=== PATIENT | female | born 1940 | race Caucasian/White ===

== ENCOUNTER 2018-06-01 19:38 | Inpatient (IN) | payer MEDICARE, BC ==
--- NOTE | 2018-06-01 22:15 | ED ---
Altered Mental Status HPI - General Chief Complaint: Altered Mental Status Stated Complaint: hallucinating Time Seen by Provider: 06/01/18 21:16 Source: family Mode of arrival: wheelchair Limitations: no limitations - History of Present Illness Initial Comments: This patient is a 78-year-old woman brought here to be evaluated because she was confused and disoriented. This came on tonight just after the patient had incision and drainage of an abscess that is located in the right groin area. This was performed at her primary care doctor's office, and following the procedure she had been given a dose of clindamycin. After the procedure, the patient was not acting appropriately. The patient's son called the clinic and they were directed to come to the emergency department. The patient does report that the abscess had been there probably for about a week. She denies fever or chills. She was denying systemic symptoms, including no chest pain, palpitations, or dyspnea. The main issue with the abscess was localized swelling and tenderness. MD Complaint: altered mental status, confusion -: hour(s) Severity: moderate - Related Data Home Medications Medication Instructions Recorded Confirmed Aspirin EC [Ecotrin Low Dose] 81 mg PO DAILY 09/30/13 06/01/18 Levothyroxine Sodium [Synthroid] 150 mcg PO DAILY 09/30/13 06/01/18 Docusate Sodium [Dulcolax Stool 100 mg PO DAILY 11/07/14 06/01/18 Softener] Pravastatin Sodium [Pravachol] 80 mg PO HS 11/07/14 06/01/18 Gabapentin [Neurontin] 300 mg PO HS 06/01/18 06/01/18 Losartan/Hydrochlorothiazide 1 tab PO DAILY 06/01/18 06/01/18 [Losartan-Hctz 100-25 mg Tab] Mirabegron [Myrbetriq] 25 mg PO DAILY 06/01/18 06/01/18 Multivitamins, Thera [Multivitamin 1 tab PO DAILY 06/01/18 06/01/18 (formulary)] Rivaroxaban [Xarelto] 15 mg PO DAILY 06/01/18 06/01/18 Sotalol [Betapace] 80 mg PO BID 06/01/18 06/01/18 Ticagrelor [Brilinta] 90 mg PO BID 01/08/19 01/08/19 Vortioxetine Hydrobromide 10 mg PO DAILY 06/01/18 06/01/18 [Trintellix] Allergies Allergy/AdvReac Type Severity Reaction Status Date / Time atorvastatin calcium Allergy MUSCLE Verified 06/01/18 21:23 [From Lipitor] ACHES azithromycin Allergy Rash/Hives Verified 06/01/18 21:23 [From Zithromax Z-Chau] codeine Allergy Unknown Verified 06/01/18 21:23 fluticasone propionate Allergy Unknown Verified 06/01/18 21:23 [From Flonase] hydrochlorothiazide Allergy Unknown Verified 06/01/18 21:23 [From Dyazide] lincomycin HCl Allergy Unknown Verified 06/01/18 21:23 [From Lincocin] meperidine HCl [From Demerol] Allergy Unknown Verified 06/01/18 21:23 metronidazole [From Flagyl] Allergy Unknown Verified 06/01/18 21:23 Metronidazole HCl Allergy Unknown Verified 06/01/18 21:23 [From Flagyl] Penicillins Allergy Unknown Verified 06/01/18 21:23 rosuvastatin calcium Allergy MUSCLE Verified 06/01/18 21:23 [From Crestor] ACHES Sulfa (Sulfonamide Allergy Unknown Verified 06/01/18 21:23 Antibiotics) tetracycline [Tetracycline] Allergy Unknown Verified 06/01/18 21:23 triamterene [From Dyazide] Allergy Unknown Verified 06/01/18 21:23 watermelon Allergy Swelling Uncoded 01/10/15 17:37 Review of Systems ROS Statement: Those systems with pertinent positive or pertinent negative responses have been documented in the HPI. ROS Other: All systems not noted in ROS Statement are negative. Constitutional: Denies: fever, chills Eyes: Denies: vision change Respiratory: Denies: cough, dyspnea Cardiovascular: Denies: chest pain, palpitations, syncope Gastrointestinal: Denies: abdominal pain, vomiting, diarrhea Genitourinary: Denies: dysuria, hematuria Musculoskeletal: Denies: back pain Skin: Reports: as per HPI, lesions Neurological: Reports: confusion. Denies: headache, weakness, numbness Past Medical History Past Medical History: Diabetes Mellitus, Hypertension, Osteoarthritis (OA), Pneumonia, Thyroid Disorder Additional Past Medical History / Comment(s): Right hip infection, 6-16-15 SHINGLES TO RT FACE/EYE History of Any Multi-Drug Resistant Organisms: VRE Date of last positivie culture/infection: 12/21/15 MDRO Source:: urine VRE Ec. faecalis Past Surgical History: Appendectomy, Hysterectomy, Joint Replacement, Orthopedic Surgery, Tonsillectomy Additional Past Surgical History / Comment(s): RT HIP REPLACEMENT AND HAD 3 SEPARATE SX, HAD POST OP INFECTION AND WITH LAST ONE THEY TOOK EVERYTHING OUT BUT PT THINKS THEY PUT IN SPACER. Past Anesthesia/Blood Transfusion Reactions: No Reported Reaction Past Psychological History: Depression Smoking Status: Never smoker Past Alcohol Use History: None Reported Past Drug Use History: None Reported - Past Family History Father History Unknown: Yes Family Medical History: Hypertension Additional Family Medical History / Comment(s): BRAIN TUMOR Mother Family Medical History: Cancer General Exam Limitations: no limitations General appearance: alert, in no apparent distress, obese Head exam: Present: atraumatic, normocephalic Eye exam: Present: normal appearance. Absent: scleral icterus, conjunctival injection ENT exam: Present: mucous membranes dry Neck exam: Present: normal inspection Respiratory exam: Present: normal lung sounds bilaterally. Absent: respiratory distress, wheezes, rales, rhonchi, stridor Cardiovascular Exam: Present: regular rate, normal rhythm, normal heart sounds. Absent: systolic murmur, diastolic murmur, rubs, gallop GI/Abdominal exam: Present: soft. Absent: distended, tenderness, guarding, rebound, rigid, mass Extremities exam: Present: normal inspection, normal capillary refill. Absent: pedal edema, calf tenderness Back exam: Present: normal inspection. Absent: CVA tenderness (R), CVA tenderness (L) Neurological exam: Present: alert Skin exam: Present: warm, dry, erythema, other (Patient has area of erythema to the right inguinal area. There has been drainage of what appears to be an abscess in that area. There is no active bleeding. The dressing does have a small amount of bloody purulent discharge, but there is nothing actively draining.) Course Vital Signs 06/01/18 06/02/18 06/02/18 19:44 09:19 14:38 Temperature 98.6 F 97.8 F Pulse Rate 104 H 70 Pulse Rate [ 73 Pulse Oximetery ] Respiratory 20 18 16 Rate Blood Pressure 146/80 132/64 Blood Pressure 129/70 [Left Arm] O2 Sat by Pulse 95 96 97 Oximetry Medical Decision Making - Medical Decision Making This patient is 78-year-old woman presenting to be evaluated for altered mental status after having undergone I&D for a groin abscess in the clinic. There does appear to be moderately severe overlying cellulitis, and given the patient' s comorbidities she is started on IV antibiotics will be admitted to ensure that there is improvement in the cellulitis. Patient has been under hospitalist group with consultation to surgery. - Lab Data Result diagrams: 06/05/18 08:11 06/07/18 07:02 Lab Results 06/01/18 06/01/18 06/01/18 Range/Units 21:52 21:52 21:52 WBC 20.2 H (3.8-10.6) k/uL RBC 4.16 (3.80-5.40) m/uL Hgb 10.9 L (11.4-16.0) gm/dL Hct 34.1 (34.0-46.0) % MCV 82.1 (80.0-100.0) fL MCH 26.3 (25.0-35.0) pg MCHC 32.1 (31.0-37.0) g/dL RDW 14.8 (11.5-15.5) % Plt Count 292 (150-450) k/uL Neutrophils % 85 % Lymphocytes % 6 % Monocytes % 8 % Eosinophils % 0 % Basophils % 0 % Neutrophils # 17.0 H (1.3-7.7) k/uL Lymphocytes # 1.2 (1.0-4.8) k/uL Monocytes # 1.6 H (0-1.0) k/uL Eosinophils # 0.1 (0-0.7) k/uL Basophils # 0.0 (0-0.2) k/uL Hypochromasia Slight PT 10.8 (9.0-12.0) sec INR 1.0 (<1.2) APTT 30.9 H (22.0-30.0) sec Sodium 138 (137-145) mmol/L Potassium 3.6 (3.5-5.1) mmol/L Chloride 104 (98-107) mmol/L Carbon Dioxide 26 (22-30) mmol/L Anion Gap 8 mmol/L BUN 22 H (7-17) mg/dL Creatinine 0.90 (0.52-1.04) mg/dL Est GFR (CKD-EPI)AfAm 71 (>60 ml/min/1.73 sqM) Est GFR (CKD-EPI)NonAf 62 (>60 ml/min/1.73 sqM) Glucose 168 H (74-99) mg/dL Plasma Lactic Acid Ankit (0.7-2.0) mmol/L Calcium 10.3 H (8.4-10.2) mg/dL Magnesium (1.6-2.3) mg/dL Total Bilirubin 0.9 (0.2-1.3) mg/dL AST 18 (14-36) U/L ALT 24 (9-52) U/L Alkaline Phosphatase 99 (38-126) U/L Troponin I (0.000-0.034) ng/mL Total Protein 6.9 (6.3-8.2) g/dL Albumin 3.9 (3.5-5.0) g/dL Amylase 36 (30-110) U/L Lipase 43 (23-300) U/L Urine Color Urine Appearance (Clear) Urine pH (5.0-8.0) Ur Specific [place] (1.001-1.035) Urine Protein (Negative) Urine Glucose (UA) (Negative) Urine Ketones (Negative) Urine Blood (Negative) Urine Nitrite (Negative) Urine Bilirubin (Negative) Urine Urobilinogen (<2.0) mg/dL Ur Leukocyte Esterase (Negative) Urine RBC (0-5) /hpf Urine WBC (0-5) /hpf Urine WBC Clumps (None) /hpf Ur Squamous Epith Cells (0-4) /hpf Amorphous Sediment (None) /hpf Urine Bacteria (None) /hpf Urine Mucus (None) /hpf 06/01/18 06/01/18 06/01/18 Range/Units 21:52 21:52 23:30 WBC (3.8-10.6) k/uL RBC (3.80-5.40) m/uL Hgb (11.4-16.0) gm/dL Hct (34.0-46.0) % MCV (80.0-100.0) fL MCH (25.0-35.0) pg MCHC (31.0-37.0) g/dL RDW (11.5-15.5) % Plt Count (150-450) k/uL Neutrophils % % Lymphocytes % % Monocytes % % Eosinophils % % Basophils % % Neutrophils # (1.3-7.7) k/uL Lymphocytes # (1.0-4.8) k/uL Monocytes # (0-1.0) k/uL Eosinophils # (0-0.7) k/uL Basophils # (0-0.2) k/uL Hypochromasia PT (9.0-12.0) sec INR (<1.2) APTT (22.0-30.0) sec Sodium (137-145) mmol/L Potassium (3.5-5.1) mmol/L Chloride (98-107) mmol/L Carbon Dioxide (22-30) mmol/L Anion Gap mmol/L BUN (7-17) mg/dL Creatinine (0.52-1.04) mg/dL Est GFR (CKD-EPI)AfAm (>60 ml/min/1.73 sqM) Est GFR (CKD-EPI)NonAf (>60 ml/min/1.73 sqM) Glucose (74-99) mg/dL Plasma Lactic Acid Ankit 1.6 (0.7-2.0) mmol/L Calcium (8.4-10.2) mg/dL Magnesium (1.6-2.3) mg/dL Total Bilirubin (0.2-1.3) mg/dL AST (14-36) U/L ALT (9-52) U/L Alkaline Phosphatase (38-126) U/L Troponin I <0.012 (0.000-0.034) ng/mL Total Protein (6.3-8.2) g/dL Albumin (3.5-5.0) g/dL Amylase (30-110) U/L Lipase (23-300) U/L Urine Color Yellow Urine Appearance Clear (Clear) Urine pH 6.5 (5.0-8.0) Ur Specific [place] 1.017 (1.001-1.035) Urine Protein 1+ H (Negative) Urine Glucose (UA) Negative (Negative) Urine Ketones 2+ H (Negative) Urine Blood Negative (Negative) Urine Nitrite Negative (Negative) Urine Bilirubin Negative (Negative) Urine Urobilinogen <2.0 (<2.0) mg/dL Ur Leukocyte Esterase Large H (Negative) Urine RBC 1 (0-5) /hpf Urine WBC 10 H (0-5) /hpf Urine WBC Clumps Rare H (None) /hpf Ur Squamous Epith Cells 6 H (0-4) /hpf Amorphous Sediment Rare H (None) /hpf Urine Bacteria Rare H (None) /hpf Urine Mucus Occasional H (None) /hpf 06/02/18 06/02/18 06/02/18 Range/Units 02:00 02:00 02:00 WBC 18.2 H (3.8-10.6) k/uL RBC 3.90 (3.80-5.40) m/uL Hgb 10.3 L (11.4-16.0) gm/dL Hct 31.7 L (34.0-46.0) % MCV 81.4 (80.0-100.0) fL MCH 26.4 (25.0-35.0) pg MCHC 32.4 (31.0-37.0) g/dL RDW 14.9 (11.5-15.5) % Plt Count 261 (150-450) k/uL Neutrophils % 82 % Lymphocytes % 8 % Monocytes % 8 % Eosinophils % 1 % Basophils % 0 % Neutrophils # 15.0 H (1.3-7.7) k/uL Lymphocytes # 1.5 (1.0-4.8) k/uL Monocytes # 1.4 H (0-1.0) k/uL Eosinophils # 0.1 (0-0.7) k/uL Basophils # 0.0 (0-0.2) k/uL Hypochromasia Slight PT (9.0-12.0) sec INR (<1.2) APTT (22.0-30.0) sec Sodium 136 L (137-145) mmol/L Potassium 3.3 L (3.5-5.1) mmol/L Chloride 104 (98-107) mmol/L Carbon Dioxide 25 (22-30) mmol/L Anion Gap 7 mmol/L BUN 21 H (7-17) mg/dL Creatinine 0.79 (0.52-1.04) mg/dL Est GFR (CKD-EPI)AfAm 84 (>60 ml/min/1.73 sqM) Est GFR (CKD-EPI)NonAf 73 (>60 ml/min/1.73 sqM) Glucose 165 H (74-99) mg/dL Plasma Lactic Acid Ankit (0.7-2.0) mmol/L Calcium 9.8 (8.4-10.2) mg/dL Magnesium 2.0 (1.6-2.3) mg/dL Total Bilirubin 1.1 (0.2-1.3) mg/dL AST 14 (14-36) U/L ALT 28 (9-52) U/L Alkaline Phosphatase 80 (38-126) U/L Troponin I (0.000-0.034) ng/mL Total Protein 6.4 (6.3-8.2) g/dL Albumin 3.5 (3.5-5.0) g/dL Amylase (30-110) U/L Lipase (23-300) U/L Urine Color Urine Appearance (Clear) Urine pH (5.0-8.0) Ur Specific [place] (1.001-1.035) Urine Protein (Negative) Urine Glucose (UA) (Negative) Urine Ketones (Negative) Urine Blood (Negative) Urine Nitrite (Negative) Urine Bilirubin (Negative) Urine Urobilinogen (<2.0) mg/dL Ur Leukocyte Esterase (Negative) Urine RBC (0-5) /hpf Urine WBC (0-5) /hpf Urine WBC Clumps (None) /hpf Ur Squamous Epith Cells (0-4) /hpf Amorphous Sediment (None) /hpf Urine Bacteria (None) /hpf Urine Mucus (None) /hpf Critical Care Time Critical Care Time: Yes (30 minutes) Disposition Clinical Impression: Abscess of right groin, Altered mental status, Diabetes Disposition: ADMITTED IP TO THIS [facility] Condition: Serious
[2018-06-01 22:24] LABS: Basophils % (A) 0 %; Eosinophils # (A) 0.1 k/uL (0-0.7); Eosinophils % (A) 0 %; HCT 34.1 % (34.0-46.0); HGB 10.9 gm/dL (11.4-16.0); Hypochromasia Slight; Lymphocytes # (A) 1.2 k/uL (1.0-4.8); Lymphocytes % (A) 6 %; MCH 26.3 pg (25.0-35.0); MCHC 32.1 g/dL (31.0-37.0); MCV 82.1 fL (80.0-100.0); Mean Platelet Volume 8.6; Monocytes # (A) 1.6 k/uL (0-1.0); Monocytes % (A) 8 %; Neutrophils % (A) 85 %; Platelet Count 292 k/uL (150-450); RBC 4.16 m/uL (3.80-5.40); RDW 14.8 % (11.5-15.5); WBC 20.2 k/uL (3.8-10.6)
[2018-06-01 22:34] LABS: Partial Thromboplastin Time 30.9 sec (22.0-30.0); Prothrombin Time 10.8 sec (9.0-12.0)
[2018-06-01 22:45] LABS: Albumin 3.9 g/dL (3.5-5.0); Calcium 10.3 mg/dL (8.4-10.2); Potassium 3.6 mmol/L (3.5-5.1); Total Bilirubin 0.9 mg/dL (0.2-1.3); Total Protein 6.9 g/dL (6.3-8.2)
[2018-06-02 06:09] LABS: Amorphous Sediment,Urine Rare /hpf; Appearance,Urine Clear (Clear); Bacteria,Urine Rare /hpf; Bilirubin,Urine Negative (Negative); Blood,Urine Negative (Negative); Color,Urine Yellow; Glucose,Urine (UA) Negative (Negative); Ketones,Urine 2+ (Negative); Leukocyte Esterase,Urine Large (Negative); Mucus,Urine Occasional /hpf; Nitrite,Urine Negative (Negative); PH, Urine 6.5 (5.0-8.0); Protein,Urine 1+ (Negative); RBC,Urine 1 /hpf (0-5); Specific Gravity,Urine 1.017 (1.001-1.035); Squamous Epithelial Cell,Urine 6 /hpf (0-4); Urobilinogen,Urine <2.0 mg/dL (<2.0); WBC,Urine 10 /hpf (0-5)
[2018-06-02 06:37] LABS: Albumin 3.5 g/dL (3.5-5.0); Calcium 9.8 mg/dL (8.4-10.2); Potassium 3.3 mmol/L (3.5-5.1); Total Bilirubin 1.1 mg/dL (0.2-1.3); Total Protein 6.4 g/dL (6.3-8.2)
[2018-06-02 06:50] LABS: Basophils % (A) 0 %; Eosinophils # (A) 0.1 k/uL (0-0.7); Eosinophils % (A) 1 %; HCT 31.7 % (34.0-46.0); HGB 10.3 gm/dL (11.4-16.0); Hypochromasia Slight; Lymphocytes # (A) 1.5 k/uL (1.0-4.8); Lymphocytes % (A) 8 %; MCH 26.4 pg (25.0-35.0); MCHC 32.4 g/dL (31.0-37.0); MCV 81.4 fL (80.0-100.0); Mean Platelet Volume 8.4; Monocytes # (A) 1.4 k/uL (0-1.0); Monocytes % (A) 8 %; Neutrophils % (A) 82 %; Platelet Count 261 k/uL (150-450); RDW 14.9 % (11.5-15.5); WBC 18.2 k/uL (3.8-10.6)
[2018-06-02] MEDS ORDERED: NALOXONE 0.4 MG/ML 1 ML VIAL IV PRN (07:15)
[2018-06-02] MEDS ORDERED: ONDANSETRON 4 MG/2 ML VIAL IVP PRN (07:15)
[2018-06-02] MEDS ORDERED: VANCOMYCIN IV PER PHARMACY 1 EACH MISC MISCELLANE PRN (07:25)
[2018-06-02] MEDS ORDERED: VANCOMYCIN 1,750 MG in SODIUM CHLORIDE 0.9% 500 ML 500 ML IVPB STA (07:30)
[2018-06-02] MEDS ORDERED: LOSARTAN-HCTZ 50-12.5 MG 1 EACH TAB PO SCH (09:00)
[2018-06-02] MEDS ORDERED: RIVAROXABAN 15 MG TAB PO SCH (09:00)
[2018-06-02] MEDS: ASPIRIN 81 MG PO SCH (09:09)
[2018-06-02] MEDS: MULTIVITAMINS, THERA 1 EACH TAB PO SCH (09:10)
[2018-06-02] MEDS: FAMOTIDINE 20 MG TAB PO SCH ×2 (09:10→20:32)
[2018-06-02] MEDS: ACETAMINOPHEN TAB 325 MG TAB PO PRN (09:10)
[2018-06-02] MEDS: VORTIOXETINE HYDROBROMIDE 10 MG TABLET PO SCH (09:11)
[2018-06-02] MEDS: SOTALOL 80 MG TAB PO SCH ×2 (09:11→20:31)
[2018-06-02] MEDS: LEVOTHYROXINE 75 MCG TAB PO SCH (09:12)
[2018-06-02] MEDS: TICAGRELOR 90 MG TAB PO SCH ×2 (09:12→20:29)
[2018-06-02] MEDS: DOCUSATE 100 MG CAP PO SCH (09:13)
[2018-06-02] MEDS: SODIUM CHLORIDE 0.9% 1,000 ML IV SCH (09:14)
--- NOTE | 2018-06-02 12:22 | CT ---
EXAM: CT Abdomen and Pelvis With Intravenous Contrast CLINICAL HISTORY: rt side pain, r/o abcess TECHNIQUE: Axial computed tomography images of the abdomen and pelvis with intravenous contrast. CTDI is 14.7+15 mGy and DLP is 1406.9 mGy-cm. This CT exam was performed using one or more of the following dose reduction techniques: automated exposure control, adjustment of the mA and/or kV according to patient size, and/or use of iterative reconstruction technique. COMPARISON: No relevant prior studies available. FINDINGS: Lung bases: Unremarkable. No mass. No consolidation. ABDOMEN: Liver: Unremarkable. No mass. Gallbladder and bile ducts: Unremarkable. No calcified stones. No ductal dilation. Pancreas: Unremarkable. No evidence of mass. No ductal dilation. Spleen: 16 mm splenic cyst. Adrenals: 12 mm indeterminate left adrenal nodule is incompletely characterized on this exam. Kidneys and ureters: Unremarkable. No solid mass. No hydronephrosis. Stomach and bowel: Diverticulosis without evidence of diverticulitis. No obstruction. PELVIS: Appendix: Nonvisualization of the appendix. Bladder: Unremarkable. No evidence of mass. Reproductive: Unremarkable as visualized. ABDOMEN and PELVIS: Intraperitoneal space: Unremarkable. No free air. No significant fluid collection. Bones/joints: Right total hip arthroplasty. Beam hardening artifact from the hardware degrades pelvis evaluation. Nonspecific edema within the right hip musculature. Soft tissues: See above. Vasculature: Unremarkable. No abdominal aortic aneurysm. Lymph nodes: Mildly prominent bilateral inguinal lymph nodes of uncertain etiology or significance. IMPRESSION: 1. Right total hip arthroplasty. Beam hardening artifact from the hardware degrades pelvis evaluation. 2. 12 mm indeterminate left adrenal nodule is incompletely characterized on this exam. 3. Nonspecific edema within the right hip musculature. 4. Diverticulosis without evidence of diverticulitis. 5. Mildly prominent bilateral inguinal lymph nodes of uncertain etiology or significance.
[2018-06-02] MEDS: Mirabegron [Myrbetriq] 25 MG PO SCH (12:55)
[2018-06-02] MEDS ORDERED: Potassium Replacement Protocol 1 EACH MISC MISCELLANE PRN (13:10)
[2018-06-02 13:31] VITALS: BMI 36.3
--- NOTE | 2018-06-02 17:05 | P.PN ---
Progress Note - Text Progress Note Date: 06/02/18 Patient has a chronic right groin abscess. This is been present for several weeks. On exam there is some necrotic tissue the right groin with purulent drainage. Patient will undergo operative incision and drainage and debridement tomorrow a.m.
[2018-06-02] MEDS: GABAPENTIN 300 MG CAP PO SCH (20:32)
[2018-06-02] MEDS: PRAVASTATIN SODIUM 80 MG TAB PO SCH (20:32)
--- NOTE | 2018-06-02 21:39 | P.HPIM ---
History of Present Illness H&P Date: 06/02/18 Chief Complaint: Right groin abscess Patient is a 78-year-old female with known history of hypertension, diabetes type 2, history of [place], hypothyroidism and history of cardiac Stent placement, coronary artery disease and is currently on anticoagulation with xarelto was brought to ER to be evaluated because she was confused and disoriented. This came on tonight just after the patient had incision and drainage of an abscess that is located in the right groin area. This was performed at her primary care doctor's office, and following the procedure she had been given a dose of clindamycin. After the procedure, the patient was not acting appropriately. The patient's son called the clinic and they were directed to come to the emergency department. The patient does report that the abscess had been there probably for about 2 weeks. Patient is currently more oriented now. Patient does have right groin pain. No complaints of chest pain or shortness of breath. No nausea vomiting or diarrhea. Patient does have subjective fever or chills. She was denying systemic symptoms, including no chest pain, palpitations, or dyspnea. CT abdomen and pelvis showed right hip arthroplasty. 12 mm indeterminate left adrenal nodule is completely characterized on this exam. Nonspecific edema within right hip musculature. Diverticulosis without evidence of diverticulitis Mildly prominent bilateral inguinal lymph nodes of uncertain etiology or significance. Review of Systems Constitutional: Objective fever and chills . No generalized weakness or weight loss. Abdomen: Patient denied nausea vomiting and diarrhea and abdominal pain. Cardiovascular: Patient denies any chest pain or short of breath no palpitations. Respiratory: patient denied any cough is from production. No shortness of breath Neurologic: Patient denied any numbness or tingling headache. Musculoskeletal: Patient denies any complaints of joint swelling or deformity. Right groin pain. Skin: Negative Psychiatric: Negative Endocrine: No heat or cold intolerance. No recent weight gain. Genitourinary: No dysuria or hematuria. All other 14 point ROS negative except the above Past Medical History Past Medical History: Diabetes Mellitus, Hypertension, Myocardial Infarction (PA ), Osteoarthritis (OA), Pneumonia, Thyroid Disorder Additional Past Medical History / Comment(s): heart cath with stents (2), 2018 Last Myocardial Infarction Date:: 2018 History of Any Multi-Drug Resistant Organisms: VRE Date of last positivie culture/infection: 12/21/15 MDRO Source:: urine VRE Ec. faecalis Past Surgical History: Appendectomy, Hysterectomy, Joint Replacement, Orthopedic Surgery, Tonsillectomy Additional Past Surgical History / Comment(s): RT HIP REPLACEMENT AND HAD 6 TOTAL SX, HAD POST OP INFECTION Past Anesthesia/Blood Transfusion Reactions: No Reported Reaction Past Psychological History: Depression Smoking Status: Never smoker Past Alcohol Use History: None Reported Past Drug Use History: None Reported - Past Family History Father History Unknown: Yes Family Medical History: Hypertension Additional Family Medical History / Comment(s): BRAIN TUMOR Mother Family Medical History: Cancer Medications and Allergies Home Medications Medication Instructions Recorded Confirmed Type Aspirin EC [Ecotrin Low Dose] 81 mg PO DAILY 09/30/13 06/01/18 History Levothyroxine Sodium [Synthroid] 150 mcg PO DAILY 09/30/13 06/01/18 History Docusate Sodium [Dulcolax Stool 100 mg PO DAILY 11/07/14 06/01/18 History Softener] Pravastatin Sodium [Pravachol] 80 mg PO HS 11/07/14 06/01/18 History Gabapentin [Neurontin] 300 mg PO HS 06/01/18 06/01/18 History Losartan/Hydrochlorothiazide 1 tab PO DAILY 06/01/18 06/01/18 History [Losartan-Hctz 100-25 mg Tab] Mirabegron [Myrbetriq] 25 mg PO DAILY 06/01/18 06/01/18 History Multivitamins, Thera [Multivitamin 1 tab PO DAILY 06/01/18 06/01/18 History (formulary)] Rivaroxaban [Xarelto] 15 mg PO DAILY 06/01/18 06/01/18 History Sotalol [Betapace] 80 mg PO BID 06/01/18 06/01/18 History Ticagrelor [Brilinta] 90 mg PO BID 06/01/18 06/01/18 History Vortioxetine Hydrobromide 10 mg PO DAILY 06/01/18 06/01/18 History [Trintellix] Allergies Allergy/AdvReac Type Severity Reaction Status Date / Time atorvastatin calcium Allergy MUSCLE Verified 06/01/18 21:23 [From Lipitor] ACHES azithromycin Allergy Rash/Hives Verified 06/01/18 21:23 [From Zithromax Z-Chau] codeine Allergy Unknown Verified 06/01/18 21:23 fluticasone propionate Allergy Unknown Verified 06/01/18 21:23 [From Flonase] hydrochlorothiazide Allergy Unknown Verified 06/01/18 21:23 [From Dyazide] hydromorphone HCl Allergy Unknown Verified 06/01/18 21:23 [From Dilaudid] lincomycin HCl Allergy Unknown Verified 06/01/18 21:23 [From Lincocin] meperidine HCl [From Demerol] Allergy Unknown Verified 06/01/18 21:23 metronidazole [From Flagyl] Allergy Unknown Verified 06/01/18 21:23 Metronidazole HCl Allergy Unknown Verified 06/01/18 21:23 [From Flagyl] Penicillins Allergy Unknown Verified 06/01/18 21:23 rosuvastatin calcium Allergy MUSCLE Verified 06/01/18 21:23 [From Crestor] ACHES Sulfa (Sulfonamide Allergy Unknown Verified 06/01/18 21:23 Antibiotics) tetracycline [Tetracycline] Allergy Unknown Verified 06/01/18 21:23 triamterene [From Dyazide] Allergy Unknown Verified 06/01/18 21:23 watermelon Allergy Swelling Uncoded 01/10/15 17:37 Physical Exam Vitals: Vital Signs Temp Pulse Resp BP Pulse Ox 06/02/18 09:19 70 18 132/64 96 06/01/18 19:44 98.6 F 104 H 20 146/80 95 Intake and Output 06/01/18 06/02/18 06/02/18 22:59 06:59 14:59 Other: Weight 96.162 kg 96 kg PHYSICAL EXAMINATION: Patient is lying in the bed comfortably, no acute distress, awake alert and oriented. Mild confusion.. HEENT: Normocephalic. Neck is supple. Pupils reactive. Nostrils clear. Oral cavity is moist. Ears reveal no drainage. Neck reveals no JVD, carotid bruits, or thyromegaly. CHEST EXAMINATION: Trachea is central. Symmetrical expansion. Lung keen clear to auscultation and percussion. CARDIAC: Normal S1, S2 with no gallops. No murmurs ABDOMEN: Soft. Bowel sounds normal. No organomegaly. No abdominal bruits. Extremities: reveal no edema. No clubbing or cyanosis. Right groin wound is packed at this time. No purulent drainage noted. Patient does have surrounding cellulitis with redness and tenderness. Neurologically awake, alert, oriented x2-3 with well-coordinated movements. No focal deficits noted Skin: No rash or skin lesions. Psychiatric: Coperative. Nonsuicidal Musculoskeletal: No joint swelling or deformity. Normal range of motion. Results CBC & Chem 7: 06/02/18 02:00 06/02/18 02:00 Labs: Abnormal Lab Results - Last 24 Hours (Table) 06/01/18 06/01/18 06/01/18 Range/Units 21:52 21:52 21:52 WBC 20.2 H (3.8-10.6) k/uL Hgb 10.9 L (11.4-16.0) gm/dL Hct (34.0-46.0) % Neutrophils # 17.0 H (1.3-7.7) k/uL Monocytes # 1.6 H (0-1.0) k/uL APTT 30.9 H (22.0-30.0) sec Sodium (137-145) mmol/L Potassium (3.5-5.1) mmol/L BUN 22 H (7-17) mg/dL Glucose 168 H (74-99) mg/dL Calcium 10.3 H (8.4-10.2) mg/dL Urine Protein (Negative) Urine Ketones (Negative) Ur Leukocyte Esterase (Negative) Urine WBC (0-5) /hpf Urine WBC Clumps (None) /hpf Ur Squamous Epith Cells (0-4) /hpf Amorphous Sediment (None) /hpf Urine Bacteria (None) /hpf Urine Mucus (None) /hpf 06/01/18 06/02/18 06/02/18 Range/Units 23:30 02:00 02:00 WBC 18.2 H (3.8-10.6) k/uL Hgb 10.3 L (11.4-16.0) gm/dL Hct 31.7 L (34.0-46.0) % Neutrophils # 15.0 H (1.3-7.7) k/uL Monocytes # 1.4 H (0-1.0) k/uL APTT (22.0-30.0) sec Sodium 136 L (137-145) mmol/L Potassium 3.3 L (3.5-5.1) mmol/L BUN 21 H (7-17) mg/dL Glucose 165 H (74-99) mg/dL Calcium (8.4-10.2) mg/dL Urine Protein 1+ H (Negative) Urine Ketones 2+ H (Negative) Ur Leukocyte Esterase Large H (Negative) Urine WBC 10 H (0-5) /hpf Urine WBC Clumps Rare H (None) /hpf Ur Squamous Epith Cells 6 H (0-4) /hpf Amorphous Sediment Rare H (None) /hpf Urine Bacteria Rare H (None) /hpf Urine Mucus Occasional H (None) /hpf Microbiology - Last 24 Hours (Table) 06/01/18 23:30 Urine Culture - Preliminary Urine,Clean Catch Thrombosis Risk Factor Assmnt - DVT/VTE Prophylaxis DVT/VTE Prophylaxis: Pharmacologic Prophylaxis ordered - Choose All That Apply Any of the Below Risk Factors Present?: Yes Each Factor Represents 1 point: Obesity (BMI >25) Other Risk Factors: Yes Each Risk Factor Represents 2 Points: Age 61-74 years Thrombosis Risk Factor Assessment Total Risk Factor Score: 3 Thrombosis Risk Factor Assessment Level: Moderate Risk Assessment and Plan Assessment: Sepsis secondary to right groin abscess. Status post I&D Hypokalemia Altered mental status possible medication reaction. Improved now Diabetes type 2 Hypothyroidism Coronary artery disease with history of stent placement History of [place] History of right hip surgery and revision 6 with postoperative infection Depression Patient is on anticoagulation. Exact etiology unknown. Plan: Patient will be continued on antibiotics in the form of vancomycin. Gentle hydration. Continue the home medications. Will hold hydrochlorothiazide due to hyperkalemia. Anticoagulation will be held for tomorrow morning dose for I& D as per general surgery. Follow-up culture reports. Further recommendations based on the clinical course. Prognosis is guarded with multiple medical problems and comorbid conditions. Time with Patient: Greater than 30
[2018-06-03] MEDS: VANCOMYCIN 1,500 MG in SODIUM CHLORIDE 0.9% 250 ML IVPB SCH ×2 (00:04→15:44)
[2018-06-03] MEDS: LEVOTHYROXINE 75 MCG TAB PO SCH (06:14)
[2018-06-03] MEDS: SODIUM CHLORIDE 0.9% 1,000 ML IV SCH (08:22)
[2018-06-03] MEDS: DOCUSATE 100 MG CAP PO SCH (08:23)
[2018-06-03] MEDS: LOSARTAN 50 MG TAB PO SCH (08:23)
[2018-06-03] MEDS: FAMOTIDINE 20 MG TAB PO SCH ×2 (08:23→20:21)
[2018-06-03] MEDS: ASPIRIN 81 MG PO SCH (08:23)
[2018-06-03] MEDS: VORTIOXETINE HYDROBROMIDE 10 MG TABLET PO SCH (08:24)
[2018-06-03] MEDS: MULTIVITAMINS, THERA 1 EACH TAB PO SCH (08:24)
[2018-06-03] MEDS: TICAGRELOR 90 MG TAB PO SCH ×2 (08:24→20:22)
[2018-06-03] MEDS: Mirabegron [Myrbetriq] 25 MG PO SCH (08:24)
[2018-06-03] MEDS: SOTALOL 80 MG TAB PO SCH ×2 (08:24→20:21)
[2018-06-03 09:21] LABS: Basophils % (A) 1 %; Eosinophils # (A) 0.2 k/uL (0-0.7); Eosinophils % (A) 2 %; HCT 29.7 % (34.0-46.0); HGB 9.4 gm/dL (11.4-16.0); Hypochromasia Moderate; Lymphocytes # (A) 0.8 k/uL (1.0-4.8); Lymphocytes % (A) 9 %; MCH 26.3 pg (25.0-35.0); MCHC 31.7 g/dL (31.0-37.0); MCV 82.9 fL (80.0-100.0); Monocytes # (A) 0.6 k/uL (0-1.0); Monocytes % (A) 7 %; Neutrophils # (A) 6.9 k/uL (1.3-7.7); Neutrophils % (A) 79 %; Platelet Count 273 k/uL (150-450); RBC 3.58 m/uL (3.80-5.40); RDW 14.7 % (11.5-15.5); WBC 8.7 k/uL (3.8-10.6)
[2018-06-03 10:08] LABS: Calcium 9.7 mg/dL (8.4-10.2); Potassium 3.4 mmol/L (3.5-5.1)
[2018-06-03] MEDS: LACTATED RINGERS 1,000 ML IV ONE (12:25)
[2018-06-03] MEDS ORDERED: SUCCINYLCHOLINE CHLORIDE 100 MG/5 ML SYR IV ONE (12:36)
[2018-06-03] MEDS ORDERED: MIDAZOLAM 2 MG/2 ML VIAL ONE (12:36)
[2018-06-03] MEDS ORDERED: LIDOCAINE 1% INJ 10MG/ML (20 ML MDV) ONE (12:36)
[2018-06-03] MEDS ORDERED: fentaNYL (PF) 50 MCG/ML 2 ML AMP ONE (12:36)
[2018-06-03] MEDS ORDERED: PROPOFOL 10 MG/ML 20 ML VIAL IV ONE (12:36)
[2018-06-03] MEDS ORDERED: ePHEDrine SULFATE/0.9% NACL/PF 50 MG/5 ML SYRINGE IV ONE (12:36)
[2018-06-03 12:39] LABS: Glucose,Whole Blood 146 mg/dL (75-99)
--- NOTE | 2018-06-03 12:52 | P.PN ---
Subjective Progress Note Date: 06/03/18 78-year-old female admitted to the hospital for right groin abscess. Patient underwent I&D yesterday at her primary care physician's office. She was prescribed clindamycin and after procedure the patient's family stated the patient was not acting like herself and called her physician where she was directed to come to the emergency room. General surgery was consulted for further evaluation. The patient is scheduled for I&D of right groin abscess today with Dr. Sweet. Patient is on anticoagulation with Xarelto which is on hold for OR. PHYSICAL EXAM: GENERAL: This is a 78-year-old female in no apparent distress at the time of examination. Pleasant and cooperative. RESPIRATORY: Clear to auscultation. Equal expansion. CARDIOVASCULAR: Regular rate and rhythm. S1 and S2 noted. GASTROINTESTINAL: Soft and round. No distention noted. INTEGUMENTARY: Right groin abscess present. Currently dressed with gauze. Very tender to minimal palpation. No cyanosis. No jaundice. No rashes noted. EXTREMITIES: 2+ peripheral pulses. No evidence of peripheral edema. NEUROLOGIC: Cranial nerves II-XII grossly intact. PSYCHIATRIC: Awake, alert, and oriented X 3. Appropriate affect. Intact judgement and insight. ASSESSMENT: Right groin abscess S/P I&D at PCP, culture performed 06/01/18 positive for presumptive MRSA Sepsis, present on admission, secondary to abscess Diverticulosis without evidence of diverticulitis Diabetes mellitus, type II Coronary artery disease, on long-term anticoagulation with Xarelto PLAN: Patient is scheduled for I&D of abscess today. Xarelto remains on hold. Continue antibiotics. Infectious disease has been consulted. Nurse practitioner note has been reviewed by physician. Signing provider agrees with the documented findings, assessment, and plan of care. Objective - Vital Signs Vital signs: Vital Signs Temp 97.1 F L 06/03/18 07:00 Pulse 69 06/03/18 08:00 Resp 18 06/03/18 08:00 BP 138/69 06/03/18 07:00 Pulse Ox 97 06/03/18 07:00 Intake & Output 06/02/18 06/03/18 06/03/18 18:59 06:59 18:59 Weight 96 kg Other: Voiding Method Toilet Toilet # Voids 3 2 # Bowel Movements 0 - Labs CBC & Chem 7: 01/10/19 08:53 06/03/18 08:53 Labs: Abnormal Lab Results - Last 24 Hours (Table) 06/03/18 06/03/18 Range/Units 08:53 08:53 RBC 3.58 L (3.80-5.40) m/uL Hgb 9.4 L (11.4-16.0) gm/dL Hct 29.7 L (34.0-46.0) % Lymphocytes # 0.8 L (1.0-4.8) k/uL Potassium 3.4 L (3.5-5.1) mmol/L BUN 19 H (7-17) mg/dL Glucose 126 H (74-99) mg/dL Microbiology - Last 24 Hours (Table) 06/01/18 21:52 Blood Culture - Preliminary Blood No Growth after 24 hours 06/01/18 23:30 Urine Culture - Preliminary Urine,Clean Catch
--- NOTE | 2018-06-03 13:12 | P.OP ---
Date of Procedure: 06/03/18 Preoperative Diagnosis: Right groin abscess Postoperative Diagnosis: Right groin abscess Procedure(s) Performed: Incision and debridement of right groin abscess Anesthesia: PAPA Surgeon: Sumit Sweet Estimated Blood Loss (ml): 10 Pathology: other (Necrotic fat, wound tissue culture) Condition: stable Disposition: PACU Description of Procedure: Patient's placed on the operative table in the supine position. She received IV and general anesthesia. The right groin was prepped and draped usual sterile fashion. Patient had a abscess in the right groin. There was a full dermal skin defect measured prostate 2 cm diameter. There is indurated fat this area. An elliptical incision was made around the abscess cavity. The nonviable fat was dissected using sharp dissection with cautery. The wound measured approximately 10 x 8 x 4 cm deep. The specimens of pathology. A portion of the necrotic fat was sent for a tissue culture. The wound was packed with Kerlix with half-strength Betadine. Patient top she will was sent to recovery in stable condition.
[2018-06-03] MEDS: HYDROmorphone 1 MG/ML 1 ML SYRINGE IVP ONE ×2 (13:28→13:35)
[2018-06-03 13:42] LABS: Glucose,Whole Blood 135 mg/dL (75-99)
[2018-06-03] MEDS ORDERED: HYDROmorphone 0.5 MG/0.5 ML SYRINGE IVP STA (15:29)
[2018-06-03] MEDS: RIVAROXABAN 15 MG TAB PO SCH (17:20)
[2018-06-03] MEDS: GABAPENTIN 300 MG CAP PO SCH (20:21)
[2018-06-03] MEDS: PRAVASTATIN SODIUM 80 MG TAB PO SCH (20:21)
[2018-06-03] MEDS: HYDROmorphone 1 MG/ML 1 ML SYRINGE IVP PRN (20:43)
--- NOTE | 2018-06-03 23:58 | P.PN ---
Subjective Progress Note Date: 06/03/18 Principal diagnosis: Right groin abscess and surrounding cellulitis Patient is a 78-year-old female with known history of hypertension, diabetes type 2, history of [place], hypothyroidism and history of cardiac Stent placement, coronary artery disease and is currently on anticoagulation with xarelto was brought to ER to be evaluated because she was confused and disoriented. This came on tonight just after the patient had incision and drainage of an abscess that is located in the right groin area. This was performed at her primary care doctor's office, and following the procedure she had been given a dose of clindamycin. After the procedure, the patient was not acting appropriately. The patient's son called the clinic and they were directed to come to the emergency department. The patient does report that the abscess had been there probably for about 2 weeks. Patient is currently more oriented now. Patient does have right groin pain. No complaints of chest pain or shortness of breath. No nausea vomiting or diarrhea. Patient does have subjective fever or chills. She was denying systemic symptoms, including no chest pain, palpitations, or dyspnea. CT abdomen and pelvis showed right hip arthroplasty. 12 mm indeterminate left adrenal nodule is completely characterized on this exam. Nonspecific edema within right hip musculature. Diverticulosis without evidence of diverticulitis Mildly prominent bilateral inguinal lymph nodes of uncertain etiology or significance. 06/03/2018 Patient is status post right groin incision and drainage. Complaining of right groin pain and a dose of IV Dilaudid was given. Denied any complaints of chest pain or shortness of breath. No fever no chills. Leukocytosis is trending down. Follow-up final wound culture report. ID will be consulted. Urine cultures showed greater than 100,000 normal skin dimitrios. Discussed with the family at bedside in detail Current medications reviewed. Objective - Vital Signs Vital signs: Vital Signs Temp 96.2 F L 06/03/18 14:45 Pulse 70 06/03/18 15:30 Resp 16 06/03/18 14:57 BP 136/71 06/03/18 15:30 Pulse Ox 97 06/03/18 15:30 Intake & Output 06/03/18 06/03/18 06/04/18 06:59 18:59 06:59 Intake Total 400 Output Total 10 Balance 390 Intake: IV 400 Output: Estimated Blood Loss 10 Other: Voiding Method Toilet # Voids 2 2 # Bowel Movements 0 - Exam PHYSICAL EXAMINATION: Patient is lying in the bed comfortably, no acute distress, awake alert and oriented.. HEENT: Normocephalic. Neck is supple. Pupils reactive. Nostrils clear. Oral cavity is moist. Ears reveal no drainage. Neck reveals no JVD, carotid bruits, or thyromegaly. CHEST EXAMINATION: Trachea is central. Symmetrical expansion. Lung keen clear to auscultation and percussion. CARDIAC: Normal S1, S2 with no gallops. No murmurs ABDOMEN: Soft. Bowel sounds normal. No organomegaly. No abdominal bruits. Extremities: reveal no edema. No clubbing or cyanosis. Right groin wound is packed at this time. Neurologically awake, alert, oriented x3 with well-coordinated movements. No focal deficits noted Skin: No rash or skin lesions. Psychiatric: Coperative. Nonsuicidal. Anxious Musculoskeletal: No joint swelling or deformity. Normal range of motion. - Labs CBC & Chem 7: 06/03/18 08:53 06/03/18 08:53 Labs: Abnormal Lab Results - Last 24 Hours (Table) 06/03/18 06/03/18 06/03/18 Range/Units 08:53 08:53 12:35 RBC 3.58 L (3.80-5.40) m/uL Hgb 9.4 L (11.4-16.0) gm/dL Hct 29.7 L (34.0-46.0) % Lymphocytes # 0.8 L (1.0-4.8) k/uL Potassium 3.4 L (3.5-5.1) mmol/L BUN 19 H (7-17) mg/dL Glucose 126 H (74-99) mg/dL POC Glucose (mg/dL) 146 H (75-99) mg/dL 06/03/18 Range/Units 13:39 RBC (3.80-5.40) m/uL Hgb (11.4-16.0) gm/dL Hct (34.0-46.0) % Lymphocytes # (1.0-4.8) k/uL Potassium (3.5-5.1) mmol/L BUN (7-17) mg/dL Glucose (74-99) mg/dL POC Glucose (mg/dL) 135 H (75-99) mg/dL Microbiology - Last 24 Hours (Table) 06/03/18 12:50 Anaerobic Culture - Preliminary Groin 06/03/18 12:50 Wound Culture - Preliminary Groin 06/01/18 23:30 Urine Culture - Final Urine,Clean Catch 06/01/18 21:52 Blood Culture - Preliminary Blood No Growth after 24 hours Assessment and Plan Assessment: Sepsis secondary to right groin abscess. Status post I&D Leukocytosis improved Hypokalemia. Altered mental status possible medication reaction. Improved now Diabetes type 2 Hypothyroidism Coronary artery disease with history of stent placement History of [place] History of right hip surgery and revision 6 with postoperative infection Depression Patient is on anticoagulation. Exact etiology unknown. Plan: Patient will be continued on antibiotics in the form of vancomycin. Gentle hydration. Continue the home medications. Will hold hydrochlorothiazide due to hyperkalemia. Anticoagulation has been restarted after incision and drainage. Follow-up culture reports. Further recommendations based on the clinical course. Prognosis is guarded with multiple medical problems and comorbid conditions. Time with Patient: Greater than 30
[2018-06-04] MEDS: HYDROmorphone 1 MG/ML 1 ML SYRINGE IVP PRN ×3 (06:04→23:01)
[2018-06-04] MEDS: LEVOTHYROXINE 75 MCG TAB PO SCH (06:05)
--- NOTE | 2018-06-04 06:53 | CONS ---
CONSULTATION DATE OF SERVICE: 06/03/2018 REASON FOR CONSULTATION: Right groin abscess. HISTORY OF PRESENT ILLNESS: The patient is a 78-year-old female who apparently developed the abscess in her right groin area that started with small area of irritation and that has gradually increased in size, that has been more painful. Pain has been mostly dull aching to sharp 4 to 5 out of 10 no radiation with no nausea, vomiting or high- grade fever. With these symptoms, the patient was evaluated by her primary care physician and the patient did have drainage of this abscess done in the office setting. She was given a dose of clindamycin; however, afterwards at home the patient was noted to be more confused and disoriented by the family and febrile. The patient came to the ER. The patient was evaluated by the ER physician. On admission, the patient has been afebrile. She did have elevated white count of 18,000. Creatinine was normal. UA was mildly positive. Patient did have a CT abdomen and pelvis which did show slight fullness in the right hip musculature. The patient has been taken to the OR, status post drainage of the right groin abscess. Cultures had been obtained. She was started on vancomycin. Infectious Disease was consulted for further recommendation regarding antibiotic therapy. REVIEW OF SYSTEMS: Positive points have been mentioned in HPI. Rest of 14 systems has been negative. PAST MEDICAL HISTORY: Diabetes mellitus, hypertension, osteoarthritis, pneumonia, hypothyroidism. PAST SURGICAL HISTORY: Appendectomy, hysterectomy, right hip replacement. SOCIAL HISTORY: No history of smoking, drinking, or drug use. FAMILY HISTORY: Father history of hypertension and brain tumor. Mother history of cancer. ALLERGIES: Allergies to LIPITOR, AZITHROMYCIN, CODEINE, FLUTICASONE,, DYAZIDE, LINCOMYCIN, MEPERIDINE. MEDICATION: Tylenol, aspirin, Colace, Pepcid, Neurontin, Dilaudid, Synthroid, Cozaar, Theragran, Narcan, Zofran, Pravachol, Xarelto, Betapace, vancomycin. PHYSICAL EXAMINATION: On examination, blood pressure is 136/71 with a pulse of 70, temperature 96.2. She is 97% on room air. General description is an elderly female, lying in bed in no distress. No tachypnea or accessory muscle of respiration use. HEENT examination shows slight pallor, no scleral icterus. Oral mucous membrane is dry. No pharyngeal erythema or thrush. NECK: Trachea central, no thyromegaly. LUNGS: Unlabored breathing, clear to auscultation anteriorly. HEART: S1, S2. Regular rate and rhythm. ABDOMEN: Soft, no tenderness. No guarding or rigidity. Right groin wound is currently dressed with some blood-stained drainage on the dressing. EXTREMITIES: No edema of the feet. SKIN EXAMINATION: No rash or mass palpable. NEUROLOGICAL: The patient is awake, alert, oriented x3. Mood and affect normal. LABS: Hemoglobin is 10.3, white count of 18.2 with a BUN of 19 creatinine 0.79. UA was slightly positive. The blood and urine cultures so far pending. The right groin cultures are pending as well. DIAGNOSTIC IMPRESSION AND PLAN: Patient with right groin abscess, status post surgical drainage in the outpatient setting initially by the primary care physician and status post OR drainage by Dr. Sweet likely secondary to methicillin-resistant Staphylococcus aureus with the same organism that had been growing in the cultures that were done in the outpatient setting. PLAN: 1. Vancomycin pharmacy to dose, target trough to 15, while watching her kidney function closely. 2. Depending upon clinical response as well as cultures will adjust her medications further if needed. Thank you for this consultation. Will follow this patient along with you. MMODL / IJN: [id number] / DARA
[2018-06-04] MEDS: VANCOMYCIN 1,500 MG in SODIUM CHLORIDE 0.9% 250 ML IVPB SCH ×2 (08:04→23:53)
[2018-06-04] MEDS: SODIUM CHLORIDE 0.9% 1,000 ML IV SCH (08:04)
[2018-06-04] MEDS: TICAGRELOR 90 MG TAB PO SCH ×2 (08:06→20:46)
[2018-06-04] MEDS: VORTIOXETINE HYDROBROMIDE 10 MG TABLET PO SCH (08:06)
[2018-06-04] MEDS: SOTALOL 80 MG TAB PO SCH ×2 (08:06→20:46)
[2018-06-04] MEDS: ASPIRIN 81 MG PO SCH (08:09)
[2018-06-04] MEDS: LOSARTAN 50 MG TAB PO SCH (08:09)
[2018-06-04] MEDS: MULTIVITAMINS, THERA 1 EACH TAB PO SCH (08:09)
[2018-06-04] MEDS: FAMOTIDINE 20 MG TAB PO SCH ×2 (08:09→20:45)
[2018-06-04] MEDS: Mirabegron [Myrbetriq] 25 MG PO SCH (08:09)
[2018-06-04] MEDS: DOCUSATE 100 MG CAP PO SCH (08:09)
[2018-06-04 11:17] LABS: HCT 25.8 % (34.0-46.0); Hypochromasia Marked; MCHC 30.7 g/dL (31.0-37.0); MCV 84.6 fL (80.0-100.0); Mean Platelet Volume 8.4; Platelet Count 261 k/uL (150-450); RBC 3.04 m/uL (3.80-5.40); RDW 14.8 % (11.5-15.5); WBC 7.6 k/uL (3.8-10.6)
[2018-06-04 11:19] LABS: HGB 7.9 gm/dL (11.4-16.0)
--- NOTE | 2018-06-04 11:37 | P.PN ---
Subjective Progress Note Date: 06/04/18 78-year-old female admitted to the hospital for right groin abscess. Patient underwent I&D yesterday by Dr. Sweet. Wound cultures are in progress. Cultures are negative at the 48 hour aramis. Patient complains of pain to right groin and is very tender to palpation. Patient tolerating oral intake. She denies nausea or vomiting. Hemoglobin 7.9. White count 7.6. Vital signs are stable. She is afebrile. PHYSICAL EXAM: GENERAL: This is a 78-year-old female in no apparent distress at the time of examination. Pleasant and cooperative. RESPIRATORY: Clear to auscultation. Equal expansion. CARDIOVASCULAR: Regular rate and rhythm. S1 and S2 noted. GASTROINTESTINAL: Soft and round. No distention noted. INTEGUMENTARY: Dressing to right groin clean dry and intact. Very tender to minimal palpation. No cyanosis. No jaundice. No rashes noted. EXTREMITIES: 2+ peripheral pulses. No evidence of peripheral edema. NEUROLOGIC: Cranial nerves II-XII grossly intact. PSYCHIATRIC: Awake, alert, and oriented X 3. Appropriate affect. Intact judgement and insight. ASSESSMENT: Right groin abscess, S/P I&D 06/03/18 S/P I&D at PCP, culture performed 06/01/18 positive for MRSA Sepsis, present on admission, secondary to abscess Diverticulosis without evidence of diverticulitis Diabetes mellitus, type II Coronary artery disease, on long-term anticoagulation with Xarelto PLAN: Continue wet-to-dry dressings daily to right groin. Continue antibiotics. Infectious disease is on consult. Anticoagulation has been restarted. Stable from a surgical perspective. Discharge per medicine. Nurse practitioner note has been reviewed by physician. Signing provider agrees with the documented findings, assessment, and plan of care. Objective - Vital Signs Vital signs: Vital Signs Temp 97.7 F 06/04/18 06:16 Pulse 69 06/04/18 06:16 Resp 18 06/04/18 08:00 BP 136/63 06/04/18 06:16 Pulse Ox 97 06/04/18 06:16 Intake & Output 06/03/18 06/04/18 06/04/18 18:59 06:59 18:59 Intake Total 400 Output Total 10 Balance 390 Intake: IV 400 Output: Estimated Blood Loss 10 Other: Voiding Method Toilet Toilet # Voids 2 2 - Labs CBC & Chem 7: 06/04/18 10:40 06/03/18 08:53 Labs: Abnormal Lab Results - Last 24 Hours (Table) 06/03/18 06/03/18 06/04/18 Range/Units 12:35 13:39 10:40 RBC 3.04 L (3.80-5.40) m/uL Hgb 7.9 L D (11.4-16.0) gm/dL Hct 25.8 L (34.0-46.0) % MCHC 30.7 L (31.0-37.0) g/dL POC Glucose (mg/dL) 146 H 135 H (75-99) mg/dL Microbiology - Last 24 Hours (Table) 06/01/18 21:52 Blood Culture - Preliminary Blood No Growth after 48 hours 06/03/18 12:50 Anaerobic Culture - Preliminary Groin 06/03/18 12:50 Wound Culture - Preliminary Groin 06/01/18 23:30 Urine Culture - Final Urine,Clean Catch
[2018-06-04] MEDS: RIVAROXABAN 15 MG TAB PO SCH (17:21)
[2018-06-04] MEDS: GABAPENTIN 300 MG CAP PO SCH (20:45)
[2018-06-04] MEDS: PRAVASTATIN SODIUM 80 MG TAB PO SCH (20:46)
--- NOTE | 2018-06-04 22:22 | P.PN ---
Subjective Progress Note Date: 06/04/18 Principal diagnosis: Right groin abscess and surrounding cellulitis Patient is a 78-year-old female with known history of hypertension, diabetes type 2, history of ID, hypothyroidism and history of cardiac Stent placement, coronary artery disease and is currently on anticoagulation with xarelto was brought to ER to be evaluated because she was confused and disoriented. This came on tonight just after the patient had incision and drainage of an abscess that is located in the right groin area. This was performed at her primary care doctor's office, and following the procedure she had been given a dose of clindamycin. After the procedure, the patient was not acting appropriately. The patient's son called the clinic and they were directed to come to the emergency department. The patient does report that the abscess had been there probably for about 2 weeks. Patient is currently more oriented now. Patient does have right groin pain. No complaints of chest pain or shortness of breath. No nausea vomiting or diarrhea. Patient does have subjective fever or chills. She was denying systemic symptoms, including no chest pain, palpitations, or dyspnea. CT abdomen and pelvis showed right hip arthroplasty. 12 mm indeterminate left adrenal nodule is completely characterized on this exam. Nonspecific edema within right hip musculature. Diverticulosis without evidence of diverticulitis Mildly prominent bilateral inguinal lymph nodes of uncertain etiology or significance. 06/03/2018 Patient is status post right groin incision and drainage. Complaining of right groin pain and a dose of IV Dilaudid was given. Denied any complaints of chest pain or shortness of breath. No fever no chills. Leukocytosis is trending down. Follow-up final wound culture report. ID will be consulted. Urine cultures showed greater than 100,000 normal skin dimitrios. Discussed with the family at bedside in detail 06/04/2018 Right groin pain is much improved today. No fever no chills. Wound cultures are still pending. Encourage ambulation and PT OT. General surgery is on board. No chest pain or shortness of breath. No other acute overnight issues. Current medications reviewed. Objective - Vital Signs Vital signs: Vital Signs Temp 98.9 F 06/04/18 15:00 Pulse 70 06/04/18 15:00 Resp 18 06/04/18 16:00 BP 126/63 06/04/18 15:00 Pulse Ox 94 L 06/04/18 15:00 Intake & Output 06/04/18 06/04/18 06/05/18 06:59 18:59 06:59 Other: Voiding Method Toilet # Voids 2 3 - Exam PHYSICAL EXAMINATION: Patient is lying in the bed comfortably, no acute distress, awake alert and oriented.. HEENT: Normocephalic. Neck is supple. Pupils reactive. Nostrils clear. Oral cavity is moist. Ears reveal no drainage. Neck reveals no JVD, carotid bruits, or thyromegaly. CHEST EXAMINATION: Trachea is central. Symmetrical expansion. Lung keen clear to auscultation and percussion. CARDIAC: Normal S1, S2 with no gallops. No murmurs ABDOMEN: Soft. Bowel sounds normal. No organomegaly. No abdominal bruits. Extremities: reveal no edema. No clubbing or cyanosis. Right groin wound is packed at this time. Neurologically awake, alert, oriented x3 with well-coordinated movements. No focal deficits noted Skin: No rash or skin lesions. Psychiatric: Coperative. Nonsuicidal. Anxious Musculoskeletal: No joint swelling or deformity. Normal range of motion. - Labs CBC & Chem 7: 06/04/18 10:40 06/03/18 08:53 Labs: Abnormal Lab Results - Last 24 Hours (Table) 06/04/18 Range/Units 10:40 RBC 3.04 L (3.80-5.40) m/uL Hgb 7.9 L D (11.4-16.0) gm/dL Hct 25.8 L (34.0-46.0) % MCHC 30.7 L (31.0-37.0) g/dL Microbiology - Last 24 Hours (Table) 06/03/18 12:50 Gram Stain - Preliminary Groin Wound Culture - Preliminary Presumptive MRSA 06/01/18 21:52 Blood Culture - Preliminary Blood No Growth after 48 hours 06/03/18 12:50 Anaerobic Culture - Preliminary Groin Assessment and Plan Assessment: Sepsis secondary to right groin abscess. Status post I&D Leukocytosis improved Hypokalemia. Altered mental status possible medication reaction. Improved now Diabetes type 2 Hypothyroidism Coronary artery disease with history of stent placement History of ID History of right hip surgery and revision 6 with postoperative infection Depression Patient is on anticoagulation. Exact etiology unknown. Plan: Patient will be continued on antibiotics in the form of vancomycin. Gentle hydration. Continue the home medications. Will hold hydrochlorothiazide due to hyperkalemia. Anticoagulation has been restarted after incision and drainage. Follow-up culture reports. Further recommendations based on the clinical course. Prognosis is guarded with multiple medical problems and comorbid conditions.
[2018-06-04] MEDS ORDERED: VANCOMYCIN TROUGH DUE 1 EACH MISC MISCELLANE ONE (23:00)
--- NOTE | 2018-06-05 02:29 | PN ---
PROGRESS NOTE DATE OF SERVICE: 06/04/2018 REASON FOR FOLLOWUP: Right groin abscess, MRSA. INTERVAL HISTORY: The patient is afebrile. She is breathing comfortably. Denies having any chest pain or shortness of breath. Occasional cough. Overall pain to the right groin is currently controlled with pain medication. No diarrhea. PHYSICAL EXAMINATION: Blood pressure 126/63 with a pulse of 70, temperature of 98.9, she is 94% on room air. GENERAL DESCRIPTION: An elderly female lying in bed in no distress. RESPIRATORY SYSTEM: Unlabored breathing. Clear to auscultation anteriorly. HEART: S1, S2. Regular rate and rhythm. ABDOMEN: Soft. Right groin wound is currently packed, some blood-stained drainage. LABS: White count of 7.6, BUN of 19, creatinine 0.78. Blood culture has been negative. Right groin abscess culture with MRSA. DIAGNOSTIC IMPRESSION AND PLAN: Patient with right groin number methicillin-resistant Staphylococcus aureus abscess status post drainage. Patient at this time to continue with vancomycin pharmacy to dose while watching the kidney function closely, however, we'll be able to finish therapy with oral antibiotics continue with supportive care. MMODL / IJN: [id number] / MTDD
[2018-06-05] MEDS: HYDROmorphone 1 MG/ML 1 ML SYRINGE IVP PRN ×2 (05:42→16:43)
[2018-06-05] MEDS: LEVOTHYROXINE 75 MCG TAB PO SCH (05:42)
[2018-06-05] MEDS: SODIUM CHLORIDE 0.9% 1,000 ML IV SCH (08:36)
[2018-06-05] MEDS: Mirabegron [Myrbetriq] 25 MG PO SCH (08:37)
[2018-06-05] MEDS: LOSARTAN 50 MG TAB PO SCH (08:37)
[2018-06-05] MEDS: DOCUSATE 100 MG CAP PO SCH (08:37)
[2018-06-05] MEDS: FAMOTIDINE 20 MG TAB PO SCH ×2 (08:37→20:54)
[2018-06-05] MEDS: ASPIRIN 81 MG PO SCH (08:37)
[2018-06-05] MEDS: SOTALOL 80 MG TAB PO SCH ×2 (08:38→20:54)
[2018-06-05] MEDS: TICAGRELOR 90 MG TAB PO SCH ×2 (08:38→20:54)
[2018-06-05] MEDS: VORTIOXETINE HYDROBROMIDE 10 MG TABLET PO SCH (08:39)
[2018-06-05 08:43] LABS: Anion Gap 4 mmol/L; Blood Urea Nitrogen 15 mg/dL (7-17); Calcium 9.1 mg/dL (8.4-10.2); Carbon Dioxide 26 mmol/L (22-30); Chloride 109 mmol/L (98-107); Glucose 132 mg/dL (74-99); Potassium 3.5 mmol/L (3.5-5.1); Sodium 139 mmol/L (137-145)
[2018-06-05 09:49] LABS: Basophils % (A) 1 %; Eosinophils # (A) 0.1 k/uL (0-0.7); Eosinophils % (A) 2 %; HCT 26.3 % (34.0-46.0); HGB 8.1 gm/dL (11.4-16.0); Hypochromasia Marked; Lymphocytes # (A) 0.7 k/uL (1.0-4.8); Lymphocytes % (A) 13 %; MCH 25.8 pg (25.0-35.0); MCHC 30.7 g/dL (31.0-37.0); MCV 83.9 fL (80.0-100.0); Mean Platelet Volume 7.9; Monocytes # (A) 0.4 k/uL (0-1.0); Monocytes % (A) 8 %; Neutrophils # (A) 4.2 k/uL (1.3-7.7); Neutrophils % (A) 75 %; Platelet Count 296 k/uL (150-450); RBC 3.13 m/uL (3.80-5.40); RDW 14.3 % (11.5-15.5); WBC 5.6 k/uL (3.8-10.6)
[2018-06-05] MEDS: MULTIVITAMINS, THERA 1 EACH TAB PO SCH (12:08)
--- NOTE | 2018-06-05 13:27 | P.PN ---
Subjective Progress Note Date: 06/05/18 CHIEF COMPLAINT: Status post right groin incision and drainage HISTORY OF PRESENT ILLNESS: The patient is a 78-year-old female status post incision and drainage of the right groin on 06/03/2018. Cultures are back MRSA. Family is at bedside. She is very sore along the right groin as to be expected. Separately she has history of multiple right hip replacements. Both her daughter and son are at bedside. She just had a dressing change today. She is tolerating diet. Family 's encouraging her to eat her heart healthy diet. PHYSICAL EXAMINATION: GENERAL: Well developed and in no acute distress. Pleasant. HEENT: No sclera icterus. Extraocular movements grossly intact. Moist buccal mucosa. Head is atraumatic, normocephalic. Hears conversational speech. No nasal drainage. NECK: Supple without lymphadenopathy. No JV distention. CHEST: Non-labored respirations and equal bilateral excursions. CARDIOVASCULAR: Regular rate and rhythm. Palpable 2+ radial pulses. ABDOMEN: Soft and nondistended. MUSCULOSKELETAL: No clubbing, cyanosis. Skin hypersensitivity along the right groin. Dressing clean dry and intact. Images of the right debridement of groin reviewed on patient's son cell phone with beefy-red tissue NEUROLOGIC: No focal or lateralizing signs. PSYCH: Appropriate affect. Alert and oriented to person, place and time. SKIN: Well perfused. Good skin turgor. LABS: Reviewed ASSESSMENT: 1. Right groin abscess with MRSA PLAN: 1. Continue heart healthy diet. 2. Nutrition augmentation advised for optimal wound healing. 3. Medical management with anticoagulation 4. Wound care management per infectious disease. 5. May benefit from multivitamin without vitamin K Objective - Vital Signs Vital signs: Vital Signs Temp 98.1 F 06/05/18 07:00 Pulse 71 06/05/18 07:00 Resp 16 06/05/18 07:00 BP 156/73 06/05/18 07:00 Pulse Ox 95 06/05/18 07:00 Intake & Output 06/04/18 06/05/18 06/05/18 18:59 06:59 18:59 Intake Total 500 Balance 500 Intake: Oral 500 Other: Voiding Method Toilet Bedpan Incontinent # Voids 3 2 - Labs CBC & Chem 7: 06/05/18 08:11 06/05/18 08:11 Labs: Abnormal Lab Results - Last 24 Hours (Table) 06/05/18 06/05/18 Range/Units 08:11 08:11 RBC 3.13 L (3.80-5.40) m/uL Hgb 8.1 L (11.4-16.0) gm/dL Hct 26.3 L (34.0-46.0) % MCHC 30.7 L (31.0-37.0) g/dL Lymphocytes # 0.7 L (1.0-4.8) k/uL Chloride 109 H (98-107) mmol/L Glucose 132 H (74-99) mg/dL Microbiology - Last 24 Hours (Table) 06/03/18 12:50 Gram Stain - Final Groin Wound Culture - Final Methicillin resist S. aureus 06/01/18 21:52 Blood Culture - Preliminary Blood No Growth after 72 hours Assessment and Plan (1) Morbid obesity due to excess calories Current Visit: Yes Status: Acute Code(s): E66.01 - MORBID (SEVERE) OBESITY DUE TO EXCESS CALORIES SNOMED Code(s): 451877054 (2) Morbid obesity with BMI of 40.0-44.9, adult Current Visit: Yes Status: Acute Code(s): E66.01 - MORBID (SEVERE) OBESITY DUE TO EXCESS CALORIES; Z68.41 - BODY MASS INDEX (BMI) 40.0-44.9, ADULT SNOMED Code(s): 670178316 (3) Ischemic cardiomyopathy Current Visit: Yes Status: Acute Code(s): I25.5 - ISCHEMIC CARDIOMYOPATHY SNOMED Code(s): 789898063 (4) Hypothyroidism Current Visit: Yes Status: Acute Code(s): E03.9 - HYPOTHYROIDISM, UNSPECIFIED SNOMED Code(s): 43101781 (5) Hyperlipidemia Current Visit: Yes Status: Acute Code(s): E78.5 - HYPERLIPIDEMIA, UNSPECIFIED SNOMED Code(s): 79615515 (6) Abscess of right groin Current Visit: Yes Status: Acute Code(s): L02.214 - CUTANEOUS ABSCESS OF GROIN SNOMED Code(s): 56108197 (7) Anticoagulant long-term use Current Visit: Yes Status: Acute Code(s): Z79.01 - [employer] (CURRENT) USE OF ANTICOAGULANTS SNOMED Code(s): 384596872 (8) Debilitated patient Current Visit: Yes Status: Acute Code(s): R53.81 - OTHER MALAISE SNOMED Code(s): 52058604
[2018-06-05] MEDS: VANCOMYCIN 1,500 MG in SODIUM CHLORIDE 0.9% 250 ML IVPB SCH (16:10)
[2018-06-05] MEDS: RIVAROXABAN 15 MG TAB PO SCH (17:06)
[2018-06-05] MEDS: PRAVASTATIN SODIUM 80 MG TAB PO SCH (20:54)
[2018-06-05] MEDS: GABAPENTIN 300 MG CAP PO SCH (20:54)
--- NOTE | 2018-06-05 21:49 | P.PN ---
Subjective Progress Note Date: 06/05/18 Principal diagnosis: Right groin abscess and surrounding cellulitis Patient is a 78-year-old female with known history of hypertension, diabetes type 2, history of VA, hypothyroidism and history of cardiac Stent placement, coronary artery disease and is currently on anticoagulation with xarelto was brought to ER to be evaluated because she was confused and disoriented. This came on tonight just after the patient had incision and drainage of an abscess that is located in the right groin area. This was performed at her primary care doctor's office, and following the procedure she had been given a dose of clindamycin. After the procedure, the patient was not acting appropriately. The patient's son called the clinic and they were directed to come to the emergency department. The patient does report that the abscess had been there probably for about 2 weeks. Patient is currently more oriented now. Patient does have right groin pain. No complaints of chest pain or shortness of breath. No nausea vomiting or diarrhea. Patient does have subjective fever or chills. She was denying systemic symptoms, including no chest pain, palpitations, or dyspnea. CT abdomen and pelvis showed right hip arthroplasty. 12 mm indeterminate left adrenal nodule is completely characterized on this exam. Nonspecific edema within right hip musculature. Diverticulosis without evidence of diverticulitis Mildly prominent bilateral inguinal lymph nodes of uncertain etiology or significance. 06/03/2018 Patient is status post right groin incision and drainage. Complaining of right groin pain and a dose of IV Dilaudid was given. Denied any complaints of chest pain or shortness of breath. No fever no chills. Leukocytosis is trending down. Follow-up final wound culture report. ID will be consulted. Urine cultures showed greater than 100,000 normal skin dimitrios. Discussed with the family at bedside in detail 06/04/2018 Right groin pain is much improved today. No fever no chills. Wound cultures are still pending. Encourage ambulation and PT OT. General surgery is on board. No chest pain or shortness of breath. No other acute overnight issues. 06/05/2018 Patient denied any complaints of chest pain or shortness of breath. Right groin pain is improved. Patient did have dressing change and wound is packed again. Otherwise wound cultures grew MRSA. Patient is being continued on vancomycin. No other acute overnight issues. Discussed with the family in detail at bedside. Current medications reviewed. Objective - Vital Signs Vital signs: Vital Signs Temp 98.1 F 06/05/18 07:00 Pulse 71 06/05/18 07:00 Resp 16 06/05/18 07:00 BP 156/73 06/05/18 07:00 Pulse Ox 95 06/05/18 07:00 Intake & Output 06/04/18 06/05/18 06/05/18 18:59 06:59 18:59 Intake Total 500 Balance 500 Intake: Oral 500 Other: Voiding Method Toilet Bedpan Incontinent # Voids 3 2 - Exam PHYSICAL EXAMINATION: Patient is lying in the bed comfortably, no acute distress, awake alert and oriented.. HEENT: Normocephalic. Neck is supple. Pupils reactive. Nostrils clear. Oral cavity is moist. Ears reveal no drainage. Neck reveals no JVD, carotid bruits, or thyromegaly. CHEST EXAMINATION: Trachea is central. Symmetrical expansion. Lung keen clear to auscultation and percussion. CARDIAC: Normal S1, S2 with no gallops. No murmurs ABDOMEN: Soft. Bowel sounds normal. No organomegaly. No abdominal bruits. Extremities: reveal no edema. No clubbing or cyanosis. Right groin wound is packed at this time. Neurologically awake, alert, oriented x3 with well-coordinated movements. No focal deficits noted Skin: No rash or skin lesions. Psychiatric: Coperative. Nonsuicidal. Anxious Musculoskeletal: No joint swelling or deformity. Normal range of motion. - Labs CBC & Chem 7: 06/05/18 08:11 06/05/18 08:11 Labs: Abnormal Lab Results - Last 24 Hours (Table) 06/05/18 06/05/18 Range/Units 08:11 08:11 RBC 3.13 L (3.80-5.40) m/uL Hgb 8.1 L (11.4-16.0) gm/dL Hct 26.3 L (34.0-46.0) % MCHC 30.7 L (31.0-37.0) g/dL Lymphocytes # 0.7 L (1.0-4.8) k/uL Chloride 109 H (98-107) mmol/L Glucose 132 H (74-99) mg/dL Microbiology - Last 24 Hours (Table) 06/03/18 12:50 Gram Stain - Final Groin Wound Culture - Final Methicillin resist S. aureus 06/01/18 21:52 Blood Culture - Preliminary Blood No Growth after 72 hours Assessment and Plan Assessment: Sepsis secondary to right groin abscess. Status post I&D. Wound cultures grew MRSA Leukocytosis improved Hypokalemia. Altered mental status possible medication reaction. Improved now Diabetes type 2 Hypothyroidism Coronary artery disease with history of stent placement History of VA History of right hip surgery and revision 6 with postoperative infection Depression Patient is on anticoagulation. Exact etiology unknown. Plan: Patient will be continued on antibiotics in the form of vancomycin. Gentle hydration. Continue the home medications. Will hold hydrochlorothiazide due to hypokalemia. Anticoagulation has been restarted after incision and drainage. Follow-up culture reports. Further recommendations based on the clinical course. Prognosis is guarded with multiple medical problems and comorbid conditions.
[2018-06-06] MEDS: LEVOTHYROXINE 75 MCG TAB PO SCH (05:59)
[2018-06-06] MEDS: SODIUM CHLORIDE 0.9% 1,000 ML IV SCH (08:30)
[2018-06-06] MEDS: FAMOTIDINE 20 MG TAB PO SCH ×2 (08:31→20:55)
[2018-06-06] MEDS: DOCUSATE 100 MG CAP PO SCH (08:31)
[2018-06-06] MEDS: ASPIRIN 81 MG PO SCH (08:31)
[2018-06-06] MEDS: LOSARTAN 50 MG TAB PO SCH (08:31)
[2018-06-06] MEDS: VANCOMYCIN 1,500 MG in SODIUM CHLORIDE 0.9% 250 ML IVPB SCH (08:31)
[2018-06-06] MEDS: TICAGRELOR 90 MG TAB PO SCH ×2 (08:32→20:56)
[2018-06-06] MEDS: SOTALOL 80 MG TAB PO SCH ×2 (08:32→20:56)
[2018-06-06] MEDS: Mirabegron [Myrbetriq] 25 MG PO SCH (08:32)
[2018-06-06] MEDS: VORTIOXETINE HYDROBROMIDE 10 MG TABLET PO SCH (08:33)
--- NOTE | 2018-06-06 12:48 | P.PN ---
Subjective Progress Note Date: 06/06/18 CHIEF COMPLAINT: Status post right groin incision and drainage HISTORY OF PRESENT ILLNESS: The patient is a 78-year-old female status post incision and drainage of the right groin on 06/03/2018. She is postop day 3. Cultures are back MRSA. Her son is at bedside. Pain is more controlled today than yesterday. No new concerns today. They're pending discharge per recommendations of infectious disease. PHYSICAL EXAMINATION: GENERAL: Well developed and in no acute distress. Pleasant. HEENT: No sclera icterus. Extraocular movements grossly intact. Moist buccal mucosa. Head is atraumatic, normocephalic. Hears conversational speech. No nasal drainage. NECK: Supple without lymphadenopathy. No JV distention. CHEST: Non-labored respirations and equal bilateral excursions. CARDIOVASCULAR: Regular rate and rhythm. Palpable 2+ radial pulses. ABDOMEN: Soft and nondistended. MUSCULOSKELETAL: No clubbing, cyanosis. Dressing clean dry and intact right groin. NEUROLOGIC: No focal or lateralizing signs. PSYCH: Appropriate affect. Alert and oriented to person, place and time. SKIN: Well perfused. Good skin turgor. LABS: Reviewed ASSESSMENT: 1. Right groin abscess with MRSA PLAN: 1. Recommendations per infectious disease regarding wound care management. 2. Patient is clear from a surgical standpoint for discharge once medically cleared with follow-up at the wound care center Objective - Vital Signs Vital signs: Vital Signs Temp 98.0 F 06/06/18 07:00 Pulse 74 06/06/18 07:00 Resp 18 06/06/18 07:00 BP 165/64 06/06/18 07:00 Pulse Ox 96 06/06/18 07:00 Intake & Output 06/05/18 06/06/18 06/06/18 18:59 06:59 18:59 Intake Total 650 Output Total 400 350 Balance -400 300 Weight 96 kg Intake: Oral 650 Output: Urine 400 350 Other: Voiding Method Diaper Diaper Diaper Incontinent Incontinent Incontinent # Bowel Movements 0 1 - Labs CBC & Chem 7: 06/05/18 08:11 06/05/18 08:11 Labs: Microbiology - Last 24 Hours (Table) 06/01/18 21:52 Blood Culture - Preliminary Blood No Growth after 96 hours 06/03/18 12:50 Anaerobic Culture - Preliminary Groin 06/03/18 12:50 Gram Stain - Final Groin Wound Culture - Final Methicillin resist S. aureus Assessment and Plan (1) Morbid obesity due to excess calories Current Visit: Yes Status: Acute Code(s): E66.01 - MORBID (SEVERE) OBESITY DUE TO EXCESS CALORIES SNOMED Code(s): 150369282 (2) Morbid obesity with BMI of 40.0-44.9, adult Current Visit: Yes Status: Acute Code(s): E66.01 - MORBID (SEVERE) OBESITY DUE TO EXCESS CALORIES; Z68.41 - BODY MASS INDEX (BMI) 40.0-44.9, ADULT SNOMED Code(s): 900168322 (3) Ischemic cardiomyopathy Current Visit: Yes Status: Acute Code(s): I25.5 - ISCHEMIC CARDIOMYOPATHY SNOMED Code(s): 065413440 (4) Hypothyroidism Current Visit: Yes Status: Acute Code(s): E03.9 - HYPOTHYROIDISM, UNSPECIFIED SNOMED Code(s): 94186338 (5) Hyperlipidemia Current Visit: Yes Status: Acute Code(s): E78.5 - HYPERLIPIDEMIA, UNSPECIFIED SNOMED Code(s): 60333666 (6) Abscess of right groin Current Visit: Yes Status: Acute Code(s): L02.214 - CUTANEOUS ABSCESS OF GROIN SNOMED Code(s): 19550288 (7) Anticoagulant long-term use Current Visit: Yes Status: Acute Code(s): Z79.01 - SENIOR CARE (CURRENT) USE OF ANTICOAGULANTS SNOMED Code(s): 133612684 (8) Debilitated patient Current Visit: Yes Status: Acute Code(s): R53.81 - OTHER MALAISE SNOMED Code(s): 53337636
[2018-06-06] MEDS: MULTIVITAMINS, THERA 1 EACH TAB PO SCH (12:57)
[2018-06-06] MEDS: RIVAROXABAN 15 MG TAB PO SCH (17:31)
[2018-06-06] MEDS: HYDROmorphone 1 MG/ML 1 ML SYRINGE IVP PRN (18:45)
--- NOTE | 2018-06-06 20:52 | P.PN ---
Subjective Progress Note Date: 06/06/18 Principal diagnosis: Right groin abscess and surrounding cellulitis Patient is a 78-year-old female with known history of hypertension, diabetes type 2, history of [place], hypothyroidism and history of cardiac Stent placement, coronary artery disease and is currently on anticoagulation with xarelto was brought to ER to be evaluated because she was confused and disoriented. This came on tonight just after the patient had incision and drainage of an abscess that is located in the right groin area. This was performed at her primary care doctor's office, and following the procedure she had been given a dose of clindamycin. After the procedure, the patient was not acting appropriately. The patient's son called the clinic and they were directed to come to the emergency department. The patient does report that the abscess had been there probably for about 2 weeks. Patient is currently more oriented now. Patient does have right groin pain. No complaints of chest pain or shortness of breath. No nausea vomiting or diarrhea. Patient does have subjective fever or chills. She was denying systemic symptoms, including no chest pain, palpitations, or dyspnea. CT abdomen and pelvis showed right hip arthroplasty. 12 mm indeterminate left adrenal nodule is completely characterized on this exam. Nonspecific edema within right hip musculature. Diverticulosis without evidence of diverticulitis Mildly prominent bilateral inguinal lymph nodes of uncertain etiology or significance. 06/03/2018 Patient is status post right groin incision and drainage. Complaining of right groin pain and a dose of IV Dilaudid was given. Denied any complaints of chest pain or shortness of breath. No fever no chills. Leukocytosis is trending down. Follow-up final wound culture report. ID will be consulted. Urine cultures showed greater than 100,000 normal skin dimitrios. Discussed with the family at bedside in detail 06/04/2018 Right groin pain is much improved today. No fever no chills. Wound cultures are still pending. Encourage ambulation and PT OT. General surgery is on board. No chest pain or shortness of breath. No other acute overnight issues. 06/05/2018 Patient denied any complaints of chest pain or shortness of breath. Right groin pain is improved. Patient did have dressing change and wound is packed again. Otherwise wound cultures grew MRSA. Patient is being continued on vancomycin. No other acute overnight issues. Discussed with the family in detail at bedside. 06/06/2018 Patient did improve symptomatically and is able to sit in the chair today. Patient presented on PTOT and final recommendations from ID is pending at this time. Continue with vancomycin now. Anticipate discharge with final ID recommendations. Current medications reviewed. Objective - Vital Signs Vital signs: Vital Signs Temp 98.7 F 06/06/18 15:00 Pulse 67 06/06/18 15:00 Resp 20 06/06/18 15:00 BP 160/65 06/06/18 15:00 Pulse Ox 97 06/06/18 15:00 Intake & Output 06/06/18 06/06/18 06/07/18 06:59 18:59 06:59 Intake Total 650 200 Output Total 350 600 Balance 300 -400 Weight 96 kg Intake: Oral 650 200 Output: Urine 350 600 Other: Voiding Method Diaper Bedside Commode Incontinent Incontinent # Voids 2 # Bowel Movements 0 1 - Exam PHYSICAL EXAMINATION: Patient is lying in the bed comfortably, no acute distress, awake alert and oriented.. HEENT: Normocephalic. Neck is supple. Pupils reactive. Nostrils clear. Oral cavity is moist. Ears reveal no drainage. Neck reveals no JVD, carotid bruits, or thyromegaly. CHEST EXAMINATION: Trachea is central. Symmetrical expansion. Lung keen clear to auscultation and percussion. CARDIAC: Normal S1, S2 with no gallops. No murmurs ABDOMEN: Soft. Bowel sounds normal. No organomegaly. No abdominal bruits. Extremities: reveal no edema. No clubbing or cyanosis. Right groin wound is packed at this time. Neurologically awake, alert, oriented x3 with well-coordinated movements. No focal deficits noted Skin: No rash or skin lesions. Psychiatric: Coperative. Nonsuicidal. Anxious Musculoskeletal: No joint swelling or deformity. Normal range of motion. - Labs CBC & Chem 7: 06/05/18 08:11 06/05/18 08:11 Labs: Microbiology - Last 24 Hours (Table) 06/01/18 21:52 Blood Culture - Preliminary Blood No Growth after 96 hours 06/03/18 12:50 Anaerobic Culture - Preliminary Groin Assessment and Plan Assessment: Sepsis secondary to right groin abscess. Status post I&D. Wound cultures grew MRSA Leukocytosis improved Hypokalemia. Altered mental status possible medication reaction. Improved now Diabetes type 2 Hypothyroidism Coronary artery disease with history of stent placement History of MA History of right hip surgery and revision 6 with postoperative infection Depression Patient is on anticoagulation. Exact etiology unknown. Plan: Patient will be continued on antibiotics in the form of vancomycin. Gentle hydration. Continue the home medications. Will hold hydrochlorothiazide due to hypokalemia. Anticoagulation has been restarted after incision and drainage. Follow-up culture reports. Further recommendations based on the clinical course. Prognosis is guarded with multiple medical problems and comorbid conditions.
[2018-06-06] MEDS: PRAVASTATIN SODIUM 80 MG TAB PO SCH (20:55)
[2018-06-06] MEDS: GABAPENTIN 300 MG CAP PO SCH (20:55)
[2018-06-06] MEDS: amLODIPine 5 MG TAB PO SCH (21:05)
--- NOTE | 2018-06-07 00:18 | PN ---
PROGRESS NOTE DATE OF SERVICE: 06/06/2018. REASON FOR FOLLOWUP: Right groin wound and abscess MRSA. INTERVAL HISTORY: The patient is currently afebrile. She is breathing comfortably. Denies having any chest pain. No cough. No abdominal pain or any worsening pain in the right groin area. EXAM: Blood pressure 160/55 with a pulse of 87, temperature 98.7. She is 97% on room air. General description is an elderly female lying in bed in no distress. Respiratory system: Unlabored breathing. Clear to auscultation anteriorly. Heart S1, S2. Regular rate and rhythm. Abdomen: Soft. No tenderness. Right groin wound base looks clean. Wound is deep. No surrounding induration. LABS: Hemoglobin 8.1, white count 5.6, creatinine 0.73. DIAGNOSTIC IMPRESSION/PLAN: Patient with right groin abscess status post drainage culture with MRSA, currently on vancomycin that will be transitioned to Bactrim DS on discharge in view of the deep wound. The patient will benefit from the wound VAC for local wound care. Once the wound VAC is arranged she will be able to go home from Infectious Disease standpoint. Continue supportive care. MMODL / IJN: [id number] /
[2018-06-07] MEDS: VANCOMYCIN 1,500 MG in SODIUM CHLORIDE 0.9% 250 ML IVPB SCH ×2 (00:46→16:42)
[2018-06-07] MEDS: HYDROmorphone 1 MG/ML 1 ML SYRINGE IVP PRN ×2 (00:48→14:17)
[2018-06-07] MEDS: LEVOTHYROXINE 75 MCG TAB PO SCH (06:10)
[2018-06-07] MEDS: SODIUM CHLORIDE 0.9% 1,000 ML IV SCH (06:11)
[2018-06-07 07:59] LABS: Calcium 9.3 mg/dL (8.4-10.2); Potassium 3.8 mmol/L (3.5-5.1)
[2018-06-07] MEDS: ASPIRIN 81 MG PO SCH (09:01)
[2018-06-07] MEDS: LOSARTAN 50 MG TAB PO SCH (09:01)
[2018-06-07] MEDS: MULTIVITAMINS, THERA 1 EACH TAB PO SCH (09:01)
[2018-06-07] MEDS: amLODIPine 5 MG TAB PO SCH (09:01)
[2018-06-07] MEDS: Mirabegron [Myrbetriq] 25 MG PO SCH (09:01)
[2018-06-07] MEDS: FAMOTIDINE 20 MG TAB PO SCH (09:01)
[2018-06-07] MEDS: DOCUSATE 100 MG CAP PO SCH (09:01)
[2018-06-07] MEDS: VORTIOXETINE HYDROBROMIDE 10 MG TABLET PO SCH (09:02)
[2018-06-07] MEDS: SOTALOL 80 MG TAB PO SCH (09:02)
[2018-06-07] MEDS: TICAGRELOR 90 MG TAB PO SCH (09:02)
[2018-06-07] MEDS: ACETAMINOPHEN TAB 325 MG TAB PO PRN (09:11)
--- NOTE | 2018-06-07 13:46 | CDI ---
Documentation Clarification Form Date: 06/07/2018 1:31:46 PM From: Madeline Malone RN, CCDS Admit Date: 06/02/2018 7:15:00 AM Patient Name: Cielo Palomino Visit Number: [id number] ATTENTION: The Clinical Documentation Specialists (CDI) and [facility] Coding Staff appreciate your assistance in clarifying documentation. Please respond to the clarification below the line at the bottom and electronically sign. The CDI & [facility] Coding staff will review the response and follow-up if needed. Please note: Queries are made part of the Legal Health Record. If you have any questions, please contact the author of this message via ITS. Dr. Sumit Sweet Per your progress notes/operative note, a debridement was performed on 06/03/18 and requires further specificity. History/Risk Factors: Sepsis secondary to right groin abscess s/p I&D, Clinical Indicators: 06/03 Or report: Right groin abscess 06/04 Surgical progress Note: "S/P I D at PCP, culture performed 06/01/18 positive for MRSA Sepsis, present on admission, secondary to abscess." Treatment: 06/03 Procedure note: "An elliptical incision was made around the abscess cavity. The nonviable fat was dissected using sharp dissection with cautery. The wound measured approximately 10 x 8 x 4 cm deep. The specimens of pathology. A portion of the necrotic fat was sent for a tissue culture." Five elements required for accurate and compliant documentation of a debridement : 1. Technique used (e.g., excisional, excised, cutting, etc.) 2. Instrument(s) used (e.g., scalpel, curette, etc.) 3. Nature of the tissue removed (e.g., necrotic, devitalized tissues, non- viable tissue, etc.) 4. Appearance and size of the wound (e.g., down to fresh bleeding tissue, 7cm x 10cm, etc.) 5. Depth of the debridement* (e.g., skin, subcutaneous tissue, fascia, muscle , bone, etc.) In order to capture the severity of condition and code the appropriate procedure ; could you please document the following: Excisional debridement (the removal of necrotic, devitalized tissue or slough by means of cutting away of tissue) Non-excisional debridement (the removal of necrotic, devitalized tissue or slough by means of flushing, brushing, or washing. (Irrigation) Other; please specify Unable to determine (Last Revision: August 2017) This is from the operative note: There is indurated fat this area. An elliptical incision was made around the abscess cavity. The nonviable fat was dissected using sharp dissection with cautery. The wound measured approximately 10 x 8 x 4 cm deep. The specimens of pathology. A portion of the necrotic fat was sent for a tissue culture. The wound was packed with Kerlix with half-strength Betadine. Patient top she will was sent to recovery in stable condition. Sharp dissection means a scalpel was used for the dissection., The nonviable tissue was excised. The measurement of the wound is in the operative note. This was in the subcutaneous space. DARA
[2018-06-07 15:18] VITALS: RESP 16
[2018-06-07 15:24] VITALS: BP 145/61; PULSE 68; TEMP 97.6
--- NOTE | 2018-06-07 20:28 | PN ---
PROGRESS NOTE DATE OF SERVICE: 06/07/2018. REASON FOR FOLLOWUP: Right groin MRSA abscess and wound. INTERVAL HISTORY: The patient was seen on rounds this morning The patient has been afebrile, breathing comfortably. Denies having any chest pain. No cough. No abdominal pain or pain to the right groin area. PHYSICAL EXAMINATION: Blood pressure 145/61 with a pulse of 68. Temperature is 97.6. He is 96% on room air. General description is an elderly female, lying in bed in no distress. Respiratory system: Unlabored breathing. Clear to auscultation anteriorly. Heart S1, S2. Regular rate and rhythm. Abdomen soft. No tenderness. Right groin wound currently dressed up, no obvious drainage on the dressing. LABS: White count 5.6, creatinine 0.77, potassium 3.8. DIAGNOSTIC IMPRESSION AND PLAN: Patient with right groin abscess status post drainage, consistent with MRSA. Patient is currently on vanco that will be transitioned to Bactrim DS 1 twice a day for 10 days. Local wound care switched over to wound VAC and black foam. Continues pressure 1 25 mmHg To be changed Thursday and follow up with [facility] next week. Continue supportive care. MMODL / IJN: [id number] / DARA
--- NOTE | 2018-06-07 23:07 | P.DS ---
Providers Date of admission: 06/02/18 07:15 Attending physician: Anu Bernstein Consults: 06/02/18 07:19 Consult Physician Routine Consulting Provider: Sumit Sweet Consult Reason/Comments: abscess, right groin Do you want consulting provider notified?: Yes 06/03/18 12:28 Consult Physician Urgent Consulting Provider: Cindy Bella Consult Reason/Comments: Presumptive MRSA in right groin wound. Do you want consulting provider notified?: Yes [facility] care [facility] Course: Patient is a 78-year-old female with known history of hypertension, diabetes type 2, history of [place], hypothyroidism and history of cardiac Stent placement, coronary artery disease and is currently on anticoagulation with xarelto was brought to ER to be evaluated because she was confused and disoriented.pt had right groin abscess. she is status incision and drainage of an abscess that is located in the right groin area. This was performed at her primary care doctor' s office, and following the procedure she had been given a dose of clindamycin. CT abdomen and pelvis showed right hip arthroplasty . surgeon was following the pt. culture grew MRSA, pt was treated with iv vancomycin as per ID team recommendation, as well as his recommendation to dc pt on bactrim ( ID team provided script). wound vac is recommended , i discussed the case with bed side RN and bilingual patient support caseworker , wound vac is going to be provided to pt tomorrow in her rehab. PT recommended GRUPO and pt and son at bed side agreed to this plan. pt was cleared by surgery and ID teams for discharge Pt was instructed about the problems and management plan and Pt verbalized understanding and acceptance Pt is found stable and can be discharged to the community but needs follow up as outpt Discharge exam Gen.: Patient alert awake and oriented X 3, NOT IN DISTRESS CVS: s1-s2, RRR, no murmur CHEST:bilateral CTA, no wheezing or crepitation Abdomen: Soft, no tenderness, no distention, positive bowel sounds Extremities: No leg edema or induration. right groin wound ,deep , clean with wick with serosanguinous discharge mild. no surrounding cellulites time spent : more than 35 min Patient Condition at Discharge: Serious Plan - Discharge Summary New Discharge Prescriptions: New Acetaminophen Tab [Tylenol] 650 mg PO Q6HR PRN tab PRN Reason: Mild Pain Or Fever > 100.5 amLODIPine [Norvasc] 5 mg PO DAILY #30 tab Famotidine [Pepcid] 20 mg PO BID #20 tab Losartan [Cozaar] 50 mg PO DAILY #30 tab Sulfamethox-Tmp 800-160Mg [Bactrim DS 800-160 mg] 1 tab PO Q12HR #10 day Continue Levothyroxine Sodium [Synthroid] 150 mcg PO DAILY Aspirin EC [Ecotrin Low Dose] 81 mg PO DAILY Pravastatin Sodium [Pravachol] 80 mg PO HS Docusate Sodium [Dulcolax Stool Softener] 100 mg PO DAILY Vortioxetine Hydrobromide [Trintellix] 10 mg PO DAILY Sotalol [Betapace] 80 mg PO BID Rivaroxaban [Xarelto] 15 mg PO DAILY Multivitamins, Thera [Multivitamin (formulary)] 1 tab PO DAILY Mirabegron [Myrbetriq] 25 mg PO DAILY Gabapentin [Neurontin] 300 mg PO HS Ticagrelor [Brilinta] 90 mg PO BID Discontinued Losartan/Hydrochlorothiazide [Losartan-Hctz 100-25 mg Tab] 1 tab PO DAILY Discharge Medication List Aspirin EC [Ecotrin Low Dose] 81 mg PO DAILY 09/30/13 [History] Levothyroxine Sodium [Synthroid] 150 mcg PO DAILY 09/30/13 [History] Docusate Sodium [Dulcolax Stool Softener] 100 mg PO DAILY 11/07/14 [History] Pravastatin Sodium [Pravachol] 80 mg PO HS 11/07/14 [History] Gabapentin [Neurontin] 300 mg PO HS 06/01/18 [History] Mirabegron [Myrbetriq] 25 mg PO DAILY 06/01/18 [History] Multivitamins, Thera [Multivitamin (formulary)] 1 tab PO DAILY 06/01/18 [History ] Rivaroxaban [Xarelto] 15 mg PO DAILY 06/01/18 [History] Sotalol [Betapace] 80 mg PO BID 06/01/18 [History] Ticagrelor [Brilinta] 90 mg PO BID 06/01/18 [History] Vortioxetine Hydrobromide [Trintellix] 10 mg PO DAILY 06/01/18 [History] Acetaminophen Tab [Tylenol] 650 mg PO Q6HR PRN tab 06/07/18 [Rx] Famotidine [Pepcid] 20 mg PO BID #20 tab 06/07/18 [Rx] Losartan [Cozaar] 50 mg PO DAILY #30 tab 06/07/18 [Rx] Sulfamethox-Tmp 800-160Mg [Bactrim DS 800-160 mg] 1 tab PO Q12HR #10 day [Rx] amLODIPine [Norvasc] 5 mg PO DAILY #30 tab 06/07/18 [Rx] Follow up Appointment(s)/Referral(s): Maryann Craig DO [Primary Care Provider] - 1-[address] [facility], [NON-STAFF] - Cindy Bella MD [STAFF PHYSICIAN] - 1 Week Sumit Sweet MD [STAFF PHYSICIAN] - 1 Week Activity/Diet/Wound Care/Special Instructions: cardiac diet activity is limited till you see your doctor wet to dry dressing to right groin daily and PRN until wound vac available wound vac orders 125 continuous. change three times a week. granufoam silver size medium barrier cream to buttocks prn Discharge Disposition: TRANSFER TO SNF/ECF
== END 2018-06-07 17:12 | DRG 856 ==
LOC: EC 19:38 → 4MS4W 06-02 07:15
PROVIDERS: ADMIT Internal Medicine; ATTEND Internal Medicine
PROC: 0JBL0ZZ Excision of Right Upper Leg Subcutaneous Tissue and Fascia, Open Approach (ICD-10-PCS; principal; 2018-06-03 09:35)
DX: T81.41XA Infection following a procedure, superficial incisional surgical site, initial encounter (principal); A41.02 Sepsis due to Methicillin resistant Staphylococcus aureus; L02.214 Cutaneous abscess of groin; Z68.41 Body mass index [BMI] 40.0-44.9, adult; L03.115 Cellulitis of right lower limb; L03.314 Cellulitis of groin; T81.44XA Sepsis following a procedure, initial encounter; B95.62 Methicillin resistant Staphylococcus aureus infection as the cause of diseases classified elsewhere; E03.9 Hypothyroidism, unspecified; E11.9 Type 2 diabetes mellitus without complications; E27.8 Other specified disorders of adrenal gland; E66.01 Morbid (severe) obesity due to excess calories; E78.5 Hyperlipidemia, unspecified; E87.5 Hyperkalemia; F32.9 Major depressive disorder, single episode, unspecified; I10 Essential (primary) hypertension; I25.10 Atherosclerotic heart disease of native coronary artery without angina pectoris; I25.2 Old myocardial infarction; I25.5 Ischemic cardiomyopathy; K57.90 Diverticulosis of intestine, part unspecified, without perforation or abscess without bleeding; Z79.01 Long term (current) use of anticoagulants; Z79.02 Long term (current) use of antithrombotics/antiplatelets; Z79.82 Long term (current) use of aspirin; Z79.890 Hormone replacement therapy; Z79.899 Other long term (current) drug therapy; Z82.49 Family history of ischemic heart disease and other diseases of the circulatory system; Z90.710 Acquired absence of both cervix and uterus; Z95.5 Presence of coronary angioplasty implant and graft; Z96.641 Presence of right artificial hip joint; Z88.1 Allergy status to other antibiotic agents; Z88.0 Allergy status to penicillin; Z88.2 Allergy status to sulfonamides; Z88.8 Allergy status to other drugs, medicaments and biological substances; Z91.018 Allergy to other foods
CPT/HCPCS: 36415; 74177; 80048; 80053; 80202; 81001; 82150; 83605; 83690; 83735; 84484; 85025; 85027; 85610; 85730; 87040; 87070; 87075; 87077; 87086; 87186; 87205; 96365; 96366; 99291

== ENCOUNTER 2018-06-16 00:46 | Inpatient (IN) | payer MEDICARE, BC ==
[2018-06-16] MEDS ORDERED: IPRATROPIUM-ALBUTEROL 3 ML NEB INHALATION STA (01:06)
--- NOTE | 2018-06-16 01:20 | ED ---
General Adult HPI - General Chief complaint: Shortness of Breath Stated complaint: Shortness of Breath Source: patient Mode of arrival: EMS Limitations: no limitations - Related Data Home Medications Medication Instructions Recorded Confirmed Aspirin EC [Ecotrin Low Dose] 81 mg PO DAILY 09/30/13 06/01/18 Levothyroxine Sodium [Synthroid] 150 mcg PO DAILY 09/30/13 06/01/18 Docusate Sodium [Dulcolax Stool 100 mg PO DAILY 11/07/14 06/01/18 Softener] Pravastatin Sodium [Pravachol] 80 mg PO HS 11/07/14 06/01/18 Gabapentin [Neurontin] 300 mg PO HS 06/01/18 06/01/18 Mirabegron [Myrbetriq] 25 mg PO DAILY 06/01/18 06/01/18 Multivitamins, Thera [Multivitamin 1 tab PO DAILY 06/01/18 06/01/18 (formulary)] Rivaroxaban [Xarelto] 15 mg PO DAILY 06/01/18 06/01/18 Sotalol [Betapace] 80 mg PO BID 06/01/18 06/01/18 Ticagrelor [Brilinta] 90 mg PO BID 06/01/18 06/01/18 Vortioxetine Hydrobromide 10 mg PO DAILY 06/01/18 06/01/18 [Trintellix] Previous Rx's Medication Instructions Recorded Acetaminophen Tab [Tylenol] 650 mg PO Q6HR PRN tab 06/07/18 Famotidine [Pepcid] 20 mg PO BID #20 tab 06/07/18 Losartan [Cozaar] 50 mg PO DAILY #30 tab 06/07/18 Sulfamethox-Tmp 800-160Mg [Bactrim 1 tab PO Q12HR #10 day 06/07/18 DS 800-160 mg] amLODIPine [Norvasc] 5 mg PO DAILY #30 tab 06/07/18 Allergies Allergy/AdvReac Type Severity Reaction Status Date / Time atorvastatin calcium Allergy MUSCLE Verified 06/16/18 01:01 [From Lipitor] ACHES azithromycin Allergy Rash/Hives Verified 06/16/18 01:01 [From Zithromax Z-Chau] codeine Allergy Unknown Verified 06/16/18 01:01 fluticasone propionate Allergy Unknown Verified 06/16/18 01:01 [From Flonase] hydrochlorothiazide Allergy Unknown Verified 06/16/18 01:01 [From Dyazide] lincomycin HCl Allergy Unknown Verified 06/16/18 01:01 [From Lincocin] meperidine HCl [From Demerol] Allergy Unknown Verified 06/16/18 01:01 metronidazole [From Flagyl] Allergy Unknown Verified 06/16/18 01:01 Metronidazole HCl Allergy Unknown Verified 06/16/18 01:01 [From Flagyl] Penicillins Allergy Unknown Verified 06/16/18 01:01 rosuvastatin calcium Allergy MUSCLE Verified 06/16/18 01:01 [From Crestor] ACHES Sulfa (Sulfonamide Allergy Unknown Verified 06/16/18 01:01 Antibiotics) tetracycline [Tetracycline] Allergy Unknown Verified 06/16/18 01:01 triamterene [From Dyazide] Allergy Unknown Verified 06/16/18 01:01 watermelon Allergy Swelling Uncoded 06/16/18 01:01 Review of Systems ROS Statement: Those systems with pertinent positive or pertinent negative responses have been documented in the HPI. ROS Other: All systems not noted in ROS Statement are negative. Past Medical History Past Medical History: Diabetes Mellitus, Hypertension, Osteoarthritis (OA), Pneumonia, Thyroid Disorder Additional Past Medical History / Comment(s): Right hip infection, 11-07-14 SHINGLES TO RT FACE/EYE Last Myocardial Infarction Date:: 2017 History of Any Multi-Drug Resistant Organisms: MRSA, VRE Date of last positivie culture/infection: 06/03/18 MRSA: 12/21/15 VRE MDRO Source:: Groin-MRSA: Urine-VRE Past Surgical History: Appendectomy, Hysterectomy, Joint Replacement, Orthopedic Surgery, Tonsillectomy Additional Past Surgical History / Comment(s): RT HIP REPLACEMENT AND HAD 3 SEPARATE SX, HAD POST OP INFECTION AND WITH LAST ONE THEY TOOK EVERYTHING OUT BUT PT THINKS THEY PUT IN SPACER. Past Anesthesia/Blood Transfusion Reactions: No Reported Reaction Past Psychological History: Depression Smoking Status: Never smoker Past Alcohol Use History: None Reported Past Drug Use History: None Reported - Past Family History Father History Unknown: Yes Family Medical History: Hypertension Additional Family Medical History / Comment(s): BRAIN TUMOR Mother Family Medical History: Cancer General Exam Limitations: no limitations Course Vital Signs 06/16/18 06/16/18 06/16/18 00:57 01:18 02:02 Temperature 98.7 F Pulse Rate 112 H 112 H Respiratory 25 H 25 H Rate Blood Pressure 134/76 O2 Sat by Pulse 96 Oximetry 06/16/18 02:42 Temperature Pulse Rate 111 H Respiratory 25 H Rate Blood Pressure 138/86 O2 Sat by Pulse 96 Oximetry Medical Decision Making - Medical Decision Making Dictation was produced using [employer] dictation software. please excuse any grammatical, word or spelling errors. Chief Complaint: 78-year-old female currently undergoing treatment for MRSA of the groin with wound VAC presents with dyspnea. History of Present Illness: This 78-year-old female presents with dyspnea. Patient was transferred here via EMS from custodial. Patient began complaining of dyspnea. Patient is a poor historian. She states she is here because she is having difficulty in breathing. She is transferred here with a chart. Patient had x-ray that was performed 3 days ago showing right lower lobe atelectasis. Patient is a poor historian. Chart review shows that patient has a history of diabetes, hypertension, cardiac disease, pneumonia, thyroid disease. Patient has any fever, chills or body aches. She adamantly denies history of COPD or asthma. The ROS documented in this emergency department record has been reviewed and confirmed by me. Those systems with pertinent positive or negative responses have been documented in the HPI. All other systems are other negative and/or noncontributory. PHYSICAL EXAM: General Impression: Alert and oriented x3, not in acute distress HEENT: Normocephalic atraumatic, extra-ocular movements intact, pupils equal and reactive to light bilaterally, mucous membranes moist. Cardiovascular: Heart regular rate and rhythm, S1&S2 audible, no murmurs, rubs or gallops Chest: Diffuse bilateral end expiratory wheezing Abdomen: Bowel sounds present, abdomen soft, non-tender, non-distended, no organomegaly Musculoskeletal: Pulses present and equal in all extremities, no peripheral edema Motor: Power 5/5 bilaterally, no focal deficits noted Neurological: CN II-XII grossly intact, no focal motor or sensory deficits noted Skin: Intact with no visualized rashes, right groin wound VAC site is not erythematous not indurated ED course: 78-year-old female presents here for dyspnea. As upon of shows heart rate of 112, respiratory 25. Patient appears slightly anxious. Patient is wheezing to bilateral lungs.Laboratory evaluation obtained. CBC, metabolic panel is unremarkable. Influenza test was negative. Chest x-ray shows no acute processes. Patient given multiple rounds breathing treatment with persistent wheezing. Patient showing some slight respiratory distress. Patient was given steroids prior to transfer to our facility. Patient to be admitted to observation for [id number] breathing treatments and further medical monitoring. EKG interpretation: Ventricular rate 112, sinus tachycardia, QRS 82, QTc 524. No MI prolongation, no QTC prolongation, no ST or T-wave changes noted. - Lab Data Result diagrams: 06/16/18 01:15 06/16/18 01:15 Lab Results 06/16/18 06/16/18 06/16/18 Range/Units 01:15 01:15 01:20 WBC 4.5 (3.8-10.6) k/uL RBC 3.60 L (3.80-5.40) m/uL Hgb 9.3 L (11.4-16.0) gm/dL Hct 29.9 L (34.0-46.0) % MCV 83.0 (80.0-100.0) fL MCH 25.7 (25.0-35.0) pg MCHC 31.0 (31.0-37.0) g/dL RDW 17.1 H (11.5-15.5) % Plt Count 258 (150-450) k/uL Neutrophils % 84 % Lymphocytes % 11 % Monocytes % 2 % Eosinophils % 1 % Basophils % 0 % Neutrophils # 3.8 (1.3-7.7) k/uL Lymphocytes # 0.5 L (1.0-4.8) k/uL Monocytes # 0.1 (0-1.0) k/uL Eosinophils # 0.1 (0-0.7) k/uL Basophils # 0.0 (0-0.2) k/uL Hypochromasia Marked Poikilocytosis Slight Anisocytosis Slight Sodium 140 (137-145) mmol/L Potassium 3.5 (3.5-5.1) mmol/L Chloride 107 (98-107) mmol/L Carbon Dioxide 26 (22-30) mmol/L Anion Gap 7 mmol/L BUN 12 (7-17) mg/dL Creatinine 0.72 (0.52-1.04) mg/dL Est GFR (CKD-EPI)AfAm >90 (>60 ml/min/1.73 sqM) Est GFR (CKD-EPI)NonAf 81 (>60 ml/min/1.73 sqM) Glucose 208 H (74-99) mg/dL POC Glucose (mg/dL) 209 H (75-99) mg/dL POC Glu Helicopter Technician ID Arminda Gaston Calcium 8.9 (8.4-10.2) mg/dL Influenza Type A RNA (Not Detectd) Influenza Type B (PCR) (Not Detectd) 06/16/18 Range/Units 01:34 WBC (3.8-10.6) k/uL RBC (3.80-5.40) m/uL Hgb (11.4-16.0) gm/dL Hct (34.0-46.0) % MCV (80.0-100.0) fL MCH (25.0-35.0) pg MCHC (31.0-37.0) g/dL RDW (11.5-15.5) % Plt Count (150-450) k/uL Neutrophils % % Lymphocytes % % Monocytes % % Eosinophils % % Basophils % % Neutrophils # (1.3-7.7) k/uL Lymphocytes # (1.0-4.8) k/uL Monocytes # (0-1.0) k/uL Eosinophils # (0-0.7) k/uL Basophils # (0-0.2) k/uL Hypochromasia Poikilocytosis Anisocytosis Sodium (137-145) mmol/L Potassium (3.5-5.1) mmol/L Chloride (98-107) mmol/L Carbon Dioxide (22-30) mmol/L Anion Gap mmol/L BUN (7-17) mg/dL Creatinine (0.52-1.04) mg/dL Est GFR (CKD-EPI)AfAm (>60 ml/min/1.73 sqM) Est GFR (CKD-EPI)NonAf (>60 ml/min/1.73 sqM) Glucose (74-99) mg/dL POC Glucose (mg/dL) (75-99) mg/dL POC Glu Helicopter Technician ID Calcium (8.4-10.2) mg/dL Influenza Type A RNA Not Detected (Not Detectd) Influenza Type B (PCR) Not Detected (Not Detectd) Disposition Clinical Impression: Adult respiratory distress syndrome Disposition: ADMITTED IP TO THIS HOSP Condition: Fair Referrals: Chastity Mijares MD [Primary Care Provider] - 1-2 days Decision Time: 02:58
[2018-06-16 01:22] LABS: Glucose,Whole Blood 209 mg/dL (75-99)
[2018-06-16 01:37] LABS: Anisocytosis Slight; Basophils % (A) 0 %; Eosinophils # (A) 0.1 k/uL (0-0.7); Eosinophils % (A) 1 %; HCT 29.9 % (34.0-46.0); HGB 9.3 gm/dL (11.4-16.0); Hypochromasia Marked; Lymphocytes # (A) 0.5 k/uL (1.0-4.8); Lymphocytes % (A) 11 %; MCH 25.7 pg (25.0-35.0); Mean Platelet Volume 7.7; Monocytes # (A) 0.1 k/uL (0-1.0); Monocytes % (A) 2 %; Neutrophils # (A) 3.8 k/uL (1.3-7.7); Neutrophils % (A) 84 %; Platelet Count 258 k/uL (150-450); Poikilocytosis Slight; RDW 17.1 % (11.5-15.5); WBC 4.5 k/uL (3.8-10.6)
--- NOTE | 2018-06-16 01:55 | XR ---
EXAMINATION TYPE: XR chest 2V DATE OF EXAM: 06/16/2018 COMPARISON: 10/04/2013 HISTORY: Short of breath TECHNIQUE: Frontal and lateral views of the chest are obtained. FINDINGS: There is no heart failure nor confluent pneumonic infiltrate. Heart appears slightly enlar ged. There is no pleural effusion. There are chest leads. IMPRESSION: No active cardiopulmonary disease. Mild cardiomegaly. No change.
[2018-06-16 01:56] LABS: Anion Gap 7 mmol/L; Blood Urea Nitrogen 12 mg/dL (7-17); Calcium 8.9 mg/dL (8.4-10.2); Carbon Dioxide 26 mmol/L (22-30); Chloride 107 mmol/L (98-107); Glucose 208 mg/dL (74-99); Potassium 3.5 mmol/L (3.5-5.1); Sodium 140 mmol/L (137-145)
[2018-06-16] MEDS ORDERED: DEXAMETHASONE SOD PHOSPHATE 10 MG/ML 1 ML VIAL IV STA (02:51)
[2018-06-16] MEDS ORDERED: IPRATROPIUM-ALBUTEROL 3 ML NEB INHALATION PRN (02:58)
[2018-06-16] MEDS ORDERED: predniSONE 20 MG TAB PO SCH (09:00)
[2018-06-16] MEDS ORDERED: DOCUSATE 100 MG CAP PO PRN (09:31)
[2018-06-16] MEDS ORDERED: LOSARTAN-HCTZ 50-12.5 MG 1 EACH TAB PO SCH (09:45)
[2018-06-16] MEDS ORDERED: predniSONE 50 MG TAB PO SCH (09:45)
[2018-06-16] MEDS ORDERED: VANCOMYCIN 1,000 MG VIAL IVPB SCH (09:45)
[2018-06-16] MEDS ORDERED: ENOXAPARIN 40 MG/0.4 ML SYRINGE SQ SCH (09:45)
[2018-06-16] MEDS: LEVOTHYROXINE 75 MCG TAB PO SCH (10:31)
[2018-06-16] MEDS: SOTALOL 80 MG TAB PO SCH ×2 (10:32→21:03)
[2018-06-16] MEDS: VORTIOXETINE HYDROBROMIDE 10 MG TABLET PO SCH (10:32)
[2018-06-16] MEDS: MYRBETRIQ 25MG PO SCH (10:32)
[2018-06-16] MEDS: TICAGRELOR 90 MG TAB PO SCH ×2 (10:32→21:03)
[2018-06-16 10:36] VITALS: BMI 35.4
[2018-06-16] MEDS ORDERED: VANCOMYCIN IV PER PHARMACY 1 EACH MISC MISCELLANE ONE (10:45)
[2018-06-16] MEDS: VANCOMYCIN 1,250 MG in SODIUM CHLORIDE 0.9% 250 ML IVPB SCH ×2 (12:54→21:04)
[2018-06-16] MEDS: IPRATROPIUM-ALBUTEROL 3 ML NEB INHALATION SCH ×3 (14:20→20:33)
--- NOTE | 2018-06-16 14:52 | CONS ---
CONSULTATION DATE OF SERVICE: 06/16/2018 REASON FOR CONSULTATION: Right groin wound and IV antibiotic regimen. HISTORY OF PRESENT ILLNESS: The patient is a 78-year-old female who was recently admitted to this facility. Patient did have a right groin abscess. Patient did have drainage of this abscess done by Dr. Sweet. Culture was positive for MRSA. Patient received IV vancomycin. On discharge, the patient was transitioned to oral Bactrim DS however Patient apparently was ALLERGIC to Bactrim DS which was not on her [facility] chart hence the patient got PICC line and is currently getting vancomycin pharmacy to dose At [facility] and the patient local wound care to the right groin has been with the wound VAC. Patient has now been brought into the ER by the EMS from the alf with chief complaints of patient having shortness of breath. Patient denies having any chest pain. She did have a cough which is mild to moderate in intensity and she did bring up some yellowish to green sputum but no hemoptysis. The patient denies having any nausea, no vomiting, no choking on food. No abdominal pain or any diarrhea. The patient was evaluated by the ER physician. On admission, patient has been afebrile. The patient's white count normal at 4.5, creatinine was 0.72. The patient influenza serology was negative. The patient has been continued on vancomycin in the hospital and ID was consulted for further coverage of antibiotic therapy. Patient did have a chest x-ray that shows no active cardiopulmonary disease, mild cardiomegaly. No change. REVIEW OF SYSTEMS: Positive points have been mentioned in HPI. Rest of systems has been negative. PAST MEDICAL HISTORY: Diabetes mellitus, hypertension, osteoarthritis, pneumonia, hypothyroidism, right groin abscess and MRSA. PAST SURGICAL HISTORY: Right groin abscess drainage, appendectomy, hysterectomy and right hip replacement. SOCIAL HISTORY: No history of smoking, drinking, or drug use. FAMILY HISTORY: Father history of hypertension, brain tumor. Family history of cancer. ALLERGIES: To LIPITOR, ERYTHROMYCIN, CODEINE, FLUTICASONE, DYAZIDE, VANCOMYCIN, OMEPRAZOLE. MEDICATION: Currently the patient is on Tylenol, DuoNeb, Colace, Lovenox, Neurontin, Hyzaar, Synthroid, vancomycin pharmacy to dose, Pravachol, prednisone, Betapace. PHYSICAL EXAMINATION: Blood pressure is 129/68, pulse of 109, temperature 97.8, she is 97% on 2 L nasal cannula. General description is an elderly female, lying in bed in no distress. No tachypnea or accessory muscle for respiration use. HEENT: Shows slight pallor. No scleral icterus. Oral mucosa is dry. No pharyngeal erythema or thrush. NECK: Trachea central, no thyromegaly. LUNGS: Unlabored breathing, decreased intensive breath sounds from the base. No wheeze. HEART: S1, S2, irregular rate and rhythm. ABDOMEN: Soft no tenderness no rigidity. Right groin wound after removal of the wound base looks clean with no slough tissue no surrounding induration or foul- smelling drainage extremities some trace edema feet examination: No rash or mass palpable neurological patient is awake, alert, oriented x3 affect normal. LABS: Hemoglobin 9.8, white count 4.5 BUN of 12, creatinine 0.72. DIAGNOSTIC IMPRESSION AND PLAN: 1. Patient with right groin abscess, status post surgical drainage, culture positive for methicillin-resistant Staphylococcus aureus. Apparently;the patient did have Bactrim allergies and currently the patient being treated with vancomycin pharmacy to dose, patient vancomycin random level was 20 today. The wound base looks really clean with no evidence of any slough tissue surrounding cellulitis or induration. 2. Patient in the hospital with difficulty in breathing, possible chronic obstructive the patient tracheobronchitis. There was no evidence of any pneumonia on the chest x-ray. The patient not running any fever and white count has been normal. PLAN: 1. Local wound care to the right groin wound with a wound VAC., continuous pressure 125 Millimeter of mercury to be changed Thursday, Thursday, Thursday. 2. Vancomycin pharmacy to dose target trough of 15 while watching kidney function closely. 3. Bronchodilators and steroids per admitting team for her underlying COPD exacerbation. 4. Follow up clinical condition and culture to further adjust medication if needed. Thank you for this consultation. Will follow the patient along with you. MMODL / IJN: [id number] / DARA
--- NOTE | 2018-06-16 15:58 | P.CNPUL ---
History of Present Illness Consult date: 06/16/18 Requesting physician: Awilda Vaughan Reason for consult: dyspnea, cough Chief complaint: Cough, congestion, phlegm production History of present illness: This is a 78-year-old the white female patient of Dr. Craig with medical history of diabetes mellitus, hypertension, hypothyroidism, osteoarthritis, previous MRSA infection in the groin wound, VRE urinary tract infection, right hip replacement with subsequent postoperative right hip infection, wearing removal of hardware and placement of a spacer, depression. Patient was recently hospitalized for right groin abscess, went incision and drainage of the abscess, he was treated with clindamycin initially, and the wound culture was positive for MRSA and antibiotic was switched to vancomycin. Patient was discharged to rehab facility on Bactrim, wound VAC was placed a week ago. Today on 06/16/2018 patient was brought into the emergency department from the [facility] for evaluation of shortness of breath, cough, chest congestion, thick and green phlegm production. She states her symptoms started yesterday, patient is a poor historian. No fever or chills, no chest pain. Patient does have history of smoking, in the past, she states she quit 50 years ago. Chest x-ray showed no active cardiopulmonary disease. Lab work showed white blood cell count of 4.5, hemoglobin of 9.3, electrolytes and renal profile were within normal limits. Fluids a screen was negative. She has been afebrile, in the hospital, she is currently on 2 L per nasal cannula pulse ox is 93%. Lung sounds are positive for diffuse wheezes throughout the lung keen. He seen her in consultation for acute exacerbation of COPD with purulent tracheobronchitis. Review of Systems All systems: negative Constitutional: Denies chills, Denies fever Eyes: denies blurred vision, denies pain Ears, nose, mouth and throat: Denies headache, Denies sore throat Cardiovascular: Denies chest pain, Denies shortness of breath Respiratory: Reports congestion, Reports cough with sputum, Reports dyspnea, Reports wheezing, Denies cough Gastrointestinal: Denies abdominal pain, Denies diarrhea, Denies nausea, Denies vomiting Genitourinary: Denies dysuria, Denies hematuria Musculoskeletal: Denies myalgias Integumentary: Reports wounds, Denies pruritus, Denies rash Neurological: Denies numbness, Denies weakness Psychiatric: Denies anxiety, Denies depression Endocrine: Denies fatigue, Denies weight change Past Medical History Past Medical History: Diabetes Mellitus, Hyperlipidemia, Hypertension, Osteoarthritis (OA), Pneumonia, Thyroid Disorder Additional Past Medical History / Comment(s): Right hip infection, 11-07-14 SHINGLES TO RT FACE/EYE. Diabetes type 2, Hypothyrodism, osteoporosis, anemia, depression, Last Myocardial Infarction Date:: 2017 History of Any Multi-Drug Resistant Organisms: MRSA, VRE Date of last positivie culture/infection: 06/03/18 MRSA: 12/21/15 VRE MDRO Source:: Groin-MRSA: Urine-VRE Past Surgical History: Appendectomy, Hysterectomy, Joint Replacement, Orthopedic Surgery, Tonsillectomy Additional Past Surgical History / Comment(s): RT HIP REPLACEMENT AND HAD 3 SEPARATE SX, HAD POST OP INFECTION AND WITH LAST ONE THEY TOOK EVERYTHING OUT BUT PT THINKS THEY PUT IN SPACER. Past Anesthesia/Blood Transfusion Reactions: No Reported Reaction Past Psychological History: Depression Smoking Status: Former smoker Past Alcohol Use History: None Reported Past Drug Use History: None Reported - Past Family History Father History Unknown: Yes Family Medical History: Hypertension Additional Family Medical History / Comment(s): BRAIN TUMOR Mother Family Medical History: Cancer Medications and Allergies Home Medications Medication Instructions Recorded Confirmed Type Levothyroxine Sodium [Synthroid] 150 mcg PO DAILY 09/30/13 06/16/18 History Docusate Sodium [Dulcolax Stool 100 mg PO DAILY 11/07/14 06/16/18 History Softener] Pravastatin Sodium [Pravachol] 80 mg PO HS 11/07/14 06/16/18 History Gabapentin [Neurontin] 300 mg PO HS 06/01/18 06/16/18 History Mirabegron [Myrbetriq] 25 mg PO DAILY 06/01/18 06/16/18 History Multivitamins, Thera [Multivitamin 1 tab PO DAILY 06/01/18 06/16/18 History (formulary)] Sotalol [Betapace] 80 mg PO BID 06/01/18 06/16/18 History Vortioxetine Hydrobromide 10 mg PO DAILY 06/01/18 06/16/18 History [Trintellix] Acetaminophen Tab [Tylenol Tab] 650 mg PO Q6H PRN 06/16/18 06/16/18 History Aspirin [[place]ana Aspirin EC] 81 mg PO MOWEFR 06/16/18 06/16/18 History Budesonide [Pulmicort] 0.5 mg INHALATION RT-BID 06/16/18 06/16/18 History Enoxaparin [Lovenox] 40 mg SQ DAILY 06/16/18 06/16/18 History Famotidine 20 mg PO BID 06/16/18 06/16/18 History Ferrous Sulfate [Feosol] 325 mg PO DAILY 06/16/18 06/16/18 History Hydrocodone/Acetaminophen [Lamar 1 tab PO Q6HR PRN 06/16/18 06/16/18 History 5-325] Ipratropium-Albuterol Nebulize 3 ml INHALATION RT-Q4H PRN 06/16/18 06/16/18 History [Duoneb 0.5 mg-3 mg/3 ml Soln] Losartan [Cozaar] 50 mg PO DAILY@0900 06/16/18 06/16/18 History Vancomycin 900 mg IVPB BID 06/16/18 06/16/18 History amLODIPine [Norvasc] 5 mg PO DAILY@0900 06/16/18 06/16/18 History predniSONE 50 mg PO DAILY 06/16/18 06/16/18 History Allergies Allergy/AdvReac Type Severity Reaction Status Date / Time atorvastatin calcium Allergy MUSCLE Verified 06/16/18 01:01 [From Lipitor] ACHES azithromycin Allergy Rash/Hives Verified 06/16/18 01:01 [From Zithromax Z-Chau] codeine Allergy Unknown Verified 06/16/18 01:01 fluticasone propionate Allergy Unknown Verified 06/16/18 01:01 [From Flonase] hydrochlorothiazide Allergy Unknown Verified 06/16/18 01:01 [From Dyazide] lincomycin HCl Allergy Unknown Verified 06/16/18 01:01 [From Lincocin] meperidine HCl [From Demerol] Allergy Unknown Verified 06/16/18 01:01 metronidazole [From Flagyl] Allergy Unknown Verified 06/16/18 01:01 Metronidazole HCl Allergy Unknown Verified 06/16/18 01:01 [From Flagyl] Penicillins Allergy Unknown Verified 06/16/18 01:01 rosuvastatin calcium Allergy MUSCLE Verified 06/16/18 01:01 [From Crestor] ACHES Sulfa (Sulfonamide Allergy Unknown Verified 06/16/18 01:01 Antibiotics) tetracycline [Tetracycline] Allergy Unknown Verified 06/16/18 01:01 triamterene [From Dyazide] Allergy Unknown Verified 06/16/18 01:01 watermelon Allergy Swelling Uncoded 06/16/18 01:01 Physical Exam Vitals: Vital Signs Temp Pulse Pulse Resp BP BP Pulse Ox 06/16/18 15:06 96.7 F L 74 20 159/74 93 L 06/16/18 05:29 97.8 F 111 H 20 129/68 97 06/16/18 04:00 98.2 F 109 H 18 138/80 96 06/16/18 02:42 111 H 25 H 138/86 96 06/16/18 02:15 108 H 06/16/18 02:02 112 H 06/16/18 01:18 25 H 06/16/18 00:57 98.7 F 112 H 25 H 134/76 96 Intake and Output 06/16/18 06/16/18 06/16/18 06:59 14:59 22:59 Intake Total 240 850 Balance 240 850 Intake: Intake, IV Titration 250 Amount Vancomycin 1,250 mg In 250 Sodium Chloride 0.9% 250 ml @ 125 mls/hr IVPB Q24HR@1000,2200 [facility] Rx#: [id number] Oral 240 600 Other: Voiding Method Incontinent Incontinent # Voids 2 Weight 90.718 kg 90.718 kg GENERAL EXAM: Alert, pleasant, 78-year-old white female, comfortable in no apparent distress. HEAD: Normocephalic/atraumatic. EYES: Normal reaction of pupils, equal size. Conjunctiva pink, sclera white. NOSE: Clear with pink turbinates. THROAT: No erythema or exudates. NECK: No masses, no JVD, no thyroid enlargement, no adenopathy. CHEST: No chest wall deformity. Symmetrical expansion. LUNGS: Equal air entry with diffuse wheezes throughout the lung keen CVS: Regular rate and rhythm, normal S1 and S2, no gallops, no murmurs, no rubs ABDOMEN: Soft, nontender. No hepatosplenomegaly, normal bowel sounds, no guarding or rigidity. EXTREMITIES: No clubbing, no edema, no cyanosis, 2+ pulses and upper and lower extremities. MUSCULOSKELETAL: Muscle strength and tone normal. SPINE: No scoliosis or deformity SKIN: No rashes CENTRAL NERVOUS SYSTEM: Alert and oriented -3. No focal deficits, tone is normal in all 4 extremities. PSYCHIATRIC: Alert and oriented -3. Appropriate affect. Intact judgment and insight. Results - Laboratory Findings CBC and BMP: 06/16/18 01:15 06/16/18 01:15 Abnormal lab findings: Abnormal Labs 06/16/18 06/16/18 06/16/18 01:15 01:15 01:20 RBC 3.60 L Hgb 9.3 L Hct 29.9 L RDW 17.1 H Lymphocytes # 0.5 L Glucose 208 H POC Glucose (mg/dL) 209 H - Diagnostic Findings Chest x-ray: report reviewed, image reviewed Assessment and Plan Plan: Assessment: #1. Acute exacerbation of chronic obstructive pulmonary disease complicated by tracheobronchitis #2. Right groin abscess, wound cultures positive for MRSA, status post incision and drainage and placement of a wound VAC a week ago. She was hospitalized and discharged to an [facility] on 06/07/2018 #3. Diabetes mellitus type 2 #4. Hypertension #5. Osteoarthritis #6. Venous episodes of pneumonia #7. Hypothyroidism #8. History of vancomycin-resistant enterococcus urinary tract infection #9. History of right hip replacement, and revision 6 with postoperative infection #10. Remote history of smoking #11. Coronary artery disease with previous stent placement #12. History of myocardial infarction Plan: Switch the oral prednisone to IV Solu-Medrol 60 mg U6 hours, continue nebulized bronchodilators, continue Pulmicort, continue vancomycin, we'll add Levaquin for gram negative coverage. It is not clear why the patient is on Xarelto. Patient is a poor historian. We will continue treat her COPD, we'll continue to follow I performed a history & physical examination of the patient and discussed their management with my nurse practitioner, Eliza Woodruff. I reviewed the nurse practitioner's note and agree with the documented findings and plan of care. Lung sounds are positive for diffuse wheezes throughout the lung keen. The findings and the impression was discussed with the patient. I attest to the documentation by the nurse practitioner. Time with Patient: Greater than 30
[2018-06-16] MEDS ORDERED: LEVOFLOXACIN 750MG-D5W PMX 750 MG in DEXTROSE/WATER 1 150ML.BAG IVPB SCH (16:00)
[2018-06-16] MEDS: ACETAMINOPHEN TAB 325 MG TAB PO PRN (18:15)
[2018-06-16] MEDS: methylPREDNISolone SOD SUCCI 125 MG/2 ML VIAL IV SCH ×3 (18:17→23:26)
[2018-06-16] MEDS: ASPIRIN 81 MG PO SCH (18:17)
[2018-06-16] MEDS: RIVAROXABAN 15 MG TAB PO SCH (18:18)
[2018-06-16 19:58] LABS: Glucose,Whole Blood 212 mg/dL (75-99)
[2018-06-16] MEDS: BUDESONIDE 0.5 MG/2 ML NEBU INHALATION SCH (20:33)
[2018-06-16] MEDS: PRAVASTATIN SODIUM 80 MG TAB PO SCH (21:03)
[2018-06-16] MEDS: FAMOTIDINE 20 MG TAB PO SCH (21:03)
[2018-06-16] MEDS: GABAPENTIN 300 MG CAP PO SCH (21:03)
[2018-06-16] MEDS: INSULIN ASPART 100 UNIT/ML 1 ML 10 ML VIAL SQ SCH (21:04)
--- NOTE | 2018-06-17 00:17 | P.HPIM ---
History of Present Illness H&P Date: 06/16/18 Chief Complaint: Redness of breath Patient is a 78-year-old female with a known history of hypertension, hyperlipidemia, diabetes type 2 [id number], osteoarthritis, hypothyroidism and recent right groin infection/abscess status post I&D with wound cultures growing MRSA, currently on vancomycin IV at [facility] was brought to the hospital due to worsening shortness of breath and wheezing. Patient also having cough congestion and sputum production whitish to green in color. Patient does not have any fever or chills. No commerce of chest pain. No nausea vomiting or abdominal pain. No diarrhea. Chest x-ray showed no acute cardio pulmonary process EKG showed accelerated junctional rhythm. No leukocytosis. Review of Systems Constitutional: Patient denies any fever or chills . No generalized weakness or weight loss. Abdomen: Patient denied nausea vomiting and diarrhea and abdominal pain. Cardiovascular: Patient denies any chest pain or short of breath no palpitations. Respiratory: Cough Without sputum production. Shortness of breath. Chest tightness. Neurologic: Patient denied any numbness or tingling headache. Musculoskeletal: Patient denies any complaints of joint swelling or deformity. Skin: Negative Psychiatric: Negative Endocrine: No heat or cold intolerance. No recent weight gain. Genitourinary: No dysuria or hematuria. All other 14 point ROS negative except the above Past Medical History Past Medical History: Diabetes Mellitus, Hyperlipidemia, Hypertension, Osteoarthritis (OA), Pneumonia, Thyroid Disorder Additional Past Medical History / Comment(s): Right hip infection, 6-16-15 SHINGLES TO RT FACE/EYE. Diabetes type 2, Hypothyrodism, osteoporosis, anemia, depression, Last Myocardial Infarction Date:: 2017 History of Any Multi-Drug Resistant Organisms: MRSA, VRE Date of last positivie culture/infection: 06/03/18 MRSA: 12/21/15 VRE MDRO Source:: Groin-MRSA: Urine-VRE Past Surgical History: Appendectomy, Hysterectomy, Joint Replacement, Orthopedic Surgery, Tonsillectomy Additional Past Surgical History / Comment(s): RT HIP REPLACEMENT AND HAD 3 SEPARATE SX, HAD POST OP INFECTION AND WITH LAST ONE THEY TOOK EVERYTHING OUT BUT PT THINKS THEY PUT IN SPACER. Past Anesthesia/Blood Transfusion Reactions: No Reported Reaction Past Psychological History: Depression Smoking Status: Former smoker Past Alcohol Use History: None Reported Past Drug Use History: None Reported - Past Family History Father History Unknown: Yes Family Medical History: Hypertension Additional Family Medical History / Comment(s): BRAIN TUMOR Mother Family Medical History: Cancer Medications and Allergies Home Medications Medication Instructions Recorded Confirmed Type Levothyroxine Sodium [Synthroid] 150 mcg PO DAILY 09/30/13 06/16/18 History Docusate Sodium [Dulcolax Stool 100 mg PO DAILY 11/07/14 06/16/18 History Softener] Pravastatin Sodium [Pravachol] 80 mg PO HS 11/07/14 06/16/18 History Gabapentin [Neurontin] 300 mg PO HS 06/01/18 06/16/18 History Mirabegron [Myrbetriq] 25 mg PO DAILY 06/01/18 06/16/18 History Multivitamins, Thera [Multivitamin 1 tab PO DAILY 06/01/18 06/16/18 History (formulary)] Sotalol [Betapace] 80 mg PO BID 06/01/18 06/16/18 History Vortioxetine Hydrobromide 10 mg PO DAILY 06/01/18 06/16/18 History [Trintellix] Acetaminophen Tab [Tylenol Tab] 650 mg PO Q6H PRN 06/16/18 06/16/18 History Aspirin [[place] Aspirin EC] 81 mg PO MOWEFR 06/16/18 06/16/18 History Budesonide [Pulmicort] 0.5 mg INHALATION RT-BID 06/16/18 06/16/18 History Enoxaparin [Lovenox] 40 mg SQ DAILY 06/16/18 06/16/18 History Famotidine 20 mg PO BID 06/16/18 06/16/18 History Ferrous Sulfate [Feosol] 325 mg PO DAILY 06/16/18 06/16/18 History Hydrocodone/Acetaminophen [[place] 1 tab PO Q6HR PRN 06/16/18 06/16/18 History 5-325] Ipratropium-Albuterol Nebulize 3 ml INHALATION RT-Q4H PRN 06/16/18 06/16/18 History [Duoneb 0.5 mg-3 mg/3 ml Soln] Losartan [Cozaar] 50 mg PO DAILY@0900 06/16/18 06/16/18 History Vancomycin 900 mg IVPB BID 06/16/18 06/16/18 History amLODIPine [Norvasc] 5 mg PO DAILY@0900 06/16/18 06/16/18 History predniSONE 50 mg PO DAILY 06/16/18 06/16/18 History Allergies Allergy/AdvReac Type Severity Reaction Status Date / Time atorvastatin calcium Allergy MUSCLE Verified 06/16/18 01:01 [From Lipitor] ACHES azithromycin Allergy Rash/Hives Verified 06/16/18 01:01 [From Zithromax Z-Chau] codeine Allergy Unknown Verified 06/16/18 01:01 fluticasone propionate Allergy Unknown Verified 06/16/18 01:01 [From Flonase] hydrochlorothiazide Allergy Unknown Verified 06/16/18 01:01 [From Dyazide] lincomycin HCl Allergy Unknown Verified 06/16/18 01:01 [From Lincocin] meperidine HCl [From Demerol] Allergy Unknown Verified 06/16/18 01:01 metronidazole [From Flagyl] Allergy Unknown Verified 06/16/18 01:01 Metronidazole HCl Allergy Unknown Verified 06/16/18 01:01 [From Flagyl] Penicillins Allergy Unknown Verified 06/16/18 01:01 rosuvastatin calcium Allergy MUSCLE Verified 06/16/18 01:01 [From Crestor] ACHES Sulfa (Sulfonamide Allergy Unknown Verified 06/16/18 01:01 Antibiotics) tetracycline [Tetracycline] Allergy Unknown Verified 06/16/18 01:01 triamterene [From Dyazide] Allergy Unknown Verified 06/16/18 01:01 watermelon Allergy Swelling Uncoded 06/16/18 01:01 Physical Exam Vitals: Vital Signs Temp Pulse Pulse Resp BP BP Pulse Ox 06/16/18 05:29 97.8 F 111 H 20 129/68 97 06/16/18 04:00 98.2 F 109 H 18 138/80 96 06/16/18 02:42 111 H 25 H 138/86 96 06/16/18 02:15 108 H 06/16/18 02:02 112 H 06/16/18 01:18 25 H 06/16/18 00:57 98.7 F 112 H 25 H 134/76 96 Intake and Output 06/15/18 06/16/18 06/16/18 22:59 06:59 14:59 Intake Total 240 Balance 240 Intake: Oral 240 Other: Voiding Method Incontinent Incontinent # Voids 1 Weight 90.718 kg 90.718 kg PHYSICAL EXAMINATION: Patient is lying in the bed comfortably, no acute distress, awake alert and oriented.. HEENT: Normocephalic. Neck is supple. Pupils reactive. Nostrils clear. Oral cavity is moist. Ears reveal no drainage. Neck reveals no JVD, carotid bruits, or thyromegaly. CHEST EXAMINATION: Trachea is central. Symmetrical expansion. Bilateral diffuse wheezing and rhonchi. CARDIAC: Normal S1, S2 with no gallops. No murmurs ABDOMEN: Soft. Bowel sounds normal. No organomegaly. No abdominal bruits. Right groin wound is healing well. Extremities: reveal no edema. No clubbing or cyanosis Neurologically awake, alert, oriented x3 with well-coordinated movements. No focal deficits noted Skin: No rash or skin lesions. Psychiatric: Coperative. Nonsuicidal Musculoskeletal: No joint swelling or deformity. Normal range of motion. Results CBC & Chem 7: 06/16/18 01:15 06/16/18 01:15 Labs: Abnormal Lab Results - Last 24 Hours (Table) 06/16/18 06/16/18 06/16/18 Range/Units 01:15 01:15 01:20 RBC 3.60 L (3.80-5.40) m/uL Hgb 9.3 L (11.4-16.0) gm/dL Hct 29.9 L (34.0-46.0) % RDW 17.1 H (11.5-15.5) % Lymphocytes # 0.5 L (1.0-4.8) k/uL Glucose 208 H (74-99) mg/dL POC Glucose (mg/dL) 209 H (75-99) mg/dL Thrombosis Risk Factor Assmnt - Choose All That Apply Each Factor Represents 1 point: Obesity (BMI >25) Each Risk Factor Represents 3 Points: Age 75 years or older Other congenital or acquired thrombophilia - If yes, enter type in comment: No Thrombosis Risk Factor Assessment Total Risk Factor Score: 4 Thrombosis Risk Factor Assessment Level: Moderate Risk Assessment and Plan Assessment: Acute COPD exacerbation due to tracheobronchitis Recent history of sepsis secondary to MRSA groin abscess. Discharged on 2018 Diabetes type 2 Hypothyroidism Coronary artery disease with history of stent placement History of [place] History of right hip surgery and revision 6 with postoperative infection Depression Paroxysmal atrial fibrillation on anticoagulation with xarelto. Previous history of smoking History of [place] Plan: Patient will be continued on DuoNeb's and started on methylprednisolone 60 mg every 6 hourly. Continue with home medications and insulin sliding scale. Continue with vancomycin due to recent MRSA wound infection and also started on levofloxacin. Pulmonary and ID is on board. Further recommendations based on the clinical course. Time with Patient: Greater than 30
[2018-06-17 03:12] LABS: Iron Saturation 6.47 (12.00-45.00)
[2018-06-17 04:44] LABS: Hemoglobin A1C 5.7 % (4.0-6.0)
[2018-06-17] MEDS: methylPREDNISolone SOD SUCCI 125 MG/2 ML VIAL IV SCH ×4 (05:51→23:41)
[2018-06-17] MEDS: LEVOTHYROXINE 75 MCG TAB PO SCH (05:52)
[2018-06-17 07:09] LABS: Glucose,Whole Blood 183 mg/dL (75-99)
[2018-06-17] MEDS: IPRATROPIUM-ALBUTEROL 3 ML NEB INHALATION SCH ×4 (07:23→19:46)
[2018-06-17] MEDS: BUDESONIDE 0.5 MG/2 ML NEBU INHALATION SCH ×2 (07:23→19:46)
[2018-06-17] MEDS ORDERED: VANCOMYCIN TROUGH DUE 1 EACH MISC MISCELLANE ONE (09:00)
[2018-06-17] MEDS: FAMOTIDINE 20 MG TAB PO SCH ×2 (09:02→21:31)
[2018-06-17] MEDS: SOTALOL 80 MG TAB PO SCH ×2 (09:02→21:32)
[2018-06-17] MEDS: MULTIVITAMINS, THERA 1 EACH TAB PO SCH (09:02)
[2018-06-17] MEDS: TICAGRELOR 90 MG TAB PO SCH ×2 (09:03→21:32)
[2018-06-17] MEDS: VORTIOXETINE HYDROBROMIDE 10 MG TABLET PO SCH (09:03)
[2018-06-17] MEDS: INSULIN ASPART 100 UNIT/ML 1 ML 10 ML VIAL SQ SCH ×4 (09:08→21:31)
[2018-06-17] MEDS: LOSARTAN 50 MG TAB PO SCH (09:08)
[2018-06-17 10:54] LABS: Glucose,Whole Blood 180 mg/dL (75-99)
[2018-06-17] MEDS: MYRBETRIQ 25MG PO SCH (12:08)
[2018-06-17] MEDS: ACETAMINOPHEN TAB 325 MG TAB PO PRN ×2 (12:09→21:32)
[2018-06-17] MEDS: VANCOMYCIN 1,250 MG in SODIUM CHLORIDE 0.9% 250 ML IVPB SCH ×2 (12:10→21:33)
--- NOTE | 2018-06-17 13:26 | P.PN ---
Subjective Progress Note Date: 06/17/18 Principal diagnosis: Acute exacerbation of COPD. This is a 78-year-old the white female patient of Dr. Craig with medical history of diabetes mellitus, hypertension, hypothyroidism, osteoarthritis, previous MRSA infection in the groin wound, VRE urinary tract infection, right hip replacement with subsequent postoperative right hip infection, wearing removal of hardware and placement of a spacer, depression. Patient was recently hospitalized for right groin abscess, went incision and drainage of the abscess, he was treated with clindamycin initially, and the wound culture was positive for MRSA and antibiotic was switched to vancomycin. Patient was discharged to rehab facility on Bactrim, wound VAC was placed a week ago. Today on 06/16/2018 patient was brought into the emergency department from the [facility] for evaluation of shortness of breath, cough, chest congestion, thick and green phlegm production. She states her symptoms started yesterday, patient is a poor historian. No fever or chills, no chest pain. Patient does have history of smoking, in the past, she states she quit 50 years ago. Chest x-ray showed no active cardiopulmonary disease. Lab work showed white blood cell count of 4.5, hemoglobin of 9.3, electrolytes and renal profile were within normal limits. Fluids a screen was negative. She has been afebrile, in the hospital, she is currently on 2 L per nasal cannula pulse ox is 93%. Lung sounds are positive for diffuse wheezes throughout the lung keen. He seen her in consultation for acute exacerbation of COPD with purulent tracheobronchitis. The patient is seen again today 06/17/2018 in follow-up on the regular medical floor. She is awake and alert in no acute distress. He is breathing easier today as compared to yesterday. Currently maintaining O2 saturations in the 90s on room air. She's less bronchospastic. She's afebrile. Hemodynamically stable. Sputum culture pending. Influenza screen negative. Remains on vancomycin and Levaquin. Continued on bronchodilators and IV Solu-Medrol. Objective - Vital Signs Vital signs: Vital Signs Temp 97.6 F 06/17/18 05:00 Pulse 74 06/17/18 11:44 Resp 18 06/17/18 08:40 BP 149/62 06/17/18 05:00 Pulse Ox 99 06/17/18 05:00 Intake & Output 06/16/18 06/17/18 06/17/18 18:59 06:59 18:59 Intake Total 850 350 Balance 850 350 Weight 90.718 kg Intake: Intake, IV Titration 250 250 Amount Vancomycin 1,250 mg In 250 250 Sodium Chloride 0.9% 250 ml @ 125 mls/hr IVPB Q24HR@1000,2200 ON LICENSE OF [facility] Rx#: [id number] Oral 600 100 Other: Voiding Method Incontinent Toilet Toilet Diaper Diaper # Voids 2 1 - Exam GENERAL EXAM: Alert, pleasant, 78-year-old white female, comfortable in no apparent distress. On room air. HEAD: Normocephalic/atraumatic. EYES: Normal reaction of pupils, equal size. Conjunctiva pink, sclera white. NOSE: Clear with pink turbinates. THROAT: No erythema or exudates. NECK: No masses, no JVD, no thyroid enlargement, no adenopathy. CHEST: No chest wall deformity. Symmetrical expansion. LUNGS: Equal air entry with bilateral end expiratory wheeze. Diminished CVS: Regular rate and rhythm, normal S1 and S2, no gallops, no murmurs, no rubs ABDOMEN: Soft, nontender. No hepatosplenomegaly, normal bowel sounds, no guarding or rigidity. EXTREMITIES: Wound VAC to right groin. No clubbing, no edema, no cyanosis, 2+ pulses and upper and lower extremities. MUSCULOSKELETAL: Muscle strength and tone normal. SPINE: No scoliosis or deformity SKIN: No rashes CENTRAL NERVOUS SYSTEM: Alert and oriented -3. No focal deficits, tone is normal in all 4 extremities. PSYCHIATRIC: Alert and oriented -3. Appropriate affect. Intact judgment and insight. - Labs CBC & Chem 7: 06/16/18 01:15 06/16/18 01:15 Labs: Abnormal Lab Results - Last 24 Hours (Table) 06/16/18 06/16/18 06/17/18 Range/Units 01:15 19:56 07:08 POC Glucose (mg/dL) 212 H 183 H (75-99) mg/dL Iron 18 L (50-170) ug/dL Iron Saturation 6.47 L (12.00-45.00) 06/17/18 Range/Units 10:53 POC Glucose (mg/dL) 180 H (75-99) mg/dL Iron (50-170) ug/dL Iron Saturation (12.00-45.00) Microbiology - Last 24 Hours (Table) 06/16/18 Unknown Gram Stain - Preliminary Sputum Sputum Culture - Preliminary Assessment and Plan Assessment: Assessment: #1. Acute exacerbation of chronic obstructive pulmonary disease complicated by tracheobronchitis #2. Right groin abscess, wound cultures positive for MRSA, status post incision and drainage and placement of a wound VAC a week ago. She was hospitalized and discharged to an [facility] on 06/07/2018 #3. Diabetes mellitus type 2 #4. Hypertension #5. Osteoarthritis #6. Venous episodes of pneumonia #7. Hypothyroidism #8. History of vancomycin-resistant enterococcus urinary tract infection #9. History of right hip replacement, and revision 6 with postoperative infection #10. Remote history of smoking #11. Coronary artery disease with previous stent placement #12. History of myocardial infarction Plan: The patient was seen and evaluated by Dr. Scherer. Continue with her current treatment plan. We'll continue to follow. I, the cosigning physician, performed a history & physical examination of the patient. Lungs sounds with end expiratory wheeze, diminished. Maintaining good O2 saturations in the 90s on room air. I discussed the assessment and plan of care with my nurse practitioner, Virginie Pereyra. I attest to the above note as dictated by her.
[2018-06-17] MEDS: LEVOFLOXACIN 750 MG TAB PO SCH (17:11)
[2018-06-17] MEDS: RIVAROXABAN 15 MG TAB PO SCH (17:12)
[2018-06-17 17:29] LABS: Glucose,Whole Blood 160 mg/dL (75-99)
[2018-06-17 20:06] LABS: Glucose,Whole Blood 207 mg/dL (75-99)
[2018-06-17] MEDS: GABAPENTIN 300 MG CAP PO SCH (21:31)
[2018-06-17] MEDS: PRAVASTATIN SODIUM 80 MG TAB PO SCH (21:32)
--- NOTE | 2018-06-17 22:36 | PN ---
PROGRESS NOTE DATE OF SERVICE: 06/17/2018 REASON FOR FOLLOWUP: Right groin wound with a recent history of MRSA infection. INTERVAL HISTORY: The patient is currently afebrile. She is breathing more comfortably. The patient continues to have a cough, bringing up some yellowish sputum. No hemoptysis. No chest pain. No abdominal pain or any diarrhea. Denies any pain to the right groin area. PHYSICAL EXAMINATION: Blood pressure is 157/76 with a pulse of 75, temperature 97.9. She is 92% on room air. General description is an elderly female lying in bed in no distress. RESPIRATORY SYSTEM: Unlabored breathing. Clear to auscultation anteriorly. HEART: S1, S2. Regular rate and rhythm. ABDOMEN: Soft. No tenderness. Right groin wound is currently covered with a wound V.A.C. LABS: No new labs have been obtained today. DIAGNOSTIC IMPRESSION AND PLAN: Patient with right groin wound in this patient who did have surgical drainage of her abscess, culture growing methicillin-resistant Staphylococcus aeruginosa. Patient at this time will continue with IV vancomycin while watching her kidney function and vancomycin trough closely. Local care to continue with the wound V.A.C. and will re- evaluate the wound tomorrow at the time of dressing changes. MMODL / IJN: [id number] /
[2018-06-18] MEDS: LEVOTHYROXINE 75 MCG TAB PO SCH (05:28)
[2018-06-18] MEDS: methylPREDNISolone SOD SUCCI 125 MG/2 ML VIAL IV SCH ×2 (05:28→12:26)
[2018-06-18] MEDS: ACETAMINOPHEN TAB 325 MG TAB PO PRN ×2 (05:30→15:03)
[2018-06-18 06:56] LABS: Glucose,Whole Blood 185 mg/dL (75-99)
[2018-06-18] MEDS: INSULIN ASPART 100 UNIT/ML 1 ML 10 ML VIAL SQ SCH ×2 (07:33→12:25)
[2018-06-18] MEDS: MYRBETRIQ 25MG PO SCH (07:34)
[2018-06-18] MEDS: ASPIRIN 81 MG PO SCH (07:34)
[2018-06-18] MEDS: FAMOTIDINE 20 MG TAB PO SCH (07:34)
[2018-06-18] MEDS: MULTIVITAMINS, THERA 1 EACH TAB PO SCH (07:34)
[2018-06-18] MEDS: LOSARTAN 50 MG TAB PO SCH (07:34)
[2018-06-18] MEDS: SOTALOL 80 MG TAB PO SCH (07:35)
[2018-06-18] MEDS: TICAGRELOR 90 MG TAB PO SCH (07:35)
[2018-06-18] MEDS: VORTIOXETINE HYDROBROMIDE 10 MG TABLET PO SCH (07:36)
[2018-06-18 08:28] LABS: Anion Gap 4 mmol/L; Blood Urea Nitrogen 27 mg/dL (7-17); Calcium 9.8 mg/dL (8.4-10.2); Carbon Dioxide 27 mmol/L (22-30); Chloride 108 mmol/L (98-107); Glucose 178 mg/dL (74-99); Potassium 3.6 mmol/L (3.5-5.1); Sodium 139 mmol/L (137-145)
[2018-06-18] MEDS: IPRATROPIUM-ALBUTEROL 3 ML NEB INHALATION SCH ×3 (08:56→15:57)
[2018-06-18] MEDS: BUDESONIDE 0.5 MG/2 ML NEBU INHALATION SCH (08:56)
[2018-06-18] MEDS: VANCOMYCIN 1,250 MG in SODIUM CHLORIDE 0.9% 250 ML IVPB SCH (11:08)
[2018-06-18 11:13] LABS: Glucose,Whole Blood 175 mg/dL (75-99)
[2018-06-18 12:12] VITALS: BP 161/98; RESP 18; TEMP 97.3
--- NOTE | 2018-06-18 13:39 | P.PN ---
Subjective Progress Note Date: 06/18/18 Principal diagnosis: Acute exacerbation of COPD. This is a 78-year-old the white female patient of Dr. Craig with medical history of diabetes mellitus, hypertension, hypothyroidism, osteoarthritis, previous MRSA infection in the groin wound, VRE urinary tract infection, right hip replacement with subsequent postoperative right hip infection, wearing removal of hardware and placement of a spacer, depression. Patient was recently hospitalized for right groin abscess, went incision and drainage of the abscess, he was treated with clindamycin initially, and the wound culture was positive for MRSA and antibiotic was switched to vancomycin. Patient was discharged to rehab facility on Bactrim, wound VAC was placed a week ago. Today on 06/16/2018 patient was brought into the emergency department from the [facility] for evaluation of shortness of breath, cough, chest congestion, thick and green phlegm production. She states her symptoms started yesterday, patient is a poor historian. No fever or chills, no chest pain. Patient does have history of smoking, in the past, she states she quit 50 years ago. Chest x-ray showed no active cardiopulmonary disease. Lab work showed white blood cell count of 4.5, hemoglobin of 9.3, electrolytes and renal profile were within normal limits. Fluids a screen was negative. She has been afebrile, in the hospital, she is currently on 2 L per nasal cannula pulse ox is 93%. Lung sounds are positive for diffuse wheezes throughout the lung keen. He seen her in consultation for acute exacerbation of COPD with purulent tracheobronchitis. The patient is seen again today 06/17/2018 in follow-up on the regular medical floor. She is awake and alert in no acute distress. He is breathing easier today as compared to yesterday. Currently maintaining O2 saturations in the 90s on room air. She's less bronchospastic. She's afebrile. Hemodynamically stable. Sputum culture pending. Influenza screen negative. Remains on vancomycin and Levaquin. Continued on bronchodilators and IV Solu-Medrol. The patient is seen today 11/16/2017 in follow-up on the regular medical floor. She is currently sitting up in a chair at the bedside. She is awake and alert in no acute distress. She is breathing easier today as compared to yesterday. Maintaining good O2 saturations in the mid 90s on room air. She's afebrile. Hemodynamically stable. Sputum culture pending. Creatinine 0.74. She remains on vancomycin, Levaquin, bronchodilators and IV Solu-Medrol. Objective - Vital Signs Vital signs: Vital Signs Temp 97.3 F L 06/18/18 11:58 Pulse 82 06/18/18 12:16 Resp 18 06/18/18 11:58 BP 161/98 06/18/18 11:58 Pulse Ox 96 06/18/18 11:58 Intake & Output 06/17/18 06/18/18 06/18/18 18:59 06:59 18:59 Intake Total 410 840 Balance 410 840 Intake: Intake, IV Titration 250 250 Amount Vancomycin 1,250 mg In 250 250 Sodium Chloride 0.9% 250 ml @ 125 mls/hr IVPB Q24HR@1000,2200 [facility] Rx#: [id number] Oral 160 590 Other: Voiding Method Toilet Toilet Toilet Diaper Diaper Diaper # Voids 2 2 1 - Exam GENERAL EXAM: Alert, comfortable in no apparent distress. On room air. HEAD: Normocephalic/atraumatic. EYES: Normal reaction of pupils, equal size. Conjunctiva pink, sclera white. NOSE: Clear with pink turbinates. THROAT: No erythema or exudates. NECK: No masses, no JVD, no thyroid enlargement, no adenopathy. CHEST: No chest wall deformity. Symmetrical expansion. LUNGS: Equal air entry with bilateral end expiratory wheeze. Diminished CVS: Regular rate and rhythm, normal S1 and S2, no gallops, no murmurs, no rubs ABDOMEN: Soft, nontender. No hepatosplenomegaly, normal bowel sounds, no guarding or rigidity. EXTREMITIES: Wound VAC to right groin. No clubbing, no edema, no cyanosis, 2+ pulses and upper and lower extremities. MUSCULOSKELETAL: Muscle strength and tone normal. SPINE: No scoliosis or deformity SKIN: No rashes CENTRAL NERVOUS SYSTEM: Alert and oriented -3. No focal deficits, tone is normal in all 4 extremities. PSYCHIATRIC: Alert and oriented -3. Appropriate affect. Intact judgment and insight. - Labs CBC & Chem 7: 06/16/18 01:15 06/18/18 07:16 Labs: Abnormal Lab Results - Last 24 Hours (Table) 06/17/18 06/17/18 06/18/18 Range/Units 17:28 20:05 06:53 Chloride (98-107) mmol/L BUN (7-17) mg/dL Glucose (74-99) mg/dL POC Glucose (mg/dL) 160 H 207 H 185 H (75-99) mg/dL 06/18/18 06/18/18 Range/Units 07:16 11:11 Chloride 108 H (98-107) mmol/L BUN 27 H (7-17) mg/dL Glucose 178 H (74-99) mg/dL POC Glucose (mg/dL) 175 H (75-99) mg/dL Assessment and Plan Assessment: Assessment: #1. Acute exacerbation of chronic obstructive pulmonary disease complicated by tracheobronchitis #2. Right groin abscess, wound cultures positive for MRSA, status post incision and drainage and placement of a wound VAC a week ago. She was hospitalized and discharged to an [facility] on 06/07/2018 #3. Diabetes mellitus type 2 #4. Hypertension #5. Osteoarthritis #6. Venous episodes of pneumonia #7. Hypothyroidism #8. History of vancomycin-resistant enterococcus urinary tract infection #9. History of right hip replacement, and revision 6 with postoperative infection #10. Remote history of smoking #11. Coronary artery disease with previous stent placement #12. History of myocardial infarction Plan: The patient was seen and evaluated by Dr. Scherer. Maintaining good O2 saturations in the 90s on room air now. She's been afebrile. Continue with her current treatment plan. Upon discharge she'll complete a course of antibiotics, complete a prednisone burst and taper. I, the cosigning physician, performed a history & physical examination of the patient. Lungs sounds with end expiratory wheeze, diminished. Maintaining good O2 saturations in the 90s on room air. I discussed the assessment and plan of care with my nurse practitioner, Virginie Pereyra. I attest to the above note as dictated by her.
[2018-06-18] MEDS: LEVOFLOXACIN 750 MG TAB PO SCH (15:03)
--- NOTE | 2018-06-18 15:53 | P.PN ---
Subjective Progress Note Date: 06/17/18 Principal diagnosis: Acute COPD exacerbation Patient is a 78-year-old female with a known history of hypertension, hyperlipidemia, diabetes type 2 [id number], osteoarthritis, hypothyroidism and recent right groin infection/abscess status post I&D with wound cultures growing MRSA, currently on vancomycin IV at [facility] was brought to the hospital due to worsening shortness of breath and wheezing. Patient also having cough congestion and sputum production whitish to green in color. Patient does not have any fever or chills. No commerce of chest pain. No nausea vomiting or abdominal pain. No diarrhea. Chest x-ray showed no acute cardio pulmonary process EKG showed accelerated junctional rhythm. No leukocytosis. 06/17/2018 Patient says that her breathing is better today. Not to the baseline yet. Otherwise patient is being continued on DuoNeb's and IV steroids. Continue the antibiotics. Patient is currently on wound VAC as well. Anticipate discharge in next 24 hours. With mmore clinicalimprovement. All other review of systems negative except the above Current medications reviewed Objective - Vital Signs Vital signs: Vital Signs Temp 97.9 F 06/17/18 13:41 Pulse 75 06/17/18 13:41 Resp 16 06/17/18 13:41 BP 157/76 06/17/18 13:41 Pulse Ox 92 L 06/17/18 13:41 Intake & Output 06/16/18 06/17/18 06/17/18 18:59 06:59 18:59 Intake Total 850 350 410 Balance 850 350 410 Weight 90.718 kg Intake: Intake, IV Titration 250 250 250 Amount Vancomycin 1,250 mg In 250 250 250 Sodium Chloride 0.9% 250 ml @ 125 mls/hr IVPB Q24HR@1000,2200 [facility] Rx#: [id number] Oral 600 100 160 Other: Voiding Method Incontinent Toilet Toilet Diaper Diaper # Voids 2 1 2 - Exam PHYSICAL EXAMINATION: Patient is lying in the bed comfortably, no acute distress, awake alert and oriented.. HEENT: Normocephalic. Neck is supple. Pupils reactive. Nostrils clear. Oral cavity is moist. Ears reveal no drainage. Neck reveals no JVD, carotid bruits, or thyromegaly. CHEST EXAMINATION: Trachea is central. Symmetrical expansion. Bilateral diffuse rhonchi positive. No wheezing noted. Air entry improved.. CARDIAC: Normal S1, S2 with no gallops. No murmurs ABDOMEN: Soft. Bowel sounds normal. No organomegaly. No abdominal bruits. Right groin wound VAC in place. Extremities: reveal no edema. No clubbing or cyanosis Neurologically awake, alert, oriented x3 with well-coordinated movements. No focal deficits noted Skin: No rash or skin lesions. Psychiatric: Coperative. Nonsuicidal Musculoskeletal: No joint swelling or deformity. Normal range of motion. - Labs CBC & Chem 7: 06/16/18 01:15 06/18/18 07:16 Labs: Abnormal Lab Results - Last 24 Hours (Table) 06/16/18 06/16/18 06/17/18 Range/Units 01:15 19:56 07:08 POC Glucose (mg/dL) 212 H 183 H (75-99) mg/dL Iron 18 L (50-170) ug/dL Iron Saturation 6.47 L (12.00-45.00) 06/17/18 Range/Units 10:53 POC Glucose (mg/dL) 180 H (75-99) mg/dL Iron (50-170) ug/dL Iron Saturation (12.00-45.00) Microbiology - Last 24 Hours (Table) 06/16/18 Unknown Gram Stain - Preliminary Sputum Sputum Culture - Preliminary Assessment and Plan Assessment: Acute COPD exacerbation due to tracheobronchitis Recent history of sepsis secondary to MRSA groin abscess. Discharged on 2018 Diabetes type 2 Hypothyroidism Coronary artery disease with history of stent placement in 0 2018 History of [place] History of right hip surgery and revision 6 with postoperative infection Depression Paroxysmal atrial fibrillation on anticoagulation with xarelto. Previous history of smoking History of [place] Plan: Patient will be continued on DuoNeb's and started on methylprednisolone 60 mg every 6 hourly. Continue with home medications and insulin sliding scale. Continue with vancomycin due to recent MRSA wound infection and also started on levofloxacin. Pulmonary and ID is on board. Further recommendations based on the clinical course. Time with Patient: Greater than 30
--- NOTE | 2018-06-18 16:07 | P.DS ---
Providers Date of admission: 06/18/18 14:18 Expected date of discharge: 06/18/18 Attending physician: Awilda Vaughan Consults: 06/16/18 09:33 Consult Physician Routine Consulting Provider: Cindy Bella Consult Reason/Comments: wound care, IV abx Do you want consulting provider notified?: Yes 06/16/18 14:06 Consult Physician Routine Consulting Provider: Ovi Hernandez Consult Reason/Comments: SOB, resp distress Do you want consulting provider notified?: Yes Primary care physician: Maryann Craig Hospital Course: Discharge diagnosis Acute COPD exacerbation due to tracheobronchitis Recent history of sepsis secondary to MRSA groin abscess. Discharged on 2018 Diabetes type 2 Hypothyroidism Coronary artery disease with history of stent placement in 2017 History of [place] History of right hip surgery and revision 6 with postoperative infection Depression Paroxysmal atrial fibrillation on anticoagulation with xarelto. Previous history of smoking History of [place] Hospital course Patient is a 78-year-old female with a known history of hypertension, hyperlipidemia, diabetes type 2 [id number], osteoarthritis, hypothyroidism and recent right groin infection/abscess status post I&D with wound cultures growing MRSA, currently on vancomycin IV at [facility] was brought to the hospital due to worsening shortness of breath and wheezing. Patient also having cough congestion and sputum production whitish to green in color. Patient does not have any fever or chills. No commerce of chest pain. No nausea vomiting or abdominal pain. No diarrhea. Chest x-ray showed no acute cardio pulmonary process EKG showed accelerated junctional rhythm. No leukocytosis. 06/17/2018 Patient says that her breathing is better today. Not to the baseline yet. Otherwise patient is being continued on DuoNeb's and IV steroids. Continue the antibiotics. Patient is currently on wound VAC as well. Anticipate discharge in next 24 hours. With mmore clinicalimprovement. All other review of systems negative except the above. 06/18/2018 Patient is able to sit in the chair today. Breathing status is much improved and otherwise no acute overnight issues. No fever no chills. Patient can be discharged back to rehab to complete the antibiotic course with vancomycin for recent right groin MRSA abscess. Continue with steroid tapering dose and antibiotics for tracheobronchitis. Patient was seen by pulmonary. Wound VAC will be continued as well. Physical examination Patient is lying in the bed comfortably, no acute distress, awake alert and oriented.. HEENT: Normocephalic. Neck is supple. Pupils reactive. Nostrils clear. Oral cavity is moist. Ears reveal no drainage. Neck reveals no JVD, carotid bruits, or thyromegaly. CHEST EXAMINATION: Trachea is central. Symmetrical expansion. Bibasilar minimal rhonchi positive. No wheezing noted. Air entry improved.. CARDIAC: Normal S1, S2 with no gallops. No murmurs ABDOMEN: Soft. Bowel sounds normal. No organomegaly. No abdominal bruits. Right groin wound VAC in place. Extremities: reveal no edema. No clubbing or cyanosis Neurologically awake, alert, oriented x3 with well-coordinated movements. No focal deficits noted Skin: No rash or skin lesions. Psychiatric: Coperative. Nonsuicidal Musculoskeletal: No joint swelling or deformity. Normal range of motion. Vital Signs 06/18/18 06/18/18 06/18/18 11:58 12:09 12:16 Temperature 97.3 F L Pulse Rate 80 82 Pulse Rate [ 68 Pulse Oximetery ] Respiratory 18 Rate Blood Pressure 161/98 [Right Arm] O2 Sat by Pulse 96 Oximetry Total time taken greater than 35 minutes including 18 minutes for counseling and coordination of care. Patient Condition at Discharge: Fair Plan - Discharge Summary Discharge Rx Participant: Yes New Discharge Prescriptions: New Levofloxacin [Levaquin] 750 mg PO Q24H 3 Days #3 tab predniSONE See Taper PO DIRECTED 12 Days #30 tab Rivaroxaban [Xarelto] 15 mg PO W/SUPPER tab Ticagrelor [Brilinta] 90 mg PO BID tab Continue Levothyroxine Sodium [Synthroid] 150 mcg PO DAILY Pravastatin Sodium [Pravachol] 80 mg PO HS Docusate Sodium [Dulcolax Stool Softener] 100 mg PO DAILY Vortioxetine Hydrobromide [Trintellix] 10 mg PO DAILY Sotalol [Betapace] 80 mg PO BID Multivitamins, Thera [Multivitamin (formulary)] 1 tab PO DAILY Mirabegron [Myrbetriq] 25 mg PO DAILY Gabapentin [Neurontin] 300 mg PO HS Vancomycin 900 mg IVPB BID predniSONE 50 mg PO DAILY Hydrocodone/Acetaminophen [[place] 5-325] 1 tab PO Q6HR PRN PRN Reason: Pain Acetaminophen Tab [Tylenol] 650 mg PO Q6H PRN PRN Reason: Pain Ipratropium-Albuterol Nebulize [Duoneb 0.5 mg-3 mg/3 ml Soln] 3 ml INHALATION RT-Q4H PRN PRN Reason: Shortness Of Breath Budesonide [Pulmicort] 0.5 mg INHALATION RT-BID Ferrous Sulfate [Iron (65 MG Elemental)] 325 mg PO DAILY Famotidine 20 mg PO BID amLODIPine [Norvasc] 5 mg PO DAILY@0900 Losartan [Cozaar] 50 mg PO DAILY@0900 Aspirin [[place] Aspirin EC] 81 mg PO MOWEFR Discontinued Enoxaparin [Lovenox] 40 mg SQ DAILY Discharge Medication List Levothyroxine Sodium [Synthroid] 150 mcg PO DAILY 09/30/13 [History] Docusate Sodium [Dulcolax Stool Softener] 100 mg PO DAILY 11/07/14 [History] Pravastatin Sodium [Pravachol] 80 mg PO HS 11/07/14 [History] Gabapentin [Neurontin] 300 mg PO HS 06/01/18 [History] Mirabegron [Myrbetriq] 25 mg PO DAILY 06/01/18 [History] Multivitamins, Thera [Multivitamin (formulary)] 1 tab PO DAILY 06/01/18 [History ] Sotalol [Betapace] 80 mg PO BID 06/01/18 [History] Vortioxetine Hydrobromide [Trintellix] 10 mg PO DAILY 06/01/18 [History] Acetaminophen Tab [Tylenol] 650 mg PO Q6H PRN 06/16/18 [History] Aspirin [[place] Aspirin EC] 81 mg PO MOWEFR 06/16/18 [History] Budesonide [Pulmicort] 0.5 mg INHALATION RT-BID 06/16/18 [History] Famotidine 20 mg PO BID 06/16/18 [History] Ferrous Sulfate [Iron (65 MG Elemental)] 325 mg PO DAILY 06/16/18 [History] Hydrocodone/Acetaminophen [[place] 5-325] 1 tab PO Q6HR PRN 06/16/18 [History] Ipratropium-Albuterol Nebulize [Duoneb 0.5 mg-3 mg/3 ml Soln] 3 ml INHALATION RT -Q4H PRN 06/16/18 [History] Losartan [Cozaar] 50 mg PO DAILY@0900 06/16/18 [History] Vancomycin 900 mg IVPB BID 06/16/18 [History] amLODIPine [Norvasc] 5 mg PO DAILY@0900 06/16/18 [History] predniSONE 50 mg PO DAILY 06/16/18 [History] Levofloxacin [Levaquin] 750 mg PO Q24H 3 Days #3 tab 06/18/18 [Rx] Rivaroxaban [Xarelto] 15 mg PO W/SUPPER tab 06/18/18 [Rx] Ticagrelor [Brilinta] 90 mg PO BID tab 06/18/18 [Rx] predniSONE See Taper PO DIRECTED 12 Days #30 tab 06/18/18 [Rx] Follow up Appointment(s)/Referral(s): Chastity Mijares MD [STAFF PHYSICIAN] - As Needed Shoaib Lindsey MD [STAFF PHYSICIAN] - 3 Days Activity/Diet/Wound Care/Special Instructions: Wound vac removed prior to d/c from hospital and placed wet to dry, on arrival back to [facility] please place wound vac back on. Discharge Disposition: TRANSFER TO SNF/ECF
[2018-06-18 16:08] VITALS: PULSE 84
--- NOTE | 2018-06-18 22:34 | PN ---
PROGRESS NOTE DATE OF SERVICE: 06/18/2018. REASON FOR FOLLOWUP: Right groin wound and MRSA infection. INTERVAL HISTORY: The patient was seen on rounds early this afternoon. The patient has been afebrile. She is breathing comfortably. Denies significant chest pain. Occasional cough. No abdominal pain. No pain to the right groin area. PHYSICAL EXAMINATION: Blood pressure is 161/98 with a pulse of 68, temperature 97.3. She is 96% on room air. General description is an elderly female up in the chair in no distress. RESPIRATORY SYSTEM: Unlabored breathing. Clear to auscultation anteriorly. HEART: S1, S2. Regular rate and rhythm. ABDOMEN: Soft. No tenderness. Right groin wound is currently dressed up. No obvious drainage on the dressing. LABS: BUN of 27, creatinine 0.74. DIAGNOSTIC IMPRESSION AND PLAN: Patient with a right groin wound from surgical drainage of the abscess. Patient to continue with the vancomycin to finish her course of therapy along with local care with the wound V.A.C. and followup in the wound care center next week. Continue with supportive care. MMODL / IJN: [id number] /
[2018-06-19] MEDS ORDERED: ASPIRIN 81 MG PO SCH (09:00)
== END 2018-06-18 16:52 | DRG 191 ==
LOC: EC 00:46 → 3NMEDONC 02:58 → OBSVTOIN 06-18 14:18
PROVIDERS: ADMIT Hospitalist; ATTEND Hospitalist
DX: J44.0 Chronic obstructive pulmonary disease with (acute) lower respiratory infection (principal); L02.214 Cutaneous abscess of groin; J44.1 Chronic obstructive pulmonary disease with (acute) exacerbation; B95.62 Methicillin resistant Staphylococcus aureus infection as the cause of diseases classified elsewhere; E03.9 Hypothyroidism, unspecified; J20.9 Acute bronchitis, unspecified; E11.9 Type 2 diabetes mellitus without complications; E78.5 Hyperlipidemia, unspecified; F32.9 Major depressive disorder, single episode, unspecified; I10 Essential (primary) hypertension; I25.10 Atherosclerotic heart disease of native coronary artery without angina pectoris; I48.0 Paroxysmal atrial fibrillation; M19.90 Unspecified osteoarthritis, unspecified site; Z96.641 Presence of right artificial hip joint; M81.0 Age-related osteoporosis without current pathological fracture; Z79.01 Long term (current) use of anticoagulants; I25.2 Old myocardial infarction; Z79.02 Long term (current) use of antithrombotics/antiplatelets; Z79.4 Long term (current) use of insulin; Z79.82 Long term (current) use of aspirin; Z79.890 Hormone replacement therapy; Z79.899 Other long term (current) drug therapy; Z80.9 Family history of malignant neoplasm, unspecified; Z82.49 Family history of ischemic heart disease and other diseases of the circulatory system; Z86.14 Personal history of Methicillin resistant Staphylococcus aureus infection; Z87.891 Personal history of nicotine dependence; Z88.2 Allergy status to sulfonamides; Z90.710 Acquired absence of both cervix and uterus; Z95.5 Presence of coronary angioplasty implant and graft; Z88.1 Allergy status to other antibiotic agents; Z88.5 Allergy status to narcotic agent; Z88.8 Allergy status to other drugs, medicaments and biological substances; Z91.018 Allergy to other foods
CPT/HCPCS: 36415; 71046; 80048; 80202; 82728; 83036; 83540; 83550; 85025; 87070; 87205; 87502; 93005; 94640; 99285

== ENCOUNTER 2018-06-28 14:17 | Emergency (ER) | payer MEDICARE, BC ==
--- NOTE | 2018-06-28 16:05 | ED ---
General Adult HPI - General Chief complaint: Recheck/Abnormal Lab/Rx Stated complaint: Weakness Time Seen by Provider: 06/28/18 15:31 Source: patient, family, RN notes reviewed Mode of arrival: wheelchair Limitations: no limitations - History of Present Illness Initial comments: Patient is a pleasant 70-year-old female presenting to the emergency department with family with complaints of anemia. Family states they've been waiting all day for transfer. Blood work was done today showing a hemoglobin of 6.6. Patient did have bleeding from her wound site of her right lower abdomen. Patient did have I&D followed by wound VAC placed. Patient has not had recent bleeding. Patient does admit to having a little bit of fatigue with exertion. Family states they're here for a blood transfusion. Patient denies any other areas of bleeding. No rectal bleeding or black tarry stools. - Related Data Home Medications Medication Instructions Recorded Confirmed Levothyroxine Sodium [Synthroid] 150 mcg PO DAILY 09/30/13 06/28/18 Docusate Sodium [Dulcolax Stool 100 mg PO DAILY 11/07/14 06/28/18 Softener] Pravastatin Sodium [Pravachol] 80 mg PO HS 11/07/14 06/28/18 Gabapentin [Neurontin] 300 mg PO HS 06/01/18 06/28/18 Mirabegron [Myrbetriq] 25 mg PO DAILY 06/01/18 06/28/18 Multivitamins, Thera [Multivitamin 1 tab PO DAILY 06/01/18 06/28/18 (formulary)] Sotalol [Betapace] 80 mg PO BID 06/01/18 06/28/18 Vortioxetine Hydrobromide 10 mg PO DAILY 06/01/18 06/28/18 [Trintellix] Acetaminophen Tab [Tylenol] 650 mg PO Q6H PRN 06/16/18 06/28/18 Famotidine 20 mg PO BID 06/16/18 06/28/18 Ferrous Sulfate [Iron (65 MG 325 mg PO DAILY 06/16/18 06/28/18 Elemental)] Hydrocodone/Acetaminophen [[place] 1 tab PO Q6HR PRN 06/16/18 06/28/18 5-325] Ipratropium-Albuterol Nebulize 3 ml INHALATION RT-Q4H PRN 06/16/18 06/28/18 [Duoneb 0.5 mg-3 mg/3 ml Soln] amLODIPine [Norvasc] 5 mg PO DAILY@0900 06/16/18 06/28/18 Aspirin [[place] Aspirin EC] 81 mg PO DAILY 06/28/18 06/28/18 Cyanocobalamin (Vitamin B-12) 5,000 mcg PO DAILY 06/28/18 06/28/18 [Vitamin B-12] Feosol (Carbonyl Iron ) 20 mg PO BID 06/28/18 06/28/18 Losartan Potassium 100 mg PO DAILY 06/28/18 06/28/18 Potassium Chloride 10 meq PO DAILY 06/28/18 06/28/18 Previous Rx's Medication Instructions Recorded Rivaroxaban [Xarelto] 15 mg PO W/SUPPER tab 06/18/18 Ticagrelor [Brilinta] 90 mg PO BID tab 06/18/18 Allergies Allergy/AdvReac Type Severity Reaction Status Date / Time atorvastatin calcium Allergy MUSCLE Verified 06/28/18 16:11 [From Lipitor] ACHES azithromycin Allergy Rash/Hives Verified 06/28/18 16:11 [From Zithromax Z-Chau] codeine Allergy Unknown Verified 06/28/18 16:11 fluticasone propionate Allergy Unknown Verified 06/28/18 16:11 [From Flonase] hydrochlorothiazide Allergy Unknown Verified 06/28/18 16:11 [From Dyazide] lincomycin HCl Allergy Unknown Verified 06/28/18 16:11 [From Lincocin] meperidine HCl [From Demerol] Allergy Unknown Verified 06/28/18 16:11 metronidazole [From Flagyl] Allergy Unknown Verified 06/28/18 16:11 Metronidazole HCl Allergy Unknown Verified 06/28/18 16:11 [From Flagyl] Penicillins Allergy Unknown Verified 06/28/18 16:11 rosuvastatin calcium Allergy MUSCLE Verified 06/28/18 16:11 [From Crestor] ACHES Sulfa (Sulfonamide Allergy Unknown Verified 06/28/18 16:11 Antibiotics) tetracycline [Tetracycline] Allergy Unknown Verified 06/28/18 16:11 triamterene [From Dyazide] Allergy Unknown Verified 06/28/18 16:11 watermelon Allergy Swelling Uncoded 06/16/18 01:01 Review of Systems ROS Statement: Those systems with pertinent positive or pertinent negative responses have been documented in the HPI. ROS Other: All systems not noted in ROS Statement are negative. Constitutional: Denies: fever Eyes: Denies: eye pain ENT: Denies: ear pain Respiratory: Denies: cough Cardiovascular: Denies: chest pain Endocrine: Reports: fatigue Gastrointestinal: Denies: abdominal pain, hematemesis, melena, hematochezia Genitourinary: Denies: dysuria Musculoskeletal: Denies: back pain Skin: Denies: rash Neurological: Denies: weakness Past Medical History Past Medical History: Diabetes Mellitus, Hyperlipidemia, Hypertension, Osteoarthritis (OA), Pneumonia, Thyroid Disorder Additional Past Medical History / Comment(s): Right hip infection, 11-07-14 SHINGLES TO RT FACE/EYE. 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 Past Anesthesia/Blood Transfusion Reactions: No Reported Reaction Past Psychological History: Depression Smoking Status: Former smoker Past Alcohol Use History: None Reported Past Drug Use History: None Reported - Past Family History Father History Unknown: Yes Family Medical History: Hypertension Additional Family Medical History / Comment(s): BRAIN TUMOR Mother Family Medical History: Cancer General Exam Limitations: no limitations General appearance: alert, in no apparent distress Head exam: Present: atraumatic Eye exam: Present: other (Pelvic conjunctival) ENT exam: Present: normal oropharynx Neck exam: Present: normal inspection Respiratory exam: Present: normal lung sounds bilaterally Cardiovascular Exam: Present: regular rate, normal rhythm GI/Abdominal exam: Present: soft, normal bowel sounds. Absent: distended, tenderness, guarding, rebound, rigid Extremities exam: Present: normal inspection Neurological exam: Present: alert Psychiatric exam: Present: normal affect, normal mood Skin exam: Present: normal color, other (Wound VAC right lower abdomen without any bleeding. Area covered with clear Tegaderm dressing, approximately 3 x 2 cm.). Absent: rash Course Vital Signs 06/28/18 06/28/18 06/28/18 14:38 16:35 18:01 Temperature 97.9 F 98.1 F Pulse Rate 76 75 75 Respiratory 18 18 18 Rate Blood Pressure 194/94 145/83 136/52 O2 Sat by Pulse 96 97 98 Oximetry 06/28/18 19:34 Temperature 98.1 F Pulse Rate 77 Respiratory 20 Rate Blood Pressure 154/66 O2 Sat by Pulse 97 Oximetry - Reevaluation(s) Reevaluation #1: 06/28/18 16:30 Case was discussed with Dr. Clarke, covering for Dr. Mijares who recommends 1 unit of blood and if this can be done with the next couple of hours patient can be discharged back to nursing facility. Medical Decision Making - Lab Data Result diagrams: 06/28/18 16:06 06/28/18 16:06 Lab Results 06/28/18 06/28/18 06/28/18 Range/Units 16:06 16:06 16:06 WBC 12.6 H (3.8-10.6) k/uL RBC 2.84 L (3.80-5.40) m/uL Hgb 7.4 L D (11.4-16.0) gm/dL Hct 24.7 L (34.0-46.0) % MCV 86.9 (80.0-100.0) fL MCH 26.0 (25.0-35.0) pg MCHC 29.9 L (31.0-37.0) g/dL RDW 19.0 H (11.5-15.5) % Plt Count 362 (150-450) k/uL Neutrophils % 87 % Lymphocytes % 7 % Monocytes % 5 % Eosinophils % 1 % Basophils % 0 % Neutrophils # 11.0 H (1.3-7.7) k/uL Lymphocytes # 0.8 L (1.0-4.8) k/uL Monocytes # 0.6 (0-1.0) k/uL Eosinophils # 0.1 (0-0.7) k/uL Basophils # 0.0 (0-0.2) k/uL Hypochromasia Marked Poikilocytosis Slight Anisocytosis Slight PT (9.0-12.0) sec INR (<1.2) APTT (22.0-30.0) sec Sodium 138 (137-145) mmol/L Potassium 4.8 (3.5-5.1) mmol/L Chloride 108 H (98-107) mmol/L Carbon Dioxide 24 (22-30) mmol/L Anion Gap 6 mmol/L BUN 17 (7-17) mg/dL Creatinine 0.68 (0.52-1.04) mg/dL Est GFR (CKD-EPI)AfAm >90 (>60 ml/min/1.73 sqM) Est GFR (CKD-EPI)NonAf 84 (>60 ml/min/1.73 sqM) Glucose 268 H (74-99) mg/dL Calcium 9.5 (8.4-10.2) mg/dL Total Bilirubin 0.8 (0.2-1.3) mg/dL AST 21 (14-36) U/L ALT 19 (9-52) U/L Alkaline Phosphatase 77 (38-126) U/L Total Protein 5.7 L (6.3-8.2) g/dL Albumin 3.4 L (3.5-5.0) g/dL Blood Type O Positive Blood Type Confirm Blood Type Recheck CABO Indicated Antibody Screen NEGATIVE Crossmatch See Detail Spec Expiration Date 07/01/2018230506/28/18 06/28/18 Range/Units 16:06 17:30 WBC (3.8-10.6) k/uL RBC (3.80-5.40) m/uL Hgb (11.4-16.0) gm/dL Hct (34.0-46.0) % MCV (80.0-100.0) fL MCH (25.0-35.0) pg MCHC (31.0-37.0) g/dL RDW (11.5-15.5) % Plt Count (150-450) k/uL Neutrophils % % Lymphocytes % % Monocytes % % Eosinophils % % Basophils % % Neutrophils # (1.3-7.7) k/uL Lymphocytes # (1.0-4.8) k/uL Monocytes # (0-1.0) k/uL Eosinophils # (0-0.7) k/uL Basophils # (0-0.2) k/uL Hypochromasia Poikilocytosis Anisocytosis PT 9.9 (9.0-12.0) sec INR 0.9 (<1.2) APTT 23.1 (22.0-30.0) sec Sodium (137-145) mmol/L Potassium (3.5-5.1) mmol/L Chloride (98-107) mmol/L Carbon Dioxide (22-30) mmol/L Anion Gap mmol/L BUN (7-17) mg/dL Creatinine (0.52-1.04) mg/dL Est GFR (CKD-EPI)AfAm (>60 ml/min/1.73 sqM) Est GFR (CKD-EPI)NonAf (>60 ml/min/1.73 sqM) Glucose (74-99) mg/dL Calcium (8.4-10.2) mg/dL Total Bilirubin (0.2-1.3) mg/dL AST (14-36) U/L ALT (9-52) U/L Alkaline Phosphatase (38-126) U/L Total Protein (6.3-8.2) g/dL Albumin (3.5-5.0) g/dL Blood Type Blood Type Confirm O Positive Blood Type Recheck Antibody Screen Crossmatch Spec Expiration Date Disposition Clinical Impression: Anemia Disposition: HOME SELF-CARE Condition: Stable Instructions (If sedation given, give patient instructions): Anemia (ED) Additional Instructions: Please follow-up with primary care physician in the next couple days for recheck. Please have blood levels rechecked within the next couple of days. Return for weakness, fatigue, shortness of breath, low hemoglobin level, bleeding, worsening or changing symptoms or other concerns Is patient prescribed a controlled substance at d/c from ED?: No Referrals: Chastity Mijares MD [Primary Care Provider] - 1-2 days Time of Disposition: 19:36
[2018-06-28 16:34] LABS: Anisocytosis Slight; Basophils % (A) 0 %; Eosinophils # (A) 0.1 k/uL (0-0.7); Eosinophils % (A) 1 %; HCT 24.7 % (34.0-46.0); Hypochromasia Marked; Lymphocytes # (A) 0.8 k/uL (1.0-4.8); Lymphocytes % (A) 7 %; MCHC 29.9 g/dL (31.0-37.0); MCV 86.9 fL (80.0-100.0); Mean Platelet Volume 7.2; Monocytes # (A) 0.6 k/uL (0-1.0); Monocytes % (A) 5 %; Neutrophils % (A) 87 %; Platelet Count 362 k/uL (150-450); Poikilocytosis Slight; RBC 2.84 m/uL (3.80-5.40); WBC 12.6 k/uL (3.8-10.6)
[2018-06-28 16:36] LABS: HGB 7.4 gm/dL (11.4-16.0)
[2018-06-28 16:40] LABS: ALT 19 U/L (9-52); AST 21 U/L (14-36); Albumin 3.4 g/dL (3.5-5.0); Alkaline Phosphatase 77 U/L (38-126); Anion Gap 6 mmol/L; Blood Urea Nitrogen 17 mg/dL (7-17); Calcium 9.5 mg/dL (8.4-10.2); Carbon Dioxide 24 mmol/L (22-30); Chloride 108 mmol/L (98-107); Glucose 268 mg/dL (74-99); Potassium 4.8 mmol/L (3.5-5.1); Sodium 138 mmol/L (137-145); Total Bilirubin 0.8 mg/dL (0.2-1.3); Total Protein 5.7 g/dL (6.3-8.2)
[2018-06-28 16:45] LABS: INR 0.9 (<1.2); Partial Thromboplastin Time 23.1 sec (22.0-30.0); Prothrombin Time 9.9 sec (9.0-12.0)
[2018-06-28] MEDS ORDERED: LORazepam 2 MG/ML INJ IV STA (19:20)
[2018-06-28 21:56] VITALS: TEMP 97.8
[2018-06-28 22:46] VITALS: BP 141/99; PULSE 73; RESP 20
== END 2018-06-28 22:30 | disposition home or self-care (01) ==
LOC: EC 14:17
DX: D64.9 Anemia, unspecified (principal); S31.103A Unspecified open wound of abdominal wall, right lower quadrant without penetration into peritoneal cavity, initial encounter; E78.5 Hyperlipidemia, unspecified; I10 Essential (primary) hypertension; E03.9 Hypothyroidism, unspecified; M19.90 Unspecified osteoarthritis, unspecified site; F32.9 Major depressive disorder, single episode, unspecified; Z86.14 Personal history of Methicillin resistant Staphylococcus aureus infection; Z90.49 Acquired absence of other specified parts of digestive tract; Z96.641 Presence of right artificial hip joint; Z87.891 Personal history of nicotine dependence; Z79.890 Hormone replacement therapy; Z79.82 Long term (current) use of aspirin; Z79.899 Other long term (current) drug therapy; Z88.8 Allergy status to other drugs, medicaments and biological substances; Z88.1 Allergy status to other antibiotic agents; Z88.5 Allergy status to narcotic agent; Z88.0 Allergy status to penicillin; Z88.2 Allergy status to sulfonamides; Z91.018 Allergy to other foods; X58.XXXA Exposure to other specified factors, initial encounter
CPT/HCPCS: 36415; 86900; 86901; 80053; 85025; 85610; 85730; 86850; 86920; 99284; 96374; P9016; J2060

== ENCOUNTER 2018-09-13 20:13 | Observation (INO) | payer MEDICARE, BC ==
[2018-09-13 21:38] LABS: Basophils # (A) 0.1 k/uL (0-0.2); Basophils % (A) 1 %; Eosinophils # (A) 0.3 k/uL (0-0.7); Eosinophils % (A) 5 %; HCT 40.3 % (34.0-46.0); HGB 12.7 gm/dL (11.4-16.0); Lymphocytes # (A) 1.3 k/uL (1.0-4.8); Lymphocytes % (A) 19 %; MCH 26.5 pg (25.0-35.0); MCHC 31.6 g/dL (31.0-37.0); Mean Platelet Volume 8.5; Monocytes # (A) 0.6 k/uL (0-1.0); Monocytes % (A) 9 %; Neutrophils # (A) 4.3 k/uL (1.3-7.7); Neutrophils % (A) 64 %; Platelet Count 221 k/uL (150-450); RBC 4.81 m/uL (3.80-5.40); RDW 15.1 % (11.5-15.5); WBC 6.7 k/uL (3.8-10.6)
[2018-09-13 21:43] LABS: Calcium 10.4 mg/dL (8.4-10.2); INR 0.9 (<1.2); Magnesium 1.9 mg/dL (1.6-2.3); Partial Thromboplastin Time 25.5 sec (22.0-30.0); Prothrombin Time 10.2 sec (9.0-12.0); Total Bilirubin 0.3 mg/dL (0.2-1.3); Total Protein 6.4 g/dL (6.3-8.2)
[2018-09-13 21:46] LABS: MCV 83.8 fL (80.0-100.0)
--- NOTE | 2018-09-13 21:46 | ED ---
General Adult HPI - General Chief complaint: GI Bleed Stated complaint: Rectal Bleeding Time Seen by Provider: 09/13/18 21:08 Source: patient, family, RN notes reviewed, old records reviewed Mode of arrival: wheelchair Limitations: no limitations - History of Present Illness Initial comments: 70-year-old female history of atrial fibrillation currently on Xarelto, presents for evaluation of rectal bleeding. Patient has had 2 episodes of bright red rec farzad bleeding the past 24 hours. Initially she had an episode yesterday shortly after having a normal bowel movement. There was significant amount of bright red blood at that time. Denies any preceding melena. She states she has second episode today similar amount of bright red blood which was shortly after having a normal bowel movement. She had colonoscopy approximately one month ago. Patient reports 2 prior to removed at that time. She did have some hemorrhoids reported. She complains of mild dyspnea with exertion and lightheadedness. - Related Data Home Medications Medication Instructions Recorded Confirmed Levothyroxine Sodium [Synthroid] 150 mcg PO DAILY 09/30/13 09/13/18 Docusate Sodium [Dulcolax Stool 100 mg PO DAILY 11/07/14 09/13/18 Softener] Pravastatin Sodium [Pravachol] 80 mg PO HS 11/07/14 09/13/18 Mirabegron [Myrbetriq] 25 mg PO DAILY 06/01/18 09/13/18 Multivitamins, Thera [Multivitamin 1 tab PO DAILY 06/01/18 09/13/18 (formulary)] Sotalol [Betapace] 80 mg PO BID 06/01/18 09/13/18 Vortioxetine Hydrobromide 10 mg PO DAILY 06/01/18 09/13/18 [Trintellix] Famotidine 20 mg PO BID 06/16/18 09/13/18 Ferrous Sulfate [Iron (65 MG 325 mg PO DAILY 06/16/18 09/13/18 Elemental)] amLODIPine [Norvasc] 5 mg PO DAILY@0900 06/16/18 09/13/18 Aspirin [[place] Aspirin EC] 81 mg PO DAILY 06/28/18 09/13/18 Cyanocobalamin (Vitamin B-12) 5,000 mcg PO DAILY 06/28/18 09/13/18 [Vitamin B-12] Potassium Chloride 10 meq PO DAILY 06/28/18 09/13/18 Furosemide [Lasix] 20 mg PO DAILY 08/18/18 09/13/18 Losartan/Hydrochlorothiazide 1 each PO DAILY 08/18/18 09/13/18 [Losartan-Hctz 100-25 mg Tab] Previous Rx's Medication Instructions Recorded Rivaroxaban [Xarelto] 15 mg PO W/SUPPER tab 06/18/18 Allergies Allergy/AdvReac Type Severity Reaction Status Date / Time atorvastatin calcium Allergy MUSCLE Verified 09/13/18 21:25 [From Lipitor] ACHES azithromycin Allergy Rash/Hives Verified 09/13/18 21:25 [From Zithromax Z-Chau] codeine Allergy Unknown Verified 09/13/18 21:25 hydrochlorothiazide Allergy Unknown Verified 09/13/18 21:25 [From Dyazide] lincomycin HCl Allergy Unknown Verified 09/13/18 21:25 [From Lincocin] meperidine HCl [From Demerol] Allergy Unknown Verified 09/13/18 21:25 metronidazole [From Flagyl] Allergy Unknown Verified 09/13/18 21:25 Metronidazole HCl Allergy Unknown Verified 09/13/18 21:25 [From Flagyl] Penicillins Allergy Unknown Verified 09/13/18 21:25 rosuvastatin calcium Allergy MUSCLE Verified 09/13/18 21:25 [From Crestor] ACHES Sulfa (Sulfonamide Allergy Unknown Verified 09/13/18 21:25 Antibiotics) tetracycline [Tetracycline] Allergy Unknown Verified 09/13/18 21:25 triamterene [From Dyazide] Allergy Unknown Verified 09/13/18 21:25 watermelon Allergy Swelling Uncoded 09/13/18 21:01 Review of Systems ROS Statement: Those systems with pertinent positive or pertinent negative responses have been documented in the HPI. ROS Other: All systems not noted in ROS Statement are negative. Past Medical History Past Medical History: Atrial Fibrillation, COPD, Diabetes Mellitus, GERD/Reflux, Hyperlipidemia, Hypertension, Memory Impairment, Osteoarthritis (OA), Pneumonia, Thyroid Disorder Additional Past Medical History / Comment(s): Right hip infection w/wound vac in Jun.-tx. @[facility]-wound completely healed per son, SHINGLES TO RT FACE/EYE. diet controlled diabetes, osteoporosis, recent blood in stool,. ANEMIA WITH BLOOD TRANSFUSIONS. 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 Past Surgical History: Appendectomy, Heart Catheterization With Stent, Hysterectomy, Joint Replacement, Orthopedic Surgery, Tonsillectomy, Tubal Ligation Additional Past Surgical History / Comment(s): RT HIP REPLACEMENT & multiple surgeries on it due to infection Past Anesthesia/Blood Transfusion Reactions: No Reported Reaction Date of Last Stent Placement:: 2017 Past Psychological History: Depression Smoking Status: Former smoker - Past Family History Father History Unknown: Yes Family Medical History: Hypertension Additional Family Medical History / Comment(s): BRAIN TUMOR Mother Family Medical History: Cancer General Exam Limitations: no limitations General appearance: alert, in no apparent distress Head exam: Present: atraumatic, normocephalic Eye exam: Present: normal appearance Neck exam: Present: normal inspection. Absent: tenderness, meningismus Respiratory exam: Present: normal lung sounds bilaterally. Absent: respiratory distress, wheezes Cardiovascular Exam: Present: regular rate, normal rhythm GI/Abdominal exam: Present: soft, distended. Absent: tenderness, guarding, rebound Rectal exam: Present: normal rectal tone, hemorrhoids (Patient has several external hemorrhoids, no active hemorrhage) Extremities exam: Present: normal inspection Neurological exam: Present: alert, oriented X3 Psychiatric exam: Present: normal affect, normal mood Skin exam: Present: warm, dry, intact, pallor Course Vital Signs 09/13/18 20:55 Temperature 98 F Pulse Rate 68 Respiratory 18 Rate Blood Pressure 141/69 O2 Sat by Pulse 96 Oximetry Medical Decision Making - Medical Decision Making 78-year-old female, anticoagulated secondary to history of atrial fibrillation presents with bright red rectal bleeding. No active bleeding on exam, vital signs are stable. She does have visible external hemorrhoids, and reportedly internal hemorrhoids on recent colonoscopy. She also had several polyps removed on August 19. Hemoglobin is stable and improved from previous. Will be kept in observation for serial hemoglobin, GI consultation - Lab Data Result diagrams: 09/13/18 21:24 09/13/18 21:24 Lab Results 09/13/18 09/13/18 09/13/18 Range/Units 21:24 21:24 21:24 WBC 6.7 (3.8-10.6) k/uL RBC 4.81 (3.80-5.40) m/uL Hgb 12.7 (11.4-16.0) gm/dL Hct 40.3 (34.0-46.0) % MCV 83.8 D (80.0-100.0) fL MCH 26.5 (25.0-35.0) pg MCHC 31.6 (31.0-37.0) g/dL RDW 15.1 (11.5-15.5) % Plt Count 221 (150-450) k/uL Neutrophils % 64 % Lymphocytes % 19 % Monocytes % 9 % Eosinophils % 5 % Basophils % 1 % Neutrophils # 4.3 (1.3-7.7) k/uL Lymphocytes # 1.3 (1.0-4.8) k/uL Monocytes # 0.6 (0-1.0) k/uL Eosinophils # 0.3 (0-0.7) k/uL Basophils # 0.1 (0-0.2) k/uL PT 10.2 (9.0-12.0) sec INR 0.9 (<1.2) APTT 25.5 (22.0-30.0) sec Sodium 138 (137-145) mmol/L Potassium 3.6 (3.5-5.1) mmol/L Chloride 104 (98-107) mmol/L Carbon Dioxide 28 (22-30) mmol/L Anion Gap 6 mmol/L BUN 18 H (7-17) mg/dL Creatinine 0.78 (0.52-1.04) mg/dL Est GFR (CKD-EPI)AfAm 85 (>60 ml/min/1.73 sqM) Est GFR (CKD-EPI)NonAf 73 (>60 ml/min/1.73 sqM) Glucose 132 H (74-99) mg/dL Calcium 10.4 H (8.4-10.2) mg/dL Magnesium 1.9 (1.6-2.3) mg/dL Total Bilirubin 0.3 (0.2-1.3) mg/dL AST 14 (14-36) U/L ALT 19 (9-52) U/L Alkaline Phosphatase 94 (38-126) U/L Total Protein 6.4 (6.3-8.2) g/dL Albumin 4.0 (3.5-5.0) g/dL Disposition Clinical Impression: Hematochezia Disposition: ADMITTED IP TO THIS [facility] Condition: Stable Is patient prescribed a controlled substance at d/c from ED?: No Referrals: Maryann Craig DO [Primary Care Provider] - 1-2 days Decision to Admit Reason: Admit from EC Decision Date: 09/13/18 Decision Time: 22:30
[2018-09-13 21:51] LABS: Potassium 3.6 mmol/L (3.5-5.1)
[2018-09-13] MEDS ORDERED: NALOXONE 0.4 MG/ML 1 ML VIAL IV PRN ×2 (22:25→22:26)
[2018-09-13] MEDS: SODIUM CHLORIDE 0.9% 1,000 ML IV SCH (23:13)
[2018-09-14 00:49] VITALS: BMI 35.2
--- NOTE | 2018-09-14 10:01 | P.HPIM ---
History of Present Illness this is a pleasant 78 years old female with past medical history of COPD, diabetes mellitus, GERD, hyperlipidemia, hypertension, atrial fibrillation on anticoagulation,coronary artery disease, status post 2 stents last year. hypothy roidism.presents because of 2 episodes of bright red blood per rectum. patient is somewhat poor historian and information was taken from the patient with the help of her son at bedside. Patient states that yesterday she noticed some blood in her close coming from her rectum. Which looks painless. However patient was complaining of from right lower quadrant abdominal pain but she could not tell f or how long. She says it comes and go and decrease by movement. It looks mild currently. Patient had abscess opened up last month in the same area patient currently on xarelto for her atrial fibrillation. 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 Patient also confirmed to me no other antiplatelet therapy other than aspirin on the presentation Vitas looks stable. CBC, BMP were unremarkable. Liver enzymes not elevated.patient was started with normal saline at 50 mg/h the emergency room Review of Systems CONSTITUTIONAL: No fever, no malaise, no fatigue. HEENT: No recent visual problems or hearing problems. Denied any sore throat. CARDIOVASCULAR: No orthopnea, PND, no palpitations, no syncope. PULMONARY: No shortness of breath, no cough, no hemoptysis. GASTROINTESTINAL: No diarrhea, no nausea, no vomiting, no abdominal pain. Normoactive bowel sounds. NEUROLOGICAL: No headaches, no weakness, no numbness. HEMATOLOGICAL: Denies any bleeding or petechiae. GENITOURINARY: Denies any burning micturition, frequency, or urgency. MUSCULOSKELETAL/RHEUMATOLOGICAL: Denies any joint pain, swelling, or any muscle pain. ENDOCRINE: Denies any polyuria or polydipsia. Past Medical History Past Medical History: Atrial Fibrillation, COPD, Diabetes Mellitus, GERD/Reflux, Hyperlipidemia, Hypertension, Memory Impairment, Osteoarthritis (OA), Pneumonia, Thyroid Disorder Additional Past Medical History / Comment(s): Right hip infection w/wound vac in Jun.-tx. @[facility]-wound completely healed per son, SHINGLES TO RT FACE/EYE. diet controlled diabetes, osteoporosis, recent blood in stool,. ANEMIA WITH BLOOD TRANSFUSIONS. 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 Past Surgical History: Appendectomy, Heart Catheterization With Stent, Hysterectomy, Joint Replacement, Orthopedic Surgery, Tonsillectomy, Tubal Ligation Additional Past Surgical History / Comment(s): RT HIP REPLACEMENT & multiple surgeries on it due to infection Past Anesthesia/Blood Transfusion Reactions: No Reported Reaction Date of Last Stent Placement:: 2017 Past Psychological History: Depression Smoking Status: Former smoker Past Alcohol Use History: None Reported Additional Past Alcohol Use History / Comment(s): quit smoking in the Past Drug Use History: None Reported - Past Family History Father History Unknown: Yes Family Medical History: Hypertension Additional Family Medical History / Comment(s): BRAIN TUMOR Mother Family Medical History: Cancer Medications and Allergies Home Medications Medication Instructions Recorded Confirmed Type Levothyroxine Sodium [Synthroid] 150 mcg PO DAILY 09/30/13 09/13/18 History Docusate Sodium [Dulcolax Stool 100 mg PO DAILY 11/07/14 09/13/18 History Softener] Pravastatin Sodium [Pravachol] 80 mg PO HS 11/07/14 09/13/18 History Mirabegron [Myrbetriq] 25 mg PO DAILY 06/01/18 09/13/18 History Multivitamins, Thera [Multivitamin 1 tab PO DAILY 06/01/18 09/13/18 History (formulary)] Sotalol [Betapace] 80 mg PO BID 06/01/18 09/13/18 History Vortioxetine Hydrobromide 10 mg PO DAILY 06/01/18 09/13/18 History [Trintellix] Famotidine 20 mg PO BID 06/16/18 09/13/18 History Ferrous Sulfate [Iron (65 MG 325 mg PO DAILY 06/16/18 09/13/18 History Elemental)] amLODIPine [Norvasc] 5 mg PO DAILY@0900 06/16/18 09/13/18 History Rivaroxaban [Xarelto] 15 mg PO W/SUPPER tab 06/18/18 09/13/18 Rx Aspirin [[place] Aspirin EC] 81 mg PO DAILY 06/28/18 09/13/18 History Cyanocobalamin (Vitamin B-12) 5,000 mcg PO DAILY 06/28/18 09/13/18 History [Vitamin B-12] Potassium Chloride 10 meq PO DAILY 06/28/18 09/13/18 History Furosemide [Lasix] 20 mg PO DAILY 08/18/18 09/13/18 History Losartan/Hydrochlorothiazide 1 each PO DAILY 08/18/18 09/13/18 History [Losartan-Hctz 100-25 mg Tab] Allergies Allergy/AdvReac Type Severity Reaction Status Date / Time atorvastatin calcium Allergy MUSCLE Verified 09/13/18 21:25 [From Lipitor] ACHES azithromycin Allergy Rash/Hives Verified 09/13/18 21:25 [From Zithromax Z-Chau] codeine Allergy Unknown Verified 09/13/18 21:25 hydrochlorothiazide Allergy Unknown Verified 09/13/18 21:25 [From Dyazide] lincomycin HCl Allergy Unknown Verified 09/13/18 21:25 [From Lincocin] meperidine HCl [From Demerol] Allergy Unknown Verified 09/13/18 21:25 metronidazole [From Flagyl] Allergy Unknown Verified 09/13/18 21:25 Metronidazole HCl Allergy Unknown Verified 09/13/18 21:25 [From Flagyl] Penicillins Allergy Unknown Verified 09/13/18 21:25 rosuvastatin calcium Allergy MUSCLE Verified 09/13/18 21:25 [From Crestor] ACHES Sulfa (Sulfonamide Allergy Unknown Verified 09/13/18 21:25 Antibiotics) tetracycline [Tetracycline] Allergy Unknown Verified 09/13/18 21:25 triamterene [From Dyazide] Allergy Unknown Verified 09/13/18 21:25 watermelon Allergy Swelling Uncoded 09/13/18 21:01 Physical Exam Vitals: Vital Signs Temp Pulse Pulse Resp BP BP Pulse Ox 09/14/18 08:00 66 18 09/14/18 07:56 96.8 F L 66 16 138/68 96 09/14/18 04:00 97.8 F 69 17 141/65 95 09/14/18 00:00 97.4 F L 67 17 138/63 95 09/13/18 23:42 97.9 F 09/13/18 23:29 97.4 F L 67 15 138/63 95 09/13/18 23:13 79 18 149/69 95 09/13/18 20:55 98 F 68 18 141/69 96 Intake and Output 09/13/18 09/14/18 09/14/18 22:59 06:59 14:59 Intake Total 50 200 Balance 50 200 Intake: Intake, IV Titration 50 Amount Sodium Chloride 0.9% 1, 50 000 ml @ 50 mls/hr IV . Q20H LIVAN Rx#:[id number] Oral 200 Other: Voiding Method Toilet Diaper Incontinent Weight 92.986 kg 93.5 kg GENERAL: The patient is alert and oriented x3, not in any acute distress. Well developed, well nourished. HEENT: Pupils are round and equally reacting to light. EOMI. No scleral icterus. No conjunctival pallor. Normocephalic, atraumatic. No pharyngeal erythema. No thyromegaly. CARDIOVASCULAR: S1 and S2 present. No murmurs, rubs, or gallops. PULMONARY: Chest is clear to auscultation, no wheezing or crackles. ABDOMEN: Soft, nontender, nondistended, normoactive bowel sounds. No palpable organomegaly. MUSCULOSKELETAL: No joint swelling or deformity. EXTREMITIES: No cyanosis, clubbing, or pedal edema. NEUROLOGICAL: Gross neurological examination did not reveal any focal deficits. SKIN: No rashes. Results CBC & Chem 7: 09/13/18 21:24 09/13/18 21:24 Labs: Abnormal Lab Results - Last 24 Hours (Table) 09/13/18 Range/Units 21:24 BUN 18 H (7-17) mg/dL Glucose 132 H (74-99) mg/dL Calcium 10.4 H (8.4-10.2) mg/dL Thrombosis Risk Factor Assmnt - Choose All That Apply Any of the Below Risk Factors Present?: Yes Each Factor Represents 1 point: Obesity (BMI >25) Other Risk Factors: Yes Each Risk Factor Represents 3 Points: Age 75 years or older Thrombosis Risk Factor Assessment Total Risk Factor Score: 4 Thrombosis Risk Factor Assessment Level: Moderate Risk Assessment and Plan Assessment: painless bright red blood per rectum history of atrial fibrillation on xarelto history of coronary artery disease status post cardiac stents History of COPD History of diabetes mellitus History of GERD Hyperlipidemia Incisional hypertension Plan: this is a pleasant 78 years old female who presents with bright red blood per rectum. Continue with Protonix, call gastroenterology consult. Iron studies. hold aspirin and xarelto toilet cleared by GI team. Monitor hemoglobin. Labs and medication were reviewed.. Continue same treatment. Continue with symptomatic treatment. Resume home medication. Monitor lytes and vitals. DVT and GI prophylaxis. Further recommendations of the clinical course of the patient DVT prophylaxis: no heparinreview of GI bleed GI Prophylaxis: Ppi PT/OT: Pending Prognosis is guarded
--- NOTE | 2018-09-14 11:29 | P.CONS ---
History of Present Illness - Reason for Consult Consult date: 09/14/18 Hematochezia Requesting physician: Awilda Vaughan - Chief Complaint Hematochezia - History of Present Illness 78-year-old female history of atrial fibrillation maintained on anticoagulation Xarelto admitted with painless hematochezia. Denies hematemesis or melena. Status post EGD colonoscopy 08/19/2018 for evaluation anemia and blood in stools with findings of sliding small hiatal hernia complicated reflux disease. Right colon polypectomy low-grade internal hemorrhoids. Hemoglobin prior to EGD colonoscopy was 9.9. Admission 12.7. MCV 83. Platelet 221. INR 0.9. BUN 18. Creatinine 0.7. Patient describes her bleeding only on tissue not so much in the stool. Denies constipation. Takes a stool softener at home. Review of Systems RConstitutional: Denies fever, chills, sweats, weight gain, or loss. HEENT: Negative for migraines, blurred vision or loss, earaches, drainage, tinnitus, oral mucosal lesions, dysphagia, or odynophagia. CARDIAC: Negative for chest pain, arrhythmias, or palpitation. RESPIRATORY: Negative for shortness of breath, hemoptysis, cough, or sputum production. GI: See HPI for pertinent findings. : Negative for hematuria, urgency, frequency, polyuria, or dysuria. GYNc: Negative vaginal discharge. MUSCULOSKELETAL: Negative for muscle aches, swelling, arthritis, and arthralgias. NEUROLOGIC: Negative for stroke or TIA. ENDOCRINE: Negative for thyroid problems. SKIN: Negative for rash or itching. PSYCHIATRIC: Negative history for depression and anxietye Past Medical History Past Medical History: Atrial Fibrillation, COPD, Diabetes Mellitus, GERD/Reflux, Hyperlipidemia, Hypertension, Memory Impairment, Osteoarthritis (OA), Pneumonia, Thyroid Disorder Additional Past Medical History / Comment(s): Right hip infection w/wound vac in Jun.-tx. @[facility]-wound completely healed per son, SHINGLES TO RT FACE/EYE. diet controlled diabetes, osteoporosis, recent blood in stool,. ANEMIA WITH BLOOD TRANSFUSIONS. 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 Past Surgical History: Appendectomy, Heart Catheterization With Stent, Hysterectomy, Joint Replacement, Orthopedic Surgery, Tonsillectomy, Tubal Ligation Additional Past Surgical History / Comment(s): RT HIP REPLACEMENT & multiple surgeries on it due to infection Past Anesthesia/Blood Transfusion Reactions: No Reported Reaction Date of Last Stent Placement:: 2017 Past Psychological History: Depression Smoking Status: Former smoker Past Alcohol Use History: None Reported Additional Past Alcohol Use History / Comment(s): quit smoking in the 70s Past Drug Use History: None Reported - Past Family History Father History Unknown: Yes Family Medical History: Hypertension Additional Family Medical History / Comment(s): BRAIN TUMOR Mother Family Medical History: Cancer Medications and Allergies Home Medications Medication Instructions Recorded Confirmed Type Levothyroxine Sodium [Synthroid] 150 mcg PO DAILY 09/30/13 09/13/18 History Pravastatin Sodium [Pravachol] 80 mg PO HS 11/07/14 09/13/18 History Mirabegron [Myrbetriq] 25 mg PO DAILY 06/01/18 09/13/18 History Multivitamins, Thera [Multivitamin 1 tab PO DAILY 06/01/18 09/13/18 History (formulary)] Sotalol [Betapace] 80 mg PO BID 06/01/18 09/13/18 History Vortioxetine Hydrobromide 10 mg PO DAILY 06/01/18 09/13/18 History [Trintellix] Famotidine 20 mg PO BID 06/16/18 09/13/18 History Ferrous Sulfate [Iron (65 MG 325 mg PO DAILY 06/16/18 09/13/18 History Elemental)] amLODIPine [Norvasc] 5 mg PO DAILY@0900 06/16/18 09/13/18 History Rivaroxaban [Xarelto] 15 mg PO W/SUPPER tab 06/18/18 09/13/18 Rx Aspirin [[place] Aspirin EC] 81 mg PO DAILY 06/28/18 09/13/18 History Cyanocobalamin (Vitamin B-12) 5,000 mcg PO DAILY 06/28/18 09/13/18 History [Vitamin B-12] Potassium Chloride 10 meq PO DAILY 06/28/18 09/13/18 History Furosemide [Lasix] 20 mg PO DAILY 08/18/18 09/13/18 History Losartan/Hydrochlorothiazide 1 each PO DAILY 08/18/18 09/13/18 History [Losartan-Hctz 100-25 mg Tab] Sennosides-Docusate Sodium 2 tab PO DAILY #60 tablet 09/15/18 Rx [Senokot-S] Allergies Allergy/AdvReac Type Severity Reaction Status Date / Time atorvastatin calcium Allergy MUSCLE Verified 09/13/18 21:25 [From Lipitor] ACHES azithromycin Allergy Rash/Hives Verified 09/13/18 21:25 [From Zithromax Z-Chau] codeine Allergy Unknown Verified 09/13/18 21:25 hydrochlorothiazide Allergy Unknown Verified 09/13/18 21:25 [From Dyazide] lincomycin HCl Allergy Unknown Verified 09/13/18 21:25 [From Lincocin] meperidine HCl [From Demerol] Allergy Unknown Verified 09/13/18 21:25 metronidazole [From Flagyl] Allergy Unknown Verified 09/13/18 21:25 Metronidazole HCl Allergy Unknown Verified 09/13/18 21:25 [From Flagyl] Penicillins Allergy Unknown Verified 09/13/18 21:25 rosuvastatin calcium Allergy MUSCLE Verified 09/13/18 21:25 [From Crestor] ACHES Sulfa (Sulfonamide Allergy Unknown Verified 09/13/18 21:25 Antibiotics) tetracycline [Tetracycline] Allergy Unknown Verified 09/13/18 21:25 triamterene [From Dyazide] Allergy Unknown Verified 09/13/18 21:25 watermelon Allergy Swelling Uncoded 09/13/18 21:01 Physical Exam Vitals: Vital Signs Temp Pulse Pulse Resp BP BP Pulse Ox 09/14/18 08:00 66 18 09/14/18 07:56 96.8 F L 66 16 138/68 96 09/14/18 04:00 97.8 F 69 17 141/65 95 09/14/18 00:00 97.4 F L 67 17 138/63 95 09/13/18 23:42 97.9 F 09/13/18 23:29 97.4 F L 67 15 138/63 95 09/13/18 23:13 79 18 149/69 95 09/13/18 20:55 98 F 68 18 141/69 96 Intake and Output 09/13/18 09/14/18 09/14/18 22:59 06:59 14:59 Intake Total 50 200 Balance 50 200 Intake: Intake, IV Titration 50 Amount Sodium Chloride 0.9% 1, 50 000 ml @ 50 mls/hr IV . Q20H COUNT INCLUDES THE [facility] Rx#:[id number] Oral 200 Other: Voiding Method Toilet Diaper Incontinent Weight 92.986 kg 93.5 kg General appearance: The patient is alert, oriented, in no acute distress. HET: Head is normocephalic and atraumatic. Pupils are equal and reactive. Oropharynx is clear without lesions. Neck: Supple without lymphadenopathy. Trachea midline. Heart: S1 S2. Regular rate and rhythm. Lungs: No crackles or wheezes are heard. Abdomen: Soft, nontender, nondistended with bowel sounds. No peritoneal signs. No palpable organomegaly or masses. Extremities: Normal skin color and turgor. No cyanosis, rash, ulceration, clubbing, or edema. Radial and pedal pulses are 2/4 bilaterally. Neurological: No focal deficits. Strength and sensation are grossly intact. Results CBC & Chem 7: 09/15/18 06:14 09/15/18 06:14 Labs: Abnormal Lab Results - Last 24 Hours (Table) 09/13/18 Range/Units 21:24 BUN 18 H (7-17) mg/dL Glucose 132 H (74-99) mg/dL Calcium 10.4 H (8.4-10.2) mg/dL Assessment and Plan (1) Hematochezia Narrative/Plan: 78-year-old female history of iron deficiency anemia admitted with painless bright red blood per rectum status post EGD colonoscopy one month ago for evaluation of blood in stools and anemia with no evidence of peptic ulcer disease right polypectomy and hemorrhoids. Bleeding could be from hemorrhoids underlying small bowel source cannot be excluded. Continue with holding anticoagulation. CBC monitoring. Hemoglobin on admission 12.7. Current Visit: Yes Status: Acute Code(s): K92.1 - MELENA SNOMED Code(s): 545159870 Plan: 1. Will allow full liquid diet. Continue iron supplementation. CBC monitoring. Repeat endoscopy not planned at this time. Consideration for small bowel capsule endoscopy will advise. For now continue with stool softeners avoid constipation, local hemorrhoidal care. We'll follow closely with you. Thank you for this kind referral and the opportunity to participate in the care of your patient. This consultation was discussed with Dr. Olea. The impression and plan of care have been directed as dictated.
[2018-09-14] MEDS: PANTOPRAZOLE 40 MG/10 ML VIAL IVP SCH ×2 (12:56→20:12)
[2018-09-14] MEDS: HYDROCORTISONE 2.5% RECTAL CREAM 30 GM TUBE RECTAL SCH (20:11)
[2018-09-14] MEDS: SODIUM CHLORIDE 0.9% 1,000 ML IV SCH (20:11)
[2018-09-14] MEDS: SOTALOL 80 MG TAB PO SCH (20:12)
[2018-09-14] MEDS: PRAVASTATIN SODIUM 80 MG TAB PO SCH (20:12)
[2018-09-15] MEDS: LEVOTHYROXINE 75 MCG TAB PO SCH (06:01)
[2018-09-15 06:55] LABS: Basophils % (A) 1 %; Eosinophils # (A) 0.3 k/uL (0-0.7); Eosinophils % (A) 5 %; HGB 11.9 gm/dL (11.4-16.0); Hypochromasia Slight; Lymphocytes # (A) 1.3 k/uL (1.0-4.8); Lymphocytes % (A) 23 %; MCH 26.9 pg (25.0-35.0); MCHC 32.1 g/dL (31.0-37.0); MCV 83.6 fL (80.0-100.0); Mean Platelet Volume 8.3; Monocytes # (A) 0.5 k/uL (0-1.0); Monocytes % (A) 9 %; Neutrophils # (A) 3.4 k/uL (1.3-7.7); Neutrophils % (A) 60 %; Platelet Count 206 k/uL (150-450); RBC 4.43 m/uL (3.80-5.40); WBC 5.7 k/uL (3.8-10.6)
[2018-09-15 07:00] LABS: Anion Gap 3 mmol/L; Blood Urea Nitrogen 16 mg/dL (7-17); Calcium 10.2 mg/dL (8.4-10.2); Carbon Dioxide 31 mmol/L (22-30); Chloride 106 mmol/L (98-107); Glucose 111 mg/dL (74-99); Potassium 3.9 mmol/L (3.5-5.1); Sodium 140 mmol/L (137-145)
[2018-09-15] MEDS: amLODIPine 10 MG TAB PO SCH (08:48)
[2018-09-15] MEDS: FUROSEMIDE 20 MG TAB PO SCH (08:49)
[2018-09-15] MEDS: FERROUS SULFATE 325 MG TAB PO SCH (08:49)
[2018-09-15] MEDS: LOSARTAN-HCTZ 50-12.5 MG 1 EACH TAB PO SCH (08:50)
[2018-09-15] MEDS: PANTOPRAZOLE 40 MG/10 ML VIAL IVP SCH (08:50)
[2018-09-15] MEDS: HYDROCORTISONE 2.5% RECTAL CREAM 30 GM TUBE RECTAL SCH ×2 (08:50→20:54)
[2018-09-15] MEDS: POTASSIUM CHLORIDE ER 10 MEQ TAB.ER.PRT PO SCH (08:50)
[2018-09-15] MEDS: SOTALOL 80 MG TAB PO SCH ×2 (08:55→20:53)
[2018-09-15] MEDS: VORTIOXETINE HYDROBROMIDE 10 MG TABLET PO SCH (08:56)
[2018-09-15] MEDS ORDERED: DOCUSATE 100 MG CAP PO SCH (09:00)
[2018-09-15] MEDS ORDERED: amLODIPine 5 MG TAB PO SCH (09:00)
[2018-09-15] MEDS: SENNOSIDES-DOCUSATE SODIUM 1 EACH TAB PO SCH ×2 (09:06→20:53)
--- NOTE | 2018-09-15 09:36 | P.PN ---
Subjective this is a pleasant 78 years old female with past medical history of COPD, diabetes mellitus, GERD, hyperlipidemia, hypertension, atrial fibrillation on anticoagulation,coronary artery disease, status post 2 stents last year. hypothyroidism.presents because of 2 episodes of bright red blood per rectum. patient is somewhat poor historian and information was taken from the patient with the help of her son at bedside. Patient states that yesterday she noticed some blood in her close coming from her rectum. Which looks painless. However patient was complaining of from right lower quadrant abdominal pain but she could not tell for how long. She says it comes and go and decrease by movement. It looks mild currently. Patient had abscess opened up last month in the same area patient currently on xarelto for her atrial fibrillation. 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 Patient also confirmed to me no other antiplatelet therapy other than aspirin 09/15/2018 Patient is with no abdominal pain. No nausea vomiting. No chest pain or dyspnea. She had a normal bowel movement yesterday and this morning with no fresh blood in it however to look dark in color as per patient. However patient's vitals remained stable and her blood pressure on the high side. Hemoglobin stable at 11.9. GI team are following the patient and they c onsidering possible capsule endoscopy. xarelto is on hold, for her atrial fibrillation Antihypertensive as provided, Norvasc dose increased from 5-10 this morning CONSTITUTIONAL: No fever, no malaise, no fatigue. HEENT: No recent visual problems or hearing problems. Denied any sore throat. CARDIOVASCULAR: No orthopnea, PND, no palpitations, no syncope. PULMONARY: No shortness of breath, no cough, no hemoptysis. GASTROINTESTINAL: No diarrhea, no nausea, no vomiting, no abdominal pain. Nor moactive bowel sounds. NEUROLOGICAL: No headaches, no weakness, no numbness. HEMATOLOGICAL: Denies any bleeding or petechiae. GENITOURINARY: Denies any burning micturition, frequency, or urgency. MUSCULOSKELETAL/RHEUMATOLOGICAL: Denies any joint pain, swelling, or any muscle pain. ENDOCRINE: Denies any polyuria or polydipsia. Medication: Norvasc, ferrous sulfate, Lasix, hydrochlorothiazide/losartan, hydrocortisone, levothyroxine, Protonix, potassium chloride, pravastatin, Senokot, sotalol, trintellix Objective - Vital Signs Vital signs: Vital Signs Temp 98.1 F 09/15/18 08:00 Pulse 67 09/15/18 08:00 Resp 18 09/15/18 08:00 BP 181/77 09/15/18 08:00 Pulse Ox 96 09/15/18 08:00 Intake & Output 09/14/18 09/15/18 09/15/18 18:59 06:59 18:59 Intake Total 644 Output Total 400 Balance 244 Weight 93.4 kg Intake: Oral 644 Output: Urine 400 Other: Voiding Method Toilet Toilet Diaper Diaper Incontinent Incontinent # Voids 3 - Exam GENERAL: The patient is alert and oriented x3, not in any acute distress. Well developed, well nourished. HEENT: Pupils are round and equally reacting to light. EOMI. No scleral icterus. No conjunctival pallor. Normocephalic, atraumatic. No pharyngeal erythema. No thyromegaly. CARDIOVASCULAR: S1 and S2 present. No murmurs, rubs, or gallops. PULMONARY: Chest is clear to auscultation, no wheezing or crackles. ABDOMEN: Soft, nontender, nondistended, normoactive bowel sounds. No palpable organomegaly. MUSCULOSKELETAL: No joint swelling or deformity. EXTREMITIES: No cyanosis, clubbing, or pedal edema. NEUROLOGICAL: Gross neurological examination did not reveal any focal deficits. SKIN: No rashes. - Labs CBC & Chem 7: 09/15/18 06:14 09/15/18 06:14 Labs: Abnormal Lab Results - Last 24 Hours (Table) 09/15/18 Range/Units 06:14 Carbon Dioxide 31 H (22-30) mmol/L Glucose 111 H (74-99) mg/dL Assessment and Plan Assessment: painless bright red blood per rectum history of atrial fibrillation on xarelto history of coronary artery disease status post cardiac stents History of COPD History of diabetes mellitus History of GERD Hyperlipidemia Incisional hypertension Plan: this is a pleasant 78 years old female who presents with bright red blood per rectum. Continue with Protonix, call gastroenterology consult. Iron studies. hold aspirin and xarelto toilet cleared by GI team. Monitor hemoglobin. Labs and medication were reviewed.. Continue same treatment. Continue with symptomatic treatment. Resume home medication. Monitor lytes and vitals. DVT and GI prophylaxis. Further recommendations of the clinical course of the patient DVT prophylaxis: no heparinreview of GI bleed GI Prophylaxis: Ppi PT/OT: Pending Prognosis is guarded
--- NOTE | 2018-09-15 11:28 | P.PN ---
Subjective Progress Note Date: 09/15/18 Principal diagnosis: Hematochezia No blood in stool just a small amount of bright red on tissue only this morning. Denies abdominal pain. Hemoglobin 11.9. Objective - Vital Signs Vital signs: Vital Signs Temp 98.1 F 09/15/18 08:00 Pulse 60 09/15/18 11:08 Resp 18 09/15/18 11:08 BP 154/67 09/15/18 11:08 Pulse Ox 94 L 09/15/18 11:08 Intake & Output 09/14/18 09/15/18 09/15/18 18:59 06:59 18:59 Intake Total 644 360 Output Total 400 100 Balance 244 260 Weight 93.4 kg Intake: Oral 644 360 Output: Urine 400 100 Other: Voiding Method Toilet Toilet Toilet Diaper Diaper Diaper Incontinent Incontinent Incontinent # Voids 3 1 - Exam General appearance: The patient is alert, oriented, in no acute distress. HET: Head is normocephalic and atraumatic. Pupils are equal and reactive. Oropharynx is clear without lesions. Neck: Supple without lymphadenopathy. Trachea midline. Heart: S1 S2. Regular rate and rhythm. Lungs: No crackles or wheezes are heard. Abdomen: Soft, nontender, nondistended with bowel sounds. No peritoneal signs. No palpable organomegaly or masses. Extremities: Normal skin color and turgor. No cyanosis, rash, ulceration, clubbing, or edema. Radial and pedal pulses are 2/4 bilaterally. Neurological: No focal deficits. Strength and sensation are grossly intact. - Labs CBC & Chem 7: 09/15/18 06:14 09/15/18 06:14 Labs: Abnormal Lab Results - Last 24 Hours (Table) 09/15/18 Range/Units 06:14 Carbon Dioxide 31 H (22-30) mmol/L Glucose 111 H (74-99) mg/dL Assessment and Plan (1) Hematochezia Narrative/Plan: 78-year-old female history of iron deficiency anemia admitted with painless bright red blood per rectum status post EGD colonoscopy one month ago for evaluation of blood in stools and anemia with no evidence of peptic ulcer disease right polypectomy and hemorrhoids. Bleeding could be from hemorrhoids underlying small bowel source cannot be excluded. Continue with holding anticoagulation. CBC monitoring. Hemoglobin on admission 12.7. Current Visit: Yes Status: Acute Code(s): K92.1 - MELENA SNOMED Code(s): 461606733 Plan: 1. Soft GI diet. Continue iron supplementation. CBC monitoring. Repeat endoscopy small bowel capsule not planned at this time per Dr. Olea's recommendations.. ration for small bowel capsule endoscopy will advise. May restart anticoagulation. For now continue with stool softeners avoid constipation, local hemorrhoidal care; hemorrhoidal cream or Anusol HC 25 mg per rectum daily at bedtime. Discharge per medicine. We'll follow as needed. Assessment and plan a care discussed with Dr. Olea
[2018-09-15] MEDS: SODIUM CHLORIDE 0.9% 1,000 ML IV SCH (11:51)
[2018-09-15] MEDS ORDERED: RIVAROXABAN 15 MG TAB PO SCH (17:30)
[2018-09-15] MEDS: ASPIRIN 81 MG PO SCH (20:53)
[2018-09-15] MEDS: PRAVASTATIN SODIUM 80 MG TAB PO SCH (20:53)
[2018-09-15] MEDS: PANTOPRAZOLE 40 MG TABLET PO SCH (20:53)
[2018-09-15 22:37] VITALS: RESP 18
[2018-09-16] MEDS: PANTOPRAZOLE 40 MG TABLET PO SCH (06:12)
[2018-09-16] MEDS: LEVOTHYROXINE 75 MCG TAB PO SCH (06:12)
[2018-09-16 07:38] LABS: Basophils % (A) 1 %; Eosinophils # (A) 0.2 k/uL (0-0.7); Eosinophils % (A) 4 %; HCT 36.1 % (34.0-46.0); HGB 11.6 gm/dL (11.4-16.0); Lymphocytes # (A) 1.3 k/uL (1.0-4.8); Lymphocytes % (A) 27 %; MCH 27.2 pg (25.0-35.0); MCHC 32.2 g/dL (31.0-37.0); MCV 84.5 fL (80.0-100.0); Mean Platelet Volume 8.1; Monocytes # (A) 0.5 k/uL (0-1.0); Monocytes % (A) 10 %; Neutrophils # (A) 2.7 k/uL (1.3-7.7); Neutrophils % (A) 56 %; Platelet Count 183 k/uL (150-450); RBC 4.28 m/uL (3.80-5.40); RDW 15.2 % (11.5-15.5); WBC 4.8 k/uL (3.8-10.6)
[2018-09-16] MEDS: FUROSEMIDE 20 MG TAB PO SCH (09:24)
[2018-09-16] MEDS: SOTALOL 80 MG TAB PO SCH (09:24)
[2018-09-16] MEDS: HYDROCORTISONE 2.5% RECTAL CREAM 30 GM TUBE RECTAL SCH (09:24)
[2018-09-16] MEDS: ASPIRIN 81 MG PO SCH (09:24)
[2018-09-16] MEDS: POTASSIUM CHLORIDE ER 10 MEQ TAB.ER.PRT PO SCH (09:24)
[2018-09-16] MEDS: amLODIPine 10 MG TAB PO SCH (09:24)
[2018-09-16] MEDS: FERROUS SULFATE 325 MG TAB PO SCH (09:24)
[2018-09-16] MEDS: VORTIOXETINE HYDROBROMIDE 10 MG TABLET PO SCH (09:24)
[2018-09-16] MEDS: SENNOSIDES-DOCUSATE SODIUM 1 EACH TAB PO SCH (09:24)
[2018-09-16] MEDS: LOSARTAN-HCTZ 50-12.5 MG 1 EACH TAB PO SCH (09:24)
[2018-09-16 09:31] VITALS: BP 155/69; PULSE 63; TEMP 97.7
--- NOTE | 2018-09-16 14:51 | P.DS ---
Providers Date of admission: 09/13/18 22:25 Attending physician: Awilda Vaughan Primary care physician: Maryann Craig Hospital Course: Diagnoses: painless bright red blood per rectum, mostly secondary to hemorrhoids, although other causes are still possible history of atrial fibrillation on xarelto left shoulder mass, mostly lipoma, however risk including but not limited to cancer is explained for the pt and she agrees with it history of coronary artery disease status post cardiac stents. History of COPD History of diabetes mellitus History of GERD Hyperlipidemia hypertension Hospital course: This is a pleasant 78 years old female who presents with painless bright red blood per rectum, mainly while she wiping in the toilet and on her clothes. Patient denies abdominal pain. Her hemoglobin remained stable and on the days of discharge it was 11.6 which is within normal limits. Patient has been evaluated by gastroenterology team and they recommended no further workup or intervention currently and to resume her anticoagulation. Patient received re sult on aspirin yesterday however she remains asymptomatic with no more bleeding today and her hemoglobin is stable as above. Patient also denies any other symptoms like she denying chest pain or dyspnea. No change in urine or bowel habits. No abdominal pain or nausea vomiting. Patient remained stable and she was eager to go home today. Patient was cleared for discharge by Cardiology Team and pt also complains from left shoulder mass, mostly lipoma. it about one inch, mobile with smooth surface Problems and Management Plan Was Discussed with the Patient and She Verbalized Understanding and Acceptance Patient Was Found Stable and Can Be Discharged and Guarded Prognosis However She Needs Follow-Up As an Outpatient. appointments were made with pcp and GI clinic and pt agrees with them and timing and states she will follow up also pt will be discharged on protonix BID for one month and may be switched back to daily , i called and told him about the case and the medication recommendation. also i told about her shoulder mass , with recommendation for surgical referral per his discretion and he kindly took a note of this and agrees. Gen: patient is a AAOx3, no distress CVS: S1-S2, RRR, no murmur Lungs: B/L CTA, no wheezing Abdomen: soft, no distention, no tenderness, positive bowel sounds Extremity: no leg edema or induration Time spent more than 35 minutes Patient Condition at Discharge: Stable Plan - Discharge Summary Discharge Rx Participant: No New Discharge Prescriptions: New Sennosides-Docusate Sodium [Senokot-S] 2 tab PO DAILY #60 tablet Hydrocortisone Pr Cream [Proctosol-Hc 2.5%] 1 applic RECTAL BID 5 Days #1 applic Pantoprazole [Protonix] 40 mg PO AC-BID #60 tablet.dr Discontinued Docusate Sodium [Dulcolax Stool Softener] 100 mg PO DAILY Famotidine 20 mg PO BID No Action Levothyroxine Sodium [Synthroid] 150 mcg PO DAILY Pravastatin Sodium [Pravachol] 80 mg PO HS Vortioxetine Hydrobromide [Trintellix] 10 mg PO DAILY Sotalol [Betapace] 80 mg PO BID Multivitamins, Thera [Multivitamin (formulary)] 1 tab PO DAILY Mirabegron [Myrbetriq] 25 mg PO DAILY Ferrous Sulfate [Iron (65 MG Elemental)] 325 mg PO DAILY amLODIPine [Norvasc] 5 mg PO DAILY@0900 Rivaroxaban [Xarelto] 15 mg PO W/SUPPER tab Cyanocobalamin (Vitamin B-12) [Vitamin B-12] 5,000 mcg PO DAILY Potassium Chloride 10 meq PO DAILY Aspirin [[place] Aspirin EC] 81 mg PO DAILY Furosemide [Lasix] 20 mg PO DAILY Losartan/Hydrochlorothiazide [Losartan-Hctz 100-25 mg Tab] 1 each PO DAILY Discharge Medication List Levothyroxine Sodium [Synthroid] 150 mcg PO DAILY 09/30/13 [History] Pravastatin Sodium [Pravachol] 80 mg PO HS 11/07/14 [History] Mirabegron [Myrbetriq] 25 mg PO DAILY 06/01/18 [History] Multivitamins, Thera [Multivitamin (formulary)] 1 tab PO DAILY 06/01/18 [History] Sotalol [Betapace] 80 mg PO BID 06/01/18 [History] Vortioxetine Hydrobromide [Trintellix] 10 mg PO DAILY 06/01/18 [History] Ferrous Sulfate [Iron (65 MG Elemental)] 325 mg PO DAILY 06/16/18 [History] amLODIPine [Norvasc] 5 mg PO DAILY@0900 06/16/18 [History] Rivaroxaban [Xarelto] 15 mg PO W/SUPPER tab 06/18/18 [Rx] Aspirin [[place] Aspirin EC] 81 mg PO DAILY 06/28/18 [History] Cyanocobalamin (Vitamin B-12) [Vitamin B-12] 5,000 mcg PO DAILY 06/28/18 [History] Potassium Chloride 10 meq PO DAILY 06/28/18 [History] Furosemide [Lasix] 20 mg PO DAILY 08/18/18 [History] Losartan/Hydrochlorothiazide [Losartan-Hctz 100-25 mg Tab] 1 each PO DAILY 08/18/18 [History] Sennosides-Docusate Sodium [Senokot-S] 2 tab PO DAILY #60 tablet 09/15/18 [Rx] Hydrocortisone Pr Cream [Proctosol-Hc 2.5%] 1 applic RECTAL BID 5 Days #1 applic 09/16/18 [Rx] Pantoprazole [Protonix] 40 mg PO AC-BID #60 tablet. 09/16/18 [Rx] Follow up Appointment(s)/Referral(s): Maykel James MD [STAFF PHYSICIAN] - 09/27/18 3:30 pm (Thursday) Maryann Craig DO [Primary Care Provider] - 09/24/18 9:20 am (Thursday) Patient Instructions/Handouts: Rectal Bleeding (DC)
== END 2018-09-16 15:23 | disposition home or self-care (01) ==
LOC: EC 20:13 → 3SCARD 22:25
PROVIDERS: ADMIT Hospitalist; ATTEND Hospitalist
DX: K92.1 Melena (principal); K64.8 Other hemorrhoids; I48.91 Unspecified atrial fibrillation; D17.79 Benign lipomatous neoplasm of other sites; R22.9 Localized swelling, mass and lump, unspecified; I25.10 Atherosclerotic heart disease of native coronary artery without angina pectoris; J44.9 Chronic obstructive pulmonary disease, unspecified; E11.9 Type 2 diabetes mellitus without complications; K21.9 Gastro-esophageal reflux disease without esophagitis; E78.5 Hyperlipidemia, unspecified; I10 Essential (primary) hypertension; R42 Dizziness and giddiness; M19.90 Unspecified osteoarthritis, unspecified site; M81.0 Age-related osteoporosis without current pathological fracture; D64.9 Anemia, unspecified; R41.3 Other amnesia; I25.2 Old myocardial infarction; F32.9 Major depressive disorder, single episode, unspecified; K64.4 Residual hemorrhoidal skin tags; R32 Unspecified urinary incontinence; D50.9 Iron deficiency anemia, unspecified; E03.9 Hypothyroidism, unspecified; R10.31 Right lower quadrant pain; E66.9 Obesity, unspecified; Z68.35 Body mass index [BMI] 35.0-35.9, adult; Z87.01 Personal history of pneumonia (recurrent); Z86.19 Personal history of other infectious and parasitic diseases; Z86.14 Personal history of Methicillin resistant Staphylococcus aureus infection; Z87.891 Personal history of nicotine dependence; Z86.010 Personal history of colon polyps; Z79.01 Long term (current) use of anticoagulants; Z95.5 Presence of coronary angioplasty implant and graft; Z79.890 Hormone replacement therapy; Z79.899 Other long term (current) drug therapy; Z79.82 Long term (current) use of aspirin; Z88.1 Allergy status to other antibiotic agents; Z88.5 Allergy status to narcotic agent; Z88.0 Allergy status to penicillin; Z88.2 Allergy status to sulfonamides; Z88.8 Allergy status to other drugs, medicaments and biological substances; Z91.018 Allergy to other foods; Z80.9 Family history of malignant neoplasm, unspecified; Z82.0 Family history of epilepsy and other diseases of the nervous system
CPT/HCPCS: 96376 ×2; 96374; 99285; 36415; 97116; 97162; 97535 ×2; 97165; 80053; 80048; 83735; 85025 ×3; 85610; 85730; G0378 ×4; C9113 ×2

== ENCOUNTER 2018-10-03 21:17 | Emergency (ER) | payer MEDICARE, BC ==
[2018-10-03 21:28] VITALS: TEMP 98.2
--- NOTE | 2018-10-03 21:47 | ED ---
General Adult HPI - General Chief complaint: Shortness of Breath Stated complaint: COLIN Time Seen by Provider: 10/03/18 21:46 Source: patient, family Mode of arrival: ambulatory Limitations: no limitations - History of Present Illness Initial comments: Cielo is a 78-year-old female with past medical history is documented below, most significant for chronic constipation for which she takes stool softeners. Patient reports that this afternoon she has had 3 episodes of loose stools she were ports that while she was sitting on the toilet having loose stool she began to feel very lightheaded. She describes it as feeling as though she stood up too fast though she was still sitting down. Patient reports feeling like she was about to pass out she felt like her whole body went limp and was sinking onto the toilet. She reports that she was unable to screen for help with sat there for a while and felt better. Patient reports this is happened to her once before and she never got evaluated however today her family thought she should be evaluated. Patient denies any chest pain or palpitations with this event she does report feeling as though she couldn't catch her breath though that has now resolved. He denies any headache, vision changes, weakness in one side or the other. - Related Data Home Medications Medication Instructions Recorded Confirmed Levothyroxine Sodium [Synthroid] 150 mcg PO DAILY 09/30/13 10/03/18 Pravastatin Sodium [Pravachol] 80 mg PO HS 11/07/14 10/03/18 Mirabegron [Myrbetriq] 25 mg PO DAILY 06/01/18 10/03/18 Multivitamins, Thera [Multivitamin 1 tab PO DAILY 06/01/18 10/03/18 (formulary)] Sotalol [Betapace] 80 mg PO BID 06/01/18 10/03/18 Vortioxetine Hydrobromide 10 mg PO DAILY 06/01/18 10/03/18 [Trintellix] Ferrous Sulfate [Iron (65 MG 325 mg PO DAILY 06/16/18 10/03/18 Elemental)] amLODIPine [Norvasc] 5 mg PO DAILY@0900 06/16/18 10/03/18 Aspirin [[place] Aspirin EC] 81 mg PO DAILY 06/28/18 10/03/18 Cyanocobalamin (Vitamin B-12) 5,000 mcg PO DAILY 06/28/18 10/03/18 [Vitamin B-12] Potassium Chloride 10 meq PO DAILY 06/28/18 10/03/18 Furosemide [Lasix] 20 mg PO DAILY 08/18/18 10/03/18 Losartan/Hydrochlorothiazide 1 tab PO DAILY 08/18/18 10/03/18 [Losartan-Hctz 100-25 mg Tab] Ticagrelor [Brilinta] 90 mg PO BID 10/03/18 10/03/18 Previous Rx's Medication Instructions Recorded Rivaroxaban [Xarelto] 15 mg PO W/SUPPER tab 06/18/18 Sennosides-Docusate Sodium 2 tab PO DAILY #60 tablet 09/15/18 [Senokot-S] Pantoprazole [Protonix] 40 mg PO AC-BID #60 tablet. 09/16/18 Allergies Allergy/AdvReac Type Severity Reaction Status Date / Time atorvastatin calcium Allergy MUSCLE Verified 10/03/18 21:53 [From Lipitor] ACHES azithromycin Allergy Rash/Hives Verified 10/03/18 21:53 [From Zithromax Z-Chau] codeine Allergy Unknown Verified 10/03/18 21:53 hydrochlorothiazide Allergy Unknown Verified 10/03/18 21:53 [From Dyazide] lincomycin HCl Allergy Unknown Verified 10/03/18 21:53 [From Lincocin] meperidine HCl [From Demerol] Allergy Unknown Verified 10/03/18 21:53 metronidazole [From Flagyl] Allergy Unknown Verified 10/03/18 21:53 Metronidazole HCl Allergy Unknown Verified 10/03/18 21:53 [From Flagyl] Penicillins Allergy Unknown Verified 10/03/18 21:53 rosuvastatin calcium Allergy MUSCLE Verified 10/03/18 21:53 [From Crestor] ACHES Sulfa (Sulfonamide Allergy Unknown Verified 10/03/18 21:53 Antibiotics) tetracycline [Tetracycline] Allergy Unknown Verified 10/03/18 21:53 triamterene [From Dyazide] Allergy Unknown Verified 10/03/18 21:53 watermelon Allergy Swelling Uncoded 10/03/18 21:53 Review of Systems ROS Statement: Those systems with pertinent positive or pertinent negative responses have been documented in the HPI. ROS Other: All systems not noted in ROS Statement are negative. Past Medical History Past Medical History: Atrial Fibrillation, COPD, Diabetes Mellitus, GERD/Reflux, Hyperlipidemia, Hypertension, Memory Impairment, Osteoarthritis (OA), Pneumonia, Thyroid Disorder Additional Past Medical History / Comment(s): Right hip infection w/wound vac in Jun.-tx. @[facility]-wound completely healed per son, SHINGLES TO RT FACE/EYE. diet controlled diabetes, osteoporosis, recent blood in stool,. ANEMIA WITH BLOOD TRANSFUSIONS. 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 Past Surgical History: Appendectomy, Heart Catheterization With Stent, Hysterectomy, Joint Replacement, Orthopedic Surgery, Tonsillectomy, Tubal Ligation Additional Past Surgical History / Comment(s): RT HIP REPLACEMENT & multiple surgeries on it due to infection Past Anesthesia/Blood Transfusion Reactions: No Reported Reaction Date of Last Stent Placement:: 2017 Past Psychological History: Depression Smoking Status: Former smoker Past Alcohol Use History: None Reported Past Drug Use History: None Reported - Past Family History Father History Unknown: Yes Family Medical History: Hypertension Additional Family Medical History / Comment(s): BRAIN TUMOR Mother Family Medical History: Cancer General Exam - General Exam Comments Initial Comments: GENERAL: Patient is well-developed and well-nourished elderly female. Patient is nontoxic and well-hydrated and is in no distress. HENT: Normocephalic, Atraumatic. Neck is soft and supple. No significant lymphadenopathy is noted. Oropharynx is clear. Moist mucous membranes. Neck has full range of motion without eliciting any pain. EYES: The sclera were anicteric and conjunctiva were pink and moist. Extraocular movements were intact and pupils were equal round and reactive to light. Eyelids were unremarkable. PULMONARY: Unlabored respirations. Good breath sounds bilaterally. No audible rales rhonchi or wheezing was noted. CARDIOVASCULAR: There is a regular rate and rhythm without any murmurs gallops or rubs. ABDOMEN: Soft and nontender with normal bowel sounds. SKIN: Skin is clear with no lesions or rashes and otherwise unremarkable. NEUROLOGIC: Patient is alert and oriented x3. Cranial nerves II through XII are grossly intact. Motor and sensory are also intact. Normal speech, volume and content. Symmetrical smile. MUSCULOSKELETAL: Normal extremities with adequate strength, decreased range of motion of right hip secondary to multiple surgeries No lower extremity swelling or edema. No calf tenderness. PSYCHIATRIC: Normal psychiatric evaluation Limitations: no limitations Course Vital Signs 10/03/18 10/03/18 21:24 23:48 Temperature 98.2 F 98.2 F Pulse Rate 72 64 Respiratory 22 19 Rate Blood Pressure 147/63 170/68 O2 Sat by Pulse 95 98 Oximetry EKG Findings - EKG Comments: EKG Findings:: EKG was obtained at 2138, EKG with a rate of 68, there is a P- wave before each QRS, rhythm is sinus there is normal axis there are normal intervals, KS 186, QRS 86, QTC is 435 there are no acute ST elevations or depressions there is no evidence of acute ischemia or infarction. Medical Decision Making - Medical Decision Making The patient was seen and evaluated, history is obtained from the patient Patient with the near syncopal episode having diarrhea Patient hemodynamically stable upon arrival with no acute complaints Labs and imaging were ordered She has nonischemic, chest x-ray unremarkable Labs were unremarkable aside from mild hypokalemia which was replaced with by mouth potassium. Patient states that she takes is a home The patient received 1 L fluid bolus Patient was reevaluated she reports she is feeling much better. Patient's con cern that the diarrhea was due to eating bad spaghetti her son at bedside states a green party thrombus out he is also concerned because she is usually on a low-sodium diet but did not adhere to this today because they're celebrating Mother's Day. At this time the patient and the son are comfortable with the plan for discharge home patient's feeling much better she was able to stand and ambulate to the wheelchair for discharge. - Lab Data Result diagrams: 10/03/18 21:44 10/03/18 21:44 Lab Results 10/03/18 10/03/18 10/03/18 Range/Units 21:44 21:44 21:44 WBC 8.0 (3.8-10.6) k/uL RBC 4.98 (3.80-5.40) m/uL Hgb 13.1 (11.4-16.0) gm/dL Hct 42.0 (34.0-46.0) % MCV 84.3 (80.0-100.0) fL MCH 26.2 (25.0-35.0) pg MCHC 31.1 (31.0-37.0) g/dL RDW 15.8 H (11.5-15.5) % Plt Count 230 (150-450) k/uL Neutrophils % 68 % Lymphocytes % 19 % Monocytes % 7 % Eosinophils % 5 % Basophils % 1 % Neutrophils # 5.4 (1.3-7.7) k/uL Lymphocytes # 1.5 (1.0-4.8) k/uL Monocytes # 0.6 (0-1.0) k/uL Eosinophils # 0.4 (0-0.7) k/uL Basophils # 0.1 (0-0.2) k/uL PT (9.0-12.0) sec INR (<1.2) APTT (22.0-30.0) sec Sodium 138 (137-145) mmol/L Potassium 3.4 L (3.5-5.1) mmol/L Chloride 103 (98-107) mmol/L Carbon Dioxide 27 (22-30) mmol/L Anion Gap 8 mmol/L BUN 20 H (7-17) mg/dL Creatinine 0.75 (0.52-1.04) mg/dL Est GFR (CKD-EPI)AfAm 88 (>60 ml/min/1.73 sqM) Est GFR (CKD-EPI)NonAf 77 (>60 ml/min/1.73 sqM) Glucose 191 H (74-99) mg/dL Calcium 10.6 H (8.4-10.2) mg/dL Magnesium 1.9 (1.6-2.3) mg/dL Total Bilirubin 0.2 (0.2-1.3) mg/dL AST 15 (14-36) U/L ALT 19 (9-52) U/L Alkaline Phosphatase 101 (38-126) U/L Troponin I (0.000-0.034) ng/mL NT-Pro-B Natriuret Pep 106 pg/mL Total Protein 6.5 (6.3-8.2) g/dL Albumin 4.1 (3.5-5.0) g/dL 10/03/18 10/03/18 Range/Units 21:44 21:44 WBC (3.8-10.6) k/uL RBC (3.80-5.40) m/uL Hgb (11.4-16.0) gm/dL Hct (34.0-46.0) % MCV (80.0-100.0) fL MCH (25.0-35.0) pg MCHC (31.0-37.0) g/dL RDW (11.5-15.5) % Plt Count (150-450) k/uL Neutrophils % % Lymphocytes % % Monocytes % % Eosinophils % % Basophils % % Neutrophils # (1.3-7.7) k/uL Lymphocytes # (1.0-4.8) k/uL Monocytes # (0-1.0) k/uL Eosinophils # (0-0.7) k/uL Basophils # (0-0.2) k/uL PT 12.6 H (9.0-12.0) sec INR 1.2 H (<1.2) APTT 34.3 H (22.0-30.0) sec Sodium (137-145) mmol/L Potassium (3.5-5.1) mmol/L Chloride (98-107) mmol/L Carbon Dioxide (22-30) mmol/L Anion Gap mmol/L BUN (7-17) mg/dL Creatinine (0.52-1.04) mg/dL Est GFR (CKD-EPI)AfAm (>60 ml/min/1.73 sqM) Est GFR (CKD-EPI)NonAf (>60 ml/min/1.73 sqM) Glucose (74-99) mg/dL Calcium (8.4-10.2) mg/dL Magnesium (1.6-2.3) mg/dL Total Bilirubin (0.2-1.3) mg/dL AST (14-36) U/L ALT (9-52) U/L Alkaline Phosphatase (38-126) U/L Troponin I <0.012 (0.000-0.034) ng/mL NT-Pro-B Natriuret Pep pg/mL Total Protein (6.3-8.2) g/dL Albumin (3.5-5.0) g/dL Disposition Clinical Impression: Near syncope Disposition: HOME SELF-CARE Condition: Stable Instructions (If sedation given, give patient instructions): Near Syncope (ED) Is patient prescribed a controlled substance at d/c from ED?: No Referrals: Kiara,Maryann, DO [Primary Care Provider] - 1-2 days
[2018-10-03 22:03] LABS: Basophils # (A) 0.1 k/uL (0-0.2); Basophils % (A) 1 %; Eosinophils # (A) 0.4 k/uL (0-0.7); Eosinophils % (A) 5 %; HGB 13.1 gm/dL (11.4-16.0); Lymphocytes # (A) 1.5 k/uL (1.0-4.8); Lymphocytes % (A) 19 %; MCH 26.2 pg (25.0-35.0); MCHC 31.1 g/dL (31.0-37.0); MCV 84.3 fL (80.0-100.0); Mean Platelet Volume 8.2; Monocytes # (A) 0.6 k/uL (0-1.0); Monocytes % (A) 7 %; Neutrophils # (A) 5.4 k/uL (1.3-7.7); Neutrophils % (A) 68 %; Platelet Count 230 k/uL (150-450); RBC 4.98 m/uL (3.80-5.40); RDW 15.8 % (11.5-15.5)
[2018-10-03] MEDS ORDERED: SODIUM CHLORIDE 0.9% 1,000 ML IV ONE (22:04)
[2018-10-03 22:10] LABS: Albumin 4.1 g/dL (3.5-5.0); Calcium 10.6 mg/dL (8.4-10.2); Magnesium 1.9 mg/dL (1.6-2.3); Potassium 3.4 mmol/L (3.5-5.1); Total Bilirubin 0.2 mg/dL (0.2-1.3); Total Protein 6.5 g/dL (6.3-8.2)
[2018-10-03 22:11] LABS: INR 1.2 (<1.2); Partial Thromboplastin Time 34.3 sec (22.0-30.0); Prothrombin Time 12.6 sec (9.0-12.0)
--- NOTE | 2018-10-03 22:57 | XR ---
EXAM: XR Chest, 2 Views CLINICAL HISTORY: difficulty breathing TECHNIQUE: Frontal and lateral views of the chest. COMPARISON: 06/16/2018 FINDINGS: Lungs: Query mild pulmonary vascular congestion. Hypoventilatory lungs. No consolidation. Pleural space: Unremarkable. No pneumothorax. Heart: Stable cardiomediastinal silhouette. Mediastinum: See above. Bones/joints: No acute osseous abnormality. Tubes, lines and devices: Telemetry leads overlie the patient. IMPRESSION: Query mild pulmonary vascular congestion.
[2018-10-03] MEDS ORDERED: POTASSIUM CHLORIDE ER 20 MEQ TAB.ER PO STA (23:04)
[2018-10-03 23:50] VITALS: BP 170/68; PULSE 64; RESP 19
== END 2018-10-03 23:50 | disposition home or self-care (01) ==
LOC: EC 21:17
DX: R55 Syncope and collapse (principal); E87.6 Hypokalemia; R19.7 Diarrhea, unspecified; R29.898 Other symptoms and signs involving the musculoskeletal system; K59.09 Other constipation; I48.91 Unspecified atrial fibrillation; E11.9 Type 2 diabetes mellitus without complications; E78.5 Hyperlipidemia, unspecified; I10 Essential (primary) hypertension; M19.90 Unspecified osteoarthritis, unspecified site; E07.9 Disorder of thyroid, unspecified; D64.9 Anemia, unspecified; F32.9 Major depressive disorder, single episode, unspecified; Z87.891 Personal history of nicotine dependence; Z88.0 Allergy status to penicillin; Z88.1 Allergy status to other antibiotic agents; Z88.2 Allergy status to sulfonamides; Z88.5 Allergy status to narcotic agent; Z88.8 Allergy status to other drugs, medicaments and biological substances; Z91.018 Allergy to other foods; Z79.82 Long term (current) use of aspirin; Z79.890 Hormone replacement therapy; Z79.899 Other long term (current) drug therapy; Z86.14 Personal history of Methicillin resistant Staphylococcus aureus infection; Z90.49 Acquired absence of other specified parts of digestive tract; Z95.818 Presence of other cardiac implants and grafts; Z96.641 Presence of right artificial hip joint; Z98.890 Other specified postprocedural states
CPT/HCPCS: 36415; 71046; 80053; 83735; 83880; 84484; 85025; 85610; 85730; 93005; 96360; 99285

== ENCOUNTER → 2019-06-09 | Outpatient (CLI) | payer MEDICARE, BC ==
[~2019-06-09] MED LIST: AMINOPHYLLINE 500 MG/20 ML VIAL IV ONE; REGADENOSON 0.4 MG/5 ML SYRINGE IV ONE
--- NOTE | 2019-06-09 11:12 | NM ---
EXAMINATION TYPE: NM stress lexiscan cardiolite DATE OF EXAM: 06/09/2019 COMPARISON: NONE HISTORY: 79-year-old female atherosclerotic heart disease with chest pain, difficulty in breathing, p alpitations, angina, hypertension, and high cholesterol. TECHNIQUE: After the intravenous administration of 9.8 mCi Tc 99m Sestamibi - Cardiolite resting SPE CT images acquired 65 minutes post injection. The patient received 0.4mg Lexiscan, 27 mCi Tc 99m Sestamibi - Stress images obtained 45 minutes post injection FINDINGS: Review of stress and rest SPECT images demonstrates possible slight diminished activity along the inf erolateral basal wall on stress. No other distinct perfusion abnormality. Gated analysis shows lupe l wall motion with an estimated left ventricular ejection fraction of 63 %. TID is calculated at 1.0 , within normal limits. IMPRESSION: Possible very subtle, small area of reversibility along the inferolateral basal wall. No other findin gs of inducible ischemia.
--- NOTE | 2019-06-10 13:29 | EST ---
EXERCISE STRESS AGE: 79 SEX: F HT: 64" WT: 210 PROTOCOL: Lexiscan Cardiolite Stress Test HEART RATE REST: 64 BLOOD PRESSURE REST: 116/61 MAXIMUM HEART RATE ACHIEVED: 70 MAXIMUM BLOOD PRESSURE: 133/84 85% MPHR: 120 100% MPHR: 141 INDICATIONS: Atherosclerotic heart disease. CLINICAL INFORMATION: Lexiscan nuclear study was performed, peak heart rate of 70 was achieved. Maximum blood pressure of 133/84 mmHg was noted. Resting EKG shows normal sinus rhythm with normal NH interval and QRS duration and normal ST-T waves. No ST-segment depression suggestive of ischemia was noted during Lexiscan injection. FINAL IMPRESSION: There is no evidence of any ST-segment changes suggestive of ischemia during Lexiscan injection. The results of the nuclear study will follow. MMRITA / SARAHN: [id number] /
== END | disposition home or self-care (01) ==
LOC: RADNMMAIN 07:44
PROVIDERS: ATTEND Internal Medicine Cardiovascular Disease
DX: I25.10 Atherosclerotic heart disease of native coronary artery without angina pectoris (principal)
CPT/HCPCS: 93017; 78452; A9500; J0280; J2785

== ENCOUNTER 2019-07-24 00:17 | Emergency (ER) | payer MEDICARE, BC ==
[2019-07-24 00:25] VITALS: TEMP 97.9
[2019-07-24] MEDS ORDERED: TOPICAL SKIN ADHESIVE 1 EACH AMP TOPICAL ONE ×2 (01:32→01:56)
[2019-07-24] MEDS ORDERED: DIPH,PERTUS(ACELL)TETVAC-LF 0.5 ML VIAL IM ONE (01:45)
--- NOTE | 2019-07-24 01:46 | ED ---
General Adult HPI - General Chief complaint: Wound/Laceration Stated complaint: leg bleeding/on 3 blood thinners Time Seen by Provider: 07/24/19 00:29 Source: patient, family, RN notes reviewed, old records reviewed Mode of arrival: wheelchair Limitations: no limitations - History of Present Illness Initial comments: 79-year-old female patient past medical history atypical fibrillation, COPD, coronary artery disease presents ED for bleeding scabbed. Patient reports that she is anticoagulated on Plavix, daily aspirin, xaralto. She reports that she picked a scab on her right anterior thigh regions been having a slow bleed for the last few hours. Denies any pain shortness of breath abdominal pain other areas of bleeding. Systemic: Pt denies fatigue, fever/chills, rash. Pt denies weakness, night sweats, weight loss. Neuro: Pt denies headache, visual disturbances, syncope or pre-syncope. HEENT: Pt denies ocular discharge or irritation, otalgia, rhinorrhea, pharyngitis or notable lymphadenopathy. Cardiopulmonary: Pt denies chest pain, SOB, heart palpitations, dyspnea on exertion. Abdominal/GI: Pt denies abdominal pain, n/v/d. : Pt denies dysuria, burning w/ urination, frequency/urgency. Denies new onset urinary or bowel incontinence. MSK: Pt denies myalgia, loss of strength or function in extremities. Neuro: Pt denies new onset weakness, paresthesias. - Related Data Home Medications Medication Instructions Recorded Confirmed Levothyroxine Sodium [Synthroid] 150 mcg PO DAILY 09/30/13 10/03/18 Pravastatin Sodium [Pravachol] 80 mg PO HS 11/07/14 10/03/18 Mirabegron [Myrbetriq] 25 mg PO DAILY 06/01/18 10/03/18 Multivitamins, Thera [Multivitamin 1 tab PO DAILY 06/01/18 10/03/18 (formulary)] Sotalol [Betapace] 80 mg PO BID 06/01/18 10/03/18 Vortioxetine Hydrobromide 10 mg PO DAILY 06/01/18 10/03/18 [Trintellix] Ferrous Sulfate [Iron (65 MG 325 mg PO DAILY 06/16/18 10/03/18 Elemental)] amLODIPine [Norvasc] 5 mg PO DAILY@0900 06/16/18 10/03/18 Aspirin [[place] Aspirin EC] 81 mg PO DAILY 06/28/18 10/03/18 Cyanocobalamin (Vitamin B-12) 5,000 mcg PO DAILY 06/28/18 10/03/18 [Vitamin B-12] Potassium Chloride 10 meq PO DAILY 06/28/18 10/03/18 Furosemide [Lasix] 20 mg PO DAILY 08/18/18 10/03/18 Losartan/Hydrochlorothiazide 1 tab PO DAILY 08/18/18 10/03/18 [Losartan-Hctz 100-25 mg Tab] Ticagrelor [Brilinta] 90 mg PO BID 10/03/18 10/03/18 Previous Rx's Medication Instructions Recorded Rivaroxaban [Xarelto] 15 mg PO W/SUPPER tab 06/18/18 Sennosides-Docusate Sodium 2 tab PO DAILY #60 tablet 09/15/18 [Senokot-S] Pantoprazole [Protonix] 40 mg PO AC-BID #60 tablet. 09/16/18 Allergies Allergy/AdvReac Type Severity Reaction Status Date / Time atorvastatin calcium Allergy MUSCLE Verified 07/24/19 00:25 [From Lipitor] ACHES azithromycin Allergy Rash/Hives Verified 07/24/19 00:25 [From Zithromax Z-Chau] codeine Allergy Unknown Verified 07/24/19 00:25 hydrochlorothiazide Allergy Unknown Verified 07/24/19 00:25 [From Dyazide] lincomycin HCl Allergy Unknown Verified 07/24/19 00:25 [From Lincocin] meperidine HCl [From Demerol] Allergy Unknown Verified 07/24/19 00:25 metronidazole [From Flagyl] Allergy Unknown Verified 07/24/19 00:25 Metronidazole HCl Allergy Unknown Verified 07/24/19 00:25 [From Flagyl] Penicillins Allergy Unknown Verified 07/24/19 00:25 rosuvastatin calcium Allergy MUSCLE Verified 07/24/19 00:25 [From Crestor] ACHES Sulfa (Sulfonamide Allergy Unknown Verified 07/24/19 00:25 Antibiotics) tetracycline [Tetracycline] Allergy Unknown Verified 07/24/19 00:25 triamterene [From Dyazide] Allergy Unknown Verified 07/24/19 00:25 watermelon Allergy Swelling Uncoded 07/24/19 00:25 Review of Systems ROS Statement: Those systems with pertinent positive or pertinent negative responses have been documented in the HPI. ROS Other: All systems not noted in ROS Statement are negative. Past Medical History Past Medical History: Atrial Fibrillation, COPD, Diabetes Mellitus, GERD/Reflux, Hyperlipidemia, Hypertension, Memory Impairment, Osteoarthritis (OA), Pneumonia, Thyroid Disorder Additional Past Medical History / Comment(s): Right hip infection w/wound vac in Jun.-tx. @[facility]-wound completely healed per son, SHINGLES TO RT FACE/EYE. diet controlled diabetes, osteoporosis, recent blood in stool,. ANEMIA WITH BLOOD TRANSFUSIONS. 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 Past Surgical History: Appendectomy, Heart Catheterization With Stent, Hysterectomy, Joint Replacement, Orthopedic Surgery, Tonsillectomy, Tubal Ligation Additional Past Surgical History / Comment(s): RT HIP REPLACEMENT & multiple surgeries on it due to infection Past Anesthesia/Blood Transfusion Reactions: No Reported Reaction Date of Last Stent Placement:: 2017 Past Psychological History: Depression Smoking Status: Former smoker Past Alcohol Use History: None Reported Past Drug Use History: None Reported - Past Family History Father History Unknown: Yes Family Medical History: Hypertension Additional Family Medical History / Comment(s): BRAIN TUMOR Mother Family Medical History: Cancer General Exam - General Exam Comments Initial Comments: Constitutional: NAD, AOX3, Pt has pleasant affect. HEENT: NC/AT, trachea midline, neck supple, no lymphadenopathy. Posterior pharynx non erythematous, without exudates. External ears appear normal, without discharge. Mucous membranes moist. Eyes PERRLA, EOM intact. There is no scleral icterus. No pallor noted. No bleeding noted oral mucosa. Cardiopulmonary: RRR, no murmurs, rubs or gallops, no JVD noted. Lungs CTAB in anterior and posterior keen. No peripheral edema. Abdominal exam: Abdomen soft and non-distended. Abdomen non-tender to palpation in all 4 quadrants. Bowel sounds active in LLQ. No hepatosplenomegaly. No ecchymosis Neuro: CN II-XII grossly intact. No nuchal rigidity. No raccon eyes, no beyer sign, no hemotympanum. No cervical spinal tenderness. MSK: Small oozing bleeder in anterior thigh region. Direct pressure and exofin was applied, hemostasis was achieved. No posterior calf tenderness bilaterally, homans sign negative bilaterally. Posterior tibialis and radial pulse +2 bilaterally. Sensation intact in upper and lower extremities. Full active ROM in upper and lower extremities, 5/5 stregnth. Limitations: no limitations Course Vital Signs 07/24/19 00:20 Temperature 97.9 F Pulse Rate 62 Respiratory 20 Rate Blood Pressure 170/83 O2 Sat by Pulse 97 Oximetry Medical Decision Making - Medical Decision Making 79-year-old female patient past medical history atypical fibrillation, COPD, coronary artery disease presents ED for bleeding scabbed. Patient reports that she is anticoagulated on Plavix, daily aspirin, xaralto. She reports that she picked a scab on her right anterior thigh regions been having a slow bleed for the last few hours. Denies any pain shortness of breath abdominal pain other areas of bleeding. Pt VS displayed mild hypertension, pt will monitor blood pressure at home. Denies any symptoms. Small oozing bleeder in anterior thigh region. Direct pressure and exofin was applied, hemostasis was achieved. Patient was discharged to follow up with primary caregiver and will return to ER physician worsen. Case discussed with Dr. Espino. Disposition Clinical Impression: Abrasion Disposition: HOME SELF-CARE Condition: Stable Instructions (If sedation given, give patient instructions): Abrasion (ED) Additional Instructions: Follow-up with primary care provider tomorrow. The glue will come off on its own in around 1 week. Return to ER if condition worsens in any way. Is patient prescribed a controlled substance at d/c from ED?: No Referrals: Maryann Craig DO [Primary Care Provider] - 1-2 days
[2019-07-24 02:57] VITALS: BP 150/61; PULSE 60; RESP 18
== END 2019-07-24 02:56 | disposition home or self-care (01) ==
LOC: EC 00:17
DX: S70.311A Abrasion, right thigh, initial encounter (principal); I10 Essential (primary) hypertension; I48.91 Unspecified atrial fibrillation; J44.9 Chronic obstructive pulmonary disease, unspecified; F32.9 Major depressive disorder, single episode, unspecified; E11.9 Type 2 diabetes mellitus without complications; E78.5 Hyperlipidemia, unspecified; M19.90 Unspecified osteoarthritis, unspecified site; E07.9 Disorder of thyroid, unspecified; M81.0 Age-related osteoporosis without current pathological fracture; I25.10 Atherosclerotic heart disease of native coronary artery without angina pectoris; Z79.01 Long term (current) use of anticoagulants; Z79.02 Long term (current) use of antithrombotics/antiplatelets; Z79.82 Long term (current) use of aspirin; Z79.890 Hormone replacement therapy; Z79.899 Other long term (current) drug therapy; Z88.1 Allergy status to other antibiotic agents; Z23 Encounter for immunization; Z88.2 Allergy status to sulfonamides; Z88.0 Allergy status to penicillin; Z88.8 Allergy status to other drugs, medicaments and biological substances; Z91.018 Allergy to other foods; Z88.5 Allergy status to narcotic agent; Z95.5 Presence of coronary angioplasty implant and graft; Z96.641 Presence of right artificial hip joint; Z87.891 Personal history of nicotine dependence; Z86.14 Personal history of Methicillin resistant Staphylococcus aureus infection; Z82.49 Family history of ischemic heart disease and other diseases of the circulatory system; X58.XXXA Exposure to other specified factors, initial encounter
CPT/HCPCS: 90471; 90715; 99283

== ENCOUNTER → 2021-06-06 | Outpatient (CLI) | payer MEDICARE, BC ==
[2021-06-06 15:54] LABS: Basophils # (A) 0.04 X 10*3/uL (0.00-0.10); Basophils % (A) 0.5 %; Eosinophils # (A) 0.25 X 10*3/uL (0.04-0.35); Lymphocytes # (A) 1.13 X 10*3/uL (0.90-5.00); Lymphocytes % (A) 13.7 %; MCH 29.8 pg (27.0-32.0); MCHC 31.8 g/dL (32.0-37.0); MCV 93.6 fL (80.0-97.0); Mean Platelet Volume 12.3 fL (9.5-12.2); Monocytes # (A) 0.84 X 10*3/uL (0.20-1.00); Monocytes % (A) 10.2 %; Neutrophils # (A) 5.93 X 10*3/uL (1.80-7.70); Platelet Count 233 X 10*3/uL (140-440); RDW 12.9 % (11.5-14.5); WBC 8.24 X 10*3/uL (4.50-10.00)
[2021-06-06 16:44] LABS: Chol/HDL Ratio 4.27 Ratio; LDL Cholesterol,Calculated 114.2 mg/dL (0.0-131.0)
[2021-06-06 17:08] LABS: ALT 12 U/L (8-44); AST 16 U/L (13-35); African American GFR (CKD) 80.1 (60.0-200.0); Albumin 4.3 g/dL (3.8-4.9); Albumin/Globulin Ratio 1.87 (1.60-3.17); Alkaline Phosphatase 101 U/L (41-126); BUN/Creat Ratio 13.13 Ratio (12.00-20.00); Blood Urea Nitrogen 10.5 mg/dL (9.0-27.0); Calcium 10.7 mg/dL (8.7-10.3); Carbon Dioxide 25.5 mmol/L (20.0-27.5); Chloride 102 mmol/L (96-109); Globulin 2.3 g/dL (1.6-3.3); Glucose 125 mg/dL (70-110); Non-African American GFR(CKD) 69.1 (60.0-200.0); Sodium 139 mmol/L (135-145); Total Protein 6.6 g/dL (6.2-8.2)
== END | disposition home or self-care (01) ==
LOC: LABWHC1 10:19
PROVIDERS: ATTEND Family Medicine
DX: I10 Essential (primary) hypertension (principal); E78.2 Mixed hyperlipidemia; R73.01 Impaired fasting glucose
CPT/HCPCS: 36415; 80053; 80061; 83036; 85025

== ENCOUNTER 2021-06-22 15:16 | Emergency (ER) | payer MEDICARE, BC ==
[2021-06-22 15:39] VITALS: RESP 18; TEMP 99.5
[2021-06-22] MEDS ORDERED: SODIUM CHLORIDE 0.9% 500 ML 500 ML IV STA (16:15)
--- NOTE | 2021-06-22 16:44 | XR ---
EXAMINATION TYPE: XR chest 2V DATE OF EXAM: 06/22/2021 COMPARISON: 10/03/2018 HISTORY: Syncope TECHNIQUE: 2 views FINDINGS: There is no heart failure nor confluent pneumonic infiltrate. Costophrenic angles are clear . There are no hilar masses. Bony thorax is intact. IMPRESSION: No active cardiopulmonary disease. No change.
--- NOTE | 2021-06-22 16:59 | ED ---
General Adult HPI - General Chief complaint: Dizziness Stated complaint: dizziness Time Seen by Provider: 06/22/21 16:06 Source: patient, RN notes reviewed, old records reviewed Mode of arrival: ambulatory Limitations: no limitations - History of Present Illness Initial comments: 81-year-old female presented for evaluation of dizziness and recent UTI. Patient describes dizziness as worse with standing. History is obtained both from the patient and her son is at bedside. She does have some baseline dementia and history is somewhat limited. There is been no pain complaints. No reports of focal numbness or weakness. - Related Data Home Medications Medication Instructions Recorded Confirmed Levothyroxine Sodium [Synthroid] 150 mcg PO DAILY 09/30/13 06/22/21 Pravastatin Sodium [Pravachol] 80 mg PO HS 11/07/14 06/22/21 Multivitamins, Thera [Multivitamin 1 tab PO DAILY 06/01/18 06/22/21 (formulary)] Sotalol [Betapace] 80 mg PO BID 06/01/18 06/22/21 Vortioxetine Hydrobromide 10 mg PO DAILY 06/01/18 06/22/21 [Trintellix] Ferrous Sulfate [Iron (65 MG 325 mg PO DAILY 06/16/18 06/22/21 Elemental)] amLODIPine [Norvasc] 5 mg PO DAILY 06/16/18 06/22/21 Aspirin [[place] Aspirin EC] 81 mg PO DAILY 06/28/18 06/22/21 Cyanocobalamin (Vitamin B-12) 5,000 mcg PO DAILY 06/28/18 06/22/21 [Vitamin B-12] Losartan/Hydrochlorothiazide 1 tab PO DAILY 08/18/18 06/22/21 [Losartan-Hctz 100-25 mg Tab] Donepezil [Aricept] 10 mg PO DAILY 06/22/21 06/22/21 Memantine [Namenda] 10 mg PO BID 06/22/21 06/22/21 Mirabegron [Myrbetriq] 50 mg PO DAILY 06/22/21 06/22/21 Nitrofurantoin Monohyd/M-Cryst 100 mg PO Q12HR 06/22/21 06/22/21 [Macrobid] Sennosides-Docusate Sodium 1 tab PO HS 06/22/21 06/22/21 [Senokot-S] Previous Rx's Medication Instructions Recorded Rivaroxaban [Xarelto] 15 mg PO W/SUPPER tab 06/18/18 Pantoprazole [Protonix] 40 mg PO AC-BID #60 tablet. 09/16/18 Cephalexin [Keflex] 500 mg PO TID 7 Days #21 cap 06/22/21 Allergies Allergy/AdvReac Type Severity Reaction Status Date / Time atorvastatin calcium Allergy MUSCLE Verified 06/22/21 17:21 [From Lipitor] ACHES azithromycin Allergy Rash/Hives Verified 06/22/21 17:21 [From Zithromax Z-Chau] codeine Allergy Unknown Verified 06/22/21 17:21 hydrochlorothiazide Allergy Unknown Verified 06/22/21 17:21 [From Dyazide] lincomycin HCl Allergy Unknown Verified 06/22/21 17:21 [From Lincocin] meperidine HCl [From Demerol] Allergy Unknown Verified 06/22/21 17:21 metronidazole [From Flagyl] Allergy Unknown Verified 06/22/21 17:21 Metronidazole HCl Allergy Unknown Verified 06/22/21 17:21 [From Flagyl] Penicillins Allergy Unknown Verified 06/22/21 17:21 rosuvastatin calcium Allergy MUSCLE Verified 06/22/21 17:21 [From Crestor] ACHES Sulfa (Sulfonamide Allergy Unknown Verified 06/22/21 17:21 Antibiotics) tetracycline [Tetracycline] Allergy Unknown Verified 06/22/21 17:21 triamterene [From Dyazide] Allergy Unknown Verified 06/22/21 17:21 watermelon Allergy Swelling Uncoded 06/22/21 15:39 Review of Systems ROS Statement: Those systems with pertinent positive or pertinent negative responses have been documented in the HPI. ROS Other: All systems not noted in ROS Statement are negative. Past Medical History Past Medical History: Atrial Fibrillation, COPD, Diabetes Mellitus, GERD/Reflux, Hyperlipidemia, Hypertension, Memory Impairment, Osteoarthritis (OA), Pneumonia, Thyroid Disorder Additional Past Medical History / Comment(s): Right hip infection w/wound vac in Jun.-tx. @[facility]-wound completely healed per son, SHINGLES TO RT FACE/EYE. diet controlled diabetes, osteoporosis, recent blood in stool,. ANEMIA WITH BLOOD TRANSFUSIONS. 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 Past Surgical History: Appendectomy, Heart Catheterization With Stent, Hysterectomy, Joint Replacement, Orthopedic Surgery, Tonsillectomy, Tubal Ligation Additional Past Surgical History / Comment(s): RT HIP REPLACEMENT & multiple surgeries on it due to infection Past Anesthesia/Blood Transfusion Reactions: No Reported Reaction Date of Last Stent Placement:: 2017 Past Psychological History: Depression Smoking Status: Never smoker Past Alcohol Use History: None Reported Past Drug Use History: None Reported - Past Family History Father History Unknown: Yes Family Medical History: Hypertension Additional Family Medical History / Comment(s): BRAIN TUMOR Mother Family Medical History: Cancer General Exam Limitations: no limitations General appearance: alert, in no apparent distress Head exam: Present: atraumatic, normocephalic Eye exam: Present: normal appearance, PERRL ENT exam: Present: normal exam Neck exam: Present: normal inspection. Absent: tenderness, meningismus Respiratory exam: Present: normal lung sounds bilaterally. Absent: respiratory distress, wheezes Cardiovascular Exam: Present: regular rate, normal rhythm GI/Abdominal exam: Present: soft. Absent: distended, tenderness Neurological exam: Present: alert. Absent: motor sensory deficit Psychiatric exam: Present: normal affect, normal mood Skin exam: Present: warm, dry, intact. Absent: cyanosis, diaphoretic Course Vital Signs 06/22/21 15:36 Temperature 99.5 F Pulse Rate 78 Respiratory 18 Rate Blood Pressure 150/63 O2 Sat by Pulse 96 Oximetry EKG Findings - EKG Comments: EKG Findings:: EKG: Normal sinus rhythm rate of 80, HI interval 172, QRS duration 86, QTC 426 artifact in the precordial leads but no suspected ST segment elevation. Medical Decision Making - Medical Decision Making 81-year-old female with an episode of lightheadedness. Patient has stable vitals. She has no focal findings on neuro exam. No fall or injury. She is in sinus rhythm.. She has a leukocytosis 15.3, normal electrolytes, mildly elevated blood glucose, negative troponin, urinalysis showed 40 white cells. She was started on Macrobid yesterday. I filled this is likely the cause of her lightheadedness. She's given some IV fluid as well as IV ceftriaxone in the emergency department. I did offer observation but the patient wants to go home at this time. She will maintain oral hydration. She does live with her son who is at bedside and also wishes for the patient to be discharged. She will follow with her primary care physician. - Lab Data Result diagrams: 06/22/21 17:05 06/22/21 17:05 Lab Results 06/22/21 06/22/21 06/22/21 Range/Units 17:05 17:05 17:05 WBC 15.3 H (3.8-10.6) k/uL RBC 4.65 (3.80-5.40) m/uL Hgb 14.4 (11.4-16.0) gm/dL Hct 43.1 (34.0-46.0) % MCV 92.7 (80.0-100.0) fL MCH 31.0 (25.0-35.0) pg MCHC 33.4 (31.0-37.0) g/dL RDW 13.3 (11.5-15.5) % Plt Count 233 (150-450) k/uL MPV 8.9 Neutrophils % 90 % Lymphocytes % 3 % Monocytes % 5 % Eosinophils % 1 % Basophils % 0 % Neutrophils # 13.7 H (1.3-7.7) k/uL Lymphocytes # 0.5 L (1.0-4.8) k/uL Monocytes # 0.8 (0-1.0) k/uL Eosinophils # 0.2 (0-0.7) k/uL Basophils # 0.1 (0-0.2) k/uL PT 10.8 (9.0-12.0) sec INR 1.0 (<1.2) APTT 29.1 (22.0-30.0) sec Sodium 137 (137-145) mmol/L Potassium 3.9 (3.5-5.1) mmol/L Chloride 105 (98-107) mmol/L Carbon Dioxide 28 (22-30) mmol/L Anion Gap 4 mmol/L BUN 23 H (7-17) mg/dL Creatinine 1.03 (0.52-1.04) mg/dL Est GFR (CKD-EPI)AfAm 59 (>60 ml/min/1.73 sqM) Est GFR (CKD-EPI)NonAf 51 (>60 ml/min/1.73 sqM) Glucose 178 H (74-99) mg/dL Calcium 10.7 H (8.4-10.2) mg/dL Magnesium 2.1 (1.6-2.3) mg/dL Total Bilirubin 0.6 (0.2-1.3) mg/dL AST 20 (14-36) U/L ALT 17 (4-34) U/L Alkaline Phosphatase 99 (38-126) U/L Troponin I (0.000-0.034) ng/mL Total Protein 6.7 (6.3-8.2) g/dL Albumin 3.9 (3.5-5.0) g/dL Urine Color Urine Appearance (Clear) Urine pH (5.0-8.0) Ur Specific [place] (1.001-1.035) Urine Protein (Negative) Urine Glucose (UA) (Negative) Urine Ketones (Negative) Urine Blood (Negative) Urine Nitrite (Negative) Urine Bilirubin (Negative) Urine Urobilinogen (<2.0) mg/dL Ur Leukocyte Esterase (Negative) Urine RBC (0-5) /hpf Urine WBC (0-5) /hpf Ur Squamous Epith Cells (0-4) /hpf Urine Mucus (None) /hpf 06/22/21 06/22/21 Range/Units 17:05 17:24 WBC (3.8-10.6) k/uL RBC (3.80-5.40) m/uL Hgb (11.4-16.0) gm/dL Hct (34.0-46.0) % MCV (80.0-100.0) fL MCH (25.0-35.0) pg MCHC (31.0-37.0) g/dL RDW (11.5-15.5) % Plt Count (150-450) k/uL MPV Neutrophils % % Lymphocytes % % Monocytes % % Eosinophils % % Basophils % % Neutrophils # (1.3-7.7) k/uL Lymphocytes # (1.0-4.8) k/uL Monocytes # (0-1.0) k/uL Eosinophils # (0-0.7) k/uL Basophils # (0-0.2) k/uL PT (9.0-12.0) sec INR (<1.2) APTT (22.0-30.0) sec Sodium (137-145) mmol/L Potassium (3.5-5.1) mmol/L Chloride (98-107) mmol/L Carbon Dioxide (22-30) mmol/L Anion Gap mmol/L BUN (7-17) mg/dL Creatinine (0.52-1.04) mg/dL Est GFR (CKD-EPI)AfAm (>60 ml/min/1.73 sqM) Est GFR (CKD-EPI)NonAf (>60 ml/min/1.73 sqM) Glucose (74-99) mg/dL Calcium (8.4-10.2) mg/dL Magnesium (1.6-2.3) mg/dL Total Bilirubin (0.2-1.3) mg/dL AST (14-36) U/L ALT (4-34) U/L Alkaline Phosphatase (38-126) U/L Troponin I <0.012 (0.000-0.034) ng/mL Total Protein (6.3-8.2) g/dL Albumin (3.5-5.0) g/dL Urine Color Yellow Urine Appearance Cloudy H (Clear) Urine pH 5.5 (5.0-8.0) Ur Specific [place] 1.012 (1.001-1.035) Urine Protein Trace H (Negative) Urine Glucose (UA) Negative (Negative) Urine Ketones Negative (Negative) Urine Blood Negative (Negative) Urine Nitrite Negative (Negative) Urine Bilirubin Negative (Negative) Urine Urobilinogen <2.0 (<2.0) mg/dL Ur Leukocyte Esterase Large H (Negative) Urine RBC 4 (0-5) /hpf Urine WBC 40 H (0-5) /hpf Ur Squamous Epith Cells 3 (0-4) /hpf Urine Mucus Rare H (None) /hpf Disposition Clinical Impression: Dehydration, UTI (urinary tract infection) Disposition: HOME SELF-CARE Condition: Fair Instructions (If sedation given, give patient instructions): Dehydration (ED), Urinary Tract Infection in Women (ED) Prescriptions: Cephalexin [Keflex] 500 mg PO TID 7 Days #21 cap Is patient prescribed a controlled substance at d/c from ED?: No Referrals: Maryann Craig DO [Primary Care Provider] - 1-2 days Time of Disposition: 17:59
[2021-06-22 17:30] LABS: Albumin 3.9 g/dL (3.5-5.0); Calcium 10.7 mg/dL (8.4-10.2); Magnesium 2.1 mg/dL (1.6-2.3); Potassium 3.9 mmol/L (3.5-5.1); Total Bilirubin 0.6 mg/dL (0.2-1.3); Total Protein 6.7 g/dL (6.3-8.2)
[2021-06-22 17:43] LABS: Basophils # (A) 0.1 k/uL (0-0.2); Basophils % (A) 0 %; Eosinophils # (A) 0.2 k/uL (0-0.7); Eosinophils % (A) 1 %; HCT 43.1 % (34.0-46.0); HGB 14.4 gm/dL (11.4-16.0); Lymphocytes # (A) 0.5 k/uL (1.0-4.8); Lymphocytes % (A) 3 %; MCHC 33.4 g/dL (31.0-37.0); MCV 92.7 fL (80.0-100.0); Mean Platelet Volume 8.9; Monocytes # (A) 0.8 k/uL (0-1.0); Monocytes % (A) 5 %; Neutrophils # (A) 13.7 k/uL (1.3-7.7); Neutrophils % (A) 90 %; Partial Thromboplastin Time 29.1 sec (22.0-30.0); Platelet Count 233 k/uL (150-450); Prothrombin Time 10.8 sec (9.0-12.0); RBC 4.65 m/uL (3.80-5.40); RDW 13.3 % (11.5-15.5); WBC 15.3 k/uL (3.8-10.6)
[2021-06-22 17:48] LABS: Appearance,Urine Cloudy (Clear); Bilirubin,Urine Negative (Negative); Blood,Urine Negative (Negative); Color,Urine Yellow; Glucose,Urine (UA) Negative (Negative); Ketones,Urine Negative (Negative); Leukocyte Esterase,Urine Large (Negative); Mucus,Urine Rare /hpf; Nitrite,Urine Negative (Negative); PH, Urine 5.5 (5.0-8.0); Protein,Urine Trace (Negative); RBC,Urine 4 /hpf (0-5); Specific Gravity,Urine 1.012 (1.001-1.035); Squamous Epithelial Cell,Urine 3 /hpf (0-4); Urobilinogen,Urine <2.0 mg/dL (<2.0); WBC,Urine 40 /hpf (0-5)
[2021-06-22] MEDS ORDERED: cefTRIAXone IN SWFI 1,000 MG/10 ML SYRINGE IVP STA (17:50)
[2021-06-22 18:37] VITALS: BP 138/65; PULSE 74
== END 2021-06-22 18:36 | disposition home or self-care (01) ==
LOC: EC 15:16
DX: E86.0 Dehydration (principal); N39.0 Urinary tract infection, site not specified; I48.91 Unspecified atrial fibrillation; J44.9 Chronic obstructive pulmonary disease, unspecified; E11.9 Type 2 diabetes mellitus without complications; K21.9 Gastro-esophageal reflux disease without esophagitis; E78.5 Hyperlipidemia, unspecified; I10 Essential (primary) hypertension; M19.90 Unspecified osteoarthritis, unspecified site; E07.9 Disorder of thyroid, unspecified; F32.A Depression, unspecified; Z79.82 Long term (current) use of aspirin; Z88.5 Allergy status to narcotic agent; Z88.0 Allergy status to penicillin; Z88.2 Allergy status to sulfonamides; Z88.1 Allergy status to other antibiotic agents; Z90.49 Acquired absence of other specified parts of digestive tract; Z90.710 Acquired absence of both cervix and uterus; Z98.51 Tubal ligation status; Z96.641 Presence of right artificial hip joint
CPT/HCPCS: 99284; 96374; 96361; 36415; 93005; 80053; 83735; 84484; 85025; 85610; 85730; 81001; 71046; J0696

== ENCOUNTER 2021-07-23 06:44 | Day surgery (SDC) | payer MEDICARE, BC ==
[2021-07-16 15:29] VITALS: BMI 35.9
[~2021-07-23 06:44] MED LIST changes: -AMINOPHYLLINE 500 MG/20 ML VIAL IV ONE; +LACTATED RINGERS 1,000 ML IV SCH; -REGADENOSON 0.4 MG/5 ML SYRINGE IV ONE
[2021-07-23 07:25] VITALS: TEMP 96.2
[2021-07-23 07:40] LABS: Glucose,Whole Blood 119 mg/dL (75-99)
[2021-07-23] MEDS ORDERED: LIDOCAINE 1% (10MG/ML) FOR IV START SQ ONE (07:42)
[2021-07-23] MEDS ORDERED: PROPOFOL 10 MG/ML 20 ML VIAL IV ONE (07:47)
[2021-07-23 08:44] VITALS: BP 151/100; PULSE 60; RESP 20
--- NOTE | 2021-07-23 08:46 | P.PCN ---
Date of Procedure: 07/23/21 Procedure(s) Performed: BRIEF HISTORY: Patient is a 81-year-old pleasant white female scheduled for an elective colonoscopy as a part of value should prior history of colon polyps. Her last colonoscopy was done by Dr. James 3 years ago. PROCEDURE PERFORMED: Colonoscopy with biopsy and snare polypectomy. PREOPERATIVE DIAGNOSIS: Hstory of colonpolyps. IV sedation per Anesthesia. PROCEDURE: After informed consent was obtained, the patient, was brought into the endoscopy unit. IV sedation was administered by Anesthesia under continuous monitoring. Digital rectal examination was normal. Initially the Olympus CF-160 flexible video colonoscope was then inserted in the rectum, gradually advanced into the cecum without any difficulty. Careful examination was performed as the scope was gradually being withdrawn. Ileocecal valve and the appendiceal orifice were visualized and appeared normal. Prep was excellent. In the cecum just adjacent to the ileocecal valve there was a porcine meter broad-based polyp that was initially biopsied and subsequently snare polypectomy was performed in approximately 75% the polyp was removed. In the ascending colon there was a 1 cm polyp removed by snare polypectomy. In the transverse colon there was a 5 mm and 1 cm polyp removed by snare polypectomy. In the descending colon there was a 5 limited polyp removed by snare polypectomy. Rest of the ascending colon, transverse colon, descending colon, sigmoid colon, and rectum appeared normal. Retroflexion was performed in the rectum and no lesions were seen. The patient tolerated the procedure well. IMPRESSION: 4 cm broad-based cecal polyp adjacent to the ileocecal valve status post partial snare polypectomy and biopsy (75% polyp removed) 1.ascending colon polyp status post polypectomy 1 cm and 5 mm transverse colon polyp status post polypectomy 5 mm descending colon polyp status post polypectomy. RECOMMENDATIONS: Findings of this examination were discussed with the patient as well as his family. He will she was advised to follow with the biopsy results. She will be seen in office in 2 weeks and based the biopsy results will plan a repeat colonoscopy in one to 2 months for complete polypectomy.
== END 2021-07-23 09:18 ==
LOC: ORWHC2ENDO 06:44
PROVIDERS: ATTEND Internal Medicine Gastroenterology
DX: Z12.11 Encounter for screening for malignant neoplasm of colon (principal); Z86.010 Personal history of colon polyps; D37.4 Neoplasm of uncertain behavior of colon; D12.3 Benign neoplasm of transverse colon; D12.4 Benign neoplasm of descending colon; I10 Essential (primary) hypertension; E78.5 Hyperlipidemia, unspecified; I48.91 Unspecified atrial fibrillation; F32.A Depression, unspecified; J44.9 Chronic obstructive pulmonary disease, unspecified; E11.9 Type 2 diabetes mellitus without complications; E07.9 Disorder of thyroid, unspecified; M19.90 Unspecified osteoarthritis, unspecified site; K21.9 Gastro-esophageal reflux disease without esophagitis; Z90.710 Acquired absence of both cervix and uterus; Z90.49 Acquired absence of other specified parts of digestive tract; Z96.698 Presence of other orthopedic joint implants; Z98.51 Tubal ligation status; Z98.890 Other specified postprocedural states; Z79.890 Hormone replacement therapy; Z79.82 Long term (current) use of aspirin; Z79.899 Other long term (current) drug therapy
CPT/HCPCS: 88305; 45380; 45385; J2704

== ENCOUNTER 2021-07-25 02:30 | Emergency (ER) | payer MEDICARE, BC ==
[2021-07-25 02:35] VITALS: RESP 18; TEMP 97.9
[2021-07-25] MEDS ORDERED: MORPHINE SULFATE 4 MG/ML SYRINGE IV STA (03:42)
--- NOTE | 2021-07-25 04:16 | CT ---
EXAMINATION TYPE: CT abdomen pelvis wo con DATE OF EXAM: 07/25/2021 COMPARISON: 06/02/2018 HISTORY: Abd Pain CT DLP: 999.10 mGycm Automated exposure control for dose reduction was used. Images obtained from the diaphragm to the floor the pelvis without contrast. Lung bases are clear of consolidation. There is minimal subsegmental atelectasis at the lung bases. H eart size is fairly normal. There is no pericardial effusion. Liver and spleen are intact. The bile ducts are not dilated. Liver is enlarged and measures [address] omach is intact. There is small hiatal hernia. There is no evidence of pancreatic mass. There is no adrenal mass. Kidneys show normal size and contour. There is no hydronephrosis. Ureters a re not dilated. There is no retroperitoneal adenopathy. Bladder distends smoothly. There is no internet salesperson al hernia. There is right hip prosthesis. There are numerous sigmoid diverticula. There is no diverticulitis. There is no mesenteric edema. There is no ascites or free air. There is no bowel obstruction. Appendi x not seen. No sign of thickened appendix. Abdominal aorta is atheromatous. There is right hip prosthesis. Bony pelvis appears intact. The lumbar vertebrae have normal alignment . Posterior elements are intact. There is no lumbar compression fracture. I see no focal bone destruc tion. IMPRESSION: No acute abnormality in the abdomen and pelvis. Hepatomegaly. Atherosclerotic vascular disease. No ad verse change.
[2021-07-25 04:58] LABS: Basophils # (A) 0.1 k/uL (0-0.2); Basophils % (A) 1 %; Eosinophils # (A) 0.2 k/uL (0-0.7); Eosinophils % (A) 3 %; HCT 41.8 % (34.0-46.0); HGB 14.2 gm/dL (11.4-16.0); Lymphocytes # (A) 1.3 k/uL (1.0-4.8); Lymphocytes % (A) 18 %; MCH 31.6 pg (25.0-35.0); MCV 92.8 fL (80.0-100.0); Mean Platelet Volume 8.7; Monocytes # (A) 0.5 k/uL (0-1.0); Monocytes % (A) 8 %; Neutrophils # (A) 4.9 k/uL (1.3-7.7); Neutrophils % (A) 68 %; Platelet Count 213 k/uL (150-450); RDW 13.6 % (11.5-15.5); WBC 7.2 k/uL (3.8-10.6)
[2021-07-25 05:21] VITALS: BP 167/70; PULSE 60
[2021-07-25 05:34] LABS: C Reactive Protein 1.9 mg/dL (<1.0); Calcium 9.7 mg/dL (8.4-10.2); Total Bilirubin 0.8 mg/dL (0.2-1.3)
[2021-07-25 05:52] LABS: Potassium 4.3 mmol/L (3.5-5.1)
--- NOTE | 2021-07-25 06:20 | ED ---
General Adult HPI - General Chief complaint: Recheck/Abnormal Lab/Rx Stated complaint: back pain Time Seen by Provider: 07/25/21 02:56 Source: patient Mode of arrival: wheelchair Limitations: no limitations - History of Present Illness Initial comments: Patient is an 81-year-old woman who presents to be evaluated for body aches. She states that earlier in the day she had a colonoscopy she had gone home and after resting for that she had noticed that she was aching in her back, or shoulders and her legs. She denies abdominal pain. She has not noted fever or chills. No tachycardia. No nausea, vomiting or diarrhea. -: hour(s) Location: back, buttocks, left, right, upper extremity Quality: aching Consistency: constant Improves with: none Worsens with: none Associated Symptoms: denies other symptoms - Related Data Home Medications Medication Instructions Recorded Confirmed Levothyroxine Sodium [Synthroid] 150 mcg PO DAILY 09/30/13 07/16/21 Pravastatin Sodium [Pravachol] 80 mg PO HS 11/07/14 07/16/21 Multivitamins, Thera [Multivitamin 1 tab PO DAILY 06/01/18 07/16/21 (formulary)] Sotalol [Betapace] 80 mg PO BID 06/01/18 07/16/21 Vortioxetine Hydrobromide 10 mg PO DAILY 06/01/18 07/16/21 [Trintellix] Ferrous Sulfate [Iron (65 MG 325 mg PO DAILY 06/16/18 07/16/21 Elemental)] amLODIPine [Norvasc] 5 mg PO DAILY 06/16/18 07/16/21 Aspirin [Biron Aspirin EC] 81 mg PO DAILY 06/28/18 07/16/21 Losartan/Hydrochlorothiazide 1 tab PO DAILY 08/18/18 07/16/21 [Losartan-Hctz 100-25 mg Tab] Donepezil [Aricept] 10 mg PO DAILY 06/22/21 07/16/21 Memantine [Namenda] 10 mg PO DAILY 06/22/21 07/16/21 Mirabegron [Myrbetriq] 50 mg PO DAILY 06/22/21 07/16/21 Sennosides-Docusate Sodium 1 tab PO HS 06/22/21 07/16/21 [Senokot-S] Cyanocobalamin [Vitamin B-12] 500 mcg PO DAILY 07/16/21 07/16/21 Rivaroxaban [Xarelto] 15 mg PO HS 07/16/21 07/23/21 Previous Rx's Medication Instructions Recorded Pantoprazole [Protonix] 40 mg PO AC-BID #60 tablet. 09/16/18 Allergies Allergy/AdvReac Type Severity Reaction Status Date / Time atorvastatin calcium Allergy MUSCLE Verified 07/25/21 02:36 [From Lipitor] ACHES azithromycin Allergy Rash/Hives Verified 07/25/21 02:36 [From Zithromax Z-Chau] codeine Allergy Unknown Verified 07/25/21 02:36 hydrochlorothiazide Allergy Unknown Verified 07/25/21 02:36 [From Dyazide] lincomycin HCl Allergy Unknown Verified 07/25/21 02:36 [From Lincocin] meperidine HCl [From Demerol] Allergy Unknown Verified 07/25/21 02:36 metronidazole [From Flagyl] Allergy Unknown Verified 07/25/21 02:36 Metronidazole HCl Allergy Unknown Verified 07/25/21 02:36 [From Flagyl] Penicillins Allergy Unknown Verified 07/25/21 02:36 rosuvastatin calcium Allergy MUSCLE Verified 07/25/21 02:36 [From Crestor] ACHES Sulfa (Sulfonamide Allergy Unknown Verified 07/25/21 02:36 Antibiotics) tetracycline [Tetracycline] Allergy Unknown Verified 07/25/21 02:36 triamterene [From Dyazide] Allergy Unknown Verified 07/25/21 02:36 watermelon Allergy Swelling Uncoded 07/25/21 02:36 Review of Systems ROS Statement: Those systems with pertinent positive or pertinent negative responses have been documented in the HPI. ROS Other: All systems not noted in ROS Statement are negative. Constitutional: Denies: fever, chills, weakness Respiratory: Denies: cough, dyspnea Cardiovascular: Denies: chest pain, palpitations, edema, syncope Gastrointestinal: Denies: abdominal pain, nausea, vomiting, diarrhea, constipation Genitourinary: Denies: dysuria, hematuria Musculoskeletal: Reports: back pain, myalgia Skin: Denies: rash Neurological: Denies: headache, weakness, numbness Past Medical History Past Medical History: Atrial Fibrillation, COPD, Diabetes Mellitus, GERD/Reflux, Hyperlipidemia, Hypertension, Memory Impairment, Osteoarthritis (OA), Pneumonia, Thyroid Disorder Additional Past Medical History / Comment(s): Right hip infection w/wound vac in Jun.-tx. @[facility]-wound completely healed per son, SHINGLES TO RT FACE/EYE. diet controlled diabetes, osteoporosis, recent blood in stool,. ANEMIA WITH BLOOD TRANSFUSIONS. 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 Past Surgical History: Appendectomy, Heart Catheterization With Stent, Hysterectomy, Joint Replacement, Orthopedic Surgery, Tonsillectomy, Tubal Ligation Additional Past Surgical History / Comment(s): RT HIP REPLACEMENT & multiple surgeries on it due to infection Past Anesthesia/Blood Transfusion Reactions: No Reported Reaction Date of Last Stent Placement:: 2017 Past Psychological History: Depression Smoking Status: Never smoker Past Alcohol Use History: None Reported Past Drug Use History: None Reported - Past Family History Daughter(s) Family Medical History: Cancer Father History Unknown: Yes Family Medical History: Hypertension Additional Family Medical History / Comment(s): BRAIN TUMOR Mother Family Medical History: Cancer General Exam Limitations: no limitations General appearance: alert, in no apparent distress Head exam: Present: atraumatic, normocephalic Eye exam: Present: normal appearance. Absent: scleral icterus, conjunctival injection Neck exam: Present: normal inspection Respiratory exam: Present: normal lung sounds bilaterally. Absent: respiratory distress, wheezes, rales, rhonchi, stridor Cardiovascular Exam: Present: regular rate, normal rhythm, normal heart sounds. Absent: systolic murmur, diastolic murmur, rubs, gallop GI/Abdominal exam: Present: soft. Absent: distended, tenderness, guarding, rebound, rigid, mass Extremities exam: Present: normal inspection, normal capillary refill. Absent: pedal edema, calf tenderness Neurological exam: Present: alert Skin exam: Present: warm, dry, intact, normal color. Absent: rash Course Vital Signs 07/25/21 07/25/21 02:33 05:17 Temperature 97.9 F Pulse Rate 62 60 Respiratory 18 18 Rate Blood Pressure 178/92 167/70 O2 Sat by Pulse 98 96 Oximetry Medical Decision Making - Medical Decision Making This patient is an 81-year-old woman presenting with myalgias but as this occurred after recent procedure, namely colonoscopy, CT ordered to rule out any sort of post procedural complication. The patient did have relief of symptoms following medication here in the CT is not revealing any acute abnormality. Pat ient is feeling better and wanted to go home. Discussed return parameters and appropriate follow-up. - Lab Data Result diagrams: 07/25/21 04:47 07/25/21 04:47 Lab Results 07/25/21 07/25/21 07/25/21 Range/Units 04:47 04:47 04:47 WBC 7.2 (3.8-10.6) k/uL RBC 4.50 (3.80-5.40) m/uL Hgb 14.2 (11.4-16.0) gm/dL Hct 41.8 (34.0-46.0) % MCV 92.8 (80.0-100.0) fL MCH 31.6 (25.0-35.0) pg MCHC 34.0 (31.0-37.0) g/dL RDW 13.6 (11.5-15.5) % Plt Count 213 (150-450) k/uL MPV 8.7 Neutrophils % 68 % Lymphocytes % 18 % Monocytes % 8 % Eosinophils % 3 % Basophils % 1 % Neutrophils # 4.9 (1.3-7.7) k/uL Lymphocytes # 1.3 (1.0-4.8) k/uL Monocytes # 0.5 (0-1.0) k/uL Eosinophils # 0.2 (0-0.7) k/uL Basophils # 0.1 (0-0.2) k/uL Sodium 137 (137-145) mmol/L Potassium 4.3 (3.5-5.1) mmol/L Chloride 106 (98-107) mmol/L Carbon Dioxide 24 (22-30) mmol/L Anion Gap 7 mmol/L BUN 19 H (7-17) mg/dL Creatinine 0.79 (0.52-1.04) mg/dL Est GFR (CKD-EPI)AfAm 82 (>60 ml/min/1.73 sqM) Est GFR (CKD-EPI)NonAf 71 (>60 ml/min/1.73 sqM) Glucose 132 H (74-99) mg/dL Calcium 9.7 (8.4-10.2) mg/dL Total Bilirubin 0.8 (0.2-1.3) mg/dL AST 29 (14-36) U/L ALT 15 (4-34) U/L Alkaline Phosphatase 86 (38-126) U/L Troponin I <0.012 (0.000-0.034) ng/mL C-Reactive Protein 1.9 H (<1.0) mg/dL Total Protein 7.0 (6.3-8.2) g/dL Albumin 4.0 (3.5-5.0) g/dL Disposition Clinical Impression: Myalgia Disposition: HOME SELF-CARE Condition: Good Instructions (If sedation given, give patient instructions): Musculoskeletal Pain (ED) Is patient prescribed a controlled substance at d/c from ED?: No Referrals: Maryann Craig DO [Primary Care Provider] - 1-2 days
== END 2021-07-25 06:56 | disposition home or self-care (01) ==
LOC: EC 02:30
DX: M79.10 Myalgia, unspecified site (principal); E11.9 Type 2 diabetes mellitus without complications; I10 Essential (primary) hypertension; I48.91 Unspecified atrial fibrillation; E78.5 Hyperlipidemia, unspecified; J44.9 Chronic obstructive pulmonary disease, unspecified; K21.9 Gastro-esophageal reflux disease without esophagitis; M19.90 Unspecified osteoarthritis, unspecified site; F32.A Depression, unspecified; Z79.01 Long term (current) use of anticoagulants; Z79.82 Long term (current) use of aspirin; Z79.890 Hormone replacement therapy; Z79.899 Other long term (current) drug therapy
CPT/HCPCS: 36415; 80053; 84484; 85025; 86140; 74176; 99284; 96374; J2270

== ENCOUNTER 2021-09-27 09:39 | Day surgery (SDC) | payer MEDICARE, BC ==
[2021-09-25 15:01] VITALS: BMI 35.9
[2021-09-27 10:09] VITALS: TEMP 97.8
[2021-09-27] MEDS ORDERED: LACTATED RINGERS 1,000 ML IV ONE (10:09)
[2021-09-27 10:19] LABS: Glucose,Whole Blood 133 mg/dL (75-99)
[2021-09-27] MEDS ORDERED: PROPOFOL 10 MG/ML 20 ML VIAL IV ONE (11:35)
--- NOTE | 2021-09-27 12:11 | P.PCN ---
Date of Procedure: 09/27/21 Procedure(s) Performed: BRIEF HISTORY: Patient is a 81-year-old pleasant female scheduled for an elective colonoscopy as a part of the liver colonoscopy as a part of follow-up of large ascending colon polyp that was noted on a recent colonoscopy in May 2021.. She was noted to have a 4 cm polyp just above the ileocecal valve and part of the polyp was removed and biopsies revealed villous adenoma. Scheduled for repeat colonoscopy for complete endoscopic polypectomy PROCEDURE PERFORMED: Colonoscopy snare polypectomy. PREOPERATIVE DIAGNOSIS: Follow-up large ascending colon polyp. IV sedation per Anesthesia. PROCEDURE: After informed consent was obtained, the patient, was brought into the endoscopy unit. IV sedation was administered by Anesthesia under continuous monitoring. Digital rectal examination was normal. Initially the Olympus CF-160 flexible video colonoscope was then inserted in the rectum, gradually advanced into the cecum without any difficulty. Careful examination was performed as the scope was gradually being withdrawn. Ileocecal valve and the appendiceal orifice were visualized and appeared normal. Prep was excellent. Mucosa of the cecum, appeared normal. Just above the ileocecal valve in the ascending colon there was a 4 cm large polyp with a white base status post partial polypectomy but complete polypectomy could not be accomplished. Only 50% the polyp was removed. The rest of the ascending colon, appeared normal. Transverse colon there was a 5 mm and 1 cm polyp removed by snare polypectomy. Rest of transverse colon, descending colon, sigmoid colon, and rectum appeared normal. Sigmoid diverticulosis seen. Retroflexion was performed in the rectum and no lesions were seen. The patient tolerated the procedure well. IMPRESSION: 4 cm polyp noted in the ascending colon just above the ileocecal valve status post partial snare polypectomy and complete polypectomy could not be accomplished 5 mm and 1 cm transverse colon polyp status post polypectomy RECOMMENDATIONS: Findings of this examination were discussed with the patient as well as a family. At this time will await biopsy results. She will be seen in office next week and will discuss possibility of surgical intervention at this polyp is not amenable for endoscopic resection..
[2021-09-27 12:17] VITALS: RESP 16
[2021-09-27 12:32] VITALS: BP 160/73; PULSE 58
== END 2021-09-27 13:30 | disposition home or self-care (01) ==
LOC: ORWHC2ENDO 09:39
PROVIDERS: ATTEND Internal Medicine Gastroenterology
DX: D12.2 Benign neoplasm of ascending colon (principal); D12.3 Benign neoplasm of transverse colon; I25.10 Atherosclerotic heart disease of native coronary artery without angina pectoris; I10 Essential (primary) hypertension; E78.5 Hyperlipidemia, unspecified; I48.91 Unspecified atrial fibrillation; Z95.5 Presence of coronary angioplasty implant and graft; E11.9 Type 2 diabetes mellitus without complications; E07.9 Disorder of thyroid, unspecified; R41.3 Other amnesia; Z79.01 Long term (current) use of anticoagulants; Z79.899 Other long term (current) drug therapy
CPT/HCPCS: 45385; 45381; 88305; J2704

== ENCOUNTER → 2021-10-17 | Outpatient (CLI) | payer MEDICARE, BC ==
[2021-10-17 22:59] LABS: Anion Gap 9.8 mmol/L (10.00-18.00); Carbon Dioxide 25.2 mmol/L (20.0-27.5); Potassium 4.1 mmol/L (3.5-5.5)
[2021-10-17 23:40] LABS: Basophils # (A) 0.06 X 10*3/uL (0.00-0.10); Basophils % (A) 0.7 %; Eosinophils # (A) 0.18 X 10*3/uL (0.04-0.35); Eosinophils % (A) 2.1 %; HCT 43.8 % (37.2-46.3); Immature Grans, Automated 0.6 %; Lymphocytes # (A) 1.24 X 10*3/uL (0.90-5.00); Lymphocytes % (A) 14.7 %; MCH 29.8 pg (27.0-32.0); MCV 93.2 fL (80.0-97.0); Mean Platelet Volume 12.3 fL (9.5-12.2); Monocytes # (A) 1.02 X 10*3/uL (0.20-1.00); Monocytes % (A) 12.1 %; NRBC Per 100 WBC 0 /100 WBCS (0.0-0.0); Neutrophils # (A) 5.86 X 10*3/uL (1.80-7.70); Neutrophils % (A) 69.8 %; Platelet Count 250 X 10*3/uL (140-440); RDW 12.7 % (11.5-14.5); WBC 8.41 X 10*3/uL (4.50-10.00)
== END | disposition home or self-care (01) ==
LOC: LABPAT 16:50
PROVIDERS: ATTEND Surgery
DX: Z01.812 Encounter for preprocedural laboratory examination (principal); K63.5 Polyp of colon
CPT/HCPCS: 36415; 80051; 85025; 93005

== ENCOUNTER 2021-10-28 08:15 | Inpatient (IN) | payer MEDICARE, BC ==
[2021-10-24 14:20] VITALS: BMI 34.8
[~2021-10-28 08:15] MED LIST changes: +ACETAMINOPHEN TAB 500 MG TAB PO PRN; +DEXAMETHASONE SOD PHOSPHATE 4 MG/ML 1 ML VIAL IV ONE; +HEPARIN SODIUM,PORCINE/PF 5,000 UNIT/0.5 ML SYRINGE SQ PRN; -LACTATED RINGERS 1,000 ML IV SCH; +LIDOCAINE 1% (10MG/ML) FOR IV START INTRADERMA PRN; +MORPHINE SULFATE 2 MG/ML SYRINGE IV PRN; +ONDANSETRON 4 MG/2 ML VIAL IVP ONE; +Pre Op ABX Message 1 EACH MISC MISCELLANE ONE
[2021-10-28 09:11] LABS: Glucose,Whole Blood 184 mg/dL (75-99)
[2021-10-28] MEDS: LACTATED RINGERS 1,000 ML IV SCH (09:11)
--- NOTE | 2021-10-28 10:50 | P.GSHP ---
History of Present Illness H&P Date: 10/28/21 Chief Complaint: Right colon polyp This 81-year-old female who underwent previous colonoscopy by Dr. Luis. Patient's found have a large 4 cm polyp just above the ileocecal valve. This was not able to be removed during colonoscopy due to the size of the polyp. She presents today for laparoscopic right colectomy. Past Medical History Past Medical History: Atrial Fibrillation, COPD, Diabetes Mellitus, GERD/Reflux, Hyperlipidemia, Hypertension, Memory Impairment, Osteoarthritis (OA), Pneumonia, Thyroid Disorder Additional Past Medical History / Comment(s): Right hip infection w/wound vac in Jun.-tx. @[facility]-wound completely healed per son, SHINGLES TO RT FACE/EYE. diet controlled diabetes, osteoporosis, recent blood in stool,. ANEMIA WITH BLOOD TRANSFUSIONS. 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 Past Surgical History: Appendectomy, Heart Catheterization With Stent, Hysterectomy, Joint Replacement, Orthopedic Surgery, Tonsillectomy, Tubal Ligation Additional Past Surgical History / Comment(s): RT HIP REPLACEMENT & multiple surgeries on it due to infection, COLONOSCOPY WITH PARTIAL POLYPECTOMY Past Anesthesia/Blood Transfusion Reactions: No Reported Reaction Date of Last Stent Placement:: 2017 Smoking Status: Former smoker - Past Family History Daughter(s) Family Medical History: Cancer Father History Unknown: Yes Family Medical History: Hypertension Additional Family Medical History / Comment(s): BRAIN TUMOR Mother Family Medical History: Cancer Medications and Allergies Home Medications Medication Instructions Recorded Confirmed Type Levothyroxine Sodium [Synthroid] 150 mcg PO DAILY 09/30/13 10/28/21 History Pravastatin Sodium [Pravachol] 80 mg PO HS 11/07/14 10/28/21 History Multivitamins, Thera [Multivitamin 1 tab PO DAILY 06/01/18 10/24/21 History (formulary)] Sotalol [Betapace] 80 mg PO BID 06/01/18 10/28/21 History Vortioxetine Hydrobromide 10 mg PO DAILY 06/01/18 10/28/21 History [Trintellix] Ferrous Sulfate [Iron (65 MG 325 mg PO DAILY 06/16/18 10/28/21 History Elemental)] amLODIPine [Norvasc] 5 mg PO DAILY 06/16/18 10/28/21 History Aspirin [[place] Aspirin EC] 81 mg PO DAILY 06/28/18 10/24/21 History Losartan/Hydrochlorothiazide 1 tab PO DAILY 08/18/18 10/28/21 History [Losartan-Hctz 100-25 mg Tab] Pantoprazole [Protonix] 40 mg PO AC-BID #60 tablet. 09/16/18 10/28/21 Rx Donepezil [Aricept] 10 mg PO DAILY 06/22/21 10/28/21 History Memantine [Namenda] 10 mg PO DAILY 06/22/21 10/28/21 History Mirabegron [Myrbetriq] 50 mg PO DAILY 06/22/21 10/28/21 History Sennosides-Docusate Sodium 1 tab PO HS 06/22/21 10/28/21 History [Senokot-S] Cyanocobalamin [Vitamin B-12] 500 mcg PO DAILY 07/16/21 10/28/21 History Rivaroxaban [Xarelto] 15 mg PO HS 07/16/21 10/28/21 History Allergies Allergy/AdvReac Type Severity Reaction Status Date / Time atorvastatin calcium Allergy MUSCLE Verified 10/28/21 08:43 [From Lipitor] ACHES azithromycin Allergy Rash/Hives Verified 10/28/21 08:43 [From Zithromax Z-Chau] codeine Allergy Unknown Verified 10/28/21 08:43 hydrochlorothiazide Allergy Unknown Verified 10/28/21 08:43 [From Dyazide] lincomycin HCl Allergy Unknown Verified 10/28/21 08:43 [From Lincocin] meperidine HCl [From Demerol] Allergy Unknown Verified 10/28/21 08:43 metronidazole [From Flagyl] Allergy Unknown Verified 10/28/21 08:43 Metronidazole HCl Allergy Unknown Verified 10/28/21 08:43 [From Flagyl] Penicillins Allergy Unknown Verified 10/28/21 08:43 rosuvastatin calcium Allergy MUSCLE Verified 10/28/21 08:43 [From Crestor] ACHES [id number] Reductase Allergy Unknown Verified 10/28/21 08:43 Inhibitor Sulfa (Sulfonamide Allergy Unknown Verified 10/28/21 08:43 Antibiotics) tetracycline [Tetracycline] Allergy Unknown Verified 10/28/21 08:43 triamterene [From Dyazide] Allergy Unknown Verified 10/28/21 08:43 watermelon Allergy Swelling Uncoded 10/28/21 08:43 Surgical - Exam Vital Signs Temp Pulse Resp BP Pulse Ox 98.8 F 62 16 129/63 97 10/28/21 08:59 10/28/21 08:59 10/28/21 08:59 10/28/21 08:59 10/28/21 08:59 - General well developed, well nourished, no distress - Eyes PERRL - ENT normal pinna - Neck no masses - Respiratory normal expansion - Cardiovascular Rhythm: regular - Abdomen Abdomen: soft, non tender Results - Labs Abnormal Lab Results - Last 24 Hours (Table) 10/28/21 Range/Units 09:07 POC Glucose (mg/dL) 184 H (75-99) mg/dL Assessment and Plan Assessment: Right colon polyp. We'll perform laparoscopic right colectomy.
[2021-10-28] MEDS ORDERED: HYDROmorphone (PF) 1 MG/ML ONE (11:11)
[2021-10-28] MEDS ORDERED: KETOROLAC 15 MG/ML 1 ML VIAL ONE (11:11)
[2021-10-28] MEDS ORDERED: LIDOCAINE 2% INJ 20 MG/ML (2 ML VIAL) ONE (11:11)
[2021-10-28] MEDS ORDERED: ROCURONIUM 10 MG/ML (5 ML VIAL) IV ONE (11:11)
[2021-10-28] MEDS ORDERED: fentaNYL (PF) 50 MCG/ML 2 ML AMP ONE (11:11)
[2021-10-28] MEDS ORDERED: GLYCOPYRROLATE 0.2 MG/ML 2 ML VIAL ONE (11:11)
[2021-10-28] MEDS ORDERED: SUCCINYLCHOLINE CHLORIDE 100 MG/5 ML SYR IV ONE (11:11)
[2021-10-28] MEDS ORDERED: NEOSTIGMINE 1 MG/ML 10 ML VIAL ONE (11:11)
[2021-10-28] MEDS ORDERED: PROPOFOL 10 MG/ML 20 ML VIAL IV ONE (11:11)
[2021-10-28] MEDS ORDERED: BUPIVACAINE (PF) 0.5% 30 ML VIAL SQ ONE (11:46)
[2021-10-28] MEDS ORDERED: LACTATED RINGERS 1,000 ML IV ONE (12:42)
[2021-10-28] MEDS ORDERED: METOCLOPRAMIDE 5 MG/ML 2 ML VIAL IVP PRN (12:52)
[2021-10-28] MEDS ORDERED: ONDANSETRON 4 MG/2 ML VIAL IVP PRN (12:52)
[2021-10-28] MEDS ORDERED: BENZOCAINE/MENTHOL LOZENG 1 EACH LOZENGE MUCOUS MEM PRN (12:52)
[2021-10-28 13:15] LABS: Glucose,Whole Blood 189 mg/dL (75-99)
--- NOTE | 2021-10-28 13:40 | P.OP ---
Date of Procedure: 10/28/21 Preoperative Diagnosis: Right colon polyp Postoperative Diagnosis: Right colon polyp Procedure(s) Performed: Laparoscopic-assisted right colectomy Jared lysis of extensive adhesions Partial omentectomy Transverse abdominal plane block Anesthesia: PAPA Surgeon: Sumit Sweet Estimated Blood Loss (ml): 25 Pathology: other (Right colon) Condition: stable Disposition: PACU Description of Procedure: The patient's placed on the operating table in the supine position. She receiv ed general endotracheal tube anesthesia. Her abdomen was prepped and draped in sterile fashion. The skin incision sites were anesthetized with 1% local Xylocaine. Using a 15 blade the skin was incised superotemporal position. And then using a Veress needle the peritoneal cavity was insufflated after a positive drop test.. After adequate insufflation a 5 mm trocar was placed into the peritoneal cavity. Next another 5 mm trochars placed in the epigastric position. And then a 5 mm trocar was placed in the right paramedial this. He The transversus abdominis plan block was performed 4 quadrants using 1% local Xylocaine. Patient low midline scar. There are extensive adhesions noted in the right lower quadrant. Approximately point minutes of operative time used to lyse adhesions. The right colon was partially mobilized using left knee. And then due to adhesions the trochars withdrawn. A small skin incision was made and then fashioned divided. The right colon was then brought up into the wound. The terminal ileum was transected and the distal descending colon was transected with a GI stapler. Then using the Enseal device mesentery the bowel was divided. Specimen was then opened and the polyp was seen. A [id number] functional end-to-end staple vessels. Using the JAY and TA stapler. 3-0 GI silk sutures using a crotch stitch. A portion of omentum was dissected free to pathology. There was no bleeding seen. The fascia closed with looped #1 PDS suture. Skin was closed oskar. Patient top she will was sent to recovery in stable condition.
[2021-10-28 16:46] LABS: Glucose,Whole Blood 179 mg/dL (75-99)
[2021-10-28] MEDS: HYDROmorphone 1 MG/ML 1 ML SYRINGE IVP PRN ×2 (16:48→21:59)
[2021-10-28] MEDS: D5-0.45% NACL WITH KCL 20MEQ/L 1,000 ML IV SCH (17:06)
[2021-10-28 20:58] LABS: Glucose,Whole Blood 213 mg/dL (75-99)
[2021-10-28 22:15] LABS: Basophils % (A) 0 %; Eosinophils % (A) 0 %; HGB 13.6 gm/dL (11.4-16.0); Lymphocytes # (A) 0.6 k/uL (1.0-4.8); Lymphocytes % (A) 4 %; MCH 30.5 pg (25.0-35.0); MCHC 33.2 g/dL (31.0-37.0); MCV 92.1 fL (80.0-100.0); Mean Platelet Volume 9.2; Monocytes # (A) 0.6 k/uL (0-1.0); Monocytes % (A) 4 %; Neutrophils % (A) 91 %; Platelet Count 225 k/uL (150-450); RBC 4.45 m/uL (3.80-5.40); WBC 15.3 k/uL (3.8-10.6)
[2021-10-28 22:20] LABS: Calcium 9.3 mg/dL (8.4-10.2); Potassium 3.6 mmol/L (3.5-5.1)
[2021-10-29] MEDS: D5-0.45% NACL WITH KCL 20MEQ/L 1,000 ML IV SCH ×2 (05:27→10:06)
[2021-10-29 07:14] LABS: Glucose,Whole Blood 181 mg/dL (75-99)
[2021-10-29] MEDS: LACTATED RINGERS 1,000 ML IV SCH (08:37)
[2021-10-29] MEDS: KETOROLAC 15 MG/ML 1 ML VIAL IVP PRN ×2 (08:57→17:14)
[2021-10-29] MEDS ORDERED: Potassium Replacement Protocol 1 EACH MISC MISCELLANE PRN (09:01)
[2021-10-29 09:11] LABS: HCT 38.2 % (37.2-46.3); HGB 12.3 g/dL (12.0-15.0); MCH 29.4 pg (27.0-32.0); MCHC 32.2 g/dL (32.0-37.0); MCV 91.2 fL (80.0-97.0); Mean Platelet Volume 12.4 fL (9.5-12.2); NRBC Per 100 WBC 0 /100 WBCS (0.0-0.0); Platelet Count 212 X 10*3/uL (140-440); RBC 4.19 X 10*6/uL (4.10-5.20); RDW 12.6 % (11.5-14.5); WBC 12.47 X 10*3/uL (4.50-10.00)
[2021-10-29 09:26] LABS: African American GFR (CKD) 80.1 (60.0-200.0); Anion Gap 9.8 mmol/L (10.00-18.00); BUN/Creat Ratio 17.5 Ratio (12.00-20.00); Calcium 9.4 mg/dL (8.7-10.3); Carbon Dioxide 24.2 mmol/L (20.0-27.5); Non-African American GFR(CKD) 69.1 (60.0-200.0); Potassium 3.9 mmol/L (3.5-5.5)
[2021-10-29] MEDS ORDERED: POTASSIUM CHLORIDE ER 20 MEQ TAB.ER PO SCH (10:00)
[2021-10-29] MEDS: LOSARTAN 50 MG TAB PO SCH (10:05)
[2021-10-29] MEDS: amLODIPine 5 MG TAB PO SCH (10:05)
[2021-10-29] MEDS: MULTIVITAMINS, THERA 1 EACH TAB PO SCH (10:06)
[2021-10-29] MEDS: VORTIOXETINE HYDROBROMIDE 10 MG TABLET PO SCH (10:06)
[2021-10-29] MEDS: SOTALOL 80 MG TAB PO SCH ×2 (10:06→20:11)
[2021-10-29] MEDS: MEMANTINE 10 MG TAB PO SCH (10:06)
[2021-10-29] MEDS: DONEPEZIL 10 MG TAB PO SCH (10:06)
[2021-10-29] MEDS: PANTOPRAZOLE 40 MG TABLET PO SCH ×2 (10:13→17:14)
[2021-10-29] MEDS: LEVOTHYROXINE 75 MCG TAB PO SCH (10:13)
[2021-10-29] MEDS: HYDROmorphone 1 MG/ML 1 ML SYRINGE IVP PRN ×2 (11:06→17:14)
[2021-10-29 11:15] LABS: Glucose,Whole Blood 173 mg/dL (75-99)
[2021-10-29] MEDS: INSULIN ASPART (NovoLOG) 100 UNIT/ML VIAL SQ SCH ×3 (12:12→20:11)
--- NOTE | 2021-10-29 12:59 | P.PN ---
Subjective Progress Note Date: 10/29/21 CHIEF COMPLAINT: Right colon polyp HISTORY OF PRESENT ILLNESS: Postop day #1 status post laparoscopic-assisted right colectomy, lysis of extensive adhesions, partial omentectomy. Patient lying in bed comfortably. Pain is controlled. No flatus or bowel movement. Denies any nausea or vomiting. Tolerated clear liquids. Afebrile. WBC is down from 15.3-12.47 PHYSICAL EXAM: VITAL SIGNS: Reviewed. GENERAL: Well-developed in no acute distress. HEENT: No sclera icterus. Extraocular movements grossly intact. Moist buccal mucosa. Head is atraumatic, normocephalic. ABDOMEN: Soft. Nondistended. minimal bleeding noted from the incision site near the umbilicus. NEUROLOGIC: Awake. confused. ASSESSMENT: 1. Right colon polyp status post laparoscopic-assisted right colectomy, lysis of extensive adhesions, partial omentectomy PLAN: -Continue clear liquid diet -Add optifoam silver dressing to incision -Okay to resume Xarelto tomorrow 10/30/2021 -Continue pain medication as needed -Continue current liquid diet -Encouraged patient to increase activity level -Encouraged patient to use incentive spirometer Physician Technology Intern note has been reviewed by physician. Signing provider agrees with the documented findings, assessment, and plan of care. Objective - Vital Signs Vital signs: Vital Signs Temp 97.8 F 10/29/21 07:49 Pulse 75 10/29/21 07:49 Resp 17 10/29/21 07:49 BP 169/68 10/29/21 07:49 Pulse Ox 96 10/29/21 07:49 FiO2 Intake & Output 10/28/21 10/29/21 10/29/21 18:59 06:59 18:59 Intake Total 1450 Output Total 100 Balance 1350 Weight 93.3 kg Intake: IV 1450 Output: Urine 50 Estimated Blood Loss 50 Other: Voiding Method Indwelling Catheter Indwelling Catheter # Voids 350 - Labs CBC & Chem 7: 10/29/21 04:33 10/29/21 04:33 Labs: Abnormal Lab Results - Last 24 Hours (Table) 10/28/21 10/28/21 10/28/21 Range/Units 13:13 16:45 20:57 WBC (3.8-10.6) k/uL MPV (9.5-12.2) fL Neutrophils # (1.3-7.7) k/uL Lymphocytes # (1.0-4.8) k/uL Sodium (137-145) mmol/L Anion Gap (10.00-18.00) mmol/L Glucose (74-99) mg/dL POC Glucose (mg/dL) 189 H 179 H 213 H (75-99) mg/dL 10/28/21 10/28/21 10/29/21 Range/Units 21:28 21:28 04:33 WBC 15.3 H 12.47 H (3.8-10.6) k/uL MPV 12.4 H (9.5-12.2) fL Neutrophils # 14.0 H (1.3-7.7) k/uL Lymphocytes # 0.6 L (1.0-4.8) k/uL Sodium 135 L (137-145) mmol/L Anion Gap (10.00-18.00) mmol/L Glucose 206 H (74-99) mg/dL POC Glucose (mg/dL) (75-99) mg/dL 10/29/21 10/29/21 10/29/21 Range/Units 04:33 07:12 11:14 WBC (3.8-10.6) k/uL MPV (9.5-12.2) fL Neutrophils # (1.3-7.7) k/uL Lymphocytes # (1.0-4.8) k/uL Sodium (137-145) mmol/L Anion Gap 9.80 L (10.00-18.00) mmol/L Glucose 176 H (74-99) mg/dL POC Glucose (mg/dL) 181 H 173 H (75-99) mg/dL
--- NOTE | 2021-10-29 15:43 | P.CONS ---
History of Present Illness - Reason for Consult Consult date: 10/29/21 - History of Present Illness This is an 81 year old female who is postoperative day #1 for scheduled right colectomy with partial omentectomy for large 4cm polyp found on recent colonoscopy. Past medical history significant for atrial fibrillation, COPD, Diabetes Mellitus, Hypertension, Hyperlipidemia, Memory impairment, hypothyroid, GERD. Patient is hyperglycemic with blood sugars in the 180s to 200s, does not appear to be on any diabetic medications at home will use novolog while inpatient, home medications have been resume. Will hold hydrochlorothiazide and resume losartan, norvasc. Xarelto continues to be held per surgery. Labs today showing white count 15.3, sodium 135, potassium 3.6. Blood pressure 160/70's, afebrile, 96% on 2L Nasal cannula. Patient is slightly confused, she has son at bedside who is updated on plan of care. REVIEW OF SYSTEMS: CONSTITUTIONAL: No fever, no malaise, no fatigue. HEENT: No recent visual problems or hearing problems. Denied any sore throat. CARDIOVASCULAR: No chest pain, orthopnea, PND, no palpitations, no syncope. PULMONARY: No shortness of breath, intermittent dry cough, no hemoptysis. GASTROINTESTINAL: No diarrhea, no nausea, no vomiting, abdominal pain rating 6/10 incisional NEUROLOGICAL: No headaches, no weakness, no numbness. HEMATOLOGICAL: Denies any bleeding or petechiae. GENITOURINARY: Denies any burning micturition, frequency, or urgency. MUSCULOSKELETAL/RHEUMATOLOGICAL: Denies any joint pain, swelling, or any muscle pain. ENDOCRINE: Denies any polyuria or polydipsia. The rest of the 14-point review of systems is negative. PHYSICAL EXAMINATION: GENERAL: The patient is alert and oriented x3, not in any acute distress. Well developed, well nourished. HEENT: Pupils are round and equally reacting to light. EOMI. No scleral icterus. No conjunctival pallor. Normocephalic, atraumatic. No pharyngeal erythema. No thyromegaly. CARDIOVASCULAR: S1 and S2 present. No murmurs, rubs, or gallops. PULMONARY: Chest is clear to auscultation, no wheezing or crackles. ABDOMEN: Soft, tender, nondistended, normoactive bowel sounds. No palpable organomegaly. Post surgical abdomen with 2 laproscopic incsions and midline incision closed with oskar MUSCULOSKELETAL: No joint swelling or deformity. EXTREMITIES: No cyanosis, clubbing, or pedal edema. NEUROLOGICAL: Gross neurological examination did not reveal any focal deficits. SKIN: No rashes. Assessment and Plan Assessment Postoperative day #1 colectomy with partial omentectomy History of colonic polyps with previous polypectomy Atrial fibrillation anticoagulated wtih xarelto which is currently on hold History of COPD without acute exacerbation Diabetes with hyperglycemia History of memory impairment Hypertension Hyperlipidemia Hypothyroidism Gastroesophageal reflux disease GI Prophylaxis: Protonix DVT Prophylaxis: As per primary Full Code Plan Resume appropriate home medications Cut losartan in half to avoid postoperative hypotension Hold hydrochlorothiazide component IV fluids changed to D5 with 0.9ns Clear liquid diet per primary Pain management Encourage IS PT/OT consultation Thank you kindly for this consultation The impression and plan of care has been dictated by Catherine Yee, Nurse Practitioner as directed. Dr. Nadia MD I have performed a history and physical examination and medical decision making of this patient, discussed the same with the dictator, and agree with the dictators assessment and plan as written, documented as a scribe. Based on total visit time, I have performed more than 50% of this visit. Past Medical History Past Medical History: Atrial Fibrillation, COPD, Diabetes Mellitus, GERD/Reflux, Hyperlipidemia, Hypertension, Memory Impairment, Osteoarthritis (OA), Pneumonia, Thyroid Disorder Additional Past Medical History / Comment(s): Right hip infection w/wound vac in Jun.-tx. @[facility]-wound completely healed per son, SHINGLES TO RT FACE/EYE. diet controlled diabetes, osteoporosis, recent blood in stool,. ANEMIA WITH BLOOD TRANSFUSIONS. 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 Past Surgical History: Appendectomy, Heart Catheterization With Stent, Hysterectomy, Joint Replacement, Orthopedic Surgery, Tonsillectomy, Tubal Ligation Additional Past Surgical History / Comment(s): RT HIP REPLACEMENT & multiple surgeries on it due to infection, COLONOSCOPY WITH PARTIAL POLYPECTOMY Past Anesthesia/Blood Transfusion Reactions: No Reported Reaction Date of Last Stent Placement:: 2017 Past Psychological History: Depression Smoking Status: Former smoker Past Alcohol Use History: None Reported Additional Past Alcohol Use History / Comment(s): quit smoking in the 70's Past Drug Use History: None Reported - Past Family History Daughter(s) Family Medical History: Cancer Father History Unknown: Yes Family Medical History: Hypertension Additional Family Medical History / Comment(s): BRAIN TUMOR Mother Family Medical History: Cancer Medications and Allergies Home Medications Medication Instructions Recorded Confirmed Type Levothyroxine Sodium [Synthroid] 150 mcg PO DAILY 09/30/13 10/28/21 History Pravastatin Sodium [Pravachol] 80 mg PO HS 11/07/14 10/28/21 History Multivitamins, Thera [Multivitamin 1 tab PO DAILY 06/01/18 10/24/21 History (formulary)] Sotalol [Betapace] 80 mg PO BID 06/01/18 10/28/21 History Vortioxetine Hydrobromide 10 mg PO DAILY 06/01/18 10/28/21 History [Trintellix] Ferrous Sulfate [Iron (65 MG 325 mg PO DAILY 06/16/18 10/28/21 History Elemental)] amLODIPine [Norvasc] 5 mg PO DAILY 06/16/18 10/28/21 History Aspirin [[place] Aspirin EC] 81 mg PO DAILY 06/28/18 10/24/21 History Losartan/Hydrochlorothiazide 1 tab PO DAILY 08/18/18 10/28/21 History [Losartan-Hctz 100-25 mg Tab] Pantoprazole [Protonix] 40 mg PO AC-BID #60 tablet. 09/16/18 10/28/21 Rx Donepezil [Aricept] 10 mg PO DAILY 06/22/21 10/28/21 History Memantine [Namenda] 10 mg PO DAILY 06/22/21 10/28/21 History Mirabegron [Myrbetriq] 50 mg PO DAILY 06/22/21 10/28/21 History Sennosides-Docusate Sodium 1 tab PO HS 06/22/21 10/28/21 History [Senokot-S] Cyanocobalamin [Vitamin B-12] 500 mcg PO DAILY 07/16/21 10/28/21 History Rivaroxaban [Xarelto] 15 mg PO HS 07/16/21 10/28/21 History Allergies Allergy/AdvReac Type Severity Reaction Status Date / Time atorvastatin calcium Allergy MUSCLE Verified 10/28/21 08:43 [From Lipitor] ACHES azithromycin Allergy Rash/Hives Verified 10/28/21 08:43 [From Zithromax Z-Chau] codeine Allergy Unknown Verified 10/28/21 08:43 hydrochlorothiazide Allergy Unknown Verified 10/28/21 08:43 [From Dyazide] lincomycin HCl Allergy Unknown Verified 10/28/21 08:43 [From Lincocin] meperidine HCl [From Demerol] Allergy Unknown Verified 10/28/21 08:43 metronidazole [From Flagyl] Allergy Unknown Verified 10/28/21 08:43 Metronidazole HCl Allergy Unknown Verified 10/28/21 08:43 [From Flagyl] Penicillins Allergy Unknown Verified 10/28/21 08:43 rosuvastatin calcium Allergy MUSCLE Verified 10/28/21 08:43 [From Crestor] ACHES [id number] Reductase Allergy Unknown Verified 10/28/21 08:43 Inhibitor Sulfa (Sulfonamide Allergy Unknown Verified 10/28/21 08:43 Antibiotics) tetracycline [Tetracycline] Allergy Unknown Verified 10/28/21 08:43 triamterene [From Dyazide] Allergy Unknown Verified 10/28/21 08:43 watermelon Allergy Swelling Uncoded 10/28/21 08:43 Physical Exam Vitals: Vital Signs Temp Pulse Pulse Resp BP Pulse Ox 10/29/21 07:49 97.8 F 75 17 169/68 96 10/28/21 20:00 98.4 F 80 19 144/72 96 10/28/21 16:34 97.8 F 81 21 169/72 98 10/28/21 16:00 72 16 156/69 99 10/28/21 15:30 72 16 167/67 100 10/28/21 15:00 71 16 161/73 100 10/28/21 14:45 72 16 156/71 100 10/28/21 14:30 69 16 157/68 100 10/28/21 14:15 72 16 171/84 100 10/28/21 14:00 72 16 164/68 100 10/28/21 13:45 74 16 156/68 100 10/28/21 13:30 72 16 168/70 100 10/28/21 13:15 74 16 161/71 100 10/28/21 13:00 97 F L 79 16 182/79 100 10/28/21 08:59 98.8 F 62 16 129/63 97 Intake and Output 10/28/21 10/29/21 10/29/21 22:59 06:59 14:59 Intake Total 400 Balance 400 Intake: IV 400 Other: Voiding Method Indwelling Catheter # Voids 350 Weight 93.3 kg Results CBC & Chem 7: 10/29/21 04:33 10/29/21 04:33 Labs: Abnormal Lab Results - Last 24 Hours (Table) 10/28/21 10/28/21 10/28/21 Range/Units 09:07 13:13 16:45 WBC (3.8-10.6) k/uL Neutrophils # (1.3-7.7) k/uL Lymphocytes # (1.0-4.8) k/uL Sodium (137-145) mmol/L Glucose (74-99) mg/dL POC Glucose (mg/dL) 184 H 189 H 179 H (75-99) mg/dL 10/28/21 10/28/21 10/28/21 Range/Units 20:57 21:28 21:28 WBC 15.3 H (3.8-10.6) k/uL Neutrophils # 14.0 H (1.3-7.7) k/uL Lymphocytes # 0.6 L (1.0-4.8) k/uL Sodium 135 L (137-145) mmol/L Glucose 206 H (74-99) mg/dL POC Glucose (mg/dL) 213 H (75-99) mg/dL 10/29/21 Range/Units 07:12 WBC (3.8-10.6) k/uL Neutrophils # (1.3-7.7) k/uL Lymphocytes # (1.0-4.8) k/uL Sodium (137-145) mmol/L Glucose (74-99) mg/dL POC Glucose (mg/dL) 181 H (75-99) mg/dL Assessment and Plan Time with Patient: Less than 30
[2021-10-29] MEDS: DEXTROSE 5%-0.9% NACL 1,000 ML with POTASSIUM CHLORIDE 20 MEQ IV SCH ×2 (17:10)
[2021-10-29 17:11] LABS: Glucose,Whole Blood 160 mg/dL (75-99)
[2021-10-29 20:07] LABS: Glucose,Whole Blood 175 mg/dL (75-99)
[2021-10-29] MEDS ORDERED: PRAVASTATIN SODIUM 80 MG TAB PO SCH (21:00)
[2021-10-29] MEDS ORDERED: SENNOSIDES-DOCUSATE SODIUM 1 EACH TAB PO SCH (21:00)
[2021-10-30] MEDS: HYDROmorphone 1 MG/ML 1 ML SYRINGE IVP PRN ×2 (02:36→06:17)
[2021-10-30] MEDS: DEXTROSE 5%-0.9% NACL 1,000 ML with POTASSIUM CHLORIDE 20 MEQ IV SCH ×2 (03:46)
[2021-10-30] MEDS: LEVOTHYROXINE 75 MCG TAB PO SCH (05:23)
[2021-10-30] MEDS: LACTATED RINGERS 1,000 ML IV SCH (05:24)
[2021-10-30] MEDS: KETOROLAC 15 MG/ML 1 ML VIAL IVP PRN ×2 (06:15→11:49)
[2021-10-30 07:02] LABS: Glucose,Whole Blood 142 mg/dL (75-99)
[2021-10-30] MEDS: INSULIN ASPART (NovoLOG) 100 UNIT/ML VIAL SQ SCH ×2 (07:40→11:14)
[2021-10-30] MEDS: SOTALOL 80 MG TAB PO SCH (07:40)
[2021-10-30] MEDS: PANTOPRAZOLE 40 MG TABLET PO SCH (07:40)
[2021-10-30] MEDS: MULTIVITAMINS, THERA 1 EACH TAB PO SCH (07:41)
[2021-10-30] MEDS: LOSARTAN 50 MG TAB PO SCH (07:41)
[2021-10-30] MEDS: MEMANTINE 10 MG TAB PO SCH (07:41)
[2021-10-30] MEDS: VORTIOXETINE HYDROBROMIDE 10 MG TABLET PO SCH (07:41)
[2021-10-30] MEDS: DONEPEZIL 10 MG TAB PO SCH (07:41)
[2021-10-30] MEDS: amLODIPine 5 MG TAB PO SCH (07:41)
[2021-10-30 09:36] LABS: Basophils # (A) 0.1 k/uL (0-0.2); Basophils % (A) 1 %; Eosinophils # (A) 0.1 k/uL (0-0.7); Eosinophils % (A) 1 %; HCT 40.1 % (34.0-46.0); HGB 12.5 gm/dL (11.4-16.0); Lymphocytes # (A) 1.1 k/uL (1.0-4.8); Lymphocytes % (A) 11 %; MCH 29.7 pg (25.0-35.0); MCHC 31.1 g/dL (31.0-37.0); MCV 95.3 fL (80.0-100.0); Mean Platelet Volume 9.5; Monocytes # (A) 0.9 k/uL (0-1.0); Monocytes % (A) 9 %; Neutrophils # (A) 7.9 k/uL (1.3-7.7); Neutrophils % (A) 78 %; Platelet Count 187 k/uL (150-450); RBC 4.21 m/uL (3.80-5.40); RDW 12.7 % (11.5-15.5); WBC 10.2 k/uL (3.8-10.6)
[2021-10-30] MEDS ORDERED: HYDROcodone/APAP 5-325MG 1 EACH TAB PO PRN (10:18)
[2021-10-30 11:13] LABS: Glucose,Whole Blood 119 mg/dL (75-99)
--- NOTE | 2021-10-30 12:33 | P.DS ---
Providers Date of admission: 10/28/21 08:15 Expected date of discharge: 10/30/21 Attending physician: Sumit Sweet Consults: 10/28/21 12:52 Consult Physician Routine Consulting Provider: Awilda Vaughan Consult Reason/Comments: Medical management Do you want consulting provider notified?: Yes Primary care physician: Maryann Craig Hospital Course: Discharge diagnoses 1. Right colon polyp status post laparoscopic-assisted right colectomy, lysis of extensive adhesions, partial omentectomy Hospital course This 81-year-old female who underwent previous colonoscopy by Dr. Luis. Patient's found have a large 4 cm polyp just above the ileocecal valve. This was not able to be removed during colonoscopy due to the size of the polyp. Patient is status post laparoscopic-assisted right colectomy, lysis of extensive adhesions, partial omentectomy. Patient tolerated surgery well. Her pain is controlled. She is tolerating diet. She is having bowel movements. She has been up and ambulating. She is afebrile. She is stable for discharge. Please refer to chart for any further details. Physician Social Work Coordinator note has been reviewed by physician. Signing provider agrees with the documented findings, assessment, and plan of care. Patient Condition at Discharge: Stable Plan - Discharge Summary Discharge Rx Participant: Yes New Discharge Prescriptions: New HYDROcodone/APAP 5-325MG [[place] 5-325] 1 tab PO Q6HR PRN 3 Days #12 tab PRN Reason: Pain Continue Levothyroxine Sodium [Synthroid] 150 mcg PO DAILY Pravastatin Sodium [Pravachol] 80 mg PO HS Vortioxetine Hydrobromide [Trintellix] 10 mg PO DAILY Sotalol [Betapace] 80 mg PO BID Multivitamins, Thera [Multivitamin (formulary)] 1 tab PO DAILY Ferrous Sulfate [Iron (65 MG Elemental)] 325 mg PO DAILY amLODIPine [Norvasc] 5 mg PO DAILY Aspirin [[place] Aspirin EC] 81 mg PO DAILY Pantoprazole [Protonix] 40 mg PO AC-BID #60 tablet. Donepezil [Aricept] 10 mg PO DAILY Memantine [Namenda] 10 mg PO DAILY Rivaroxaban [Xarelto] 15 mg PO HS Sennosides-Docusate Sodium [Senokot-S] 1 tab PO HS Cyanocobalamin [Vitamin B-12] 500 mcg PO DAILY No Action Losartan/Hydrochlorothiazide [Losartan-Hctz 100-25 mg Tab] 1 tab PO DAILY Mirabegron [Myrbetriq] 50 mg PO DAILY Discharge Medication List Levothyroxine Sodium [Synthroid] 150 mcg PO DAILY 09/30/13 [History] Pravastatin Sodium [Pravachol] 80 mg PO HS 11/07/14 [History] Multivitamins, Thera [Multivitamin (formulary)] 1 tab PO DAILY 06/01/18 [History] Sotalol [Betapace] 80 mg PO BID 06/01/18 [History] Vortioxetine Hydrobromide [Trintellix] 10 mg PO DAILY 06/01/18 [History] Ferrous Sulfate [Iron (65 MG Elemental)] 325 mg PO DAILY 06/16/18 [History] amLODIPine [Norvasc] 5 mg PO DAILY 06/16/18 [History] Aspirin [[place] Aspirin EC] 81 mg PO DAILY 06/28/18 [History] Losartan/Hydrochlorothiazide [Losartan-Hctz 100-25 mg Tab] 1 tab PO DAILY 08/18/18 [History] Pantoprazole [Protonix] 40 mg PO AC-BID #60 tablet. 09/16/18 [Rx] Donepezil [Aricept] 10 mg PO DAILY 06/22/21 [History] Memantine [Namenda] 10 mg PO DAILY 06/22/21 [History] Mirabegron [Myrbetriq] 50 mg PO DAILY 06/22/21 [History] Sennosides-Docusate Sodium [Senokot-S] 1 tab PO HS 06/22/21 [History] Cyanocobalamin [Vitamin B-12] 500 mcg PO DAILY 07/16/21 [History] Rivaroxaban [Xarelto] 15 mg PO HS 07/16/21 [History] HYDROcodone/APAP 5-325MG [[place] 5-325] 1 tab PO Q6HR PRN 3 Days #12 tab 10/30/21 [Rx] Follow up Appointment(s)/Referral(s): [facility] Vis[facility] Nurse, [NON-STAFF] - As Needed Sumit Sweet MD [STAFF PHYSICIAN] - 1 Week Activity/Diet/Wound Care/Special Instructions: No driving while taking [place] No lifting over 10 pounds Shower daily. No soaking or tub baths for 2 weeks Very light activity until you are reevaluated at your follow up appointment with your surgeon Continue a regular diet at home Discharge Disposition: HOME WITH HOME HEALTH SERVICES
--- NOTE | 2021-10-30 12:40 | P.PN ---
Subjective Progress Note Date: 10/30/21 This is an 81 year old female who is postoperative day #1 for scheduled right colectomy with partial omentectomy for large 4cm polyp found on recent colonoscopy. Past medical history significant for atrial fibrillation, COPD, Diabetes Mellitus, Hypertension, Hyperlipidemia, Memory impairment, hypothyroid, GERD. Patient is hyperglycemic with blood sugars in the 180s to 200s, does not appear to be on any diabetic medications at home will use novolog while inpatient, home medications have been resume. Will hold hydrochlorothiazide and resume losartan, norvasc. Xarelto continues to be held per surgery. Labs today showing white count 15.3, sodium 135, potassium 3.6. Blood pressure 160/70's, afebrile, 96% on 2L Nasal cannula. Patient is slightly confused, she has son at bedside who is updated on plan of care. 10/30/2021 Patient evaluated today Postoperative Day #2 right colectomy. Tolerating clear liquid well and has been advanced to full liquid diet. PT/OT is recommending home with homecare and 15/12 supervision vs. subacute rehab. Patient does have history of memory impairment /dementia and is alert x 1-2. She knows she had surgery and reports minimal abdominal and incisional pain with rest. She is passing gas, reports BM, and states she is urinating without difficulty. Blood pressure today 166/69, 93% room air, afebrile, heart 72. Incentive spirometer has been ordered. Review of Systems Constitutional: Denied any fatigue denied any fever. Cardio vascular: denied any chest pain, palpitations Gastrointestinal: denied any nausea, vomiting, diarrhea, reports BM reports passing gas Pulmonary: Denied any shortness of breath cough Neurologic denied any new focal deficits All inpatient medications were reviewed and appropriate changes in these medications as dictated in the interval history and assessment and plan. PHYSICAL EXAMINATION: GENERAL: The patient is alert and oriented x3, not in any acute distress. Well developed, well nourished. HEENT: Pupils are round and equally reacting to light. EOMI. No scleral icterus. No conjunctival pallor. Normocephalic, atraumatic. No pharyngeal erythema. No thyromegaly. CARDIOVASCULAR: S1 and S2 present. No murmurs, rubs, or gallops. PULMONARY: Chest is clear to auscultation, no wheezing or crackles. Diminished. ABDOMEN: Soft, tender, nondistended, normoactive bowel sounds. No palpable organomegaly. Post surgical abdomen with 2 laproscopic incisions and midline incision closed with oskar. Dressing intact. MUSCULOSKELETAL: No joint swelling or deformity. EXTREMITIES: No cyanosis, clubbing, or pedal edema. NEUROLOGICAL: Gross neurological examination did not reveal any focal deficits. SKIN: No rashes. Assessment and Plan Assessment Postoperative day #2 colectomy with partial omentectomy History of colonic polyps with previous polypectomy Atrial fibrillation anticoagulated wtih xarelto History of COPD without acute exacerbation Diabetes with hyperglycemia History of memory impairment Hypertension Hyperlipidemia Hypothyroidism Gastroesophageal reflux disease GI Prophylaxis: Protonix DVT Prophylaxis: As per primary Full Code Plan Resume appropriate home medications Advance diet to full liquid Pain management Encourage IS, 10 x an hour while awake Will order abdominal binder Cleared medically for discharge home Thank you kindly for this consultation The impression and plan of care has been dictated by Catherine Yee, Nurse Practitioner as directed. Dr. Nadia MD I have performed a history and physical examination and medical decision making of this patient, discussed the same with the dictator, and agree with the dictators assessment and plan as written, documented as a scribe. Based on total visit time, I have performed more than 50% of this visit. Objective - Vital Signs Vital signs: Vital Signs Temp 98.7 F 10/30/21 02:00 Pulse 72 10/30/21 02:00 Resp 16 10/30/21 02:00 BP 166/69 10/30/21 02:00 Pulse Ox 93 L 10/30/21 02:00 FiO2 Intake & Output 10/29/21 10/30/21 10/30/21 18:59 06:59 18:59 Intake Total 480 Output Total 1200 1350 Balance -720 -1350 Intake: Oral 480 Output: Urine 1200 1350 Other: Voiding Method Indwelling Catheter # Bowel Movements 1 - Labs CBC & Chem 7: 10/30/21 08:45 10/29/21 04:33 Labs: Abnormal Lab Results - Last 24 Hours (Table) 10/29/21 10/29/21 10/29/21 Range/Units 04:33 11:14 17:10 Anion Gap 9.80 L (10.00-18.00) mmol/L Glucose 176 H (70-110) mg/dL POC Glucose (mg/dL) 173 H 160 H (75-99) mg/dL 10/29/21 10/30/21 Range/Units 20:05 07:01 Anion Gap (10.00-18.00) mmol/L Glucose (70-110) mg/dL POC Glucose (mg/dL) 175 H 142 H (75-99) mg/dL Assessment and Plan Time with Patient: Less than 30
[2021-10-30 14:47] VITALS: BP 148/60; PULSE 64; RESP 20; TEMP 97.9
== END 2021-10-30 15:26 | disposition home health service (06) | DRG 331 ==
LOC: 2ORMAIN 08:15 → 4SSUR 16:09
PROVIDERS: ADMIT Surgery; ATTEND Surgery
PROC: 0DNW4ZZ Release Peritoneum, Percutaneous Endoscopic Approach (ICD-10-PCS; principal; 2021-10-28 10:10)
PROC: 0DBF4ZZ Excision of Right Large Intestine, Percutaneous Endoscopic Approach (ICD-10-PCS; principal; 2021-10-28 10:10)
PROC: 0DBU4ZZ Excision of Omentum, Percutaneous Endoscopic Approach (ICD-10-PCS; principal; 2021-10-28 10:10)
DX: K63.5 Polyp of colon (principal); I10 Essential (primary) hypertension; E03.9 Hypothyroidism, unspecified; E11.65 Type 2 diabetes mellitus with hyperglycemia; E78.5 Hyperlipidemia, unspecified; M81.0 Age-related osteoporosis without current pathological fracture; K66.0 Peritoneal adhesions (postprocedural) (postinfection); K21.9 Gastro-esophageal reflux disease without esophagitis; F03.90 Unspecified dementia, unspecified severity, without behavioral disturbance, psychotic disturbance, mood disturbance, and anxiety; I48.91 Unspecified atrial fibrillation; J44.9 Chronic obstructive pulmonary disease, unspecified; M19.90 Unspecified osteoarthritis, unspecified site; R32 Unspecified urinary incontinence; Z96.641 Presence of right artificial hip joint; I25.2 Old myocardial infarction; Z86.14 Personal history of Methicillin resistant Staphylococcus aureus infection; Z79.01 Long term (current) use of anticoagulants; Z79.82 Long term (current) use of aspirin; Z79.890 Hormone replacement therapy; Z79.899 Other long term (current) drug therapy; Z86.010 Personal history of colon polyps; Z87.891 Personal history of nicotine dependence; Z90.710 Acquired absence of both cervix and uterus; Z98.51 Tubal ligation status; Z82.49 Family history of ischemic heart disease and other diseases of the circulatory system; Z84.89 Family history of other specified conditions
CPT/HCPCS: 80048; 85025; 85027; 86850; 86900; 86901; 88309; 93005

== ENCOUNTER 2021-11-02 03:40 | Observation (INO) | payer MEDICARE, BC ==
[2021-11-02] MEDS ORDERED: SODIUM CHLORIDE 0.9% 1,000 ML IV STA (03:48)
--- NOTE | 2021-11-02 03:59 | ED ---
Recheck HPI - General Stated Complaint: Post-op Bleeding and Pain Source: patient, RN notes reviewed, old records reviewed Mode of arrival: ambulatory Limitations: no limitations - History of Present Illness Initial Comments: This is an 81-year-old female to the emergency department for evaluation. Sakina ent presents today for evaluation regards to abdominal pain postoperative abdominal pain. May consider today was for bright red blood per rectum which with the bathroom today she went to the bathroom this morning and noticed blood on the toilet paper as well as blood in the stool. No recent fevers no nausea vomiting she is tolerating advancing over diet and has been having normal bowel movements. Patient is almost one week out from bowel resection. She does have significant diffuse abdominal pain -: days(s) Returns Today for: persistent/worsening pain related to initial visit Symptoms Since Prior Visit: worsening pain Context: other (Patient is about a week. Postoperative bowel resection) Associated Symptoms: abdominal pain Treatments Prior to Arrival: Given Pain Meds on - Related Data Home Medications Medication Instructions Recorded Confirmed Levothyroxine Sodium [Synthroid] 150 mcg PO DAILY 09/30/13 11/02/21 Pravastatin Sodium [Pravachol] 80 mg PO HS 11/07/14 11/02/21 Multivitamins, Thera [Multivitamin 1 tab PO DAILY 06/01/18 11/02/21 (formulary)] Sotalol [Betapace] 80 mg PO BID 06/01/18 11/02/21 Vortioxetine Hydrobromide 10 mg PO DAILY 06/01/18 11/02/21 [Trintellix] Ferrous Sulfate [Iron (65 MG 325 mg PO DAILY 06/16/18 11/02/21 Elemental)] amLODIPine [Norvasc] 5 mg PO DAILY 06/16/18 11/02/21 Aspirin [[place] Aspirin EC] 81 mg PO DAILY 06/28/18 11/02/21 Losartan/Hydrochlorothiazide 1 tab PO DAILY 08/18/18 11/02/21 [Losartan-Hctz 100-25 mg Tab] Donepezil [Aricept] 10 mg PO DAILY 06/22/21 11/02/21 Memantine [Namenda] 10 mg PO DAILY 06/22/21 11/02/21 Mirabegron [Myrbetriq] 50 mg PO DAILY 06/22/21 11/02/21 Sennosides-Docusate Sodium 1 tab PO HS 06/22/21 11/02/21 [Senokot-S] Cyanocobalamin [Vitamin B-12] 500 mcg PO DAILY 07/16/21 11/02/21 Rivaroxaban [Xarelto] 15 mg PO HS 07/16/21 11/02/21 Previous Rx's Medication Instructions Recorded Pantoprazole [Protonix] 40 mg PO AC-BID #60 tablet. 09/16/18 HYDROcodone/APAP 5-325MG [[place] 1 tab PO Q6HR PRN 3 Days #12 tab 10/30/21 5-325] Allergies Allergy/AdvReac Type Severity Reaction Status Date / Time azithromycin Allergy Rash/Hives Verified 11/02/21 12:12 [From Zithromax Z-Chau] codeine Allergy Unknown Verified 11/02/21 12:12 hydrochlorothiazide Allergy Unknown Verified 11/02/21 12:12 [From Dyazide] lincomycin HCl Allergy Unknown Verified 11/02/21 12:12 [From Lincocin] meperidine HCl [From Demerol] Allergy Unknown Verified 11/02/21 12:12 metronidazole [From Flagyl] Allergy Unknown Verified 11/02/21 12:12 Metronidazole HCl Allergy Unknown Verified 11/02/21 12:12 [From Flagyl] Penicillins Allergy Unknown Verified 11/02/21 12:12 [place]-MGS-HdF Reductase Allergy Unknown Verified 11/02/21 12:12 Inhibitor Sulfa (Sulfonamide Allergy Unknown Verified 11/02/21 12:12 Antibiotics) tetracycline [Tetracycline] Allergy Unknown Verified 11/02/21 12:12 triamterene [From Dyazide] Allergy Unknown Verified 11/02/21 12:12 watermelon Allergy Swelling Verified 11/02/21 12:12 atorvastatin calcium AdvReac MUSCLE Verified 11/02/21 12:12 [From Lipitor] ACHES rosuvastatin calcium AdvReac MUSCLE Verified 11/02/21 12:12 [From Crestor] ACHES Review of Systems ROS Statement: Those systems with pertinent positive or pertinent negative responses have been documented in the HPI. ROS Other: All systems not noted in ROS Statement are negative. Past Medical History Past Medical History: Atrial Fibrillation, COPD, Diabetes Mellitus, GERD/Reflux, Hyperlipidemia, Hypertension, Memory Impairment, Osteoarthritis (OA), Pneumonia, Thyroid Disorder Additional Past Medical History / Comment(s): Right hip infection w/wound vac in Jun.-tx. @[facility]-wound completely healed per son, SHINGLES TO RT FACE/EYE. diet controlled diabetes, osteoporosis, recent blood in stool,. ANEMIA WITH BLOOD TRANSFUSIONS. 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 Past Surgical History: Appendectomy, Heart Catheterization With Stent, Hysterectomy, Joint Replacement, Orthopedic Surgery, Tonsillectomy, Tubal Ligation Additional Past Surgical History / Comment(s): RT HIP REPLACEMENT & multiple surgeries on it due to infection, COLONOSCOPY WITH PARTIAL POLYPECTOMY Past Anesthesia/Blood Transfusion Reactions: No Reported Reaction Date of Last Stent Placement:: 2017 Past Psychological History: Depression Smoking Status: Former smoker Past Alcohol Use History: None Reported Past Drug Use History: None Reported - Past Family History Daughter(s) Family Medical History: Cancer Father History Unknown: Yes Family Medical History: Hypertension Additional Family Medical History / Comment(s): BRAIN TUMOR Mother Family Medical History: Cancer General Exam Limitations: no limitations General appearance: alert, in no apparent distress, obese Head exam: Present: atraumatic, normocephalic, normal inspection Eye exam: Present: normal appearance, PERRL, EOMI. Absent: scleral icterus, conjunctival injection, periorbital swelling ENT exam: Present: normal exam, mucous membranes moist Neck exam: Present: normal inspection. Absent: tenderness, meningismus, lymphadenopathy Respiratory exam: Present: normal lung sounds bilaterally. Absent: respiratory distress, wheezes, rales, rhonchi, stridor Cardiovascular Exam: Present: regular rate, normal rhythm, normal heart sounds. Absent: systolic murmur, diastolic murmur, rubs, gallop, clicks GI/Abdominal exam: Present: soft, tenderness, guarding, normal bowel sounds. Absent: distended, rebound, rigid Extremities exam: Present: normal inspection, full ROM, normal capillary refill. Absent: tenderness, pedal edema, joint swelling, calf tenderness Back exam: Present: normal inspection Neurological exam: Present: alert, oriented X3, CN II-XII intact Psychiatric exam: Present: normal affect, normal mood Skin exam: Present: warm, dry, intact, normal color. Absent: rash Course Vital Signs 11/02/21 11/02/21 11/02/21 03:50 04:54 07:26 Temperature 97.9 F 97.5 F L Pulse Rate 69 78 65 Respiratory 16 16 16 Rate Blood Pressure 194/80 182/80 138/66 O2 Sat by Pulse 98 96 98 Oximetry - Reevaluation(s) Reevaluation #1: 11/02/21 Medical record is reviewed Reevaluation #2: 11/02/21 Patient informed of results and questions have been answered Reevaluation #3: 11/02/21 Patient's pain is improved here in the emergency department - Consultations Consultation #1: Spoke with Dr. Sweet who will see the patient Medical Decision Making - Medical Decision Making 81 female to the emergency department for evaluation of postop abdominal pain GI bleed today bright red blood per rectum 1. Patient will admit for trending of hemoglobin and further evaluation management - Lab Data Result diagrams: 11/02/21 04:06 11/02/21 04:06 Lab Results 11/02/21 11/02/21 11/02/21 Range/Units 04:06 04:06 04:06 WBC 7.3 (3.8-10.6) k/uL RBC 4.07 (3.80-5.40) m/uL Hgb 12.3 (11.4-16.0) gm/dL Hct 37.2 (34.0-46.0) % MCV 91.4 (80.0-100.0) fL MCH 30.2 (25.0-35.0) pg MCHC 33.0 (31.0-37.0) g/dL RDW 13.1 (11.5-15.5) % Plt Count 273 (150-450) k/uL MPV 9.0 Neutrophils % 72 % Lymphocytes % 15 % Monocytes % 7 % Eosinophils % 4 % Basophils % 0 % Neutrophils # 5.3 (1.3-7.7) k/uL Lymphocytes # 1.1 (1.0-4.8) k/uL Monocytes # 0.5 (0-1.0) k/uL Eosinophils # 0.3 (0-0.7) k/uL Basophils # 0.0 (0-0.2) k/uL PT 12.3 H (9.0-12.0) sec INR 1.2 H (<1.2) APTT 33.8 H (22.0-30.0) sec Sodium 136 L (137-145) mmol/L Potassium 3.7 (3.5-5.1) mmol/L Chloride 103 (98-107) mmol/L Carbon Dioxide 29 (22-30) mmol/L Anion Gap 4 mmol/L BUN 18 H (7-17) mg/dL Creatinine 0.77 (0.52-1.04) mg/dL Est GFR (CKD-EPI)AfAm 84 (>60 ml/min/1.73 sqM) Est GFR (CKD-EPI)NonAf 73 (>60 ml/min/1.73 sqM) Glucose 124 H (74-99) mg/dL Calcium 9.7 (8.4-10.2) mg/dL Phosphorus 3.3 (2.5-4.5) mg/dL Magnesium 1.8 (1.6-2.3) mg/dL Total Bilirubin 0.4 (0.2-1.3) mg/dL AST 19 (14-36) U/L ALT 14 (4-34) U/L Alkaline Phosphatase 87 (38-126) U/L Total Protein 5.6 L (6.3-8.2) g/dL Albumin 3.2 L (3.5-5.0) g/dL - Radiology Data Radiology results: report reviewed (CT abdomen and pelvis minimal free fluid likely physiologic no acute findings postsurgical changes), image reviewed Disposition Clinical Impression: Lower gastrointestinal hemorrhage, Abdominal pain, Postoperative pain Disposition: ADMITTED IP TO THIS [facility] Condition: Good Is patient prescribed a controlled substance at d/c from ED?: No
[2021-11-02] MEDS ORDERED: ACETAMINOPHEN IV (For NPO) 1,000 MG in EMPTY BAG 1 BAG IVPB STA (04:15)
[2021-11-02 04:46] LABS: Basophils % (A) 0 %; Eosinophils # (A) 0.3 k/uL (0-0.7); Eosinophils % (A) 4 %; HCT 37.2 % (34.0-46.0); HGB 12.3 gm/dL (11.4-16.0); Lymphocytes # (A) 1.1 k/uL (1.0-4.8); Lymphocytes % (A) 15 %; MCH 30.2 pg (25.0-35.0); MCV 91.4 fL (80.0-100.0); Monocytes # (A) 0.5 k/uL (0-1.0); Monocytes % (A) 7 %; Neutrophils # (A) 5.3 k/uL (1.3-7.7); Neutrophils % (A) 72 %; Platelet Count 273 k/uL (150-450); RBC 4.07 m/uL (3.80-5.40); RDW 13.1 % (11.5-15.5); WBC 7.3 k/uL (3.8-10.6)
[2021-11-02 04:55] LABS: INR 1.2 (<1.2); Partial Thromboplastin Time 33.8 sec (22.0-30.0); Prothrombin Time 12.3 sec (9.0-12.0)
[2021-11-02 04:56] LABS: Albumin 3.2 g/dL (3.5-5.0); Calcium 9.7 mg/dL (8.4-10.2); Magnesium 1.8 mg/dL (1.6-2.3); Phosphorus 3.3 mg/dL (2.5-4.5); Potassium 3.7 mmol/L (3.5-5.1); Total Bilirubin 0.4 mg/dL (0.2-1.3); Total Protein 5.6 g/dL (6.3-8.2)
[2021-11-02] MEDS ORDERED: NALOXONE 0.4 MG/ML 1 ML VIAL IV PRN (06:43)
[2021-11-02] MEDS ORDERED: ONDANSETRON 4 MG/2 ML VIAL IVP PRN (06:43)
[2021-11-02] MEDS ORDERED: MORPHINE SULFATE 4 MG/ML SYRINGE IV PRN (06:43)
--- NOTE | 2021-11-02 07:07 | CT ---
EXAMINATION TYPE: CT abdomen pelvis w con DATE OF EXAM: 11/02/2021 COMPARISON: 07/25/2021 HISTORY: pain CT DLP: 1737.3 mGycm Automated exposure control for dose reduction was used. CONTRAST: Performed with IV Contrast, patient injected with 100 mL of Isovue 300. Lung bases show mild subsegmental atelectasis. Liver spleen stomach and pancreas appear intact. Gallb ladder is intact. The bile ducts are not dilated. There is no adrenal mass. Kidneys have normal size. No hydronephrosis. There is no retroperitoneal ad enopathy. Kidneys show satisfactory contrast opacification. Previous surgery at the cecum. There is m inimal stranding in the right lower quadrant. There is some fluid in the right paracolic gutter. Ther e is small amount of low-density fluid in the pelvis. There is right hip prosthesis. There is no evidence of free air. No sign of a bowel obstruction. The lumbar vertebrae have normal alignment. No compression fracture. There is mild hypertrophic facet arthropathy. There is hysterectomy. No pelvic mass. Bony pelvis is intact. The hip joints are intact . There is right hip prosthesis. Sacroiliac joints are intact. IMPRESSION: Postsurgical changes in the right lower quadrant with some low-density free fluid. No bowel obstructi on. No evidence of ileus.
[2021-11-02] MEDS: PANTOPRAZOLE 40 MG/10 ML VIAL IV SCH (10:44)
[2021-11-02] MEDS: SODIUM CHLORIDE 0.9% 1,000 ML IV SCH (10:51)
--- NOTE | 2021-11-02 12:01 | P.GSHP ---
History of Present Illness H&P Date: 11/02/21 Chief Complaint: GI bleed This is a 81-year-old female who's prostate 10 days status post right colectomy for colonic polyps. Patient states she had a bowel movement showed some blood yesterday. She has no significant abdominal pain. He has not had any further bleeding. Past Medical History Past Medical History: Atrial Fibrillation, COPD, Diabetes Mellitus, GERD/Reflux, Hyperlipidemia, Hypertension, Memory Impairment, Osteoarthritis (OA), Pneumonia, Thyroid Disorder Additional Past Medical History / Comment(s): Right hip infection w/wound vac in Jun.-tx. @[facility]-wound completely healed per son, SHINGLES TO RT FACE/EYE. diet controlled diabetes, osteoporosis, recent blood in stool,. ANEMIA WITH BLOOD TRANSFUSIONS. 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 Past Surgical History: Appendectomy, Heart Catheterization With Stent, Hysterectomy, Joint Replacement, Orthopedic Surgery, Tonsillectomy, Tubal Ligation Additional Past Surgical History / Comment(s): RT HIP REPLACEMENT & multiple surgeries on it due to infection, COLONOSCOPY WITH PARTIAL POLYPECTOMY Past Anesthesia/Blood Transfusion Reactions: No Reported Reaction Date of Last Stent Placement:: 2017 Past Psychological History: Depression Smoking Status: Former smoker Past Alcohol Use History: None Reported Past Drug Use History: None Reported - Past Family History Daughter(s) Family Medical History: Cancer Father History Unknown: Yes Family Medical History: Hypertension Additional Family Medical History / Comment(s): BRAIN TUMOR Mother Family Medical History: Cancer Medications and Allergies Home Medications Medication Instructions Recorded Confirmed Type Levothyroxine Sodium [Synthroid] 150 mcg PO DAILY 09/30/13 10/28/21 History Pravastatin Sodium [Pravachol] 80 mg PO HS 11/07/14 10/28/21 History Multivitamins, Thera [Multivitamin 1 tab PO DAILY 06/01/18 10/24/21 History (formulary)] Sotalol [Betapace] 80 mg PO BID 06/01/18 10/28/21 History Vortioxetine Hydrobromide 10 mg PO DAILY 06/01/18 10/28/21 History [Trintellix] Ferrous Sulfate [Iron (65 MG 325 mg PO DAILY 06/16/18 10/28/21 History Elemental)] amLODIPine [Norvasc] 5 mg PO DAILY 06/16/18 10/28/21 History Aspirin [[place] Aspirin EC] 81 mg PO DAILY 06/28/18 10/24/21 History Losartan/Hydrochlorothiazide 1 tab PO DAILY 08/18/18 10/28/21 History [Losartan-Hctz 100-25 mg Tab] Pantoprazole [Protonix] 40 mg PO AC-BID #60 tablet. 09/16/18 10/28/21 Rx Donepezil [Aricept] 10 mg PO DAILY 06/22/21 10/28/21 History Memantine [Namenda] 10 mg PO DAILY 06/22/21 10/28/21 History Mirabegron [Myrbetriq] 50 mg PO DAILY 06/22/21 10/28/21 History Sennosides-Docusate Sodium 1 tab PO HS 06/22/21 10/28/21 History [Senokot-S] Cyanocobalamin [Vitamin B-12] 500 mcg PO DAILY 07/16/21 10/28/21 History Rivaroxaban [Xarelto] 15 mg PO HS 07/16/21 10/28/21 History HYDROcodone/APAP 5-325MG [[place] 1 tab PO Q6HR PRN 3 Days #12 tab 10/30/21 Rx 5-325] Allergies Allergy/AdvReac Type Severity Reaction Status Date / Time atorvastatin calcium Allergy MUSCLE Verified 11/02/21 03:49 [From Lipitor] ACHES azithromycin Allergy Rash/Hives Verified 11/02/21 03:49 [From Zithromax Z-Chau] codeine Allergy Unknown Verified 11/02/21 03:49 hydrochlorothiazide Allergy Unknown Verified 11/02/21 03:49 [From Dyazide] lincomycin HCl Allergy Unknown Verified 11/02/21 03:49 [From Lincocin] meperidine HCl [From Demerol] Allergy Unknown Verified 11/02/21 03:49 metronidazole [From Flagyl] Allergy Unknown Verified 11/02/21 03:49 Metronidazole HCl Allergy Unknown Verified 11/02/21 03:49 [From Flagyl] Penicillins Allergy Unknown Verified 11/02/21 03:49 rosuvastatin calcium Allergy MUSCLE Verified 11/02/21 03:49 [From Crestor] ACHES [id number] Reductase Allergy Unknown Verified 11/02/21 03:49 Inhibitor Sulfa (Sulfonamide Allergy Unknown Verified 11/02/21 03:49 Antibiotics) tetracycline [Tetracycline] Allergy Unknown Verified 11/02/21 03:49 triamterene [From Dyazide] Allergy Unknown Verified 11/02/21 03:49 watermelon Allergy Swelling Uncoded 11/02/21 03:49 Surgical - Exam Vital Signs Temp Pulse Resp BP Pulse Ox 97.9 F 69 16 194/80 98 11/02/21 03:50 11/02/21 03:50 11/02/21 03:50 11/02/21 03:50 11/02/21 03:50 - General well developed, well nourished, no distress - Eyes PERRL - ENT normal pinna - Neck no masses - Respiratory normal expansion - Cardiovascular Rhythm: regular - Abdomen Incision clean dry intact Abdomen: soft, non tender Results - Labs 11/02/21 04:06 11/02/21 04:06 Abnormal Lab Results - Last 24 Hours (Table) 11/02/21 11/02/21 Range/Units 04:06 04:06 PT 12.3 H (9.0-12.0) sec INR 1.2 H (<1.2) APTT 33.8 H (22.0-30.0) sec Sodium 136 L (137-145) mmol/L BUN 18 H (7-17) mg/dL Glucose 124 H (74-99) mg/dL Total Protein 5.6 L (6.3-8.2) g/dL Albumin 3.2 L (3.5-5.0) g/dL Diabetes panel 11/02/21 Range/Units 04:06 Sodium 136 L (137-145) mmol/L Potassium 3.7 (3.5-5.1) mmol/L Chloride 103 (98-107) mmol/L Carbon Dioxide 29 (22-30) mmol/L BUN 18 H (7-17) mg/dL Creatinine 0.77 (0.52-1.04) mg/dL Glucose 124 H (74-99) mg/dL Calcium 9.7 (8.4-10.2) mg/dL AST 19 (14-36) U/L ALT 14 (4-34) U/L Alkaline Phosphatase 87 (38-126) U/L Total Protein 5.6 L (6.3-8.2) g/dL Albumin 3.2 L (3.5-5.0) g/dL Calcium panel 11/02/21 Range/Units 04:06 Calcium 9.7 (8.4-10.2) mg/dL Phosphorus 3.3 (2.5-4.5) mg/dL Albumin 3.2 L (3.5-5.0) g/dL Pituitary panel 11/02/21 Range/Units 04:06 Sodium 136 L (137-145) mmol/L Potassium 3.7 (3.5-5.1) mmol/L Chloride 103 (98-107) mmol/L Carbon Dioxide 29 (22-30) mmol/L BUN 18 H (7-17) mg/dL Creatinine 0.77 (0.52-1.04) mg/dL Glucose 124 H (74-99) mg/dL Calcium 9.7 (8.4-10.2) mg/dL Adrenal panel 11/02/21 Range/Units 04:06 Sodium 136 L (137-145) mmol/L Potassium 3.7 (3.5-5.1) mmol/L Chloride 103 (98-107) mmol/L Carbon Dioxide 29 (22-30) mmol/L BUN 18 H (7-17) mg/dL Creatinine 0.77 (0.52-1.04) mg/dL Glucose 124 H (74-99) mg/dL Calcium 9.7 (8.4-10.2) mg/dL Total Bilirubin 0.4 (0.2-1.3) mg/dL AST 19 (14-36) U/L ALT 14 (4-34) U/L Alkaline Phosphatase 87 (38-126) U/L Total Protein 5.6 L (6.3-8.2) g/dL Albumin 3.2 L (3.5-5.0) g/dL Assessment and Plan Assessment: Status post right colectomy. GI bleed. Patient be observed. If she continues to have any rectal bleeding. She will undergo colonoscopy.
[2021-11-02] MEDS: LOSARTAN 50 MG TAB PO SCH (18:59)
[2021-11-02] MEDS: SOTALOL 80 MG TAB PO SCH (20:48)
[2021-11-02] MEDS: PRAVASTATIN SODIUM 80 MG TAB PO SCH (20:48)
[2021-11-02] MEDS: SENNOSIDES-DOCUSATE SODIUM 1 EACH TAB PO SCH (20:48)
[2021-11-02] MEDS: HYDROcodone/APAP 5-325MG 1 EACH TAB PO PRN (20:48)
[2021-11-02] MEDS ORDERED: POTASSIUM CHLORIDE ER 20 MEQ TAB.ER PO STA (23:11)
[2021-11-02] MEDS ORDERED: Magnesium Replacement Protocol 1 EACH MISC MISCELLANE PRN (23:12)
--- NOTE | 2021-11-02 23:19 | P.CONS ---
History of Present Illness - Reason for Consult Consult date: 11/02/21 Management of Chronic conditions Requesting physician: Sumit Sweet - Chief Complaint Abdominal pain, concern for GI bleed - History of Present Illness This is a 81 year old female who presents to the hospital with concerns for abdominal pain and bright red blood per rectum today. Patient underwent colectomy for colon polyps recently and was discharged on october 30. She reports generalized abdominal pain. No fevers. No chest pain, no shortness of breath. Abdominal/Pelvis CT showing post surgical changes in the right lower quadrant with some low density free fluid. No bowel obstruction. No evidence of ileus. She is admitted under general surgery for evaluation, and will be monitored for further episodes of GI Bleeding. Chronic medical conditions include atrial fi brillation, COPD, Diabetes Mellitus, Hypertension, Hyperlipidemia, Memory impairment, hypothyroid, GERD. She is anticoagulated with xarelto which has been placed on hold at this time. Otherwise she was discharged and instructed to hold hydrochlorothiazide and her sodium is stable today at 136, potassium is 3.7, BUN 18, creat 0.77. Home medications have been resumed, we will replace electrolytes and monitor hemoglobin. PT/OT consultation. REVIEW OF SYSTEMS: CONSTITUTIONAL: Denies fever, Denies fatigue, Denies malaise. HEENT: No recent visual problems or hearing problems. Denied any sore throat. CARDIOVASCULAR: No chest pain, orthopnea, PND, no palpitations, no syncope. PULMONARY: No shortness of breath, no cough, no hemoptysis. GASTROINTESTINAL: Denies nausea vomiting diarrhea Reports abdominal pain, bright red blood per rectum NEUROLOGICAL: No headaches, no weakness, no numbness. HEMATOLOGICAL: Denies any bleeding or petechiae. GENITOURINARY: Denies any burning micturition, frequency, or urgency. MUSCULOSKELETAL/RHEUMATOLOGICAL: Denies any joint pain, swelling, or any muscle pain. ENDOCRINE: Denies any polyuria or polydipsia. The rest of the 14-point review of systems is negative. PHYSICAL EXAMINATION: GENERAL: The patient is alert and oriented x3, in good health. Well developed, well nourished. HEENT: Pupils are round and equally reacting to light. EOMI. No scleral icterus. No conjunctival pallor. Normocephalic, atraumatic. No pharyngeal erythema. No thyromegaly. CARDIOVASCULAR: S1 and S2 present. No murmurs, rubs, or gallops. PULMONARY: Lungs are clear to auscultation, no wheezing, crackles, or rales. ABDOMEN: Soft,tender, nondistended, normoactive bowel sounds. No palpable organomegaly. MUSCULOSKELETAL: No joint swelling or deformity. EXTREMITIES: No cyanosis, clubbing, or pedal edema. NEUROLOGICAL: Gross neurological examination did not reveal any focal deficits. Mild bilateral arm tremoring when arms extended. SKIN: Post surgical abdomen with midline incision Assessment and Plan Assessment Acute GI Bleed rule out, monitor for rectal bleeding and repeat CBC in AM Post op recent colectomy with lysis of adhesions for colonic polyp History of paroxysmal atrial fibrillation anticoagulated with xarelto outpatient which is currently on hold History of COPD not in acute exacerbation Diabetes Mellitus Hypertension Hyperlipidemia History memory impairment History thyroid disorder Gastroesophageal reflux disease GI Prophylaxis Full Code Resume appropriate home medications Continue IV fluids Full liquid diet Follow up AM labs PT/OT for evaluation Thank you kindly for this consultation The impression and plan of care has been dictated by Catherine Yee Nurse Practitioner as directed. Dr. Nadia MD I have performed a history and physical examination and medical decision making of this patient, discussed the same with the dictator, and agree with the dictators assessment and plan as written, documented as a scribe. Based on total visit time, I have performed more than 50% of this visit. Past Medical History Past Medical History: Atrial Fibrillation, COPD, Diabetes Mellitus, GERD/Reflux, Hyperlipidemia, Hypertension, Memory Impairment, Osteoarthritis (OA), Pneumonia, Thyroid Disorder Additional Past Medical History / Comment(s): Right hip infection w/wound vac in Jun.-tx. @[facility]-wound completely healed per son, SHINGLES TO RT FACE/EYE. diet controlled diabetes, osteoporosis, recent blood in stool,. ANEMIA WITH BLOOD TRANSFUSIONS. 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 Past Surgical History: Appendectomy, Heart Catheterization With Stent, Hysterectomy, Joint Replacement, Orthopedic Surgery, Tonsillectomy, Tubal Ligation Additional Past Surgical History / Comment(s): RT HIP REPLACEMENT & multiple surgeries on it due to infection, COLONOSCOPY WITH PARTIAL POLYPECTOMY Past Anesthesia/Blood Transfusion Reactions: No Reported Reaction Date of Last Stent Placement:: 2017 Past Psychological History: Depression Smoking Status: Former smoker Past Alcohol Use History: None Reported Past Drug Use History: None Reported - Past Family History Daughter(s) Family Medical History: Cancer Father History Unknown: Yes Family Medical History: Hypertension Additional Family Medical History / Comment(s): BRAIN TUMOR Mother Family Medical History: Cancer Medications and Allergies Home Medications Medication Instructions Recorded Confirmed Type Levothyroxine Sodium [Synthroid] 150 mcg PO DAILY 09/30/13 11/02/21 History Pravastatin Sodium [Pravachol] 80 mg PO HS 11/07/14 11/02/21 History Multivitamins, Thera [Multivitamin 1 tab PO DAILY 06/01/18 11/02/21 History (formulary)] Sotalol [Betapace] 80 mg PO BID 06/01/18 11/02/21 History Vortioxetine Hydrobromide 10 mg PO DAILY 06/01/18 11/02/21 History [Trintellix] Ferrous Sulfate [Iron (65 MG 325 mg PO DAILY 06/16/18 11/02/21 History Elemental)] amLODIPine [Norvasc] 5 mg PO DAILY 06/16/18 11/02/21 History Aspirin [[place] Aspirin EC] 81 mg PO DAILY 06/28/18 11/02/21 History Losartan/Hydrochlorothiazide 1 tab PO DAILY 08/18/18 11/02/21 History [Losartan-Hctz 100-25 mg Tab] Pantoprazole [Protonix] 40 mg PO AC-BID #60 tablet. 09/16/18 11/02/21 Rx Donepezil [Aricept] 10 mg PO DAILY 06/22/21 11/02/21 History Memantine [Namenda] 10 mg PO DAILY 06/22/21 11/02/21 History Mirabegron [Myrbetriq] 50 mg PO DAILY 06/22/21 11/02/21 History Sennosides-Docusate Sodium 1 tab PO HS 06/22/21 11/02/21 History [Senokot-S] Cyanocobalamin [Vitamin B-12] 500 mcg PO DAILY 07/16/21 11/02/21 History Rivaroxaban [Xarelto] 15 mg PO HS 07/16/21 11/02/21 History HYDROcodone/APAP 5-325MG [[place] 1 tab PO Q6HR PRN 3 Days #12 tab 10/30/21 11/02/21 Rx 5-325] Allergies Allergy/AdvReac Type Severity Reaction Status Date / Time azithromycin Allergy Rash/Hives Verified 11/02/21 12:12 [From Zithromax Z-Chau] codeine Allergy Unknown Verified 11/02/21 12:12 hydrochlorothiazide Allergy Unknown Verified 11/02/21 12:12 [From Dyazide] lincomycin HCl Allergy Unknown Verified 11/02/21 12:12 [From Lincocin] meperidine HCl [From Demerol] Allergy Unknown Verified 11/02/21 12:12 metronidazole [From Flagyl] Allergy Unknown Verified 11/02/21 12:12 Metronidazole HCl Allergy Unknown Verified 11/02/21 12:12 [From Flagyl] Penicillins Allergy Unknown Verified 11/02/21 12:12 [id number] Reductase Allergy Unknown Verified 11/02/21 12:12 Inhibitor Sulfa (Sulfonamide Allergy Unknown Verified 11/02/21 12:12 Antibiotics) tetracycline [Tetracycline] Allergy Unknown Verified 11/02/21 12:12 triamterene [From Dyazide] Allergy Unknown Verified 11/02/21 12:12 watermelon Allergy Swelling Verified 11/02/21 12:12 atorvastatin calcium AdvReac MUSCLE Verified 11/02/21 12:12 [From Lipitor] ACHES rosuvastatin calcium AdvReac MUSCLE Verified 11/02/21 12:12 [From Crestor] ACHES Physical Exam Vitals: Vital Signs Temp Pulse Pulse Resp BP BP Pulse Ox 11/02/21 15:00 98.5 F 71 20 189/66 97 11/02/21 08:27 97.9 F 63 17 180/71 98 11/02/21 07:26 97.5 F L 65 16 138/66 98 11/02/21 04:54 78 16 182/80 96 11/02/21 03:50 97.9 F 69 16 194/80 98 Intake and Output 11/02/21 11/02/21 11/02/21 06:59 14:59 22:59 Intake Total 120 Output Total 500 Balance -380 Intake: Oral 120 Output: Urine 500 Other: Voiding Method Bedside Commode External Catheter # Voids 1 # Bowel Movements 1 Weight 90.265 kg 90.265 kg Results CBC & Chem 7: 11/02/21 04:06 11/02/21 04:06 Labs: Abnormal Lab Results - Last 24 Hours (Table) 11/02/21 11/02/21 Range/Units 04:06 04:06 PT 12.3 H (9.0-12.0) sec INR 1.2 H (<1.2) APTT 33.8 H (22.0-30.0) sec Sodium 136 L (137-145) mmol/L BUN 18 H (7-17) mg/dL Glucose 124 H (74-99) mg/dL Total Protein 5.6 L (6.3-8.2) g/dL Albumin 3.2 L (3.5-5.0) g/dL Assessment and Plan Time with Patient: Less than 30
[2021-11-03] MEDS: MAGNESIUM SULFATE-D5W PMX 1 GM in DEXTROSE/WATER 1 100ML.BAG IVPB SCH ×2 (00:32→00:33)
[2021-11-03] MEDS: LEVOTHYROXINE 75 MCG TAB PO SCH (05:12)
[2021-11-03] MEDS: SODIUM CHLORIDE 0.9% 1,000 ML IV SCH (05:12)
[2021-11-03 08:17] LABS: Glucose,Whole Blood 134 mg/dL (75-99)
[2021-11-03] MEDS: PANTOPRAZOLE 40 MG/10 ML VIAL IV SCH (09:04)
[2021-11-03] MEDS: LOSARTAN 50 MG TAB PO SCH (09:05)
[2021-11-03] MEDS: DONEPEZIL 10 MG TAB PO SCH (09:05)
[2021-11-03] MEDS: amLODIPine 5 MG TAB PO SCH (09:05)
[2021-11-03] MEDS: VORTIOXETINE HYDROBROMIDE 10 MG TABLET PO SCH (09:05)
[2021-11-03] MEDS: MEMANTINE 10 MG TAB PO SCH (09:05)
[2021-11-03] MEDS: SOTALOL 80 MG TAB PO SCH ×2 (09:05→20:43)
[2021-11-03] MEDS: HYDROcodone/APAP 5-325MG 1 EACH TAB PO PRN (09:06)
[2021-11-03 09:21] LABS: Basophils # (A) 0.05 X 10*3/uL (0.00-0.10); Basophils % (A) 0.8 %; Eosinophils # (A) 0.27 X 10*3/uL (0.04-0.35); Eosinophils % (A) 4.2 %; HCT 36.4 % (37.2-46.3); HGB 11.9 g/dL (12.0-15.0); Immature Grans, Automated 0.6 %; Lymphocytes # (A) 1.03 X 10*3/uL (0.90-5.00); MCH 29.7 pg (27.0-32.0); MCHC 32.7 g/dL (32.0-37.0); MCV 90.8 fL (80.0-97.0); Mean Platelet Volume 11.8 fL (9.5-12.2); Monocytes # (A) 0.75 X 10*3/uL (0.20-1.00); Monocytes % (A) 11.7 %; NRBC Per 100 WBC 0 /100 WBCS (0.0-0.0); Neutrophils # (A) 4.28 X 10*3/uL (1.80-7.70); Neutrophils % (A) 66.7 %; Platelet Count 232 X 10*3/uL (140-440); RBC 4.01 X 10*6/uL (4.10-5.20); RDW 12.7 % (11.5-14.5); WBC 6.42 X 10*3/uL (4.50-10.00)
[2021-11-03 10:11] LABS: African American GFR (CKD) 97.8 (60.0-200.0); Anion Gap 9.9 mmol/L (10.00-18.00); BUN/Creat Ratio 13.82 Ratio (12.00-20.00); Blood Urea Nitrogen 8.6 mg/dL (9.0-27.0); Calcium 9.6 mg/dL (8.7-10.3); Carbon Dioxide 26.9 mmol/L (20.0-27.5); Non-African American GFR(CKD) 84.3 (60.0-200.0); Potassium 3.7 mmol/L (3.5-5.5)
[2021-11-03 11:50] LABS: Glucose,Whole Blood 121 mg/dL (75-99)
--- NOTE | 2021-11-03 12:14 | P.PN ---
Progress Note - Text Progress Note Date: 11/03/21 As well. She's had no further GI bleed. On exam vital signs are stable. Abdomen soft. Patient most likely had some old blood in her colon that was seen when she had a bowel movement. There is no evidence of any significant GI bleed. Her hemoglobin was 11.9. She'll be followed.
--- NOTE | 2021-11-03 16:47 | P.PN ---
Subjective Progress Note Date: 11/03/21 This is a 81 year old female who presents to the hospital with concerns for abdominal pain and bright red blood per rectum today. Patient underwent colectomy for colon polyps recently and was discharged on october 30. She reports generalized abdominal pain. No fevers. No chest pain, no shortness of breath. A bdominal/Pelvis CT showing post surgical changes in the right lower quadrant with some low density free fluid. No bowel obstruction. No evidence of ileus. She is admitted under general surgery for evaluation, and will be monitored for further episodes of GI Bleeding. Chronic medical conditions include atrial fibrillation, COPD, Diabetes Mellitus, Hypertension, Hyperlipidemia, Memory impairment, hypothyroid, GERD. She is anticoagulated with xarelto which has been placed on hold at this time. Otherwise she was discharged and instructed to hold hydrochlorothiazide and her sodium is stable today at 136, potassium is 3.7, BUN 18, creat 0.77. Home medications have been resumed, we will replace electrolytes and monitor hemoglobin. PT/OT consultation. 11/03/2021 Patient evaluated today resting in bed. She has baseline dementia and home medications have been resumed. She reports abdominal pain and discomfort and tender to palpation. Bowel sounds are normoactive and she is having bowel movements. Per staff at bedside no reports of rectal bleeding. She denies nausea. No shortness of breath, no chest pain. Labs today showing white count 6.42, hgb 11.9. Sodium has improved to 141, potassium 3.7, BUN 8.6, creatinine 0.6. Her blood glucose is stable. Blood pressure is elevated today 170/70s. We will increase her losartan. Surgery will monitor patient, does not feel there is any acute GI bleed. She will also see PT/OT tomorrow. Review of Systems Constitutional: Denied any fatigue denied any fever. Cardio vascular: denied any chest pain, palpitations Gastrointestinal: denied any nausea, vomiting, diarrhea Reports incisional abominal pain Pulmonary: Denied any shortness of breath cough Neurologic denied any new focal deficits All inpatient medications were reviewed and appropriate changes in these medications as dictated in the interval history and assessment and plan. PHYSICAL EXAMINATION: GENERAL: The patient is alert and oriented x3, in good health. Well developed, well nourished. HEENT: Pupils are round and equally reacting to light. EOMI. No scleral icterus. No conjunctival pallor. Normocephalic, atraumatic. No pharyngeal erythema. No thyromegaly. CARDIOVASCULAR: S1 and S2 present. No murmurs, rubs, or gallops. PULMONARY: Lungs are clear to auscultation, no wheezing, crackles, or rales. ABDOMEN: Soft, tender, nondistended, normoactive bowel sounds. No palpable organomegaly. MUSCULOSKELETAL: No joint swelling or deformity. EXTREMITIES: No cyanosis, clubbing, or pedal edema. NEUROLOGICAL: Gross neurological examination did not reveal any focal deficits. Mild bilateral arm tremoring when arms extended. SKIN: Post surgical abdomen with midline incision Assessment and Plan Assessment Episode of GI bleed, most likely old blood in colon from surgery per surgery Post op recent colectomy with lysis of adhesions for colonic polyp History of paroxysmal atrial fibrillation anticoagulated with xarelto outpatient which is currently on hold History of COPD not in acute exacerbation Diabetes Mellitus Hypertension Hyperlipidemia History memory impairment History thyroid disorder Gastroesophageal reflux disease GI Prophylaxis Full Code Resume appropriate home medications Diet advanced to regular Follow up AM labs PT/OT for evaluation Thank you kindly for this consultation The impression and plan of care has been dictated by Catherine Yee, Nurse Practitioner as directed. Dr. Nadia MD I have performed a history and physical examination and medical decision making of this patient, discussed the same with the dictator, and agree with the dictators assessment and plan as written, documented as a scribe. Based on total visit time, I have performed more than 50% of this visit. Objective - Vital Signs Vital signs: Vital Signs Temp 98.4 F 11/03/21 07:00 Pulse 70 11/03/21 08:00 Resp 18 11/03/21 08:00 BP 173/70 11/03/21 07:00 Pulse Ox 95 11/03/21 07:00 FiO2 Intake & Output 11/02/21 11/03/21 11/03/21 18:59 06:59 18:59 Intake Total 240 Output Total 1000 Balance -760 Weight 90.265 kg Intake: Oral 240 Output: Urine 1000 Other: Voiding Method Bedside Commode Bedside Commode Bedside Commode External Catheter Diaper Diaper Incontinent Incontinent External Catheter External Catheter # Voids 1 1 # Bowel Movements 1 1 - Labs CBC & Chem 7: 11/03/21 06:27 11/03/21 06:27 Labs: Abnormal Lab Results - Last 24 Hours (Table) 11/03/21 11/03/21 11/03/21 Range/Units 06:27 06:27 08:05 RBC 4.01 L (4.10-5.20) X 10*6/uL Hgb 11.9 L (12.0-15.0) g/dL Hct 36.4 L (37.2-46.3) % Anion Gap 9.90 L (10.00-18.00) mmol/L BUN 8.6 L (9.0-27.0) mg/dL Glucose 119 H (70-110) mg/dL POC Glucose (mg/dL) 134 H (75-99) mg/dL Assessment and Plan Time with Patient: Less than 30
[2021-11-03 16:57] LABS: Glucose,Whole Blood 117 mg/dL (75-99)
[2021-11-03 20:18] LABS: Glucose,Whole Blood 102 mg/dL (75-99)
[2021-11-03] MEDS: PRAVASTATIN SODIUM 80 MG TAB PO SCH (20:43)
[2021-11-03] MEDS: SENNOSIDES-DOCUSATE SODIUM 1 EACH TAB PO SCH (20:43)
[2021-11-04] MEDS: SODIUM CHLORIDE 0.9% 1,000 ML IV SCH (05:31)
[2021-11-04] MEDS: LEVOTHYROXINE 75 MCG TAB PO SCH (05:42)
[2021-11-04 07:08] LABS: Glucose,Whole Blood 124 mg/dL (75-99)
[2021-11-04] MEDS ORDERED: LOSARTAN-HCTZ 50-12.5 MG 1 EACH TAB PO SCH (09:00)
[2021-11-04] MEDS: amLODIPine 5 MG TAB PO SCH (09:22)
[2021-11-04] MEDS: MEMANTINE 10 MG TAB PO SCH (09:22)
[2021-11-04] MEDS: SOTALOL 80 MG TAB PO SCH (09:22)
[2021-11-04] MEDS: DONEPEZIL 10 MG TAB PO SCH (09:22)
[2021-11-04] MEDS: VORTIOXETINE HYDROBROMIDE 10 MG TABLET PO SCH (09:22)
[2021-11-04 10:29] LABS: Basophils # (A) 0.1 k/uL (0-0.2); Basophils % (A) 1 %; Eosinophils # (A) 0.3 k/uL (0-0.7); Eosinophils % (A) 3 %; HCT 38.4 % (34.0-46.0); HGB 12.4 gm/dL (11.4-16.0); Lymphocytes # (A) 1.1 k/uL (1.0-4.8); Lymphocytes % (A) 14 %; MCH 30.1 pg (25.0-35.0); MCHC 32.2 g/dL (31.0-37.0); MCV 93.4 fL (80.0-100.0); Monocytes # (A) 0.6 k/uL (0-1.0); Monocytes % (A) 7 %; Neutrophils # (A) 5.8 k/uL (1.3-7.7); Neutrophils % (A) 74 %; Platelet Count 282 k/uL (150-450); RBC 4.12 m/uL (3.80-5.40); RDW 12.8 % (11.5-15.5); WBC 7.9 k/uL (3.8-10.6)
[2021-11-04 10:55] LABS: African American GFR (CKD) 79 (>60 ml/min/1.73 sqM); Anion Gap 5 mmol/L; Blood Urea Nitrogen 17 mg/dL (7-17); Calcium 9.8 mg/dL (8.4-10.2); Carbon Dioxide 28 mmol/L (22-30); Chloride 105 mmol/L (98-107); Glucose 119 mg/dL (74-99); Non-African American GFR(CKD) 69 (>60 ml/min/1.73 sqM); Potassium 4.2 mmol/L (3.5-5.1); Sodium 138 mmol/L (137-145)
[2021-11-04 11:55] LABS: Glucose,Whole Blood 112 mg/dL (75-99)
[2021-11-04] MEDS: PANTOPRAZOLE 40 MG/10 ML VIAL IV SCH (12:49)
[2021-11-04] MEDS ORDERED: PANTOPRAZOLE 40 MG TABLET PO STA (12:50)
[2021-11-04 13:41] VITALS: BP 147/65; PULSE 66; RESP 16; TEMP 98
--- NOTE | 2021-11-04 13:50 | P.PN ---
Subjective Progress Note Date: 11/04/21 This is a 81 year old female who presents to the hospital with concerns for abdominal pain and bright red blood per rectum today. Patient underwent colectomy for colon polyps recently and was discharged on october 30. She reports generalized abdominal pain. No fevers. No chest pain, no shortness of breath. A bdominal/Pelvis CT showing post surgical changes in the right lower quadrant with some low density free fluid. No bowel obstruction. No evidence of ileus. She is admitted under general surgery for evaluation, and will be monitored for further episodes of GI Bleeding. Chronic medical conditions include atrial fibrillation, COPD, Diabetes Mellitus, Hypertension, Hyperlipidemia, Memory impairment, hypothyroid, GERD. She is anticoagulated with xarelto which has been placed on hold at this time. Otherwise she was discharged and instructed to hold hydrochlorothiazide and her sodium is stable today at 136, potassium is 3.7, BUN 18, creat 0.77. Home medications have been resumed, we will replace electrolytes and monitor hemoglobin. PT/OT consultation. 11/03/2021 Patient evaluated today resting in bed. She has baseline dementia and home medications have been resumed. She reports abdominal pain and discomfort and tender to palpation. Bowel sounds are normoactive and she is having bowel movements. Per staff at bedside no reports of rectal bleeding. She denies nausea. No shortness of breath, no chest pain. Labs today showing white count 6.42, hgb 11.9. Sodium has improved to 141, potassium 3.7, BUN 8.6, creatinine 0.6. Her blood glucose is stable. Blood pressure is elevated today 170/70s. We will increase her losartan. Surgery will monitor patient, does not feel there is any acute GI bleed. She will also see PT/OT tomorrow. 11/04/2021 Patient evaluated today sitting up in her chair with son at the bedside. She has been evaluated by general surgery and has been discharged. He has had soft brown BM yesterday, no signs of active GI bleeding. Her labs today are unremarkable, white count 7.9, hgb 12.4, platelet count 282. Her metabolic panel showing sodium 138, potassium 4.2, BUN 17, creatinine 0.81. Blood glucose has been stable. She does have some abdominal tenderness she is postoperative right colectomy from previous hospital stay. she has abdominal binder in place. She is tolerating diet. She is afebrile, heart rate 66, blood pressure 147/65, 94% on room air. She needs to continue with incentive spirometer outpatient. Cleared medically for discharge. PT has evaluated patient and did recommend home with homecare only if patient has 24/7 assistance, Subacute rehab was offered to family however son states he would like to bring patient home and does not want her to go to rehab. She does have history of dementia and probably will do better in familiar environment. He also states the norco made her confused, states she has been getting tylenol at home for pain. Review of Systems Constitutional: Denied any fatigue denied any fever. Cardio vascular: denied any chest pain, palpitations Gastrointestinal: denied any nausea, vomiting, diarrhea, reports improved abdom inal pain today. Pulmonary: Denied any shortness of breath cough Neurologic denied any new focal deficits All inpatient medications were reviewed and appropriate changes in these medications as dictated in the interval history and assessment and plan. PHYSICAL EXAMINATION: GENERAL: The patient is alert and oriented x3, in good health. Well developed, well nourished. HEENT: Pupils are round and equally reacting to light. EOMI. No scleral icterus. No conjunctival pallor. Normocephalic, atraumatic. No pharyngeal erythema. No thyromegaly. CARDIOVASCULAR: S1 and S2 present. No murmurs, rubs, or gallops. PULMONARY: Lungs are clear to auscultation, no wheezing, crackles, or rales. ABDOMEN: Soft, tender, nondistended, normoactive bowel sounds. No palpable org anomegaly. MUSCULOSKELETAL: No joint swelling or deformity. EXTREMITIES: No cyanosis, clubbing, or pedal edema. NEUROLOGICAL: Gross neurological examination did not reveal any focal deficits. Mild bilateral arm tremoring when arms extended. SKIN: Post surgical abdomen with midline incision Assessment and Plan Assessment Episode of GI bleed x1, most likely old blood in colon from surgery per surgery Post op recent colectomy with lysis of adhesions for colonic polyp History of paroxysmal atrial fibrillation anticoagulated with xarelto outpatient which has been resumed History of COPD not in acute exacerbation Diabetes Mellitus Hypertension Hyperlipidemia History memory impairment History thyroid disorder Gastroesophageal reflux disease GI Prophylaxis Full Code Resume appropriate home medications Diet advanced to regular PT/OT for evaluation home with home care vs. subacute rehab Xarelto has been resumed and will repeat CBC outpatient Thank you kindly for this consultation Cleared medically for discharge The impression and plan of care has been dictated by Catherine Yee, Nurse Practitioner as directed. Dr. Nadia MD I have performed a history and physical examination and medical decision making of this patient, discussed the same with the dictator, and agree with the dictators assessment and plan as written, documented as a scribe. Based on total visit time, I have performed more than 50% of this visit. Objective - Vital Signs Vital signs: Vital Signs Temp 98 F 11/04/21 13:41 Pulse 66 11/04/21 13:41 Resp 16 11/04/21 13:41 BP 147/65 11/04/21 13:41 Pulse Ox 94 L 11/04/21 13:41 FiO2 Intake & Output 11/03/21 11/04/21 11/04/21 18:59 06:59 18:59 Intake Total 118 118 Balance 118 118 Intake: Oral 118 118 Other: Voiding Method Bedside Commode Bedside Commode External Catheter Diaper Diaper Incontinent Incontinent External Catheter External Catheter # Voids 0 1 - Labs CBC & Chem 7: 11/04/21 09:49 11/04/21 09:49 Labs: Abnormal Lab Results - Last 24 Hours (Table) 11/03/21 11/03/21 11/04/21 Range/Units 16:55 20:17 07:06 Glucose (74-99) mg/dL POC Glucose (mg/dL) 117 H 102 H 124 H (75-99) mg/dL 11/04/21 11/04/21 Range/Units 09:49 11:53 Glucose 119 H (74-99) mg/dL POC Glucose (mg/dL) 112 H (75-99) mg/dL Assessment and Plan Time with Patient: Less than 30
[2021-11-04] MEDS ORDERED: RIVAROXABAN 15 MG TAB PO SCH (21:00)
== END 2021-11-04 14:00 | disposition home or self-care (01) ==
LOC: EC 03:40 → 6NMEDSUR 06:44
PROVIDERS: ADMIT Surgery; ATTEND Surgery
DX: L76.22 Postprocedural hemorrhage of skin and subcutaneous tissue following other procedure (principal); J44.9 Chronic obstructive pulmonary disease, unspecified; E11.9 Type 2 diabetes mellitus without complications; I10 Essential (primary) hypertension; E78.5 Hyperlipidemia, unspecified; E03.9 Hypothyroidism, unspecified; I25.2 Old myocardial infarction; I48.0 Paroxysmal atrial fibrillation; K21.9 Gastro-esophageal reflux disease without esophagitis; F03.90 Unspecified dementia, unspecified severity, without behavioral disturbance, psychotic disturbance, mood disturbance, and anxiety; F32.A Depression, unspecified; M81.0 Age-related osteoporosis without current pathological fracture; M19.90 Unspecified osteoarthritis, unspecified site; D64.9 Anemia, unspecified; E66.9 Obesity, unspecified; Z68.34 Body mass index [BMI] 34.0-34.9, adult; Z79.899 Other long term (current) drug therapy; Z91.018 Allergy to other foods; Z88.2 Allergy status to sulfonamides; Z88.5 Allergy status to narcotic agent; Z88.6 Allergy status to analgesic agent; Z88.1 Allergy status to other antibiotic agents; Z88.8 Allergy status to other drugs, medicaments and biological substances; Z86.010 Personal history of colon polyps; Z79.01 Long term (current) use of anticoagulants; Z79.82 Long term (current) use of aspirin; Z79.890 Hormone replacement therapy; Z87.19 Personal history of other diseases of the digestive system; Z87.891 Personal history of nicotine dependence; Z90.710 Acquired absence of both cervix and uterus; Z16.24 Resistance to multiple antibiotics; Z87.01 Personal history of pneumonia (recurrent); Z96.641 Presence of right artificial hip joint; Z90.49 Acquired absence of other specified parts of digestive tract; Z86.14 Personal history of Methicillin resistant Staphylococcus aureus infection; Z82.49 Family history of ischemic heart disease and other diseases of the circulatory system; Z80.8 Family history of malignant neoplasm of other organs or systems
CPT/HCPCS: 99285; 96376; 96375; 96365; 36415; 97162; 97167; 80053; 80048 ×2; 83735 ×2; 84100; 85025 ×3; 85610; 85730; 74177; G0378 ×3; J0131; C9113 ×2; Q9967

== ENCOUNTER 2021-12-07 17:41 | Emergency (ER) | payer MEDICARE, BC ==
[2021-12-07 17:56] VITALS: PULSE 68; RESP 18
--- NOTE | 2021-12-07 18:48 | ED ---
General Adult HPI - General Chief complaint: Skin/Abscess/Foreign Body Stated complaint: Hand pain Time Seen by Provider: 12/07/21 18:38 Source: patient, family (son), RN notes reviewed, old records reviewed Mode of arrival: ambulatory Limitations: no limitations - History of Present Illness Initial comments: 81-year-old female presents to the emergency room with her son complaining of left hand swelling and bruising. Son states she does have dementia and just noticed it today. Son states 2 weeks ago she did have an IV in that hand. She has full range of motion, no pain with movement. -: days(s) (1) Location: left, upper extremity (dorsal surface hand) Radiation: non-radiation Severity scale (1-10): 0 Consistency: now resolved Improves with: immobilization Worsens with: other (palpation) Associated Symptoms: denies other symptoms Treatments Prior to Arrival: none - Related Data Home Medications Medication Instructions Recorded Confirmed Levothyroxine Sodium [Synthroid] 150 mcg PO DAILY 09/30/13 11/02/21 Pravastatin Sodium [Pravachol] 80 mg PO HS 11/07/14 11/02/21 Multivitamins, Thera [Multivitamin 1 tab PO DAILY 06/01/18 11/02/21 (formulary)] Sotalol [Betapace] 80 mg PO BID 06/01/18 11/02/21 Vortioxetine Hydrobromide 10 mg PO DAILY 06/01/18 11/02/21 [Trintellix] Ferrous Sulfate [Iron (65 MG 325 mg PO DAILY 06/16/18 11/02/21 Elemental)] amLODIPine [Norvasc] 5 mg PO DAILY 06/16/18 11/02/21 Aspirin [[place] Aspirin EC] 81 mg PO DAILY 06/28/18 11/02/21 Losartan/Hydrochlorothiazide 1 tab PO DAILY 08/18/18 11/02/21 [Losartan-Hctz 100-25 mg Tab] Donepezil [Aricept] 10 mg PO DAILY 06/22/21 11/02/21 Memantine [Namenda] 10 mg PO DAILY 06/22/21 11/02/21 Mirabegron [Myrbetriq] 50 mg PO DAILY 06/22/21 11/02/21 Sennosides-Docusate Sodium 1 tab PO HS 06/22/21 11/02/21 [Senokot-S] Cyanocobalamin [Vitamin B-12] 500 mcg PO DAILY 07/16/21 11/02/21 Rivaroxaban [Xarelto] 15 mg PO HS 07/16/21 11/02/21 Previous Rx's Medication Instructions Recorded Pantoprazole [Protonix] 40 mg PO AC-BID #60 tablet. 09/16/18 HYDROcodone/APAP 5-325MG [[place] 1 tab PO Q6HR PRN 3 Days #12 tab 10/30/21 5-325] Allergies Allergy/AdvReac Type Severity Reaction Status Date / Time azithromycin Allergy Rash/Hives Verified 12/07/21 17:56 [From Zithromax Z-Chau] codeine Allergy Unknown Verified 12/07/21 17:56 hydrochlorothiazide Allergy Unknown Verified 12/07/21 17:56 [From Dyazide] lincomycin HCl Allergy Unknown Verified 12/07/21 17:56 [From Lincocin] meperidine HCl [From Demerol] Allergy Unknown Verified 12/07/21 17:56 metronidazole [From Flagyl] Allergy Unknown Verified 12/07/21 17:56 Metronidazole HCl Allergy Unknown Verified 12/07/21 17:56 [From Flagyl] Penicillins Allergy Unknown Verified 12/07/21 17:56 Bfkgnie-BRQ-ErV Reductase Allergy Unknown Verified 12/07/21 17:56 Inhibitor Sulfa (Sulfonamide Allergy Unknown Verified 12/07/21 17:56 Antibiotics) tetracycline [Tetracycline] Allergy Unknown Verified 12/07/21 17:56 triamterene [From Dyazide] Allergy Unknown Verified 12/07/21 17:56 watermelon Allergy Swelling Verified 12/07/21 17:56 atorvastatin calcium AdvReac MUSCLE Verified 12/07/21 17:56 [From Lipitor] ACHES rosuvastatin calcium AdvReac MUSCLE Verified 12/07/21 17:56 [From Crestor] ACHES Review of Systems ROS Statement: Those systems with pertinent positive or pertinent negative responses have been documented in the HPI. ROS Other: All systems not noted in ROS Statement are negative. Past Medical History Past Medical History: Atrial Fibrillation, COPD, Diabetes Mellitus, GERD/Reflux, Hyperlipidemia, Hypertension, Memory Impairment, Osteoarthritis (OA), Pneumonia, Thyroid Disorder Additional Past Medical History / Comment(s): Right hip infection w/wound vac in Jun.-tx. @[facility]-wound completely healed per son, SHINGLES TO RT FACE/EYE. diet controlled diabetes, osteoporosis, recent blood in stool,. ANEMIA WITH BLOOD TRANSFUSIONS. 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 Past Anesthesia/Blood Transfusion Reactions: No Reported Reaction Date of Last Stent Placement:: 2017 Past Psychological History: Depression Smoking Status: Former smoker Past Alcohol Use History: None Reported Past Drug Use History: None Reported - Past Family History Daughter(s) Family Medical History: Cancer Father History Unknown: Yes Family Medical History: Hypertension Additional Family Medical History / Comment(s): BRAIN TUMOR Mother Family Medical History: Cancer General Exam Limitations: no limitations General appearance: alert, in no apparent distress Head exam: Present: atraumatic Neck exam: Absent: tenderness, meningismus Respiratory exam: Absent: respiratory distress, accessory muscle use Cardiovascular Exam: Present: regular rate Left Hand Wrist exam: Present: full ROM, tenderness (Dorsal surface), swelling, ecchymosis. Absent: laceration, deformity, crepitus, dislocation, erythema Neuro motor exam: Present: wrist extension intact, thumb opposition intact, fingers 2-5 abduction intact Neurosensory exam: Present: radial nerve intact, ulnar nerve intact, median nerve intact Vascular: Present: normal capillary refill, radial pulse. Absent: vascular compromise Neurological exam: Present: alert Psychiatric exam: Present: normal affect, normal mood Skin exam: Present: warm, dry, normal color. Absent: cyanosis, diaphoretic Course Vital Signs 12/07/21 12/07/21 17:53 19:02 Temperature 98.3 F 98.9 F Pulse Rate 68 68 Respiratory 18 18 Rate Blood Pressure 122/52 131/73 O2 Sat by Pulse 94 L Oximetry Medical Decision Making - Medical Decision Making Patient presents with a hematoma to the dorsal surface of her left hand. Son states that she did have an IV in that hand 2 weeks ago. She just noticed swelling and bruising today. She has full range of motion. She is neurovascularly intact. This appears to be hematoma with surrounding bruising. She was given an David wrap and directed to elevate follow up with primary care doctor next week as needed. Return to the emergency room with any new or concerning symptoms including numbness tingling or pain. Patient and son agreeable to this plan of care. Case discussed with Dr. Russ Wang Clinical Impression: Spontaneous hematoma of hand Disposition: HOME SELF-CARE Condition: Good Additional Instructions: This is a hematoma to your left hand, likely caused by your recent IV and use of blood thinners. Elevate and and wear David wrap for compression. Follow-up with primary care doctor next week for reevaluation. Return to the emergency room with any new or concerning symptoms including increased pain, numbness or pallor. Is patient prescribed a controlled substance at d/c from ED?: No Referrals: Maryann Craig DO [Primary Care Provider] - 1-2 days Time of Disposition: 18:46
[2021-12-07 19:10] VITALS: BP 131/73; TEMP 98.9
== END 2021-12-07 19:03 | disposition home or self-care (01) ==
LOC: EC 17:41
DX: M79.81 Nontraumatic hematoma of soft tissue (principal); J44.9 Chronic obstructive pulmonary disease, unspecified; E11.9 Type 2 diabetes mellitus without complications; K21.9 Gastro-esophageal reflux disease without esophagitis; E78.5 Hyperlipidemia, unspecified; I10 Essential (primary) hypertension; M19.90 Unspecified osteoarthritis, unspecified site; E07.9 Disorder of thyroid, unspecified; F32.A Depression, unspecified; Z87.891 Personal history of nicotine dependence; Z88.1 Allergy status to other antibiotic agents; Z88.5 Allergy status to narcotic agent; Z88.2 Allergy status to sulfonamides; Z88.0 Allergy status to penicillin; Z88.8 Allergy status to other drugs, medicaments and biological substances; Z91.018 Allergy to other foods; Z79.899 Other long term (current) drug therapy
CPT/HCPCS: 99283

== ENCOUNTER 2021-12-09 23:38 | Emergency (ER) | payer MEDICARE, BC ==
[2021-12-09 23:48] VITALS: BP 139/62; PULSE 63; RESP 22; TEMP 98.6
[2021-12-10] MEDS ORDERED: KETOROLAC 15 MG/ML 1 ML VIAL IM STA (00:25)
--- NOTE | 2021-12-10 00:34 | ED ---
Skin/Abscess/FB HPI - General Chief complaint: Skin/Abscess/Foreign Body Stated complaint: Left hand Hematoma Time Seen by Provider: 12/10/21 00:21 Source: patient, family (son), RN notes reviewed, old records reviewed Mode of arrival: ambulatory Limitations: no limitations - History of Present Illness Initial comments: 81-year-old female presents to the emergency room, a repeat visit for left hand bruising. I examined the patient 2 days ago for the same bruising to the left hand. At that time her son stated that she did have an IV in that hand when she was admitted to the hospital earlier in the month. She denies any falls or injuries. She was given an David wrap and directed to elevate at home. I explained at that time that this bruising will take time to resolve as she is on Xarelto. She states that the bruising is now around the wrist and fingers and is more painful. She also states she developed pain with urination today. MD complaint: other (bruising left hand) -: days(s) (3) Location: L hand Associated symptoms: other (dysuria) - Related Data Home Medications Medication Instructions Recorded Confirmed Levothyroxine Sodium [Synthroid] 150 mcg PO DAILY 09/30/13 11/02/21 Pravastatin Sodium [Pravachol] 80 mg PO HS 11/07/14 11/02/21 Multivitamins, Thera [Multivitamin 1 tab PO DAILY 06/01/18 11/02/21 (formulary)] Sotalol [Betapace] 80 mg PO BID 06/01/18 11/02/21 Vortioxetine Hydrobromide 10 mg PO DAILY 06/01/18 11/02/21 [Trintellix] Ferrous Sulfate [Iron (65 MG 325 mg PO DAILY 06/16/18 11/02/21 Elemental)] amLODIPine [Norvasc] 5 mg PO DAILY 06/16/18 11/02/21 Aspirin [[place] Aspirin EC] 81 mg PO DAILY 06/28/18 11/02/21 Losartan/Hydrochlorothiazide 1 tab PO DAILY 08/18/18 11/02/21 [Losartan-Hctz 100-25 mg Tab] Donepezil [Aricept] 10 mg PO DAILY 06/22/21 11/02/21 Memantine [Namenda] 10 mg PO DAILY 06/22/21 11/02/21 Mirabegron [Myrbetriq] 50 mg PO DAILY 06/22/21 11/02/21 Sennosides-Docusate Sodium 1 tab PO HS 06/22/21 11/02/21 [Senokot-S] Cyanocobalamin [Vitamin B-12] 500 mcg PO DAILY 07/16/21 11/02/21 Rivaroxaban [Xarelto] 15 mg PO HS 07/16/21 11/02/21 Previous Rx's Medication Instructions Recorded Pantoprazole [Protonix] 40 mg PO AC-BID #60 tablet. 09/16/18 HYDROcodone/APAP 5-325MG [[place] 1 tab PO Q6HR PRN 3 Days #12 tab 10/30/21 5-325] Nitrofurantoin Monohyd/M-Cryst 100 mg PO Q12HR 5 Days #10 cap 12/10/21 [Macrobid] Allergies Allergy/AdvReac Type Severity Reaction Status Date / Time azithromycin Allergy Rash/Hives Verified 12/09/21 23:48 [From Zithromax Z-Chau] codeine Allergy Unknown Verified 12/09/21 23:48 hydrochlorothiazide Allergy Unknown Verified 12/09/21 23:48 [From Dyazide] lincomycin HCl Allergy Unknown Verified 12/09/21 23:48 [From Lincocin] meperidine HCl [From Demerol] Allergy Unknown Verified 12/09/21 23:48 metronidazole [From Flagyl] Allergy Unknown Verified 12/09/21 23:48 Metronidazole HCl Allergy Unknown Verified 12/09/21 23:48 [From Flagyl] Penicillins Allergy Unknown Verified 12/09/21 23:48 [place]-ENI-SoQ Reductase Allergy Unknown Verified 12/09/21 23:48 Inhibitor Sulfa (Sulfonamide Allergy Unknown Verified 12/09/21 23:48 Antibiotics) tetracycline [Tetracycline] Allergy Unknown Verified 12/09/21 23:48 triamterene [From Dyazide] Allergy Unknown Verified 12/09/21 23:48 watermelon Allergy Swelling Verified 12/09/21 23:48 atorvastatin calcium AdvReac MUSCLE Verified 12/09/21 23:48 [From Lipitor] ACHES rosuvastatin calcium AdvReac MUSCLE Verified 12/09/21 23:48 [From Crestor] ACHES Review of Systems ROS Statement: Those systems with pertinent positive or pertinent negative responses have been documented in the HPI. ROS Other: All systems not noted in ROS Statement are negative. Past Medical History Past Medical History: Atrial Fibrillation, COPD, Diabetes Mellitus, GERD/Reflux, Hyperlipidemia, Hypertension, Memory Impairment, Osteoarthritis (OA), Pneumonia, Thyroid Disorder Additional Past Medical History / Comment(s): Right hip infection w/wound vac in Jun.-tx. @[facility]-wound completely healed per son, SHINGLES TO RT FACE/EYE. diet controlled diabetes, osteoporosis, recent blood in stool,. ANEMIA WITH BLOOD TRANSFUSIONS. 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 Past Anesthesia/Blood Transfusion Reactions: No Reported Reaction Date of Last Stent Placement:: 2017 Past Psychological History: Depression Smoking Status: Former smoker Past Alcohol Use History: None Reported Past Drug Use History: None Reported - Past Family History Daughter(s) Family Medical History: Cancer Father History Unknown: Yes Family Medical History: Hypertension Additional Family Medical History / Comment(s): BRAIN TUMOR Mother Family Medical History: Cancer General Exam Limitations: no limitations General appearance: alert, in no apparent distress Head exam: Present: atraumatic Eye exam: Absent: scleral icterus, conjunctival injection Respiratory exam: Absent: respiratory distress, accessory muscle use Cardiovascular Exam: Present: regular rate GI/Abdominal exam: Present: soft. Absent: tenderness Left Hand Wrist exam: Present: tenderness, swelling, ecchymosis Neurosensory exam: Present: radial nerve intact, ulnar nerve intact, median nerve intact Vascular: Present: normal capillary refill, radial pulse. Absent: vascular compromise Neurological exam: Present: alert, oriented X3 Psychiatric exam: Present: normal affect, normal mood Skin exam: Present: dry. Absent: cyanosis, diaphoretic, pallor Course Vital Signs 12/09/21 23:41 Temperature 98.6 F Pulse Rate 63 Respiratory 22 Rate Blood Pressure 139/62 O2 Sat by Pulse 97 Oximetry Medical Decision Making - Medical Decision Making Patient presents, return visit for hematoma to the left hand with bruising to wrist. She is on Xeralto for atrial fibrillation. She denies any trauma. She denies any abnormal bleeding. X-ray of the left hand shows narrowing and spurring of the first carpometacarpal joint. Distal radius and ulna are intact. There is soft tissue swelling of the dorsum of the hand with osteoarthritis. No fractures seen. She was reassured that there is no fracture and it may take a couple weeks for the bruising to completely resolve. She also states that she developed dysuria today. Urinalysis shows few bacteria with 91 white blood cells. She'll be treated for a urinary tract infection with Macrobid as patient has ALLERGIES to penicillin and sulfa medications. She was directed to follow-up with her primary care doctor this week. Son states they have an appointment today with the primary care doctor. Vital signs are stable. Son and patient are agreeable to this plan of care. - Lab Data Lab Results 12/10/21 Range/Units 02:05 Urine Color Yellow Urine Appearance Cloudy H (Clear) Urine pH 5.5 (5.0-8.0) Ur Specific [place] 1.035 (1.001-1.035) Urine Protein Trace H (Negative) Urine Glucose (UA) Negative (Negative) Urine Ketones Negative (Negative) Urine Blood Negative (Negative) Urine Nitrite Negative (Negative) Urine Bilirubin Negative (Negative) Urine Urobilinogen 2.0 (<2.0) mg/dL Ur Leukocyte Esterase Large H (Negative) Urine RBC 3 (0-5) /hpf Urine WBC 91 H (0-5) /hpf Ur Squamous Epith Cells 5 H (0-4) /hpf Urine Bacteria Few H (None) /hpf Hyaline Casts 3 H (0-2) /lpf Urine Mucus Moderate H (None) /hpf Disposition Clinical Impression: Left hand pain, UTI (urinary tract infection) Disposition: HOME SELF-CARE Condition: Good Instructions (If sedation given, give patient instructions): Urinary Tract Infection in Women (ED), Hematoma (ED) Additional Instructions: Take antibiotic as prescribed for urinary tract infection and follow-up with the primary care doctor this week. Continue to use the David wrap as provided and allow a couple weeks for the bruising to completely resolve. Return to the emergency room with any new or concerning symptoms including fever or persistent nausea vomiting. Prescriptions: Nitrofurantoin Monohyd/M-Cryst [Macrobid] 100 mg PO Q12HR 5 Days #10 cap Is patient prescribed a controlled substance at d/c from ED?: No Referrals: Maryann Craig DO [Primary Care Provider] - 1-2 days Time of Disposition: 02:57
--- NOTE | 2021-12-10 01:08 | XR ---
EXAMINATION TYPE: XR hand complete LT DATE OF EXAM: 12/10/2021 COMPARISON: NONE HISTORY: Pain TECHNIQUE: 3 views FINDINGS: There is narrowing and spurring at the first carpometacarpal joint. The fingers are intact. There is some narrowing of the first MP joint space. Distal radius and ulna a ppear intact. There is soft tissue swelling on the dorsum of the hand. IMPRESSION: There is some osteoarthritis. No fracture seen.
[2021-12-10 02:40] LABS: Appearance,Urine Cloudy (Clear); Bacteria,Urine Few /hpf; Bilirubin,Urine Negative (Negative); Blood,Urine Negative (Negative); Color,Urine Yellow; Glucose,Urine (UA) Negative (Negative); Hyaline Casts,Urine 3 /lpf (0-2); Ketones,Urine Negative (Negative); Leukocyte Esterase,Urine Large (Negative); Mucus,Urine Moderate /hpf; Nitrite,Urine Negative (Negative); PH, Urine 5.5 (5.0-8.0); Protein,Urine Trace (Negative); RBC,Urine 3 /hpf (0-5); Specific Gravity,Urine 1.035 (1.001-1.035); Squamous Epithelial Cell,Urine 5 /hpf (0-4); WBC,Urine 91 /hpf (0-5)
[2021-12-10] MEDS ORDERED: NITROFURANTOIN MONOHYD/M-CRYST 100 MG CAP PO STA (03:00)
== END 2021-12-10 03:20 | disposition home or self-care (01) ==
LOC: EC 23:38
DX: S60.222A Contusion of left hand, initial encounter (principal); N39.0 Urinary tract infection, site not specified; E11.9 Type 2 diabetes mellitus without complications; I10 Essential (primary) hypertension; I48.91 Unspecified atrial fibrillation; J44.9 Chronic obstructive pulmonary disease, unspecified; K21.9 Gastro-esophageal reflux disease without esophagitis; M19.90 Unspecified osteoarthritis, unspecified site; E07.9 Disorder of thyroid, unspecified; F32.A Depression, unspecified; Z87.891 Personal history of nicotine dependence; Z79.01 Long term (current) use of anticoagulants; Z79.82 Long term (current) use of aspirin; Z79.890 Hormone replacement therapy; Z79.899 Other long term (current) drug therapy; X58.XXXA Exposure to other specified factors, initial encounter
CPT/HCPCS: 81001; 87086; 96372; 99283

== ENCOUNTER 2022-06-05 00:45 | Inpatient (IN) | payer MEDICARE, BC ==
[2022-06-05] MEDS ORDERED: MORPHINE SULFATE 2 MG/ML SYRINGE IM STA (01:04)
--- NOTE | 2022-06-05 01:14 | ED ---
General Adult HPI - General Chief complaint: Vaginal Bleeding Stated complaint: Vaginal Pain Time Seen by Provider: 06/05/22 00:52 Source: patient, family Mode of arrival: wheelchair Limitations: no limitations - History of Present Illness Initial comments: Patient is a 82-year-old female presenting with chief complaint of vulvar pain. Patient's son states that yesterday he noticed a lump to the vulva, patient was not complaining of any pain or discomfort. Today he states that there was pain and bleeding coming from the lung. They were seen in urgent care, she was started on Keflex and advised to follow-up with PCP for possible incision and drainage. Pain has gotten increasingly worse. Patient also has some excoriation on her buttocks, which occasionally bleeds. She does wear a brief period. No abdominal pain, nausea, vomiting, diarrhea. - Related Data Home Medications Medication Instructions Recorded Confirmed Levothyroxine Sodium [Synthroid] 150 mcg PO DAILY 09/30/13 02/23/22 Pravastatin Sodium [Pravachol] 80 mg PO HS 11/07/14 02/23/22 Multivitamins, Thera [Multivitamin 1 tab PO DAILY 06/01/18 02/23/22 (formulary)] Sotalol [Betapace] 80 mg PO BID 06/01/18 02/23/22 Vortioxetine Hydrobromide 10 mg PO DAILY 06/01/18 02/23/22 [Trintellix] Ferrous Sulfate [Iron (65 MG 325 mg PO DAILY 06/16/18 02/23/22 Elemental)] amLODIPine [Norvasc] 5 mg PO DAILY 06/16/18 02/23/22 Losartan/Hydrochlorothiazide 1 tab PO DAILY 08/18/18 02/23/22 [Losartan-Hctz 100-25 mg Tab] Donepezil [Aricept] 10 mg PO DAILY 06/22/21 02/23/22 Memantine [Namenda] 10 mg PO BID 06/22/21 02/23/22 Mirabegron [Myrbetriq] 50 mg PO DAILY 06/22/21 02/23/22 Sennosides-Docusate Sodium 1 tab PO HS 06/22/21 02/23/22 [Senokot-S] Cyanocobalamin [Vitamin B-12] 500 mcg PO DAILY 07/16/21 02/23/22 Rivaroxaban [Xarelto] 15 mg PO HS 07/16/21 02/23/22 Pantoprazole [Protonix] 40 mg PO BID 02/23/22 02/23/22 Previous Rx's Medication Instructions Recorded Acetaminophen [Tylenol Extra 500 mg PO Q8HR PRN #30 tablet 02/24/22 Strength] Ibuprofen [Motrin] 400 mg PO Q6HR PRN tab 02/26/22 Allergies Allergy/AdvReac Type Severity Reaction Status Date / Time azithromycin Allergy Rash/Hives Verified 02/23/22 11:47 [From Zithromax Z-Chau] codeine Allergy Unknown Verified 02/23/22 11:47 hydrochlorothiazide Allergy Unknown Verified 02/23/22 11:47 [From Dyazide] lincomycin HCl Allergy Unknown Verified 02/23/22 11:47 [From Lincocin] meperidine HCl [From Demerol] Allergy Unknown Verified 02/23/22 11:47 metronidazole [From Flagyl] Allergy Unknown Verified 02/23/22 11:47 Metronidazole HCl Allergy Unknown Verified 02/23/22 11:47 [From Flagyl] Penicillins Allergy Unknown Verified 02/23/22 11:47 Childhood Mjrcjxm-MFB-CxV Reductase Allergy Unknown Verified 02/23/22 11:47 Inhibitor Sulfa (Sulfonamide Allergy Unknown Verified 02/23/22 11:47 Antibiotics) tetracycline [Tetracycline] Allergy Unknown Verified 02/23/22 11:47 triamterene [From Dyazide] Allergy Unknown Verified 02/23/22 11:47 watermelon Allergy Swelling Verified 02/23/22 11:47 atorvastatin calcium AdvReac MUSCLE Verified 02/23/22 11:47 [From Lipitor] ACHES rosuvastatin calcium AdvReac MUSCLE Verified 02/23/22 11:47 [From Crestor] ACHES Review of Systems ROS Statement: Those systems with pertinent positive or pertinent negative responses have been documented in the HPI. ROS Other: All systems not noted in ROS Statement are negative. Past Medical History Past Medical History: Atrial Fibrillation, COPD, Dementia, Diabetes Mellitus, GERD/Reflux, Hyperlipidemia, Hypertension, Memory Impairment, Osteoarthritis (OA), Pneumonia, Thyroid Disorder Additional Past Medical History / Comment(s): Right hip infection w/wound vac in Jun.-tx. @[facility]-wound completely healed per son, SHINGLES TO RT FACE/EYE. diet controlled diabetes, osteoporosis, recent blood in stool,. ANEMIA WITH BLOOD TRANSFUSIONS. 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 Past Anesthesia/Blood Transfusion Reactions: No Reported Reaction Date of Last Stent Placement:: 2017 Past Psychological History: Unable to Obtain, Depression Smoking Status: Former smoker Past Alcohol Use History: None Reported Past Drug Use History: None Reported - Past Family History Daughter(s) Family Medical History: Cancer Father History Unknown: Yes Family Medical History: Hypertension Additional Family Medical History / Comment(s): BRAIN TUMOR Mother Family Medical History: Cancer General Exam Limitations: no limitations General appearance: alert, in no apparent distress Head exam: Present: atraumatic, normocephalic, normal inspection Eye exam: Present: normal appearance Neck exam: Present: normal inspection External exam: Present: swelling (Swelling to the left labia majora) Neurological exam: Present: alert, altered (History of dementia, she is at her baseline), CN II-XII intact Psychiatric exam: Present: normal affect, normal mood Skin exam: Present: warm, dry, normal color Expanded Type of lesion: Present: abscess (Left labia majora) Course Vital Signs 06/05/22 06/05/22 06/05/22 00:48 03:58 04:01 Temperature 97.4 F L 98.1 F Pulse Rate 61 68 Respiratory 20 18 Rate Blood Pressure 141/51 152/86 O2 Sat by Pulse 94 L 96 Oximetry Medical Decision Making - Medical Decision Making Was pt. sent in by a medical professional or institution (, PA, ANESTHESIOLOGIST PHYSICIAN, urgent care, hospital, or shelter...) When possible be specific @ -[No] Did you speak to anyone other than the patient for history (EMS, parent, family, police, friend...)? What history was obtained from this source @ -Patient's son Did you review nursing and triage notes (agree or disagree)? Why? @ -[I reviewed and agree with nursing and triage notes] Were old charts reviewed (outside hosp., previous admission, EMS record, old EKG, old radiological studies, urgent care reports/EKG's, shelter records)? Report findings @ -[No old charts were reviewed] Differential Diagnosis (chest pain, altered mental status, abdominal pain women, abdominal pain men, vaginal bleeding, weakness, fever, dyspnea, syncope, headache, dizziness, GI bleed, back pain, seizure, CVA, palpatations, mental health)? @ -Differential includes bartholin's abscess, cellulitis, abscess extending into the pelvis EKG interpreted by me (3pts min.). @ -[As above] X-rays interpreted by me (1pt min.). @ -[None done] CT interpreted by me (1pt min.). @ -Radiologist report is reviewed, Sigmoid diverticulosis without diverticulitis. Previous surgery right colon. No bowel obstruction. Interstitial infiltrates and atelectasis at the lung bases which are increased compared to old exam. No evidence of left groin abscess. U/S interpreted by me (1pt. min.). @ -[None done] What testing was considered but not performed or refused? (CT, X-rays, U/S, labs)? Why? @ -[None] What meds were considered but not given or refused? Why? @ -[None] Did you discuss the management of the patient with other professionals (professionals i.e. , PA, ANESTHESIOLOGIST PHYSICIAN, lab, RT, psych nurse, social media marketer, food and beverage associate, teacher, alumni relations officer, home health care case manager)? Give summary @ -[No] Was smoking cessation discussed for >3mins.? @ -[No] Was critical care preformed (if so, how long)? @ -[No] Were there social determinants of health that impacted care today? How? (Homelessness, low income, unemployed, alcoholism, drug addiction, transportation, low edu. Level, literacy, decrease access to med. care, detention, rehab)? @ -[No] Was there de-escalation of care discussed even if they declined (Discuss DNR or withdrawal of care, Hospice)? DNR status @ -[No] What co-morbidities impacted this encounter? (DM, HTN, Smoking, COPD, CAD, Ca ncer, CVA, ARF, Chemo, Hep., AIDS, mental health diagnosis, sleep apnea, morbid obesity)? @ -[None] Was patient admitted / discharged? Hospital course, mention meds given and route, prescriptions, significant lab abnormalities, going to OR and other pertinent info. @ -Patient is an 82-year-old female presenting with chief complaint of painful lump to the left labia that has been present for the last 2 days. Son notes that there is been blood draining from the area. Site was examined with my attending, he advised admission and IV antibiotics. Incision was attempted, no drainage was able to be expressed. Patient was started on vancomycin. CT showed no complicating process. I spoke with Sandie Martinez from [facility] who accepted admission. Patient is agreeable with this plan. I discussed this case with my attending Dr. Dumont Undiagnosed new problem with uncertain prognosis? @ -[No] Drug Therapy requiring intensive monitoring for toxicity (Heparin, Nitro, Insulin, Cardizem)? @ -[No] Were any procedures done? @ -[No] Diagnosis/symptom? @ -Cellulitis of the left labia Acute, or Chronic, or Acute on Chronic? @ -Acute Uncomplicated (without systemic symptoms) or Complicated (systemic symptoms)? @ -Uncomplicated Side effects of treatment? @ -[No] Exacerbation, Progression, or Severe Exacerbation? @ -[No] Poses a threat to life or bodily function? How? (Chest pain, [place], [place], pneumonia, PE, COPD, DKA, ARF, appy, cholecystitis, CVA, Diverticulitis, Homicidal, Suicidal, threat to staff... and all critical care pts) @ -[No] - Lab Data Result diagrams: 06/05/22 01:52 06/05/22 01:52 Lab Results 06/05/22 06/05/22 Range/Units 01:52 01:52 WBC 10.8 H (3.8-10.6) k/uL RBC 4.50 (3.80-5.40) m/uL Hgb 13.9 (11.4-16.0) gm/dL Hct 40.2 (34.0-46.0) % MCV 89.2 (80.0-100.0) fL MCH 30.8 (25.0-35.0) pg MCHC 34.5 (31.0-37.0) g/dL RDW 13.9 (11.5-15.5) % Plt Count 193 (150-450) k/uL MPV 9.5 Neutrophils % 75 % Lymphocytes % 13 % Monocytes % 8 % Eosinophils % 3 % Basophils % 1 % Neutrophils # 8.1 H (1.3-7.7) k/uL Lymphocytes # 1.3 (1.0-4.8) k/uL Monocytes # 0.8 (0-1.0) k/uL Eosinophils # 0.3 (0-0.7) k/uL Basophils # 0.1 (0-0.2) k/uL Sodium 135 L (137-145) mmol/L Potassium 4.3 (3.5-5.1) mmol/L Chloride 104 (98-107) mmol/L Carbon Dioxide 26 (22-30) mmol/L Anion Gap 5 mmol/L BUN 17 (7-17) mg/dL Creatinine 0.61 (0.52-1.04) mg/dL Est GFR (CKD-EPI)AfAm >90 (>60 ml/min/1.73 sqM) Est GFR (CKD-EPI)NonAf 85 (>60 ml/min/1.73 sqM) Glucose 115 H (74-99) mg/dL Calcium 9.4 (8.4-10.2) mg/dL Total Bilirubin 0.7 (0.2-1.3) mg/dL AST 25 (14-36) U/L ALT 16 (4-34) U/L Alkaline Phosphatase 107 (38-126) U/L Total Protein 6.5 (6.3-8.2) g/dL Albumin 3.5 (3.5-5.0) g/dL Disposition Clinical Impression: Cellulitis of labia Disposition: ADMITTED IP TO THIS HOSP Condition: Good Referrals: Maryann Craig DO [Primary Care Provider] - 1-2 days Time of Disposition: 04:10 Decision to Admit Reason: Admit from EC Decision Date: 06/05/22 Decision Time: 04:10
[2022-06-05] MEDS ORDERED: PIPERACILLIN-TAZOBACTAM 3.375 GM in SODIUM CHLORIDE 0.9% 100 ML IVPB STA (01:37)
[2022-06-05 02:08] LABS: Basophils # (A) 0.1 k/uL (0-0.2); Basophils % (A) 1 %; Eosinophils # (A) 0.3 k/uL (0-0.7); Eosinophils % (A) 3 %; HCT 40.2 % (34.0-46.0); HGB 13.9 gm/dL (11.4-16.0); Lymphocytes # (A) 1.3 k/uL (1.0-4.8); Lymphocytes % (A) 13 %; MCH 30.8 pg (25.0-35.0); MCHC 34.5 g/dL (31.0-37.0); MCV 89.2 fL (80.0-100.0); Mean Platelet Volume 9.5; Monocytes # (A) 0.8 k/uL (0-1.0); Monocytes % (A) 8 %; Neutrophils # (A) 8.1 k/uL (1.3-7.7); Neutrophils % (A) 75 %; Platelet Count 193 k/uL (150-450); RDW 13.9 % (11.5-15.5); WBC 10.8 k/uL (3.8-10.6)
[2022-06-05 02:20] LABS: ALT 16 U/L (4-34); AST 25 U/L (14-36); African American GFR (CKD) >90 (>60 ml/min/1.73 sqM); Albumin 3.5 g/dL (3.5-5.0); Alkaline Phosphatase 107 U/L (38-126); Anion Gap 5 mmol/L; Blood Urea Nitrogen 17 mg/dL (7-17); Calcium 9.4 mg/dL (8.4-10.2); Carbon Dioxide 26 mmol/L (22-30); Chloride 104 mmol/L (98-107); Glucose 115 mg/dL (74-99); Non-African American GFR(CKD) 85 (>60 ml/min/1.73 sqM); Sodium 135 mmol/L (137-145); Total Bilirubin 0.7 mg/dL (0.2-1.3); Total Protein 6.5 g/dL (6.3-8.2)
[2022-06-05 02:27] LABS: Potassium 4.3 mmol/L (3.5-5.1)
[2022-06-05] MEDS ORDERED: VANCOMYCIN IV PER PHARMACY 1 EACH MISC MISCELLANE PRN (02:31)
[2022-06-05] MEDS ORDERED: VANCOMYCIN 1,500 MG in SODIUM CHLORIDE 0.9% 500 ML 500 ML IVPB STA (02:40)
--- NOTE | 2022-06-05 03:39 | CT ---
EXAMINATION TYPE: CT abdomen pelvis w con DATE OF EXAM: 06/05/2022 COMPARISON: 11/02/2021 HISTORY: abscess lt groin CT DLP: 1919.5 mGycm Automated exposure control for dose reduction was used. CONTRAST: Performed with IV Contrast, patient injected with 100 mL of Isovue 300. Images obtained from the diaphragm to the floor of the pelvis with the IV contrast. There is some interstitial infiltrates and atelectasis at both lung bases. Heart is enlarged. No sammie cardial effusion. No pleural effusion. Liver and spleen are intact. There is a 2 cm cyst in the lateral spleen. No pancreatic mass. Stomach is intact. Gallbladder shows multiple gallstones. Bile ducts are not dilated. There is no adrenal mass. Kidneys show satisfactory contrast opacification. No hydronephrosis. Delaye d images show normal renal excretion. No retroperitoneal adenopathy. There is multiple surgical clips at the right colon. There is right hip prosthesis. Bladder distends smoothly. No inguinal hernia. No pelvic mass. There are numerous sigmoid diverticula. No diverticulitis. There is no mesenteric edema. No ascites or free air. No sign of a bowel obstruction. Abdominal aorta is atheromatous. No evidence of inguinal hernia. No evidence of an inguinal mass. No evidence of pathologic fluid marleny ection in the left groin region. IMPRESSION: There is sigmoid diverticulosis without diverticulitis. Previous surgery right colon. No bowel obstru ction. There is interstitial infiltrates and atelectasis at the lung bases which are increased compar ed to old exam. No evidence of a left groin abscess.
[2022-06-05] MEDS ORDERED: NALOXONE 0.4 MG/ML 1 ML VIAL IV PRN (04:08)
[2022-06-05] MEDS ORDERED: MORPHINE SULFATE 4 MG/ML SYRINGE IV PRN (04:08)
[2022-06-05] MEDS: KETOROLAC 15 MG/ML 1 ML VIAL IVP PRN ×3 (04:42→20:03)
[2022-06-05] MEDS: SODIUM CHLORIDE 0.9% 1,000 ML IV SCH ×2 (06:29→18:48)
[2022-06-05 08:21] LABS: Glucose,Whole Blood 114 mg/dL (70-110)
[2022-06-05] MEDS ORDERED: NITROGLYCERIN SL TABS 0.4 MG TAB SUBLINGUAL PRN (09:36)
[2022-06-05] MEDS: LORATADINE 10 MG TAB PO SCH (11:51)
[2022-06-05] MEDS: FERROUS SULFATE 325 MG TAB PO SCH (11:51)
[2022-06-05] MEDS: amLODIPine 5 MG TAB PO SCH (11:51)
[2022-06-05] MEDS: CYANOCOBALAMIN 500 MCG TAB PO SCH (11:51)
[2022-06-05] MEDS: DOCUSATE 100 MG CAP PO SCH (11:51)
[2022-06-05] MEDS: DONEPEZIL 10 MG TAB PO SCH (11:52)
[2022-06-05] MEDS: MEMANTINE 10 MG TAB PO SCH ×2 (11:52→20:03)
[2022-06-05] MEDS: LOSARTAN-HCTZ 50-12.5 MG 1 EACH TAB PO SCH (11:53)
[2022-06-05] MEDS: NON FORMULARY DRUG (Mirabegron [Myrbetriq] 50 MG Tablet) PO SCH (12:00)
[2022-06-05 12:52] LABS: Glucose,Whole Blood 112 mg/dL (70-110)
[2022-06-05] MEDS: LEVOTHYROXINE 75 MCG TAB PO SCH (12:53)
[2022-06-05] MEDS: MULTIVITAMINS, THERA 1 EACH TAB PO SCH (12:53)
[2022-06-05] MEDS: PANTOPRAZOLE 40 MG TABLET PO SCH ×2 (12:54→18:47)
--- NOTE | 2022-06-05 14:44 | P.HPIM ---
History of Present Illness H&P Date: 06/05/22 This is a pleasant 82-year-old female who presented to the emergency department with her son having left labia pain. Per son and patient, they recently went to an urgent care a few days ago and was started on oral Keflex and was instructed to follow-up with primary care provider. Per son the area of redness and pain has been worsening and he decided to bring her here for further evaluation. P atient also having some excoriation on her buttocks with no obvious ulcers just appears to be abrasions. Patient does wear a brief and is incontinent at times. Patient follows with Dr. Mckeon in the outpatient setting with a past medical history of atrial fibrillation, COPD, dementia, diabetes mellitus, GERD, hyperlipidemia, hypertension, memory impairment, osteoarthritis, hypothyroidism, and depression. Patient lives with son and he cares for her. Patient reports her pain is severe with light palpation and any movement. Patient underwent abdominal pelvis CT in the ER showing some sigmoid diverticulosis without diverticulitis and previous surgery of the right colon with no bowel obstruction noted there are some interstitial infiltrates and atelectasis at the lung bases with no evidence of a left groin abscess. Labs revealed on admission a WBC of 10.8, hemoglobin stable at 13.9, platelets 193, sodium 135, potassium 4.3, BUN 17, creatinine 0.61. Patient was started on antibiotics and given a dose of Zosyn along with vancomycin and admitted for left labial cellulitis. No consul tations were placed in the ER and after evaluation the patient placed a consult to Gen. surgery along with infectious disease. General surgery recommends gynecology evaluation at this time. She does take Xarelto in the outpatient setting and did take her last dose yesterday evening on 06/04/2022. Will hold Xarelto for now in the event of any surgical intervention. Currently awaiting gynecology consult. Review Of Systems: Constitutional: No fever, no chills, no night sweats. No weight change. No weakness, fatigue or lethargy. No daytime sleepiness. EENT: No headache. No blurred vision or double vision, no loss of vision. No loss of Hearing, no ringing in the ears, no dizziness. No nasal drainage or congestion. No epistaxis. No sore throat. Lungs: No shortness of breath, cough, no sputum production. No wheezing. Cardiovascular: No chest pain, no lower extremity edema. No palpitations. No paroxysmal nocturnal dyspnea. No orthopnea. No lightheadedness or dizziness. No syncopal episodes. Abdominal: No abdominal pain. No nausea, vomiting. No diarrhea. No constipation. No bloody or tarry stools.. No loss of appetite. Genitourinary: No dysuria, increased frequency, urgency. No urinary retention. Musculoskeletal: No myalgias. No muscle weakness, no gait dysfunction, no frequent falls. No back pain. No neck pain. Integumentary: No wounds, no lesions. No rash or pruritus. No unusual bruising. No change in hair or nails. Neurologic: No aphasia. No facial droop. No change in mentation. No head injury. No headache. No paralysis. No paresthesia. Psychiatric: No depression. No anxiety. No mood swings. Endocrine: No abnormal blood sugars. No weight change. No excessive sweating or thirst. No cold intolerance. PHYSICAL EXAMINATION: GENERAL: The patient is alert and oriented x2, Well developed, well nourished. Obese HEENT: Pupils are round and equally reacting to light. EOMI. no scleral icterus. No conjunctival pallor. Normocephalic, atraumatic. No pharyngeal erythema. No thyromegaly. CARDIOVASCULAR: S1 and S2 muffled PULMONARY: diminished breath sounds bilaterally with no wheezing or rhonchi noted. ABDOMEN: soft. Nontender on exam. obese. non-distended, normoactive bowel sounds. No palpable organomegaly. MUSCULOSKELETAL: No joint swelling or deformity. EXTREMITIES: No cyanosis, clubbing, or pedal edema. NEUROLOGICAL: Gross neurological examination did not reveal any focal deficits. Diffuse weakness Skin: Left labial erythema and induration with some dense tissue noted of the entire labia majora, extremely sensitive to light palpation with no obvious drainage noted Assessment: Left labial cellulitis with concerns for possible abscess, failure of outpatient treatment Mild leukocytosis, possibly secondary to above History of atrial fibrillation COPD, not an exacerbation [place] dementia Diabetes mellitus type 2, diet controlled GERD Hyperlipidemia Hypertension Osteoarthritis history Previous history of MRSA GI prophylaxis DVT prophylaxis Full code Plan: Recommend to continue with current medications and management of pain and will consult infectious disease for left labial cellulitis with possible abscess. Patient was given a dose of Zosyn and is continued on vancomycin with pharmacy to dose Recommend repeat labs and monitoring kidney functions closely Gen. surgery was consulted and discussed the case although recommends gynecology consult which has been placed in pending at this time Recommend to hold Xarelto for now in the event of possible incision and drainage Continue local wound care and recommend wound cultures Continue pain management Recommend monitoring Accu-Cheks before meals and at bedtime. Patient does have history of diabetes although diet controlled and recommend consistent carb diet and will use sliding scale if needed Will await gynecology evaluation The impression and plan of care has been dictated by Sabine Burch, nurse practitioner as directed. Dr. Nadia MITCHELL I have performed a history and examination and MDM of this patient, discussed the same with the dictator, and agree with the dictator's assessment and plan as written ,documented as a scribe. Based on total visit time, I have performed more than 50% of the visit. Any additional findings or plans will be noted. Past Medical History Past Medical History: Atrial Fibrillation, COPD, Dementia, Diabetes Mellitus, GERD/Reflux, Hyperlipidemia, Hypertension, Memory Impairment, Osteoarthritis (OA), Pneumonia, Thyroid Disorder Additional Past Medical History / Comment(s): Right hip infection w/wound vac in Jun.-tx. @[facility]-wound completely healed per son, SHINGLES TO RT FACE/EYE. diet controlled diabetes, osteoporosis, recent blood in stool,. ANEMIA WITH BLOOD TRANSFUSIONS. 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 Past Anesthesia/Blood Transfusion Reactions: No Reported Reaction Date of Last Stent Placement:: 2017 Past Psychological History: Unable to Obtain, Depression Smoking Status: Former smoker Past Alcohol Use History: None Reported Past Drug Use History: None Reported - Past Family History Daughter(s) Family Medical History: Cancer Father History Unknown: Yes Family Medical History: Hypertension Additional Family Medical History / Comment(s): BRAIN TUMOR Mother Family Medical History: Cancer Medications and Allergies Home Medications Medication Instructions Recorded Confirmed Type Levothyroxine Sodium [Synthroid] 150 mcg PO SUTUWETHSA 09/30/13 06/05/22 History Pravastatin Sodium [Pravachol] 80 mg PO HS 11/07/14 06/05/22 History Multivitamins, Thera [Multivitamin 1 tab PO DAILY 06/01/18 06/05/22 History (formulary)] Sotalol [Betapace] 80 mg PO BID 06/01/18 06/05/22 History Ferrous Sulfate [Iron (65 MG 325 mg PO DAILY 06/16/18 06/05/22 History Elemental)] amLODIPine [Norvasc] 5 mg PO DAILY 06/16/18 06/05/22 History Losartan/Hydrochlorothiazide 1 tab PO DAILY 08/18/18 06/05/22 History [Losartan-Hctz 100-25 mg Tab] Donepezil [Aricept] 10 mg PO DAILY 06/22/21 06/05/22 History Memantine [Namenda] 10 mg PO BID 06/22/21 06/05/22 History Mirabegron [Myrbetriq] 50 mg PO DAILY 06/22/21 06/05/22 History Sennosides-Docusate Sodium 1 tab PO HS 06/22/21 06/05/22 History [Senokot-S] Cyanocobalamin [Vitamin B-12] 500 mcg PO DAILY 07/16/21 06/05/22 History Rivaroxaban [Xarelto] 15 mg PO HS 07/16/21 06/05/22 History Pantoprazole [Protonix] 40 mg PO BID 02/23/22 06/05/22 History Acetaminophen [Tylenol Extra 500 mg PO Q8HR PRN #30 tablet 02/24/22 06/05/22 Rx Strength] Cephalexin [Keflex] 500 mg PO Q6HR 06/05/22 06/05/22 History Docusate [Colace] 100 mg PO DAILY 06/05/22 06/05/22 History Levothyroxine Sodium [Synthroid] 125 mcg PO MOFR 06/05/22 06/05/22 History Loratadine [Claritin] 10 mg PO DAILY 06/05/22 06/05/22 History Nitroglycerin Sl Tabs [Nitrostat] 0.4 mg SUBLINGUAL Q5M PRN 06/05/22 06/05/22 History Vortioxetine Hydrobromide 20 mg PO DAILY 06/05/22 06/05/22 History [Trintellix] Allergies Allergy/AdvReac Type Severity Reaction Status Date / Time azithromycin Allergy Rash/Hives Verified 06/05/22 08:29 [From Zithromax Z-Chau] codeine Allergy Unknown Verified 06/05/22 08:29 hydrochlorothiazide Allergy Unknown Verified 06/05/22 08:29 [From Dyazide] lincomycin HCl Allergy Unknown Verified 06/05/22 08:29 [From Lincocin] meperidine HCl [From Demerol] Allergy Unknown Verified 06/05/22 08:29 metronidazole [From Flagyl] Allergy Unknown Verified 06/05/22 08:29 Metronidazole HCl Allergy Unknown Verified 06/05/22 08:29 [From Flagyl] Penicillins Allergy Unknown Verified 06/05/22 08:29 Childhood Pnwneff-EXM-SsQ Reductase Allergy Unknown Verified 06/05/22 08:29 Inhibitor Sulfa (Sulfonamide Allergy Unknown Verified 06/05/22 08:29 Antibiotics) tetracycline [Tetracycline] Allergy Unknown Verified 06/05/22 08:29 triamterene [From Dyazide] Allergy Unknown Verified 06/05/22 08:29 watermelon Allergy Swelling Verified 06/05/22 08:29 atorvastatin calcium AdvReac MUSCLE Verified 06/05/22 08:29 [From Lipitor] ACHES rosuvastatin calcium AdvReac MUSCLE Verified 06/05/22 08:29 [From Crestor] ACHES Physical Exam Vitals: Vital Signs Temp Pulse Pulse Resp BP BP Pulse Ox 06/05/22 08:05 97.7 F 66 16 133/62 97 06/05/22 07:48 98.1 F 70 16 133/70 96 06/05/22 06:34 65 16 160/92 97 06/05/22 04:01 98.1 F 06/05/22 03:58 68 18 152/86 96 06/05/22 00:48 97.4 F L 61 20 141/51 94 L Intake and Output 06/04/22 06/05/22 06/05/22 22:59 06:59 14:59 Other: Weight 90.718 kg Results CBC & Chem 7: 06/05/22 01:52 06/05/22 01:52 Labs: Abnormal Lab Results - Last 24 Hours (Table) 06/05/22 06/05/22 06/05/22 Range/Units 01:52 01:52 08:20 WBC 10.8 H (3.8-10.6) k/uL Neutrophils # 8.1 H (1.3-7.7) k/uL Sodium 135 L (137-145) mmol/L Glucose 115 H (74-99) mg/dL POC Glucose (mg/dL) 114 H (70-110) mg/dL Thrombosis Risk Factor Assmnt - DVT/VTE Prophylaxis DVT/VTE Prophylaxis: Pharmacologic Prophylaxis ordered Assessment and Plan Time with Patient: Greater than 30
[2022-06-05 17:10] LABS: Glucose,Whole Blood 117 mg/dL (70-110)
--- NOTE | 2022-06-05 17:58 | P.OBCN ---
History of Present Illness Consult date: 06/05/22 Chief complaint: possible vulvar abscess History of present illness: the patient is an 82-year-old woman who lives with her son who is her caregiver and apparently developed some vulvar discomfort prompting presentation to a urgent care setting several days ago. At that time she was examined and placed on Keflex for possible vulvar cellulitis. Her pain continued to increase over the next several days prompting presentation to the emergency room here where she was found with significant vulvar edema and cellulitis and possible vulvar abscess. She is incontinent of urine and the vulva is constantly wet as a result. She was admitted to the internal medicine service for management and placed on broad-spectrum antibiotics. Consultation with general surgery lead to recommendation to consult gynecology given the location of the lesion. Infectious disease has additionally been consulted. The patient is not a good historian and can provide no significant history other than that the condition has been ongoing for several days to a week. There has reportedly been no drainage from the area but it is exquisitely tender. 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 Review of Systems review of systems is confined to history of present illness. Past Medical History Past Medical History: Atrial Fibrillation, COPD, Dementia, Diabetes Mellitus, GERD/Reflux, Hyperlipidemia, Hypertension, Memory Impairment, Osteoarthritis (OA), Pneumonia, Thyroid Disorder Additional Past Medical History / Comment(s): Right hip infection w/wound vac in Jun.-tx. @[facility]-wound completely healed per son, SHINGLES TO RT FACE/EYE. diet controlled diabetes, osteoporosis, recent blood in stool,. ANEMIA WITH BLOOD TRANSFUSIONS. 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 Past Anesthesia/Blood Transfusion Reactions: No Reported Reaction Date of Last Stent Placement:: 2017 Past Psychological History: Unable to Obtain, Depression Smoking Status: Former smoker Past Alcohol Use History: None Reported Past Drug Use History: None Reported - Past Family History Daughter(s) Family Medical History: Cancer Father History Unknown: Yes Family Medical History: Hypertension Additional Family Medical History / Comment(s): BRAIN TUMOR Mother Family Medical History: Cancer Medications and Allergies Home Medications Medication Instructions Recorded Confirmed Type Levothyroxine Sodium [Synthroid] 150 mcg PO SUTUWETHSA 09/30/13 06/05/22 History Pravastatin Sodium [Pravachol] 80 mg PO HS 11/07/14 06/05/22 History Multivitamins, Thera [Multivitamin 1 tab PO DAILY 06/01/18 06/05/22 History (formulary)] Sotalol [Betapace] 80 mg PO BID 06/01/18 06/05/22 History Ferrous Sulfate [Iron (65 MG 325 mg PO DAILY 06/16/18 06/05/22 History Elemental)] amLODIPine [Norvasc] 5 mg PO DAILY 06/16/18 06/05/22 History Losartan/Hydrochlorothiazide 1 tab PO DAILY 08/18/18 06/05/22 History [Losartan-Hctz 100-25 mg Tab] Donepezil [Aricept] 10 mg PO DAILY 06/22/21 06/05/22 History Memantine [Namenda] 10 mg PO BID 06/22/21 06/05/22 History Mirabegron [Myrbetriq] 50 mg PO DAILY 06/22/21 06/05/22 History Sennosides-Docusate Sodium 1 tab PO HS 06/22/21 06/05/22 History [Senokot-S] Cyanocobalamin [Vitamin B-12] 500 mcg PO DAILY 07/16/21 06/05/22 History Rivaroxaban [Xarelto] 15 mg PO HS 07/16/21 06/05/22 History Pantoprazole [Protonix] 40 mg PO BID 02/23/22 06/05/22 History Acetaminophen [Tylenol Extra 500 mg PO Q8HR PRN #30 tablet 02/24/22 06/05/22 Rx Strength] Cephalexin [Keflex] 500 mg PO Q6HR 06/05/22 06/05/22 History Docusate [Colace] 100 mg PO DAILY 06/05/22 06/05/22 History Levothyroxine Sodium [Synthroid] 125 mcg PO MOFR 06/05/22 06/05/22 History Loratadine [Claritin] 10 mg PO DAILY 06/05/22 06/05/22 History Nitroglycerin Sl Tabs [Nitrostat] 0.4 mg SUBLINGUAL Q5M PRN 06/05/22 06/05/22 History Vortioxetine Hydrobromide 20 mg PO DAILY 06/05/22 06/05/22 History [Trintellix] Allergies Allergy/AdvReac Type Severity Reaction Status Date / Time azithromycin Allergy Rash/Hives Verified 06/05/22 08:29 [From Zithromax Z-Chau] codeine Allergy Unknown Verified 06/05/22 08:29 hydrochlorothiazide Allergy Unknown Verified 06/05/22 08:29 [From Dyazide] lincomycin HCl Allergy Unknown Verified 06/05/22 08:29 [From Lincocin] meperidine HCl [From Demerol] Allergy Unknown Verified 06/05/22 08:29 metronidazole [From Flagyl] Allergy Unknown Verified 06/05/22 08:29 Metronidazole HCl Allergy Unknown Verified 06/05/22 08:29 [From Flagyl] Penicillins Allergy Unknown Verified 06/05/22 08:29 Childhood [id number] Reductase Allergy Unknown Verified 06/05/22 08:29 Inhibitor Sulfa (Sulfonamide Allergy Unknown Verified 06/05/22 08:29 Antibiotics) tetracycline [Tetracycline] Allergy Unknown Verified 06/05/22 08:29 triamterene [From Dyazide] Allergy Unknown Verified 06/05/22 08:29 watermelon Allergy Swelling Verified 06/05/22 08:29 atorvastatin calcium AdvReac MUSCLE Verified 06/05/22 08:29 [From Lipitor] ACHES rosuvastatin calcium AdvReac MUSCLE Verified 06/05/22 08:29 [From Crestor] ACHES Exam Vital Signs Temp Pulse Pulse Resp BP BP Pulse Ox 06/05/22 13:24 97.6 F 61 17 150/55 95 06/05/22 11:30 61 16 158/84 96 06/05/22 08:05 97.7 F 66 16 133/62 97 06/05/22 07:48 98.1 F 70 16 133/70 96 06/05/22 06:34 65 16 160/92 97 06/05/22 04:01 98.1 F 06/05/22 03:58 68 18 152/86 96 06/05/22 00:48 97.4 F L 61 20 141/51 94 L Intake and Output 06/05/22 06/05/22 06/05/22 06:59 14:59 22:59 Intake Total 600 Balance 600 Intake: Oral 600 Other: Voiding Method Bedside Commode Diaper # Voids 0 Weight 90.718 kg 90.718 kg examination is confined to external vulva and vaginal region. There is significant confluence of the entire left labia majora which is firm, swollen, and indurated as well as erythematous. There is 1 small area of the lower lateral portion which may be slightly draining. The areas entirely confluent with no evidence of pointing and I do not get a sense of any fluid within the mass that can be drained. In my estimation, this represents extensive vulvar cellulitis without abscess exacerbated by urinary incontinence. Results Result Diagrams: 06/05/22 01:52 06/05/22 01:52 Abnormal Lab Results - Last 24 Hours (Table) 06/05/22 06/05/22 06/05/22 Range/Units 01:52 01:52 08:20 WBC 10.8 H (3.8-10.6) k/uL Neutrophils # 8.1 H (1.3-7.7) k/uL Sodium 135 L (137-145) mmol/L Glucose 115 H (74-99) mg/dL POC Glucose (mg/dL) 114 H (70-110) mg/dL 06/05/22 06/05/22 Range/Units 12:51 17:09 WBC (3.8-10.6) k/uL Neutrophils # (1.3-7.7) k/uL Sodium (137-145) mmol/L Glucose (74-99) mg/dL POC Glucose (mg/dL) 112 H 117 H (70-110) mg/dL Assessment and Plan (1) Cellulitis of labia Current Visit: Yes Status: Acute Code(s): N76.2 - ACUTE VULVITIS SNOMED Code(s): 26443944 Plan: I do not see any evidence of abscess formation at this time and agree with continued broad spectrum antibiotics as well as potential anti-inflammatories. Attempts to keep the area dry would be of value the catheterization may put the patient at risk for other problems. A barrier cream of some sort could be considered though it is exquisitely sensitive to touch. As there is no surgical intervention necessary at this time, I will sign off the case and would ask that you call us back if anything changes or requires further intervention.
[2022-06-05] MEDS: VANCOMYCIN 1,500 MG in SODIUM CHLORIDE 0.9% 500 ML 500 ML IVPB SCH (18:47)
[2022-06-05] MEDS: PRAVASTATIN SODIUM 80 MG TAB PO SCH (20:03)
[2022-06-05] MEDS: SOTALOL 80 MG TAB PO SCH (20:03)
[2022-06-05] MEDS: SENNOSIDES-DOCUSATE SODIUM 1 EACH TAB PO SCH (20:03)
[2022-06-05 20:34] LABS: Glucose,Whole Blood 102 mg/dL (70-110)
[2022-06-05] MEDS ORDERED: RIVAROXABAN 15 MG TAB PO SCH (21:00)
--- NOTE | 2022-06-05 21:20 | P.CONS ---
History of Present Illness - Reason for Consult Consult date: 06/05/22 Labial abscess Requesting physician: Holly Zuniga - Chief Complaint Left labial pain and swelling x few days - History of Present Illness Patient is a 82-year-old female with past medical history significant for COPD diabetes mellitus hypertension hyperlipidemia dementia and atrial fibrillation patient was brought into the ER by son with concern for left labial pain and swelling apparently has been going on for a few days for the patient was started on oral Keflex by her primary care physician however the patient noticed having increasing redness and pain and brought the patient to the hospital for further evaluation, patient of presentation to the hospital was afebrile and no fever has been recorded and subsequently patient did have white of 10.8 with a left shift creatinine has been normal, patient did have a CT of abdominal pelvis didn't mention any drainable abscess patient was started on vancomycin and admitted to the hospital with consult to Gen. surgery for drainage of this abscess infectious disease was consulted for further management of antibiotic therapy, most information has been obtained from review the chart and talking to nursing staff that the patient was self-limited good historian she has been complaining of pain however unable to quantify it any further dizziness wall area which is draining but no foul-smelling Review of Systems Positive points has been mentioned in HPI complete review could not be obtained because of his underlying mental status Past Medical History Past Medical History: Atrial Fibrillation, COPD, Dementia, Diabetes Mellitus, GERD/Reflux, Hyperlipidemia, Hypertension, Memory Impairment, Osteoarthritis (OA), Pneumonia, Thyroid Disorder Additional Past Medical History / Comment(s): Right hip infection w/wound vac in Jun.-tx. @[facility]-wound completely healed per son, SHINGLES TO RT FACE/EYE. diet controlled diabetes, osteoporosis, recent blood in stool,. ANEMIA WITH BLOOD TRANSFUSIONS. 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 Past Anesthesia/Blood Transfusion Reactions: No Reported Reaction Date of Last Stent Placement:: 2017 Past Psychological History: Unable to Obtain, Depression Smoking Status: Former smoker Past Alcohol Use History: None Reported Past Drug Use History: None Reported - Past Family History Daughter(s) Family Medical History: Cancer Father History Unknown: Yes Family Medical History: Hypertension Additional Family Medical History / Comment(s): BRAIN TUMOR Mother Family Medical History: Cancer Medications and Allergies Home Medications Medication Instructions Recorded Confirmed Type Levothyroxine Sodium [Synthroid] 150 mcg PO SUTUWETHSA 09/30/13 06/05/22 History Pravastatin Sodium [Pravachol] 80 mg PO HS 11/07/14 06/05/22 History Multivitamins, Thera [Multivitamin 1 tab PO DAILY 06/01/18 06/05/22 History (formulary)] Sotalol [Betapace] 80 mg PO BID 06/01/18 06/05/22 History Ferrous Sulfate [Iron (65 MG 325 mg PO DAILY 06/16/18 06/05/22 History Elemental)] amLODIPine [Norvasc] 5 mg PO DAILY 06/16/18 06/05/22 History Losartan/Hydrochlorothiazide 1 tab PO DAILY 08/18/18 06/05/22 History [Losartan-Hctz 100-25 mg Tab] Donepezil [Aricept] 10 mg PO DAILY 06/22/21 06/05/22 History Memantine [Namenda] 10 mg PO BID 06/22/21 06/05/22 History Mirabegron [Myrbetriq] 50 mg PO DAILY 06/22/21 06/05/22 History Sennosides-Docusate Sodium 1 tab PO HS 06/22/21 06/05/22 History [Senokot-S] Cyanocobalamin [Vitamin B-12] 500 mcg PO DAILY 07/16/21 06/05/22 History Rivaroxaban [Xarelto] 15 mg PO HS 07/16/21 06/05/22 History Pantoprazole [Protonix] 40 mg PO BID 02/23/22 06/05/22 History Acetaminophen [Tylenol Extra 500 mg PO Q8HR PRN #30 tablet 02/24/22 06/05/22 Rx Strength] Cephalexin [Keflex] 500 mg PO Q6HR 06/05/22 06/05/22 History Docusate [Colace] 100 mg PO DAILY 06/05/22 06/05/22 History Levothyroxine Sodium [Synthroid] 125 mcg PO MOFR 06/05/22 06/05/22 History Loratadine [Claritin] 10 mg PO DAILY 06/05/22 06/05/22 History Nitroglycerin Sl Tabs [Nitrostat] 0.4 mg SUBLINGUAL Q5M PRN 06/05/22 06/05/22 History Vortioxetine Hydrobromide 20 mg PO DAILY 06/05/22 06/05/22 History [Trintellix] Allergies Allergy/AdvReac Type Severity Reaction Status Date / Time azithromycin Allergy Rash/Hives Verified 06/05/22 08:29 [From Zithromax Z-Chau] codeine Allergy Unknown Verified 06/05/22 08:29 hydrochlorothiazide Allergy Unknown Verified 06/05/22 08:29 [From Dyazide] lincomycin HCl Allergy Unknown Verified 06/05/22 08:29 [From Lincocin] meperidine HCl [From Demerol] Allergy Unknown Verified 06/05/22 08:29 metronidazole [From Flagyl] Allergy Unknown Verified 06/05/22 08:29 Metronidazole HCl Allergy Unknown Verified 06/05/22 08:29 [From Flagyl] Penicillins Allergy Unknown Verified 06/05/22 08:29 Childhood [id number]-[id number] Reductase Allergy Unknown Verified 06/05/22 08:29 Inhibitor Sulfa (Sulfonamide Allergy Unknown Verified 06/05/22 08:29 Antibiotics) tetracycline [Tetracycline] Allergy Unknown Verified 06/05/22 08:29 triamterene [From Dyazide] Allergy Unknown Verified 06/05/22 08:29 watermelon Allergy Swelling Verified 06/05/22 08:29 atorvastatin calcium AdvReac MUSCLE Verified 06/05/22 08:29 [From Lipitor] ACHES rosuvastatin calcium AdvReac MUSCLE Verified 06/05/22 08:29 [From Crestor] ACHES Physical Exam Vitals: Vital Signs Temp Pulse Pulse Resp BP BP Pulse Ox 06/05/22 08:05 97.7 F 66 16 133/62 97 06/05/22 07:48 98.1 F 70 16 133/70 96 06/05/22 06:34 65 16 160/92 97 06/05/22 04:01 98.1 F 06/05/22 03:58 68 18 152/86 96 06/05/22 00:48 97.4 F L 61 20 141/51 94 L Intake and Output 06/04/22 06/05/22 06/05/22 22:59 06:59 14:59 Other: # Voids 3 Weight 90.718 kg GENERAL DESCRIPTION: Elderly female lying in bed, no distress. No tachypnea or accessory muscle of respiration use. HEENT: Shows Pallor , no scleral icterus. Oral mucous membrane is dry. No pharyngeal erythema or thrush NECK: Trachea central, no thyromegaly. LUNGS: Unlabored breathing. Clear to auscultation anteriorly. No wheeze or crackle. HEART: S1, S2, regular rate and rhythm. No loud murmur ABDOMEN: Soft, no tenderness , guarding or rigidity, no organomegaly : Patient examined with the RN did have a left labial swelling and induration and small area of drainage was cultured EXTREMITIES: No edema of feet. SKIN: No rash, no masses palpable. NEUROLOGICAL: The patient is awake, alert, oriented x2, mood and affect normal. Results CBC & Chem 7: 06/05/22 01:52 06/05/22 01:52 Labs: Abnormal Lab Results - Last 24 Hours (Table) 06/05/22 06/05/22 06/05/22 Range/Units 01:52 01:52 08:20 WBC 10.8 H (3.8-10.6) k/uL Neutrophils # 8.1 H (1.3-7.7) k/uL Sodium 135 L (137-145) mmol/L Glucose 115 H (74-99) mg/dL POC Glucose (mg/dL) 114 H (70-110) mg/dL Assessment and Plan (1) Cellulitis of labia Current Visit: Yes Status: Acute Code(s): N76.2 - ACUTE VULVITIS SNOMED Code(s): 47144297 Plan: 1patient with left labial abscess and cellulitis likely from gram-positive skin dimitrios failing outpatient oral Keflex with a question of possible community associated MRSA 2culture has been obtained and further antibiotic therapy however RN has been advised to make sure deep cultures were obtained at the time of surgical drainage 3Vancomycin pharmacy to dose target trough of 15 while watching kidney function and Vanco trough closely We will follow on clinical condition and cultures to further adjust medication if needed Thank you for this consultation will follow this patient with you Time with Patient: Greater than 30
[2022-06-06] MEDS: PANTOPRAZOLE 40 MG TABLET PO SCH ×2 (05:56→17:48)
[2022-06-06] MEDS: LEVOTHYROXINE 75 MCG TAB PO SCH (05:56)
[2022-06-06 06:04] LABS: Glucose,Whole Blood 95 mg/dL (70-110)
[2022-06-06] MEDS: KETOROLAC 15 MG/ML 1 ML VIAL IVP PRN (09:26)
[2022-06-06] MEDS: LORATADINE 10 MG TAB PO SCH (09:27)
[2022-06-06] MEDS: DONEPEZIL 10 MG TAB PO SCH (09:27)
[2022-06-06] MEDS: FERROUS SULFATE 325 MG TAB PO SCH (09:27)
[2022-06-06] MEDS: amLODIPine 5 MG TAB PO SCH (09:27)
[2022-06-06] MEDS: DOCUSATE 100 MG CAP PO SCH (09:27)
[2022-06-06] MEDS: SOTALOL 80 MG TAB PO SCH ×2 (09:27→20:51)
[2022-06-06] MEDS: MULTIVITAMINS, THERA 1 EACH TAB PO SCH (09:27)
[2022-06-06] MEDS: VORTIOXETINE HYDROBROMIDE 20 MG TABLET PO SCH (09:27)
[2022-06-06] MEDS: MEMANTINE 10 MG TAB PO SCH ×2 (09:27→20:45)
[2022-06-06] MEDS: CYANOCOBALAMIN 500 MCG TAB PO SCH (09:27)
[2022-06-06] MEDS: LEVOTHYROXINE 125 MCG TAB PO SCH (09:27)
[2022-06-06] MEDS: LOSARTAN-HCTZ 50-12.5 MG 1 EACH TAB PO SCH (09:27)
[2022-06-06] MEDS: NON FORMULARY DRUG (Mirabegron [Myrbetriq] 50 MG Tablet) PO SCH (09:28)
[2022-06-06] MEDS: VANCOMYCIN 1,500 MG in SODIUM CHLORIDE 0.9% 500 ML 500 ML IVPB SCH (11:04)
[2022-06-06 11:09] LABS: African American GFR (CKD) 79.5 (60.0-200.0); Non-African American GFR(CKD) 68.6 (60.0-200.0)
[2022-06-06 12:06] LABS: Glucose,Whole Blood 137 mg/dL (70-110)
--- NOTE | 2022-06-06 13:25 | P.PN ---
Subjective Progress Note Date: 06/06/22 Principal diagnosis: Left labial abscess and cellulitis Patient is a 82-year-old female who was brought into the hospital for evaluation of left labial pain swelling and redness failing outpatient oral Keflex therapy see the abdominal pelvis did not show any evidence of any abscess patient was evaluated by JEWEL CUPPING MACHINE OPERATOR recommending no surgical drainage. on today's evaluation of that is 06/06/2022, the patient is afebrile, the patient is breathing comfortably on room air, the patient denies having any chest or cough no abdominal pain or any worsening pain to the pelvic area and no diarrhea has been reported by the nursing staff Objective - Vital Signs Vital signs: Vital Signs Temp 97.6 F 06/06/22 07:15 Pulse 61 06/06/22 07:15 Resp 16 06/06/22 07:15 BP 150/67 06/06/22 07:15 Pulse Ox 98 06/06/22 07:15 FiO2 Intake & Output 06/05/22 06/06/22 06/06/22 18:59 06:59 18:59 Intake Total 600 Balance 600 Weight 90.718 kg Intake: Oral 600 Other: Voiding Method Bedside Commode Bedside Commode Diaper Diaper # Voids 1 2 # Bowel Movements 1 - Exam GENERAL DESCRIPTION: An elderly male lying in bed in no distress RESPIRATORY SYSTEM: Unlabored breathing , decreased breath sounds at bases HEART: S1 S2 regular rate and rhythm , ABDOMEN: Soft , no tenderness : Left labial swelling or redness slightly decreased EXTREMITIES: No edema feet - Labs CBC & Chem 7: 06/05/22 01:52 06/06/22 05:20 Labs: Abnormal Lab Results - Last 24 Hours (Table) 06/05/22 06/05/22 Range/Units 12:51 17:09 POC Glucose (mg/dL) 112 H 117 H (70-110) mg/dL Microbiology - Last 24 Hours (Table) 06/05/22 11:35 Gram Stain - Preliminary Other - Other Wound Culture - Preliminary 06/05/22 03:15 Blood Culture - Preliminary Blood No Growth after 24 hours 06/05/22 11:35 Anaerobic Culture - Preliminary Labia Assessment and Plan (1) Cellulitis of labia Current Visit: Yes Status: Acute Code(s): N76.2 - ACUTE VULVITIS SNOMED Code(s): 98913305 Plan: 1patient with left labial abscess and cellulitis likely from gram-positive skin dimitrios failing outpatient oral Keflex with a question of possible community associated MRSA 2culture has been obtained and further antibiotic therapy 3-patient evaluated by JEWEL CUPPING MACHINE OPERATOR recommending no surgical drainage 4patient to continue with Vancomycin pharmacy to dose target trough of 15 while watching kidney function and Vanco trough closely while waiting for the cultures to finalize Time with Patient: Less than 30
--- NOTE | 2022-06-06 13:27 | US ---
EXAMINATION TYPE: US pelvic limited DATE OF EXAM: 06/06/2022 COMPARISON: NONE CLINICAL HISTORY: 82-year-old female left labial pain, cellulitis, abscess. Left labial pain/ swellin g Technique targeted ultrasound examination at the site of clinical concern along the left labia. FINDINGS: Belt Worker notes: Left labial superficial edema when compared to right labia/ no sizeable fluid collection visualized IMPRESSION: Targeted scanning along the left labia the site of patient concern. There is generalized cellulitis d emonstrated. No discrete fluid collection by ultrasound.
--- NOTE | 2022-06-06 14:25 | CDI ---
Documentation Clarification Form Date: 06/06/2022 2:01:13 PM From: Tari Coleman RN CCDS Admit Date: 06/06/2022 11:12:00 AM Patient Name: Cielo Palomino Visit Number: [id number] Discharge Date: ATTENTION: The Clinical Documentation Specialists (CDI) and [facility] Coding Staff appreciate your assistance in clarifying documentation. Please respond to the clarification below the line at the bottom and electronically sign. The CDI & [facility] Coding staff will review the response and follow-up if needed. Please note: Queries are made part of the Legal Health Record. If you have any questions, please contact the author of this message via ITS. Dr. Holly Zuniga Left labial Cellulitis is documented 06/05, H&P. Additional clarification regarding the type of cellulitis is requested. History/risk factors: 82-year-old female presents to the ED with left labia pain and lump recently seen at urgent care started on oral Keflex. The pain and redness have worsened. Medical history: COPD, DM2 diet controlled, Atrial fib, HLD, HTN. H&P, 06/05. Clinical Indicators: VS, 06/05: B/P 141/51; HR 61; Temp 97.4F Oral; RR 20 SpO2 94% room air Labs, 06/05: Wbc 10.8; Neutrophils 8.1; Na 135; Glucose 115. POC Glucose 06/05: 114; 112; 117; 102; 06/06: 95; 137 US pelvic, 06/06: Targeted scanning along the left labia the site of patient concern. There is generalized cellulitis demonstrated. No discrete fluid collection by ultrasound. Gram stain wound culture, 06/05: Preliminary: Presumptive MRSA ED note, 06/05: Pain has gotten increasingly worse. Patient also has some excoriation on her buttocks, which occasionally bleeds. She does wear a brief period. Treatment: 06/06 Vancomycin IVPB Q16H; Diet controlled DM Heart healthy diet, consistent carbohydrate; 06/05 Accucheck (Blood glucose monitoring) ACHS. Please clarify the type of cellulitis, if known: [ x ] Cellulitis due to DM2 [ ] Cellulitis not due to DM2 [ ] Other, please specify: [ ] Unable to determine (Template Last Revised: July 2020) MTDD
[2022-06-06] MEDS ORDERED: amLODIPine 5 MG TAB PO STA (15:47)
[2022-06-06 17:50] LABS: Glucose,Whole Blood 94 mg/dL (70-110)
--- NOTE | 2022-06-06 20:04 | P.PN ---
Subjective Progress Note Date: 06/06/22 This is a pleasant 82-year-old female who presented to the emergency department with her son having left labia pain. Per son and patient, they recently went to an urgent care a few days ago and was started on oral Keflex and was instructed to follow-up with primary care provider. Per son the area of redness and pain has been worsening and he decided to bring her here for further evaluation. Patient also having some excoriation on her buttocks with no obvious ulcers just appears to be abrasions. Patient does wear a brief and is incontinent at times. Patient follows with Dr. Mckeon in the outpatient setting with a past medical history of atrial fibrillation, COPD, dementia, diabetes mellitus, GERD, hyperlipidemia, hypertension, memory impairment, osteoarthritis, hypothyroidism, and depression. Patient lives with son and he cares for her. Patient reports her pain is severe with light palpation and any movement. Patient underwent abdominal pelvis CT in the ER showing some sigmoid diverticulosis without diverticulitis and previous surgery of the right colon with no bowel obstruction noted there are some interstitial infiltrates and atelectasis at the lung bases with no evidence of a left groin abscess. Labs revealed on admission a WBC of 10.8, hemoglobin stable at 13.9, platelets 193, sodium 135, potassium 4.3, BUN 17, creatinine 0.61. Patient was started on antibiotics and given a dose of Zosyn along with vancomycin and admitted for left labial cellulitis. No consultations were placed in the ER and after evaluation the patient placed a consult to Gen. surgery along with infectious disease. General surgery recommends gynecology evaluation at this time. She does take Xarelto in the outpatient setting and did take her last dose yesterday evening on 06/04/2022. Will hold Xarelto for now in the event of any surgical intervention. Currently awaiting gynecology consult. 06/06/2022 Patient is seen and evaluated in follow-up today with infectious disease following. Gynecology Dr. Clarke evaluated the patient with no plans for surgical intervention at this time and recommend continuing with local wound care and antibiotics for extensive cellulitis of the left labia. Patient is afebrile. Cultures were obtained and awaiting finalized cultures to determine discharge antibiotics. Will obtain labial ultrasound which is pending at this time. Patient denies chest pain or shortness of breath and reports is tolerating diet. Patient does have history of dementia with concerns for developing hospital-acquired delirium will add low-dose Seroquel at night. Review of systems: Constitutional: No reports of fatigue, fever, or chills Cardiovascular: No reports of chest pain or palpitations Respiratory: No reports of shortness of breath or cough GI: No reports of nausea, vomiting, or diarrhea : No reports of dysuria or retention, patient is incontinent and reports severe left labial pain Neurovascular: No reports of weakness or numbness All medications have been reviewed PHYSICAL EXAMINATION: GENERAL: The patient is alert and oriented x2, Well developed, well nourished. Obese HEENT: Pupils are round and equally reacting to light. EOMI. no scleral icterus. No conjunctival pallor. Normocephalic, atraumatic. No pharyngeal erythema. No thyromegaly. CARDIOVASCULAR: S1 and S2 muffled PULMONARY: diminished breath sounds bilaterally with no wheezing or rhonchi noted. ABDOMEN: soft. Nontender on exam. obese. non-distended, normoactive bowel sounds. No palpable organomegaly. MUSCULOSKELETAL: No joint swelling or deformity. EXTREMITIES: No cyanosis, clubbing, or pedal edema. NEUROLOGICAL: Gross neurological examination did not reveal any focal deficits. Diffuse weakness Skin: Left labial erythema and induration with some dense tissue noted of the entire labia majora, extremely sensitive to light palpation with no obvious drainage noted Assessment: Left labial cellulitis with failure of outpatient treatment, not due to diabete s, showing MRSA on cultures Mild leukocytosis, possibly secondary to above History of atrial fibrillation COPD, not an exacerbation dementia Diabetes mellitus type 2, diet controlled GERD Hyperlipidemia Hypertension Osteoarthritis history Previous history of MRSA GI prophylaxis DVT prophylaxis Full code Plan: Recommend to continue with current medications and management of pain with infectious disease following for left labial cellulitis with failure of outpatient treatment. Patient is continued on vancomycin while awaiting for cultures, preliminary showing presumptive MRSA Gynecology consulted and Dr. Clarke evaluated the patient recommending no surgical intervention and continuing with antibiotics and extensive hygiene and keeping the area clean and dry as much as possible. This is extremely difficult as patient is incontinent and wears a brief period Recommend repeat labs and monitoring kidney functions close Xarelto has been resumed Continue local wound care and will await finalized cultures and discuss with infectious disease as presumptive MRSA is on the cultures currently Continue pain management, recommend to limit the use of narcotics as patient does have history of dementia and also elderly Recommend monitoring Accu-Cheks before meals and at bedtime. Patient does have history of diabetes although diet controlled and recommend consistent carb diet and will use sliding scale if needed The impression and plan of care has been dictated by Sabine Burch, nurse practitioner as directed. Dr. Nadia MITCHELL I have performed a history and examination and MDM of this patient, discussed the same with the dictator, and agree with the dictator's assessment and plan as written ,documented as a scribe. Based on total visit time, I have performed more than 50% of the visit. Any additional findings or plans will be noted. Objective - Vital Signs Vital signs: Vital Signs Temp 97.6 F 06/06/22 07:15 Pulse 61 06/06/22 07:15 Resp 16 06/06/22 07:15 BP 150/67 06/06/22 07:15 Pulse Ox 98 06/06/22 07:15 FiO2 Intake & Output 06/05/22 06/06/22 06/06/22 18:59 06:59 18:59 Intake Total 600 Balance 600 Weight 90.718 kg Intake: Oral 600 Other: Voiding Method Bedside Commode Bedside Commode Diaper Diaper # Voids 1 2 # Bowel Movements 1 - Labs CBC & Chem 7: 06/05/22 01:52 06/06/22 05:20 Labs: Abnormal Lab Results - Last 24 Hours (Table) 06/05/22 06/05/22 Range/Units 12:51 17:09 POC Glucose (mg/dL) 112 H 117 H (70-110) mg/dL Microbiology - Last 24 Hours (Table) 06/05/22 11:35 Gram Stain - Preliminary Other - Other Wound Culture - Preliminary 06/05/22 03:15 Blood Culture - Preliminary Blood No Growth after 24 hours 06/05/22 11:35 Anaerobic Culture - Preliminary Labia
[2022-06-06] MEDS: PRAVASTATIN SODIUM 80 MG TAB PO SCH (20:45)
[2022-06-06] MEDS: RIVAROXABAN 15 MG TAB PO SCH (20:45)
[2022-06-06] MEDS: SENNOSIDES-DOCUSATE SODIUM 1 EACH TAB PO SCH (20:45)
[2022-06-06] MEDS: QUEtiapine 25 MG TAB PO SCH (20:45)
[2022-06-06] MEDS: SODIUM CHLORIDE 0.9% 1,000 ML IV SCH (20:46)
[2022-06-06 21:07] LABS: Glucose,Whole Blood 136 mg/dL (70-110)
[2022-06-07] MEDS: VANCOMYCIN 1,500 MG in SODIUM CHLORIDE 0.9% 500 ML 500 ML IVPB SCH ×2 (02:55→18:40)
[2022-06-07] MEDS: LEVOTHYROXINE 75 MCG TAB PO SCH (05:42)
[2022-06-07] MEDS: PANTOPRAZOLE 40 MG TABLET PO SCH ×2 (05:43→17:29)
[2022-06-07 07:30] LABS: Glucose,Whole Blood 121 mg/dL (70-110)
[2022-06-07 08:16] LABS: Basophils # (A) 0.1 k/uL (0-0.2); Basophils % (A) 1 %; Eosinophils # (A) 0.3 k/uL (0-0.7); Eosinophils % (A) 5 %; HCT 39.8 % (34.0-46.0); HGB 12.5 gm/dL (11.4-16.0); Lymphocytes # (A) 0.9 k/uL (1.0-4.8); Lymphocytes % (A) 16 %; MCH 29.4 pg (25.0-35.0); MCHC 31.4 g/dL (31.0-37.0); MCV 93.5 fL (80.0-100.0); Mean Platelet Volume 9.5; Monocytes # (A) 0.5 k/uL (0-1.0); Monocytes % (A) 8 %; Neutrophils % (A) 69 %; Platelet Count 198 k/uL (150-450); RBC 4.25 m/uL (3.80-5.40); RDW 13.5 % (11.5-15.5); WBC 5.7 k/uL (3.8-10.6)
[2022-06-07 08:46] LABS: African American GFR (CKD) >90 (>60 ml/min/1.73 sqM); Anion Gap 2 mmol/L; Blood Urea Nitrogen 18 mg/dL (7-17); Calcium 9.2 mg/dL (8.4-10.2); Carbon Dioxide 24 mmol/L (22-30); Chloride 112 mmol/L (98-107); Glucose 104 mg/dL (74-99); Non-African American GFR(CKD) 79 (>60 ml/min/1.73 sqM); Potassium 3.5 mmol/L (3.5-5.1); Sodium 138 mmol/L (137-145)
[2022-06-07] MEDS: MULTIVITAMINS, THERA 1 EACH TAB PO SCH (09:57)
[2022-06-07] MEDS: LOSARTAN-HCTZ 50-12.5 MG 1 EACH TAB PO SCH (09:57)
[2022-06-07] MEDS: SOTALOL 80 MG TAB PO SCH ×2 (09:57→20:40)
[2022-06-07] MEDS: VORTIOXETINE HYDROBROMIDE 20 MG TABLET PO SCH (09:57)
[2022-06-07] MEDS: FERROUS SULFATE 325 MG TAB PO SCH (09:57)
[2022-06-07] MEDS: DOCUSATE 100 MG CAP PO SCH (09:57)
[2022-06-07] MEDS: LORATADINE 10 MG TAB PO SCH (09:57)
[2022-06-07] MEDS: MEMANTINE 10 MG TAB PO SCH ×2 (09:58→20:40)
[2022-06-07] MEDS: amLODIPine 10 MG TAB PO SCH (09:58)
[2022-06-07] MEDS: DONEPEZIL 10 MG TAB PO SCH (09:58)
[2022-06-07] MEDS: CYANOCOBALAMIN 500 MCG TAB PO SCH (09:58)
[2022-06-07] MEDS: NON FORMULARY DRUG (Mirabegron [Myrbetriq] 50 MG Tablet) PO SCH (10:01)
[2022-06-07 12:24] LABS: Glucose,Whole Blood 117 mg/dL (70-110)
--- NOTE | 2022-06-07 13:37 | P.PN ---
Subjective Progress Note Date: 06/07/22 Principal diagnosis: Left labial abscess and cellulitis Patient is a 82-year-old female who was brought into the hospital for evaluation of left labial pain swelling and redness failing outpatient oral Keflex therapy see the abdominal pelvis did not show any evidence of any abscess patient was evaluated by [facility] recommending no surgical drainage. on today's evaluation of that is 06/07/2022, the patient remains to be afebrile, the patient is breathing comfortably on room air, the patient denies having any chest or cough no abdominal pain, has been complaining of pain to the pelvic area but not able to quantify it any further no vomiting or diarrhea has been reported by the staff Objective - Vital Signs Vital signs: Vital Signs Temp 97.6 F 06/07/22 07:30 Pulse 63 06/07/22 08:00 Resp 16 06/07/22 08:00 BP 168/69 06/07/22 07:30 Pulse Ox 93 L 06/07/22 07:30 FiO2 Intake & Output 06/06/22 06/07/22 06/07/22 18:59 06:59 18:59 Intake Total 148 740 118 Output Total 350 Balance -202 740 118 Intake: Intake, IV Titration 500 Amount Vancomycin 1,500 mg In 500 Sodium Chloride 0.9% 500 ml 500 ml @ 167 mls/hr IVPB Q16H [facility] Rx#: [id number] Oral 148 240 118 Output: Urine 350 Other: Voiding Method External Catheter External Catheter External Catheter - Exam GENERAL DESCRIPTION: An elderly male lying in bed in no distress RESPIRATORY SYSTEM: Unlabored breathing , decreased breath sounds at bases HEART: S1 S2 regular rate and rhythm , ABDOMEN: Soft , no tenderness : Left labial swelling and redness but no purulent drainage per the nursing staff EXTREMITIES: No edema feet - Labs CBC & Chem 7: 06/07/22 07:51 06/07/22 07:51 Labs: Abnormal Lab Results - Last 24 Hours (Table) 06/06/22 06/07/22 06/07/22 Range/Units 21:06 07:29 07:51 Lymphocytes # (1.0-4.8) k/uL Chloride 112 H (98-107) mmol/L BUN 18 H (7-17) mg/dL Glucose 104 H (74-99) mg/dL POC Glucose (mg/dL) 136 H 121 H (70-110) mg/dL 06/07/22 06/07/22 Range/Units 07:51 12:23 Lymphocytes # 0.9 L (1.0-4.8) k/uL Chloride (98-107) mmol/L BUN (7-17) mg/dL Glucose (74-99) mg/dL POC Glucose (mg/dL) 117 H (70-110) mg/dL Microbiology - Last 24 Hours (Table) 06/05/22 03:15 Blood Culture - Preliminary Blood No Growth after 48 hours 06/05/22 11:35 Gram Stain - Preliminary Other - Other Wound Culture - Preliminary Presumptive MRSA Assessment and Plan (1) Cellulitis of labia Current Visit: Yes Status: Acute Code(s): N76.2 - ACUTE VULVITIS SNOMED Code(s): 20239302 Plan: 1patient with left labial abscess and cellulitis likely from gram-positive skin dimitrios failing outpatient oral Keflex with a question of possible community associated MRSA 2culture has been obtained and further antibiotic therapy 3-patient evaluated by [facility] recommending no surgical drainage 4patient local cultures current growing presumptive MRSA for which the patient is covered with vancomycin to continue and monitor clinical course closely Time with Patient: Less than 30
[2022-06-07] MEDS: ACETAMINOPHEN TAB 325 MG TAB PO PRN (15:41)
[2022-06-07 17:19] LABS: Glucose,Whole Blood 130 mg/dL (70-110)
[2022-06-07] MEDS ORDERED: VANCOMYCIN TROUGH DUE 1 EACH MISC MISCELLANE ONE (18:00)
[2022-06-07] MEDS: SODIUM CHLORIDE 0.9% 1,000 ML IV SCH ×2 (18:40→20:40)
--- NOTE | 2022-06-07 20:13 | P.PN ---
Subjective Progress Note Date: 06/07/22 This is a pleasant 82-year-old female who presented to the emergency department with her son having left labia pain. Per son and patient, they recently went to an urgent care a few days ago and was started on oral Keflex and was instructed to follow-up with primary care provider. Per son the area of redness and pain has been worsening and he decided to bring her here for further evaluation. Patient also having some excoriation on her buttocks with no obvious ulcers just appears to be abrasions. Patient does wear a brief and is incontinent at times. Patient follows with Dr. Mckeon in the outpatient setting with a past medical history of atrial fibrillation, COPD, dementia, diabetes mellitus, GERD, hyperlipidemia, hypertension, memory impairment, osteoarthritis, hypothyroidism, and depression. Patient lives with son and he cares for her. Patient reports her pain is severe with light palpation and any movement. Patient underwent abdominal pelvis CT in the ER showing some sigmoid diverticulosis without diverticulitis and previous surgery of the right colon with no bowel obstruction noted there are some interstitial infiltrates and atelectasis at the lung bases with no evidence of a left groin abscess. Labs revealed on admission a WBC of 10.8, hemoglobin stable at 13.9, platelets 193, sodium 135, potassium 4.3, BUN 17, creatinine 0.61. Patient was started on antibiotics and given a dose of Zosyn along with vancomycin and admitted for left labial cellulitis. No consultations were placed in the ER and after evaluation the patient placed a consult to Gen. surgery along with infectious disease. General surgery recommends gynecology evaluation at this time. She does take Xarelto in the outpatient setting and did take her last dose yesterday evening on 06/04/2022. Will hold Xarelto for now in the event of any surgical intervention. Currently awaiting gynecology consult. 06/06/2022 Patient is seen and evaluated in follow-up today with infectious disease following. Gynecology Dr. Clarke evaluated the patient with no plans for surgical intervention at this time and recommend continuing with local wound care and antibiotics for extensive cellulitis of the left labia. Patient is afebrile. Cultures were obtained and awaiting finalized cultures to determine discharge antibiotics. Will obtain labial ultrasound which is pending at this time. Patient denies chest pain or shortness of breath and reports is tolerating diet. Patient does have history of dementia with concerns for developing hospital-acquired delirium will add low-dose Seroquel at night. 06/07/2022 Patient is evaluated today resting in bed, currently she is alert x 1 and significantly confused. Per patient she has not been up out of bed and was ambulating with a walker at home. PT/OT consultation in place. She is being treated with IV vancomycin for labial cellulitis wound culture showing MRSA and blood culture remains negative. Review of systems: Constitutional: No reports of fatigue, fever, or chills Cardiovascular: No reports of chest pain or palpitations Respiratory: No reports of shortness of breath or cough GI: No reports of nausea, vomiting, or diarrhea : No reports of dysuria or retention, patient is incontinent and reports severe left labial pain Neurovascular: No reports of weakness or numbness All medications have been reviewed PHYSICAL EXAMINATION: GENERAL: The patient is alert and oriented x1-2, Well developed, well nourished. Obese HEENT: Pupils are round and equally reacting to light. EOMI. no scleral icterus. No conjunctival pallor. Normocephalic, atraumatic. No pharyngeal erythema. No thyromegaly. CARDIOVASCULAR: S1 and S2 muffled PULMONARY: diminished breath sounds bilaterally with no wheezing or rhonchi noted. ABDOMEN: soft. Nontender on exam. obese. non-distended, normoactive bowel sounds. No palpable organomegaly. MUSCULOSKELETAL: No joint swelling or deformity. EXTREMITIES: No cyanosis, clubbing, or pedal edema. NEUROLOGICAL: Gross neurological examination did not reveal any focal deficits. Diffuse weakness Skin: Left labial erythema and induration with some dense tissue noted of the entire labia majora, extremely sensitive to light palpation with no obvious drainage noted Assessment: Left labial cellulitis with failure of outpatient treatment, not due to diabetes, showing MRSA on cultures Mild leukocytosis, possibly secondary to above History of atrial fibrillation COPD, not an exacerbation dementia Diabetes mellitus type 2, diet controlled GERD Hyperlipidemia Hypertension Osteoarthritis history Previous history of MRSA GI prophylaxis DVT prophylaxis Full code Plan: Recommend to continue with current medications and management of pain with infectious disease following for left labial cellulitis with failure of outpatient treatment. Patient is continued on vancomycin, cultures are finalized showing MRSA and pending final ID recommendations for discharge. Gynecology consulted and Dr. Clarke evaluated the patient recommending no surgical intervention and continuing with antibiotics and extensive hygiene and keeping the area clean and dry as much as possible. This is extremely difficult as patient is incontinent and wears a brief Xarelto has been resumed Continue local wound care and will await finalized cultures and discuss with infectious disease as presumptive MRSA is on the cultures currently Continue pain management, recommend to limit the use of narcotics as patient does have history of dementia and also elderly Recommend monitoring Accu-Cheks before meals and at bedtime. Patient does have history of diabetes although diet controlled and recommend consistent carb diet and will use sliding scale if needed Pending PT/OT consultation for DC planning while PT evaluation will be on thursday. The impression and plan of care has been dictated by Catherine Yee, Nurse Practitioner as directed. Dr. Nadia MD I have performed a history and physical examination and medical decision making of this patient, discussed the same with the dictator, and agree with the dictators assessment and plan as written, documented as a scribe. Based on total visit time, I have performed more than 50% of this visit. Objective - Vital Signs Vital signs: Vital Signs Temp 97.6 F 06/07/22 07:30 Pulse 63 06/07/22 07:30 Resp 16 06/07/22 07:30 BP 168/69 06/07/22 07:30 Pulse Ox 93 L 06/07/22 07:30 FiO2 Intake & Output 06/06/22 06/07/22 06/07/22 18:59 06:59 18:59 Intake Total 148 740 Output Total 350 Balance -202 740 Intake: Intake, IV Titration 500 Amount Vancomycin 1,500 mg In 500 Sodium Chloride 0.9% 500 ml 500 ml @ 167 mls/hr IVPB Q16H [facility] Rx#: [id number] Oral 148 240 Output: Urine 350 Other: Voiding Method External Catheter External Catheter - Labs CBC & Chem 7: 06/07/22 07:51 06/07/22 07:51 Labs: Abnormal Lab Results - Last 24 Hours (Table) 06/06/22 06/06/22 06/07/22 Range/Units 12:05 21:06 07:29 Lymphocytes # (1.0-4.8) k/uL Chloride (98-107) mmol/L BUN (7-17) mg/dL Glucose (74-99) mg/dL POC Glucose (mg/dL) 137 H 136 H 121 H (70-110) mg/dL 06/07/22 06/07/22 Range/Units 07:51 07:51 Lymphocytes # 0.9 L (1.0-4.8) k/uL Chloride 112 H (98-107) mmol/L BUN 18 H (7-17) mg/dL Glucose 104 H (74-99) mg/dL POC Glucose (mg/dL) (70-110) mg/dL Microbiology - Last 24 Hours (Table) 06/05/22 03:15 Blood Culture - Preliminary Blood No Growth after 48 hours 06/05/22 11:35 Gram Stain - Preliminary Other - Other Wound Culture - Preliminary Presumptive MRSA Assessment and Plan Time with Patient: Less than 30
[2022-06-07] MEDS: RIVAROXABAN 15 MG TAB PO SCH (20:40)
[2022-06-07] MEDS: PRAVASTATIN SODIUM 80 MG TAB PO SCH (20:40)
[2022-06-07] MEDS: SENNOSIDES-DOCUSATE SODIUM 1 EACH TAB PO SCH (20:40)
[2022-06-07] MEDS: QUEtiapine 25 MG TAB PO SCH (20:40)
[2022-06-07 20:47] LABS: Glucose,Whole Blood 127 mg/dL (70-110)
[2022-06-08 01:26] LABS: Appearance,Urine Clear (Clear); Bacteria,Urine Moderate /hpf; Bilirubin,Urine Negative (Negative); Blood,Urine Moderate (Negative); Color,Urine Colorless; Glucose,Urine (UA) Negative (Negative); Ketones,Urine Negative (Negative); Leukocyte Esterase,Urine Large (Negative); Mucus,Urine Rare /hpf; Nitrite,Urine Negative (Negative); PH, Urine 5.5 (5.0-8.0); Protein,Urine Negative (Negative); RBC,Urine 12 /hpf (0-5); Specific Gravity,Urine 1.009 (1.001-1.035); Squamous Epithelial Cell,Urine <1 /hpf (0-4); Urobilinogen,Urine <2.0 mg/dL (<2.0); WBC,Urine 42 /hpf (0-5)
[2022-06-08] MEDS: PANTOPRAZOLE 40 MG TABLET PO SCH ×2 (05:38→16:58)
[2022-06-08] MEDS: LEVOTHYROXINE 75 MCG TAB PO SCH (05:38)
[2022-06-08 06:04] LABS: Glucose,Whole Blood 107 mg/dL (70-110)
[2022-06-08] MEDS: DOCUSATE 100 MG CAP PO SCH (08:51)
[2022-06-08] MEDS: MULTIVITAMINS, THERA 1 EACH TAB PO SCH (08:51)
[2022-06-08] MEDS: LOSARTAN-HCTZ 50-12.5 MG 1 EACH TAB PO SCH (08:51)
[2022-06-08] MEDS: SOTALOL 80 MG TAB PO SCH ×2 (08:51→20:46)
[2022-06-08] MEDS: amLODIPine 10 MG TAB PO SCH (08:51)
[2022-06-08] MEDS: MEMANTINE 10 MG TAB PO SCH ×2 (08:52→20:46)
[2022-06-08] MEDS: LORATADINE 10 MG TAB PO SCH (08:52)
[2022-06-08] MEDS: DONEPEZIL 10 MG TAB PO SCH (08:52)
[2022-06-08] MEDS: NON FORMULARY DRUG (Mirabegron [Myrbetriq] 50 MG Tablet) PO SCH (08:52)
[2022-06-08] MEDS: VORTIOXETINE HYDROBROMIDE 20 MG TABLET PO SCH (08:52)
[2022-06-08] MEDS: FERROUS SULFATE 325 MG TAB PO SCH (08:52)
[2022-06-08] MEDS: CYANOCOBALAMIN 500 MCG TAB PO SCH (08:52)
[2022-06-08] MEDS: VANCOMYCIN 1,500 MG in SODIUM CHLORIDE 0.9% 500 ML 500 ML IVPB SCH (11:13)
[2022-06-08 12:02] LABS: Glucose,Whole Blood 119 mg/dL (70-110)
--- NOTE | 2022-06-08 16:33 | P.PN ---
Subjective Progress Note Date: 06/08/22 This is a pleasant 82-year-old female who presented to the emergency department with her son having left labia pain. Per son and patient, they recently went to an urgent care a few days ago and was started on oral Keflex and was instructed to follow-up with primary care provider. Per son the area of redness and pain has been worsening and he decided to bring her here for further evaluation. Patient also having some excoriation on her buttocks with no obvious ulcers just appears to be abrasions. Patient does wear a brief and is incontinent at times. Patient follows with Dr. Mckeon in the outpatient setting with a past medical history of atrial fibrillation, COPD, dementia, diabetes mellitus, GERD, hyperlipidemia, hypertension, memory impairment, osteoarthritis, hypothyroidism, and depression. Patient lives with son and he cares for her. Patient reports her pain is severe with light palpation and any movement. Patient underwent abdominal pelvis CT in the ER showing some sigmoid diverticulosis without diverticulitis and previous surgery of the right colon with no bowel obstruction noted there are some interstitial infiltrates and atelectasis at the lung bases with no evidence of a left groin abscess. Labs revealed on admission a WBC of 10.8, hemoglobin stable at 13.9, platelets 193, sodium 135, potassium 4.3, BUN 17, creatinine 0.61. Patient was started on antibiotics and given a dose of Zosyn along with vancomycin and admitted for left labial cellulitis. No consultations were placed in the ER and after evaluation the patient placed a consult to Gen. surgery along with infectious disease. General surgery recommends gynecology evaluation at this time. She does take Xarelto in the outpatient setting and did take her last dose yesterday evening on 06/04/2022. Will hold Xarelto for now in the event of any surgical intervention. Currently awaiting gynecology consult. 06/06/2022 Patient is seen and evaluated in follow-up today with infectious disease following. Gynecology Dr. Clarke evaluated the patient with no plans for surgical intervention at this time and recommend continuing with local wound care and antibiotics for extensive cellulitis of the left labia. Patient is afebrile. Cultures were obtained and awaiting finalized cultures to determine discharge antibiotics. Will obtain labial ultrasound which is pending at this time. Patient denies chest pain or shortness of breath and reports is tolerating diet. Patient does have history of dementia with concerns for developing hospital-acquired delirium will add low-dose Seroquel at night. 06/07/2022 Patient is evaluated today resting in bed, currently she is alert x 1 and significantly confused. Per patient she has not been up out of bed and was ambulating with a walker at home. PT/OT consultation in place. She is being treated with IV vancomycin for labial cellulitis wound culture showing MRSA and blood culture remains negative. 06/08/2022 Patient is evaluated ambulating in room with walker. She is more alert today she is alert x 2. Culture showing MRSA and continues on IV vancomycin with final antibiotic recommendations pending for DC. She will also need pt/ot evaluation for dc planning. No acute events overnight and currently denying pain. Afebrile and on room air. Review of systems: Constitutional: No reports of fatigue, fever, or chills Cardiovascular: No reports of chest pain or palpitations Respiratory: No reports of shortness of breath or cough GI: No reports of nausea, vomiting, or diarrhea : No reports of dysuria or retention, patient is incontinent and reports improvement in left labial pain Neurovascular: No reports of weakness or numbness All medications have been reviewed PHYSICAL EXAMINATION: GENERAL: The patient is alert and oriented x2, Well developed, well nourished. Obese HEENT: Pupils are round and equally reacting to light. EOMI. no scleral icterus. No conjunctival pallor. Normocephalic, atraumatic. No pharyngeal erythema. No thyromegaly. CARDIOVASCULAR: S1 and S2 muffled PULMONARY: diminished breath sounds bilaterally with no wheezing or rhonchi noted. ABDOMEN: soft. Nontender on exam. obese. non-distended, normoactive bowel sounds. No palpable organomegaly. MUSCULOSKELETAL: No joint swelling or deformity. EXTREMITIES: No cyanosis, clubbing, or pedal edema. NEUROLOGICAL: Gross neurological examination did not reveal any focal deficits. Diffuse weakness Skin: Left labial erythema and induration with some dense tissue noted of the entire labia majora, extremely sensitive to light palpation with no obvious drainage noted Assessment: Left labial cellulitis with failure of outpatient treatment, not due to willem betyanci, showing MRSA on cultures Mild leukocytosis, possibly secondary to above History of atrial fibrillation COPD, not an exacerbation dementia Diabetes mellitus type 2, diet controlled GERD Hyperlipidemia Hypertension Osteoarthritis history Previous history of MRSA GI prophylaxis DVT prophylaxis on xarelto Full code Plan: Recommend to continue with current medications and management of pain with infectious disease following for left labial cellulitis with failure of outpatient treatment. Gynecology consulted and Dr. Clarke evaluated the patient recommending no surgical intervention and continuing with antibiotics and extensive hygiene and keeping the area clean and dry as much as possible. This is extremely difficult as patient is incontinent and wears a brief Continue local wound care with wound cultures showing MRSA. Infectious disease following with final abx recommendations for dc planning. Continue pain management, recommend to limit the use of narcotics as patient does have history of dementia and also elderly Recommend monitoring Accu-Cheks before meals and at bedtime. Patient does have history of diabetes although diet controlled and recommend consistent carb diet and will use sliding scale if needed Pending PT/OT consultation for DC planning while PT evaluation will be on thursday. The impression and plan of care has been dictated by Catherine Yee Nurse Practitioner as directed. Dr. Nadia MD I have performed a history and physical examination and medical decision making of this patient, discussed the same with the dictator, and agree with the dictators assessment and plan as written, documented as a scribe. Based on total visit time, I have performed more than 50% of this visit. Objective - Vital Signs Vital signs: Vital Signs Temp 98.1 F 06/08/22 07:00 Pulse 61 06/08/22 08:00 Resp 16 06/08/22 08:00 BP 150/80 06/08/22 07:00 Pulse Ox 92 L 06/08/22 07:00 FiO2 Intake & Output 06/07/22 06/08/22 06/08/22 18:59 06:59 18:59 Intake Total 336 100 118 Output Total 700 700 Balance -364 -600 118 Intake: Oral 336 100 118 Output: Urine 700 700 Other: Voiding Method External Catheter External Catheter External Catheter # Bowel Movements 1 - Labs CBC & Chem 7: 06/07/22 07:51 06/07/22 07:51 Labs: Abnormal Lab Results - Last 24 Hours (Table) 06/07/22 06/07/22 06/07/22 Range/Units 12:23 17:18 20:45 POC Glucose (mg/dL) 117 H 130 H 127 H (70-110) mg/dL Urine Blood (Negative) Ur Leukocyte Esterase (Negative) Urine RBC (0-5) /hpf Urine WBC (0-5) /hpf Urine WBC Clumps (None) /hpf Urine Bacteria (None) /hpf Urine Mucus (None) /hpf 06/08/22 Range/Units 01:08 POC Glucose (mg/dL) (70-110) mg/dL Urine Blood Moderate H (Negative) Ur Leukocyte Esterase Large H (Negative) Urine RBC 12 H (0-5) /hpf Urine WBC 42 H (0-5) /hpf Urine WBC Clumps Few H (None) /hpf Urine Bacteria Moderate H (None) /hpf Urine Mucus Rare H (None) /hpf Microbiology - Last 24 Hours (Table) 06/05/22 03:15 Blood Culture - Preliminary Blood No Growth after 72 hours 06/05/22 11:35 Anaerobic Culture - Preliminary Labia 06/05/22 11:35 Gram Stain - Final Other - Other Wound Culture - Final Methicillin resist S. aureus Assessment and Plan Time with Patient: Less than 30
[2022-06-08 17:19] LABS: Glucose,Whole Blood 162 mg/dL (70-110)
[2022-06-08 20:43] LABS: Glucose,Whole Blood 132 mg/dL (70-110)
[2022-06-08] MEDS: QUEtiapine 25 MG TAB PO SCH (20:45)
[2022-06-08] MEDS: PRAVASTATIN SODIUM 80 MG TAB PO SCH (20:45)
[2022-06-08] MEDS: RIVAROXABAN 15 MG TAB PO SCH (20:46)
[2022-06-08] MEDS: SENNOSIDES-DOCUSATE SODIUM 1 EACH TAB PO SCH (20:46)
--- NOTE | 2022-06-08 22:39 | P.PN ---
Subjective Progress Note Date: 06/08/22 Principal diagnosis: Left labial abscess and cellulitis Patient is a 82-year-old female who was brought into the hospital for evaluation of left labial pain swelling and redness failing outpatient oral Keflex therapy see the abdominal pelvis did not show any evidence of any abscess patient was evaluated by MOUNTING MACHINE OPERATOR recommending no surgical drainage. on today's evaluation of that is 06/08/2022, the patient continues to be afebrile, the patient is breathing comfortably on room air, the patient denies having any chest or cough no abdominal pain, the patient pain to the pelvic area has decreased intensity, no nausea no vomiting or diarrhea has been reported by the staff Objective - Vital Signs Vital signs: Vital Signs Temp 97.8 F 06/08/22 14:00 Pulse 65 06/08/22 14:00 Resp 16 06/08/22 14:00 BP 148/68 06/08/22 14:00 Pulse Ox 92 L 06/08/22 14:00 FiO2 Intake & Output 06/07/22 06/08/22 06/08/22 18:59 06:59 18:59 Intake Total 336 100 236 Output Total 700 700 750 Balance -364 -600 -514 Intake: Oral 336 100 236 Output: Urine 700 700 750 Other: Voiding Method External Catheter External Catheter External Catheter # Bowel Movements 1 - Exam GENERAL DESCRIPTION: An elderly male lying in bed in no distress RESPIRATORY SYSTEM: Unlabored breathing , decreased breath sounds at bases HEART: S1 S2 regular rate and rhythm , ABDOMEN: Soft , no tenderness : Left labial swelling and redness but no purulent drainage per the nursing staff EXTREMITIES: No edema feet - Labs CBC & Chem 7: 06/07/22 07:51 06/07/22 07:51 Labs: Abnormal Lab Results - Last 24 Hours (Table) 06/07/22 06/08/22 06/08/22 Range/Units 20:45 01:08 12:01 POC Glucose (mg/dL) 127 H 119 H (70-110) mg/dL Urine Blood Moderate H (Negative) Ur Leukocyte Esterase Large H (Negative) Urine RBC 12 H (0-5) /hpf Urine WBC 42 H (0-5) /hpf Urine WBC Clumps Few H (None) /hpf Urine Bacteria Moderate H (None) /hpf Urine Mucus Rare H (None) /hpf 06/08/22 Range/Units 17:18 POC Glucose (mg/dL) 162 H (70-110) mg/dL Urine Blood (Negative) Ur Leukocyte Esterase (Negative) Urine RBC (0-5) /hpf Urine WBC (0-5) /hpf Urine WBC Clumps (None) /hpf Urine Bacteria (None) /hpf Urine Mucus (None) /hpf Microbiology - Last 24 Hours (Table) 06/08/22 01:08 Urine Culture - Preliminary Urine,Voided 06/05/22 03:15 Blood Culture - Preliminary Blood No Growth after 72 hours 06/05/22 11:35 Anaerobic Culture - Preliminary Labia 06/05/22 11:35 Gram Stain - Final Other - Other Wound Culture - Final Methicillin resist S. aureus Assessment and Plan (1) Cellulitis of labia Current Visit: Yes Status: Acute Code(s): N76.2 - ACUTE VULVITIS SNOMED Code(s): 82754893 Plan: 1patient with left labial abscess and cellulitis likely from gram-positive skin dimitrios failing outpatient oral Keflex with a question of possible community associated MRSA 2culture has been obtained and further antibiotic therapy 3-patient evaluated by MOUNTING MACHINE OPERATOR recommending no surgical drainage 4patient local cultures current growing presumptive MRSA with sensitivities pending patient seemed to have Some Clinical Improvement and Will Continue with vancomycin to continue and monitor clinical course closely Son at the bedside questions and concerns were answered Time with Patient: Less than 30
[2022-06-09] MEDS ORDERED: QUEtiapine 25 MG TAB PO STA (01:27)
[2022-06-09] MEDS: VANCOMYCIN 1,500 MG in SODIUM CHLORIDE 0.9% 500 ML 500 ML IVPB SCH ×2 (02:35→18:42)
[2022-06-09 05:40] LABS: African American GFR (CKD) >90 (>60 ml/min/1.73 sqM); Non-African American GFR(CKD) 84 (>60 ml/min/1.73 sqM)
[2022-06-09] MEDS: VORTIOXETINE HYDROBROMIDE 20 MG TABLET PO SCH (11:10)
[2022-06-09] MEDS: LOSARTAN-HCTZ 50-12.5 MG 1 EACH TAB PO SCH (11:11)
[2022-06-09] MEDS: MEMANTINE 10 MG TAB PO SCH ×2 (11:11→20:39)
[2022-06-09] MEDS: FERROUS SULFATE 325 MG TAB PO SCH (11:11)
[2022-06-09] MEDS: DONEPEZIL 10 MG TAB PO SCH (11:11)
[2022-06-09] MEDS: CYANOCOBALAMIN 500 MCG TAB PO SCH (11:11)
[2022-06-09] MEDS: LORATADINE 10 MG TAB PO SCH (11:11)
[2022-06-09] MEDS: PANTOPRAZOLE 40 MG TABLET PO SCH ×2 (11:11→17:47)
[2022-06-09] MEDS: MULTIVITAMINS, THERA 1 EACH TAB PO SCH (11:12)
[2022-06-09] MEDS: SOTALOL 80 MG TAB PO SCH ×2 (11:13→20:39)
[2022-06-09] MEDS: NON FORMULARY DRUG (Mirabegron [Myrbetriq] 50 MG Tablet) PO SCH (11:14)
[2022-06-09] MEDS: DOCUSATE 100 MG CAP PO SCH (11:14)
[2022-06-09] MEDS: amLODIPine 10 MG TAB PO SCH (11:14)
[2022-06-09] MEDS: LEVOTHYROXINE 125 MCG TAB PO SCH (11:51)
[2022-06-09 12:51] LABS: Glucose,Whole Blood 124 mg/dL (70-110)
[2022-06-09 17:02] LABS: Glucose,Whole Blood 153 mg/dL (70-110)
[2022-06-09 20:06] VITALS: RESP 17
[2022-06-09] MEDS: RIVAROXABAN 15 MG TAB PO SCH (20:39)
[2022-06-09] MEDS: PRAVASTATIN SODIUM 80 MG TAB PO SCH (20:39)
[2022-06-09] MEDS: SODIUM CHLORIDE 0.9% 1,000 ML IV SCH (20:39)
[2022-06-09] MEDS: SENNOSIDES-DOCUSATE SODIUM 1 EACH TAB PO SCH (20:39)
[2022-06-09] MEDS: QUEtiapine 25 MG TAB PO SCH (20:39)
[2022-06-09 20:42] LABS: Glucose,Whole Blood 131 mg/dL (70-110)
--- NOTE | 2022-06-09 20:42 | P.PN ---
Subjective Progress Note Date: 06/09/22 Principal diagnosis: Left labial abscess and cellulitis Patient is a 82-year-old female who was brought into the hospital for evaluation of left labial pain swelling and redness failing outpatient oral Keflex therapy see the abdominal pelvis did not show any evidence of any abscess patient was evaluated by ROTOR BALANCER recommending no surgical drainage. on today's evaluation of that is 06/09/2022, the patient remains to be afebrile, the patient is breathing comfortably on room air, the patient denies having any chest or cough no abdominal pain, the patient pain to the pelvic area has decreased intensity, no nausea no vomiting or diarrhea or any other changes reported by the nursing staff Objective - Vital Signs Vital signs: Vital Signs Temp 97.5 F L 06/09/22 07:51 Pulse 75 06/09/22 07:51 Resp 18 06/09/22 07:51 BP 185/72 06/09/22 07:51 Pulse Ox 95 06/09/22 07:51 FiO2 Intake & Output 06/08/22 06/09/22 06/09/22 18:59 06:59 18:59 Intake Total 354 500 Output Total 750 400 Balance -396 100 Intake: Intake, IV Titration 500 Amount Vancomycin 1,500 mg In 500 Sodium Chloride 0.9% 500 ml 500 ml @ 167 mls/hr IVPB Q16H [facility] Rx#: [id number] Oral 354 Output: Urine 750 400 Other: Voiding Method External Catheter External Catheter External Catheter - Exam GENERAL DESCRIPTION: An elderly male lying in bed in no distress RESPIRATORY SYSTEM: Unlabored breathing , decreased breath sounds at bases HEART: S1 S2 regular rate and rhythm , ABDOMEN: Soft , no tenderness : Left labial swelling and redness as well as induration has decreased EXTREMITIES: No edema feet - Labs CBC & Chem 7: 06/07/22 07:51 06/09/22 05:04 Labs: Abnormal Lab Results - Last 24 Hours (Table) 06/08/22 06/08/22 06/08/22 Range/Units 12:01 17:18 20:38 POC Glucose (mg/dL) 119 H 162 H 132 H (70-110) mg/dL Microbiology - Last 24 Hours (Table) 06/05/22 03:15 Blood Culture - Preliminary Blood No Growth after 96 hours 06/08/22 01:08 Urine Culture - Preliminary Urine,Voided Assessment and Plan (1) Cellulitis of labia Current Visit: Yes Status: Acute Code(s): N76.2 - ACUTE VULVITIS SNOMED Code(s): 41553520 Plan: 1patient with left labial abscess and cellulitis likely from gram-positive skin dimitrios failing outpatient oral Keflex with a question of possible community associated MRSA 2culture has been obtained and further antibiotic therapy 3-patient evaluated by ROTOR BALANCER recommending no surgical drainage 4patient local cultures grew MRSA unfortunately the patient is ALLERGIC to tetracycline and sulfa. Unable to use oral Zyvox because of the other medication patient is on the patient may need a PICC line and a short course of IV vancomycin on discharge discussed with the admitting team Time with Patient: Less than 30
--- NOTE | 2022-06-10 03:27 | P.PN ---
Subjective Progress Note Date: 06/09/22 This is a pleasant 82-year-old female who presented to the emergency department with her son having left labia pain. Per son and patient, they recently went to an urgent care a few days ago and was started on oral Keflex and was instructed to follow-up with primary care provider. Per son the area of redness and pain has been worsening and he decided to bring her here for further evaluation. Patient also having some excoriation on her buttocks with no obvious ulcers just appears to be abrasions. Patient does wear a brief and is incontinent at times. Patient follows with Dr. Mckeon in the outpatient setting with a past medical history of atrial fibrillation, COPD, dementia, diabetes mellitus, GERD, hyperlipidemia, hypertension, memory impairment, osteoarthritis, hypothyroidism, and depression. Patient lives with son and he cares for her. Patient reports her pain is severe with light palpation and any movement. Patient underwent abdominal pelvis CT in the ER showing some sigmoid diverticulosis without diverticulitis and previous surgery of the right colon with no bowel obstruction noted there are some interstitial infiltrates and atelectasis at the lung bases with no evidence of a left groin abscess. Labs revealed on admission a WBC of 10.8, hemoglobin stable at 13.9, platelets 193, sodium 135, potassium 4.3, BUN 17, creatinine 0.61. Patient was started on antibiotics and given a dose of Zosyn along with vancomycin and admitted for left labial cellulitis. No consultations were placed in the ER and after evaluation the patient placed a consult to Gen. surgery along with infectious disease. General surgery recommends gynecology evaluation at this time. She does take Xarelto in the outpatient setting and did take her last dose yesterday evening on 06/04/2022. Will hold Xarelto for now in the event of any surgical intervention. Currently awaiting gynecology consult. 06/06/2022 Patient is seen and evaluated in follow-up today with infectious disease following. Gynecology Dr. Clarke evaluated the patient with no plans for surgical intervention at this time and recommend continuing with local wound care and antibiotics for extensive cellulitis of the left labia. Patient is afebrile. Cultures were obtained and awaiting finalized cultures to determine discharge antibiotics. Will obtain labial ultrasound which is pending at this time. Patient denies chest pain or shortness of breath and reports is tolerating diet. Patient does have history of dementia with concerns for developing hospital-acquired delirium will add low-dose Seroquel at night. 06/07/2022 Patient is evaluated today resting in bed, currently she is alert x 1 and significantly confused. Per patient she has not been up out of bed and was ambulating with a walker at home. PT/OT consultation in place. She is being treated with IV vancomycin for labial cellulitis wound culture showing MRSA and blood culture remains negative. 06/08/2022 Patient is evaluated ambulating in room with walker. She is more alert today she is alert x 2. Culture showing MRSA and continues on IV vancomycin with final antibiotic recommendations pending for DC. She will also need pt/ot evaluation for dc planning. No acute events overnight and currently denying pain. Afebrile and on room air. 06/09/2022 Patient seen and evaluated in follow-up with son at the bedside who is her caregiver. Patient is lethargic although arousable continues with some weakness. Physical therapy evaluated the patient recommending possible subacute rehab versus home care. Son would like to take the patient home and is agreeable to some Homecare. Initially discharging on antibiotics although with ALLERGIES to doxycycline have discussed with infectious disease and patient may require IV antibiotics in the form of vancomycin. Urine culture was done the other day also preliminary showing some gram-negative bacilli and infectious disease recommended waiting for finalized cultures to determine if additional antibiotics are required. Patient continues with incontinence and some breakdown noted on the buttocks with barrier cream being used. Recommend offloading and frequent position changes. This was discussed with the son at the bedside as well. Patient is afebrile with no reports of chest pain or p alpitations noted. Denies any shortness of breath. Review of systems: Constitutional: reports of fatigue, no fever, or chills Cardiovascular: No reports of chest pain or palpitations Respiratory: No reports of shortness of breath or cough GI: No reports of nausea, vomiting, or diarrhea : No reports of dysuria or retention, patient is incontinent Neurovascular: No reports of weakness or numbness All medications have been reviewed PHYSICAL EXAMINATION: GENERAL: The patient is alert and oriented x2, Well developed, well nourished. Obese HEENT: Pupils are round and equally reacting to light. EOMI. no scleral icterus. No conjunctival pallor. Normocephalic, atraumatic. No pharyngeal erythema. No thyromegaly. CARDIOVASCULAR: S1 and S2 muffled PULMONARY: diminished breath sounds bilaterally with no wheezing or rhonchi noted. ABDOMEN: soft. Nontender on exam. obese. non-distended, normoactive bowel sounds. No palpable organomegaly. MUSCULOSKELETAL: No joint swelling or deformity. EXTREMITIES: No cyanosis, clubbing, or pedal edema. NEUROLOGICAL: Gross neurological examination did not reveal any focal deficits. Diffuse weakness Skin: Left labial erythema and induration with some dense tissue noted of the entire labia majora, extremely sensitive to light palpation with no obvious drainage noted Assessment: Left labial cellulitis with failure of outpatient treatment, not due to diabetes, showing MRSA on cultures, most likely due to urinary incontinence Mild leukocytosis, possibly secondary to above Possible acute urinary tract infection, present on admission History of atrial fibrillation COPD, not an exacerbation dementia Diabetes mellitus type 2, diet controlled GERD Hyperlipidemia Hypertension Osteoarthritis history Previous history of MRSA GI prophylaxis DVT prophylaxis Full code Plan: Recommend to continue with current medications and management of pain with infectious disease following for left labial cellulitis with failure of outpatient treatment. Patient is continued on vancomycin while awaiting for cultures, cultures showing presumptive MRSA and initially recommending a oral antibiotics although with patient's ALLERGIES and interactions to other medications patient may require IV antibiotics in the form of vancomycin with a PICC line. Urine culture showing preliminary gram-negative bacilli and infectious disease following recommending awaiting cultures Gynecology consulted and Dr. Clarke evaluated the patient recommending no hayes rgical intervention and continuing with antibiotics and extensive hygiene and keeping the area clean and dry as much as possible. This is extremely difficult as patient is incontinent and wears a brief Recommend repeat labs and monitoring kidney functions closely Continue local wound care and will await finalized cultures and discuss with infectious disease about discharge antibiotic recommendations Recommend monitoring Accu-Cheks before meals and at bedtime. Patient does have history of diabetes although diet controlled and recommend consistent carb diet and will use sliding scale if needed Possible discharge in the next 24-48 hours The impression and plan of care has been dictated by Sabine Burch, nurse practitioner as directed. Dr. Nadia MITCHELL I have performed a history and examination and MDM of this patient, discussed the same with the dictator, and agree with the dictator's assessment and plan as written ,documented as a scribe. Based on total visit time, I have performed more than 50% of the visit. Any additional findings or plans will be noted. Objective - Vital Signs Vital signs: Vital Signs Temp 97.5 F L 06/09/22 07:51 Pulse 75 06/09/22 07:51 Resp 18 06/09/22 07:51 BP 185/72 06/09/22 07:51 Pulse Ox 95 06/09/22 07:51 FiO2 Intake & Output 06/08/22 06/09/22 06/09/22 18:59 06:59 18:59 Intake Total 354 500 Output Total 750 400 Balance -396 100 Intake: Intake, IV Titration 500 Amount Vancomycin 1,500 mg In 500 Sodium Chloride 0.9% 500 ml 500 ml @ 167 mls/hr IVPB Q16H [facility] Rx#: [id number] Oral 354 Output: Urine 750 400 Other: Voiding Method External Catheter External Catheter External Catheter - Labs CBC & Chem 7: 06/07/22 07:51 06/09/22 05:04 Labs: Abnormal Lab Results - Last 24 Hours (Table) 06/08/22 06/08/22 06/08/22 Range/Units 12:01 17:18 20:38 POC Glucose (mg/dL) 119 H 162 H 132 H (70-110) mg/dL Microbiology - Last 24 Hours (Table) 06/05/22 03:15 Blood Culture - Preliminary Blood No Growth after 96 hours 06/08/22 01:08 Urine Culture - Preliminary Urine,Voided
[2022-06-10] MEDS: LEVOTHYROXINE 75 MCG TAB PO SCH (05:43)
[2022-06-10] MEDS: PANTOPRAZOLE 40 MG TABLET PO SCH (05:44)
[2022-06-10 07:03] LABS: Glucose,Whole Blood 102 mg/dL (70-110)
[2022-06-10] MEDS: amLODIPine 10 MG TAB PO SCH (08:50)
[2022-06-10] MEDS: FERROUS SULFATE 325 MG TAB PO SCH (08:51)
[2022-06-10] MEDS: MULTIVITAMINS, THERA 1 EACH TAB PO SCH (08:51)
[2022-06-10] MEDS: DONEPEZIL 10 MG TAB PO SCH (08:51)
[2022-06-10] MEDS: LORATADINE 10 MG TAB PO SCH (08:51)
[2022-06-10] MEDS: CYANOCOBALAMIN 500 MCG TAB PO SCH (08:51)
[2022-06-10] MEDS: LOSARTAN-HCTZ 50-12.5 MG 1 EACH TAB PO SCH (08:51)
[2022-06-10] MEDS: DOCUSATE 100 MG CAP PO SCH (08:51)
[2022-06-10] MEDS: SOTALOL 80 MG TAB PO SCH (08:52)
[2022-06-10] MEDS: MEMANTINE 10 MG TAB PO SCH (08:52)
[2022-06-10] MEDS: VORTIOXETINE HYDROBROMIDE 20 MG TABLET PO SCH (08:52)
[2022-06-10] MEDS: NON FORMULARY DRUG (Mirabegron [Myrbetriq] 50 MG Tablet) PO SCH (09:59)
[2022-06-10] MEDS ORDERED: VANCOMYCIN TROUGH DUE 1 EACH MISC MISCELLANE ONE (10:00)
[2022-06-10 10:03] LABS: African American GFR (CKD) >90 (>60 ml/min/1.73 sqM); Anion Gap 1 mmol/L; Blood Urea Nitrogen 15 mg/dL (7-17); Calcium 9.2 mg/dL (8.4-10.2); Carbon Dioxide 30 mmol/L (22-30); Chloride 108 mmol/L (98-107); Glucose 102 mg/dL (74-99); Non-African American GFR(CKD) 81 (>60 ml/min/1.73 sqM); Potassium 3.4 mmol/L (3.5-5.1); Sodium 139 mmol/L (137-145)
[2022-06-10] MEDS: VANCOMYCIN 1,500 MG in SODIUM CHLORIDE 0.9% 500 ML 500 ML IVPB SCH (10:57)
[2022-06-10] MEDS: ACETAMINOPHEN TAB 325 MG TAB PO PRN (10:57)
[2022-06-10 12:55] LABS: Glucose,Whole Blood 136 mg/dL (70-110)
[2022-06-10 15:29] VITALS: BP 148/67; PULSE 65; TEMP 97.8
--- NOTE | 2022-06-11 16:22 | P.DS ---
Providers Date of admission: 06/06/22 11:12 Expected date of discharge: 06/09/22 Attending physician: Awilda Vaughan Consults: 06/05/22 10:54 Consult Physician Routine Consulting Provider: Cindy Bella Consult Reason/Comments: Labial abscess Do you want consulting provider notified?: Yes 06/05/22 12:16 Consult Physician Urgent Consulting Provider: Alex Clarke Consult Reason/Comments: left labial abscess Do you want consulting provider notified?: Yes Primary care physician: Maryann Mckeon Hospital Course: Final diagnosis Left labial cellulitis with failure of outpatient treatment, not due to diabetes, showing MRSA on cultures, most likely due to urinary incontinence Mild leukocytosis, possibly secondary to above Possible acute urinary tract infection, present on admission, ruled out, suspicion is low as patient is completely asymptomatic denies any burning or pain with urination, most likely asymptomatic bacteriuria History of atrial fibrillation COPD, not an exacerbation dementia Diabetes mellitus type 2, diet controlled GERD Hyperlipidemia Hypertension Osteoarthritis history Previous history of MRSA GI prophylaxis DVT prophylaxis Full code Discharge disposition Patient is being discharged in a stable condition with guarded prognosis to home with home care. Patient will follow-up with Dr. Mckeon in the outpatient setting upon discharge. Patient is to follow-up with infectious disease Dr. Bella as scheduled. Patient received a midline and will continue with IV daptomycin on discharge for a minimum of 7-10 days with close outpatient follow- up. Total time taken is greater than 35 minutes. Hospital course This is a 82-year-old female who was recently admitted with left labial cellulitis with severe pain. Patient son brought her to an urgent care and was started on Keflex although continue with worsening pain in the left labial area became more cellulitic and indurated with no drainage noted. Patient was brought here and evaluated by gynecology with no plans for surgical intervention recommending to continue with wound care and strict hygiene along with IV antibiotics. Patient's culture did show MRSA. Patient also with some increased confusion had urinalysis performed which was showing Proteus mirabilis although patient having no symptoms of urinary tract infection denies any burning or pain with urination. Most likely asymptomatic bacteriuria. Patient only reporting pain on the left labia and sensitivity. Patient also with some skin breakdown of her bilateral buttock appears excoriated due to incontinence. Patient will receive a midline and continue on daptomycin for a period of 7-10 days initially and will follow-up with infectious disease to discuss requiring any further antibiotics. Patient was seen and evaluated by PT/OT therapy recommending rehab although family would like to take the patient home and has care they can provide. Patient has been cleared by consultations for discharge today. Currently no reports of chest pain, shortness of breath, or palpitations. Patient is afebrile. No reports of nausea or vomiting and patient is tolerating diet. Patient will be discharged home today. Guarded prognosis and high risk for readmissions. Physical exam: Gen: This is a 82-year-old female who is awake, alert and oriented 2-3, chronically confused with dementia, well-developed, well-nourished, obese HEENT: Head is atraumatic, normocephalic. Pupils equal, round. Sclerae is anicteric. NECK: Supple. No JVD. No lymphadenopathy. No thyromegaly. LUNGS: Clear to auscultation. No wheezes or rhonchi. No intercostal retractions. HEART: Regular rate and rhythm. No murmur. ABDOMEN: Soft. Bowel sounds are present. No masses. No tenderness. EXTREMITIES: No pedal edema. No calf tenderness. NEUROLOGICAL: Patient is awake, alert and oriented x3. Cranial nerves 2 through 12 are grossly intact. Diffusely weak Please refer to medication reconciliation sheet for a list of medications. The impression and plan of care has been dictated by Sabine Burch, Nurse Practitioner as directed. Dr. Nadia MD I have performed a history and examination and MDM of this patient, discussed the same with the dictator, and agree with the dictator's assessment and plan as written ,documented as a scribe. Based on total visit time, I have performed more than 50% of the visit. Patient Condition at Discharge: Good Plan - Discharge Summary Discharge Rx Participant: No New Discharge Prescriptions: New amLODIPine [Norvasc] 10 mg PO DAILY 30 Days #30 tab Continue Levothyroxine Sodium [Synthroid] 150 mcg PO SUTUWETHSA Pravastatin Sodium [Pravachol] 80 mg PO HS Sotalol [Betapace] 80 mg PO BID Multivitamins, Thera [Multivitamin (formulary)] 1 tab PO DAILY Ferrous Sulfate [Iron (65 MG Elemental)] 325 mg PO DAILY Losartan/Hydrochlorothiazide [Losartan-Hctz 100-25 mg Tab] 1 tab PO DAILY Donepezil [Aricept] 10 mg PO DAILY Memantine [Namenda] 10 mg PO BID Mirabegron [Myrbetriq] 50 mg PO DAILY Rivaroxaban [Xarelto] 15 mg PO HS Pantoprazole [Protonix] 40 mg PO BID Docusate [Colace] 100 mg PO DAILY Levothyroxine Sodium [Synthroid] 125 mcg PO MOFR Vortioxetine Hydrobromide [Trintellix] 20 mg PO DAILY Sennosides-Docusate Sodium [Senokot-S] 1 tab PO HS Cyanocobalamin [Vitamin B-12] 500 mcg PO DAILY Acetaminophen [Tylenol Extra Strength] 500 mg PO Q8HR PRN #30 tablet PRN Reason: Pain Loratadine [Claritin] 10 mg PO DAILY Nitroglycerin Sl Tabs [Nitrostat] 0.4 mg SUBLINGUAL Q5M PRN PRN Reason: Chest Pain Discontinued amLODIPine [Norvasc] 5 mg PO DAILY Cephalexin [Keflex] 500 mg PO Q6HR Discharge Medication List Levothyroxine Sodium [Synthroid] 150 mcg PO SUTUWETHSA 09/30/13 [History] Pravastatin Sodium [Pravachol] 80 mg PO HS 11/07/14 [History] Multivitamins, Thera [Multivitamin (formulary)] 1 tab PO DAILY 06/01/18 [History] Sotalol [Betapace] 80 mg PO BID 06/01/18 [History] Ferrous Sulfate [Iron (65 MG Elemental)] 325 mg PO DAILY 06/16/18 [History] Losartan/Hydrochlorothiazide [Losartan-Hctz 100-25 mg Tab] 1 tab PO DAILY 08/18/18 [History] Donepezil [Aricept] 10 mg PO DAILY 06/22/21 [History] Memantine [Namenda] 10 mg PO BID 06/22/21 [History] Mirabegron [Myrbetriq] 50 mg PO DAILY 06/22/21 [History] Sennosides-Docusate Sodium [Senokot-S] 1 tab PO HS 06/22/21 [History] Cyanocobalamin [Vitamin B-12] 500 mcg PO DAILY 07/16/21 [History] Rivaroxaban [Xarelto] 15 mg PO HS 07/16/21 [History] Pantoprazole [Protonix] 40 mg PO BID 02/23/22 [History] Acetaminophen [Tylenol Extra Strength] 500 mg PO Q8HR PRN #30 tablet 02/24/22 [ Rx] Docusate [Colace] 100 mg PO DAILY 06/05/22 [History] Levothyroxine Sodium [Synthroid] 125 mcg PO MOFR 06/05/22 [History] Loratadine [Claritin] 10 mg PO DAILY 06/05/22 [History] Nitroglycerin Sl Tabs [Nitrostat] 0.4 mg SUBLINGUAL Q5M PRN 06/05/22 [History] Vortioxetine Hydrobromide [Trintellix] 20 mg PO DAILY 06/05/22 [History] amLODIPine [Norvasc] 10 mg PO DAILY 30 Days #30 tab 06/09/22 [Rx] Follow up Appointment(s)/Referral(s): Maryann Mckeon DO [Primary Care Provider] - 1-2 days MID,Infusion [NON-STAFF] - As Needed Cindy Bella MD [STAFF PHYSICIAN] - 1 Week ([phone] please call his office at [facility] wound care to schedule an appointment) Patient Instructions/Handouts: MRSA (Methicillin-Resistant Staphylococcus Aureus) (DC) Activity/Diet/Wound Care/Special Instructions: [facility] will follow patient at home after outpatient antibiotics are done [facility] will call to schedule the antibiotic infusion in their office starting tomorrow (Thursday06.11.2022) They are located in the medical office building [address] [place] [address] 1st floor. Activity Limited until follow-up Follow-up with primary care provider on discharge Continue with wound care to the labial site and keep as dry as possible Continue using barrier cream to the bottom and offloading Frequent position changes when lying on rotating Discharge Disposition: HOME WITH HOME HEALTH SERVICES
--- NOTE | 2022-06-13 22:32 | P.PN ---
Subjective Progress Note Date: 06/10/22 Principal diagnosis: Left labial abscess and cellulitis Patient is a 82-year-old female who was brought into the hospital for evaluation of left labial pain swelling and redness failing outpatient oral Keflex therapy see the abdominal pelvis did not show any evidence of any abscess patient was evaluated by [employer] recommending no surgical drainage. on today's evaluation of that is 06/10/2022, the patient continues to be afebrile, the patient is breathing comfortably on room air, the patient denies having any chest or cough no abdominal pain, the patient pain to the pelvic area has decreased intensity, the patient denies nausea no vomiting or diarrhea Objective - Vital Signs Vital signs: Vital Signs Temp 97.9 F 06/10/22 07:47 Pulse 73 06/10/22 07:47 Resp 17 06/10/22 07:47 BP 167/70 06/10/22 07:47 Pulse Ox 94 L 06/10/22 07:47 FiO2 Intake & Output 06/09/22 06/10/22 06/10/22 18:59 06:59 18:59 Intake Total 500 Balance 500 Intake: Intake, IV Titration 500 Amount Vancomycin 1,500 mg In 500 Sodium Chloride 0.9% 500 ml 500 ml @ 167 mls/hr IVPB Q16H COUNTS INCLUDE 234 BEDS AT THE [facility] Rx#: [id number] Other: Voiding Method External Catheter External Catheter # Voids 1 - Exam GENERAL DESCRIPTION: An elderly male lying in bed in no distress RESPIRATORY SYSTEM: Unlabored breathing , decreased breath sounds at bases HEART: S1 S2 regular rate and rhythm , ABDOMEN: Soft , no tenderness : Left labial swelling and redness as well as induration has decreased EXTREMITIES: No edema feet - Labs CBC & Chem 7: 06/07/22 07:51 06/10/22 09:37 Labs: Abnormal Lab Results - Last 24 Hours (Table) 06/09/22 06/09/22 06/09/22 Range/Units 12:49 17:00 20:38 Potassium (3.5-5.1) mmol/L Chloride (98-107) mmol/L Glucose (74-99) mg/dL POC Glucose (mg/dL) 124 H 153 H 131 H (70-110) mg/dL 06/10/22 Range/Units 09:37 Potassium 3.4 L (3.5-5.1) mmol/L Chloride 108 H (98-107) mmol/L Glucose 102 H (74-99) mg/dL POC Glucose (mg/dL) (70-110) mg/dL Microbiology - Last 24 Hours (Table) 06/08/22 01:08 Urine Culture - Final Urine,Voided Proteus mirabilis 06/05/22 03:15 Blood Culture - Preliminary Blood No Growth after 120 hours 06/05/22 11:35 Anaerobic Culture - Final Labia Assessment and Plan (1) Cellulitis of labia Status: Acute Code(s): N76.2 - ACUTE VULVITIS SNOMED Code(s): 47685647 Plan: 1patient with left labial abscess and cellulitis likely from gram-positive skin dimitrios failing outpatient oral Keflex with a question of possible community associated MRSA 2culture has been obtained and further antibiotic therapy 3-patient evaluated by [employer] recommending no surgical drainage 4patient local cultures grew MRSA unfortunately the patient is ALLERGIC to tetracycline and sulfa. Unable to use oral Zyvox because of the other medication patient is on the patient did get a PICC line and antibiotic will be switched to daptomycin to decrease risk of nephrotoxicity associated with vancomycin in outpatient setting and the patient needs daily dosing as she has to go to the infusion clinic for infusion, prescription sent to the infusion clinic Time with Patient: Less than 30
== END 2022-06-10 16:30 | disposition home health service (06) | DRG 758 ==
LOC: EC 00:45 → 6NMEDSUR 04:10 → OBSVTOIN 06-06 11:12
PROVIDERS: ADMIT Hospitalist; ATTEND Hospitalist
PROC: 05HD33Z Insertion of Infusion Device into Right Cephalic Vein, Percutaneous Approach (ICD-10-PCS; principal; 2022-06-10 10:50)
DX: N76.2 Acute vulvitis (principal); F03.93 Unspecified dementia, unspecified severity, with mood disturbance; J98.11 Atelectasis; B95.62 Methicillin resistant Staphylococcus aureus infection as the cause of diseases classified elsewhere; J44.9 Chronic obstructive pulmonary disease, unspecified; E11.9 Type 2 diabetes mellitus without complications; E03.9 Hypothyroidism, unspecified; I48.91 Unspecified atrial fibrillation; Z28.310 Unvaccinated for COVID-19; R32 Unspecified urinary incontinence; R82.71 Bacteriuria; K21.9 Gastro-esophageal reflux disease without esophagitis; E78.5 Hyperlipidemia, unspecified; I10 Essential (primary) hypertension; I25.10 Atherosclerotic heart disease of native coronary artery without angina pectoris; N93.9 Abnormal uterine and vaginal bleeding, unspecified; M81.0 Age-related osteoporosis without current pathological fracture; S30.810A Abrasion of lower back and pelvis, initial encounter; I25.2 Old myocardial infarction; M19.90 Unspecified osteoarthritis, unspecified site; K57.30 Diverticulosis of large intestine without perforation or abscess without bleeding; Z79.890 Hormone replacement therapy; Z79.01 Long term (current) use of anticoagulants; Z79.899 Other long term (current) drug therapy; Z86.14 Personal history of Methicillin resistant Staphylococcus aureus infection; Z86.19 Personal history of other infectious and parasitic diseases; Z87.891 Personal history of nicotine dependence; Z95.5 Presence of coronary angioplasty implant and graft; Z96.641 Presence of right artificial hip joint; Z88.1 Allergy status to other antibiotic agents; Z88.5 Allergy status to narcotic agent; Z88.0 Allergy status to penicillin; Z88.2 Allergy status to sulfonamides; Z88.8 Allergy status to other drugs, medicaments and biological substances; Z91.018 Allergy to other foods
CPT/HCPCS: 36410; 36415; 74177; 76857; 76937; 80048; 80053; 80202; 81001; 82565; 83735; 85025; 87040; 87070; 87075; 87077; 87086; 87186; 87205; 96361; 96365; 96366; 96372; 96375; 99285

== ENCOUNTER 2022-08-06 01:13 | Inpatient (IN) | payer MEDICARE, BC ==
[2022-08-06 01:52] LABS: ALT 19 U/L (4-34); AST 27 U/L (14-36); African American GFR (CKD) >90 (>60 ml/min/1.73 sqM); Albumin 3.3 g/dL (3.5-5.0); Alkaline Phosphatase 66 U/L (38-126); Anion Gap 5 mmol/L; Blood Urea Nitrogen 16 mg/dL (7-17); Calcium 8.2 mg/dL (8.4-10.2); Carbon Dioxide 25 mmol/L (22-30); Chloride 105 mmol/L (98-107); Glucose 98 mg/dL (74-99); Lipase 150 U/L (23-300); Magnesium 1.6 mg/dL (1.6-2.3); Non-African American GFR(CKD) 81 (>60 ml/min/1.73 sqM); Potassium 3.5 mmol/L (3.5-5.1); Sodium 135 mmol/L (137-145); Total Bilirubin 0.7 mg/dL (0.2-1.3); Total Protein 6.1 g/dL (6.3-8.2)
--- NOTE | 2022-08-06 01:56 | XR ---
EXAMINATION TYPE: XR chest 1V portable DATE OF EXAM: 08/06/2022 COMPARISON: 02/23/2022 HISTORY: Altered mental status. Confusion. TECHNIQUE: FINDINGS: There is some coarsening of interstitial markings. No heart failure. There are chest leads. There is poor inspiration. Bony thorax appears intact. IMPRESSION: Mild pulmonary fibrosis. Inspiration slightly decreased compared to old exam. No heart fa ilure.
[2022-08-06 02:08] LABS: Basophils # (A) 0.1 k/uL (0-0.2); Basophils % (A) 1 %; Eosinophils % (A) 0 %; HCT 39.1 % (34.0-46.0); HGB 13.4 gm/dL (11.4-16.0); Lymphocytes # (A) 0.8 k/uL (1.0-4.8); Lymphocytes % (A) 15 %; MCH 31.4 pg (25.0-35.0); MCHC 34.2 g/dL (31.0-37.0); MCV 91.7 fL (80.0-100.0); Monocytes # (A) 0.8 k/uL (0-1.0); Monocytes % (A) 16 %; Neutrophils # (A) 3.5 k/uL (1.3-7.7); Neutrophils % (A) 65 %; Platelet Count 145 k/uL (150-450); RBC 4.27 m/uL (3.80-5.40); WBC 5.4 k/uL (3.8-10.6)
[2022-08-06 02:19] LABS: INR 1.3 (<1.2); Partial Thromboplastin Time 35.3 sec (22.0-30.0); Prothrombin Time 13.4 sec (9.0-12.0)
[2022-08-06 02:49] LABS: Appearance,Urine Clear (Clear); Bacteria,Urine Occasional /hpf; Bilirubin,Urine Negative (Negative); Blood,Urine Negative (Negative); Color,Urine Yellow; Glucose,Urine (UA) Negative (Negative); Hyaline Casts,Urine 13 /lpf (0-2); Ketones,Urine Negative (Negative); Leukocyte Esterase,Urine Large (Negative); Mucus,Urine Many /hpf; Nitrite,Urine Negative (Negative); PH, Urine 5.5 (5.0-8.0); Protein,Urine Trace (Negative); RBC,Urine 2 /hpf (0-5); Specific Gravity,Urine 1.023 (1.001-1.035); Squamous Epithelial Cell,Urine 1 /hpf (0-4); Urobilinogen,Urine <2.0 mg/dL (<2.0); WBC,Urine 25 /hpf (0-5)
[2022-08-06] MEDS ORDERED: cefTRIAXone IN SWFI 1,000 MG/10 ML SYRINGE IVP STA (03:38)
[2022-08-06] MEDS ORDERED: NALOXONE 0.4 MG/ML 1 ML VIAL IV PRN (04:11)
--- NOTE | 2022-08-06 04:11 | ED ---
General Adult HPI - General Chief complaint: Fall Stated complaint: confusion,uti Time Seen by Provider: 08/06/22 01:14 Source: patient, EMS Mode of arrival: EMS Limitations: no limitations - History of Present Illness Initial comments: This is an 82-year-old female who presented to the emergency department for a reported fall and altered mental status. The patient was ANO times one and was confused on arrival. It was known that the patient did have some dementia at baseline however was more altered today. The patient was overall weak and did fall down while walking but only slid down and did not hit her head or lose consciousness. The patient on arrival could not provide any history and did not complain of any acute pain or distress. No family was present at the bedside initially on arrival and no further history could be obtained at this time. - Related Data Home Medications Medication Instructions Recorded Confirmed Levothyroxine Sodium [Synthroid] 150 mcg PO SUTUWETHSA 09/30/13 06/05/22 Pravastatin Sodium [Pravachol] 80 mg PO HS 11/07/14 06/05/22 Multivitamins, Thera [Multivitamin 1 tab PO DAILY 06/01/18 06/05/22 (formulary)] Sotalol [Betapace] 80 mg PO BID 06/01/18 06/05/22 Ferrous Sulfate [Iron (65 MG 325 mg PO DAILY 06/16/18 06/05/22 Elemental)] Losartan/Hydrochlorothiazide 1 tab PO DAILY 08/18/18 06/05/22 [Losartan-Hctz 100-25 mg Tab] Donepezil [Aricept] 10 mg PO DAILY 06/22/21 06/05/22 Memantine [Namenda] 10 mg PO BID 06/22/21 06/05/22 Mirabegron [Myrbetriq] 50 mg PO DAILY 06/22/21 06/05/22 Sennosides-Docusate Sodium 1 tab PO HS 06/22/21 06/05/22 [Senokot-S] Cyanocobalamin [Vitamin B-12] 500 mcg PO DAILY 07/16/21 06/05/22 Rivaroxaban [Xarelto] 15 mg PO HS 07/16/21 06/05/22 Pantoprazole [Protonix] 40 mg PO BID 02/23/22 06/05/22 Docusate [Colace] 100 mg PO DAILY 06/05/22 06/05/22 Levothyroxine Sodium [Synthroid] 125 mcg PO MOFR 06/05/22 06/05/22 Loratadine [Claritin] 10 mg PO DAILY 06/05/22 06/05/22 Nitroglycerin Sl Tabs [Nitrostat] 0.4 mg SUBLINGUAL Q5M PRN 06/05/22 06/05/22 Vortioxetine Hydrobromide 20 mg PO DAILY 06/05/22 06/05/22 [Trintellix] Previous Rx's Medication Instructions Recorded Acetaminophen [Tylenol Extra 500 mg PO Q8HR PRN #30 tablet 02/24/22 Strength] amLODIPine [Norvasc] 10 mg PO DAILY 30 Days #30 tab 06/09/22 Allergies Allergy/AdvReac Type Severity Reaction Status Date / Time azithromycin Allergy Rash/Hives Verified 06/05/22 08:29 [From Zithromax Z-Chau] codeine Allergy Unknown Verified 06/05/22 08:29 hydrochlorothiazide Allergy Unknown Verified 06/05/22 08:29 [From Dyazide] lincomycin HCl Allergy Unknown Verified 06/05/22 08:29 [From Lincocin] meperidine HCl [From Demerol] Allergy Unknown Verified 06/05/22 08:29 metronidazole [From Flagyl] Allergy Unknown Verified 06/05/22 08:29 Metronidazole HCl Allergy Unknown Verified 06/05/22 08:29 [From Flagyl] Penicillins Allergy Unknown Verified 06/05/22 08:29 Childhood [id number] Reductase Allergy Unknown Verified 06/05/22 08:29 Inhibitor Sulfa (Sulfonamide Allergy Unknown Verified 06/05/22 08:29 Antibiotics) tetracycline [Tetracycline] Allergy Unknown Verified 06/05/22 08:29 triamterene [From Dyazide] Allergy Unknown Verified 06/05/22 08:29 watermelon Allergy Swelling Verified 06/05/22 08:29 atorvastatin calcium AdvReac MUSCLE Verified 06/05/22 08:29 [From Lipitor] ACHES rosuvastatin calcium AdvReac MUSCLE Verified 06/05/22 08:29 [From Crestor] ACHES Review of Systems ROS Statement: Those systems with pertinent positive or pertinent negative responses have been documented in the HPI. Limitations: ROS unobtainable due to patients medical condition Past Medical History Past Medical History: Atrial Fibrillation, COPD, Dementia, Diabetes Mellitus, GERD/Reflux, Hyperlipidemia, Hypertension, Memory Impairment, Osteoarthritis (OA), Pneumonia, Thyroid Disorder Additional Past Medical History / Comment(s): Right hip infection w/wound vac in Jun.-tx. @[facility]-wound completely healed per son, SHINGLES TO RT FACE/EYE. diet controlled diabetes, osteoporosis, recent blood in stool,. ANEMIA WITH BLOOD TRANSFUSIONS. 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 Past Anesthesia/Blood Transfusion Reactions: No Reported Reaction Date of Last Stent Placement:: 2017 Past Psychological History: Unable to Obtain, Depression Smoking Status: Former smoker Past Alcohol Use History: None Reported Past Drug Use History: None Reported - Past Family History Daughter(s) Family Medical History: Cancer Father History Unknown: Yes Family Medical History: Hypertension Additional Family Medical History / Comment(s): BRAIN TUMOR Mother Family Medical History: Cancer General Exam Limitations: altered mental status General appearance: alert, in no apparent distress Head exam: Present: atraumatic, normocephalic, normal inspection Eye exam: Present: normal appearance, PERRL Pupils: Present: normal accommodation ENT exam: Present: normal exam, normal oropharynx, mucous membranes moist Neck exam: Present: normal inspection, full ROM Respiratory exam: Present: normal lung sounds bilaterally Cardiovascular Exam: Present: regular rate, normal rhythm, normal heart sounds GI/Abdominal exam: Present: soft, tenderness (Minor tenderness noted to the suprapubic region), normal bowel sounds Extremities exam: Present: normal inspection, full ROM Back exam: Present: normal inspection, full ROM Neurological exam: Present: alert, oriented X3, CN II-XII intact Psychiatric exam: Present: normal affect, normal mood Skin exam: Present: warm, dry Course Vital Signs 08/06/22 01:16 Pulse Rate 70 Respiratory 18 Rate Blood Pressure 153/76 O2 Sat by Pulse 97 Oximetry EKG Findings - EKG Comments: EKG Findings:: An EKG was obtained and was interpreted by myself showing a rate of 70, TX interval 151, QRS duration of 90 and QTC of 421. This EKG showed a normal sinus rhythm with no ST segment elevation or depression noted. Medical Decision Making - Medical Decision Making Was pt. sent in by a medical professional or institution ([facility] Contreras, LUBRICATING ENGINEER, urgent care, hospital, or halfway...) When possible be specific @ -No Did you speak to anyone other than the patient for history (EMS, parent, family, police, friend...)? What history was obtained from this source @ -Yes, EMS Did you review nursing and triage notes (agree or disagree)? Why? @ -I reviewed and agree with nursing and triage notes Were old charts reviewed (outside hosp., previous admission, EMS record, old EKG, old radiological studies, urgent care reports/EKG's, halfway records)? Report findings @ -No old charts were reviewed Differential Diagnosis (chest pain, altered mental status, abdominal pain women, abdominal pain men, vaginal bleeding, weakness, fever, dyspnea, syncope, headache, dizziness, GI bleed, back pain, seizure, CVA, palpatations, mental health)? @ -UTI, sepsis, pneumonia EKG interpreted by me (3pts min.). @ -As above X-rays interpreted by me (1pt min.). @ -Chest x-ray was obtained and was interpreted by myself showing no acute process or pneumonia noted. CT interpreted by me (1pt min.). @ -None done U/S interpreted by me (1pt. min.). @ -None done What testing was considered but not performed or refused? (CT, X-rays, U/S, l abs)? Why? @ -None What meds were considered but not given or refused? Why? @ -None Did you discuss the management of the patient with other professionals (professionals i.e. HARO[facility] Contreras, LUBRICATING ENGINEER, lab, RT, psych nurse, social science instructor, environmental services supervisor, teacher, certified juvenile probation officer, case briefer)? Give summary @ -Yes, admitting team, Benja Anglin Was smoking cessation discussed for >3mins.? @ -No Was critical care preformed (if so, how long)? @ -No Were there social determinants of health that impacted care today? How? (Homelessness, low income, unemployed, alcoholism, drug addiction, transportation, low edu. Level, literacy, decrease access to med. care, custodial, rehab)? @ -No Was there de-escalation of care discussed even if they declined (Discuss DNR or withdrawal of care, Hospice)? DNR status @ -No What co-morbidities impacted this encounter? (DM, HTN, Smoking, COPD, CAD, Cancer, CVA, ARF, Chemo, Hep., AIDS, mental health diagnosis, sleep apnea, morbid obesity)? @ -Dementia, atrial fibrillation, diabetes Was patient admitted / discharged? Hospital course, mention meds given and route, prescriptions, significant lab abnormalities, going to OR and other pertinent info. @ -The patient was seen and evaluated emergency department. Physical exam, the patient was resting in bed without any acute distress. The patient was altered, ANO times one. Laboratory workup was obtained that did show positive UTI. The patient did receive 1 g Rocephin. The patient's family was present at the bedside and did state that the patient was weak and could not and weight on her own therefore she could not be discharged home. Due to this, the patient will be placed in observation for further workup and evaluation and the patient's family was agreeable to this. The patient was placed in observation in stable condition. Undiagnosed new problem with uncertain prognosis? @ -No Drug Therapy requiring intensive monitoring for toxicity (Heparin, Nitro, Insulin, Cardizem)? @ -No Were any procedures done? @ -No Diagnosis/symptom? @ -UTI, weakness Acute, or Chronic, or Acute on Chronic? @ -Acute Uncomplicated (without systemic symptoms) or Complicated (systemic symptoms)? @ -Complicated Side effects of treatment? @ -No Exacerbation, Progression, or Severe Exacerbation? @ -No Poses a threat to life or bodily function? How? (Chest pain, [place], [place], pneumonia, PE, COPD, DKA, ARF, appy, cholecystitis, CVA, Diverticulitis, Homicidal, Suicidal, threat to staff... and all critical care pts) @ -Yes, UTI and weakness can cause multiple falls and possible permanent and significant damage and possible . - Lab Data Result diagrams: 08/06/22 01:25 08/06/22 01:25 Lab Results 08/06/22 08/06/22 08/06/22 Range/Units 01:25 01:25 01:25 WBC 5.4 (3.8-10.6) k/uL RBC 4.27 (3.80-5.40) m/uL Hgb 13.4 (11.4-16.0) gm/dL Hct 39.1 (34.0-46.0) % MCV 91.7 (80.0-100.0) fL MCH 31.4 (25.0-35.0) pg MCHC 34.2 (31.0-37.0) g/dL RDW 13.0 (11.5-15.5) % Plt Count 145 L (150-450) k/uL MPV 10.0 Neutrophils % 65 % Lymphocytes % 15 % Monocytes % 16 % Eosinophils % 0 % Basophils % 1 % Neutrophils # 3.5 (1.3-7.7) k/uL Lymphocytes # 0.8 L (1.0-4.8) k/uL Monocytes # 0.8 (0-1.0) k/uL Eosinophils # 0.0 (0-0.7) k/uL Basophils # 0.1 (0-0.2) k/uL PT 13.4 H (9.0-12.0) sec INR 1.3 H (<1.2) APTT 35.3 H (22.0-30.0) sec Sodium 135 L (137-145) mmol/L Potassium 3.5 (3.5-5.1) mmol/L Chloride 105 (98-107) mmol/L Carbon Dioxide 25 (22-30) mmol/L Anion Gap 5 mmol/L BUN 16 (7-17) mg/dL Creatinine 0.69 (0.52-1.04) mg/dL Est GFR (CKD-EPI)AfAm >90 (>60 ml/min/1.73 sqM) Est GFR (CKD-EPI)NonAf 81 (>60 ml/min/1.73 sqM) Glucose 98 (74-99) mg/dL Calcium 8.2 L (8.4-10.2) mg/dL Magnesium 1.6 (1.6-2.3) mg/dL Total Bilirubin 0.7 (0.2-1.3) mg/dL AST 27 (14-36) U/L ALT 19 (4-34) U/L Alkaline Phosphatase 66 (38-126) U/L Troponin I (0.000-0.034) ng/mL Total Protein 6.1 L (6.3-8.2) g/dL Albumin 3.3 L (3.5-5.0) g/dL Lipase 150 (23-300) U/L Urine Color Urine Appearance (Clear) Urine pH (5.0-8.0) Ur Specific Jennings (1.001-1.035) Urine Protein (Negative) Urine Glucose (UA) (Negative) Urine Ketones (Negative) Urine Blood (Negative) Urine Nitrite (Negative) Urine Bilirubin (Negative) Urine Urobilinogen (<2.0) mg/dL Ur Leukocyte Esterase (Negative) Urine RBC (0-5) /hpf Urine WBC (0-5) /hpf Urine WBC Clumps (None) /hpf Ur Squamous Epith Cells (0-4) /hpf Urine Bacteria (None) /hpf Hyaline Casts (0-2) /lpf Urine Mucus (None) /hpf 08/06/22 08/06/22 Range/Units 01:25 02:08 WBC (3.8-10.6) k/uL RBC (3.80-5.40) m/uL Hgb (11.4-16.0) gm/dL Hct (34.0-46.0) % MCV (80.0-100.0) fL MCH (25.0-35.0) pg MCHC (31.0-37.0) g/dL RDW (11.5-15.5) % Plt Count (150-450) k/uL MPV Neutrophils % % Lymphocytes % % Monocytes % % Eosinophils % % Basophils % % Neutrophils # (1.3-7.7) k/uL Lymphocytes # (1.0-4.8) k/uL Monocytes # (0-1.0) k/uL Eosinophils # (0-0.7) k/uL Basophils # (0-0.2) k/uL PT (9.0-12.0) sec INR (<1.2) APTT (22.0-30.0) sec Sodium (137-145) mmol/L Potassium (3.5-5.1) mmol/L Chloride (98-107) mmol/L Carbon Dioxide (22-30) mmol/L Anion Gap mmol/L BUN (7-17) mg/dL Creatinine (0.52-1.04) mg/dL Est GFR (CKD-EPI)AfAm (>60 ml/min/1.73 sqM) Est GFR (CKD-EPI)NonAf (>60 ml/min/1.73 sqM) Glucose (74-99) mg/dL Calcium (8.4-10.2) mg/dL Magnesium (1.6-2.3) mg/dL Total Bilirubin (0.2-1.3) mg/dL AST (14-36) U/L ALT (4-34) U/L Alkaline Phosphatase (38-126) U/L Troponin I <0.012 (0.000-0.034) ng/mL Total Protein (6.3-8.2) g/dL Albumin (3.5-5.0) g/dL Lipase (23-300) U/L Urine Color Yellow Urine Appearance Clear (Clear) Urine pH 5.5 (5.0-8.0) Ur Specific Jennings 1.023 (1.001-1.035) Urine Protein Trace H (Negative) Urine Glucose (UA) Negative (Negative) Urine Ketones Negative (Negative) Urine Blood Negative (Negative) Urine Nitrite Negative (Negative) Urine Bilirubin Negative (Negative) Urine Urobilinogen <2.0 (<2.0) mg/dL Ur Leukocyte Esterase Large H (Negative) Urine RBC 2 (0-5) /hpf Urine WBC 25 H (0-5) /hpf Urine WBC Clumps Rare H (None) /hpf Ur Squamous Epith Cells 1 (0-4) /hpf Urine Bacteria Occasional H (None) /hpf Hyaline Casts 13 H (0-2) /lpf Urine Mucus Many H (None) /hpf Disposition Clinical Impression: UTI (urinary tract infection), Weakness Disposition: ADMITTED IP TO THIS [facility] Condition: Stable Is patient prescribed a controlled substance at d/c from ED?: No Referrals: Maryann Craig DO [Primary Care Provider] - 1-2 days Time of Disposition: 03:30 Decision to Admit Reason: Admit from EC Decision Date: 08/06/22 Decision Time: 03:30
[2022-08-06] MEDS ORDERED: NITROGLYCERIN SL TABS 0.4 MG TAB SUBLINGUAL PRN (09:44)
[2022-08-06] MEDS ORDERED: ACETAMINOPHEN TAB 500 MG TAB PO PRN (09:44)
[2022-08-06] MEDS ORDERED: Magnesium Replacement Protocol 1 EACH MISC MISCELLANE PRN (09:44)
[2022-08-06] MEDS ORDERED: MAGNESIUM SULFATE-D5W PMX 1 GM in DEXTROSE/WATER 1 100ML.BAG IVPB ONE (10:00)
[2022-08-06] MEDS: LEVOTHYROXINE 75 MCG TAB PO SCH (11:08)
[2022-08-06] MEDS: amLODIPine 10 MG TAB PO SCH (11:09)
[2022-08-06] MEDS: PANTOPRAZOLE 40 MG TABLET PO SCH ×2 (11:10→17:41)
[2022-08-06] MEDS: MEMANTINE 10 MG TAB PO SCH ×2 (11:10→20:30)
[2022-08-06] MEDS: LORATADINE 10 MG TAB PO SCH (11:11)
[2022-08-06] MEDS: VORTIOXETINE HYDROBROMIDE 20 MG TABLET PO SCH (11:11)
[2022-08-06] MEDS: CYANOCOBALAMIN 500 MCG TAB PO SCH (11:12)
[2022-08-06] MEDS: DONEPEZIL 10 MG TAB PO SCH (11:13)
[2022-08-06] MEDS: FERROUS SULFATE 325 MG TAB PO SCH (11:13)
[2022-08-06] MEDS: MULTIVITAMINS, THERA 1 EACH TAB PO SCH (11:14)
[2022-08-06] MEDS: NON FORMULARY DRUG (Mirabegron [Myrbetriq] 50 MG Tablet) PO SCH (11:16)
--- NOTE | 2022-08-06 15:50 | P.HPIM ---
History of Present Illness H&P Date: 08/06/22 This is a 82-year-old female who presented to the emergency department via EMS with recent fall and altered mental status. Patient follows with Dr. Mckeon in the outpatient setting with a significant past medical history of dementia, atrial fibrillation, COPD, diabetes mellitus, GERD, hyperlipidemia, hypertension, osteoarthritis, thyroid disorder, urinary incontinence with leakage and wears depends. Patient is a poor historian and extremely lethargic although arousable. Patient had a urinary tract infection most recently with some resistance requiring IV antibiotics in the outpatient setting. Patient had a urinalysis sample in the ER which showed. Patient is denying any pain or burning with urination. Patient reports abdominal pain at the area where she struck during her fall. Patient was walking 1-2 days previously with her walker and getting up and getting dressed on her own per son who lives with her and is her caregiver although yesterday she was unable to ambulate attempted to and fell down slowly without any head injury or trauma. Patient was sent here by family for further evaluation. Labs show a WBC of 5.4, hemoglobin 13.4, sodium 135, potassium 3.5, creatinine 0.69, magnesium slightly low at 1.6, troponin negative, lipase 150. Patient was admitted under observation for weakness with possible UTI. Review Of Systems: Constitutional: No fever, no chills, no night sweats. No weight change. No weakness, fatigue or lethargy. No daytime sleepiness. EENT: No headache. No blurred vision or double vision, no loss of vision. No loss of Hearing, no ringing in the ears, no dizziness. No nasal drainage or congestion. No epistaxis. No sore throat. Lungs: No shortness of breath, cough, no sputum production. No wheezing. Cardiovascular: No chest pain, no lower extremity edema. No palpitations. No paroxysmal nocturnal dyspnea. No orthopnea. No lightheadedness or dizziness. No syncopal episodes. Abdominal: Reports abdominal pain at the umbilicus where she struck her belly on the chair. No nausea, vomiting. No diarrhea. No constipation. No bloody or tarry stools.. No loss of appetite. Genitourinary: Denies dysuria, denies increased frequency, urgency. No urinary retention. Is incontinent Musculoskeletal: No myalgias. No muscle weakness, no gait dysfunction, no frequent falls. No back pain. No neck pain. Integumentary: No wounds, no lesions. No rash or pruritus. No unusual bruising. No change in hair or nails. Neurologic: No aphasia. No facial droop. No change in mentation. No head injury. No headache. No paralysis. No paresthesia. Psychiatric: No depression. No anxiety. No mood swings. Endocrine: No abnormal blood sugars. No weight change. No excessive sweating or thirst. No cold intolerance. PHYSICAL EXAMINATION: GENERAL: The patient is alert and oriented x1-2, lethargic although arousable. Well developed, well nourished. Obese HEENT: Pupils are round and equally reacting to light. EOMI. no scleral icterus. No conjunctival pallor. Normocephalic, atraumatic. No pharyngeal erythema. No thyromegaly. CARDIOVASCULAR: S1 and S2 muffled PULMONARY: diminished breath sounds bilaterally with no wheezing or rhonchi noted. ABDOMEN: soft. Mild tenderness noted on exam on palpation of the umbilical area. obese. non-distended, normoactive bowel sounds. No palpable organomegaly. MUSCULOSKELETAL: No joint swelling or deformity. EXTREMITIES: No cyanosis, clubbing, or pedal edema. NEUROLOGICAL: Gross neurological examination did not reveal any focal deficits. Diffuse weakness SKIN: No rashes. Assessment: Weakness with gait dysfunction and mechanical fall with no injuries Possible acute urinary tract infection, present on admission, suspicion is low as patient is afebrile with no white count and denies pain, burning, or frequency with urination, likely asymptomatic bacteriuria History of atrial fibrillation COPD history, not in exacerbation Dementia diabetes mellitus GERD Hyperlipidemia Hypertension Line osteoarthritis Line thyroid disorder GI prophylaxis DVT prophylaxis Full code Plan: Recommend to continue with current medications and management and will consult case management/also work for possible ECF Recommend PT/OT therapy evaluation and will await and appreciate their input and recommendations Patient was given a dose of antibiotics in the emergency department although pat ient is denying any pain or frequency or burning with urination, there is no white count, afebrile and will not continue with antibiotics, most likely asymptomatic bacteriuria Home medications have been reviewed and resumed and will continue to monitor closely Family is okay with ECF and choices were made with case management and will follow-up with them in the a.m. after therapy evaluation The impression and plan of care has been dictated by Sabine Burch, nurse practitioner as directed. Dr. Nadia MD I have performed a history and examination and MDM of this patient, discussed the same with the dictator, and agree with the dictator's assessment and plan as written ,documented as a scribe. Based on total visit time, I have performed more than 50% of the visit. Any additional findings or plans will be noted. Past Medical History Past Medical History: Atrial Fibrillation, COPD, Dementia, Diabetes Mellitus, GERD/Reflux, Hyperlipidemia, Hypertension, Memory Impairment, Osteoarthritis (OA), Pneumonia, Thyroid Disorder Additional Past Medical History / Comment(s): Right hip infection w/wound vac in Jun.-tx. @[facility]-wound completely healed per son, SHINGLES TO RT FACE/EYE. diet controlled diabetes, osteoporosis, recent blood in stool,. ANEMIA WITH BLOOD TRANSFUSIONS. 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 Past Anesthesia/Blood Transfusion Reactions: No Reported Reaction Date of Last Stent Placement:: 2017 Past Psychological History: Unable to Obtain, Depression Smoking Status: Former smoker Past Alcohol Use History: None Reported Past Drug Use History: None Reported - Past Family History Daughter(s) Family Medical History: Cancer Father History Unknown: Yes Family Medical History: Hypertension Additional Family Medical History / Comment(s): BRAIN TUMOR Mother Family Medical History: Cancer Medications and Allergies Home Medications Medication Instructions Recorded Confirmed Type Levothyroxine Sodium [Synthroid] 150 mcg PO SUTUWETHSA 09/30/13 08/06/22 History Pravastatin Sodium [Pravachol] 80 mg PO HS 11/07/14 08/06/22 History Multivitamins, Thera [Multivitamin 1 tab PO DAILY 06/01/18 08/06/22 History (formulary)] Sotalol [Betapace] 80 mg PO BID 06/01/18 08/06/22 History Ferrous Sulfate [Iron (65 MG 325 mg PO DAILY 06/16/18 08/06/22 History Elemental)] Losartan/Hydrochlorothiazide 1 tab PO DAILY 08/18/18 08/06/22 History [Losartan-Hctz 100-25 mg Tab] Donepezil [Aricept] 10 mg PO DAILY 06/22/21 08/06/22 History Memantine [Namenda] 10 mg PO BID 06/22/21 08/06/22 History Mirabegron [Myrbetriq] 50 mg PO DAILY 06/22/21 08/06/22 History Sennosides-Docusate Sodium 1 tab PO HS 06/22/21 08/06/22 History [Senokot-S] Cyanocobalamin [Vitamin B-12] 500 mcg PO DAILY 07/16/21 08/06/22 History Rivaroxaban [Xarelto] 15 mg PO HS 07/16/21 08/06/22 History Pantoprazole [Protonix] 40 mg PO BID 02/23/22 08/06/22 History Acetaminophen [Tylenol Extra 500 mg PO Q8HR PRN #30 tablet 02/24/22 08/06/22 Rx Strength] Levothyroxine Sodium [Synthroid] 125 mcg PO MOFR 06/05/22 08/06/22 History Loratadine [Claritin] 10 mg PO DAILY 06/05/22 08/06/22 History Nitroglycerin Sl Tabs [Nitrostat] 0.4 mg SUBLINGUAL Q5M PRN 06/05/22 08/06/22 History Vortioxetine Hydrobromide 20 mg PO DAILY 06/05/22 08/06/22 History [Trintellix] amLODIPine [Norvasc] 10 mg PO DAILY 30 Days #30 tab 06/09/22 08/06/22 Rx Allergies Allergy/AdvReac Type Severity Reaction Status Date / Time azithromycin Allergy Rash/Hives Verified 08/06/22 09:29 [From Zithromax Z-Chau] codeine Allergy Unknown Verified 08/06/22 09:29 hydrochlorothiazide Allergy Unknown Verified 08/06/22 09:29 [From Dyazide] lincomycin HCl Allergy Unknown Verified 08/06/22 09:29 [From Lincocin] meperidine HCl [From Demerol] Allergy Unknown Verified 08/06/22 09:29 metronidazole [From Flagyl] Allergy Unknown Verified 08/06/22 09:29 Metronidazole HCl Allergy Unknown Verified 08/06/22 09:29 [From Flagyl] Penicillins Allergy Unknown Verified 08/06/22 09:29 Childhood Ejupzan-YKV-EoL Reductase Allergy Unknown Verified 08/06/22 09:29 Inhibitor Sulfa (Sulfonamide Allergy Unknown Verified 08/06/22 09:29 Antibiotics) tetracycline [Tetracycline] Allergy Unknown Verified 08/06/22 09:29 triamterene [From Dyazide] Allergy Unknown Verified 08/06/22 09:29 watermelon Allergy Swelling Verified 08/06/22 09:29 atorvastatin calcium AdvReac MUSCLE Verified 08/06/22 09:29 [From Lipitor] ACHES rosuvastatin calcium AdvReac MUSCLE Verified 08/06/22 09:29 [From Crestor] ACHES Physical Exam Vitals: Vital Signs Temp Pulse Resp BP Pulse Ox 08/06/22 07:52 98.3 F 66 20 156/60 95 08/06/22 06:21 96 14 156/60 97 08/06/22 04:11 67 14 152/70 98 08/06/22 01:16 70 18 153/76 97 Intake and Output 08/05/22 08/06/22 08/06/22 22:59 06:59 14:59 Other: Weight 89.358 kg Results CBC & Chem 7: 08/06/22 01:25 08/06/22 01:25 Labs: Abnormal Lab Results - Last 24 Hours (Table) 08/06/22 08/06/22 08/06/22 Range/Units 01:25 01:25 01:25 Plt Count 145 L (150-450) k/uL Lymphocytes # 0.8 L (1.0-4.8) k/uL PT 13.4 H (9.0-12.0) sec INR 1.3 H (<1.2) APTT 35.3 H (22.0-30.0) sec Sodium 135 L (137-145) mmol/L Calcium 8.2 L (8.4-10.2) mg/dL Total Protein 6.1 L (6.3-8.2) g/dL Albumin 3.3 L (3.5-5.0) g/dL Urine Protein (Negative) Ur Leukocyte Esterase (Negative) Urine WBC (0-5) /hpf Urine WBC Clumps (None) /hpf Urine Bacteria (None) /hpf Hyaline Casts (0-2) /lpf Urine Mucus (None) /hpf 08/06/22 Range/Units 02:08 Plt Count (150-450) k/uL Lymphocytes # (1.0-4.8) k/uL PT (9.0-12.0) sec INR (<1.2) APTT (22.0-30.0) sec Sodium (137-145) mmol/L Calcium (8.4-10.2) mg/dL Total Protein (6.3-8.2) g/dL Albumin (3.5-5.0) g/dL Urine Protein Trace H (Negative) Ur Leukocyte Esterase Large H (Negative) Urine WBC 25 H (0-5) /hpf Urine WBC Clumps Rare H (None) /hpf Urine Bacteria Occasional H (None) /hpf Hyaline Casts 13 H (0-2) /lpf Urine Mucus Many H (None) /hpf Thrombosis Risk Factor Assmnt - DVT/VTE Prophylaxis DVT/VTE Prophylaxis: Pharmacologic Prophylaxis ordered Assessment and Plan Time with Patient: Greater than 30
[2022-08-06] MEDS: PRAVASTATIN SODIUM 80 MG TAB PO SCH (20:30)
[2022-08-06] MEDS: SENNOSIDES-DOCUSATE SODIUM 1 EACH TAB PO SCH (20:30)
[2022-08-06] MEDS: SOTALOL 80 MG TAB PO SCH (20:30)
[2022-08-06] MEDS: RIVAROXABAN 15 MG TAB PO SCH (20:31)
[2022-08-07] MEDS: LEVOTHYROXINE 75 MCG TAB PO SCH (05:46)
[2022-08-07] MEDS: NON FORMULARY DRUG (Mirabegron [Myrbetriq] 50 MG Tablet) PO SCH (09:01)
[2022-08-07] MEDS: LOSARTAN-HCTZ 50-12.5 MG 1 EACH TAB PO SCH (09:03)
[2022-08-07] MEDS: PANTOPRAZOLE 40 MG TABLET PO SCH ×2 (09:03→17:00)
[2022-08-07] MEDS: amLODIPine 10 MG TAB PO SCH (09:03)
[2022-08-07] MEDS: FERROUS SULFATE 325 MG TAB PO SCH (09:03)
[2022-08-07] MEDS: SOTALOL 80 MG TAB PO SCH ×2 (09:03→20:25)
[2022-08-07] MEDS: LORATADINE 10 MG TAB PO SCH (09:03)
[2022-08-07] MEDS: CYANOCOBALAMIN 500 MCG TAB PO SCH (09:03)
[2022-08-07] MEDS: MEMANTINE 10 MG TAB PO SCH ×2 (09:03→20:25)
[2022-08-07] MEDS: DONEPEZIL 10 MG TAB PO SCH (09:03)
[2022-08-07] MEDS: MULTIVITAMINS, THERA 1 EACH TAB PO SCH (09:03)
[2022-08-07] MEDS: VORTIOXETINE HYDROBROMIDE 20 MG TABLET PO SCH (09:03)
[2022-08-07] MEDS: RIVAROXABAN 15 MG TAB PO SCH (20:24)
[2022-08-07] MEDS: PRAVASTATIN SODIUM 80 MG TAB PO SCH (20:24)
[2022-08-07] MEDS: SENNOSIDES-DOCUSATE SODIUM 1 EACH TAB PO SCH (20:24)
[2022-08-08] MEDS ORDERED: LOPERAMIDE 2 MG CAP PO PRN (05:18)
--- NOTE | 2022-08-08 05:25 | P.PN ---
Subjective Progress Note Date: 08/07/22 This is a 82-year-old female who presented to the emergency department via EMS with recent fall and altered mental status. Patient follows with Dr. Mckeon in the outpatient setting with a significant past medical history of dementia, atrial fibrillation, COPD, diabetes mellitus, GERD, hyperlipidemia, hypertension, osteoarthritis, thyroid disorder, urinary incontinence with leakage and wears depends. Patient is a poor historian and extremely lethargic although arousable. Patient had a urinary tract infection most recently with some resistance requiring IV antibiotics in the outpatient setting. Patient had a urinalysis sample in the ER which showed. Patient is denying any pain or burning with urination. Patient reports abdominal pain at the area where she struck during her fall. Patient was walking 1-2 days previously with her walker and getting up and getting dressed on her own per son who lives with her and is her caregiver although yesterday she was unable to ambulate attempted to and fell down slowly without any head injury or trauma. Patient was sent here by family for further evaluation. Labs show a WBC of 5.4, hemoglobin 13.4, sodium 135, potassium 3.5, creatinine 0.69, magnesium slightly low at 1.6, troponin negative, lipase 150. Patient was admitted under observation for weakness with possible UTI. 08/07/2022 Patient is seen and evaluated follow-up with no acute overnight issues noted. Patient was evaluated by physical therapy recommending rehab and being followed daily. Patient was able to get up and walk with assistance with a walker today. Patient is much more awake and alert denies any abdominal pain. Patient denies burning or pain with urination. Patient and nursing staff reported loose stool that was gelatinous and foul-smelling with concerns of C. diff and will order testing to rule out. Patient did receive a large dose of vancomycin in the ER and antibiotics have been discontinued. Patient was recently admitted and hospitalized and sent home on IV antibiotics for UTI. Patient is incontinent of urine and wears a brief period patient is currently afebrile with no reports of chest pain or shortness of breath. Patient denies nausea or vomiting and tolerating diet. Review of systems: Constitutional: No reports of fatigue, fever, or chills Cardiovascular: No reports of chest pain or palpitations Respiratory: No reports of shortness of breath or cough GI: No reports of nausea, vomiting, or diarrhea : No reports of dysuria or retention Neurovascular: No reports of weakness or numbness All medications have been reviewed Active Medications Acetaminophen (Acetaminophen Tab 500 Mg Tab) 500 mg PO Q8HR PRN PRN Reason: Mild Pain (Scale 1 to 3) Last Admin: 08/06/22 20:30 Dose: 500 mg Amlodipine Besylate (Amlodipine 10 Mg Tab) 10 mg PO DAILY [facility] Last Admin: 08/07/22 09:03 Dose: 10 mg Cyanocobalamin (Cyanocobalamin 500 Mcg Tab) 500 mcg PO DAILY [facility] Last Admin: 08/07/22 09:03 Dose: 500 mcg Donepezil HCl (Donepezil 10 Mg Tab) 10 mg PO DAILY [facility] Last Admin: 08/07/22 09:03 Dose: 10 mg Ferrous Sulfate (Ferrous Sulfate 325 Mg Tab) 325 mg PO DAILY [facility] Last Admin: 08/07/22 09:03 Dose: 325 mg HCTZ/Losartan Potassium (Losartan-Hctz 50-12.5 Mg 1 Each Tab) 2 each PO DAILY [facility] Last Admin: 08/07/22 09:03 Dose: 2 each Levothyroxine Sodium (Levothyroxine 125 Mcg Tab) 125 mcg PO MoFr@0630 [facility] Levothyroxine Sodium (Levothyroxine 75 Mcg Tab) 150 mcg PO [id number]@0630 [facility] Last Admin: 08/07/22 05:46 Dose: 150 mcg Loperamide HCl (Loperamide 2 Mg Cap) 2 mg PO QID PRN PRN Reason: Diarrhea Loratadine (Loratadine 10 Mg Tab) 10 mg PO DAILY [facility] Last Admin: 08/07/22 09:03 Dose: 10 mg Memantine (Memantine 10 Mg Tab) 10 mg PO BID [facility] Last Admin: 08/07/22 20:25 Dose: 10 mg Miscellaneous Information (Magnesium Replacement Protocol 1 Each Misc) 1 each MISCELLANE DAILY PRN; Protocol PRN Reason: Per Protocol Multivitamins (Multivitamins, Thera 1 Each Tab) 1 each PO DAILY [facility] Last Admin: 08/07/22 09:03 Dose: 1 each Naloxone HCl (Naloxone 0.4 Mg/Ml 1 Ml Vial) 0.2 mg IV Q2M PRN PRN Reason: Opioid Reversal Nitroglycerin (Nitroglycerin Sl Tabs 0.4 Mg Tab) 0.4 mg SUBLINGUAL Q5M PRN PRN Reason: Chest Pain Non-Formulary Medication (Mirabegron [Myrbetriq]) 50 mg PO DAILY [facility] Last Admin: 08/07/22 09:01 Dose: Not Given Pantoprazole Sodium (Pantoprazole 40 Mg Tablet) 40 mg PO AC-BID [facility] Last Admin: 08/07/22 17:00 Dose: 40 mg Pravastatin Sodium (Pravastatin Sodium 80 Mg Tab) 80 mg PO HS [facility] Last Admin: 08/07/22 20:24 Dose: 80 mg Rivaroxaban (Rivaroxaban 15 Mg Tab) 15 mg PO HS [facility]; Protocol Last Admin: 08/07/22 20:24 Dose: 15 mg Senna/Docusate Sodium (Sennosides-Docusate Sodium 1 Each Tab) 1 each PO HS [facility] Last Admin: 08/07/22 20:24 Dose: 1 each Sotalol HCl (Sotalol 80 Mg Tab) 80 mg PO BID [facility] Last Admin: 08/07/22 20:25 Dose: 80 mg Vortioxetine (Vortioxetine Hydrobromide 20 Mg Tablet) 20 mg PO DAILY [facility] Last Admin: 08/07/22 09:03 Dose: 20 mg PHYSICAL EXAMINATION: GENERAL: The patient is alert and oriented x2, much more awake currently sitting up in the chair eating. Well developed, well nourished. Obese HEENT: Pupils are round and equally reacting to light. EOMI. no scleral icterus. No conjunctival pallor. Normocephalic, atraumatic. No pharyngeal erythema. No thyromegaly. CARDIOVASCULAR: S1 and S2 muffled PULMONARY: diminished breath sounds bilaterally with no wheezing or rhonchi noted. ABDOMEN: soft. Nontender. obese. non-distended, normoactive bowel sounds. No palpable organomegaly. MUSCULOSKELETAL: No joint swelling or deformity. EXTREMITIES: No cyanosis, clubbing, or pedal edema. NEUROLOGICAL: Gross neurological examination did not reveal any focal deficits. Diffuse weakness SKIN: No rashes. Assessment: Weakness with gait dysfunction and mechanical fall with no injuries Possible acute urinary tract infection, present on admission, suspicion is low as patient is afebrile with no white count and denies pain, burning, or frequency with urination, likely asymptomatic bacteriuria diarrhea, ruled out C. diff History of atrial fibrillation COPD history, not in exacerbation Dementia diabetes mellitus GERD Hyperlipidemia Hypertension Line osteoarthritis Line thyroid disorder GI prophylaxis DVT prophylaxis Full code Plan: Recommend to continue with current medications and management with case management working on ecf Recommend PT/OT therapy evaluation daily and recommend ECF. Family is agreeable Per nursing staff and patient, patient had been having increased liquidy foul- smelling gelatinous stool with concerns of C. diff testing was ordered and was negative. Will add Imodium as needed Patient was given a dose of antibiotics in the emergency department although p atient is denying any pain or frequency or burning with urination, there is no white count, afebrile and will not continue with antibiotics, most likely asymptomatic bacteriuria. Patient was recently hospitalized and sent home on IV antibiotics for a week Home medications have been reviewed and resumed and will continue to monitor closely Due to multiple complex medical issues, prognosis is guarded. Possible discharge in the next 24 hours The impression and plan of care has been dictated by Sabine Burch, nurse practitioner as directed. Dr. Day MD I have performed a history and examination and MDM of this patient, discussed the same with the dictator, and agree with the dictator's assessment and plan as written ,documented as a scribe. Based on total visit time, I have performed more than 50% of the visit. Any additional findings or plans will be noted. Objective - Vital Signs Vital signs: Vital Signs Temp 98.5 F 08/07/22 07:41 Pulse 60 08/07/22 07:41 Resp 16 08/07/22 07:41 BP 165/72 08/07/22 07:41 Pulse Ox 92 L 08/07/22 07:41 FiO2 Intake & Output 08/06/22 08/07/22 08/07/22 18:59 06:59 18:59 Output Total 200 Balance -200 Weight 89.358 kg Output: Urine 200 Other: Voiding Method External Catheter External Catheter # Voids 1 1 # Bowel Movements 1 1 - Labs CBC & Chem 7: 08/06/22 01:25 08/06/22 01:25 Labs: Microbiology - Last 24 Hours (Table) 08/06/22 02:08 Urine Culture - Preliminary Urine,Voided
[2022-08-08] MEDS ORDERED: LEVOTHYROXINE 125 MCG TAB PO SCH (06:30)
[2022-08-08 08:51] VITALS: BP 154/70; PULSE 71; RESP 20; TEMP 98
[2022-08-08] MEDS: DONEPEZIL 10 MG TAB PO SCH (08:54)
[2022-08-08] MEDS: amLODIPine 10 MG TAB PO SCH (08:54)
[2022-08-08] MEDS: SOTALOL 80 MG TAB PO SCH (08:54)
[2022-08-08] MEDS: CYANOCOBALAMIN 500 MCG TAB PO SCH (08:54)
[2022-08-08] MEDS: MEMANTINE 10 MG TAB PO SCH (08:54)
[2022-08-08] MEDS: PANTOPRAZOLE 40 MG TABLET PO SCH (08:54)
[2022-08-08] MEDS: MULTIVITAMINS, THERA 1 EACH TAB PO SCH (08:55)
[2022-08-08] MEDS: LORATADINE 10 MG TAB PO SCH (08:55)
[2022-08-08] MEDS: VORTIOXETINE HYDROBROMIDE 20 MG TABLET PO SCH (08:55)
[2022-08-08] MEDS: NON FORMULARY DRUG (Mirabegron [Myrbetriq] 50 MG Tablet) PO SCH (08:55)
[2022-08-08] MEDS: LOSARTAN-HCTZ 50-12.5 MG 1 EACH TAB PO SCH (08:55)
[2022-08-08] MEDS: FERROUS SULFATE 325 MG TAB PO SCH (08:55)
--- NOTE | 2022-08-08 14:18 | P.DS ---
Providers Date of admission: 08/06/22 04:13 Expected date of discharge: 08/08/22 Attending physician: Awilda Vaughan Primary care physician: Maryann Mckeon Hospital Course: Final diagnosis Weakness with gait dysfunction and mechanical fall with no injuries Possible acute urinary tract infection, present on admission, suspicion is low as patient is afebrile with no white count and denies pain, burning, or frequency with urination, likely asymptomatic bacteriuria diarrhea, ruled out C. diff History of atrial fibrillation COPD history, not in exacerbation Dementia diabetes mellitus GERD Hyperlipidemia Hypertension Line osteoarthritis Line thyroid disorder GI prophylaxis DVT prophylaxis Full code Discharge disposition Patient is being discharged in a stable condition with guarded prognosis to [facility]. Patient will follow-up with Dr. Mckeon in the outpatient setting upon discharge. Total time taken is greater than 35 minutes. Hospital course This is a 82-year-old female who was recently admitted with weakness and per son was walking one day prior in the next day was unable to walk with significant lower extremity weakness. Patient was recently hospitalized and discharged on IV antibiotics in the form of that still for urinary tract infection and completed the course. Patient had a urine sample in the ER as per protocol showing gram-negative most likely asymptomatic bacteriuria as patient is denying any pain or burning with frequency. Patient's magnesium was found to be 1.4 on admission and improved to 2.0 after replacement. Patient was seen and evaluated by physical therapy recommending rehab and family agreeable. Patient has been accepted at [facility] and will be going there today. Patient follow-up with primary care provider Dr. Mckeon on discharge. Patient did have an episode of loose followed her stool and was tested for C. diff and was negative. Currently no reports of chest pain, shortness of breath, or palpitations. Patient is afebrile. No reports of nausea or vomiting and patient is tolerating diet. Patient will be going to [facility] today. Guarded prognosis. Physical exam: Gen: This is a 82-year-old female who is awake, alert and oriented 2, well-developed, well-nourished, obese HEENT: Head is atraumatic, normocephalic. Pupils equal, round. Sclerae is anicteric. NECK: Supple. No JVD. No lymphadenopathy. No thyromegaly. LUNGS: Clear to auscultation. No wheezes or rhonchi. No intercostal retractions. HEART: Regular rate and rhythm. No murmur. ABDOMEN: Soft. Bowel sounds are present. No masses. No tenderness. EXTREMITIES: No pedal edema. No calf tenderness. NEUROLOGICAL: Patient is awake, alert and oriented x3. Cranial nerves 2 through 12 are grossly intact. Diffusely weak Please refer to medication reconciliation sheet for a list of medications. The impression and plan of care has been dictated by Sabine Burch, Nurse Practitioner as directed. Dr. Day MD I have performed a history and examination and MDM of this patient, discussed the same with the dictator, and agree with the dictator's assessment and plan as written ,documented as a scribe. Based on total visit time, I have performed more than 50% of the visit. Patient Condition at Discharge: Stable Plan - Discharge Summary Discharge Rx Participant: No New Discharge Prescriptions: New Loperamide [Imodium] 2 mg PO QID PRN cap PRN Reason: Diarrhea Continue Levothyroxine Sodium [Synthroid] 150 mcg PO SUTUWETHSA Pravastatin Sodium [Pravachol] 80 mg PO HS Sotalol [Betapace] 80 mg PO BID Multivitamins, Thera [Multivitamin (formulary)] 1 tab PO DAILY Ferrous Sulfate [Iron (65 MG Elemental)] 325 mg PO DAILY Losartan/Hydrochlorothiazide [Losartan-Hctz 100-25 mg Tab] 1 tab PO DAILY Donepezil [Aricept] 10 mg PO DAILY Memantine [Namenda] 10 mg PO BID Mirabegron [Myrbetriq] 50 mg PO DAILY Rivaroxaban [Xarelto] 15 mg PO HS Pantoprazole [Protonix] 40 mg PO BID Levothyroxine Sodium [Synthroid] 125 mcg PO MOFR Vortioxetine Hydrobromide [Trintellix] 20 mg PO DAILY Sennosides-Docusate Sodium [Senokot-S] 1 tab PO HS Cyanocobalamin [Vitamin B-12] 500 mcg PO DAILY Acetaminophen [Tylenol Extra Strength] 500 mg PO Q8HR PRN #30 tablet PRN Reason: Pain Loratadine [Claritin] 10 mg PO DAILY Nitroglycerin Sl Tabs [Nitrostat] 0.4 mg SUBLINGUAL Q5M PRN PRN Reason: Chest Pain amLODIPine [Norvasc] 10 mg PO DAILY 30 Days #30 tab Discharge Medication List Levothyroxine Sodium [Synthroid] 150 mcg PO SUTUWETHSA 09/30/13 [History] Pravastatin Sodium [Pravachol] 80 mg PO HS 11/07/14 [History] Multivitamins, Thera [Multivitamin (formulary)] 1 tab PO DAILY 06/01/18 [History] Sotalol [Betapace] 80 mg PO BID 06/01/18 [History] Ferrous Sulfate [Iron (65 MG Elemental)] 325 mg PO DAILY 06/16/18 [History] Losartan/Hydrochlorothiazide [Losartan-Hctz 100-25 mg Tab] 1 tab PO DAILY 08/18/18 [History] Donepezil [Aricept] 10 mg PO DAILY 06/22/21 [History] Memantine [Namenda] 10 mg PO BID 06/22/21 [History] Mirabegron [Myrbetriq] 50 mg PO DAILY 06/22/21 [History] Sennosides-Docusate Sodium [Senokot-S] 1 tab PO HS 06/22/21 [History] Cyanocobalamin [Vitamin B-12] 500 mcg PO DAILY 07/16/21 [History] Rivaroxaban [Xarelto] 15 mg PO HS 07/16/21 [History] Pantoprazole [Protonix] 40 mg PO BID 02/23/22 [History] Acetaminophen [Tylenol Extra Strength] 500 mg PO Q8HR PRN #30 tablet 02/24/22 [Rx] Levothyroxine Sodium [Synthroid] 125 mcg PO MOFR 06/05/22 [History] Loratadine [Claritin] 10 mg PO DAILY 06/05/22 [History] Nitroglycerin Sl Tabs [Nitrostat] 0.4 mg SUBLINGUAL Q5M PRN 06/05/22 [History] Vortioxetine Hydrobromide [Trintellix] 20 mg PO DAILY 06/05/22 [History] amLODIPine [Norvasc] 10 mg PO DAILY 30 Days #30 tab 06/09/22 [Rx] Loperamide [Imodium] 2 mg PO QID PRN cap 08/08/22 [Rx] Follow up Appointment(s)/Referral(s): Home Health,[facility] [NON-STAFF] - 1 Week Maryann Mckeon DO [Primary Care Provider] - 1-2 days Activity/Diet/Wound Care/Special Instructions: Activity as tolerated Continue heart healthy diet
--- NOTE | 2022-08-11 12:27 | CDI ---
Documentation Clarification Form Date: 08/11/22 From: Samantha Huerta Admit Date: 08/08/2022 9:09:00 AM Patient Name: Cielo Palomino Visit Number: [id number] Discharge Date: 08/08/2022 3:03:00 PM ATTENTION: The Clinical Documentation Specialists (CDI) and [facility] Coding Staff appreciate your assistance in clarifying documentation. Please respond to the clarification below the line at the bottom and electronically sign. The CDI & [facility] Coding staff will review the response and follow-up if needed. Please note: Queries are made part of the Legal Health Record. If you have any questions, please contact the author of this message via ITS. Dr. Anu Bernstein, Your patient has an abnormal lab value: Magnesium: 1.6 & 2.0 Please clarify if there is an additional diagnosis and/or clinical significance related to this value. History/Risk Factors: Dementia w mood disturbance, thyroid disorder, T2DM, COPD, atrial fibrillation, bacteriuria, HTN, HLD, GERD Clinical indicators: 82 year old female with AMS. Fell, with overall weakness. Treatment: IV Magnesium Sulfate IV Is there an additional diagnosis and/or clinical significance related to the above lab result/information? [ x ] Hypomagnesemia [ ] No additional diagnosis/Not clinically significant [ ] Other, please specify [ ] Unable to determine MTDD
== END 2022-08-08 15:03 | disposition home health service (06) | DRG 948 ==
LOC: EC 01:13 → 5NMEDONC 04:13 → OBSVTOIN 08-08 09:09
PROVIDERS: ADMIT Hospitalist; ATTEND Hospitalist
DX: R53.1 Weakness (principal); F03.93 Unspecified dementia, unspecified severity, with mood disturbance; E07.9 Disorder of thyroid, unspecified; E11.9 Type 2 diabetes mellitus without complications; J44.9 Chronic obstructive pulmonary disease, unspecified; I48.91 Unspecified atrial fibrillation; Z28.310 Unvaccinated for COVID-19; E83.42 Hypomagnesemia; E78.5 Hyperlipidemia, unspecified; I10 Essential (primary) hypertension; K21.9 Gastro-esophageal reflux disease without esophagitis; R82.71 Bacteriuria; M81.0 Age-related osteoporosis without current pathological fracture; R26.2 Difficulty in walking, not elsewhere classified; R26.9 Unspecified abnormalities of gait and mobility; R32 Unspecified urinary incontinence; E66.9 Obesity, unspecified; Z68.34 Body mass index [BMI] 34.0-34.9, adult; M19.90 Unspecified osteoarthritis, unspecified site; Z79.01 Long term (current) use of anticoagulants; Z79.890 Hormone replacement therapy; Z79.899 Other long term (current) drug therapy; Z86.14 Personal history of Methicillin resistant Staphylococcus aureus infection; Z86.19 Personal history of other infectious and parasitic diseases; Z96.641 Presence of right artificial hip joint; Z87.891 Personal history of nicotine dependence; W18.30XA Fall on same level, unspecified, initial encounter
CPT/HCPCS: 36415; 71045; 80053; 81001; 83690; 83735; 84484; 85025; 85610; 85730; 87077; 87086; 87186; 87324; 93005; 96365; 96375; 99285

== ENCOUNTER 2022-09-10 00:25 | Emergency (ER) | payer MEDICARE, BC ==
[2022-09-10 00:41] VITALS: TEMP 98.1
[2022-09-10] MEDS ORDERED: SODIUM CHLORIDE 0.9% 1,000 ML IV ONE (01:18)
[2022-09-10 01:24] LABS: Glucose,Whole Blood 110 mg/dL (70-110)
--- NOTE | 2022-09-10 01:54 | ED ---
General Adult HPI - General Chief complaint: Urogenital Stated complaint: Urinary Infection Time Seen by Provider: 09/10/22 01:05 Source: patient, RN notes reviewed, old records reviewed Mode of arrival: wheelchair Limitations: no limitations - History of Present Illness Initial comments: Patient is an 82-year-old female with history of what sounds like undiagnosed dementia, A. fib, COPD, diabetes, hypertension on blood thinners who presents emergency Department with worsening confusion over the last few days. Brought in by her son. Patient is also some weakness. Overall the confusion got worse last Thursday. Previously had a UTI which was the cause of the confusion. She was following the [facility] with similar complaints as before with burning with urination. Patient's son brings her to the emergency department for further evaluation this time. Patient is complaining of nonspecific abdominal pain in addition to the burning and pain. Does have a history of abdominal surgeries. Denies constipation. Denies falls. Has no other acute complaints this time. No known sick contacts. Presents for further evaluation. Concern for UTI. - Related Data Home Medications Medication Instructions Recorded Confirmed Levothyroxine Sodium [Synthroid] 150 mcg PO SUTUWETHSA 09/30/13 08/06/22 Pravastatin Sodium [Pravachol] 80 mg PO HS 11/07/14 08/06/22 Multivitamins, Thera [Multivitamin 1 tab PO DAILY 06/01/18 08/06/22 (formulary)] Sotalol [Betapace] 80 mg PO BID 06/01/18 08/06/22 Ferrous Sulfate [Iron (65 MG 325 mg PO DAILY 06/16/18 08/06/22 Elemental)] Losartan/Hydrochlorothiazide 1 tab PO DAILY 08/18/18 08/06/22 [Losartan-Hctz 100-25 mg Tab] Donepezil [Aricept] 10 mg PO DAILY 06/22/21 08/06/22 Memantine [Namenda] 10 mg PO BID 06/22/21 08/06/22 Mirabegron [Myrbetriq] 50 mg PO DAILY 06/22/21 08/06/22 Sennosides-Docusate Sodium 1 tab PO HS 06/22/21 08/06/22 [Senokot-S] Cyanocobalamin [Vitamin B-12] 500 mcg PO DAILY 07/16/21 08/06/22 Rivaroxaban [Xarelto] 15 mg PO HS 07/16/21 08/06/22 Pantoprazole [Protonix] 40 mg PO BID 02/23/22 08/06/22 Levothyroxine Sodium [Synthroid] 125 mcg PO MOFR 06/05/22 08/06/22 Loratadine [Claritin] 10 mg PO DAILY 06/05/22 08/06/22 Nitroglycerin Sl Tabs [Nitrostat] 0.4 mg SUBLINGUAL Q5M PRN 06/05/22 08/06/22 Vortioxetine Hydrobromide 20 mg PO DAILY 06/05/22 08/06/22 [Trintellix] Previous Rx's Medication Instructions Recorded Acetaminophen [Tylenol Extra 500 mg PO Q8HR PRN #30 tablet 02/24/22 Strength] amLODIPine [Norvasc] 10 mg PO DAILY 30 Days #30 tab 06/09/22 Loperamide [Imodium] 2 mg PO QID PRN cap 08/08/22 Nitrofurantoin Monohyd/M-Cryst 100 mg PO Q12HR 7 Days #14 cap 09/10/22 [Macrobid] Allergies Allergy/AdvReac Type Severity Reaction Status Date / Time azithromycin Allergy Rash/Hives Verified 09/10/22 00:36 [From Zithromax Z-Chau] codeine Allergy Unknown Verified 09/10/22 00:36 hydrochlorothiazide Allergy Unknown Verified 09/10/22 00:36 [From Dyazide] lincomycin HCl Allergy Unknown Verified 09/10/22 00:36 [From Lincocin] meperidine HCl [From Demerol] Allergy Unknown Verified 09/10/22 00:36 metronidazole [From Flagyl] Allergy Unknown Verified 09/10/22 00:36 Metronidazole HCl Allergy Unknown Verified 09/10/22 00:36 [From Flagyl] Penicillins Allergy Unknown Verified 09/10/22 00:36 Childhood Uqiessc-TDJ-KnK Reductase Allergy Unknown Verified 09/10/22 00:36 Inhibitor Sulfa (Sulfonamide Allergy Unknown Verified 09/10/22 00:36 Antibiotics) tetracycline [Tetracycline] Allergy Unknown Verified 09/10/22 00:36 triamterene [From Dyazide] Allergy Unknown Verified 09/10/22 00:36 watermelon Allergy Swelling Verified 09/10/22 00:36 atorvastatin calcium AdvReac MUSCLE Verified 09/10/22 00:36 [From Lipitor] ACHES rosuvastatin calcium AdvReac MUSCLE Verified 09/10/22 00:36 [From Crestor] ACHES Review of Systems ROS Statement: Those systems with pertinent positive or pertinent negative responses have been documented in the HPI. Review of Systems: CONST: Denies fever EYES: Denies blurry vision ENT: Denies nasal congestion C/V: Denies Chest pain RESP: Denies shortness of breath GI: Endorses mild abdominal pain, suprapubic : Endorses dysuria SKIN: Denies rash. MSK: Denies joint pain. NEURO: Denies headache ROS Other: All systems not noted in ROS Statement are negative. Past Medical History Past Medical History: Atrial Fibrillation, COPD, Dementia, Diabetes Mellitus, GERD/Reflux, Hyperlipidemia, Hypertension, Memory Impairment, Osteoarthritis (OA), Pneumonia, Thyroid Disorder Additional Past Medical History / Comment(s): Right hip infection w/wound vac in Jun.-tx. [facility]-wound completely healed per son, SHINGLES TO RT FACE/EYE. diet controlled diabetes, osteoporosis, recent blood in stool,. ANEMIA WITH BLOOD TRANSFUSIONS. 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 Past Anesthesia/Blood Transfusion Reactions: No Reported Reaction Date of Last Stent Placement:: 2017 Past Psychological History: Unable to Obtain, Depression Smoking Status: Former smoker Past Alcohol Use History: None Reported Past Drug Use History: None Reported - Past Family History Daughter(s) Family Medical History: Cancer Father History Unknown: Yes Additional Family Medical History / Comment(s): BRAIN TUMOR Mother Family Medical History: Cancer General Exam - General Exam Comments Initial Comments: General: Appears in no acute distress. HEAD: Normal with no signs of head trauma. EYES: PERRLA, EOMI, conjunctiva normal, no discharge. It was 2 mm and equal bilaterally. ENT: Hearing grossly intact, normal oropharynx. RESPIRATORY: Clear breath sounds bilaterally. No wheezes, rales, or rhonchi. C/V: Bradycardia. S1 and S2 auscultated. . Peripheral pulses 2+ and intact throughout. ABD: Abdomen soft, nondistended. Tender to palpation mostly in the suprapubic region. No guarding. No peritoneal signs. No rebound tenderness. EXT: Normal range of motion, no obvious deformity SKIN: No rashes or lesions observed on exposed skin. NEURO: Alert and oriented 2 which is her baseline per her son. No focal deficits. GCS of 15. Mild confusion present. Limitations: no limitations Course Vital Signs 09/10/22 09/10/22 09/10/22 00:36 01:46 06:22 Temperature 98.1 F Pulse Rate 49 L 50 L 60 Respiratory 18 18 14 Rate Blood Pressure 131/59 128/60 147/57 O2 Sat by Pulse 96 98 97 Oximetry Medical Decision Making - Medical Decision Making Was pt. sent in by a medical professional or institution (, PA, [employer], urgent care, hospital, or skilled nursing...) When possible be specific @ -No Did you speak to anyone other than the patient for history (EMS, parent, family, police, friend...)? What history was obtained from this source @ -I spoke with the patient's son who provided the history including most recent admissions and history of UTIs with similar symptoms. Did you review nursing and triage notes (agree or disagree)? Why? @ -I reviewed and agree with nursing and triage notes Were old charts reviewed (outside hosp., previous admission, EMS record, old EKG, old radiological studies, urgent care reports/EKG's, skilled nursing records)? Report findings @ -No old charts were reviewed Differential Diagnosis (chest pain, altered mental status, abdominal pain women, abdominal pain men, vaginal bleeding, weakness, fever, dyspnea, syncope, he adache, dizziness, GI bleed, back pain, seizure, CVA, palpatations, mental health, musculoskeletal)? @ -Differential Weakness: Hypoglycemia, shock, sepsis, hyponatremia, anemia, infection, OK, ETOH, adverse medicine reaction, overdose, stroke, this is not meant to be an all-inclusive list. EKG interpreted by me (3pts min.). @ -As above X-rays interpreted by me (1pt min.). @ -Chest x-ray reveals no obvious acute cardio pulmonary process. CT interpreted by me (1pt min.). @ -Patient's brain CT reveals no obvious acute intracranial process. Patient's abdomen and pelvis CT reveals no obvious acute intra-abdominal process. She does show some mild constipation but no other obvious acute processes to explain her symptoms. U/S interpreted by me (1pt. min.). @ -None done What testing was considered but not performed or refused? (CT, X-rays, U/S, labs)? Why? @ -None What meds were considered but not given or refused? Why? @ -None Did you discuss the management of the patient with other professionals (professionals i.e. , PA, [employer], lab, RT, psych nurse, psychiatric social worker supervisor, mink rancher, teacher, aboriginal home school liaison officer, field nurse case manager)? Give summary @ -No Was smoking cessation discussed for >3mins.? @ -No Was critical care preformed (if so, how long)? @ -No Were there social determinants of health that impacted care today? How? (Homelessness, low income, unemployed, alcoholism, drug addiction, transportation, low edu. Level, literacy, decrease access to med. care, penitentiary, rehab)? @ -No Was there de-escalation of care discussed even if they declined (Discuss DNR or withdrawal of care, Hospice)? DNR status @ -No What co-morbidities impacted this encounter? (DM, HTN, Smoking, COPD, CAD, Cancer, CVA, ARF, Chemo, Hep., AIDS, mental health diagnosis, sleep apnea, morbid obesity)? @ -Dementia, diabetes, A. fib on blood thinners, UTIs Was patient admitted / discharged? Hospital course, mention meds given and rou te, prescriptions, significant lab abnormalities, going to OR and other pertinent info. @ -Based on the patient's presentation and physical exam, I'm concerned for likely UTI. Patient but she is overall poor historian. Appears to be at her baseline except for some intermittent confusion. We will obtain infectious workup as well as altered mental status workup this included CT brain. Son was in agreement this plan. Vital signs within acceptable limits. EKG showed no signs of acute ischemia. Laboratory studies are remarkable for an undetectable troponin. Urinalysis concerning for UTI with a large amount of leukocyte esterase and WBCs present. Brain CT revealed no obvious acute intracranial process. There was a long delay in obtaining imaging results due to it being the middle of the night and went for stat rad reads. Overall, imaging unremarkable for any acute process. I did update the family as well as patient. I discussed admission versus discharge and he felt comfortable taking the patient home with close follow-up with PCP. Is due to see urology early next month. Patient will be given a dose of Rocephin prior to discharge and started on Macrobid twice a day for the next 7 days. Strict return precautions discussed. Patient and patient's son were in agreement this plan. I will provide the patient with a prescription for Macrobid. I instructed the patient to follow up with their PCP in the next 1-3 days. I explained that the patient should return to the emergency department if they experience any worsening symptoms. Strict return precautions were discussed with the patient. The patient expressed understanding of these instructions. I answered all questions that the patient had. The patient was discharged home in good co ndition with their prescriptions and follow up information. Undiagnosed new problem with uncertain prognosis? @ -No Drug Therapy requiring intensive monitoring for toxicity (Heparin, Nitro, Insulin, Cardizem)? @ -No Were any procedures done? @ -No Diagnosis/symptom? @ -UTI Acute, or Chronic, or Acute on Chronic? @ -Acute Uncomplicated (without systemic symptoms) or Complicated (systemic symptoms)? @ -Complicated Side effects of treatment? @ -none Exacerbation, Progression, or Severe Exacerbation] @ -no Poses a threat to life or bodily function? @ -Yes, if untreated can result in significant morbidity and mortality. - Lab Data Result diagrams: 09/10/22 01:43 09/10/22 01:43 Lab Results 09/10/22 09/10/22 09/10/22 Range/Units 01:21 01:43 01:43 WBC 8.1 (3.8-10.6) k/uL RBC 4.75 (3.80-5.40) m/uL Hgb 14.7 (11.4-16.0) gm/dL Hct 43.2 (34.0-46.0) % MCV 90.9 (80.0-100.0) fL MCH 30.9 (25.0-35.0) pg MCHC 34.0 (31.0-37.0) g/dL RDW 13.0 (11.5-15.5) % Plt Count 211 (150-450) k/uL MPV 9.3 Neutrophils % 69 % Lymphocytes % 18 % Monocytes % 8 % Eosinophils % 3 % Basophils % 1 % Neutrophils # 5.6 (1.3-7.7) k/uL Lymphocytes # 1.5 (1.0-4.8) k/uL Monocytes # 0.6 (0-1.0) k/uL Eosinophils # 0.2 (0-0.7) k/uL Basophils # 0.1 (0-0.2) k/uL PT 12.4 H (9.0-12.0) sec INR 1.2 H (<1.2) APTT 34.8 H (22.0-30.0) sec Sodium (137-145) mmol/L Potassium (3.5-5.1) mmol/L Chloride (98-107) mmol/L Carbon Dioxide (22-30) mmol/L Anion Gap mmol/L BUN (7-17) mg/dL Creatinine (0.52-1.04) mg/dL Est GFR (CKD-EPI)AfAm (>60 ml/min/1.73 sqM) Est GFR (CKD-EPI)NonAf (>60 ml/min/1.73 sqM) Glucose (74-99) mg/dL POC Glucose (mg/dL) 110 (70-110) mg/dL POC Glu Branch Lead ID [place] Calcium (8.4-10.2) mg/dL Total Bilirubin (0.2-1.3) mg/dL AST (14-36) U/L ALT (4-34) U/L Alkaline Phosphatase (38-126) U/L Ammonia (<30) umol/L Troponin I (0.000-0.034) ng/mL Total Protein (6.3-8.2) g/dL Albumin (3.5-5.0) g/dL Urine Color Urine Appearance (Clear) Urine pH (5.0-8.0) Ur Specific [place] (1.001-1.035) Urine Protein (Negative) Urine Glucose (UA) (Negative) Urine Ketones (Negative) Urine Blood (Negative) Urine Nitrite (Negative) Urine Bilirubin (Negative) Urine Urobilinogen (<2.0) mg/dL Ur Leukocyte Esterase (Negative) Urine RBC (0-5) /hpf Urine WBC (0-5) /hpf Ur Squamous Epith Cells (0-4) /hpf Urine Bacteria (None) /hpf Urine Opiates Screen (NotDetected) Ur Oxycodone Screen (NotDetected) Urine Methadone Screen (NotDetected) Ur Propoxyphene Screen (NotDetected) Ur Barbiturates Screen (NotDetected) U Tricyclic Antidepress (NotDetected) Ur Phencyclidine Scrn (NotDetected) Ur Amphetamines Screen (NotDetected) U Methamphetamines Scrn (NotDetected) U Benzodiazepines Scrn (NotDetected) Urine Cocaine Screen (NotDetected) U Marijuana (THC) Screen (NotDetected) Serum Alcohol mg/dL Influenza Type A (PCR) (Not Detectd) Influenza Type B (PCR) (Not Detectd) RSV (PCR) (Not Detectd) SARS-CoV-2 (PCR) (Not Detectd) 09/10/22 09/10/22 09/10/22 Range/Units 01:43 01:43 01:43 WBC (3.8-10.6) k/uL RBC (3.80-5.40) m/uL Hgb (11.4-16.0) gm/dL Hct (34.0-46.0) % MCV (80.0-100.0) fL MCH (25.0-35.0) pg MCHC (31.0-37.0) g/dL RDW (11.5-15.5) % Plt Count (150-450) k/uL MPV Neutrophils % % Lymphocytes % % Monocytes % % Eosinophils % % Basophils % % Neutrophils # (1.3-7.7) k/uL Lymphocytes # (1.0-4.8) k/uL Monocytes # (0-1.0) k/uL Eosinophils # (0-0.7) k/uL Basophils # (0-0.2) k/uL PT (9.0-12.0) sec INR (<1.2) APTT (22.0-30.0) sec Sodium 138 (137-145) mmol/L Potassium 3.7 (3.5-5.1) mmol/L Chloride 104 (98-107) mmol/L Carbon Dioxide 30 (22-30) mmol/L Anion Gap 4 mmol/L BUN 18 H (7-17) mg/dL Creatinine 0.83 (0.52-1.04) mg/dL Est GFR (CKD-EPI)AfAm 76 (>60 ml/min/1.73 sqM) Est GFR (CKD-EPI)NonAf 66 (>60 ml/min/1.73 sqM) Glucose 106 H (74-99) mg/dL POC Glucose (mg/dL) (70-110) mg/dL POC Glu Branch Lead ID Calcium 10.4 H (8.4-10.2) mg/dL Total Bilirubin 0.6 (0.2-1.3) mg/dL AST 19 (14-36) U/L ALT 17 (4-34) U/L Alkaline Phosphatase 103 (38-126) U/L Ammonia <9 (<30) umol/L Troponin I <0.012 (0.000-0.034) ng/mL Total Protein 7.1 (6.3-8.2) g/dL Albumin 4.1 (3.5-5.0) g/dL Urine Color Urine Appearance (Clear) Urine pH (5.0-8.0) Ur Specific [place] (1.001-1.035) Urine Protein (Negative) Urine Glucose (UA) (Negative) Urine Ketones (Negative) Urine Blood (Negative) Urine Nitrite (Negative) Urine Bilirubin (Negative) Urine Urobilinogen (<2.0) mg/dL Ur Leukocyte Esterase (Negative) Urine RBC (0-5) /hpf Urine WBC (0-5) /hpf Ur Squamous Epith Cells (0-4) /hpf Urine Bacteria (None) /hpf Urine Opiates Screen (NotDetected) Ur Oxycodone Screen (NotDetected) Urine Methadone Screen (NotDetected) Ur Propoxyphene Screen (NotDetected) Ur Barbiturates Screen (NotDetected) U Tricyclic Antidepress (NotDetected) Ur Phencyclidine Scrn (NotDetected) Ur Amphetamines Screen (NotDetected) U Methamphetamines Scrn (NotDetected) U Benzodiazepines Scrn (NotDetected) Urine Cocaine Screen (NotDetected) U Marijuana (THC) Screen (NotDetected) Serum Alcohol <10 mg/dL Influenza Type A (PCR) (Not Detectd) Influenza Type B (PCR) (Not Detectd) RSV (PCR) (Not Detectd) SARS-CoV-2 (PCR) (Not Detectd) 09/10/22 09/10/22 Range/Units 01:43 02:14 WBC (3.8-10.6) k/uL RBC (3.80-5.40) m/uL Hgb (11.4-16.0) gm/dL Hct (34.0-46.0) % MCV (80.0-100.0) fL MCH (25.0-35.0) pg MCHC (31.0-37.0) g/dL RDW (11.5-15.5) % Plt Count (150-450) k/uL MPV Neutrophils % % Lymphocytes % % Monocytes % % Eosinophils % % Basophils % % Neutrophils # (1.3-7.7) k/uL Lymphocytes # (1.0-4.8) k/uL Monocytes # (0-1.0) k/uL Eosinophils # (0-0.7) k/uL Basophils # (0-0.2) k/uL PT (9.0-12.0) sec INR (<1.2) APTT (22.0-30.0) sec Sodium (137-145) mmol/L Potassium (3.5-5.1) mmol/L Chloride (98-107) mmol/L Carbon Dioxide (22-30) mmol/L Anion Gap mmol/L BUN (7-17) mg/dL Creatinine (0.52-1.04) mg/dL Est GFR (CKD-EPI)AfAm (>60 ml/min/1.73 sqM) Est GFR (CKD-EPI)NonAf (>60 ml/min/1.73 sqM) Glucose (74-99) mg/dL POC Glucose (mg/dL) (70-110) mg/dL POC Glu Branch Lead ID Calcium (8.4-10.2) mg/dL Total Bilirubin (0.2-1.3) mg/dL AST (14-36) U/L ALT (4-34) U/L Alkaline Phosphatase (38-126) U/L Ammonia (<30) umol/L Troponin I (0.000-0.034) ng/mL Total Protein (6.3-8.2) g/dL Albumin (3.5-5.0) g/dL Urine Color Yellow Urine Appearance Clear (Clear) Urine pH 5.5 (5.0-8.0) Ur Specific [place] 1.024 (1.001-1.035) Urine Protein Trace H (Negative) Urine Glucose (UA) Negative (Negative) Urine Ketones Negative (Negative) Urine Blood Negative (Negative) Urine Nitrite Negative (Negative) Urine Bilirubin Negative (Negative) Urine Urobilinogen <2.0 (<2.0) mg/dL Ur Leukocyte Esterase Large H (Negative) Urine RBC 2 (0-5) /hpf Urine WBC 10 H (0-5) /hpf Ur Squamous Epith Cells <1 (0-4) /hpf Urine Bacteria Rare H (None) /hpf Urine Opiates Screen Not Detected (NotDetected) Ur Oxycodone Screen Not Detected (NotDetected) Urine Methadone Screen Not Detected (NotDetected) Ur Propoxyphene Screen Not Detected (NotDetected) Ur Barbiturates Screen Not Detected (NotDetected) U Tricyclic Antidepress Not Detected (NotDetected) Ur Phencyclidine Scrn Not Detected (NotDetected) Ur Amphetamines Screen Not Detected (NotDetected) U Methamphetamines Scrn Not Detected (NotDetected) U Benzodiazepines Scrn Not Detected (NotDetected) Urine Cocaine Screen Not Detected (NotDetected) U Marijuana (THC) Screen Not Detected (NotDetected) Serum Alcohol mg/dL Influenza Type A (PCR) Not Detected (Not Detectd) Influenza Type B (PCR) Not Detected (Not Detectd) RSV (PCR) Not Detected (Not Detectd) SARS-CoV-2 (PCR) Not Detected (Not Detectd) - EKG Data -: EKG Interpreted by Me EKG Comments: 12-lead Electrocardiogram Interpretation Note EKG was reviewed and interpreted by myself. 12-lead ECG performed at 0127 is interpreted by me as revealing sinus bradycardia at a rate of 49 beats per minute. [place] is normal. Intervals 199 ms, QRS duration is 80 ms, QTc is 425 ms.. There were no ST or T wave abnormalities to suggest myocardial ischemia or injury. R wave progression across the precordium was satisfactory. By my interpretation this EKG is non-diagnostic for acute ischemia. When compared with prior EKGs from July 2022, no significant change. Disposition Clinical Impression: UTI (urinary tract infection) Disposition: HOME SELF-CARE Condition: Good Instructions (If sedation given, give patient instructions): Urinary Tract Infection in Women (ED), Urinary Tract Infection in Women (DC) Prescriptions: Nitrofurantoin Monohyd/M-Cryst [Macrobid] 100 mg PO Q12HR 7 Days #14 cap Is patient prescribed a controlled substance at d/c from ED?: No Referrals: Maryann Craig DO [Primary Care Provider] - 1-2 days Time of Disposition: 06:32
[2022-09-10 02:28] LABS: Basophils # (A) 0.1 k/uL (0-0.2); Basophils % (A) 1 %; Eosinophils # (A) 0.2 k/uL (0-0.7); Eosinophils % (A) 3 %; HCT 43.2 % (34.0-46.0); HGB 14.7 gm/dL (11.4-16.0); Lymphocytes # (A) 1.5 k/uL (1.0-4.8); Lymphocytes % (A) 18 %; MCH 30.9 pg (25.0-35.0); MCV 90.9 fL (80.0-100.0); Mean Platelet Volume 9.3; Monocytes # (A) 0.6 k/uL (0-1.0); Monocytes % (A) 8 %; Neutrophils # (A) 5.6 k/uL (1.3-7.7); Neutrophils % (A) 69 %; Platelet Count 211 k/uL (150-450); RBC 4.75 m/uL (3.80-5.40); WBC 8.1 k/uL (3.8-10.6)
[2022-09-10 02:37] LABS: ALT 17 U/L (4-34); AST 19 U/L (14-36); African American GFR (CKD) 76 (>60 ml/min/1.73 sqM); Albumin 4.1 g/dL (3.5-5.0); Alcohol <10 mg/dL; Alkaline Phosphatase 103 U/L (38-126); Anion Gap 4 mmol/L; Blood Urea Nitrogen 18 mg/dL (7-17); Calcium 10.4 mg/dL (8.4-10.2); Carbon Dioxide 30 mmol/L (22-30); Chloride 104 mmol/L (98-107); Glucose 106 mg/dL (74-99); INR 1.2 (<1.2); Non-African American GFR(CKD) 66 (>60 ml/min/1.73 sqM); Partial Thromboplastin Time 34.8 sec (22.0-30.0); Potassium 3.7 mmol/L (3.5-5.1); Prothrombin Time 12.4 sec (9.0-12.0); Sodium 138 mmol/L (137-145); Total Bilirubin 0.6 mg/dL (0.2-1.3); Total Protein 7.1 g/dL (6.3-8.2)
[2022-09-10 02:44] LABS: Appearance,Urine Clear (Clear); Bacteria,Urine Rare /hpf; Bilirubin,Urine Negative (Negative); Blood,Urine Negative (Negative); Color,Urine Yellow; Glucose,Urine (UA) Negative (Negative); Ketones,Urine Negative (Negative); Leukocyte Esterase,Urine Large (Negative); Nitrite,Urine Negative (Negative); PH, Urine 5.5 (5.0-8.0); Protein,Urine Trace (Negative); RBC,Urine 2 /hpf (0-5); Specific Gravity,Urine 1.024 (1.001-1.035); Squamous Epithelial Cell,Urine <1 /hpf (0-4); Urobilinogen,Urine <2.0 mg/dL (<2.0); WBC,Urine 10 /hpf (0-5)
[2022-09-10 02:47] LABS: Amphetamine Screen,Urine Not Detected (NotDetected); Barbiturate Screen,Urine Not Detected (NotDetected); Benzodiazepines Screen,Urine Not Detected (NotDetected); Cocaine Screen,Urine Not Detected (NotDetected); Methadone Screen, Urine Not Detected (NotDetected); Opiate Screen,Urine Not Detected (NotDetected); Oxycodone Screen, Urine Not Detected (NotDetected); Phencyclidine Screen,Urine Not Detected (NotDetected); Tricyclic Antidepressant,Urine Not Detected (NotDetected); Urn Cannabinoid Scrn Not Detected (NotDetected)
--- NOTE | 2022-09-10 04:14 | CT ---
EXAM: CT Head Without Intravenous Contrast CLINICAL HISTORY: ITS.REASON CT Reason: Altered mental status TECHNIQUE: Axial computed tomography images of the head/brain without intravenous contrast. CTDI is 49.2 mGy and DLP is 1092.4 mGy-cm. This CT exam was performed using one or more of the following dose reduction techniques: automated exposure control, adjustment of the mA and/or kV according to patient size, and/or use of iterative reconstruction technique. COMPARISON: No relevant prior studies available. FINDINGS: Brain: No hemorrhage or mass effect. Ventricles: No hydrocephalus. Bones/joints: Unremarkable. Soft tissues: Unremarkable. Sinuses: No air fluid level. Mastoid air cells: Clear. IMPRESSION: No acute hemorrhage, hydrocephalus, or mass effect.
--- NOTE | 2022-09-10 06:17 | XR ---
EXAMINATION TYPE: XR chest 1V portable DATE OF EXAM: 09/10/2022 3:25 AM COMPARISON: Chest radiographs from 08/06/2022 TECHNIQUE: XR chest 1V portable Frontal view of the chest. CLINICAL INDICATION:Female, 82 years old with history of altered mental status; FINDINGS: Lungs/Pleura: There is no evidence of pleural effusion, focal consolidation, or pneumothorax. Pulmonary vascularity: Unremarkable. Heart/mediastinum: Cardiomediastinal silhouette is enlarged and stable. Musculoskeletal: No acute osseous pathology. IMPRESSION: Stable cardiomegaly no significant change from prior. No acute cardiopulmonary disease/process.
[2022-09-10 06:23] VITALS: BP 147/57; PULSE 60; RESP 14
--- NOTE | 2022-09-10 06:27 | CT ---
EXAMINATION TYPE: CT abdomen pelvis w con CT DLP: 1750 mGycm, Automated exposure control for dose reduction was used. DATE OF EXAM: 09/10/2022 3:20 AM COMPARISON: CT abdomen pelvis most recent from CLINICAL INDICATION:Female, 82 years old with history of pain, acute, nonlocalized; TECHNIQUE: Axial CT of the abdomen and pelvis. Sagittal and coronal reformats were created on a [employer] workstation. Contrast used: mL of , 100 cc of Isovue-300 Oral contrast used: None FINDINGS: LOWER CHEST: Unremarkable ABDOMEN LIVER: Unremarkable GALLBLADDER AND BILE DUCTS: Gallstones in the gallbladder lumen. PANCREAS: Unremarkable. SPLEEN: Probable splenic cyst. ADRENAL GLANDS: Unremarkable. KIDNEYS AND URETERS: Nonobstructing 3 mm calculus on the right. The collecting systems are dilated eq ually and may be secondary to mass effect as the ureters into the pelvis. PELVIS BLADDER: Unremarkable REPRODUCTIVE: The uterus is not visualized and likely surgically absent. ABDOMEN & PELVIS STOMACH AND BOWEL: No evidence of bowel obstruction. Scattered colonic diverticula are seen throughou t the colon most pronounced lower colon. Small hiatal hernia is present. Post surgical changes involv ing the right side of the colon. PERITONEUM/RETROPERITONEUM: No evidence of pneumoperitoneum or free fluid. VASCULATURE: Moderate atherosclerotic calcifications are present throughout the abdominal aorta and i ts branches. No evidence of aortic aneurysm. MUSCULOSKELETAL: No acute osseous abnormalities, right hip arthroplasty which limits evaluation the p [place]. Multilevel disc degeneration changes of the spine with osteophyte formation disc space narrowi ng vacuum disc phenomenon and facet arthropathy. LYMPH NODES: No gross evidence for lymphadenopathy. SOFT TISSUE/ABDOMINAL WALL: Postsurgical changes anterior abdominal wall. IMPRESSION: 1. There is small bowel feces throughout the abdomen correlate for fecal stasis, otherwise, no defin itive evidence for acute abdominal process. 2. Cholelithiasis. 3. Colonic diverticulosis. No evidence for acute diverticulitis. 4. Postsurgical changes to the bowel and anterior abdominal wall. No evidence of bowel obstruction.
[2022-09-10] MEDS ORDERED: cefTRIAXone IN SWFI 1,000 MG/10 ML SYRINGE IVP STA (06:29)
== END 2022-09-10 06:51 | disposition home or self-care (01) ==
LOC: EC 00:25
DX: N39.0 Urinary tract infection, site not specified (principal); K57.30 Diverticulosis of large intestine without perforation or abscess without bleeding; K80.20 Calculus of gallbladder without cholecystitis without obstruction; I48.91 Unspecified atrial fibrillation; J44.9 Chronic obstructive pulmonary disease, unspecified; E11.9 Type 2 diabetes mellitus without complications; K21.9 Gastro-esophageal reflux disease without esophagitis; E78.5 Hyperlipidemia, unspecified; I10 Essential (primary) hypertension; M19.90 Unspecified osteoarthritis, unspecified site; E07.9 Disorder of thyroid, unspecified; F32.A Depression, unspecified; Z20.822 Contact with and (suspected) exposure to COVID-19; Z87.891 Personal history of nicotine dependence; Z88.0 Allergy status to penicillin; Z88.1 Allergy status to other antibiotic agents; Z88.2 Allergy status to sulfonamides; Z88.5 Allergy status to narcotic agent; Z88.8 Allergy status to other drugs, medicaments and biological substances; Z91.018 Allergy to other foods; Z79.890 Hormone replacement therapy; Z79.1 Long term (current) use of non-steroidal anti-inflammatories (NSAID); Z79.01 Long term (current) use of anticoagulants; Z79.84 Long term (current) use of oral hypoglycemic drugs; Z79.899 Other long term (current) drug therapy
CPT/HCPCS: 36415; 93005; 80053; 82140; 84484; 85025; 85610; 85730; 81001; 80306; 87636; 71045; 70450; 74177; 99284; 96374; 96361 ×5; G0480; J0696; Q9967; 80320

== ENCOUNTER 2022-10-19 20:13 | Emergency (ER) | payer MEDICARE, BC ==
[2022-10-19] MEDS ORDERED: traMADol 50 MG TAB PO STA (21:48)
--- NOTE | 2022-10-19 21:51 | ED ---
General Adult HPI - General Chief complaint: Skin/Abscess/Foreign Body Stated complaint: Sore on bottom Time Seen by Provider: 10/19/22 21:09 Source: family, RN notes reviewed Mode of arrival: wheelchair Limitations: altered mental status - History of Present Illness Initial comments: 82-year-old female presents emergency department with son for chief complaint of sore on her buttocks. Her son states that he noticed a sore earlier today when there is blood on the toilet seat. Patient states that she is in a lot of pain. Patient son states that patient was treated with IV antibiotics for this in July but it appears that the patient was actually being treated for a urinary tract infection at that time. The wound is about quarter size superficial, there is induration around the area which is blanchable. The area around the fold Patient doesn't take any pain medication on a daily basis. The patient has dementia but her son states that she is at her baseline mental status. - Related Data Home Medications Medication Instructions Recorded Confirmed Levothyroxine Sodium [Synthroid] 150 mcg PO SUTUWETHSA 09/30/13 08/06/22 Pravastatin Sodium [Pravachol] 80 mg PO HS 11/07/14 08/06/22 Multivitamins, Thera [Multivitamin 1 tab PO DAILY 06/01/18 08/06/22 (formulary)] Sotalol [Betapace] 80 mg PO BID 06/01/18 08/06/22 Ferrous Sulfate [Iron (65 MG 325 mg PO DAILY 06/16/18 08/06/22 Elemental)] Losartan/Hydrochlorothiazide 1 tab PO DAILY 08/18/18 08/06/22 [Losartan-Hctz 100-25 mg Tab] Donepezil [Aricept] 10 mg PO DAILY 06/22/21 08/06/22 Memantine [Namenda] 10 mg PO BID 06/22/21 08/06/22 Mirabegron [Myrbetriq] 50 mg PO DAILY 06/22/21 08/06/22 Sennosides-Docusate Sodium 1 tab PO HS 06/22/21 08/06/22 [Senokot-S] Cyanocobalamin [Vitamin B-12] 500 mcg PO DAILY 07/16/21 08/06/22 Rivaroxaban [Xarelto] 15 mg PO HS 07/16/21 08/06/22 Pantoprazole [Protonix] 40 mg PO BID 02/23/22 08/06/22 Levothyroxine Sodium [Synthroid] 125 mcg PO MOFR 06/05/22 08/06/22 Loratadine [Claritin] 10 mg PO DAILY 06/05/22 08/06/22 Nitroglycerin Sl Tabs [Nitrostat] 0.4 mg SUBLINGUAL Q5M PRN 06/05/22 08/06/22 Vortioxetine Hydrobromide 20 mg PO DAILY 06/05/22 08/06/22 [Trintellix] Previous Rx's Medication Instructions Recorded Acetaminophen [Tylenol Extra 500 mg PO Q8HR PRN #30 tablet 02/24/22 Strength] amLODIPine [Norvasc] 10 mg PO DAILY 30 Days #30 tab 06/09/22 Loperamide [Imodium] 2 mg PO QID PRN cap 08/08/22 Nitrofurantoin Monohyd/M-Cryst 100 mg PO Q12HR 7 Days #14 cap 09/10/22 [Macrobid] Cephalexin [Keflex] 500 mg PO Q6HR 5 Days #20 cap 10/19/22 Allergies Allergy/AdvReac Type Severity Reaction Status Date / Time azithromycin Allergy Rash/Hives Verified 10/19/22 20:20 [From Zithromax Z-Chau] codeine Allergy Unknown Verified 10/19/22 20:20 hydrochlorothiazide Allergy Unknown Verified 10/19/22 20:20 [From Dyazide] lincomycin HCl Allergy Unknown Verified 10/19/22 20:20 [From Lincocin] meperidine HCl [From Demerol] Allergy Unknown Verified 10/19/22 20:20 metronidazole [From Flagyl] Allergy Unknown Verified 10/19/22 20:20 Metronidazole HCl Allergy Unknown Verified 10/19/22 20:20 [From Flagyl] Penicillins Allergy Unknown Verified 10/19/22 20:20 Childhood Rvmvcki-[id number]-UfU Reductase Allergy Unknown Verified 10/19/22 20:20 Inhibitor Sulfa (Sulfonamide Allergy Unknown Verified 10/19/22 20:20 Antibiotics) tetracycline [Tetracycline] Allergy Unknown Verified 10/19/22 20:20 triamterene [From Dyazide] Allergy Unknown Verified 10/19/22 20:20 watermelon Allergy Swelling Verified 10/19/22 20:20 atorvastatin calcium AdvReac MUSCLE Verified 10/19/22 20:20 [From Lipitor] ACHES rosuvastatin calcium AdvReac MUSCLE Verified 10/19/22 20:20 [From Crestor] ACHES Review of Systems ROS Statement: Those systems with pertinent positive or pertinent negative responses have been documented in the HPI. ROS Other: All systems not noted in ROS Statement are negative. Past Medical History Past Medical History: Atrial Fibrillation, COPD, Dementia, Diabetes Mellitus, GERD/Reflux, Hyperlipidemia, Hypertension, Memory Impairment, Osteoarthritis (OA), Pneumonia, Thyroid Disorder Additional Past Medical History / Comment(s): Right hip infection w/wound vac in Jun.-tx. @[facility]-wound completely healed per son, SHINGLES TO RT FACE/EYE. diet controlled diabetes, osteoporosis, recent blood in stool,. ANEMIA WITH BLOOD TRANSFUSIONS. 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 Past Anesthesia/Blood Transfusion Reactions: No Reported Reaction Date of Last Stent Placement:: 2017 Past Psychological History: Unable to Obtain, Depression Smoking Status: Former smoker Past Alcohol Use History: None Reported Past Drug Use History: None Reported - Past Family History Daughter(s) Family Medical History: Cancer Father History Unknown: Yes Additional Family Medical History / Comment(s): BRAIN TUMOR Mother Family Medical History: Cancer General Exam Limitations: altered mental status (At Baseline) General appearance: alert, other (In pain) Head exam: Present: atraumatic, normocephalic, normal inspection Eye exam: Present: normal appearance, PERRL, EOMI. Absent: scleral icterus, conjunctival injection, periorbital swelling ENT exam: Present: normal exam, mucous membranes moist Neck exam: Present: normal inspection. Absent: tenderness, meningismus, lymphadenopathy Respiratory exam: Present: normal lung sounds bilaterally. Absent: respiratory distress, wheezes, rales, rhonchi, stridor Cardiovascular Exam: Present: regular rate, normal rhythm, normal heart sounds. Absent: systolic murmur, diastolic murmur, rubs, gallop, clicks GI/Abdominal exam: Present: soft, normal bowel sounds. Absent: distended, tenderness, guarding, rebound, rigid Extremities exam: Present: full ROM, normal capillary refill, other (Quarter- sized Stage II pressure ulcer on the right buttock, no discharge, mild induration around the). Absent: tenderness, pedal edema, joint swelling, calf tenderness Back exam: Present: normal inspection Neurological exam: Present: alert, other (@Baseline mental status) Psychiatric exam: Present: normal affect, normal mood Skin exam: Present: warm, dry, intact, normal color. Absent: rash Course Vital Signs 10/19/22 10/19/22 20:18 22:03 Temperature 98.1 F Pulse Rate 64 54 L Respiratory 18 18 Rate Blood Pressure 139/54 133/51 O2 Sat by Pulse 99 96 Oximetry Medical Decision Making - Medical Decision Making Was pt. sent in by a medical professional or institution (, PA, CORPORATE LAWYER, urgent care, hospital, or penitentiary...) When possible be specific @ -No Did you speak to anyone other than the patient for history (EMS, parent, family, police, friend...)? What history was obtained from this source @ -No Did you review nursing and triage notes (agree or disagree)? Why? @ -I reviewed and agree with nursing and triage notes Were old charts reviewed (outside hosp., previous admission, EMS record, old EKG, old radiological studies, urgent care reports/EKG's, penitentiary records)? Report findings @ -No old charts were reviewed Differential Diagnosis (chest pain, altered mental status, abdominal pain women, abdominal pain men, vaginal bleeding, weakness, fever, dyspnea, syncope, headache, dizziness, GI bleed, back pain, seizure, CVA, palpatations, mental he alth, musculoskeletal)? @ -Differential Musculoskeletal Muscular strain, contusion, ligament sprain, fracture, arthritis, septic arthritis, bursitis, cellulitis, muscle spasm, nerve compression, DVT, arterial occlusion, herpes zoster, electrolyte abnormality, tumor.... This is not meant to be in all inclusive list EKG interpreted by me (3pts min.). @ -None X-rays interpreted by me (1pt min.). @ -None done CT interpreted by me (1pt min.). @ -None done U/S interpreted by me (1pt. min.). @ -None done What testing was considered but not performed or refused? (CT, X-rays, U/S, labs)? Why? @ -None What meds were considered but not given or refused? Why? @ -None Did you discuss the management of the patient with other professionals (professionals i.e. , PA, CORPORATE LAWYER, lab, RT, psych nurse, social media director, incoming freight clerk, teacher, fire management officer, dependency case manager)? Give summary @ -No Was smoking cessation discussed for >3mins.? @ -No Was critical care preformed (if so, how long)? @ -No Were there social determinants of health that impacted care today? How? (Homelessness, low income, unemployed, alcoholism, drug addiction, molina sportation, low edu. Level, literacy, decrease access to med. care, skilled nursing, rehab)? @ -No Was there de-escalation of care discussed even if they declined (Discuss DNR or withdrawal of care, Hospice)? DNR status @ -No What co-morbidities impacted this encounter? (DM, HTN, Smoking, COPD, CAD, Cancer, CVA, ARF, Chemo, Hep., AIDS, mental health diagnosis, sleep apnea, morbid obesity)? @ -None Was patient admitted / discharged? Hospital course, mention meds given and route, prescriptions, significant lab abnormalities, going to OR and other pertinent info. @ -Discharged. Patient sent to emergency department chief complaint of right buttock pain and sore that was noticed today. Patient denies fever, chills. Vital signs stable. Patient is at her baseline mental status according to the patient's son. CBC and CMP within normal limits. wound culture was sent. Son was advised to make sure that the patient is rotating and not sitting for prolonged periods of time that the patient is able to get up and move around. Return precautions discussed with patient's son. Antibiotic was sent to the patient's pharmacy as the area appears to be mildly indurated. Patient discharged in stable condition. Case discussed with my attending, Dr. Shirley Undiagnosed new problem with uncertain prognosis? @ -No Drug Therapy requiring intensive monitoring for toxicity (Heparin, Nitro, Insulin, Cardizem)? @ -No Were any procedures done? @ -No Diagnosis/symptom? @ -Stage II pressure ulcer Acute, or Chronic, or Acute on Chronic? @ -Acute Uncomplicated (without systemic symptoms) or Complicated (systemic symptoms)? @ -uncomplicated Side effects of treatment? @ -No Exacerbation, Progression, or Severe Exacerbation? @ -No Poses a threat to life or bodily function? How? (Chest pain, [place], [place], pneumonia, PE, COPD, DKA, ARF, appy, cholecystitis, CVA, Diverticulitis, Homicidal, Suicidal, threat to staff... and all critical care pts) @ -No - Lab Data Result diagrams: 10/19/22 21:44 10/19/22 21:44 Lab Results 10/19/22 10/19/22 10/19/22 Range/Units 21:44 21:44 21:44 WBC 7.0 (3.8-10.6) k/uL RBC 4.01 (3.80-5.40) m/uL Hgb 12.9 (11.4-16.0) gm/dL Hct 37.4 (34.0-46.0) % MCV 93.2 (80.0-100.0) fL MCH 32.2 (25.0-35.0) pg MCHC 34.5 (31.0-37.0) g/dL RDW 13.2 (11.5-15.5) % Plt Count 148 L (150-450) k/uL MPV 10.4 Neutrophils % (Manual) 69 % Lymphocytes % (Manual) 23 % Monocytes % (Manual) 7 % Eosinophils % (Manual) 1 % Neutrophils # (Manual) 4.83 (1.3-7.7) k/uL Lymphocytes # (Manual) 1.61 (1.0-4.8) k/uL Monocytes # (Manual) 0.49 (0-1.0) k/uL Eosinophils # (Manual) 0.07 (0-0.7) k/uL Nucleated RBCs 0 (0-0) /100 WBC Manual Slide Review Performed Large Platelets Present Sodium 138 (137-145) mmol/L Potassium 4.2 (3.5-5.1) mmol/L Chloride 106 (98-107) mmol/L Carbon Dioxide 25 (22-30) mmol/L Anion Gap 7 mmol/L BUN 29 H (7-17) mg/dL Creatinine 0.78 (0.52-1.04) mg/dL Est GFR (CKD-EPI)AfAm 82 (>60 ml/min/1.73 sqM) Est GFR (CKD-EPI)NonAf 71 (>60 ml/min/1.73 sqM) Glucose 112 H (74-99) mg/dL Plasma Lactic Acid Ankit 1.2 (0.7-2.0) mmol/L Calcium 9.8 (8.4-10.2) mg/dL Total Bilirubin 0.7 (0.2-1.3) mg/dL AST 33 (14-36) U/L ALT 16 (4-34) U/L Alkaline Phosphatase 78 (38-126) U/L Total Protein 7.3 (6.3-8.2) g/dL Albumin 3.6 (3.5-5.0) g/dL Disposition Clinical Impression: Pressure ulcer, Cellulitis Disposition: HOME SELF-CARE Condition: Stable Instructions (If sedation given, give patient instructions): Pressure Injury (ED) Additional Instructions: Please follow-up with patient's primary care provider on Thursday. Return to the emergency department for new or worsening symptoms. Prescriptions: Cephalexin [Keflex] 500 mg PO Q6HR 5 Days #20 cap Is patient prescribed a controlled substance at d/c from ED?: No Referrals: Maryann Craig DO [Primary Care Provider] - 1-2 days Time of Disposition: 23:28
[2022-10-19 22:11] LABS: HCT 37.4 % (34.0-46.0); HGB 12.9 gm/dL (11.4-16.0); MCH 32.2 pg (25.0-35.0); MCHC 34.5 g/dL (31.0-37.0); MCV 93.2 fL (80.0-100.0); Mean Platelet Volume 10.4; Platelet Count 148 k/uL (150-450); RBC 4.01 m/uL (3.80-5.40); RDW 13.2 % (11.5-15.5)
[2022-10-19 22:19] LABS: Albumin 3.6 g/dL (3.5-5.0); Calcium 9.8 mg/dL (8.4-10.2); Total Bilirubin 0.7 mg/dL (0.2-1.3); Total Protein 7.3 g/dL (6.3-8.2)
[2022-10-19 22:22] LABS: Potassium 4.2 mmol/L (3.5-5.1)
[2022-10-19 22:45] LABS: Eosinophils # (M) 0.07 k/uL (0-0.7); Lymphocytes # (M) 1.61 k/uL (1.0-4.8); Monocytes # (M) 0.49 k/uL (0-1.0); Neutrophils # (M) 4.83 k/uL (1.3-7.7); Neutrophils % (M) 69 %; Nucleated Red Blood Cells 0 /100 WBC (0-0); Total Cells Counted 100
[2022-10-19 22:46] LABS: Large Platelets Present
[2022-10-19] MEDS ORDERED: CEPHALEXIN 500 MG CAP PO STA (23:23)
[2022-10-19 23:43] VITALS: BP 129/78; PULSE 69; RESP 16; TEMP 98.4
== END 2022-10-19 23:42 | disposition home or self-care (01) ==
LOC: EC 20:13
DX: L89.312 Pressure ulcer of right buttock, stage 2 (principal); I48.91 Unspecified atrial fibrillation; J44.9 Chronic obstructive pulmonary disease, unspecified; K21.9 Gastro-esophageal reflux disease without esophagitis; I25.2 Old myocardial infarction; M19.90 Unspecified osteoarthritis, unspecified site; E11.9 Type 2 diabetes mellitus without complications; E78.5 Hyperlipidemia, unspecified; I10 Essential (primary) hypertension; E07.9 Disorder of thyroid, unspecified; F32.A Depression, unspecified; Z87.891 Personal history of nicotine dependence; Z88.0 Allergy status to penicillin; Z88.1 Allergy status to other antibiotic agents; Z88.2 Allergy status to sulfonamides; Z88.5 Allergy status to narcotic agent; Z88.8 Allergy status to other drugs, medicaments and biological substances; Z79.890 Hormone replacement therapy; Z79.899 Other long term (current) drug therapy
CPT/HCPCS: 36415; 80053; 83605; 85025; 87070; 87205; 99283

== ENCOUNTER → 2022-10-21 | Outpatient (CLI) | payer MEDICARE, BC ==
--- NOTE | 2022-10-21 15:57 | US ---
EXAMINATION TYPE: US kidneys/renal and bladder DATE OF EXAM: 10/21/2022 COMPARISON: CT 2022 CLINICAL INDICATION: Female, 82 years old with history of N39.9 DISORDER OF URINARY SYSTEM, UNSPECIFI ED; EXAM MEASUREMENTS: Right Kidney: 10.4 x 4.4 x 4.7 cm Left Kidney: 8.9 x 4.7 x 5.0 cm Right Kidney: No hydronephrosis or masses seen , cortical medullary differentiation maintained. Left Kidney: No hydronephrosis or masses seen , cortical medullary differentiation maintained. Bladder: not full, patient voided just prior to exam There is no evidence for hydronephrosis at this point in time. No nephrolithiasis is seen. No sherif s are identified. The urinary bladder is anechoic. Bilateral ureteral jets are seen. IMPRESSION: No evidence for obstructive uropathy. Vertical medullary differentiation maintained.
== END | disposition home or self-care (01) ==
LOC: RADUSWWP 15:06
PROVIDERS: ATTEND Urology
DX: N39.0 Urinary tract infection, site not specified (principal)
CPT/HCPCS: 76770

== ENCOUNTER 2022-12-08 20:29 | Emergency (ER) | payer MEDICARE, BC ==
[2022-12-08 20:37] VITALS: TEMP 97.8
[2022-12-08] MEDS ORDERED: POLYMYXIN B-TRIMETHOPRIM SULF (10,000-1) OPHTH DROPS 10 ML BTL LEFT EYE STA (21:01)
--- NOTE | 2022-12-08 21:06 | ED ---
Eye Problem HPI - General Chief complaint: Eye Problems Stated complaint: Eye Problems, Sent by Urgent Care Source: patient Mode of arrival: wheelchair Limitations: no limitations - History of Present Illness Initial comments: This is a 82-year-old female to the emergency department for evaluation today. She presents today for evaluation of left eye pain no significant visual loss or changes no trauma surrounding redness of the left eye. Patient is concerned over eye pain. But denies any vision loss or vision changes. Patient does have swelling around left eye redness and tenderness to eyelid and area around left eye. Patient is crying in pain. MD chief complaint: eye pain, eye redness -: days(s) Onset Description: gradual Location: left eye Place: home If Injury: none Eye Symptoms: redness Severity: moderate Severity scale (1-10): 4 If Pain, Quality: sharp Consistency: constant Associated Symptoms: none Treatments Prior to Arrival: none - Related Data Patient Tetanus UTD: No Home Medications Medication Instructions Recorded Confirmed Levothyroxine Sodium [Synthroid] 150 mcg PO SUTUWETHSA 09/30/13 08/06/22 Pravastatin Sodium [Pravachol] 80 mg PO HS 11/07/14 08/06/22 Multivitamins, Thera [Multivitamin 1 tab PO DAILY 06/01/18 08/06/22 (formulary)] Sotalol [Betapace] 80 mg PO BID 06/01/18 08/06/22 Ferrous Sulfate [Iron (65 MG 325 mg PO DAILY 06/16/18 08/06/22 Elemental)] Losartan/Hydrochlorothiazide 1 tab PO DAILY 08/18/18 08/06/22 [Losartan-Hctz 100-25 mg Tab] Donepezil [Aricept] 10 mg PO DAILY 06/22/21 08/06/22 Memantine [Namenda] 10 mg PO BID 06/22/21 08/06/22 Mirabegron [Myrbetriq] 50 mg PO DAILY 06/22/21 08/06/22 Sennosides-Docusate Sodium 1 tab PO HS 06/22/21 08/06/22 [Senokot-S] Cyanocobalamin [Vitamin B-12] 500 mcg PO DAILY 07/16/21 08/06/22 Rivaroxaban [Xarelto] 15 mg PO HS 07/16/21 08/06/22 Pantoprazole [Protonix] 40 mg PO BID 02/23/22 08/06/22 Levothyroxine Sodium [Synthroid] 125 mcg PO MOFR 06/05/22 08/06/22 Loratadine [Claritin] 10 mg PO DAILY 06/05/22 08/06/22 Nitroglycerin Sl Tabs [Nitrostat] 0.4 mg SUBLINGUAL Q5M PRN 06/05/22 08/06/22 Vortioxetine Hydrobromide 20 mg PO DAILY 06/05/22 08/06/22 [Trintellix] Previous Rx's Medication Instructions Recorded Acetaminophen [Tylenol Extra 500 mg PO Q8HR PRN #30 tablet 02/24/22 Strength] amLODIPine [Norvasc] 10 mg PO DAILY 30 Days #30 tab 06/09/22 Loperamide [Imodium] 2 mg PO QID PRN cap 08/08/22 Nitrofurantoin Monohyd/M-Cryst 100 mg PO Q12HR 7 Days #14 cap 09/10/22 [Macrobid] Cephalexin [Keflex] 500 mg PO Q6HR 5 Days #20 cap 10/19/22 Allergies Allergy/AdvReac Type Severity Reaction Status Date / Time azithromycin Allergy Rash/Hives Verified 12/08/22 20:37 [From Zithromax Z-Chau] codeine Allergy Unknown Verified 12/08/22 20:37 hydrochlorothiazide Allergy Unknown Verified 12/08/22 20:37 [From Dyazide] lincomycin HCl Allergy Unknown Verified 12/08/22 20:37 [From Lincocin] meperidine HCl [From Demerol] Allergy Unknown Verified 12/08/22 20:37 metronidazole [From Flagyl] Allergy Unknown Verified 12/08/22 20:37 Metronidazole HCl Allergy Unknown Verified 12/08/22 20:37 [From Flagyl] Penicillins Allergy Unknown Verified 12/08/22 20:37 Childhood Yuknpce-DTV-XzU Reductase Allergy Unknown Verified 12/08/22 20:37 Inhibitor Sulfa (Sulfonamide Allergy Unknown Verified 12/08/22 20:37 Antibiotics) tetracycline [Tetracycline] Allergy Unknown Verified 12/08/22 20:37 triamterene [From Dyazide] Allergy Unknown Verified 12/08/22 20:37 watermelon Allergy Swelling Verified 12/08/22 20:37 atorvastatin calcium AdvReac MUSCLE Verified 12/08/22 20:37 [From Lipitor] ACHES rosuvastatin calcium AdvReac MUSCLE Verified 12/08/22 20:37 [From Crestor] ACHES Review of Systems ROS Statement: Those systems with pertinent positive or pertinent negative responses have been documented in the HPI. ROS Other: All systems not noted in ROS Statement are negative. Past Medical History Past Medical History: Atrial Fibrillation, COPD, Dementia, Diabetes Mellitus, GERD/Reflux, Hyperlipidemia, Hypertension, Memory Impairment, Osteoarthritis (OA), Pneumonia, Thyroid Disorder Additional Past Medical History / Comment(s): Right hip infection w/wound vac in Jun.-tx. @[facility]-wound completely healed per son, SHINGLES TO RT FACE/EYE. diet controlled diabetes, osteoporosis, recent blood in stool,. ANEMIA WITH BLOOD TRANSFUSIONS. 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 Past Anesthesia/Blood Transfusion Reactions: No Reported Reaction Date of Last Stent Placement:: 2017 Past Psychological History: Unable to Obtain, Depression Smoking Status: Former smoker Past Alcohol Use History: None Reported Past Drug Use History: None Reported - Past Family History Daughter(s) Family Medical History: Cancer Father History Unknown: Yes Additional Family Medical History / Comment(s): BRAIN TUMOR Mother Family Medical History: Cancer General Exam - General Exam Comments Initial Comments: Patient does have normal pressures both eyes Limitations: no limitations General appearance: alert, in no apparent distress Head exam: Present: atraumatic, normocephalic, normal inspection Eye exam: Present: PERRL, EOMI, conjunctival injection (Bilateral), other (No vision loss). Absent: scleral icterus, periorbital swelling ENT exam: Present: normal exam, mucous membranes moist Neck exam: Present: normal inspection. Absent: tenderness, meningismus, lymphadenopathy Respiratory exam: Present: normal lung sounds bilaterally. Absent: respiratory distress, wheezes, rales, rhonchi, stridor Cardiovascular Exam: Present: regular rate, normal rhythm, normal heart sounds. Absent: systolic murmur, diastolic murmur, rubs, gallop, clicks GI/Abdominal exam: Present: soft, normal bowel sounds. Absent: distended, tenderness, guarding, rebound, rigid Extremities exam: Present: normal inspection, full ROM, normal capillary refill. Absent: tenderness, pedal edema, joint swelling, calf tenderness Back exam: Present: normal inspection Neurological exam: Present: alert, oriented X3, CN II-XII intact Psychiatric exam: Present: normal affect, normal mood Skin exam: Present: warm, dry, intact, normal color. Absent: rash Course Vital Signs 12/08/22 12/08/22 20:32 22:46 Temperature 97.8 F 97.8 F Pulse Rate 60 58 L Respiratory 19 20 Rate Blood Pressure 158/69 163/76 O2 Sat by Pulse 97 93 L Oximetry - Reevaluation(s) Reevaluation #1: 12/09/22 00:18 Medical records reviewed Reevaluation #2: 12/09/22 00:19 Patient symptoms unchanged Reevaluation #3: 12/09/22 00:19 Patient informed results questions answered Reevaluation #4: 12/09/22 00:19 Was pt. sent in by a medical professional or institution? @ -no Did you speak to anyone other than the patient for history? @ -no Did you review nursing and triage notes? @ -agree Were old charts reviewed? @ -yes Differential Diagnosis? @ -prior EKG interpreted by me (3pts min.)? @ -no X-rays interpreted by me (1pt min.)? @ -no CT interpreted by me (1pt min.)? @ -no U/S interpreted by me (1pt. min.)? @ -no What testing was considered but not performed? (CT, X-rays, U/S, labs)? Why? @ -no What meds were considered but not given? Why? @ -no Did you discuss the management of the patient with other professionals? @ -no Did you reconcile home meds? @ -no Was smoking cessation discussed for >3mins.? @ -no Was critical care preformed (if so, how long)? @ -no Were there social determinants of health that impacted care today? How? (Homelessness, low income, unemployed, alcoholism, drug addiction, transportation, low edu. Level, literacy, decrease access to med. care, residential, rehab)? @ -no Was there de-escalation of care discussed even if they declined? (Discuss DNR or withdrawal of care, Hospice)? @ -no What co-morbidities impacted this encounter? (DM, HTN, Smoking, COPD, CAD, Cancer, CVA, Hep., AIDS, mental health diagnosis, sleep apnea, morbid obesity)? @ -none Was patient admitted / discharged? @ -82 female to the emergency department for evaluation of pain left eyelid swelling and redness patient does have some periorbital cellulitis and conjunctivitis placed on ocular drops and can be discharged home DIscharged Undiagnosed new problem with uncertain prognosis? @ -no Drug Therapy requiring intensive monitoring for toxicity (Heparin, Nitro, Ins ulin, Cardizem)? @ -no Were any procedures done? @ -no Diagnosis/symptom? @ -Preseptal cellulitis and conjunctivitis Acute, or Chronic, or Acute on Chronic? @ -acute Uncomplicated (without systemic symptoms) or Complicated (systemic symptoms)? @ -complicated Side effects of treatment? @ -no Exacerbation, Progression, or Severe Exacerbation] @ -no Poses a threat to life or bodily function? @ -yes could be vision loss with orbital cellulitis Reevaluation #5: 12/09/22 00:19 Patient has normal ocular pressures both eyes Medical Decision Making - Medical Decision Making 82 female to the emergency department for evaluation of pain left eyelid swelling and redness patient does have some periorbital cellulitis and conjunctivitis placed on ocular drops and can be discharged home - Radiology Data Radiology results: report reviewed (CT orbits negative for acute disease CT brain negative for acute disease), image reviewed Disposition Clinical Impression: Bacterial conjunctivitis, Periorbital cellulitis, Left eye pain, Preseptal cellulitis of left eye Disposition: HOME SELF-CARE Condition: Good Instructions (If sedation given, give patient instructions): Periorbital Cellulitis in Adults (ED) Is patient prescribed a controlled substance at d/c from ED?: No Referrals: Maryann Craig DO [Primary Care Provider] - 1-2 days Time of Disposition: 22:25
--- NOTE | 2022-12-08 22:08 | CT ---
EXAMINATION TYPE: CT brain wo con, CT orbits wo con CT DLP: Combined DLP of 1127.4 mGycm, Automated exposure control for dose reduction was used. DATE OF EXAM: 12/08/2022 9:50 PM COMPARISON: 09/10/2022. CLINICAL INDICATION:Female, 82 years old with history of pain, pt arrives to ED for c/o L eye pain. p t coming from urgent care. pt states she feels like something is moving in her vision in L eye. TECHNIQUE: Brain: Axial CT images of the brain were obtained with coronal and sagittal reformats created and rev iewed. Orbits axial imaging of the orbits with sagittal coronal reformats. Contrast used: None. Oral contrast used: None. FINDINGS: Brain: Extra-axial spaces: No abnormal extra-axial fluid collections. Ventricular system: Dilatation in proportion to cerebral atrophy. Cerebral parenchyma: Cerebral atrophy. No acute intraparenchymal hemorrhage or mass effect. The serrano -white junction is well differentiated. Scattered hypoattenuating areas are seen within the white mat ter. Cerebellum: Cerebellar atrophy Mass effect: No evidence of midline shift. Intracranial vasculature: Atherosclerotic calcifications of the intracranial vessels. Soft tissues: Normal. Calvarium/osseous structures: No depressed skull fracture. Paranasal sinuses and mastoid air cells: Mild scattered paranasal sinus disease. Orbits: The globes have a normal contour. The lenses have been surgically removed. Orbital chavez appear intac t. The orbital fat is unremarkable. Extraocular muscles are within normal limits. No radiopaque for eign bodies. Vascular sclerosis is noted to the internal carotid arteries. The osseous structures are unremarkabl e. IMPRESSION: 1. No acute intracranial process. 2. Nonspecific white matter changes, likely secondary to chronic small vessel ischemic disease. 3. Internal cerebral atrophy changes with proportional dilation of ventricular system. 4. No evidence for orbital fracture or acute abnormality involving the globes. The globes appear symm etric.
[2022-12-08 22:48] VITALS: BP 163/76; PULSE 58; RESP 20
== END 2022-12-08 22:46 | disposition home or self-care (01) ==
LOC: EC 20:29
DX: H10.89 Other conjunctivitis (principal); L03.213 Periorbital cellulitis; E11.9 Type 2 diabetes mellitus without complications; E78.5 Hyperlipidemia, unspecified; I10 Essential (primary) hypertension; I25.2 Old myocardial infarction; I48.91 Unspecified atrial fibrillation; J44.9 Chronic obstructive pulmonary disease, unspecified; K21.9 Gastro-esophageal reflux disease without esophagitis; M19.90 Unspecified osteoarthritis, unspecified site; F32.A Depression, unspecified; Z79.899 Other long term (current) drug therapy; Z79.890 Hormone replacement therapy; Z88.0 Allergy status to penicillin; Z88.1 Allergy status to other antibiotic agents; Z88.2 Allergy status to sulfonamides; Z88.5 Allergy status to narcotic agent; Z88.8 Allergy status to other drugs, medicaments and biological substances; Z87.891 Personal history of nicotine dependence
CPT/HCPCS: 70450; 70480; 99283

== ENCOUNTER 2022-12-24 10:36 | Inpatient (IN) | payer MEDICARE, BC ==
--- NOTE | 2022-12-24 12:34 | ED ---
General Adult HPI - General Chief complaint: Weakness Stated complaint: Weakness Time Seen by Provider: 12/24/22 11:12 Source: patient, RN notes reviewed, old records reviewed Mode of arrival: EMS Limitations: no limitations - History of Present Illness Initial comments: This is a 82-year-old female who presents emergency Department with the son son gives almost all the history. Son states last night that the patient was normal. Patient did have a urinary tract infection started on Macrobid yesterday. According to the son the patient got up this morning was extremely fatigued and tired and this is why she brought her in. Patient denies any spe cific area of pain. Patient states she just doesn't feel good all over. Patient denies any fever chills. Patient denies abdominal pain patient denies any chest pain and states that she does feel little short of breath. Patient denies any back pain. Patient denies any dysuria hematuria urinary frequency. - Related Data Home Medications Medication Instructions Recorded Confirmed Levothyroxine Sodium [Synthroid] 150 mcg PO SUTUWETHSA 09/30/13 12/24/22 Pravastatin Sodium [Pravachol] 80 mg PO HS 11/07/14 12/24/22 Multivitamins, Thera [Multivitamin 1 tab PO DAILY 06/01/18 12/24/22 (formulary)] Sotalol [Betapace] 80 mg PO BID 06/01/18 12/24/22 Ferrous Sulfate [Iron (65 MG 325 mg PO DAILY 06/16/18 12/24/22 Elemental)] Losartan/Hydrochlorothiazide 1 tab PO DAILY 08/18/18 12/24/22 [Losartan-Hctz 100-25 mg Tab] Donepezil [Aricept] 10 mg PO DAILY 06/22/21 12/24/22 Memantine [Namenda] 10 mg PO BID 06/22/21 12/24/22 Mirabegron [Myrbetriq] 50 mg PO DAILY 06/22/21 12/24/22 Sennosides-Docusate Sodium 1 tab PO HS 06/22/21 12/24/22 [Senokot-S] Cyanocobalamin [Vitamin B-12] 500 mcg PO DAILY 07/16/21 12/24/22 Rivaroxaban [Xarelto] 15 mg PO HS 07/16/21 12/24/22 Pantoprazole [Protonix] 40 mg PO BID 02/23/22 12/24/22 Levothyroxine Sodium [Synthroid] 125 mcg PO MOFR 06/05/22 12/24/22 Loratadine [Claritin] 10 mg PO DAILY 06/05/22 12/24/22 Nitroglycerin Sl Tabs [Nitrostat] 0.4 mg SL Q5M PRN 06/05/22 12/24/22 Vortioxetine Hydrobromide 20 mg PO DAILY 06/05/22 12/24/22 [Trintellix] Methenamine Hippurate 1 gm PO BID 12/24/22 12/24/22 Nitrofurantoin Monohyd/M-Cryst 100 mg PO BID 12/24/22 12/24/22 [Macrobid] Previous Rx's Medication Instructions Recorded Acetaminophen [Tylenol Extra 500 mg PO Q8HR PRN #30 tablet 02/24/22 Strength] amLODIPine [Norvasc] 10 mg PO DAILY 30 Days #30 tab 06/09/22 Loperamide [Imodium] 2 mg PO QID PRN cap 08/08/22 Allergies Allergy/AdvReac Type Severity Reaction Status Date / Time azithromycin Allergy Rash/Hives Verified 12/24/22 13:02 [From Zithromax Z-Chau] codeine Allergy Unknown Verified 12/24/22 13:02 hydrochlorothiazide Allergy Unknown Verified 12/24/22 13:02 [From Dyazide] lincomycin HCl Allergy Unknown Verified 12/24/22 13:02 [From Lincocin] meperidine HCl [From Demerol] Allergy Unknown Verified 12/24/22 13:02 metronidazole [From Flagyl] Allergy Unknown Verified 12/24/22 13:02 Metronidazole HCl Allergy Unknown Verified 12/24/22 13:02 [From Flagyl] Penicillins Allergy Unknown Verified 12/24/22 13:02 Childhood Pwrvnxa-UFM-TxM Reductase Allergy Unknown Verified 12/24/22 13:02 Inhibitor Sulfa (Sulfonamide Allergy Unknown Verified 12/24/22 13:02 Antibiotics) tetracycline [Tetracycline] Allergy Unknown Verified 12/24/22 13:02 triamterene [From Dyazide] Allergy Unknown Verified 12/24/22 13:02 watermelon Allergy Swelling Verified 12/24/22 13:02 atorvastatin calcium AdvReac MUSCLE Verified 12/24/22 13:02 [From Lipitor] ACHES rosuvastatin calcium AdvReac MUSCLE Verified 12/24/22 13:02 [From Crestor] ACHES Review of Systems ROS Statement: Those systems with pertinent positive or pertinent negative responses have been documented in the HPI. ROS Other: All systems not noted in ROS Statement are negative. Past Medical History Past Medical History: Atrial Fibrillation, COPD, Dementia, Diabetes Mellitus, GERD/Reflux, Hyperlipidemia, Hypertension, Memory Impairment, Osteoarthritis (OA), Pneumonia, Thyroid Disorder Additional Past Medical History / Comment(s): Right hip infection w/wound vac in Jun.-tx. @[facility]-wound completely healed per son, SHINGLES TO RT FACE/EYE. diet controlled diabetes, osteoporosis, recent blood in stool,. ANEMIA WITH BLOOD TRANSFUSIONS. 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 Past Anesthesia/Blood Transfusion Reactions: No Reported Reaction Date of Last Stent Placement:: 2017 Past Psychological History: Unable to Obtain, Depression Smoking Status: Former smoker Past Alcohol Use History: None Reported Past Drug Use History: None Reported - Past Family History Daughter(s) Family Medical History: Cancer Father History Unknown: Yes Additional Family Medical History / Comment(s): BRAIN TUMOR Mother Family Medical History: Cancer General Exam - General Exam Comments Initial Comments: GENERAL: Patient is well-developed and well-nourished. Patient is nontoxic and well- hydrated and is in mild distress. ENT: Neck is soft and supple. No significant lymphadenopathy is noted. Oropharynx is clear. Moist mucous membranes. Neck has full range of motion without eliciting any pain. EYES: The sclera were anicteric and conjunctiva were pink and moist. Extraocular movements were intact and pupils were equal round and reactive to light. Eyelids were unremarkable. PULMONARY: Unlabored respirations. Good breath sounds bilaterally. No audible rales rhonchi or wheezing was noted. CARDIOVASCULAR: There is a regular rate and rhythm without any murmurs gallops or rubs. ABDOMEN: Patient has diffuse abdominal pain. SKIN: Skin is clear with no lesions or rashes and otherwise unremarkable. NEUROLOGIC: Patient is alert and oriented x3. Cranial nerves II through XII are grossly intact. Motor and sensory are also intact. Normal speech, volume and content. Symmetrical smile. MUSCULOSKELETAL: Normal extremities with adequate strength and full range of motion. LYMPHATICS: No significant lymphadenopathy is noted PSYCHIATRIC: Normal psychiatric evaluation. Limitations: no limitations Course Vital Signs 12/24/22 12/24/22 11:25 14:03 Temperature 98.2 F Pulse Rate 52 L 58 L Respiratory 30 H 30 H Rate Blood Pressure 133/53 164/58 O2 Sat by Pulse 98 98 Oximetry Medical Decision Making - Medical Decision Making EKG was interpreted by myself shows a sinus bradycardia 51 bpm [place] interval is 175 QRSs 89 QT interval 474 QTC is 451 per patient's EKG shows no ST segment elevation or depression. I compared to previous EKG the bradycardia has been long-standing Was pt. sent in by a medical professional or institution (, PA, THERMAL SPRAY OPERATOR, urgent care, hospital, or custodial...) When possible be specific @ -No Did you speak to anyone other than the patient for history (EMS, parent, family, police, friend...)? What history was obtained from this source @ -No Did you review nursing and triage notes (agree or disagree)? Why? @ -I reviewed and agree with nursing and triage notes Were old charts reviewed (outside hosp., previous admission, EMS record, old EKG, old radiological studies, urgent care reports/EKG's, custodial records)? Report findings @ -I reviewed prior charts and prior lab work on this patient Differential Diagnosis (chest pain, altered mental status, abdominal pain women, abdominal pain men, vaginal bleeding, weakness, fever, dyspnea, syncope, headache, dizziness, GI bleed, back pain, seizure, CVA, palpatations, mental health, musculoskeletal)? @ -Differential Altered Mental Status: Hypoglycemia, DKA, hypercapnia, ETOH, overdose, CO poisoning, trauma, myxedema coma, HTN encephalopathy, infection, encephalitis, psychosis, intercranial hemorrhage, hepatic encephalopathy, meningitis, CVA, this is not meant to be an all-inclusive list EKG interpreted by me (3pts min.). @ -As above X-rays interpreted by me (1pt min.). @ -Chest x-ray shows no acute abnormality CT interpreted by me (1pt min.). @ -None done U/S interpreted by me (1pt. min.). @ -None done What testing was considered but not performed or refused? (CT, X-rays, U/S, labs)? Why? @ -None What meds were considered but not given or refused? Why? @ -None Did you discuss the management of the patient with other professionals (professionals i.e. , PA, THERMAL SPRAY OPERATOR, lab, RT, psych nurse, social media job titles, hydrodynamics professor, teacher, property officer, block and case maker)? Give summary @ -I spoke with Dr. villegas he agreed to admit the patient admitted the patient I wrote admitting orders Was smoking cessation discussed for >3mins.? @ -No Was critical care preformed (if so, how long)? @ -No Were there social determinants of health that impacted care today? How? (Homelessness, low income, unemployed, alcoholism, drug addiction, transportation, low edu. Level, literacy, decrease access to med. care, senior living, rehab)? @ -No Was there de-escalation of care discussed even if they declined (Discuss DNR or withdrawal of care, Hospice)? DNR status @ -No What co-morbidities impacted this encounter? (DM, HTN, Smoking, COPD, CAD, Cancer, CVA, ARF, Chemo, Hep., AIDS, mental health diagnosis, sleep apnea, morbid obesity)? @ -None Was patient admitted / discharged? Hospital course, mention meds given and route, prescriptions, significant lab abnormalities, going to OR and other pertinent info. @ -Patient had a urinary tract infection with a high white count patient started on 2 g of Rocephin and I spoke with Dr. James agreed to admit the patient admitted the patient wrote admitting orders. Undiagnosed new problem with uncertain prognosis? @ -No Drug Therapy requiring intensive monitoring for toxicity (Heparin, Nitro, Insulin, Cardizem)? @ -No Were any procedures done? @ -No Diagnosis/symptom? @ -Urinary tract infection Acute, or Chronic, or Acute on Chronic? @ -Acute Uncomplicated (without systemic symptoms) or Complicated (systemic symptoms)? @ -Complicated Side effects of treatment? @ -No Exacerbation, Progression, or Severe Exacerbation? @ -No Poses a threat to life or bodily function? How? (Chest pain, [place], NH, pneumonia, PE, COPD, DKA, ARF, appy, cholecystitis, CVA, Diverticulitis, Homicidal, Suicidal, threat to staff... and all critical care pts) @ -Yes this could lead to sepsis and endocarditis function Diagnosis/symptom? @ -Altered mental status Acute, or Chronic, or Acute on Chronic? @ -Acute Uncomplicated (without systemic symptoms) or Complicated (systemic symptoms)? @ -Complicated Side effects of treatment? @ -none Exacerbation, Progression, or Severe Exacerbation] @ -no Poses a threat to life or bodily function? @ -no - Lab Data Result diagrams: 12/24/22 12:49 12/24/22 12:49 Lab Results 12/24/22 12/24/22 12/24/22 Range/Units 12:49 12:49 12:49 WBC 22.8 H (3.8-10.6) k/uL RBC 4.65 (3.80-5.40) m/uL Hgb 14.6 (11.4-16.0) gm/dL Hct 42.4 (34.0-46.0) % MCV 91.3 (80.0-100.0) fL MCH 31.5 (25.0-35.0) pg MCHC 34.5 (31.0-37.0) g/dL RDW 13.0 (11.5-15.5) % Plt Count 223 (150-450) k/uL MPV 10.4 Neutrophils % 90 % Lymphocytes % 4 % Monocytes % 4 % Eosinophils % 1 % Basophils % 0 % Neutrophils # 20.5 H (1.3-7.7) k/uL Lymphocytes # 1.0 (1.0-4.8) k/uL Monocytes # 0.9 (0-1.0) k/uL Eosinophils # 0.2 (0-0.7) k/uL Basophils # 0.1 (0-0.2) k/uL PT 11.3 (9.0-12.0) sec INR 1.1 (<1.2) APTT 28.1 (22.0-30.0) sec Sodium (137-145) mmol/L Potassium (3.5-5.1) mmol/L Chloride (98-107) mmol/L Carbon Dioxide (22-30) mmol/L Anion Gap mmol/L BUN (7-17) mg/dL Creatinine (0.52-1.04) mg/dL Est GFR (CKD-EPI)AfAm (>60 ml/min/1.73 sqM) Est GFR (CKD-EPI)NonAf (>60 ml/min/1.73 sqM) Glucose (74-99) mg/dL Lactic Ac Sepsis Rflx Plasma Lactic Acid Ankit (0.7-2.0) mmol/L Calcium (8.4-10.2) mg/dL Total Bilirubin (0.2-1.3) mg/dL AST (14-36) U/L ALT (4-34) U/L Alkaline Phosphatase (38-126) U/L Total Protein (6.3-8.2) g/dL Albumin (3.5-5.0) g/dL Urine Color Light Red Urine Appearance Clear (Clear) Urine pH 5.5 (5.0-8.0) Ur Specific [place] 1.014 (1.001-1.035) Urine Protein Trace H (Negative) Urine Glucose (UA) Negative (Negative) Urine Ketones Negative (Negative) Urine Blood Negative (Negative) Urine Nitrite Negative (Negative) Urine Bilirubin Negative (Negative) Urine Urobilinogen <2.0 (<2.0) mg/dL Ur Leukocyte Esterase Large H (Negative) Urine RBC 1 (0-5) /hpf Urine WBC 26 H (0-5) /hpf Ur Squamous Epith Cells 1 (0-4) /hpf Urine Bacteria Rare H (None) /hpf Hyaline Casts 7 H (0-2) /lpf Urine Mucus Occasional H (None) /hpf Influenza Type A (PCR) (Not Detectd) Influenza Type B (PCR) (Not Detectd) RSV (PCR) (Not Detectd) SARS-CoV-2 (PCR) (Not Detectd) 12/24/22 12/24/22 12/24/22 Range/Units 12:49 12:49 12:49 WBC (3.8-10.6) k/uL RBC (3.80-5.40) m/uL Hgb (11.4-16.0) gm/dL Hct (34.0-46.0) % MCV (80.0-100.0) fL MCH (25.0-35.0) pg MCHC (31.0-37.0) g/dL RDW (11.5-15.5) % Plt Count (150-450) k/uL MPV Neutrophils % % Lymphocytes % % Monocytes % % Eosinophils % % Basophils % % Neutrophils # (1.3-7.7) k/uL Lymphocytes # (1.0-4.8) k/uL Monocytes # (0-1.0) k/uL Eosinophils # (0-0.7) k/uL Basophils # (0-0.2) k/uL PT (9.0-12.0) sec INR (<1.2) APTT (22.0-30.0) sec Sodium 140 (137-145) mmol/L Potassium 3.1 L (3.5-5.1) mmol/L Chloride 106 (98-107) mmol/L Carbon Dioxide 26 (22-30) mmol/L Anion Gap 8 mmol/L BUN 19 H (7-17) mg/dL Creatinine 0.84 (0.52-1.04) mg/dL Est GFR (CKD-EPI)AfAm 75 (>60 ml/min/1.73 sqM) Est GFR (CKD-EPI)NonAf 65 (>60 ml/min/1.73 sqM) Glucose 203 H (74-99) mg/dL Lactic Ac Sepsis Rflx Plasma Lactic Acid Ankit 3.0 H* (0.7-2.0) mmol/L Calcium 9.4 (8.4-10.2) mg/dL Total Bilirubin 1.0 (0.2-1.3) mg/dL AST 20 (14-36) U/L ALT 17 (4-34) U/L Alkaline Phosphatase 89 (38-126) U/L Total Protein 6.7 (6.3-8.2) g/dL Albumin 3.4 L (3.5-5.0) g/dL Urine Color Urine Appearance (Clear) Urine pH (5.0-8.0) Ur Specific [place] (1.001-1.035) Urine Protein (Negative) Urine Glucose (UA) (Negative) Urine Ketones (Negative) Urine Blood (Negative) Urine Nitrite (Negative) Urine Bilirubin (Negative) Urine Urobilinogen (<2.0) mg/dL Ur Leukocyte Esterase (Negative) Urine RBC (0-5) /hpf Urine WBC (0-5) /hpf Ur Squamous Epith Cells (0-4) /hpf Urine Bacteria (None) /hpf Hyaline Casts (0-2) /lpf Urine Mucus (None) /hpf Influenza Type A (PCR) Not Detected (Not Detectd) Influenza Type B (PCR) Not Detected (Not Detectd) RSV (PCR) Not Detected (Not Detectd) SARS-CoV-2 (PCR) Not Detected (Not Detectd) 12/24/22 Range/Units 13:54 WBC (3.8-10.6) k/uL RBC (3.80-5.40) m/uL Hgb (11.4-16.0) gm/dL Hct (34.0-46.0) % MCV (80.0-100.0) fL MCH (25.0-35.0) pg MCHC (31.0-37.0) g/dL RDW (11.5-15.5) % Plt Count (150-450) k/uL MPV Neutrophils % % Lymphocytes % % Monocytes % % Eosinophils % % Basophils % % Neutrophils # (1.3-7.7) k/uL Lymphocytes # (1.0-4.8) k/uL Monocytes # (0-1.0) k/uL Eosinophils # (0-0.7) k/uL Basophils # (0-0.2) k/uL PT (9.0-12.0) sec INR (<1.2) APTT (22.0-30.0) sec Sodium (137-145) mmol/L Potassium (3.5-5.1) mmol/L Chloride (98-107) mmol/L Carbon Dioxide (22-30) mmol/L Anion Gap mmol/L BUN (7-17) mg/dL Creatinine (0.52-1.04) mg/dL Est GFR (CKD-EPI)AfAm (>60 ml/min/1.73 sqM) Est GFR (CKD-EPI)NonAf (>60 ml/min/1.73 sqM) Glucose (74-99) mg/dL Lactic Ac Sepsis Rflx Y Plasma Lactic Acid Ankit (0.7-2.0) mmol/L Calcium (8.4-10.2) mg/dL Total Bilirubin (0.2-1.3) mg/dL AST (14-36) U/L ALT (4-34) U/L Alkaline Phosphatase (38-126) U/L Total Protein (6.3-8.2) g/dL Albumin (3.5-5.0) g/dL Urine Color Urine Appearance (Clear) Urine pH (5.0-8.0) Ur Specific [place] (1.001-1.035) Urine Protein (Negative) Urine Glucose (UA) (Negative) Urine Ketones (Negative) Urine Blood (Negative) Urine Nitrite (Negative) Urine Bilirubin (Negative) Urine Urobilinogen (<2.0) mg/dL Ur Leukocyte Esterase (Negative) Urine RBC (0-5) /hpf Urine WBC (0-5) /hpf Ur Squamous Epith Cells (0-4) /hpf Urine Bacteria (None) /hpf Hyaline Casts (0-2) /lpf Urine Mucus (None) /hpf Influenza Type A (PCR) (Not Detectd) Influenza Type B (PCR) (Not Detectd) RSV (PCR) (Not Detectd) SARS-CoV-2 (PCR) (Not Detectd) Disposition Clinical Impression: Urinary tract infection, Altered mental status Disposition: ADMITTED IP TO THIS HOSP Referrals: Maryann Craig DO [Primary Care Provider] - 1-2 days Time of Disposition: 16:59
[2022-12-24] MEDS: SODIUM CHLORIDE 0.9% 500 ML 500 ML IV SCH ×2 (12:47→13:17)
[2022-12-24 13:36] LABS: INR 1.1 (<1.2); Partial Thromboplastin Time 28.1 sec (22.0-30.0); Prothrombin Time 11.3 sec (9.0-12.0)
[2022-12-24 13:44] LABS: ALT 17 U/L (4-34); AST 20 U/L (14-36); African American GFR (CKD) 75 (>60 ml/min/1.73 sqM); Albumin 3.4 g/dL (3.5-5.0); Alkaline Phosphatase 89 U/L (38-126); Anion Gap 8 mmol/L; Blood Urea Nitrogen 19 mg/dL (7-17); Calcium 9.4 mg/dL (8.4-10.2); Carbon Dioxide 26 mmol/L (22-30); Chloride 106 mmol/L (98-107); Glucose 203 mg/dL (74-99); Non-African American GFR(CKD) 65 (>60 ml/min/1.73 sqM); Potassium 3.1 mmol/L (3.5-5.1); Sodium 140 mmol/L (137-145); Total Protein 6.7 g/dL (6.3-8.2)
[2022-12-24 13:53] LABS: Basophils # (A) 0.1 k/uL (0-0.2); Basophils % (A) 0 %; Eosinophils # (A) 0.2 k/uL (0-0.7); Eosinophils % (A) 1 %; HCT 42.4 % (34.0-46.0); HGB 14.6 gm/dL (11.4-16.0); Lymphocytes % (A) 4 %; MCH 31.5 pg (25.0-35.0); MCHC 34.5 g/dL (31.0-37.0); MCV 91.3 fL (80.0-100.0); Mean Platelet Volume 10.4; Monocytes # (A) 0.9 k/uL (0-1.0); Monocytes % (A) 4 %; Neutrophils # (A) 20.5 k/uL (1.3-7.7); Neutrophils % (A) 90 %; Platelet Count 223 k/uL (150-450); RBC 4.65 m/uL (3.80-5.40); WBC 22.8 k/uL (3.8-10.6)
[2022-12-24] MEDS ORDERED: cefTRIAXone IN SWFI 1,000 MG/10 ML SYRINGE IVP STA (14:15)
[2022-12-24 14:27] LABS: Appearance,Urine Clear (Clear); Bacteria,Urine Rare /hpf; Bilirubin,Urine Negative (Negative); Blood,Urine Negative (Negative); Color,Urine Light Red; Glucose,Urine (UA) Negative (Negative); Hyaline Casts,Urine 7 /lpf (0-2); Ketones,Urine Negative (Negative); Leukocyte Esterase,Urine Large (Negative); Mucus,Urine Occasional /hpf; Nitrite,Urine Negative (Negative); PH, Urine 5.5 (5.0-8.0); Protein,Urine Trace (Negative); RBC,Urine 1 /hpf (0-5); Specific Gravity,Urine 1.014 (1.001-1.035); Squamous Epithelial Cell,Urine 1 /hpf (0-4); Urobilinogen,Urine <2.0 mg/dL (<2.0); WBC,Urine 26 /hpf (0-5)
--- NOTE | 2022-12-24 14:59 | CT ---
EXAMINATION TYPE: CT abdomen pelvis w con DATE OF EXAM: 12/24/2022 COMPARISON: 09/10/2022 INDICATION: Diffuse abdominal pain DLP: 1897.4 mGycm, Automated exposure control for dose reduction was used. CONTRAST: 100 mL of Isovue 300. Study performed without Oral Contrast TECHNIQUE: Axial images were obtained from above the diaphragm to the pubic rami in the axial plane a t 5 mm thick sections. Reconstructed images are reviewed on the computer in the coronal plane. FINDINGS: Limited CT sections are obtained the lung bases. The lung bases are clear. CT ABDOMEN: Liver: Normal Spleen: Cyst is within the spleen. Pancreas: Normal Adrenal glands: The adrenal glands are normal. Gallbladder: Unremarkable . Previous gallstones are poorly visualized on the current examination. Kidneys: No masses are evident. No hydronephrosis is present. No cysts are present. Delayed images were obtained through the kidneys, which remain unremarkable. Aorta: Vascular calcification is within the aorta. Inferior vena cava: Normal. CT PELVIS: Pelvis is limited due to right hip prosthesis. Loops of bowel within the abdomen and pelvis are normal. Study is without oral contrast limiting Bowel evaluation.There may be a small bowel ascending colon anastomosis. Appendix: Not identified. No dilated tubular structure or inflammatory changes are evident. Urinary bladder: Normal. Genitourinary structures: Uterus and ovaries are not identified. Osseous structures: No suspicious lytic or sclerotic lesions. IMPRESSIONS: 1. Splenic cyst present previously. 2. No acute abnormality to account for patient's symptoms.
[2022-12-24] MEDS ORDERED: NON FORMULARY DRUG (Levothyroxine Sodium [Synthroid] 150 MCG Tablet) PO SCH (16:15)
--- NOTE | 2022-12-24 16:43 | XR ---
EXAMINATION TYPE: XR chest 2V DATE OF EXAM: 12/24/2022 COMPARISON: 09/10/2022 INDICATION: Weakness TECHNIQUE: Single frontal view of the chest is obtained. FINDINGS: The heart size is normal. The pulmonary vasculature is normal. The lungs are clear. IMPRESSION: 1. No acute pulmonary process.
[2022-12-24] MEDS: PANTOPRAZOLE 40 MG TABLET PO SCH (16:59)
[2022-12-24] MEDS ORDERED: RIVAROXABAN 15 MG TAB PO SCH (21:00)
[2022-12-24] MEDS ORDERED: PRAVASTATIN SODIUM 80 MG TAB PO SCH (21:00)
[2022-12-24] MEDS: MEMANTINE 10 MG TAB PO SCH (22:00)
[2022-12-24] MEDS: SOTALOL 80 MG TAB PO SCH (22:01)
[2022-12-25] MEDS ORDERED: LEVOTHYROXINE 75 MCG TAB PO SCH (06:30)
[2022-12-25] MEDS: PANTOPRAZOLE 40 MG TABLET PO SCH (07:56)
[2022-12-25] MEDS: MEMANTINE 10 MG TAB PO SCH (08:01)
[2022-12-25] MEDS: SOTALOL 80 MG TAB PO SCH (08:02)
--- NOTE | 2022-12-25 08:28 | P.HPIM ---
History of Present Illness This is a pleasant 82 years old female with past medical history of trial Fibrillation, COPD, Dementia, Diabetes Mellitus, GERD/Reflux, Hyperlipidemia, Hypertension, Memory Impairment, Osteoarthritis , hypothyroidism Information were obtained with the help of at bedside. Patient presents because of weakness, this morning when she went to the bathroom she could not get up from the seat and needed the help of her . Patient looks somewhat confused, she thought this is her house and she is disoriented to time place and person as she could not tell a year or the name of the president. As per patient has history of dementia but it looks now it's worsening. Patient has mild headache about 1/10 in severity. Chest no chest pain or dyspnea. She reports some difficulty with urination. She denies any dizziness weakness numbness or other neurological deficits. As per family patient was more confused and more weak than usual PCP is . Vitals are stable afebrile She has leukocytosis of 22.8. Risks of CBC is unremarkable INR is unremarkable. Potassium is still low at 3.1 creatinine normal 0.8. Elevated lactic acid came back to normal. Sugar is 203. Liver enzymes unremarkable. Urine analysis showed large leukocyte esterase suspicious for infection. Viruses undetected including influenza, RSV, coronavirus chest x-ray: No acute process CT of the abdomen and pelvis: Splenic cyst. No acute abnormality to account for patient's symptoms EKG shows sinus bradycardia at 51 Review of Systems Review of systems CONSTITUTIONAL: No fever, no malaise, no fatigue. HEENT: No recent visual problems or hearing problems. Denied any sore throat. CARDIOVASCULAR: No orthopnea, PND, no palpitations, no syncope. PULMONARY: No shortness of breath, no cough, no hemoptysis. GASTROINTESTINAL: No diarrhea, no nausea, no vomiting, no abdominal pain. Normoactive bowel sounds. NEUROLOGICAL: No headaches, no weakness, no numbness. HEMATOLOGICAL: Denies any bleeding or petechiae. GENITOURINARY: Denies any burning micturition, frequency, or urgency. MUSCULOSKELETAL/RHEUMATOLOGICAL: Denies any joint pain, swelling, or any muscle pain. ENDOCRINE: Denies any polyuria or polydipsia. Past Medical History Past Medical History: Atrial Fibrillation, COPD, Dementia, Diabetes Mellitus, GERD/Reflux, Hyperlipidemia, Hypertension, Memory Impairment, Osteoarthritis (OA), Pneumonia, Thyroid Disorder Additional Past Medical History / Comment(s): Right hip infection w/wound vac in Jun.-tx. @[facility]-wound completely healed per son, SHINGLES TO RT FACE/EYE. diet controlled diabetes, osteoporosis, recent blood in stool,. ANEMIA WITH BLOOD TRANSFUSIONS. 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 Past Anesthesia/Blood Transfusion Reactions: No Reported Reaction Date of Last Stent Placement:: 2017 Past Psychological History: Unable to Obtain, Depression Smoking Status: Former smoker Past Alcohol Use History: None Reported Past Drug Use History: None Reported - Past Family History Daughter(s) Family Medical History: Cancer Father History Unknown: Yes Additional Family Medical History / Comment(s): BRAIN TUMOR Mother Family Medical History: Cancer Medications and Allergies Home Medications Medication Instructions Recorded Confirmed Type Levothyroxine Sodium [Synthroid] 150 mcg PO SUTUWETHSA 09/30/13 12/24/22 History Pravastatin Sodium [Pravachol] 80 mg PO HS 11/07/14 12/24/22 History Multivitamins, Thera [Multivitamin 1 tab PO DAILY 06/01/18 12/24/22 History (formulary)] Sotalol [Betapace] 80 mg PO BID 06/01/18 12/24/22 History Ferrous Sulfate [Iron (65 MG 325 mg PO DAILY 06/16/18 12/24/22 History Elemental)] Losartan/Hydrochlorothiazide 1 tab PO DAILY 08/18/18 12/24/22 History [Losartan-Hctz 100-25 mg Tab] Donepezil [Aricept] 10 mg PO DAILY 06/22/21 12/24/22 History Memantine [Namenda] 10 mg PO BID 06/22/21 12/24/22 History Mirabegron [Myrbetriq] 50 mg PO DAILY 06/22/21 12/24/22 History Sennosides-Docusate Sodium 1 tab PO HS 06/22/21 12/24/22 History [Senokot-S] Cyanocobalamin [Vitamin B-12] 500 mcg PO DAILY 07/16/21 12/24/22 History Rivaroxaban [Xarelto] 15 mg PO HS 07/16/21 12/24/22 History Pantoprazole [Protonix] 40 mg PO BID 02/23/22 12/24/22 History Acetaminophen [Tylenol Extra 500 mg PO Q8HR PRN #30 tablet 02/24/22 12/24/22 Rx Strength] Levothyroxine Sodium [Synthroid] 125 mcg PO MOFR 06/05/22 12/24/22 History Loratadine [Claritin] 10 mg PO DAILY 06/05/22 12/24/22 History Nitroglycerin Sl Tabs [Nitrostat] 0.4 mg SL Q5M PRN 06/05/22 12/24/22 History Vortioxetine Hydrobromide 20 mg PO DAILY 06/05/22 12/24/22 History [Trintellix] amLODIPine [Norvasc] 10 mg PO DAILY 30 Days #30 tab 06/09/22 12/24/22 Rx Loperamide [Imodium] 2 mg PO QID PRN cap 08/08/22 12/24/22 Rx Methenamine Hippurate 1 gm PO BID 12/24/22 12/24/22 History Nitrofurantoin Monohyd/M-Cryst 100 mg PO BID 12/24/22 12/24/22 History [Macrobid] Allergies Allergy/AdvReac Type Severity Reaction Status Date / Time azithromycin Allergy Rash/Hives Verified 12/24/22 13:02 [From Zithromax Z-Chau] codeine Allergy Unknown Verified 12/24/22 13:02 hydrochlorothiazide Allergy Unknown Verified 12/24/22 13:02 [From Dyazide] lincomycin HCl Allergy Unknown Verified 12/24/22 13:02 [From Lincocin] meperidine HCl [From Demerol] Allergy Unknown Verified 12/24/22 13:02 metronidazole [From Flagyl] Allergy Unknown Verified 12/24/22 13:02 Metronidazole HCl Allergy Unknown Verified 12/24/22 13:02 [From Flagyl] nitrofurantoin Allergy Confusion Verified 12/24/22 19:10 [From Macrobid] Penicillins Allergy Unknown Verified 12/24/22 13:02 Childhood [place]-NCG-WuF Reductase Allergy Unknown Verified 12/24/22 13:02 Inhibitor Sulfa (Sulfonamide Allergy Unknown Verified 12/24/22 13:02 Antibiotics) tetracycline [Tetracycline] Allergy Unknown Verified 12/24/22 13:02 triamterene [From Dyazide] Allergy Unknown Verified 12/24/22 13:02 watermelon Allergy Swelling Verified 12/24/22 13:02 atorvastatin calcium AdvReac MUSCLE Verified 12/24/22 13:02 [From Lipitor] ACHES rosuvastatin calcium AdvReac MUSCLE Verified 12/24/22 13:02 [From Crestor] ACHES Physical Exam Vitals: Vital Signs Temp Pulse Resp BP Pulse Ox 12/24/22 18:00 27 H 150/69 12/24/22 17:00 64 23 12/24/22 16:00 58 L 34 H 98 12/24/22 15:00 58 L 26 H 100 12/24/22 14:03 98.2 F 58 L 30 H 164/58 98 12/24/22 14:00 57 L 23 98 12/24/22 13:00 52 L 24 140/60 98 12/24/22 12:00 70 27 H 133/53 98 12/24/22 11:25 52 L 30 H 133/53 98 12/24/22 11:08 98 Intake and Output 12/24/22 12/24/22 12/24/22 06:59 14:59 22:59 Other: Weight 95.254 kg -GENERAL: The patient is alert and oriented x0, confused, not in any acute distress. Well developed, well nourished. HEENT: Pupils are round and equally reacting to light. EOMI. No scleral icterus. No conjunctival pallor. Normocephalic, atraumatic. No pharyngeal erythema. No thyromegaly. CARDIOVASCULAR: S1 and S2 present. No murmurs, rubs, or gallops. PULMONARY: Chest is clear to auscultation, no wheezing , no crackles. ABDOMEN: Soft, nontender, nondistended, normoactive bowel sounds. No palpable organomegaly. MUSCULOSKELETAL: No joint swelling or deformity. EXTREMITIES: No cyanosis, clubbing, or pedal edema. NEUROLOGICAL: Gross neurological examination did not reveal any focal deficits. SKIN: No rashes. no petechiae. Results CBC & Chem 7: 12/24/22 12:49 12/24/22 12:49 Labs: Abnormal Lab Results - Last 24 Hours (Table) 12/24/22 12/24/22 12/24/22 Range/Units 12:49 12:49 12:49 WBC 22.8 H (3.8-10.6) k/uL Neutrophils # 20.5 H (1.3-7.7) k/uL Potassium 3.1 L (3.5-5.1) mmol/L BUN 19 H (7-17) mg/dL Glucose 203 H (74-99) mg/dL Plasma Lactic Acid Ankit (0.7-2.0) mmol/L Albumin 3.4 L (3.5-5.0) g/dL Urine Protein Trace H (Negative) Ur Leukocyte Esterase Large H (Negative) Urine WBC 26 H (0-5) /hpf Urine Bacteria Rare H (None) /hpf Hyaline Casts 7 H (0-2) /lpf Urine Mucus Occasional H (None) /hpf 12/24/22 Range/Units 12:49 WBC (3.8-10.6) k/uL Neutrophils # (1.3-7.7) k/uL Potassium (3.5-5.1) mmol/L BUN (7-17) mg/dL Glucose (74-99) mg/dL Plasma Lactic Acid Ankit 3.0 H* (0.7-2.0) mmol/L Albumin (3.5-5.0) g/dL Urine Protein (Negative) Ur Leukocyte Esterase (Negative) Urine WBC (0-5) /hpf Urine Bacteria (None) /hpf Hyaline Casts (0-2) /lpf Urine Mucus (None) /hpf Assessment and Plan Assessment: acute coronary tract infection Metabolic encephalopathy History of dementia Leukocytosis Sinus bradycardia while on a beta wen Plan: Start ceftriaxone Send urine culture Check a bladder scan Infectious disease consult Monitor heart rate and mentation Labs and medication were reviewed.. Continue same treatment. Continue with symptomatic treatment. Resume home medication. Monitor lytes and vitals. DVT and GI prophylaxis. Further recommendations depends on the clinical course of the patient DVT prophylaxis: Subcutaneous heparin GI Prophylaxis: Pepcid PT/OT: Pending Prognosis is guarded
[2022-12-25 08:39] LABS: Basophils # (A) 0.06 X 10*3/uL (0.00-0.10); Basophils % (A) 0.4 %; Eosinophils # (A) 0.25 X 10*3/uL (0.04-0.35); Eosinophils % (A) 1.7 %; HCT 41.1 % (37.2-46.3); HGB 13.8 d/dL (12.0-15.0); Lymphocytes # (A) 1.18 X 10*3/uL (0.90-5.00); MCH 30.8 pg (27.0-32.0); MCHC 33.6 d/dL (32.0-37.0); MCV 91.7 FL (80.0-97.0); Mean Platelet Volume 12.1 FL (9.5-12.2); Monocytes # (A) 0.79 X 10*3/uL (0.20-1.00); Monocytes % (A) 5.4 %; NRBC Per 100 WBC 0 X 10*3/uL (0.00-0.01); Neutrophils # (A) 12.34 X 10*3/uL (1.80-7.70); Neutrophils % (A) 83.8 %; Platelet Count 251 X 10*3/uL (140-440); RBC 4.48 X 10*6/uL (4.10-5.20); RDW 12.8 % (11.5-14.5); WBC 14.72 X 10*3/uL (4.50-10.00)
[2022-12-25 08:59] LABS: ALT 11 U/L (8-44); AST 13 U/L (13-35); Albumin 3.7 d/dL (3.8-4.9); Albumin/Globulin Ratio 1.28 Ratio (1.60-3.17); Alkaline Phosphatase 80 U/L (41-126); BUN/Creat Ratio 23.88 Ratio (12.00-20.00); Bilirubin, Conjugated <0.20 mg/dL (0.20-0.40); Bilirubin,Unconjugated >0.30 mg/dL (0.20-1.00); Blood Urea Nitrogen 19.1 mg/dL (9.0-27.0); Calcium 9.9 mg/dL (8.7-10.3); Carbon Dioxide 28.2 mmol/L (21.6-31.8); Chloride 106 mmol/L (96-109); Globulin 2.9 d/dL (1.6-3.3); Glucose 139 mg/dL (70-110); Magnesium 1.9 mg/dL (1.5-2.4); Potassium 2.8 mmol/L (3.5-5.5); Sodium 144 mmol/L (135-145); Total Bilirubin 0.5 mg/dL (0.3-1.2); Total Protein 6.6 d/dL (6.2-8.2)
[2022-12-25] MEDS ORDERED: DONEPEZIL 10 MG TAB PO SCH (09:00)
[2022-12-25] MEDS ORDERED: VORTIOXETINE HYDROBROMIDE 20 MG TABLET PO SCH (09:00)
[2022-12-25] MEDS ORDERED: LOSARTAN-HCTZ 50-12.5 MG 1 EACH TAB PO SCH (09:00)
[2022-12-25] MEDS ORDERED: amLODIPine 10 MG TAB PO SCH (09:00)
[2022-12-25] MEDS ORDERED: Potassium Replacement Protocol 1 EACH MISC MISCELLANE PRN (09:34)
[2022-12-25 10:47] LABS: Glucose,Whole Blood 131 mg/dL (70-110)
[2022-12-25] MEDS: POTASSIUM CHLORIDE ER 20 MEQ TAB.ER PO SCH ×2 (11:35→13:18)
[2022-12-25 14:33] VITALS: BP 154/70; PULSE 63; RESP 17; TEMP 98
[2022-12-26] MEDS ORDERED: LEVOTHYROXINE 125 MCG TAB PO SCH (06:30)
[2022-12-26] MEDS ORDERED: LOSARTAN 50 MG TAB PO SCH (09:00)
--- NOTE | 2022-12-26 15:49 | P.DS ---
Providers Date of admission: 12/24/22 18:36 Attending physician: jP Booker MD Consults: 12/25/22 08:24 Consult Physician Routine Consulting Provider: Cindy Bella Consult Reason/Comments: leukocytosis, mostly uti Do you want consulting provider notified?: Yes Primary care physician: Maryann Jarvis Hospital Course: Final Diagnosis Generalized weakness Altered mental status likely an acute metabolic and toxic encephalopathy secondary to acute infection Acute urinary tract infection with sepsis present on admission urine culture showing E.Coli from outpatient 6 days ago Leukocytosis secondary to above History of atrial fibrillation History of COPD with no acute exacerbation history of GERD Attention Hyperlipidemia Thyroid disorder Coronary artery disease with prior cardiac stenting Former smoker History of dementia GI prophylaxis Discharge disposition Patient is stable for discharge home guarded prognosis due to her dementia and memory impairment. Patient says at the bedside and feels the patient is back to her baseline and would like her to go home. Patient is alert 2-3 the time of my examination. She will be discharged on 5 days of oral Ceftin for the acute UTI although her urine culture here is negative. Discontinue Macrobid. Repeat labs in 2-3 days and follow up with infectious disease Dr. Bella 1 week and her PCP Dr. Jarvis 1-2 days. Hospital course [id number] feeling about history of atrial fibrillation, COPD, dementia, diabetes, GERD, hyperlipidemia, hypertension, hypothyroidism and memory impairment. Patient was brought to the hospital for an acute episode of confusion and weakness she was not able to get up from the seat of the toilet at home. On initial assessment she was confused and cannot tell the name of the present or the year she does have history of dementia. She knows her name birthday she is in hospital. Patient was found to have acute urinary tract infection outpatient with a urine culture showing E. coli susceptible to all but cefoxitin. This medication was susceptible to nitrofurantoin which placed and was placed on outpatient per her family's the bedside for the patient may have an ALLERGY to this medication and states that since her first dose she became quite altered. There was some concern patient may be having some abdominal pain or suprapubic tenderness and an abdominal pelvis CT was completed which is negative for any acute findings just had a negative chest x-ray on admission. She had a white count of 22.8 on admission down to 14.72, potassium 3.1, lactic acid 3.0. Lactic acid has improved down to 0.9 and also her pro-calcitonin was elevated at 0.40. Patient was given IV ceftriaxone empirically and clinically responded well her mentation had improved and her labs are improving. Patient has remained afebrile. Blood culture so far is negative and urine culture was final and negative. Patient is denying any shortness of breath denied chest pain denying any nausea vomiting or diarrhea. She is asking for discharge home on her family's agreement they feel she is back to baseline when to take the patient home. Her lungs are clear, S1-S2 auscultated, abdomen is soft and nontender. She does have some generalized weakness however again at the bedside and family and patient states that they would like her to be discharged. This was discussed with infectious diseases agree with a course of oral Ceftin and patient is discharged home with the above-mentioned recommendations. Please see medication reconciliation for list of current medication. Thank you for allowing us to participate in the care of this patient. The impression and plan of care has been dictated by Catherine Yee, Nurse Practitioner as directed. Dr. Nadia MD I have performed a history and physical examination and medical decision making of this patient, discussed the same with the dictator, and agree with the dictators assessment and plan as written, documented as a scribe. Based on total visit time, I have performed more than 50% of this visit. Patient Condition at Discharge: Fair Plan - Discharge Summary New Discharge Prescriptions: New cefUROXime axetiL [Ceftin] 500 mg PO BID 5 Days #10 tab Continue Levothyroxine Sodium [Synthroid] 150 mcg PO SUTUWETHSA Pravastatin Sodium [Pravachol] 80 mg PO HS Sotalol [Betapace] 80 mg PO BID Multivitamins, Thera [Multivitamin (formulary)] 1 tab PO DAILY Ferrous Sulfate [Iron (65 MG Elemental)] 325 mg PO DAILY Losartan/Hydrochlorothiazide [Losartan-Hctz 100-25 mg Tab] 1 tab PO DAILY Donepezil [Aricept] 10 mg PO DAILY Memantine [Namenda] 10 mg PO BID Mirabegron [Myrbetriq] 50 mg PO DAILY Rivaroxaban [Xarelto] 15 mg PO HS Pantoprazole [Protonix] 40 mg PO BID Levothyroxine Sodium [Synthroid] 125 mcg PO MOFR Vortioxetine Hydrobromide [Trintellix] 20 mg PO DAILY Sennosides-Docusate Sodium [Senokot-S] 1 tab PO HS Cyanocobalamin [Vitamin B-12] 500 mcg PO DAILY Acetaminophen [Tylenol Extra Strength] 500 mg PO Q8HR PRN #30 tablet PRN Reason: Pain Loratadine [Claritin] 10 mg PO DAILY Nitroglycerin Sl Tabs [Nitrostat] 0.4 mg SL Q5M PRN PRN Reason: Chest Pain amLODIPine [Norvasc] 10 mg PO DAILY 30 Days #30 tab Loperamide [Imodium] 2 mg PO QID PRN cap PRN Reason: Diarrhea Methenamine Hippurate 1 gm PO BID Nitrofurantoin Monohyd/M-Cryst [Macrobid] 100 mg PO BID Discharge Medication List Levothyroxine Sodium [Synthroid] 150 mcg PO SUTUWETHSA 09/30/13 [History] Pravastatin Sodium [Pravachol] 80 mg PO HS 11/07/14 [History] Multivitamins, Thera [Multivitamin (formulary)] 1 tab PO DAILY 06/01/18 [History] Sotalol [Betapace] 80 mg PO BID 06/01/18 [History] Ferrous Sulfate [Iron (65 MG Elemental)] 325 mg PO DAILY 06/16/18 [History] Losartan/Hydrochlorothiazide [Losartan-Hctz 100-25 mg Tab] 1 tab PO DAILY 08/18/18 [History] Donepezil [Aricept] 10 mg PO DAILY 06/22/21 [History] Memantine [Namenda] 10 mg PO BID 06/22/21 [History] Mirabegron [Myrbetriq] 50 mg PO DAILY 06/22/21 [History] Sennosides-Docusate Sodium [Senokot-S] 1 tab PO HS 06/22/21 [History] Cyanocobalamin [Vitamin B-12] 500 mcg PO DAILY 07/16/21 [History] Rivaroxaban [Xarelto] 15 mg PO HS 07/16/21 [History] Pantoprazole [Protonix] 40 mg PO BID 02/23/22 [History] Acetaminophen [Tylenol Extra Strength] 500 mg PO Q8HR PRN #30 tablet 02/24/22 [Rx] Levothyroxine Sodium [Synthroid] 125 mcg PO MOFR 06/05/22 [History] Loratadine [Claritin] 10 mg PO DAILY 06/05/22 [History] Nitroglycerin Sl Tabs [Nitrostat] 0.4 mg SL Q5M PRN 06/05/22 [History] Vortioxetine Hydrobromide [Trintellix] 20 mg PO DAILY 06/05/22 [History] amLODIPine [Norvasc] 10 mg PO DAILY 30 Days #30 tab 06/09/22 [Rx] Loperamide [Imodium] 2 mg PO QID PRN cap 08/08/22 [Rx] Methenamine Hippurate 1 gm PO BID 12/24/22 [History] Nitrofurantoin Monohyd/M-Cryst [Macrobid] 100 mg PO BID 12/24/22 [History] cefUROXime axetiL [Ceftin] 500 mg PO BID 5 Days #10 tab 12/25/22 [Rx] Follow up Appointment(s)/Referral(s): Maryann Jarvis DO [Primary Care Provider] - 1-2 days Cindy Bella MD [STAFF PHYSICIAN] - 1 Week Ambulatory/Diagnostic Orders: Basic Metabolic Panel [LAB.AMB] Location: None Selected Complete Blood Count w/diff [LAB.AMB] Time Frame: 3 Days, Location: None Selected Patient Instructions/Handouts: Weakness (ED), Urinary Tract Infection in Older Adults (ED) Activity/Diet/Wound Care/Special Instructions: Continue on oral antibiotics for 5 days and f/u with your PCP Discharge Disposition: HOME WITH HOME HEALTH SERVICES
== END 2022-12-25 14:41 | disposition home health service (06) | DRG 871 ==
LOC: EC 10:36 → 5NMEDONC 18:36
PROVIDERS: ADMIT Internal Medicine; ATTEND Internal Medicine
DX: A41.51 Sepsis due to Escherichia coli [E. coli] (principal); G92.8 Other toxic encephalopathy; N39.0 Urinary tract infection, site not specified; F03.90 Unspecified dementia, unspecified severity, without behavioral disturbance, psychotic disturbance, mood disturbance, and anxiety; J44.9 Chronic obstructive pulmonary disease, unspecified; E11.9 Type 2 diabetes mellitus without complications; I48.91 Unspecified atrial fibrillation; D73.4 Cyst of spleen; I10 Essential (primary) hypertension; E03.9 Hypothyroidism, unspecified; B96.20 Unspecified Escherichia coli [E. coli] as the cause of diseases classified elsewhere; E78.5 Hyperlipidemia, unspecified; I25.10 Atherosclerotic heart disease of native coronary artery without angina pectoris; K21.9 Gastro-esophageal reflux disease without esophagitis; M19.90 Unspecified osteoarthritis, unspecified site; M81.0 Age-related osteoporosis without current pathological fracture; R32 Unspecified urinary incontinence; R00.1 Bradycardia, unspecified; Z20.822 Contact with and (suspected) exposure to COVID-19; Z96.641 Presence of right artificial hip joint; Z87.891 Personal history of nicotine dependence; Z95.5 Presence of coronary angioplasty implant and graft; Z86.19 Personal history of other infectious and parasitic diseases; Z86.14 Personal history of Methicillin resistant Staphylococcus aureus infection; I25.2 Old myocardial infarction; Z87.19 Personal history of other diseases of the digestive system; Z79.890 Hormone replacement therapy; Z79.899 Other long term (current) drug therapy; Z79.01 Long term (current) use of anticoagulants; Z88.1 Allergy status to other antibiotic agents; Z88.5 Allergy status to narcotic agent; Z88.8 Allergy status to other drugs, medicaments and biological substances; Z88.3 Allergy status to other anti-infective agents; Z88.0 Allergy status to penicillin; Z88.2 Allergy status to sulfonamides; Z91.018 Allergy to other foods
CPT/HCPCS: 36415; 51798; 71046; 74177; 80048; 80053; 80076; 81001; 83605; 83735; 84145; 85025; 85610; 85730; 87040; 87086; 87636; 93005; 96361; 96365; 96375; 99285

== ENCOUNTER 2022-12-26 13:59 | Inpatient (IN) | payer MEDICARE, BC ==
[2022-12-26 15:09] LABS: Appearance,Urine Cloudy (Clear); Bilirubin,Urine Negative (Negative); Blood,Urine Negative (Negative); Color,Urine Light Red; Glucose,Urine (UA) Negative (Negative); Ketones,Urine Negative (Negative); Leukocyte Esterase,Urine Small (Negative); Mucus,Urine Moderate /hpf; Nitrite,Urine Negative (Negative); PH, Urine 5.5 (5.0-8.0); Protein,Urine Trace (Negative); RBC,Urine 1 /hpf (0-5); Specific Gravity,Urine 1.025 (1.001-1.035); Squamous Epithelial Cell,Urine 7 /hpf (0-4); Urobilinogen,Urine <2.0 mg/dL (<2.0); WBC,Urine 10 /hpf (0-5)
[2022-12-26] MEDS ORDERED: ACETAMINOPHEN TAB 500 MG TAB PO STA (16:26)
--- NOTE | 2022-12-26 16:54 | ED ---
Extremity Problem HPI - General Chief complaint: Extremity Problem,Nontraumatic Stated complaint: L and R Leg Pain Time Seen by Provider: 12/26/22 16:01 Source: patient Mode of arrival: wheelchair Limitations: no limitations - Related Data Home Medications Medication Instructions Recorded Confirmed Levothyroxine Sodium [Synthroid] 150 mcg PO SUTUWETHSA 09/30/13 12/24/22 Pravastatin Sodium [Pravachol] 80 mg PO HS 11/07/14 12/24/22 Multivitamins, Thera [Multivitamin 1 tab PO DAILY 06/01/18 12/24/22 (formulary)] Sotalol [Betapace] 80 mg PO BID 06/01/18 12/24/22 Ferrous Sulfate [Iron (65 MG 325 mg PO DAILY 06/16/18 12/24/22 Elemental)] Losartan/Hydrochlorothiazide 1 tab PO DAILY 08/18/18 12/24/22 [Losartan-Hctz 100-25 mg Tab] Donepezil [Aricept] 10 mg PO DAILY 06/22/21 12/24/22 Memantine [Namenda] 10 mg PO BID 06/22/21 12/24/22 Mirabegron [Myrbetriq] 50 mg PO DAILY 06/22/21 12/24/22 Sennosides-Docusate Sodium 1 tab PO HS 06/22/21 12/24/22 [Senokot-S] Cyanocobalamin [Vitamin B-12] 500 mcg PO DAILY 07/16/21 12/24/22 Rivaroxaban [Xarelto] 15 mg PO HS 07/16/21 12/24/22 Pantoprazole [Protonix] 40 mg PO BID 02/23/22 12/24/22 Levothyroxine Sodium [Synthroid] 125 mcg PO MOFR 06/05/22 12/24/22 Loratadine [Claritin] 10 mg PO DAILY 06/05/22 12/24/22 Nitroglycerin Sl Tabs [Nitrostat] 0.4 mg SL Q5M PRN 06/05/22 12/24/22 Vortioxetine Hydrobromide 20 mg PO DAILY 06/05/22 12/24/22 [Trintellix] Methenamine Hippurate 1 gm PO BID 12/24/22 12/24/22 Nitrofurantoin Monohyd/M-Cryst 100 mg PO BID 12/24/22 12/24/22 [Macrobid] Previous Rx's Medication Instructions Recorded Acetaminophen [Tylenol Extra 500 mg PO Q8HR PRN #30 tablet 02/24/22 Strength] amLODIPine [Norvasc] 10 mg PO DAILY 30 Days #30 tab 06/09/22 Loperamide [Imodium] 2 mg PO QID PRN cap 08/08/22 cefUROXime axetiL [Ceftin] 500 mg PO BID 5 Days #10 tab 12/25/22 Allergies Allergy/AdvReac Type Severity Reaction Status Date / Time azithromycin Allergy Rash/Hives Verified 12/26/22 14:05 [From Zithromax Z-Chau] codeine Allergy Unknown Verified 12/26/22 14:05 hydrochlorothiazide Allergy Unknown Verified 12/26/22 14:05 [From Dyazide] lincomycin HCl Allergy Unknown Verified 12/26/22 14:05 [From Lincocin] meperidine HCl [From Demerol] Allergy Unknown Verified 12/26/22 14:05 metronidazole [From Flagyl] Allergy Unknown Verified 12/26/22 14:05 Metronidazole HCl Allergy Unknown Verified 12/26/22 14:05 [From Flagyl] nitrofurantoin Allergy Confusion Verified 12/26/22 14:05 [From Macrobid] Penicillins Allergy Unknown Verified 12/26/22 14:05 Childhood Knjp[place]-VKW-ZkC Reductase Allergy Unknown Verified 12/26/22 14:05 Inhibitor Sulfa (Sulfonamide Allergy Unknown Verified 12/26/22 14:05 Antibiotics) tetracycline [Tetracycline] Allergy Unknown Verified 12/26/22 14:05 triamterene [From Dyazide] Allergy Unknown Verified 12/26/22 14:05 watermelon Allergy Swelling Verified 12/26/22 14:05 atorvastatin calcium AdvReac MUSCLE Verified 12/26/22 14:05 [From Lipitor] ACHES rosuvastatin calcium AdvReac MUSCLE Verified 12/26/22 14:05 [From Crestor] ACHES Review of Systems ROS Statement: Those systems with pertinent positive or pertinent negative responses have been documented in the HPI. ROS Other: All systems not noted in ROS Statement are negative. Past Medical History Past Medical History: Atrial Fibrillation, COPD, Dementia, Diabetes Mellitus, GERD/Reflux, Hyperlipidemia, Hypertension, Memory Impairment, Osteoarthritis (OA), Pneumonia, Thyroid Disorder Additional Past Medical History / Comment(s): Right hip infection w/wound vac in Jun.-tx. @[facility]-wound completely healed per son, SHINGLES TO RT FACE/EYE. diet controlled diabetes, osteoporosis, recent blood in stool,. ANEMIA WITH BLOOD TRANSFUSIONS. 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 Past Anesthesia/Blood Transfusion Reactions: No Reported Reaction Date of Last Stent Placement:: 2017 Past Psychological History: Unable to Obtain, Depression Smoking Status: Former smoker Past Alcohol Use History: None Reported Past Drug Use History: None Reported - Past Family History Daughter(s) Family Medical History: Cancer Father History Unknown: Yes Additional Family Medical History / Comment(s): BRAIN TUMOR Mother Family Medical History: Cancer General Exam Limitations: no limitations Course Vital Signs 12/26/22 14:02 Temperature 98 F Pulse Rate 67 Respiratory 16 Rate Blood Pressure 121/58 O2 Sat by Pulse 95 Oximetry Medical Decision Making - Lab Data Lab Results 12/26/22 Range/Units 14:54 Urine Color Light Red Urine Appearance Cloudy H (Clear) Urine pH 5.5 (5.0-8.0) Ur Specific [place] 1.025 (1.001-1.035) Urine Protein Trace H (Negative) Urine Glucose (UA) Negative (Negative) Urine Ketones Negative (Negative) Urine Blood Negative (Negative) Urine Nitrite Negative (Negative) Urine Bilirubin Negative (Negative) Urine Urobilinogen <2.0 (<2.0) mg/dL Ur Leukocyte Esterase Small H (Negative) Urine RBC 1 (0-5) /hpf Urine WBC 10 H (0-5) /hpf Ur Squamous Epith Cells 7 H (0-4) /hpf Urine Mucus Moderate H (None) /hpf - EKG Data EKG Comments: EKG shows atrial rhythm at [address] or T-wave changes. NE 182, QRS 90, QT/QTc 406/408. Disposition Referrals: Maryann Craig DO [Primary Care Provider] - 1-2 days
--- NOTE | 2022-12-26 17:05 | ED ---
Extremity Problem HPI - General Chief complaint: Extremity Problem,Nontraumatic Stated complaint: L and R Leg Pain Time Seen by Provider: 12/26/22 16:01 Source: patient Mode of arrival: wheelchair Limitations: no limitations - History of Present Illness Initial comments: 82-year-old female presenting to the ED with a chief complaint of left hip pain. Patient recently here and discharged on 12/24/22 after treatment for UTI with sepsis. At this time currently on antibiotics for this. Per son, notes left hip pain. Notes that she had this while in the hospital and has had no new injuries since her discharge here. States that due to this needed 3 people to pick her up from the toilet today. Patiently currently denies any symptoms other than "everything hurting". Denies shortness of breath. - Related Data Home Medications Medication Instructions Recorded Confirmed Levothyroxine Sodium [Synthroid] 150 mcg PO SUTUWETHSA 09/30/13 12/24/22 Pravastatin Sodium [Pravachol] 80 mg PO HS 11/07/14 12/24/22 Multivitamins, Thera [Multivitamin 1 tab PO DAILY 06/01/18 12/24/22 (formulary)] Sotalol [Betapace] 80 mg PO BID 06/01/18 12/24/22 Ferrous Sulfate [Iron (65 MG 325 mg PO DAILY 06/16/18 12/24/22 Elemental)] Losartan/Hydrochlorothiazide 1 tab PO DAILY 08/18/18 12/24/22 [Losartan-Hctz 100-25 mg Tab] Donepezil [Aricept] 10 mg PO DAILY 06/22/21 12/24/22 Memantine [Namenda] 10 mg PO BID 06/22/21 12/24/22 Mirabegron [Myrbetriq] 50 mg PO DAILY 06/22/21 12/24/22 Sennosides-Docusate Sodium 1 tab PO HS 06/22/21 12/24/22 [Senokot-S] Cyanocobalamin [Vitamin B-12] 500 mcg PO DAILY 07/16/21 12/24/22 Rivaroxaban [Xarelto] 15 mg PO HS 07/16/21 12/24/22 Pantoprazole [Protonix] 40 mg PO BID 02/23/22 12/24/22 Levothyroxine Sodium [Synthroid] 125 mcg PO MOFR 06/05/22 12/24/22 Loratadine [Claritin] 10 mg PO DAILY 06/05/22 12/24/22 Nitroglycerin Sl Tabs [Nitrostat] 0.4 mg SL Q5M PRN 06/05/22 12/24/22 Vortioxetine Hydrobromide 20 mg PO DAILY 06/05/22 12/24/22 [Trintellix] Methenamine Hippurate 1 gm PO BID 12/24/22 12/24/22 Nitrofurantoin Monohyd/M-Cryst 100 mg PO BID 12/24/22 12/24/22 [Macrobid] Previous Rx's Medication Instructions Recorded Acetaminophen [Tylenol Extra 500 mg PO Q8HR PRN #30 tablet 02/24/22 Strength] amLODIPine [Norvasc] 10 mg PO DAILY 30 Days #30 tab 06/09/22 Loperamide [Imodium] 2 mg PO QID PRN cap 08/08/22 cefUROXime axetiL [Ceftin] 500 mg PO BID 5 Days #10 tab 12/25/22 Allergies Allergy/AdvReac Type Severity Reaction Status Date / Time azithromycin Allergy Rash/Hives Verified 12/26/22 14:05 [From Zithromax Z-Chau] codeine Allergy Unknown Verified 12/26/22 14:05 hydrochlorothiazide Allergy Unknown Verified 12/26/22 14:05 [From Dyazide] lincomycin HCl Allergy Unknown Verified 12/26/22 14:05 [From Lincocin] meperidine HCl [From Demerol] Allergy Unknown Verified 12/26/22 14:05 metronidazole [From Flagyl] Allergy Unknown Verified 12/26/22 14:05 Metronidazole HCl Allergy Unknown Verified 12/26/22 14:05 [From Flagyl] nitrofurantoin Allergy Confusion Verified 12/26/22 14:05 [From Macrobid] Penicillins Allergy Unknown Verified 12/26/22 14:05 Childhood [id number] Reductase Allergy Unknown Verified 12/26/22 14:05 Inhibitor Sulfa (Sulfonamide Allergy Unknown Verified 12/26/22 14:05 Antibiotics) tetracycline [Tetracycline] Allergy Unknown Verified 12/26/22 14:05 triamterene [From Dyazide] Allergy Unknown Verified 12/26/22 14:05 watermelon Allergy Swelling Verified 12/26/22 14:05 atorvastatin calcium AdvReac MUSCLE Verified 12/26/22 14:05 [From Lipitor] ACHES rosuvastatin calcium AdvReac MUSCLE Verified 12/26/22 14:05 [From Crestor] ACHES Review of Systems ROS Statement: Those systems with pertinent positive or pertinent negative responses have been documented in the HPI. ROS Other: All systems not noted in ROS Statement are negative. Past Medical History Past Medical History: Atrial Fibrillation, COPD, Dementia, Diabetes Mellitus, GERD/Reflux, Hyperlipidemia, Hypertension, Memory Impairment, Osteoarthritis (OA), Pneumonia, Thyroid Disorder Additional Past Medical History / Comment(s): Right hip infection w/wound vac in Jun[facility]. [facility]-wound completely healed per son, SHINGLES TO RT FACE/EYE. diet controlled diabetes, osteoporosis, recent blood in stool,. ANEMIA WITH BLOOD TRANSFUSIONS. 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 Past Anesthesia/Blood Transfusion Reactions: No Reported Reaction Date of Last Stent Placement:: 2017 Past Psychological History: Unable to Obtain, Depression Smoking Status: Former smoker Past Alcohol Use History: None Reported Past Drug Use History: None Reported - Past Family History Daughter(s) Family Medical History: Cancer Father History Unknown: Yes Additional Family Medical History / Comment(s): BRAIN TUMOR Mother Family Medical History: Cancer General Exam Limitations: no limitations General appearance: alert, in distress Neck exam: Present: normal inspection Respiratory exam: Present: normal lung sounds bilaterally Cardiovascular Exam: Present: regular rate, normal rhythm GI/Abdominal exam: Present: soft (Patient complains of pain upon palpation of the abdomen diffusely.), normal bowel sounds Extremities exam: Present: other (DP/PT pulses intact. Patient notes pain of her left lower extremity diffusely however screams in pain upon touching the lateral upper thigh. No obvious deformity. No shortening or rotation.) Neurological exam: Present: alert (Oriented to place and person however not time.) Skin exam: Present: warm, dry Course Vital Signs 12/26/22 12/26/22 12/26/22 14:02 17:05 18:05 Temperature 98 F Pulse Rate 67 70 60 Respiratory 16 20 16 Rate Blood Pressure 121/58 145/67 174/88 O2 Sat by Pulse 95 98 98 Oximetry 12/26/22 19:05 Temperature Pulse Rate 68 Respiratory 20 Rate Blood Pressure 156/76 O2 Sat by Pulse 95 Oximetry Medical Decision Making - Medical Decision Making Was pt. sent in by a medical professional or institution (, PA, DIET AIDE, urgent care, hospital, or alf...) When possible be specific @ -No Did you speak to anyone other than the patient for history (EMS, parent, family, police, friend...)? What history was obtained from this source @ -Spoke to someone who provided portions of the history. For further details please see HPI. Did you review nursing and triage notes (agree or disagree)? Why? @ -I reviewed and agree with nursing and triage notes Were old charts reviewed (outside hosp., previous admission, EMS record, old EKG, old radiological studies, urgent care reports/EKG's, alf records)? Report findings @ -Prior visit reviewed with discharge on 12/24/22 reviewed. For further details please see HPI. Differential Diagnosis (chest pain, altered mental status, abdominal pain women, abdominal pain men, vaginal bleeding, weakness, fever, dyspnea, syncope, headache, dizziness, GI bleed, back pain, seizure, CVA, palpatations, mental health, musculoskeletal)? @ -Differential Musculoskeletal Muscular strain, contusion, ligament sprain, fracture, arthritis, septic arthritis, bursitis, cellulitis, muscle spasm, nerve compression, DVT, arterial occlusion, herpes zoster, electrolyte abnormality, tumor.... This is not meant to be in all inclusive list Differential Abdominal Pain Women: Appendicitis, Cholecystitis, diverticulosis, ischemic bowel, pancreatitis, hepatitis, UTI, gastroenteritis, AAA, incarcerated hernia, bowel obstruction, constipation, inflammatory bowel, hepatitis, peptic ulcer disease, splenic infarction, perforated viscus, vulvitis, ovarian torsion, PID, kidney stone, placenta abruption, this is not meant to be an all-inclusive list EKG interpreted by me (3pts min.). @ -As above X-rays interpreted by me (1pt min.). @ -X-ray of the pelvis showed no acute findings CT interpreted by me (1pt min.). @ -CT abdomen pelvis showed no acute findings U/S interpreted by me (1pt. min.). @ -None done What testing was considered but not performed or refused? (CT, X-rays, U/S, labs)? Why? @ -None What meds were considered but not given or refused? Why? @ -None Did you discuss the management of the patient with other professionals (professionals i.e. , PA, DIET AIDE, lab, RT, psych nurse, oncology social work, gas substation operator, teacher, mounted police officer, director of casework services)? Give summary @ -Discussed with [facility], who accepted admission Was smoking cessation discussed for >3mins.? @ -No Was critical care preformed (if so, how long)? @ -No Were there social determinants of health that impacted care today? How? (Homelessness, low income, unemployed, alcoholism, drug addiction, transportation, low edu. Level, literacy, decrease access to med. care, residential, rehab)? @ -No Was there de-escalation of care discussed even if they declined (Discuss DNR or withdrawal of care, Hospice)? DNR status @ -No What co-morbidities impacted this encounter? (DM, HTN, Smoking, COPD, CAD, Cancer, CVA, ARF, Chemo, Hep., AIDS, mental health diagnosis, sleep apnea, morbid obesity)? @ -Dementia Was patient admitted / discharged? Hospital course, mention meds given and route, prescriptions, significant lab abnormalities, going to OR and other pertinent info. @ -Admission. Patient previously here on 12/24/22 currently on antibiotics. Laboratory studies here show improvement of white count from previous visit and improvement of urine from previous visit. Otherwise laboratory studies only significant for an elevated BUN at 29. Patient will be admitted with consult to social work, PTOT for possible placement. Discussed plan of care with patient's son who is in agreement. Undiagnosed new problem with uncertain prognosis? @ -No Drug Therapy requiring intensive monitoring for toxicity (Heparin, Nitro, Insulin, Cardizem)? @ -No Were any procedures done? @ -No Diagnosis/symptom? @ -SHAHID, inability to ambulate. Acute, or Chronic, or Acute on Chronic? @ -Acute Uncomplicated (without systemic symptoms) or Complicated (systemic symptoms)? @ -Uncomplicated Side effects of treatment? @ -No Exacerbation, Progression, or Severe Exacerbation? @ -No Poses a threat to life or bodily function? How? (Chest pain, USA, CT, pneumonia, PE, COPD, DKA, ARF, appy, cholecystitis, CVA, Diverticulitis, Homicidal, Suicidal, threat to staff... and all critical care pts) @ -No - Lab Data Result diagrams: 12/26/22 16:23 12/26/22 16:23 Lab Results 12/26/22 12/26/22 12/26/22 Range/Units 14:54 16:23 16:23 WBC 11.6 H (3.8-10.6) k/uL RBC 4.30 (3.80-5.40) m/uL Hgb 13.5 (11.4-16.0) gm/dL Hct 39.2 (34.0-46.0) % MCV 91.2 (80.0-100.0) fL MCH 31.3 (25.0-35.0) pg MCHC 34.3 (31.0-37.0) g/dL RDW 12.8 (11.5-15.5) % Plt Count 201 (150-450) k/uL MPV 9.2 Neutrophils % 75 % Lymphocytes % 14 % Monocytes % 7 % Eosinophils % 3 % Basophils % 1 % Neutrophils # 8.6 H (1.3-7.7) k/uL Lymphocytes # 1.6 (1.0-4.8) k/uL Monocytes # 0.8 (0-1.0) k/uL Eosinophils # 0.4 (0-0.7) k/uL Basophils # 0.1 (0-0.2) k/uL Sodium 138 (137-145) mmol/L Potassium 3.4 L (3.5-5.1) mmol/L Chloride 104 (98-107) mmol/L Carbon Dioxide 30 (22-30) mmol/L Anion Gap 4 mmol/L BUN 29 H (7-17) mg/dL Creatinine 0.81 (0.52-1.04) mg/dL Est GFR (CKD-EPI)AfAm 79 (>60 ml/min/1.73 sqM) Est GFR (CKD-EPI)NonAf 68 (>60 ml/min/1.73 sqM) Glucose 120 H (74-99) mg/dL Calcium 9.8 (8.4-10.2) mg/dL Total Bilirubin 0.8 (0.2-1.3) mg/dL AST 25 (14-36) U/L ALT 15 (4-34) U/L Alkaline Phosphatase 77 (38-126) U/L Total Protein 6.9 (6.3-8.2) g/dL Albumin 3.4 L (3.5-5.0) g/dL Amylase 208 H (30-110) U/L Lipase 255 (23-300) U/L Urine Color Light Red Urine Appearance Cloudy H (Clear) Urine pH 5.5 (5.0-8.0) Ur Specific [place] 1.025 (1.001-1.035) Urine Protein Trace H (Negative) Urine Glucose (UA) Negative (Negative) Urine Ketones Negative (Negative) Urine Blood Negative (Negative) Urine Nitrite Negative (Negative) Urine Bilirubin Negative (Negative) Urine Urobilinogen <2.0 (<2.0) mg/dL Ur Leukocyte Esterase Small H (Negative) Urine RBC 1 (0-5) /hpf Urine WBC 10 H (0-5) /hpf Ur Squamous Epith Cells 7 H (0-4) /hpf Urine Mucus Moderate H (None) /hpf Disposition Clinical Impression: SHAHID (acute kidney injury), Difficulty in walking Disposition: ADMITTED IP TO THIS [facility] Condition: Good Referrals: Maryann Craig DO [Primary Care Provider] - 1-2 days Time of Disposition: 19:39
[2022-12-26 17:07] LABS: Basophils # (A) 0.1 k/uL (0-0.2); Basophils % (A) 1 %; Eosinophils # (A) 0.4 k/uL (0-0.7); Eosinophils % (A) 3 %; HCT 39.2 % (34.0-46.0); HGB 13.5 gm/dL (11.4-16.0); Lymphocytes # (A) 1.6 k/uL (1.0-4.8); Lymphocytes % (A) 14 %; MCH 31.3 pg (25.0-35.0); MCHC 34.3 g/dL (31.0-37.0); MCV 91.2 fL (80.0-100.0); Mean Platelet Volume 9.2; Monocytes # (A) 0.8 k/uL (0-1.0); Monocytes % (A) 7 %; Neutrophils # (A) 8.6 k/uL (1.3-7.7); Neutrophils % (A) 75 %; Platelet Count 201 k/uL (150-450); RDW 12.8 % (11.5-15.5); WBC 11.6 k/uL (3.8-10.6)
[2022-12-26 17:17] LABS: ALT 15 U/L (4-34); AST 25 U/L (14-36); African American GFR (CKD) 79 (>60 ml/min/1.73 sqM); Albumin 3.4 g/dL (3.5-5.0); Alkaline Phosphatase 77 U/L (38-126); Amylase 208 U/L (30-110); Anion Gap 4 mmol/L; Blood Urea Nitrogen 29 mg/dL (7-17); Calcium 9.8 mg/dL (8.4-10.2); Carbon Dioxide 30 mmol/L (22-30); Chloride 104 mmol/L (98-107); Glucose 120 mg/dL (74-99); Lipase 255 U/L (23-300); Non-African American GFR(CKD) 68 (>60 ml/min/1.73 sqM); Potassium 3.4 mmol/L (3.5-5.1); Sodium 138 mmol/L (137-145); Total Bilirubin 0.8 mg/dL (0.2-1.3); Total Protein 6.9 g/dL (6.3-8.2)
[2022-12-26] MEDS ORDERED: LORazepam 2 MG/ML INJ IV STA (17:17)
--- NOTE | 2022-12-26 17:53 | XR ---
EXAMINATION TYPE: XR pelvis AP view DATE OF EXAM: 12/26/2022 COMPARISON: None HISTORY: Pain left hip TECHNIQUE: AP pelvis FINDINGS: Symphysis pubis and sacroiliac joints are normal. A right hip prosthesis is present Left hip articulates with the acetabulum. Joint space is preserved. No acute fractures are evident. N ormal bowel gas is present. IMPRESSION: 1. No acute osseous abnormality AP pelvis
--- NOTE | 2022-12-26 19:22 | CT ---
EXAMINATION TYPE: CT abdomen pelvis wo con DATE OF EXAM: 12/26/2022 COMPARISON: 12/24/2022 INDICATION: abd TTP diffuse and AMS DLP: 1119.5 mGycm, Automated exposure control for dose reduction was used. CONTRAST: 0 mL of Isovue 300. Study performed without Oral Contrast TECHNIQUE: Axial images were obtained from above the diaphragm to the pubic rami in the axial plane a t 5 mm thick sections. Reconstructed images are reviewed on the computer in the coronal plane. FINDINGS: CT ABDOMEN: Upper abdomen is out of the [id number]. Portions of the liver pancreas adrenal glands and gallbladder are visualized are normal. Previous splenic cyst is not identified. Kidneys appear wi thout masses cyst process. Punctate nonobstructing renal stone may be the mid right kidney measuring 0.3 cm. Vascular calcifications within the aorta. Inferior vena cava is somewhat flattened which can be related to the patient's volume status. Loops of bowel within the abdomen and pelvis appear normal. Diverticular changes are noted within the sigmoid colon. No inflammatory changes are adjacent CT PELVIS: The lower pelvis is limited due to artifact from prosthesis. Osseous structures as visuali zed appear normal. No lytic or sclerotic lesion is evident. The appendix is not identified. No inflam matory changes or dilated tubular structures are evident. Uterus and ovaries are not identified. IMPRESSIONS: 1. No suspicious interval changes.
[2022-12-26] MEDS ORDERED: ONDANSETRON 4 MG/2 ML VIAL IVP PRN (19:51)
[2022-12-26] MEDS ORDERED: NALOXONE 0.4 MG/ML 1 ML VIAL IV PRN (19:51)
[2022-12-26] MEDS ORDERED: LORazepam 2 MG/ML INJ IV PRN (19:53)
[2022-12-26] MEDS ORDERED: SODIUM CHLORIDE 0.9% 1,000 ML IV STA (19:54)
[2022-12-26] MEDS ORDERED: POTASSIUM CHLORIDE ER 20 MEQ TAB.ER PO STA (22:41)
[2022-12-26] MEDS ORDERED: LOPERAMIDE 2 MG CAP PO PRN (22:42)
[2022-12-26] MEDS ORDERED: NITROGLYCERIN SL TABS 0.4 MG TAB SUBLINGUAL PRN (22:42)
[2022-12-26] MEDS: SODIUM CHLORIDE 0.9% 1,000 ML IV SCH (22:48)
[2022-12-26] MEDS ORDERED: amLODIPine 10 MG TAB PO ONE (23:00)
[2022-12-26] MEDS: SENNOSIDES-DOCUSATE SODIUM 1 EACH TAB PO SCH (23:32)
[2022-12-26] MEDS: LEVOTHYROXINE 125 MCG TAB PO SCH (23:33)
[2022-12-26] MEDS: RIVAROXABAN 15 MG TAB PO SCH (23:46)
[2022-12-27] MEDS: LEVOTHYROXINE 75 MCG TAB PO SCH (06:56)
[2022-12-27] MEDS: SODIUM CHLORIDE 0.9% 1,000 ML IV SCH ×2 (07:22→17:11)
[2022-12-27 09:10] LABS: Basophils # (A) 0.06 X 10*3/uL (0.00-0.10); Basophils % (A) 0.7 %; Eosinophils # (A) 0.31 X 10*3/uL (0.04-0.35); Eosinophils % (A) 3.6 %; HCT 42.7 % (37.2-46.3); HGB 14.2 d/dL (12.0-15.0); Lymphocytes # (A) 1.13 X 10*3/uL (0.90-5.00); MCH 31.1 pg (27.0-32.0); MCHC 33.3 d/dL (32.0-37.0); MCV 93.4 FL (80.0-97.0); Mean Platelet Volume 11.8 FL (9.5-12.2); Monocytes # (A) 0.85 X 10*3/uL (0.20-1.00); Monocytes % (A) 9.8 %; NRBC Per 100 WBC 0 X 10*3/uL (0.00-0.01); Neutrophils # (A) 6.27 X 10*3/uL (1.80-7.70); Neutrophils % (A) 72.3 %; Platelet Count 196 X 10*3/uL (140-440); RBC 4.57 X 10*6/uL (4.10-5.20); RDW 12.5 % (11.5-14.5); WBC 8.67 X 10*3/uL (4.50-10.00)
[2022-12-27] MEDS: CYANOCOBALAMIN 500 MCG TAB PO SCH (09:13)
[2022-12-27] MEDS: VORTIOXETINE HYDROBROMIDE 20 MG TABLET PO SCH (09:13)
[2022-12-27] MEDS: FERROUS SULFATE 325 MG TAB PO SCH (09:13)
[2022-12-27] MEDS: DONEPEZIL 10 MG TAB PO SCH (09:13)
[2022-12-27] MEDS: CEFDINIR 300 MG CAP PO SCH ×2 (09:13→22:15)
[2022-12-27] MEDS: LORATADINE 10 MG TAB PO SCH (09:13)
[2022-12-27] MEDS: amLODIPine 10 MG TAB PO SCH (09:13)
[2022-12-27] MEDS: PANTOPRAZOLE 40 MG TABLET PO SCH ×2 (09:13→22:15)
[2022-12-27] MEDS: MEMANTINE 10 MG TAB PO SCH ×2 (09:13→22:15)
[2022-12-27] MEDS: MULTIVITAMINS, THERA 1 EACH TAB PO SCH (09:14)
[2022-12-27 09:36] LABS: BUN/Creat Ratio 25.71 Ratio (12.00-20.00); Calcium 9.7 mg/dL (8.7-10.3); Carbon Dioxide 26.1 mmol/L (21.6-31.8); Chloride 104 mmol/L (96-109); Glucose 149 mg/dL (70-110); Magnesium 1.8 mg/dL (1.5-2.4); Potassium 3.5 mmol/L (3.5-5.5); Sodium 140 mmol/L (135-145)
[2022-12-27] MEDS: lisinopriL 5 MG TAB PO SCH (10:26)
--- NOTE | 2022-12-27 21:02 | P.HPIM ---
History of Present Illness H&P Date: 12/27/22 This is an 82-year-old female with medical history of atrial fibrillation, COPD, dementia, diabetes, GERD, hyperlipidemia, hypertension, hypothyroidism and memory impairment. Patient was seen in the ER 2 days ago for altered mental status and weakness and per the son at the bedside was patent treated for an acute urinary tract infection and on Macrobid outpatient. She was discharged home with negative urine culture and was given 3 days of oral Ceftin. Patient will return to the ER with concern for inability to ambulate and pain in the left hip/leg which patient is tender to touch left knee and limited mobility. Patient denies any falls at home and no new injuries history of previous admis gildardo to the hospital. He had to be attributable to lift her up off the toilet at home today. States everything hurts. She denies shortness of breath denies chest pain denies any nausea vomiting or diarrhea. Pelvis x-ray is negative for any acute osseous abnormalities. Abdominal pelvis CT shows no suspicious interval changes. Patient is alert 2 she is able to state her name and date of she knows she is in the hospital she does not know who her son is at the bedside and seems confused as to why she is in the hospital. On admission her white count is 11.6 has since normalized, sodium is 138, potassium 3.4, BUN 29, creatinine 0.81, glucose is 120s, AST ALT are normal, amylase is mildly elevated at 208. Her urine is cloudy with small leukocyte esterase and moderate mucus. Not suggestive of any acute infection are noted that again her urine culture from 2 days prior is negative. Patient is admitted to the hospital under medicine with consult placed to physical therapy and will likely need subacute rehab at discharge. REVIEW OF SYSTEMS: CONSTITUTIONAL: No fever, no malaise, no fatigue. HEENT: No recent visual problems or hearing problems. Denied any sore throat. CARDIOVASCULAR: No chest pain, orthopnea, PND, no palpitations, no syncope. PULMONARY: No shortness of breath, no cough, no hemoptysis. GASTROINTESTINAL: No diarrhea, no nausea, no vomiting, no abdominal pain. NEUROLOGICAL: No headaches, no weakness, no numbness. HEMATOLOGICAL: Denies any bleeding or petechiae. GENITOURINARY: Denies any burning micturition, frequency, or urgency. MUSCULOSKELETAL/RHEUMATOLOGICAL: Denies any joint pain, swelling, or any muscle pain. ENDOCRINE: Denies any polyuria or polydipsia. The rest of the 14-point review of systems is negative PHYSICAL EXAMINATION: GENERAL: The patient is alert and oriented x2, not in any acute distress. Well developed, well nourished. HEENT: Pupils are round and equally reacting to light. EOMI. No scleral icterus. No conjunctival pallor. Normocephalic, atraumatic. No pharyngeal erythema. No thyromegaly. CARDIOVASCULAR: S1 and S2 present. No murmurs, rubs, or gallops. PULMONARY: Chest is clear to auscultation, no wheezing or crackles. ABDOMEN: Soft, nontender, nondistended, normoactive bowel sounds. No palpable organomegaly. MUSCULOSKELETAL: No joint swelling or deformity. Left knee pain and left hip pain. EXTREMITIES: No cyanosis, clubbing, or pedal edema. NEUROLOGICAL: Gross neurological examination did not reveal any focal deficits. Diffuse weakness. SKIN: No rashes. Assessment Generalized weakness Leukocytosis reactive Mild acute renal injury improved with IV hydration History of atrial fibrillation History of COPD with no acute exacerbation history of GERD Hyperlipidemia Thyroid disorder Coronary artery disease with prior cardiac stenting Former smoker History of dementia GI prophylaxis DVT prophylaxis No Code Plan Continue IV fluids Resume appropriate home medications Continue oral antibiotics for 1 more day to complete course of therapy for prior UTI Lumbar and left knee xray PT/OT consultation AM labs The impression and plan of care has been dictated by Catherine Yee, Nurse Practitioner as directed. Dr. Nadia MD I have performed a history and physical examination and medical decision making of this patient, discussed the same with the dictator, and agree with the dictators assessment and plan as written, documented as a scribe. Based on total visit time, I have performed more than 50% of this visit. 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 Past Anesthesia/Blood Transfusion Reactions: No Reported Reaction Date of Last Stent Placement:: 2017 Smoking Status: Former smoker - Past Family History Daughter(s) Family Medical History: Cancer Father History Unknown: Yes Additional Family Medical History / Comment(s): BRAIN TUMOR Mother Family Medical History: Cancer Medications and Allergies Home Medications Medication Instructions Recorded Confirmed Type Levothyroxine Sodium [Synthroid] 150 mcg PO SUTUWETHSA 09/30/13 12/26/22 History Pravastatin Sodium [Pravachol] 80 mg PO HS 11/07/14 12/26/22 History Multivitamins, Thera [Multivitamin 1 tab PO DAILY 06/01/18 12/26/22 History (formulary)] Sotalol [Betapace] 80 mg PO BID 06/01/18 12/26/22 History Ferrous Sulfate [Iron (65 MG 325 mg PO DAILY 06/16/18 12/26/22 History Elemental)] Losartan/Hydrochlorothiazide 1 tab PO DAILY 08/18/18 12/26/22 History [Losartan-Hctz 100-25 mg Tab] Donepezil [Aricept] 10 mg PO DAILY 06/22/21 12/26/22 History Memantine [Namenda] 10 mg PO BID 06/22/21 12/26/22 History Mirabegron [Myrbetriq] 50 mg PO DAILY 06/22/21 12/26/22 History Sennosides-Docusate Sodium 1 tab PO HS 06/22/21 12/26/22 History [Senokot-S] Cyanocobalamin [Vitamin B-12] 500 mcg PO DAILY 07/16/21 12/26/22 History Rivaroxaban [Xarelto] 15 mg PO HS 07/16/21 12/26/22 History Pantoprazole [Protonix] 40 mg PO BID 02/23/22 12/26/22 History Acetaminophen [Tylenol Extra 500 mg PO Q8HR PRN #30 tablet 02/24/22 12/26/22 Rx Strength] Levothyroxine Sodium [Synthroid] 125 mcg PO MOFR 06/05/22 12/26/22 History Loratadine [Claritin] 10 mg PO DAILY 06/05/22 12/26/22 History Nitroglycerin Sl Tabs [Nitrostat] 0.4 mg SL Q5M PRN 06/05/22 12/26/22 History Vortioxetine Hydrobromide 20 mg PO DAILY 06/05/22 12/26/22 History [Trintellix] amLODIPine [Norvasc] 10 mg PO DAILY 30 Days #30 tab 06/09/22 12/26/22 Rx Loperamide [Imodium] 2 mg PO QID PRN cap 08/08/22 12/26/22 Rx Methenamine Hippurate 1 gm PO BID 12/24/22 12/26/22 History cefUROXime axetiL [Ceftin] 500 mg PO BID 5 Days #10 tab 12/25/22 12/26/22 Rx Allergies Allergy/AdvReac Type Severity Reaction Status Date / Time azithromycin Allergy Rash/Hives Verified 12/26/22 20:19 [From Zithromax Z-Chau] codeine Allergy Unknown Verified 12/26/22 20:19 hydrochlorothiazide Allergy Unknown Verified 12/26/22 20:19 [From Dyazide] lincomycin HCl Allergy Unknown Verified 12/26/22 20:19 [From Lincocin] meperidine HCl [From Demerol] Allergy Unknown Verified 12/26/22 20:19 metronidazole [From Flagyl] Allergy Unknown Verified 12/26/22 20:19 Metronidazole HCl Allergy Unknown Verified 12/26/22 20:19 [From Flagyl] nitrofurantoin Allergy Confusion Verified 12/26/22 20:19 [From Macrobid] Penicillins Allergy Unknown Verified 12/26/22 20:19 Childhood Dxdotsn-AUK-MfS Reductase Allergy Unknown Verified 12/26/22 20:19 Inhibitor Sulfa (Sulfonamide Allergy Unknown Verified 12/26/22 20:19 Antibiotics) tetracycline [Tetracycline] Allergy Unknown Verified 12/26/22 20:19 triamterene [From Dyazide] Allergy Unknown Verified 12/26/22 20:19 watermelon Allergy Swelling Verified 12/26/22 20:19 atorvastatin calcium AdvReac MUSCLE Verified 12/26/22 20:19 [From Lipitor] ACHES rosuvastatin calcium AdvReac MUSCLE Verified 12/26/22 20:19 [From Crestor] ACHES Physical Exam Vitals: Vital Signs Temp Pulse Pulse Resp BP BP Pulse Ox 12/27/22 07:00 98.5 F 76 18 190/78 94 L 12/27/22 01:45 97.6 F 70 14 168/75 93 L 12/26/22 21:51 97.8 F 62 28 H 159/76 91 L 12/26/22 20:51 86 16 178/89 98 12/26/22 19:05 68 20 156/76 95 12/26/22 18:05 60 16 174/88 98 12/26/22 17:05 70 20 145/67 98 12/26/22 14:02 98 F 67 16 121/58 95 Intake and Output 12/26/22 12/27/22 12/27/22 22:59 06:59 14:59 Output Total 500 Balance -500 Output: Urine 500 Other: Weight 99.79 kg Results CBC & Chem 7: 12/27/22 05:20 12/27/22 05:20 Labs: Abnormal Lab Results - Last 24 Hours (Table) 12/26/22 12/26/22 12/26/22 Range/Units 14:54 16:23 16:23 WBC 11.6 H (3.8-10.6) k/uL Neutrophils # 8.6 H (1.3-7.7) k/uL Potassium 3.4 L (3.5-5.1) mmol/L BUN 29 H (7-17) mg/dL BUN/Creatinine Ratio (12.00-20.00) Ratio Glucose 120 H (74-99) mg/dL Albumin 3.4 L (3.5-5.0) g/dL Amylase 208 H (30-110) U/L Urine Appearance Cloudy H (Clear) Urine Protein Trace H (Negative) Ur Leukocyte Esterase Small H (Negative) Urine WBC 10 H (0-5) /hpf Ur Squamous Epith Cells 7 H (0-4) /hpf Urine Mucus Moderate H (None) /hpf 12/27/22 Range/Units 05:20 WBC (3.8-10.6) k/uL Neutrophils # (1.3-7.7) k/uL Potassium (3.5-5.1) mmol/L BUN (7-17) mg/dL BUN/Creatinine Ratio 25.71 H (12.00-20.00) Ratio Glucose 149 H (74-99) mg/dL Albumin (3.5-5.0) g/dL Amylase (30-110) U/L Urine Appearance (Clear) Urine Protein (Negative) Ur Leukocyte Esterase (Negative) Urine WBC (0-5) /hpf Ur Squamous Epith Cells (0-4) /hpf Urine Mucus (None) /hpf Assessment and Plan Time with Patient: Less than 30
[2022-12-27] MEDS ORDERED: SODIUM CHLORIDE 0.9% 1,000 ML IV SCH (21:15)
[2022-12-27] MEDS: ACETAMINOPHEN TAB 325 MG TAB PO PRN (22:14)
[2022-12-27] MEDS: PRAVASTATIN SODIUM 80 MG TAB PO SCH (22:15)
[2022-12-27] MEDS: RIVAROXABAN 15 MG TAB PO SCH (22:15)
[2022-12-27] MEDS: SENNOSIDES-DOCUSATE SODIUM 1 EACH TAB PO SCH (22:15)
--- NOTE | 2022-12-27 23:22 | XR ---
EXAMINATION TYPE: XR lumbar spine 2 or 3V DATE OF EXAM: 12/27/2022 COMPARISON: None HISTORY: Pain TECHNIQUE: 3 view lumbar spine FINDINGS: There are 5 lumbar-type vertebral bodies. Pedicles are intact. There is some exaggeration o f the lumbar lordosis. Degenerative disc changes with narrowing of disc height are present L5-S1. Rem aining disc heights appear preserved. Vascular calcification is within the aorta. IMPRESSION: 1. Mild degenerative disc changes L5-S1
--- NOTE | 2022-12-27 23:23 | XR ---
EXAMINATION TYPE: XR knee complete LT DATE OF EXAM: 12/27/2022 COMPARISON: 01/10/2015 HISTORY: Pain TECHNIQUE: 3 view left knee FINDINGS: There is narrowing of the medial lateral compartment joint spaces. Lateral femoral condylar spurring is present. Medial femoral condylar and tibial plateau spurring is present. Large joint eff usion is present. Posterior superior patellar spur is present. Suprapatellar intranodular joint calci fication appears stable IMPRESSION: 1. Large joint effusion. 2. Moderate degenerative changes left knee
[2022-12-28 00:23] LABS: Glucose,Whole Blood 133 mg/dL (70-110)
[2022-12-28] MEDS: ACETAMINOPHEN TAB 325 MG TAB PO PRN ×2 (05:01→20:10)
[2022-12-28] MEDS: LEVOTHYROXINE 75 MCG TAB PO SCH (06:24)
[2022-12-28] MEDS: PANTOPRAZOLE 40 MG TABLET PO SCH ×2 (09:29→20:10)
[2022-12-28] MEDS: FERROUS SULFATE 325 MG TAB PO SCH (09:29)
[2022-12-28] MEDS: CYANOCOBALAMIN 500 MCG TAB PO SCH (09:29)
[2022-12-28] MEDS: amLODIPine 10 MG TAB PO SCH (09:29)
[2022-12-28] MEDS: LORATADINE 10 MG TAB PO SCH (09:29)
[2022-12-28] MEDS: MULTIVITAMINS, THERA 1 EACH TAB PO SCH (09:29)
[2022-12-28] MEDS: VORTIOXETINE HYDROBROMIDE 20 MG TABLET PO SCH (09:29)
[2022-12-28] MEDS: lisinopriL 5 MG TAB PO SCH (09:29)
[2022-12-28] MEDS: MEMANTINE 10 MG TAB PO SCH ×2 (09:29→20:10)
[2022-12-28] MEDS: CEFDINIR 300 MG CAP PO SCH (09:29)
[2022-12-28] MEDS: DONEPEZIL 10 MG TAB PO SCH (09:29)
--- NOTE | 2022-12-28 11:19 | P.CNOR ---
History of Present Illness - [facility] Consult date: 12/28/22 History of present illness: This patient is an 82- year old female with a past medical history of atrial fibrillation, diabetes, dementia that is admitted under the care of internal medicine for UTI and inability to ambulate. Patient was recently discharged on 12/24/22 after admission for UTI with sepsis. Patient was brought back to the em ergency department on 12/26/22 by her son due to left knee pain and inability to ambulate. The patient was admitted under the care of internal medicine with a consult placed to orthopedic surgery for evaluation of her left knee. The patient is examined bedside this morning Dr. Kenney. She is confused. She states her knee does hurt when asked. No additional complaints at this time. Vital signs stable. Past Medical History Past Medical History: Atrial Fibrillation, COPD, Dementia, Diabetes Mellitus, GERD/Reflux, Hyperlipidemia, Hypertension, Memory Impairment, Osteoarthritis (OA), Pneumonia, Thyroid Disorder Additional Past Medical History / Comment(s): Right hip wound [id number], diet controlled diabetes, osteoporosis, incontinue Last Myocardial Infarction Date:: 2017 History of Any Multi-Drug Resistant Organisms: None Reported, MRSA, Other MDRO, VRE Year Discovered:: 06/05/22 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 Past Anesthesia/Blood Transfusion Reactions: No Reported Reaction Date of Last Stent Placement:: 2017 Smoking Status: Former smoker - Past Family History Daughter(s) Family Medical History: Cancer Father History Unknown: Yes Additional Family Medical History / Comment(s): BRAIN TUMOR Mother Family Medical History: Cancer Medications and Allergies Home Medications Medication Instructions Recorded Confirmed Type Levothyroxine Sodium [Synthroid] 150 mcg PO SUTUWETHSA 09/30/13 12/26/22 History Pravastatin Sodium [Pravachol] 80 mg PO HS 11/07/14 12/26/22 History Multivitamins, Thera [Multivitamin 1 tab PO DAILY 06/01/18 12/26/22 History (formulary)] Sotalol [Betapace] 80 mg PO BID 06/01/18 12/26/22 History Ferrous Sulfate [Iron (65 MG 325 mg PO DAILY 06/16/18 12/26/22 History Elemental)] Losartan/Hydrochlorothiazide 1 tab PO DAILY 08/18/18 12/26/22 History [Losartan-Hctz 100-25 mg Tab] Donepezil [Aricept] 10 mg PO DAILY 06/22/21 12/26/22 History Memantine [Namenda] 10 mg PO BID 06/22/21 12/26/22 History Mirabegron [Myrbetriq] 50 mg PO DAILY 06/22/21 12/26/22 History Sennosides-Docusate Sodium 1 tab PO HS 06/22/21 12/26/22 History [Senokot-S] Cyanocobalamin [Vitamin B-12] 500 mcg PO DAILY 07/16/21 12/26/22 History Rivaroxaban [Xarelto] 15 mg PO HS 07/16/21 12/26/22 History Pantoprazole [Protonix] 40 mg PO BID 02/23/22 12/26/22 History Acetaminophen [Tylenol Extra 500 mg PO Q8HR PRN #30 tablet 02/24/22 12/26/22 Rx Strength] Levothyroxine Sodium [Synthroid] 125 mcg PO MOFR 06/05/22 12/26/22 History Loratadine [Claritin] 10 mg PO DAILY 06/05/22 12/26/22 History Nitroglycerin Sl Tabs [Nitrostat] 0.4 mg SL Q5M PRN 06/05/22 12/26/22 History Vortioxetine Hydrobromide 20 mg PO DAILY 06/05/22 12/26/22 History [Trintellix] amLODIPine [Norvasc] 10 mg PO DAILY 30 Days #30 tab 06/09/22 12/26/22 Rx Loperamide [Imodium] 2 mg PO QID PRN cap 08/08/22 12/26/22 Rx Methenamine Hippurate 1 gm PO BID 12/24/22 12/26/22 History cefUROXime axetiL [Ceftin] 500 mg PO BID 5 Days #10 tab 12/25/22 12/26/22 Rx Allergies Allergy/AdvReac Type Severity Reaction Status Date / Time azithromycin Allergy Rash/Hives Verified 12/26/22 20:19 [From Zithromax Z-Chau] codeine Allergy Unknown Verified 12/26/22 20:19 hydrochlorothiazide Allergy Unknown Verified 12/26/22 20:19 [From Dyazide] lincomycin HCl Allergy Unknown Verified 12/26/22 20:19 [From Lincocin] meperidine HCl [From Demerol] Allergy Unknown Verified 12/26/22 20:19 metronidazole [From Flagyl] Allergy Unknown Verified 12/26/22 20:19 Metronidazole HCl Allergy Unknown Verified 12/26/22 20:19 [From Flagyl] nitrofurantoin Allergy Confusion Verified 12/26/22 20:19 [From Macrobid] Penicillins Allergy Unknown Verified 12/26/22 20:19 Childhood Wjgnhbr-ELE-BdC Reductase Allergy Unknown Verified 12/26/22 20:19 Inhibitor Sulfa (Sulfonamide Allergy Unknown Verified 12/26/22 20:19 Antibiotics) tetracycline [Tetracycline] Allergy Unknown Verified 12/26/22 20:19 triamterene [From Dyazide] Allergy Unknown Verified 12/26/22 20:19 watermelon Allergy Swelling Verified 12/26/22 20:19 atorvastatin calcium AdvReac MUSCLE Verified 12/26/22 20:19 [From Lipitor] ACHES rosuvastatin calcium AdvReac MUSCLE Verified 12/26/22 20:19 [From Crestor] ACHES Physical Examination On examination, patient is lying in bed in no apparent distress. She is alert and answers questions appropriately, although is confused. Her head appears normocephalic and atraumatic. Her breathing appears nonlabored. On inspection of her bilateral upper extremities, no obvious deformities or signs of trauma. On inspection of the right lower extremity, no obvious deformities or signs of trauma. Focused examination of the left knee is conducted. On inspection of the left knee, there is a large knee effusion. There is no overlying erythema, warmth. No ecchymosis or abrasions. No signs of trauma. There is severe, diffuse pain on palpation of the knee. Patient does not tolerate passive range of motion of the knee at this time. Motor and sensory function is intact of the left lower extremity. Left lower extremity is warm and well-perfused. Calf is soft and nontender. Results Left knee x-ray 12/27/22: No acute fractures identified. There is moderate arthritic changes at the knee. Pelvis x-ray 12/26/22: No acute fractures identified of the left hip. - Labs Labs: Abnormal Lab Results - Last 24 Hours (Table) 12/28/22 Range/Units 00:21 POC Glucose (mg/dL) 133 H (70-110) mg/dL H & H 12/26/22 12/27/22 Range/Units 16:23 05:20 Hgb 13.5 14.2 (11.4-16.0) gm/dL Hct 39.2 42.7 (34.0-46.0) % Result Diagrams: 12/27/22 05:20 12/27/22 05:20 Assessment and Plan Assessment: Left knee pain Left knee effusion Left knee arthritis Possible acute gout flare Plan: - The patient's knee was aspirated bedside this morning. The synovial fluid will be sent to the lab for cell count, crystals, culture. Further recommendations pending results synovial fluid analysis. Procedure: The skin overlying the superior lateral pole of the patella was prepped with alcohol. An 18g needle was inserted into the suprapatellar pouch and 12mls of cloudy yellow, blood tinged fluid was aspirated. The needle was removed and a band aid was applied. The patient tolerated this well. The fluid was sent to the lab.
[2022-12-28] MEDS: SODIUM CHLORIDE 0.9% 1,000 ML IV SCH (12:27)
[2022-12-28 13:59] LABS: Appearance,BF Cloudy; Color,BF Yellow
[2022-12-28 14:00] LABS: Nucleated Cells, Body Fluid 1100 /uL; RBC, Body Fluid 1500 /uL
--- NOTE | 2022-12-28 16:20 | P.PN ---
Subjective Progress Note Date: 12/28/22 This is an 82-year-old female with medical history of atrial fibrillation, COPD, dementia, diabetes, GERD, hyperlipidemia, hypertension, hypothyroidism and memory impairment. Patient was seen in the ER 2 days ago for altered mental status and weakness and per the son at the bedside was patent treated for an acute urinary tract infection and on Macrobid outpatient. She was discharged home with negative urine culture and was given 3 days of oral Ceftin. Patient will return to the ER with concern for inability to ambulate and pain in the left hip/leg which patient is tender to touch left knee and limited mobility. Patient denies any falls at home and no new injuries history of previous admission to the hospital. He had to be attributable to lift her up off the toilet at home today. States everything hurts. She denies shortness of breath denies chest pain denies any nausea vomiting or diarrhea. Pelvis x-ray is negative for any acute osseous abnormalities. Abdominal pelvis CT shows no jaqui picious interval changes. Patient is alert 2 she is able to state her name and date of she knows she is in the hospital she does not know who her son is at the bedside and seems confused as to why she is in the hospital. On admission her white count is 11.6 has since normalized, sodium is 138, potassium 3.4, BUN 29, creatinine 0.81, glucose is 120s, AST ALT are normal, amylase is mildly elevated at 208. Her urine is cloudy with small leukocyte esterase and moderate mucus. Not suggestive of any acute infection are noted that again her urine culture from 2 days prior is negative. Patient is admitted to the hospital under medicine with consult placed to physical therapy and will likely need subacute rehab at discharge. 12/28/22 Patient is evaluated in the medical floor. Her son is at the bedside reports that her mentation is improved and he states that she is at baseline. She does have dementia and does have sundowners which son confirms. Knee x-ray of the left shows a large joint effusion, per son he feels this is causing her the most pain and inability to stand up from a sitting position. Orthopedics consultation requested and performed underwent aspiration of the left knee effusion. Fluid was cloudy yellow blood tinged. Fluid will be sent for cultures and cytology. Differential includes gout flare up vs infectious. Review of Systems Constitutional: Denied any fatigue denied any fever. Cardio vascular: denied any chest pain, palpitations Gastrointestinal: denied any nausea, vomiting, diarrhea Pulmonary: Denied any shortness of breath cough Neurologic denied any new focal deficits All inpatient medications were reviewed and appropriate changes in these medications as dictated in the interval history and assessment and plan. PHYSICAL EXAMINATION: GENERAL: The patient is alert and oriented x2, not in any acute distress. Well developed, well nourished. HEENT: Pupils are round and equally reacting to light. EOMI. No scleral icterus. No conjunctival pallor. Normocephalic, atraumatic. No pharyngeal erythema. No thyromegaly. CARDIOVASCULAR: S1 and S2 present. No murmurs, rubs, or gallops. PULMONARY: Chest is clear to auscultation, no wheezing or crackles. ABDOMEN: Soft, nontender, nondistended, normoactive bowel sounds. No palpable organomegaly. MUSCULOSKELETAL: No joint swelling or deformity. Left knee pain and left hip pain. Limited ROM to the left knee. EXTREMITIES: No cyanosis, clubbing, or pedal edema. NEUROLOGICAL: Gross neurological examination did not reveal any focal deficits. Diffuse weakness. SKIN: No rashes. Assessment Generalized weakness Left knee pain and decreased range of motion with large left knee effusion s/p aspiration of 12mls of synovial fluid. Leukocytosis reactive Mild acute renal injury improved with IV hydration History of atrial fibrillation History of COPD with no acute exacerbation history of GERD Hyperlipidemia Thyroid disorder Coronary artery disease with prior cardiac stenting Former smoker History of dementia GI prophylaxis DVT prophylaxis No Code Plan Continue IV fluids Resume appropriate home medications Cytology from the left knee aspiration pending possible gout versus infectious pending findings patient will be started on anti-inflammatory medication or steroids. Orthopedics following. PT/OT consultation family wanting patient to discharge to subacute rehab prior to returning home. Completed course of antibiotics for the UTI. AM labs The impression and plan of care has been dictated by Catherine Yee Nurse Practitioner as directed. Dr. Nadia MD I have performed a history and physical examination and medical decision making of this patient, discussed the same with the dictator, and agree with the dictators assessment and plan as written, documented as a scribe. Based on total visit time, I have performed more than 50% of this visit. Objective - Vital Signs Vital signs: Vital Signs Temp 98.3 F 12/28/22 01:14 Pulse 84 12/28/22 01:14 Resp 14 12/28/22 01:14 BP 150/67 12/28/22 01:14 Pulse Ox 94 L 12/28/22 01:14 FiO2 Intake & Output 12/27/22 12/28/22 12/28/22 18:59 06:59 18:59 Intake Total 1020 Output Total 500 800 Balance -500 220 Intake: Intake, IV Titration 900 Amount Sodium Chloride 0.9% 1, 900 000 ml @ 75 mls/hr IV . [id number] [facility] Rx#:[id number] Oral 120 Output: Urine 500 800 Other: Voiding Method External Catheter - Labs CBC & Chem 7: 12/27/22 05:20 12/27/22 05:20 Labs: Abnormal Lab Results - Last 24 Hours (Table) 12/27/22 12/28/22 Range/Units 05:20 00:21 BUN/Creatinine Ratio 25.71 H (12.00-20.00) Ratio Glucose 149 H (70-110) mg/dL POC Glucose (mg/dL) 133 H (70-110) mg/dL Assessment and Plan Time with Patient: Less than 30
[2022-12-28] MEDS: RIVAROXABAN 15 MG TAB PO SCH (20:10)
[2022-12-28] MEDS: PRAVASTATIN SODIUM 80 MG TAB PO SCH (20:10)
[2022-12-28] MEDS: SENNOSIDES-DOCUSATE SODIUM 1 EACH TAB PO SCH (20:10)
[2022-12-29] MEDS: SODIUM CHLORIDE 0.9% 1,000 ML IV SCH (06:23)
[2022-12-29] MEDS: LEVOTHYROXINE 125 MCG TAB PO SCH (06:24)
[2022-12-29] MEDS: lisinopriL 5 MG TAB PO SCH (09:47)
[2022-12-29] MEDS: amLODIPine 10 MG TAB PO SCH (09:47)
[2022-12-29] MEDS: MULTIVITAMINS, THERA 1 EACH TAB PO SCH (09:47)
[2022-12-29] MEDS: PANTOPRAZOLE 40 MG TABLET PO SCH ×2 (09:47→21:05)
[2022-12-29] MEDS: LORATADINE 10 MG TAB PO SCH (09:47)
[2022-12-29] MEDS: FERROUS SULFATE 325 MG TAB PO SCH (09:47)
[2022-12-29] MEDS: CYANOCOBALAMIN 500 MCG TAB PO SCH (09:47)
[2022-12-29] MEDS: DONEPEZIL 10 MG TAB PO SCH (09:47)
[2022-12-29] MEDS: MEMANTINE 10 MG TAB PO SCH ×2 (09:47→21:05)
[2022-12-29] MEDS: VORTIOXETINE HYDROBROMIDE 20 MG TABLET PO SCH (09:48)
--- NOTE | 2022-12-29 09:54 | P.PN ---
Subjective Progress Note Date: 12/29/22 This patient is an 82- year old female with a past medical history of atrial fibrillation, diabetes, dementia that is admitted under the care of internal medicine for UTI and inability to ambulate. Patient was recently discharged on 12/24/22 after admission for UTI with sepsis. Patient was brought back to the emergency department on 12/26/22 by her son due to left knee pain and inability to ambulate. The patient was admitted under the care of internal medicine with a consult placed to orthopedic surgery for evaluation of her left knee. 12/29/22: Patient is examined bedside this morning with Dr. Kenney. Patient's left knee was aspirated and fluid was sent to the lab yesterday. Nucleated cells 1100/uL. Synovial crystals are still pending. Patient continues to complain of left knee pain this morning. Objective - Vital Signs Vital signs: Vital Signs Temp 98.3 F 12/29/22 07:28 Pulse 91 12/29/22 07:28 Resp 21 12/29/22 07:28 BP 170/72 12/29/22 07:28 Pulse Ox 95 12/29/22 07:28 FiO2 Intake & Output 12/28/22 12/29/22 12/29/22 18:59 06:59 18:59 Output Total 500 600 Balance -500 -600 Output: Urine 500 600 - Exam On examination, patient is lying in bed in no apparent distress. She is alert and answers questions appropriately, although is confused. Focused examination of the left knee is conducted. On inspection of the left knee, there is a large knee effusion. There is no overlying erythema, warmth. No ecchymosis or abrasions. No signs of trauma. There is severe, diffuse pain on palpation of the knee. Patient does not tolerate passive range of motion of the knee at this time. Motor and sensory function is intact of the left lower extremity. Left lower extremity is warm and well-perfused. Calf is soft and nontender. - Labs CBC & Chem 7: 12/27/22 05:20 12/27/22 05:20 Labs: Abnormal Lab Results - Last 24 Hours (Table) 12/27/22 Range/Units 05:20 Amylase 161 H (23-121) U/L Assessment and Plan Assessment: Left knee pain Left knee effusion Left knee arthritis Possible acute gout flare Plan: - Synovial fluid analysis from aspiration performed of the left knee yesterday showing nucleated cells 1100/uL. Low concern for infection. Her knee pain and effusion could be related to an acute gout flare, although we are still waiting for crystals to result. We discussed with the patient we could perform a cortisone injection into the left knee if crystals are positive. We will continue to await full results of the synovial fluid analysis.
[2022-12-29 11:18] LABS: Blood Urea Nitrogen 10.8 mg/dL (9.0-27.0); Calcium 9.4 mg/dL (8.7-10.3); Carbon Dioxide 26.7 mmol/L (21.6-31.8); Chloride 107 mmol/L (96-109); Glucose 122 mg/dL (70-110); Potassium 3.2 mmol/L (3.5-5.5); Sodium 142 mmol/L (135-145)
[2022-12-29] MEDS ORDERED: Potassium Replacement Protocol 1 EACH MISC MISCELLANE PRN (13:12)
[2022-12-29] MEDS ORDERED: HYDROcodone/APAP 5-325MG 1 EACH TAB PO PRN (13:12)
[2022-12-29] MEDS: POTASSIUM CHLORIDE ER 20 MEQ TAB.ER PO SCH ×3 (14:41→16:36)
[2022-12-29 16:16] LABS: Synovial Fld Crystals None Seen
--- NOTE | 2022-12-29 20:59 | P.CONS ---
History of Present Illness - Reason for Consult Consult date: 12/29/22 - History of Present Illness Patient is a 82-year-old female with a past medical insignificant for diabetes mellitus hypertension hyperlipidemia memory impairment atrial fibrillation presenting to the hospital 3 days ago for evaluation of left knee pain and inability to ambulate patient denies any history of any trauma or any fall has been complaining of pain to the left knee to being sharp in nature severe in intensity without any radiation, patient denies having any redness open wound or any drainage, patient on presentation to the hospital was afebrile and no fever has been recorded subsequently patient did have mild elevated heart rate of 11 point 6 repeat vitals normal patient did have a normal creatinine lab exams are normal urine was mildly positive patient did have aspirate of the left knee cloudy fluid 1500 WBC only 1100 nucleated cells and no crystals seen cultures obtained currently pending infectious disease was consulted today for the left knee and need for antibiotic therapy, patient did have x-ray of the knee on admission large joint effusion moderate degenerative changes patient al so have CT of abdominal pelvis no suspicious interval change Past Medical History Past Medical History: Atrial Fibrillation, COPD, Dementia, Diabetes Mellitus, GERD/Reflux, Hyperlipidemia, Hypertension, Memory Impairment, Osteoarthritis (OA), Pneumonia, Thyroid Disorder Additional Past Medical History / Comment(s): Right hip wound [id number], diet controlled diabetes, osteoporosis, incontinue Last Myocardial Infarction Date:: 2017 History of Any Multi-Drug Resistant Organisms: None Reported, MRSA, Other MDRO, VRE Year Discovered:: 06/05/22 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 Past Anesthesia/Blood Transfusion Reactions: No Reported Reaction Date of Last Stent Placement:: 2017 Smoking Status: Former smoker - Past Family History Daughter(s) Family Medical History: Cancer Father History Unknown: Yes Additional Family Medical History / Comment(s): BRAIN TUMOR Mother Family Medical History: Cancer Medications and Allergies Home Medications Medication Instructions Recorded Confirmed Type Levothyroxine Sodium [Synthroid] 150 mcg PO SUTUWETHSA 09/30/13 12/26/22 History Pravastatin Sodium [Pravachol] 80 mg PO HS 11/07/14 12/26/22 History Multivitamins, Thera [Multivitamin 1 tab PO DAILY 06/01/18 12/26/22 History (formulary)] Sotalol [Betapace] 80 mg PO BID 06/01/18 12/26/22 History Ferrous Sulfate [Iron (65 MG 325 mg PO DAILY 06/16/18 12/26/22 History Elemental)] Losartan/Hydrochlorothiazide 1 tab PO DAILY 08/18/18 12/26/22 History [Losartan-Hctz 100-25 mg Tab] Donepezil [Aricept] 10 mg PO DAILY 06/22/21 12/26/22 History Memantine [Namenda] 10 mg PO BID 06/22/21 12/26/22 History Mirabegron [Myrbetriq] 50 mg PO DAILY 06/22/21 12/26/22 History Sennosides-Docusate Sodium 1 tab PO HS 06/22/21 12/26/22 History [Senokot-S] Cyanocobalamin [Vitamin B-12] 500 mcg PO DAILY 07/16/21 12/26/22 History Rivaroxaban [Xarelto] 15 mg PO HS 07/16/21 12/26/22 History Pantoprazole [Protonix] 40 mg PO BID 02/23/22 12/26/22 History Acetaminophen [Tylenol Extra 500 mg PO Q8HR PRN #30 tablet 02/24/22 12/26/22 Rx Strength] Levothyroxine Sodium [Synthroid] 125 mcg PO MOFR 06/05/22 12/26/22 History Loratadine [Claritin] 10 mg PO DAILY 06/05/22 12/26/22 History Nitroglycerin Sl Tabs [Nitrostat] 0.4 mg SL Q5M PRN 06/05/22 12/26/22 History Vortioxetine Hydrobromide 20 mg PO DAILY 06/05/22 12/26/22 History [Trintellix] amLODIPine [Norvasc] 10 mg PO DAILY 30 Days #30 tab 06/09/22 12/26/22 Rx Loperamide [Imodium] 2 mg PO QID PRN cap 08/08/22 12/26/22 Rx Methenamine Hippurate 1 gm PO BID 12/24/22 12/26/22 History cefUROXime axetiL [Ceftin] 500 mg PO BID 5 Days #10 tab 12/25/22 12/26/22 Rx Allergies Allergy/AdvReac Type Severity Reaction Status Date / Time azithromycin Allergy Rash/Hives Verified 12/26/22 20:19 [From Zithromax Z-Chau] codeine Allergy Unknown Verified 12/26/22 20:19 hydrochlorothiazide Allergy Unknown Verified 12/26/22 20:19 [From Dyazide] lincomycin HCl Allergy Unknown Verified 12/26/22 20:19 [From Lincocin] meperidine HCl [From Demerol] Allergy Unknown Verified 12/26/22 20:19 metronidazole [From Flagyl] Allergy Unknown Verified 12/26/22 20:19 Metronidazole HCl Allergy Unknown Verified 12/26/22 20:19 [From Flagyl] nitrofurantoin Allergy Confusion Verified 12/26/22 20:19 [From Macrobid] Penicillins Allergy Unknown Verified 12/26/22 20:19 Childhood Ibubvsy-[id number] Reductase Allergy Unknown Verified 12/26/22 20:19 Inhibitor Sulfa (Sulfonamide Allergy Unknown Verified 12/26/22 20:19 Antibiotics) tetracycline [Tetracycline] Allergy Unknown Verified 12/26/22 20:19 triamterene [From Dyazide] Allergy Unknown Verified 12/26/22 20:19 watermelon Allergy Swelling Verified 12/26/22 20:19 atorvastatin calcium AdvReac MUSCLE Verified 12/26/22 20:19 [From Lipitor] ACHES rosuvastatin calcium AdvReac MUSCLE Verified 12/26/22 20:19 [From Crestor] ACHES Physical Exam Vitals: Vital Signs Temp Pulse Resp BP BP Pulse Ox 12/29/22 15:03 98.1 F 81 21 161/63 95 12/29/22 07:28 98.3 F 91 21 170/72 95 12/29/22 01:09 98.5 F 81 16 147/62 93 L 12/28/22 19:08 98.6 F 89 14 156/70 93 L Intake and Output 12/29/22 12/29/22 12/29/22 06:59 14:59 22:59 Intake Total 118 Output Total 600 Balance -600 118 Intake: Oral 118 Output: Urine 600 Other: Voiding Method Incontinent Results CBC & Chem 7: 12/27/22 05:20 12/29/22 06:23 Labs: Abnormal Lab Results - Last 24 Hours (Table) 12/27/22 12/29/22 Range/Units 05:20 06:23 Potassium 3.2 L (3.5-5.5) mmol/L Glucose 122 H (70-110) mg/dL Amylase 161 H (23-121) U/L Microbiology - Last 24 Hours (Table) 12/28/22 10:15 Gram Stain - Preliminary Knee - Left Assessment and Plan Plan: 1patient present to hospital with left knee pain patient was noticed to have a large effusion on the x-ray of the knee and the patient is status post aspirate of the left knee effusion however shows only 1100 nucleated cells is more likely due to underlying severe osteoarthritis clinically not behaving as septic arthritis and crystals were negative 2-no need for any systemic antibiotic therapy at this point 3-continue with pain management for admitting team We will follow on clinical condition and cultures to further adjust medication if needed Thank you for this consultation we will follow the patient along with you Dictation was produced using i-drive dictation software. please excuse any grammatical, word or spelling errors. Time with Patient: Greater than 30
[2022-12-29] MEDS: SENNOSIDES-DOCUSATE SODIUM 1 EACH TAB PO SCH (21:05)
[2022-12-29] MEDS: RIVAROXABAN 15 MG TAB PO SCH (21:05)
[2022-12-29] MEDS: PRAVASTATIN SODIUM 80 MG TAB PO SCH (21:06)
[2022-12-30] MEDS: ACETAMINOPHEN TAB 325 MG TAB PO PRN (00:40)
[2022-12-30] MEDS: SODIUM CHLORIDE 0.9% 1,000 ML IV SCH (05:22)
[2022-12-30] MEDS: LEVOTHYROXINE 75 MCG TAB PO SCH (06:01)
--- NOTE | 2022-12-30 07:56 | PN ---
PROGRESS NOTE DATE OF SERVICE: 12/29/2022 SUBJECTIVE: This is an 82-year-old woman with a past medical history of multiple medical problems, admitted with left knee pain and effusion. The patient had knee aspiration, and the fluid was cloudy with some nucleated cells. Cultures are pending at this time. The white count is elevated. Uric acid is pending. PAST MEDICAL HISTORY: Reviewed. REVIEW OF SYSTEMS: Fourteen-point review is negative as mentioned. CURRENT MEDICATIONS: Reviewed and include Norvasc. Dose and rest of medications are noted. PHYSICAL EXAMINATION: VITAL SIGNS: Pulse is 91, blood pressure 117/70, and respirations 21. HEENT: Conjunctivae are normal. NECK: No jugular venous distention. CARDIOVASCULAR: S1 and S2. RESPIRATIONS: Breath sounds diminished at the bases. ABDOMEN: Soft. LEGS: Status post left knee LABORATORIES: Reviewed. ASSESSMENT: 1. Left knee pain and left knee effusion, status post aspiration, rule out reactive or gout or infected arthritis. 2. Mild acute renal injury. 3. Atrial fibrillation. 4. Gait dysfunction. 5. Chronic obstructive pulmonary disease. 6. Coronary artery disease, stenting. 7. Hypokalemia. RECOMMENDATIONS AND DISCUSSION: This is an 82-year-old woman, presented with multiple complex medical issues. We will monitor the patient closely. Recommend to continue current management. Recommend to check uric acid. Infectious Disease evaluation. Symptomatic treatment of the pain. See orders for details. Prognosis is guarded. Further recommendations to follow. PT and OT evaluation, possibly eventually ECF rehab. NORM / SARAHN: [id number] / DARA
[2022-12-30] MEDS: MULTIVITAMINS, THERA 1 EACH TAB PO SCH (09:20)
[2022-12-30] MEDS: VORTIOXETINE HYDROBROMIDE 20 MG TABLET PO SCH (09:20)
[2022-12-30] MEDS: DONEPEZIL 10 MG TAB PO SCH (09:21)
[2022-12-30] MEDS: PANTOPRAZOLE 40 MG TABLET PO SCH (09:21)
[2022-12-30] MEDS: CYANOCOBALAMIN 500 MCG TAB PO SCH (09:21)
[2022-12-30] MEDS: amLODIPine 10 MG TAB PO SCH (09:21)
[2022-12-30] MEDS: lisinopriL 5 MG TAB PO SCH (09:21)
[2022-12-30] MEDS: LORATADINE 10 MG TAB PO SCH (09:21)
[2022-12-30] MEDS: MEMANTINE 10 MG TAB PO SCH (09:21)
[2022-12-30] MEDS: FERROUS SULFATE 325 MG TAB PO SCH (09:21)
[2022-12-30] MEDS ORDERED: LIDOCAINE 2% INJ 20 MG/ML (20 ML MDV) MISCELLANE ONE (09:22)
[2022-12-30] MEDS ORDERED: methylPREDNISolone ACETATE 40 MG/ML 1 ML VIAL INTRAARTIC STA (09:22)
--- NOTE | 2022-12-30 10:41 | P.PN ---
Subjective Progress Note Date: 12/30/22 This patient is an 82- year old female with a past medical history of atrial fibrillation, diabetes, dementia that is admitted under the care of internal medicine for UTI and inability to ambulate. Patient was recently discharged on 12/24/22 after admission for UTI with sepsis. Patient was brought back to the emergency department on 12/26/22 by her son due to left knee pain and inability to ambulate. The patient was admitted under the care of internal medicine with a consult placed to orthopedic surgery for evaluation of her left knee. 12/30/22: Patient is examined bedside this morning with Dr. Kenney. Patient is up to the bedside chair. She continues to complain of left knee pain. Synovial fluid from aspiration performed on 12/28/22 show nucleated cells 1100/uL. No synovial crystals seen. Patient is ok with a cortisone injection into the left knee today. No new complaints. Objective - Vital Signs Vital signs: Vital Signs Temp 98.2 F 12/30/22 08:00 Pulse 74 12/30/22 08:00 Resp 20 12/30/22 10:19 BP 172/75 12/30/22 08:00 Pulse Ox 95 12/30/22 08:00 FiO2 Intake & Output 12/29/22 12/30/22 12/30/22 18:59 06:59 18:59 Intake Total 718 120 Output Total 900 200 Balance -182 -200 120 Intake: Intake, IV Titration 600 Amount Sodium Chloride 0.9% 1, 600 000 ml @ 50 mls/hr IV . Q20H [facility] Rx#:[id number] Oral 118 120 Output: Urine 900 200 Other: Voiding Method Incontinent Incontinent Incontinent External Catheter External Catheter - Exam On examination, patient is sitting up in the bedside chair in no apparent distress. She is alert and answers questions appropriately, although is co nfused. Focused examination of the left knee is conducted. On inspection of the left knee, there is a large knee effusion. There is no overlying erythema, warmth. No ecchymosis or abrasions. No signs of trauma. There is severe, diffuse pain on palpation of the knee. Patient does not tolerate passive range of motion of the knee at this time. Motor and sensory function is intact of the left lower extremity. Left lower extremity is warm and well-perfused. Calf is soft and nontender. - Labs CBC & Chem 7: 12/27/22 05:20 12/29/22 06:23 Labs: Abnormal Lab Results - Last 24 Hours (Table) 12/29/22 Range/Units 06:23 Potassium 3.2 L (3.5-5.5) mmol/L Glucose 122 H (70-110) mg/dL Microbiology - Last 24 Hours (Table) 12/28/22 10:15 Gram Stain - Preliminary Knee - Left Body Fluid Culture - Preliminary Assessment and Plan Assessment: Left knee pain Left knee effusion Left knee arthritis Plan: - Synovial fluid analysis from aspiration performed of the left knee 12/28/22 showing nucleated cells 1100/uL, synovial crystals not present. There is very low concern for septic arthritis at this time. Her knee effusion is most likely secondary to an acute flare of severe osteoarthritis. Recommend proceeding with a cortisone injection into the left knee today for her continued symptoms. Patient is agreeable to this plan. Procedure: The skin over the superior lateral knee is prepped with ChloraPrep a nd alcohol. An 18-gauge needle was inserted into the suprapatellar pouch and about 2 mL's of clear yellow fluid was aspirated from the knee. No purulence noted. 2 mL's of lidocaine and 1 mL of Depo-Medrol was then injected into the knee. The needle was withdrawn and a Band-Aid was applied. The patient tolerated this well.
--- NOTE | 2022-12-30 12:55 | P.DS ---
Providers Date of admission: 12/26/22 19:56 Expected date of discharge: 12/30/22 Attending physician: Anu Bernstein Consults: 12/28/22 09:24 Consult Physician Routine Consulting Provider: eLnard Kenney Consult Reason/Comments: left knee joint effusion pain and limited mobility Do you want consulting provider notified?: Yes 12/29/22 15:05 Consult Physician Routine Consulting Provider: Cindy Bella Consult Reason/Comments: LEFT KNEE EFFUSION Do you want consulting provider notified?: Yes Primary care physician: Maryann Mckeon Hospital Course: Final diagnosis Left knee pain and left knee effusion, status post aspiration, ruled out gout/infected arthritis Mild acute renal injury Atrial fibrillation history History of dementia GERD History of depression Gait dysfunction with generalized weakness Chronic obstructive pulmonary disease history, not an exacerbation History of coronary artery disease with stenting Hypokalemia GI prophylaxis DVT prophylaxis No code Discharge disposition Patient is being discharged in a stable condition with guarded prognosis to [facility]. Patient will follow-up with Dr. Mckeon in the outpatient setting upon discharge. Patient is to follow-up with orthopedics outpatient as needed. Total time taken is greater than 35 minutes. Hospital course This is a 82-year-old female who was recently admitted with increased weakness and pain generalized pain noted throughout and was recently hospitalized and discharged as patient and family refused rehab. Patient came back one day later with continued weakness and difficulty with ambulation and left knee pain. Patient was seen and evaluated by orthopedics and aspirated any effusion initially with concerns of possible gout although ruled out. Patient received a steroid injection in the left knee and is continued on [place] for pain. Patient with significant weakness was evaluated by physical therapy recommending rehab and family is agreeable. Patient has been accepted at [facility] and will be discharged today. Please refer to other consultation notes for further HPI. Currently no reports of chest pain, shortness of breath, or palpitations. Patient is afebrile. No reports of nausea or vomiting and patient is tolerating diet. Patient will be going to [facility] today. Guarded prognosis and high risk for readmission given patient's significant comorbidities. Physical exam: Gen: This is a 82-year-old female who is awake, alert and oriented 1-2, confused at times, baseline, well-developed, well-nourished, obese HEENT: Head is atraumatic, normocephalic. Pupils equal, round. Sclerae is anicteric. NECK: Supple. No JVD. No lymphadenopathy. No thyromegaly. LUNGS: Diminished breath sounds bilaterally with no wheezes or rhonchi. No intercostal retractions. HEART: S1, S2 are muffled ABDOMEN: Soft. Obese. Bowel sounds are present. No masses. No tenderness. EXTREMITIES: No pedal edema. No calf tenderness. Left knee swelling slightly i mproved with recent cortisone injection with Band-Aid noted and dry NEUROLOGICAL: Patient is awake, alert and oriented x3. Cranial nerves 2 through 12 are grossly intact. Please refer to medication reconciliation sheet for a list of medications. The impression and plan of care has been dictated by Sabine Burch, Nurse Practitioner as directed. Dr. Clement MD I have performed a history and examination and MDM of this patient, discussed the same with the dictator, and agree with the dictator's assessment and plan as written ,documented as a scribe. Based on total visit time, I have performed more than 50% of the visit. Patient Condition at Discharge: Good Plan - Discharge Summary Discharge Rx Participant: No New Discharge Prescriptions: New HYDROcodone/APAP 5-325MG [[place] 5-325] 0.5 each PO Q8H PRN #4 tab PRN Reason: Pain lisinopriL [Zestril] 5 mg PO DAILY tab Continue Levothyroxine Sodium [Synthroid] 150 mcg PO SUTUWETHSA Pravastatin Sodium [Pravachol] 80 mg PO HS Multivitamins, Thera [Multivitamin (formulary)] 1 tab PO DAILY Ferrous Sulfate [Iron (65 MG Elemental)] 325 mg PO DAILY Donepezil [Aricept] 10 mg PO DAILY Memantine [Namenda] 10 mg PO BID Mirabegron [Myrbetriq] 50 mg PO DAILY Rivaroxaban [Xarelto] 15 mg PO HS Pantoprazole [Protonix] 40 mg PO BID Levothyroxine Sodium [Synthroid] 125 mcg PO MOFR Vortioxetine Hydrobromide [Trintellix] 20 mg PO DAILY Sennosides-Docusate Sodium [Senokot-S] 1 tab PO HS Cyanocobalamin [Vitamin B-12] 500 mcg PO DAILY Acetaminophen [Tylenol Extra Strength] 500 mg PO Q8HR PRN #30 tablet PRN Reason: Pain Loratadine [Claritin] 10 mg PO DAILY Nitroglycerin Sl Tabs [Nitrostat] 0.4 mg SL Q5M PRN PRN Reason: Chest Pain amLODIPine [Norvasc] 10 mg PO DAILY 30 Days #30 tab Loperamide [Imodium] 2 mg PO QID PRN cap PRN Reason: Diarrhea Methenamine Hippurate 1 gm PO BID Discontinued Sotalol [Betapace] 80 mg PO BID Losartan/Hydrochlorothiazide [Losartan-Hctz 100-25 mg Tab] 1 tab PO DAILY cefUROXime axetiL [Ceftin] 500 mg PO BID 5 Days #10 tab Discharge Medication List Levothyroxine Sodium [Synthroid] 150 mcg PO SUTUWETHSA 09/30/13 [History] Pravastatin Sodium [Pravachol] 80 mg PO HS 11/07/14 [History] Multivitamins, Thera [Multivitamin (formulary)] 1 tab PO DAILY 06/01/18 [History] Ferrous Sulfate [Iron (65 MG Elemental)] 325 mg PO DAILY 06/16/18 [History] Donepezil [Aricept] 10 mg PO DAILY 06/22/21 [History] Memantine [Namenda] 10 mg PO BID 06/22/21 [History] Mirabegron [Myrbetriq] 50 mg PO DAILY 06/22/21 [History] Sennosides-Docusate Sodium [Senokot-S] 1 tab PO HS 06/22/21 [History] Cyanocobalamin [Vitamin B-12] 500 mcg PO DAILY 07/16/21 [History] Rivaroxaban [Xarelto] 15 mg PO HS 07/16/21 [History] Pantoprazole [Protonix] 40 mg PO BID 02/23/22 [History] Acetaminophen [Tylenol Extra Strength] 500 mg PO Q8HR PRN #30 tablet 02/24/22 [Rx] Levothyroxine Sodium [Synthroid] 125 mcg PO MOFR 06/05/22 [History] Loratadine [Claritin] 10 mg PO DAILY 06/05/22 [History] Nitroglycerin Sl Tabs [Nitrostat] 0.4 mg SL Q5M PRN 06/05/22 [History] Vortioxetine Hydrobromide [Trintellix] 20 mg PO DAILY 06/05/22 [History] amLODIPine [Norvasc] 10 mg PO DAILY 30 Days #30 tab 06/09/22 [Rx] Loperamide [Imodium] 2 mg PO QID PRN cap 08/08/22 [Rx] Methenamine Hippurate 1 gm PO BID 12/24/22 [History] HYDROcodone/APAP 5-325MG [Sekiu 5-325] 0.5 each PO Q8H PRN #4 tab 12/30/22 [Rx] lisinopriL [Zestril] 5 mg PO DAILY tab 12/30/22 [Rx] Follow up Appointment(s)/Referral(s): Maryann Mckeon DO [Primary Care Provider] - 1-2 days Discharge Disposition: TRANSFER TO SNF/ECF
[2022-12-30 15:09] VITALS: BP 160/63; PULSE 87; RESP 16; TEMP 98.1
[2022-12-30 16:18] LABS: Basophils % (A) 0 %; Eosinophils # (A) 0.1 k/uL (0-0.7); Eosinophils % (A) 2 %; HGB 12.9 gm/dL (11.4-16.0); Lymphocytes # (A) 0.8 k/uL (1.0-4.8); Lymphocytes % (A) 12 %; MCH 30.9 pg (25.0-35.0); MCHC 33.1 g/dL (31.0-37.0); MCV 93.3 fL (80.0-100.0); Mean Platelet Volume 9.1; Monocytes # (A) 0.3 k/uL (0-1.0); Monocytes % (A) 4 %; Neutrophils # (A) 5.4 k/uL (1.3-7.7); Neutrophils % (A) 81 %; Platelet Count 219 k/uL (150-450); RBC 4.18 m/uL (3.80-5.40); WBC 6.6 k/uL (3.8-10.6)
[2022-12-30 17:02] LABS: ALT 14 U/L (4-34); AST 22 U/L (14-36); African American GFR (CKD) >90 (>60 ml/min/1.73 sqM); Albumin 2.9 g/dL (3.5-5.0); Albumin/Globulin Ratio 0.9; Alkaline Phosphatase 73 U/L (38-126); Anion Gap 4 mmol/L; Blood Urea Nitrogen 14 mg/dL (7-17); Calcium 9.5 mg/dL (8.4-10.2); Carbon Dioxide 23 mmol/L (22-30); Chloride 110 mmol/L (98-107); Globulin 3.2 g/dL; Glucose 169 mg/dL (74-99); Non-African American GFR(CKD) 88 (>60 ml/min/1.73 sqM); Potassium 4.5 mmol/L (3.5-5.1); Sodium 137 mmol/L (137-145); Total Bilirubin 0.4 mg/dL (0.2-1.3); Total Protein 6.1 g/dL (6.3-8.2)
== END 2022-12-30 16:38 | DRG 565 ==
LOC: EC 13:59 → 4SSUR 19:56
PROVIDERS: ADMIT Internal Medicine; ATTEND Internal Medicine
PROC: 0S9D3ZX Drainage of Left Knee Joint, Percutaneous Approach, Diagnostic (ICD-10-PCS; principal; 2022-12-28)
DX: M25.462 Effusion, left knee (principal); N17.9 Acute kidney failure, unspecified; N39.0 Urinary tract infection, site not specified; R26.2 Difficulty in walking, not elsewhere classified; K21.9 Gastro-esophageal reflux disease without esophagitis; E03.9 Hypothyroidism, unspecified; E11.9 Type 2 diabetes mellitus without complications; Z28.310 Unvaccinated for COVID-19; Z66 Do not resuscitate; I48.91 Unspecified atrial fibrillation; E87.6 Hypokalemia; I25.10 Atherosclerotic heart disease of native coronary artery without angina pectoris; Z95.5 Presence of coronary angioplasty implant and graft; Z96.641 Presence of right artificial hip joint; Z86.010 Personal history of colon polyps; Z79.01 Long term (current) use of anticoagulants; Z79.890 Hormone replacement therapy; Z79.899 Other long term (current) drug therapy; M81.0 Age-related osteoporosis without current pathological fracture; Z86.14 Personal history of Methicillin resistant Staphylococcus aureus infection; Z88.1 Allergy status to other antibiotic agents; Z88.5 Allergy status to narcotic agent; Z88.0 Allergy status to penicillin; Z88.2 Allergy status to sulfonamides; Z88.8 Allergy status to other drugs, medicaments and biological substances
CPT/HCPCS: 36415; 72100; 72170; 74176; 80048; 80053; 81001; 82150; 83690; 83735; 84550; 85025; 87070; 87205; 89050; 89060; 96374; 99285

== ENCOUNTER 2023-03-29 14:35 | Inpatient (IN) | payer BC, MEDICARE ==
[2023-03-29] MEDS ORDERED: SODIUM CHLORIDE 0.9% 1,000 ML IV STA (15:33)
[2023-03-29 16:22] LABS: Basophils # (A) 0.1 k/uL (0-0.2); Basophils % (A) 1 %; Eosinophils # (A) 0.2 k/uL (0-0.7); Eosinophils % (A) 2 %; HCT 44.6 % (34.0-46.0); HGB 15.1 gm/dL (11.4-16.0); Lymphocytes % (A) 13 %; MCH 31.1 pg (25.0-35.0); MCHC 33.7 g/dL (31.0-37.0); MCV 92.3 fL (80.0-100.0); Monocytes # (A) 0.5 k/uL (0-1.0); Monocytes % (A) 6 %; Neutrophils # (A) 5.8 k/uL (1.3-7.7); Neutrophils % (A) 77 %; Platelet Count 187 k/uL (150-450); RBC 4.84 m/uL (3.80-5.40); RDW 12.7 % (11.5-15.5); WBC 7.5 k/uL (3.8-10.6)
--- NOTE | 2023-03-29 16:28 | XR ---
EXAMINATION TYPE: XR chest 2V DATE OF EXAM: 03/29/2023 COMPARISON: 12/24/2022 HISTORY: Weakness TECHNIQUE: Frontal and lateral views of the chest are obtained. FINDINGS: There is no focal air space opacity, pleural effusion, or pneumothorax seen. Possibly mild cardiomegaly without overt CHF or pulmonary vascular congestion.. The osseous structures are intac t. IMPRESSION: No acute cardiopulmonary process. Mild cardiomegaly.
[2023-03-29 16:32] LABS: Partial Thromboplastin Time 28.7 sec (22.0-30.0); Prothrombin Time 11.2 sec (10.0-12.5)
[2023-03-29 16:40] LABS: ALT 13 U/L (4-34); AST 16 U/L (14-36); African American GFR (CKD) 83 (>60 ml/min/1.73 sqM); Albumin 3.8 g/dL (3.5-5.0); Alkaline Phosphatase 99 U/L (38-126); Anion Gap 7 mmol/L; Blood Urea Nitrogen 20 mg/dL (7-17); Calcium 10.1 mg/dL (8.4-10.2); Carbon Dioxide 27 mmol/L (22-30); Chloride 107 mmol/L (98-107); Glucose 136 mg/dL (74-99); Non-African American GFR(CKD) 72 (>60 ml/min/1.73 sqM); Potassium 3.5 mmol/L (3.5-5.1); Sodium 141 mmol/L (137-145); Total Bilirubin 0.6 mg/dL (0.2-1.3)
--- NOTE | 2023-03-29 16:47 | CT ---
EXAMINATION TYPE: CT brain wo con DATE OF EXAM: 03/29/2023 COMPARISON: 12/08/2022 HISTORY: AMS, Weakness CT DLP: 1083.4 mGycm Automated exposure control for dose reduction was used. FINDINGS: The ventricles, basal cisterns and sulci over convexities are markedly enlarged consistent with marke d generalized atrophy. There is no mass effect or shift of the midline structures. There is mild patchy decreased density in the periventricular white matter consistent with chronic is chemic white matter demyelination. There is no acute intra or extra-axial hemorrhage. The posterior fossa including the brainstem, fourth ventricle and cerebellar pontine angles appear no rmal. Intraorbital contents appear normal and symmetric. Visualized paranasal sinuses and mastoid air cells are well aerated. IMPRESSION: 1. No acute bleed or mass effect. 2. Senescent changes as described above. 3. No significant interval change. IMPRESSION:
[2023-03-29] MEDS ORDERED: NALOXONE 0.4 MG/ML 1 ML VIAL IV PRN (19:00)
[2023-03-29] MEDS ORDERED: MORPHINE SULFATE 4 MG/ML SYRINGE IV PRN (19:00)
[2023-03-29 19:17] LABS: Appearance,Urine Cloudy (Clear); Bacteria,Urine Few /hpf; Bilirubin,Urine Negative (Negative); Blood,Urine Small (Negative); Calcium Oxalate Crystals,Urine Occasional /hpf; Color,Urine Light Yellow; Glucose,Urine (UA) Negative (Negative); Hyaline Casts,Urine 1 /lpf (0-2); Ketones,Urine Negative (Negative); Leukocyte Esterase,Urine Large (Negative); Mucus,Urine Few /hpf; Nitrite,Urine Negative (Negative); PH, Urine 5.5 (5.0-8.0); Protein,Urine Trace (Negative); RBC,Urine 20 /hpf (0-5); Squamous Epithelial Cell,Urine 1 /hpf (0-4); Urobilinogen,Urine <2.0 mg/dL (<2.0); WBC,Urine 86 /hpf (0-5)
--- NOTE | 2023-03-29 19:23 | ED ---
General Adult HPI - General Chief complaint: Weakness Stated complaint: Weakness Time Seen by Provider: 03/29/23 14:57 Source: patient, RN notes reviewed, old records reviewed Mode of arrival: ambulatory Limitations: no limitations - History of Present Illness Initial comments: Patient is an 83-year-old female who presents from his Department complaining of weakness. He has a history of dementia. His history of A. fib, COPD, diabetes, hypertension. Presents with family members. She is more weak than normal. Usually ambulates with walker. Baseline alert and oriented times one which she is at this time. She is not feeling well. Complaining of generalized body pain however cannot localize it anywhere. Denies any chest pain, shortness of breath currently. Endorses some suprapubic abdominal pain. Has a history of UTIs. Presents for further evaluation of this time with family. Overall patient is a poor historians. - Related Data Home Medications Medication Instructions Recorded Confirmed Levothyroxine Sodium [Synthroid] 150 mcg PO SUTUWETHSA 09/30/13 03/29/23 Pravastatin Sodium [Pravachol] 80 mg PO HS 11/07/14 03/29/23 Multivitamins, Thera [Multivitamin 1 tab PO DAILY 06/01/18 03/29/23 (formulary)] Ferrous Sulfate [Iron (65 MG 325 mg PO DAILY 06/16/18 03/29/23 Elemental)] Donepezil [Aricept] 10 mg PO DAILY 06/22/21 03/29/23 Memantine [Namenda] 10 mg PO BID 06/22/21 03/29/23 Mirabegron [Myrbetriq] 50 mg PO DAILY 06/22/21 03/29/23 Sennosides-Docusate Sodium 1 tab PO HS 06/22/21 03/29/23 [Senokot-S] Cyanocobalamin [Vitamin B-12] 500 mcg PO DAILY 07/16/21 03/29/23 Rivaroxaban [Xarelto] 15 mg PO HS 07/16/21 03/29/23 Pantoprazole [Protonix] 40 mg PO BID 02/23/22 03/29/23 Levothyroxine Sodium [Synthroid] 125 mcg PO MOFR 06/05/22 03/29/23 Loratadine [Claritin] 10 mg PO DAILY 06/05/22 03/29/23 Nitroglycerin Sl Tabs [Nitrostat] 0.4 mg SL Q5M PRN 06/05/22 03/29/23 Vortioxetine Hydrobromide 20 mg PO DAILY 06/05/22 03/29/23 [Trintellix] Methenamine Hippurate 1 gm PO BID 12/24/22 03/29/23 Brexpiprazole [Rexulti] 2 mg PO HS 03/29/23 03/29/23 Previous Rx's Medication Instructions Recorded amLODIPine [Norvasc] 10 mg PO DAILY 30 Days #30 tab 06/09/22 lisinopriL [Zestril] 5 mg PO DAILY tab 12/30/22 Allergies Allergy/AdvReac Type Severity Reaction Status Date / Time azithromycin Allergy Rash/Hives Verified 03/29/23 16:09 [From Zithromax Z-Chau] codeine Allergy Unknown Verified 03/29/23 16:09 hydrochlorothiazide Allergy Unknown Verified 03/29/23 16:09 [From Dyazide] lincomycin HCl Allergy Unknown Verified 03/29/23 16:09 [From Lincocin] meperidine HCl [From Demerol] Allergy Unknown Verified 03/29/23 16:09 metronidazole [From Flagyl] Allergy Unknown Verified 03/29/23 16:09 Metronidazole HCl Allergy Unknown Verified 03/29/23 16:09 [From Flagyl] nitrofurantoin Allergy Confusion Verified 03/29/23 16:09 [From Macrobid] Penicillins Allergy Unknown Verified 03/29/23 16:09 Childhood Hibugsn-THD-CfJ Reductase Allergy Unknown Verified 03/29/23 16:09 Inhibitor Sulfa (Sulfonamide Allergy Unknown Verified 03/29/23 16:09 Antibiotics) tetracycline [Tetracycline] Allergy Unknown Verified 03/29/23 16:09 triamterene [From Dyazide] Allergy Unknown Verified 03/29/23 16:09 watermelon Allergy Swelling Verified 03/29/23 16:09 atorvastatin calcium AdvReac MUSCLE Verified 03/29/23 16:09 [From Lipitor] ACHES rosuvastatin calcium AdvReac MUSCLE Verified 03/29/23 16:09 [From Crestor] ACHES Review of Systems ROS Statement: Those systems with pertinent positive or pertinent negative responses have been documented in the HPI. Review of Systems: CONST: Denies fever EYES: Denies blurry vision ENT: Denies nasal congestion C/V: Denies Chest pain RESP: Denies shortness of breath GI: Denies abdominal pain : Denies dysuria SKIN: Denies rash. MSK: Denies joint pain. NEURO: Denies headache ROS Other: All systems not noted in ROS Statement are negative. 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 Past Anesthesia/Blood Transfusion Reactions: No Reported Reaction Date of Last Stent Placement:: 2017 Past Psychological History: Unable to Obtain, Depression Smoking Status: Former smoker Past Alcohol Use History: None Reported Past Drug Use History: None Reported - Past Family History Daughter(s) Family Medical History: Cancer Father History Unknown: Yes Additional Family Medical History / Comment(s): BRAIN TUMOR Mother Family Medical History: Cancer General Exam - General Exam Comments Initial Comments: General: Appears in no acute distress. HEAD: Normal with no signs of head trauma. EYES: PERRLA, EOMI, conjunctiva normal, no discharge. ENT: Hearing grossly intact, normal oropharynx. RESPIRATORY: Clear breath sounds bilaterally. No wheezes, rales, or rhonchi. C/V: Regular rate and rhythm. S1 and S2 auscultated, no edema, peripheral puls es 2+ and intact throughout ABD: Abd is soft, nontender, nondistended. No focal tenderness. EXT: Normal range of motion, no obvious deformity SKIN: No rashes or lesions observed on exposed skin. NEURO: Alert and oriented 1 which is patient's baseline. No obvious focal sensory strength deficits. Limitations: no limitations Course Vital Signs 03/29/23 03/29/23 03/29/23 14:37 14:52 14:56 Temperature 98.8 F 99.5 F Pulse Rate 78 80 Respiratory 20 16 13 Rate Blood Pressure 154/77 152/70 O2 Sat by Pulse 98 96 Oximetry 03/29/23 03/29/23 03/29/23 15:00 15:30 16:00 Temperature Pulse Rate 84 73 77 Respiratory 13 20 20 Rate Blood Pressure 154/67 152/70 139/58 O2 Sat by Pulse 97 Oximetry 03/29/23 03/29/23 03/29/23 16:30 17:00 17:30 Temperature Pulse Rate 82 80 Respiratory 16 20 Rate Blood Pressure 147/57 157/60 O2 Sat by Pulse 97 Oximetry 03/29/23 03/29/23 03/29/23 18:00 18:30 19:00 Temperature Pulse Rate 77 92 93 Respiratory 21 20 7 L Rate Blood Pressure 170/62 153/62 148/73 O2 Sat by Pulse Oximetry 03/29/23 03/29/23 03/29/23 19:30 20:00 20:12 Temperature 98.9 F Pulse Rate 92 Respiratory 7 L 19 Rate Blood Pressure 158/86 O2 Sat by Pulse Oximetry Medical Decision Making - Medical Decision Making Was pt. sent in by a medical professional or institution (HAROON Contreras, GEOPHYSICAL LABORATORY DIRECTOR, urgent care, hospital, or residential...) When possible be specific @ -No Did you speak to anyone other than the patient for history (EMS, parent, family, police, friend...)? What history was obtained from this source @ -Patient's family is the primary historian for the patient due to her dementia. Did you review nursing and triage notes (agree or disagree)? Why? @ -I reviewed and agree with nursing and triage notes Were old charts reviewed (outside hosp., previous admission, EMS record, old EKG, old radiological studies, urgent care reports/EKG's, residential records)? Report findings @ -Old charts reviewed. Differential Diagnosis (chest pain, altered mental status, abdominal pain women, abdominal pain men, vaginal bleeding, weakness, fever, dyspnea, syncope, headache, dizziness, GI bleed, back pain, seizure, CVA, palpatations, mental health, musculoskeletal)? @ -Differential Weakness: Hypoglycemia, shock, sepsis, hyponatremia, anemia, infection, [place], ETOH, adverse medicine reaction, overdose, stroke, this is not meant to be an all-inclusive list. EKG interpreted by me (3pts min.). @ -As above X-rays interpreted by me (1pt min.). @ -Chest x-ray reveals no evidence of acute cardio pulmonary process. CT interpreted by me (1pt min.). @ -Brain CT reveals no evidence of acute intracranial process. U/S interpreted by me (1pt. min.). @ -None done What testing was considered but not performed or refused? (CT, X-rays, U/S, labs)? Why? @ -None What meds were considered but not given or refused? Why? @ -None Did you discuss the management of the patient with other professionals (professionals i.e. , PA, GEOPHYSICAL LABORATORY DIRECTOR, lab, RT, psych nurse, social security assessor, poiser balance, teacher, customs and border protection officer, outpatient case manager)? Give summary @ -Discussed with admitting physician, Dr. Partida who accepted the patient. Was smoking cessation discussed for >3mins.? @ -No Was critical care preformed (if so, how long)? @ -No Were there social determinants of health that impacted care today? How? (Homelessness, low income, unemployed, alcoholism, drug addiction, transportation, low edu. Level, literacy, decrease access to med. care, usp, rehab)? @ -No Was there de-escalation of care discussed even if they declined (Discuss DNR or withdrawal of care, Hospice)? DNR status @ -No What co-morbidities impacted this encounter? (DM, HTN, Smoking, COPD, CAD, Cancer, CVA, ARF, Chemo, Hep., AIDS, mental health diagnosis, sleep apnea, morbid obesity)? @ -None Was patient admitted / discharged? Hospital course, mention meds given and route, prescriptions, significant lab abnormalities, going to OR and other pertinent info. @ -Based on the The patient's presentation and physical exam, presents with weakness. Overall poor historians but has a history of UTIs. Patient had a normal baseline mental status. Vitals within acceptable limits. We will obtain broad workup. Patient and patient's family in agreement this plan. Patient is started on 1 L fluid bolus. Imaging unremarkable. EKG within acceptable limits. Patient's labs reveal a UTI. Remainder the labs within acceptable limits. Up to the patient's family. Patient be admitted to the hospital for weakness and UTI. They were in agreement this plan. Patient started on Rocephin. Urine culture sent. I spoke with the admitting team, Dr. partida who accepted the patient. Undiagnosed new problem with uncertain prognosis? @ -No Drug Therapy requiring intensive monitoring for toxicity (Heparin, Nitro, Insulin, Cardizem)? @ -No Were any procedures done? @ -No Diagnosis/symptom? @ -weakness, UTI Acute, or Chronic, or Acute on Chronic? @ -Acute Uncomplicated (without systemic symptoms) or Complicated (systemic symptoms)? @ -Complicated Side effects of treatment? @ -No Exacerbation, Progression, or Severe Exacerbation? @ -No Poses a threat to life or bodily function? How? (Chest pain, [place], [place], pneumonia, PE, COPD, DKA, ARF, appy, cholecystitis, CVA, Diverticulitis, Homicidal, Suicidal, threat to staff... and all critical care pts) @ -yes - Lab Data Result diagrams: 03/29/23 16:01 03/29/23 16:01 Lab Results 03/29/23 03/29/23 03/29/23 Range/Units 16:01 16:01 16:01 WBC 7.5 (3.8-10.6) k/uL RBC 4.84 (3.80-5.40) m/uL Hgb 15.1 (11.4-16.0) gm/dL Hct 44.6 (34.0-46.0) % MCV 92.3 (80.0-100.0) fL MCH 31.1 (25.0-35.0) pg MCHC 33.7 (31.0-37.0) g/dL RDW 12.7 (11.5-15.5) % Plt Count 187 (150-450) k/uL MPV 9.0 Neutrophils % 77 % Lymphocytes % 13 % Monocytes % 6 % Eosinophils % 2 % Basophils % 1 % Neutrophils # 5.8 (1.3-7.7) k/uL Lymphocytes # 1.0 (1.0-4.8) k/uL Monocytes # 0.5 (0-1.0) k/uL Eosinophils # 0.2 (0-0.7) k/uL Basophils # 0.1 (0-0.2) k/uL PT 11.2 (10.0-12.5) sec INR 1.0 (<1.2) APTT 28.7 (22.0-30.0) sec Sodium 141 (137-145) mmol/L Potassium 3.5 (3.5-5.1) mmol/L Chloride 107 (98-107) mmol/L Carbon Dioxide 27 (22-30) mmol/L Anion Gap 7 mmol/L BUN 20 H (7-17) mg/dL Creatinine 0.77 (0.52-1.04) mg/dL Est GFR (CKD-EPI)AfAm 83 (>60 ml/min/1.73 sqM) Est GFR (CKD-EPI)NonAf 72 (>60 ml/min/1.73 sqM) Glucose 136 H (74-99) mg/dL Plasma Lactic Acid Ankit (0.7-2.0) mmol/L Calcium 10.1 (8.4-10.2) mg/dL Magnesium 2.0 (1.6-2.3) mg/dL Total Bilirubin 0.6 (0.2-1.3) mg/dL AST 16 (14-36) U/L ALT 13 (4-34) U/L Alkaline Phosphatase 99 (38-126) U/L Troponin I (0.000-0.034) ng/mL Total Protein 7.0 (6.3-8.2) g/dL Albumin 3.8 (3.5-5.0) g/dL Urine Color Urine Appearance (Clear) Urine pH (5.0-8.0) Ur Specific [place] (1.001-1.035) Urine Protein (Negative) Urine Glucose (UA) (Negative) Urine Ketones (Negative) Urine Blood (Negative) Urine Nitrite (Negative) Urine Bilirubin (Negative) Urine Urobilinogen (<2.0) mg/dL Ur Leukocyte Esterase (Negative) Urine RBC (0-5) /hpf Urine WBC (0-5) /hpf Urine WBC Clumps (None) /hpf Ur Squamous Epith Cells (0-4) /hpf Calcium Oxalate Crystal (None) /hpf Urine Bacteria (None) /hpf Hyaline Casts (0-2) /lpf Urine Mucus (None) /hpf Influenza Type A (PCR) (Not Detectd) Influenza Type B (PCR) (Not Detectd) RSV (PCR) (Not Detectd) SARS-CoV-2 (PCR) (Not Detectd) 03/29/23 03/29/23 03/29/23 Range/Units 16:01 16:01 16:01 WBC (3.8-10.6) k/uL RBC (3.80-5.40) m/uL Hgb (11.4-16.0) gm/dL Hct (34.0-46.0) % MCV (80.0-100.0) fL MCH (25.0-35.0) pg MCHC (31.0-37.0) g/dL RDW (11.5-15.5) % Plt Count (150-450) k/uL MPV Neutrophils % % Lymphocytes % % Monocytes % % Eosinophils % % Basophils % % Neutrophils # (1.3-7.7) k/uL Lymphocytes # (1.0-4.8) k/uL Monocytes # (0-1.0) k/uL Eosinophils # (0-0.7) k/uL Basophils # (0-0.2) k/uL PT (10.0-12.5) sec INR (<1.2) APTT (22.0-30.0) sec Sodium (137-145) mmol/L Potassium (3.5-5.1) mmol/L Chloride (98-107) mmol/L Carbon Dioxide (22-30) mmol/L Anion Gap mmol/L BUN (7-17) mg/dL Creatinine (0.52-1.04) mg/dL Est GFR (CKD-EPI)AfAm (>60 ml/min/1.73 sqM) Est GFR (CKD-EPI)NonAf (>60 ml/min/1.73 sqM) Glucose (74-99) mg/dL Plasma Lactic Acid Ankit 1.1 (0.7-2.0) mmol/L Calcium (8.4-10.2) mg/dL Magnesium (1.6-2.3) mg/dL Total Bilirubin (0.2-1.3) mg/dL AST (14-36) U/L ALT (4-34) U/L Alkaline Phosphatase (38-126) U/L Troponin I <0.012 (0.000-0.034) ng/mL Total Protein (6.3-8.2) g/dL Albumin (3.5-5.0) g/dL Urine Color Urine Appearance (Clear) Urine pH (5.0-8.0) Ur Specific [place] (1.001-1.035) Urine Protein (Negative) Urine Glucose (UA) (Negative) Urine Ketones (Negative) Urine Blood (Negative) Urine Nitrite (Negative) Urine Bilirubin (Negative) Urine Urobilinogen (<2.0) mg/dL Ur Leukocyte Esterase (Negative) Urine RBC (0-5) /hpf Urine WBC (0-5) /hpf Urine WBC Clumps (None) /hpf Ur Squamous Epith Cells (0-4) /hpf Calcium Oxalate Crystal (None) /hpf Urine Bacteria (None) /hpf Hyaline Casts (0-2) /lpf Urine Mucus (None) /hpf Influenza Type A (PCR) Not Detected (Not Detectd) Influenza Type B (PCR) Not Detected (Not Detectd) RSV (PCR) Not Detected (Not Detectd) SARS-CoV-2 (PCR) Not Detected (Not Detectd) 03/29/23 Range/Units 18:45 WBC (3.8-10.6) k/uL RBC (3.80-5.40) m/uL Hgb (11.4-16.0) gm/dL Hct (34.0-46.0) % MCV (80.0-100.0) fL MCH (25.0-35.0) pg MCHC (31.0-37.0) g/dL RDW (11.5-15.5) % Plt Count (150-450) k/uL MPV Neutrophils % % Lymphocytes % % Monocytes % % Eosinophils % % Basophils % % Neutrophils # (1.3-7.7) k/uL Lymphocytes # (1.0-4.8) k/uL Monocytes # (0-1.0) k/uL Eosinophils # (0-0.7) k/uL Basophils # (0-0.2) k/uL PT (10.0-12.5) sec INR (<1.2) APTT (22.0-30.0) sec Sodium (137-145) mmol/L Potassium (3.5-5.1) mmol/L Chloride (98-107) mmol/L Carbon Dioxide (22-30) mmol/L Anion Gap mmol/L BUN (7-17) mg/dL Creatinine (0.52-1.04) mg/dL Est GFR (CKD-EPI)AfAm (>60 ml/min/1.73 sqM) Est GFR (CKD-EPI)NonAf (>60 ml/min/1.73 sqM) Glucose (74-99) mg/dL Plasma Lactic Acid Ankit (0.7-2.0) mmol/L Calcium (8.4-10.2) mg/dL Magnesium (1.6-2.3) mg/dL Total Bilirubin (0.2-1.3) mg/dL AST (14-36) U/L ALT (4-34) U/L Alkaline Phosphatase (38-126) U/L Troponin I (0.000-0.034) ng/mL Total Protein (6.3-8.2) g/dL Albumin (3.5-5.0) g/dL Urine Color Light Yellow Urine Appearance Cloudy H (Clear) Urine pH 5.5 (5.0-8.0) Ur Specific [place] 1.020 (1.001-1.035) Urine Protein Trace H (Negative) Urine Glucose (UA) Negative (Negative) Urine Ketones Negative (Negative) Urine Blood Small H (Negative) Urine Nitrite Negative (Negative) Urine Bilirubin Negative (Negative) Urine Urobilinogen <2.0 (<2.0) mg/dL Ur Leukocyte Esterase Large H (Negative) Urine RBC 20 H (0-5) /hpf Urine WBC 86 H (0-5) /hpf Urine WBC Clumps Moderate H (None) /hpf Ur Squamous Epith Cells 1 (0-4) /hpf Calcium Oxalate Crystal Occasional H (None) /hpf Urine Bacteria Few H (None) /hpf Hyaline Casts 1 (0-2) /lpf Urine Mucus Few H (None) /hpf Influenza Type A (PCR) (Not Detectd) Influenza Type B (PCR) (Not Detectd) RSV (PCR) (Not Detectd) SARS-CoV-2 (PCR) (Not Detectd) - EKG Data -: EKG Interpreted by Me EKG Comments: 12-lead Electrocardiogram Interpretation Note EKG was reviewed and interpreted by myself. 12-lead ECG performed at 1554 is interpreted by me as revealing normal sinus rhythm at a rate of 74 beats per mi nute. [place] is normal. CT interval is 166 ms, QRS duration is 89 ms, QTc is 389 ms.. There were no ST or T wave abnormalities to suggest myocardial ischemia or injury. R wave progression across the precordium was satisfactory. By my interpretation this EKG is non-diagnostic for acute ischemia. Disposition Clinical Impression: Weakness, UTI (urinary tract infection) Disposition: ADMITTED IP TO THIS HOSP Condition: Stable Time of Disposition: 18:42
[2023-03-29] MEDS: NON FORMULARY DRUG (Brexpiprazole [Rexulti] 2 MG Tablet) PO SCH (21:36)
[2023-03-29] MEDS: SODIUM CHLORIDE 0.9% 1,000 ML IV SCH (21:39)
[2023-03-29] MEDS: PANTOPRAZOLE 40 MG TABLET PO SCH (21:39)
[2023-03-29] MEDS: PRAVASTATIN SODIUM 80 MG TAB PO SCH (21:39)
[2023-03-29] MEDS: MEMANTINE 10 MG TAB PO SCH (21:39)
[2023-03-29] MEDS: RIVAROXABAN 15 MG TAB PO SCH (21:49)
[2023-03-30] MEDS: SODIUM CHLORIDE 0.9% 1,000 ML IV SCH (04:41)
[2023-03-30] MEDS ORDERED: LEVOTHYROXINE 125 MCG TAB PO SCH (06:30)
[2023-03-30 08:24] LABS: Basophils # (A) 0.04 X 10*3/uL (0.00-0.10); Basophils % (A) 0.5 %; Eosinophils # (A) 0.08 X 10*3/uL (0.04-0.35); Eosinophils % (A) 1.1 %; HCT 44.6 % (37.2-46.3); HGB 14.4 d/dL (12.0-15.0); Lymphocytes # (A) 0.92 X 10*3/uL (0.90-5.00); Lymphocytes % (A) 12.6 %; MCH 29.8 pg (27.0-32.0); MCHC 32.3 d/dL (32.0-37.0); MCV 92.1 FL (80.0-97.0); Monocytes # (A) 0.78 X 10*3/uL (0.20-1.00); Monocytes % (A) 10.7 %; NRBC Per 100 WBC 0 X 10*3/uL (0.00-0.01); Neutrophils # (A) 5.46 X 10*3/uL (1.80-7.70); Neutrophils % (A) 74.8 %; Platelet Count 186 X 10*3/uL (140-440); RBC 4.84 X 10*6/uL (4.10-5.20); RDW 12.6 % (11.5-14.5)
[2023-03-30 08:38] LABS: BUN/Creat Ratio 20.71 Ratio (12.00-20.00); Blood Urea Nitrogen 14.5 mg/dL (9.0-27.0); Calcium 9.6 mg/dL (8.7-10.3); Chloride 108 mmol/L (96-109); Glucose 118 mg/dL (70-110); Potassium 3.4 mmol/L (3.5-5.5); Sodium 143 mmol/L (135-145)
[2023-03-30] MEDS: DONEPEZIL 10 MG TAB PO SCH (09:22)
[2023-03-30] MEDS: MEMANTINE 10 MG TAB PO SCH ×2 (09:22→20:27)
[2023-03-30] MEDS: LORATADINE 10 MG TAB PO SCH (09:22)
[2023-03-30] MEDS: CYANOCOBALAMIN 500 MCG TAB PO SCH (09:22)
[2023-03-30] MEDS: amLODIPine 10 MG TAB PO SCH (09:22)
[2023-03-30] MEDS: PANTOPRAZOLE 40 MG TABLET PO SCH ×3 (09:22→20:58)
[2023-03-30] MEDS: VORTIOXETINE HYDROBROMIDE 20 MG TABLET PO SCH (09:22)
[2023-03-30] MEDS ORDERED: Potassium Replacement Protocol 1 EACH MISC MISCELLANE PRN (09:33)
[2023-03-30] MEDS: POTASSIUM CHLORIDE ER 20 MEQ TAB.ER PO SCH ×3 (13:26→18:36)
[2023-03-30] MEDS: lisinopriL 5 MG TAB PO SCH (13:26)
[2023-03-30] MEDS: MEROPENEM 1 GM in SODIUM CHLORIDE 0.9% 100 ML IVPB SCH ×2 (15:01→20:26)
[2023-03-30] MEDS: ACETAMINOPHEN TAB 325 MG TAB PO PRN (18:24)
--- NOTE | 2023-03-30 18:39 | P.HPIM ---
History of Present Illness H&P Date: 03/30/23 This is a 81-year-old female who presented to the emergency department with increasing weakness per family who she resides with and has been progressively becoming more weak over the last few days. Patient follows with Dr. Craig in the outpatient setting with a past medical history of atrial fibrillation, COPD, dementia, diabetes mellitus, GERD, hyperlipidemia, hypertension, osteoarthritis, thyroid issues, frequent urinary tract infections and denies smoking, alcohol, or illicit drug use. Patient had T brain showing no acute process with no bleed and no significant interval change, chest x-ray showed no acute cardiopulmonary process. Labs reviewed and white count was within normal limits hemoglobin was stable and patient was afebrile. Patient had a sodium of 141 with a potassium o f 3.5 current BUN 20 with a creatinine which was 0.77. Troponin was negative and urinalysis was done which was mildly positive for leukocyte Estrace. On exam this morning patient reported having burning and pain with frequency during urination and patient is incontinent. Patient normally walks with a walker on occasion in the home although has not been walking. Patient admitted for weakness with concern of possible urinary tract infection. Review Of Systems: Constitutional: No fever, no chills, no night sweats. No weight change. Reports of weakness, no fatigue or lethargy. No daytime sleepiness. EENT: No headache. No blurred vision or double vision, no loss of vision. No loss of Hearing, no ringing in the ears, no dizziness. No nasal drainage or congestion. No epistaxis. No sore throat. Lungs: No shortness of breath, cough, no sputum production. No wheezing. Cardiovascular: No chest pain, no lower extremity edema. No palpitations. No paroxysmal nocturnal dyspnea. No orthopnea. No lightheadedness or dizziness. No syncopal episodes. Abdominal: No abdominal pain. No nausea, vomiting. No diarrhea. No constipation. No bloody or tarry stools.. No loss of appetite. Genitourinary: No dysuria, reports increased frequency and pain and burning with urination, no urgency. No urinary retention. Musculoskeletal: No myalgias. Reports of muscle weakness, no gait dysfunction, no frequent falls. No back pain. No neck pain. Integumentary: No wounds, no lesions. No rash or pruritus. No unusual bruising. No change in hair or nails. Neurologic: No aphasia. No facial droop. No change in mentation. No head injury. No headache. No paralysis. No paresthesia. Psychiatric: No depression. No anxiety. No mood swings. Endocrine: No abnormal blood sugars. No weight change. No excessive sweating or thirst. No cold intolerance. PHYSICAL EXAMINATION: GENERAL: The patient is alert and oriented x1 which is her baseline, Well developed, well nourished. Elderly-appearing, obese HEENT: Pupils are round and equally reacting to light. EOMI. no scleral icterus. No conjunctival pallor. Normocephalic, atraumatic. No pharyngeal erythema. No thyromegaly. CARDIOVASCULAR: S1 and S2 muffled PULMONARY: diminished breath sounds bilaterally otherwise clear to auscultation with no wheezing or rhonchi noted. ABDOMEN: soft. Nontender on exam. obese. non-distended, normoactive bowel sounds. No palpable organomegaly. MUSCULOSKELETAL: No joint swelling or deformity. EXTREMITIES: No cyanosis, clubbing, or pedal edema. NEUROLOGICAL: Gross neurological examination did not reveal any focal deficits. Diffuse weakness SKIN: No rashes. Assessment: Increased weakness with gait dysfunction Possible acute urinary tract infection, present on admission with pain, frequency, and burning with urination History of atrial fibrillation COPD history, not an exacerbation Dementia history Diabetes mellitus, type II GERD Hyperlipidemia Hypertension Obesity with a BMI of 33.3 GI prophylaxis DVT prophylaxis Full code Plan: Recommend to continue with current medications and was admitted with increased weakness will have PT/OT therapy evaluate the patient Social work placed on consult for possible ECF Home medications reviewed and resumed as appropriate Patient was started on antibiotics in the form of ceftriaxone and with 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 Patient is symptomatic with pain, frequency, and burning with urination and will send for urine culture and await finalized cultures The impression and plan of care has been dictated by Sabine Burch, nurse practitioner as directed. Dr. Nadia MD I have performed a history and examination and MDM of this patient, discussed the same with the dictator, and agree with the dictator's assessment and plan as written ,documented as a scribe. Based on total visit time, I have performed more than 50% of the visit. Any additional findings or plans will be noted. 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 Past Anesthesia/Blood Transfusion Reactions: No Reported Reaction Date of Last Stent Placement:: 2017 Past Psychological History: Unable to Obtain, Depression Smoking Status: Former smoker Past Alcohol Use History: None Reported Additional Past Alcohol Use History / Comment(s): quit smoking in the s Past Drug Use History: None Reported - Past Family History Daughter(s) Family Medical History: Cancer Father History Unknown: Yes Additional Family Medical History / Comment(s): BRAIN TUMOR Mother Family Medical History: Cancer Medications and Allergies Home Medications Medication Instructions Recorded Confirmed Type Levothyroxine Sodium [Synthroid] 150 mcg PO SUTUWETHSA 09/30/13 03/29/23 History Pravastatin Sodium [Pravachol] 80 mg PO HS 11/07/14 03/29/23 History Multivitamins, Thera [Multivitamin 1 tab PO DAILY 06/01/18 03/29/23 History (formulary)] Ferrous Sulfate [Iron (65 MG 325 mg PO DAILY 06/16/18 03/29/23 History Elemental)] Donepezil [Aricept] 10 mg PO DAILY 06/22/21 03/29/23 History Memantine [Namenda] 10 mg PO BID 06/22/21 03/29/23 History Mirabegron [Myrbetriq] 50 mg PO DAILY 06/22/21 03/29/23 History Sennosides-Docusate Sodium 1 tab PO HS 06/22/21 03/29/23 History [Senokot-S] Cyanocobalamin [Vitamin B-12] 500 mcg PO DAILY 07/16/21 03/29/23 History Rivaroxaban [Xarelto] 15 mg PO HS 07/16/21 03/29/23 History Pantoprazole [Protonix] 40 mg PO BID 02/23/22 03/29/23 History Levothyroxine Sodium [Synthroid] 125 mcg PO MOFR 06/05/22 03/29/23 History Loratadine [Claritin] 10 mg PO DAILY 06/05/22 03/29/23 History Nitroglycerin Sl Tabs [Nitrostat] 0.4 mg SL Q5M PRN 06/05/22 03/29/23 History Vortioxetine Hydrobromide 20 mg PO DAILY 06/05/22 03/29/23 History [Trintellix] amLODIPine [Norvasc] 10 mg PO DAILY 30 Days #30 tab 06/09/22 03/29/23 Rx Methenamine Hippurate 1 gm PO BID 12/24/22 03/29/23 History lisinopriL [Zestril] 5 mg PO DAILY tab 12/30/22 03/29/23 Rx Brexpiprazole [Rexulti] 2 mg PO HS 03/29/23 03/29/23 History Allergies Allergy/AdvReac Type Severity Reaction Status Date / Time azithromycin Allergy Rash/Hives Verified 03/29/23 16:09 [From Zithromax Z-Chau] codeine Allergy Unknown Verified 03/29/23 16:09 hydrochlorothiazide Allergy Unknown Verified 03/29/23 16:09 [From Dyazide] lincomycin HCl Allergy Unknown Verified 03/29/23 16:09 [From Lincocin] meperidine HCl [From Demerol] Allergy Unknown Verified 03/29/23 16:09 metronidazole [From Flagyl] Allergy Unknown Verified 03/29/23 16:09 Metronidazole HCl Allergy Unknown Verified 03/29/23 16:09 [From Flagyl] nitrofurantoin Allergy Confusion Verified 03/29/23 16:09 [From Macrobid] Penicillins Allergy Unknown Verified 03/29/23 16:09 Childhood [id number] Reductase Allergy Unknown Verified 03/29/23 16:09 Inhibitor Sulfa (Sulfonamide Allergy Unknown Verified 03/29/23 16:09 Antibiotics) tetracycline [Tetracycline] Allergy Unknown Verified 03/29/23 16:09 triamterene [From Dyazide] Allergy Unknown Verified 03/29/23 16:09 watermelon Allergy Swelling Verified 03/29/23 16:09 atorvastatin calcium AdvReac MUSCLE Verified 03/29/23 16:09 [From Lipitor] ACHES rosuvastatin calcium AdvReac MUSCLE Verified 03/29/23 16:09 [From Crestor] ACHES Physical Exam Vitals: Vital Signs Temp Pulse Pulse Resp BP BP BP 03/30/23 07:05 98.4 F 77 16 179/75 03/30/23 00:44 97.7 F 74 16 178/69 03/29/23 21:10 98.2 F 67 16 175/78 03/29/23 20:12 98.9 F 03/29/23 20:00 19 03/29/23 19:30 92 7 L 158/86 03/29/23 19:00 93 7 L 148/73 03/29/23 18:30 92 20 153/62 03/29/23 18:00 77 21 170/62 03/29/23 17:30 80 20 157/60 03/29/23 17:00 82 16 03/29/23 16:30 147/57 03/29/23 16:00 77 20 139/58 03/29/23 15:30 73 20 152/70 03/29/23 15:00 84 13 154/67 03/29/23 14:56 13 03/29/23 14:52 99.5 F 80 16 152/70 03/29/23 14:37 98.8 F 78 20 154/77 Pulse Ox 03/30/23 07:05 96 03/30/23 00:44 96 03/29/23 21:10 98 03/29/23 20:12 03/29/23 20:00 03/29/23 19:30 03/29/23 19:00 03/29/23 18:30 03/29/23 18:00 03/29/23 17:30 03/29/23 17:00 97 03/29/23 16:30 03/29/23 16:00 03/29/23 15:30 03/29/23 15:00 97 03/29/23 14:56 03/29/23 14:52 96 03/29/23 14:37 98 Intake and Output 03/29/23 03/30/23 03/30/23 22:59 06:59 14:59 Output Total 500 Balance -500 Output: Urine 500 Other: Voiding Method External Catheter External Catheter Weight 87.997 kg Results CBC & Chem 7: 03/30/23 05:42 03/30/23 05:42 Labs: Abnormal Lab Results - Last 24 Hours (Table) 03/29/23 03/29/23 03/30/23 Range/Units 16:01 18:45 05:42 Potassium 3.4 L (3.5-5.5) mmol/L BUN 20 H (7-17) mg/dL BUN/Creatinine Ratio 20.71 H (12.00-20.00) Ratio Glucose 136 H 118 H (74-99) mg/dL Urine Appearance Cloudy H (Clear) Urine Protein Trace H (Negative) Urine Blood Small H (Negative) Ur Leukocyte Esterase Large H (Negative) Urine RBC 20 H (0-5) /hpf Urine WBC 86 H (0-5) /hpf Urine WBC Clumps Moderate H (None) /hpf Calcium Oxalate Crystal Occasional H (None) /hpf Urine Bacteria Few H (None) /hpf Urine Mucus Few H (None) /hpf Thrombosis Risk Factor Assmnt - DVT/VTE Prophylaxis DVT/VTE Prophylaxis: Pharmacologic Prophylaxis ordered Assessment and Plan Time with Patient: Greater than 30
[2023-03-30] MEDS ORDERED: DEXTROSE 50% SYRINGE 50 ML IVP PRN (18:40)
[2023-03-30 20:25] LABS: Glucose,Whole Blood 152 mg/dL (70-110)
[2023-03-30] MEDS: INSULIN ASPART (NovoLOG) 100 UNIT/ML VIAL SQ SCH (20:26)
[2023-03-30] MEDS: hydrALAZINE HCL 20 MG/ML 1 ML VIAL IVP PRN (20:27)
[2023-03-30] MEDS: RIVAROXABAN 15 MG TAB PO SCH (20:27)
[2023-03-30] MEDS: PRAVASTATIN SODIUM 80 MG TAB PO SCH ×2 (20:27→20:58)
[2023-03-30] MEDS: NON FORMULARY DRUG (Brexpiprazole [Rexulti] 2 MG Tablet) PO SCH (20:58)
[2023-03-31] MEDS: hydrALAZINE HCL 20 MG/ML 1 ML VIAL IVP PRN (02:51)
[2023-03-31] MEDS: ACETAMINOPHEN TAB 325 MG TAB PO PRN (02:51)
[2023-03-31] MEDS ORDERED: ACETAMINOPHEN IV (For NPO) 1,000 MG in EMPTY BAG 1 BAG IVPB ONE (04:15)
[2023-03-31] MEDS: SODIUM CHLORIDE 0.9% 1,000 ML IV SCH ×2 (04:30→19:57)
[2023-03-31 06:17] LABS: Glucose,Whole Blood 119 mg/dL (70-110)
[2023-03-31] MEDS: INSULIN ASPART (NovoLOG) 100 UNIT/ML VIAL SQ SCH ×4 (06:22→20:34)
[2023-03-31] MEDS: LEVOTHYROXINE 75 MCG TAB PO SCH (06:40)
--- NOTE | 2023-03-31 06:52 | P.CONS ---
History of Present Illness - Reason for Consult Consult date: 03/30/23 History of resistant UTI, ESBL Requesting physician: Sabine Burch - Chief Complaint Weakness x few days - History of Present Illness Patient is a 83-year-old female with a past medical history significant for atrial fibrillation COPD dementia diabetes mellitus hypertension hyperlipidemia patient was brought into the ER for evaluation of weakness. Patient is more weak than usual unable to ambulate and was complaining of generalized body aches patient on presentation to the hospital was afebrile patient did have a normal white count creatinine was normal patient did have a positive UA influenza RSV and COVID testing was negative patient did have a chest x-ray no acute cardiopulmonary process mild cardiomegaly with concern for UTI patient has been admitted to the hospital patient was started on meropenem keeping in mind her history of ESBL E. coli UTI infectious disease was consulted for further management of antibiotic therapy, most information has been obtained from review the chart talking nursing staff as the patient has not was not a very good historian and specifically she was denying worsening symptoms such as chest pain or cough no vomiting diarrhea or any other changes reported by the nursing staff Review of Systems Positive point and negatives has been mentioned in the HPI, complete review of systems was performed and all other systems are negative Past Medical History Past Medical History: Atrial Fibrillation, COPD, Dementia, Diabetes Mellitus, GERD/Reflux, Hyperlipidemia, Hypertension, Memory Impairment, Osteoarthritis (OA), Pneumonia, Thyroid Disorder Additional Past Medical History / Comment(s): Right hip wound [id number], diet controlled diabetes, osteoporosis, incontinue Last Myocardial Infarction Date:: 2017 History of Any Multi-Drug Resistant Organisms: None Reported, MRSA, Other MDRO, VRE Year Discovered:: 06/05/22 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 Past Anesthesia/Blood Transfusion Reactions: No Reported Reaction Date of Last Stent Placement:: 2017 Past Psychological History: Unable to Obtain, Depression Smoking Status: Former smoker Past Alcohol Use History: None Reported Additional Past Alcohol Use History / Comment(s): quit smoking in the 70's Past Drug Use History: None Reported - Past Family History Daughter(s) Family Medical History: Cancer Father History Unknown: Yes Additional Family Medical History / Comment(s): BRAIN TUMOR Mother Family Medical History: Cancer Medications and Allergies Home Medications Medication Instructions Recorded Confirmed Type Levothyroxine Sodium [Synthroid] 150 mcg PO SUTUWETHSA 09/30/13 03/29/23 History Pravastatin Sodium [Pravachol] 80 mg PO HS 11/07/14 03/29/23 History Multivitamins, Thera [Multivitamin 1 tab PO DAILY 06/01/18 03/29/23 History (formulary)] Ferrous Sulfate [Iron (65 MG 325 mg PO DAILY 06/16/18 03/29/23 History Elemental)] Donepezil [Aricept] 10 mg PO DAILY 06/22/21 03/29/23 History Memantine [Namenda] 10 mg PO BID 06/22/21 03/29/23 History Mirabegron [Myrbetriq] 50 mg PO DAILY 06/22/21 03/29/23 History Sennosides-Docusate Sodium 1 tab PO HS 06/22/21 03/29/23 History [Senokot-S] Cyanocobalamin [Vitamin B-12] 500 mcg PO DAILY 07/16/21 03/29/23 History Rivaroxaban [Xarelto] 15 mg PO HS 07/16/21 03/29/23 History Pantoprazole [Protonix] 40 mg PO BID 02/23/22 03/29/23 History Levothyroxine Sodium [Synthroid] 125 mcg PO MOFR 06/05/22 03/29/23 History Loratadine [Claritin] 10 mg PO DAILY 06/05/22 03/29/23 History Nitroglycerin Sl Tabs [Nitrostat] 0.4 mg SL Q5M PRN 06/05/22 03/29/23 History Vortioxetine Hydrobromide 20 mg PO DAILY 06/05/22 03/29/23 History [Trintellix] amLODIPine [Norvasc] 10 mg PO DAILY 30 Days #30 tab 06/09/22 03/29/23 Rx Methenamine Hippurate 1 gm PO BID 12/24/22 03/29/23 History lisinopriL [Zestril] 5 mg PO DAILY tab 12/30/22 03/29/23 Rx Brexpiprazole [Rexulti] 2 mg PO HS 03/29/23 03/29/23 History Allergies Allergy/AdvReac Type Severity Reaction Status Date / Time azithromycin Allergy Rash/Hives Verified 03/29/23 16:09 [From Zithromax Z-Chau] codeine Allergy Unknown Verified 03/29/23 16:09 hydrochlorothiazide Allergy Unknown Verified 03/29/23 16:09 [From Dyazide] lincomycin HCl Allergy Unknown Verified 03/29/23 16:09 [From Lincocin] meperidine HCl [From Demerol] Allergy Unknown Verified 03/29/23 16:09 metronidazole [From Flagyl] Allergy Unknown Verified 03/29/23 16:09 Metronidazole HCl Allergy Unknown Verified 03/29/23 16:09 [From Flagyl] nitrofurantoin Allergy Confusion Verified 03/29/23 16:09 [From Macrobid] Penicillins Allergy Unknown Verified 03/29/23 16:09 Childhood Krvyynp-ASW-YbV Reductase Allergy Unknown Verified 03/29/23 16:09 Inhibitor Sulfa (Sulfonamide Allergy Unknown Verified 03/29/23 16:09 Antibiotics) tetracycline [Tetracycline] Allergy Unknown Verified 03/29/23 16:09 triamterene [From Dyazide] Allergy Unknown Verified 03/29/23 16:09 watermelon Allergy Swelling Verified 03/29/23 16:09 atorvastatin calcium AdvReac MUSCLE Verified 03/29/23 16:09 [From Lipitor] ACHES rosuvastatin calcium AdvReac MUSCLE Verified 03/29/23 16:09 [From Crestor] ACHES Physical Exam Vitals: Vital Signs Temp Pulse Pulse Resp BP BP BP 03/30/23 08:00 77 16 03/30/23 07:05 98.4 F 77 16 179/75 03/30/23 00:44 97.7 F 74 16 178/69 03/29/23 21:10 98.2 F 67 16 175/78 03/29/23 20:12 98.9 F 03/29/23 20:00 19 03/29/23 19:30 92 7 L 158/86 03/29/23 19:00 93 7 L 148/73 03/29/23 18:30 92 20 153/62 03/29/23 18:00 77 21 170/62 03/29/23 17:30 80 20 157/60 03/29/23 17:00 82 16 03/29/23 16:30 147/57 03/29/23 16:00 77 20 139/58 03/29/23 15:30 73 20 152/70 03/29/23 15:00 84 13 154/67 03/29/23 14:56 13 03/29/23 14:52 99.5 F 80 16 152/70 03/29/23 14:37 98.8 F 78 20 154/77 Pulse Ox 03/30/23 08:00 03/30/23 07:05 96 03/30/23 00:44 96 03/29/23 21:10 98 03/29/23 20:12 03/29/23 20:00 03/29/23 19:30 03/29/23 19:00 03/29/23 18:30 03/29/23 18:00 03/29/23 17:30 03/29/23 17:00 97 03/29/23 16:30 03/29/23 16:00 03/29/23 15:30 03/29/23 15:00 97 03/29/23 14:56 03/29/23 14:52 96 03/29/23 14:37 98 Intake and Output 03/29/23 03/30/23 03/30/23 22:59 06:59 14:59 Output Total 500 Balance -500 Output: Urine 500 Other: Voiding Method External Catheter External Catheter External Catheter Weight 87.997 kg GENERAL DESCRIPTION: Elderly female lying in bed, no distress. No tachypnea or accessory muscle of respiration use. HEENT: Shows Pallor , no scleral icterus. Oral mucous membrane is dry. No pharyngeal erythema or thrush NECK: Trachea central, no thyromegaly. LUNGS: Unlabored breathing. Clear to auscultation anteriorly. No wheeze or crackle. HEART: S1, S2, regular rate and rhythm. No loud murmur ABDOMEN: Soft, no tenderness , EXTREMITIES: No edema of feet. SKIN: No rash, no masses palpable. NEUROLOGICAL: The patient is sleepy lethargic orientation could not be determined Results CBC & Chem 7: 04/01/23 06:52 03/31/23 06:34 Labs: Abnormal Lab Results - Last 24 Hours (Table) 03/29/23 03/29/23 03/30/23 Range/Units 16:01 18:45 05:42 Potassium 3.4 L (3.5-5.5) mmol/L BUN 20 H (7-17) mg/dL BUN/Creatinine Ratio 20.71 H (12.00-20.00) Ratio Glucose 136 H 118 H (74-99) mg/dL Urine Appearance Cloudy H (Clear) Urine Protein Trace H (Negative) Urine Blood Small H (Negative) Ur Leukocyte Esterase Large H (Negative) Urine RBC 20 H (0-5) /hpf Urine WBC 86 H (0-5) /hpf Urine WBC Clumps Moderate H (None) /hpf Calcium Oxalate Crystal Occasional H (None) /hpf Urine Bacteria Few H (None) /hpf Urine Mucus Few H (None) /hpf Assessment and Plan (1) UTI (urinary tract infection) Current Visit: Yes Status: Acute Code(s): N39.0 - URINARY TRACT INFECTION, SITE NOT SPECIFIED SNOMED Code(s): 07814039 Plan: 1patient presented to hospital with weakness some mental status changes and this patient did have a positive any history of recurrent urine tract infection likely secondary to symptomatic UTI in this patient who has previously grown ESBL pathogen and will need to cover for while waiting for the culture to finalize 2-patient to continue with the meropenem adjust the dose to 1 g every 8 hour while waiting for the culture to finalize We will follow on clinical condition and cultures to further adjust medication if needed Thank you for this consultation we will follow the patient along with you Dictation was produced using [employer] dictation software. please excuse any grammatical, word or spelling errors. Time with Patient: Greater than 30
[2023-03-31] MEDS: MEROPENEM 1 GM in SODIUM CHLORIDE 0.9% 100 ML IVPB SCH ×2 (09:00→17:07)
[2023-03-31] MEDS: VORTIOXETINE HYDROBROMIDE 20 MG TABLET PO SCH (09:43)
[2023-03-31] MEDS: MEMANTINE 10 MG TAB PO SCH ×2 (09:43→19:57)
[2023-03-31] MEDS: amLODIPine 10 MG TAB PO SCH (09:43)
[2023-03-31] MEDS: lisinopriL 5 MG TAB PO SCH (09:43)
[2023-03-31] MEDS: PANTOPRAZOLE 40 MG TABLET PO SCH ×2 (09:43→19:57)
[2023-03-31] MEDS: DONEPEZIL 10 MG TAB PO SCH (09:44)
[2023-03-31] MEDS: CYANOCOBALAMIN 500 MCG TAB PO SCH (10:22)
[2023-03-31] MEDS: LORATADINE 10 MG TAB PO SCH (10:22)
[2023-03-31 10:45] LABS: Basophils # (A) 0.05 X 10*3/uL (0.00-0.10); Basophils % (A) 0.6 %; Eosinophils # (A) 0.02 X 10*3/uL (0.04-0.35); Eosinophils % (A) 0.3 %; HCT 40.7 % (37.2-46.3); HGB 13.6 d/dL (12.0-15.0); Lymphocytes # (A) 0.91 X 10*3/uL (0.90-5.00); Lymphocytes % (A) 11.8 %; MCH 30.8 pg (27.0-32.0); MCHC 33.4 d/dL (32.0-37.0); MCV 92.3 FL (80.0-97.0); Mean Platelet Volume 12.1 FL (9.5-12.2); Monocytes # (A) 0.88 X 10*3/uL (0.20-1.00); Monocytes % (A) 11.4 %; NRBC Per 100 WBC 0 X 10*3/uL (0.00-0.01); Neutrophils # (A) 5.83 X 10*3/uL (1.80-7.70); Neutrophils % (A) 75.6 %; Platelet Count 200 X 10*3/uL (140-440); RBC 4.41 X 10*6/uL (4.10-5.20); WBC 7.71 X 10*3/uL (4.50-10.00)
[2023-03-31 11:31] LABS: BUN/Creat Ratio 25.71 Ratio (12.00-20.00); Carbon Dioxide 23.9 mmol/L (21.6-31.8); Chloride 110 mmol/L (96-109); Glucose 120 mg/dL (70-110); Potassium 3.5 mmol/L (3.5-5.5); Sodium 142 mmol/L (135-145)
[2023-03-31 11:34] LABS: Glucose,Whole Blood 118 mg/dL (70-110)
--- NOTE | 2023-03-31 12:30 | P.PN ---
Subjective Progress Note Date: 03/31/23 Principal diagnosis: Urinary tract infection Patient is a 83-year-old female with a past medical history significant for atrial fibrillation COPD dementia diabetes mellitus hypertension hyperlipidemia patient was brought into the ER for evaluation of weakness. Patient did have a positive UA and a history of recurrent UTI admitted to the hospital for urinary tract infection On today's evaluation that is 03/31/2023, the patient continues to be afebrile, the patient is breathing comfortably on room air and no need for supplemental oxygen, the patient slightly more awake and alert today and denied any symptoms no vomiting or diarrhea has been reported Patient did have a white count of 7.71, creatinine 0.7 urine culture growing gram-negative bacilli Objective - Vital Signs Vital signs: Vital Signs Temp 99.0 F 03/31/23 07:00 Pulse 84 03/31/23 07:00 Resp 12 03/31/23 07:00 BP 137/73 03/31/23 07:00 Pulse Ox 93 L 03/31/23 07:00 FiO2 Intake & Output 03/30/23 03/31/23 03/31/23 18:59 06:59 18:59 Output Total 900 350 Balance -900 -350 Output: Urine 900 350 Other: Voiding Method External Catheter External Catheter # Voids 1 - Exam GENERAL DESCRIPTION: An elderly female lying in bed in no distress RESPIRATORY SYSTEM: Unlabored breathing , clear to auscultation anteriorly HEART: S1 S2 regular rate and rhythm , ABDOMEN: Soft , no tenderness EXTREMITIES: No edema feet - Labs CBC & Chem 7: 03/31/23 06:34 03/31/23 06:34 Labs: Abnormal Lab Results - Last 24 Hours (Table) 03/30/23 03/31/23 Range/Units 20:23 06:16 POC Glucose (mg/dL) 152 H 119 H (70-110) mg/dL Microbiology - Last 24 Hours (Table) 03/29/23 18:45 Urine Culture - Preliminary Urine,Voided Gram Neg Bacilli Assessment and Plan (1) UTI (urinary tract infection) Current Visit: Yes Status: Acute Code(s): N39.0 - URINARY TRACT INFECTION, SITE NOT SPECIFIED SNOMED Code(s): 31602950 Plan: 1patient presented to hospital with weakness some mental status changes and this patient did have a positive any history of recurrent urine tract infection likely secondary to symptomatic UTI in this patient who has previously grown ESBL pathogen and will need to cover for while waiting for the culture to finalize 2-patient to continue with the meropenem while waiting for the culture to finalize and monitor clinical course closely Dictation was produced using [employer] dictation software. please excuse any grammatical, word or spelling errors. Time with Patient: Less than 30
[2023-03-31 17:13] LABS: Glucose,Whole Blood 104 mg/dL (70-110)
[2023-03-31] MEDS: NON FORMULARY DRUG (Brexpiprazole [Rexulti] 2 MG Tablet) PO SCH (19:56)
[2023-03-31] MEDS: RIVAROXABAN 15 MG TAB PO SCH (19:57)
[2023-03-31] MEDS: PRAVASTATIN SODIUM 80 MG TAB PO SCH (19:57)
[2023-03-31 20:24] LABS: Glucose,Whole Blood 105 mg/dL (70-110)
[2023-04-01] MEDS: MEROPENEM 1 GM in SODIUM CHLORIDE 0.9% 100 ML IVPB SCH ×2 (01:11→09:38)
--- NOTE | 2023-04-01 05:56 | P.PN ---
Subjective Progress Note Date: 03/31/23 This is a 81-year-old female who presented to the emergency department with increasing weakness per family who she resides with and has been progressively becoming more weak over the last few days. Patient follows with Dr. Craig in the outpatient setting with a past medical history of atrial fibrillation, COPD, dementia, diabetes mellitus, GERD, hyperlipidemia, hypertension, osteoarthritis, thyroid issues, frequent urinary tract infections and denies smoking, alcohol, or illicit drug use. Patient had T brain showing no acute process with no bleed and no significant interval change, chest x-ray showed no acute cardiopulmonary process. Labs reviewed and white count was within normal limits hemoglobin was stable and patient was afebrile. Patient had a sodium of 141 with a potassium of 3.5 current BUN 20 with a creatinine which was 0.77. Troponin was negative and urinalysis was done which was mildly positive for leukocyte Estrace. On exam this morning patient reported having burning and pain with frequency during urination and patient is incontinent. Patient normally walks with a walker on occasion in the home although has not been walking. Patient admitted for weakness with concern of possible urinary tract infection. 03/31/2023 Patient is seen and evaluated follow-up and is lethargic although arousable. Patient fatigues very easily and per nursing staff patient has been sleeping most of the morning. Patient having low-grade temps and is maintained on meropenem with infectious disease following awaiting for urine cultures. Preliminary are gram-negative and awaiting finalized cultures to determine discharge antibiotics. PT/OT therapy evaluated recommending rehab inpatient family is agreeable. Case management/social work following working on [facility]. Review of systems: Unable to completely assess as patient is lethargic and fatigues easily PHYSICAL EXAMINATION: GENERAL: The patient is asleep although arousable and lethargic, alert and oriented x1 which is her baseline, Well developed, well nourished. Elderly- appearing, obese HEENT: Pupils are round and equally reacting to light. EOMI. no scleral icterus. No conjunctival pallor. Normocephalic, atraumatic. No pharyngeal erythema. No thyromegaly. CARDIOVASCULAR: S1 and S2 muffled PULMONARY: diminished breath sounds bilaterally otherwise clear to auscultation with no wheezing or rhonchi noted. ABDOMEN: soft. Nontender on exam. obese. non-distended, normoactive bowel sounds. No palpable organomegaly. MUSCULOSKELETAL: No joint swelling or deformity. EXTREMITIES: No cyanosis, clubbing, or pedal edema. NEUROLOGICAL: Gross neurological examination did not reveal any focal deficits. Diffuse weakness SKIN: No rashes. Assessment: Increased weakness with gait dysfunction acute urinary tract infection, present on admission with pain, frequency, and burning with urination, preliminary culture showing gram-negative bacilli Acute metabolic encephalopathy secondary to urinary tract infection History of atrial fibrillation COPD history, not an exacerbation Dementia history Diabetes mellitus, type II GERD Hyperlipidemia Hypertension Obesity with a BMI of 33.3 GI prophylaxis DVT prophylaxis Full code Plan: Recommend to continue with current medications and was admitted with increased weakness PT/OT therapy recommending rehab and family is agreeable. Case management/so cial work following working on [facility] and will require insurance authorization Home medications reviewed and resumed as appropriate Patient is continued on meropenem with infectious disease following an preliminary urine culture showing gram-negative bacilli. Awaiting finalized cultures to determine discharge antibiotics Encouraged increased activity as tolerated Will follow-up on repeat labs in a.m. Patient is having low-grade temps this morning and more lethargic. Continue with Accu-Cheks before meals and at bedtime and sliding scale as needed. The impression and plan of care has been dictated by Sabine Burch, nurse practitioner as directed. Dr. Nadia MD I have performed a history and examination and MDM of this patient, discussed the same with the dictator, and agree with the dictator's assessment and plan as written ,documented as a scribe. Based on total visit time, I have performed more than 50% of the visit. Any additional findings or plans will be noted. Objective - Vital Signs Vital signs: Vital Signs Temp 98.9 F 04/01/23 01:17 Pulse 98 04/01/23 01:17 Resp 18 04/01/23 01:17 BP 172/68 04/01/23 01:17 Pulse Ox 93 L 04/01/23 01:17 FiO2 Intake & Output 03/31/23 03/31/23 04/01/23 06:59 18:59 06:59 Output Total 350 250 300 Balance -350 -250 -300 Output: Urine 350 250 300 Other: Voiding Method External Catheter External Catheter External Catheter # Voids 1 - Labs CBC & Chem 7: 03/31/23 06:34 03/31/23 06:34 Labs: Abnormal Lab Results - Last 24 Hours (Table) 03/31/23 03/31/23 03/31/23 Range/Units 06:16 06:34 06:34 Eosinophils # 0.02 L (0.04-0.35) X 10*3/uL Chloride 110 H (96-109) mmol/L BUN/Creatinine Ratio 25.71 H (12.00-20.00) Ratio Glucose 120 H (70-110) mg/dL POC Glucose (mg/dL) 119 H (70-110) mg/dL 03/31/23 Range/Units 11:32 Eosinophils # (0.04-0.35) X 10*3/uL Chloride (96-109) mmol/L BUN/Creatinine Ratio (12.00-20.00) Ratio Glucose (70-110) mg/dL POC Glucose (mg/dL) 118 H (70-110) mg/dL Microbiology - Last 24 Hours (Table) 03/29/23 18:45 Urine Culture - Final Urine,Voided Escherichia coli
[2023-04-01 06:15] LABS: Glucose,Whole Blood 102 mg/dL (70-110)
[2023-04-01] MEDS: LEVOTHYROXINE 75 MCG TAB PO SCH (06:17)
[2023-04-01] MEDS: INSULIN ASPART (NovoLOG) 100 UNIT/ML VIAL SQ SCH ×4 (06:47→20:53)
[2023-04-01] MEDS: MEMANTINE 10 MG TAB PO SCH ×2 (09:10→19:55)
[2023-04-01] MEDS: PANTOPRAZOLE 40 MG TABLET PO SCH ×2 (09:10→19:55)
[2023-04-01] MEDS: DONEPEZIL 10 MG TAB PO SCH (09:10)
[2023-04-01] MEDS: lisinopriL 5 MG TAB PO SCH ×2 (09:10→19:55)
[2023-04-01] MEDS: LORATADINE 10 MG TAB PO SCH (09:10)
[2023-04-01] MEDS: amLODIPine 10 MG TAB PO SCH (09:10)
[2023-04-01] MEDS: VORTIOXETINE HYDROBROMIDE 20 MG TABLET PO SCH (09:12)
[2023-04-01] MEDS: CYANOCOBALAMIN 500 MCG TAB PO SCH (09:15)
[2023-04-01 11:32] LABS: Basophils # (A) 0.05 X 10*3/uL (0.00-0.10); Basophils % (A) 0.7 %; Eosinophils # (A) 0.08 X 10*3/uL (0.04-0.35); Eosinophils % (A) 1.1 %; HCT 40.5 % (37.2-46.3); HGB 13.3 g/dL (12.0-15.0); Lymphocytes # (A) 0.87 X 10*3/uL (0.90-5.00); Lymphocytes % (A) 12.3 %; MCH 30.9 pg (27.0-32.0); MCHC 32.8 g/dL (32.0-37.0); Mean Platelet Volume 12.4 FL (9.5-12.2); Monocytes # (A) 0.99 X 10*3/uL (0.20-1.00); NRBC Per 100 WBC 0 X 10*3/uL (0.00-0.01); Neutrophils # (A) 5.06 X 10*3/uL (1.80-7.70); Neutrophils % (A) 71.6 %; Platelet Count 182 X 10*3/uL (140-440); RBC 4.31 X 10*6/uL (4.10-5.20); RDW 12.6 % (11.5-14.5); WBC 7.07 X 10*3/uL (4.50-10.00)
[2023-04-01 11:50] LABS: Glucose,Whole Blood 111 mg/dL (70-110)
--- NOTE | 2023-04-01 12:37 | P.PN ---
Subjective Progress Note Date: 04/01/23 Principal diagnosis: Urinary tract infection Patient is a 83-year-old female with a past medical history significant for atrial fibrillation COPD dementia diabetes mellitus hypertension hyperlipidemia patient was brought into the ER for evaluation of weakness. Patient did have a positive UA and a history of recurrent UTI admitted to the hospital for urinary tract infection On today's evaluation that is 04/01/2023, the patient remains to be afebrile, the patient is breathing comfortably on room air and denies any shortness of breath, the patient denies any chest pain or cough , patient denies abdominal pain and no nausea/vomiting or diarrhea Patient did have a white count of 7.07, creatinine 0.7 as of yesterday, urine culture growing E. coli that is a sensitive pathogen Objective - Vital Signs Vital signs: Vital Signs Temp 97.4 F L 04/01/23 07:00 Pulse 70 04/01/23 07:00 Resp 18 04/01/23 08:00 BP 166/68 04/01/23 07:00 Pulse Ox 94 L 04/01/23 07:00 FiO2 Intake & Output 03/31/23 04/01/23 04/01/23 18:59 06:59 18:59 Intake Total 150 Output Total 250 500 Balance -250 -500 150 Intake: Oral 150 Output: Urine 250 500 Other: Voiding Method External Catheter External Catheter External Catheter - Exam GENERAL DESCRIPTION: An elderly female lying in bed in no distress RESPIRATORY SYSTEM: Unlabored breathing , clear to auscultation anteriorly HEART: S1 S2 regular rate and rhythm , ABDOMEN: Soft , no tenderness EXTREMITIES: No edema feet - Labs CBC & Chem 7: 04/01/23 06:52 03/31/23 06:34 Labs: Abnormal Lab Results - Last 24 Hours (Table) 03/31/23 03/31/23 Range/Units 06:34 11:32 Chloride 110 H (96-109) mmol/L BUN/Creatinine Ratio 25.71 H (12.00-20.00) Ratio Glucose 120 H (70-110) mg/dL POC Glucose (mg/dL) 118 H (70-110) mg/dL Microbiology - Last 24 Hours (Table) 03/29/23 18:45 Urine Culture - Final Urine,Voided Escherichia coli Assessment and Plan (1) UTI (urinary tract infection) Current Visit: Yes Status: Acute Code(s): N39.0 - URINARY TRACT INFECTION, SITE NOT SPECIFIED SNOMED Code(s): 15758955 Plan: 1patient presented to hospital with weakness some mental status changes and this patient did have a positive any history of recurrent urine tract infection likely secondary to symptomatic UTI in this patient who has previously grown ESBL pathogen 2-patient has shown clinical improvement urine has been finalized with an E. coli that is a sensitive pathogen we will discontinue meropenem give her a dose of Rocephin will be able to finish therapy with a short course of oral Ceftin on discharge this was discussed with the [facility] OPERATOR for admitting team Dictation was produced using [employer] dictation software. please excuse any grammatical, word or spelling errors. Time with Patient: Less than 30
--- NOTE | 2023-04-01 13:39 | P.PN ---
Subjective Progress Note Date: 04/01/23 This is a 81-year-old female who presented to the emergency department with increasing weakness per family who she resides with and has been progressively becoming more weak over the last few days. Patient follows with Dr. Craig in the outpatient setting with a past medical history of atrial fibrillation, COPD, dementia, diabetes mellitus, GERD, hyperlipidemia, hypertension, osteoarthritis, thyroid issues, frequent urinary tract infections and denies smoking, alcohol, or illicit drug use. Patient had T brain showing no acute process with no bleed and no significant interval change, chest x-ray showed no acute cardiopulmonary process. Labs reviewed and white count was within normal limits hemoglobin was stable and patient was afebrile. Patient had a sodium of 141 with a potassium of 3.5 current BUN 20 with a creatinine which was 0.77. Troponin was negative and urinalysis was done which was mildly positive for leukocyte Estrace. On exam this morning patient reported having burning and pain with frequency during urination and patient is incontinent. Patient normally walks with a walker on occasion in the home although has not been walking. Patient admitted for weakness with concern of possible urinary tract infection. 03/31/2023 Patient is seen and evaluated follow-up and is lethargic although arousable. Patient fatigues very easily and per nursing staff patient has been sleeping most of the morning. Patient having low-grade temps and is maintained on meropenem with infectious disease following awaiting for urine cultures. Preliminary are gram-negative and awaiting finalized cultures to determine discharge antibiotics. PT/OT therapy evaluated recommending rehab inpatient family is agreeable. Case management/social work following working on possibly [facility]. 04/01/2023 Patient is seen and evaluated in follow-up today more awake and alert responding to commands. Patient willing to work with physical therapy today and continues with significant weakness. Plan is for patient to go to [facility] and has been accepted although will require a 3 night hospitalization according to Medicare guidelines. Patient is currently afebrile with no reported chest pain or shortness of breath. Cultures finalized with E. coli with sensitivities and will be transitioned to ceftriaxone and will continue oral Ceftin on discharge for 5 day course per ID recommendations. Encouraged increased activity as tolerated and working with physical therapy daily and encouraged oral intake Review of systems: Constitutional: No reports of fatigue, fever, or chills Cardiovascular: No reports of chest pain or palpitations Respiratory: No reports of shortness of breath or cough GI: No reports of nausea, vomiting, or diarrhea : No reports of dysuria or retention Neurovascular: No reports of weakness or numbness All medications have been reviewed PHYSICAL EXAMINATION: GENERAL: The patient is asleep although easily arousable today, alert and oriented x1 which is her baseline, Well developed, well nourished. Elderly- appearing, obese HEENT: Pupils are round and equally reacting to light. EOMI. no scleral icterus. No conjunctival pallor. Normocephalic, atraumatic. No pharyngeal erythema. No thyromegaly. CARDIOVASCULAR: S1 and S2 muffled PULMONARY: diminished breath sounds bilaterally otherwise clear to auscultation with no wheezing or rhonchi noted. ABDOMEN: soft. Nontender on exam. obese. non-distended, normoactive bowel sounds. No palpable organomegaly. MUSCULOSKELETAL: No joint swelling or deformity. EXTREMITIES: No cyanosis, clubbing, or pedal edema. NEUROLOGICAL: Gross neurological examination did not reveal any focal deficits. Diffuse weakness SKIN: No rashes. Assessment: Increased weakness with gait dysfunction acute urinary tract infection, present on admission with pain, frequency, and burning with urination, cultures finalized showing E. coli Acute metabolic encephalopathy secondary to urinary tract infection, improving History of atrial fibrillation COPD history, not an exacerbation Dementia history Diabetes mellitus, type II GERD Hyperlipidemia Hypertension Obesity with a BMI of 33.3 GI prophylaxis DVT prophylaxis Full code Plan: Recommend to continue with current medications and was admitted with increased weakness PT/OT therapy recommending rehab and family is agreeable. Case management/social work following working on ECF and will require 3 night hospitalization according to Medicare guidelines and [facility] has accepted the patient with possible discharge on 04/02/2023 Home medications reviewed and resumed as appropriate Patient is continued on ceftriaxone per ID recommendations and will go on oral Ceftin 500 mg twice daily for the next 5 days as cultures finalized showing E. coli with sensitivities. Encouraged increased activity as tolerated Continue with Accu-Cheks before meals and at bedtime and sliding scale as needed. The impression and plan of care has been dictated by Sabine Burch, nurse practitioner as directed. Dr. Nadia MD I have performed a history and examination and MDM of this patient, discussed the same with the dictator, and agree with the dictator's assessment and plan as written ,documented as a scribe. Based on total visit time, I have performed more than 50% of the visit. Any additional findings or plans will be noted. Objective - Vital Signs Vital signs: Vital Signs Temp 97.4 F L 04/01/23 07:00 Pulse 70 04/01/23 07:00 Resp 18 04/01/23 08:00 BP 166/68 04/01/23 07:00 Pulse Ox 94 L 04/01/23 07:00 FiO2 Intake & Output 03/31/23 04/01/23 04/01/23 18:59 06:59 18:59 Intake Total 268 Output Total 250 500 Balance -250 -500 268 Intake: Oral 268 Output: Urine 250 500 Other: Voiding Method External Catheter External Catheter External Catheter - Labs CBC & Chem 7: 04/01/23 06:52 03/31/23 06:34 Labs: Abnormal Lab Results - Last 24 Hours (Table) 04/01/23 04/01/23 Range/Units 06:52 11:48 MPV 12.4 H (9.5-12.2) FL Lymphocytes # 0.87 L (0.90-5.00) X 10*3/uL POC Glucose (mg/dL) 111 H (70-110) mg/dL Microbiology - Last 24 Hours (Table) 03/29/23 18:45 Urine Culture - Final Urine,Voided Escherichia coli
[2023-04-01 13:53] LABS: BUN/Creat Ratio 23.86 Ratio (12.00-20.00); Blood Urea Nitrogen 16.7 mg/dL (9.0-27.0); Calcium 9.7 mg/dL (8.7-10.3); Carbon Dioxide 23.3 mmol/L (21.6-31.8); Chloride 109 mmol/L (96-109); Glucose 103 mg/dL (70-110); Potassium 3.8 mmol/L (3.5-5.5); Sodium 142 mmol/L (135-145)
[2023-04-01] MEDS ORDERED: QUEtiapine 25 MG TAB PO PRN (15:33)
[2023-04-01] MEDS ORDERED: METOPROLOL TARTRATE 25 MG TAB PO STA ×2 (17:12→22:10)
[2023-04-01 18:25] LABS: Glucose,Whole Blood 118 mg/dL (70-110)
[2023-04-01] MEDS: PRAVASTATIN SODIUM 80 MG TAB PO SCH (19:55)
[2023-04-01] MEDS: RIVAROXABAN 15 MG TAB PO SCH (19:55)
[2023-04-01 20:45] LABS: Glucose,Whole Blood 148 mg/dL (70-110)
[2023-04-01] MEDS ORDERED: REXULTI (Brexpiprazole) 2 MG Tablet PO SCH (21:00)
[2023-04-02] MEDS: LEVOTHYROXINE 75 MCG TAB PO SCH (05:31)
[2023-04-02 05:34] LABS: Glucose,Whole Blood 131 mg/dL (70-110)
[2023-04-02] MEDS: INSULIN ASPART (NovoLOG) 100 UNIT/ML VIAL SQ SCH ×2 (05:43→12:14)
[2023-04-02 08:25] VITALS: TEMP 98.3
[2023-04-02] MEDS: PANTOPRAZOLE 40 MG TABLET PO SCH (08:31)
[2023-04-02] MEDS: MEMANTINE 10 MG TAB PO SCH (08:31)
[2023-04-02] MEDS: lisinopriL 5 MG TAB PO SCH (08:31)
[2023-04-02] MEDS: DONEPEZIL 10 MG TAB PO SCH (08:31)
[2023-04-02] MEDS: LORATADINE 10 MG TAB PO SCH (08:31)
[2023-04-02] MEDS: VORTIOXETINE HYDROBROMIDE 20 MG TABLET PO SCH (08:32)
[2023-04-02] MEDS: CYANOCOBALAMIN 500 MCG TAB PO SCH (08:37)
[2023-04-02] MEDS ORDERED: DILTIAZEM CD 180 MG CAP.ER.24H PO SCH (09:00)
--- NOTE | 2023-04-02 09:21 | P.CRDCN ---
History of Present Illness History of present illness: HISTORY OF PRESENT ILLNESS: This is a 83-year-old female with a past medical history significant for paroxysmal atrial fibrillation, hypothyroidism, hypertension, hyperlipidemia, and dementia. Patient does not follow with a shank tapper. We have been asked to see the patient in consultation for atrial fibrillation. Patient is admitted to the hospital secondary to increased weakness and urinary tract infection. Patient examined at the bedside. Patient is confused the time of examination. Patient went into A. fib with RVR yesterday evening. She was given oral metoprolol. This morning she converted to sinus mechanism and is maintaining sinus mechanism. She currently denies chest pain or pressure. She reports shortness of breath with exertion. She does report that she occasionally feels her heart racing. Vital signs this morning are stable. * EKG reveals sinus mechanism with no signs of acute ischemia. Repeat EKG reveals atrial fibrillation with RVR * Chest xray negative for acute process * Current home cardiac medications include pravastatin 80 mg at night, amlodipine 10 mg daily, lisinopril 5 mg daily, and Xarelto 15 mg at night * No previous echocardiogram or cardiac catheterization in EMR for review * Patient underwent Lexiscan stress test in May 2019 revealing possible very subtle small area of reversibility along inferior lateral wall base. No other findings of inducible ischemia. REVIEW OF SYSTEMS: At the time of my exam: CONSTITUTIONAL: Denies fever or chills. HEENT: Denies blurred vision, vision changes, or eye pain. Denies hemoptysis CARDIOVASCULAR: Denies chest pain. Denies orthopnea. Denies PND. Denies palpitations RESPIRATORY: Denies shortness of breath. GASTROINTESTINAL: Denies abdominal pain. Denies nausea or vomiting. HEMATOLOGIC: Denies bleeding disorders. GENITOURINARY: Denies any blood in urine. SKIN: Denies pruitis. Denies rash. PHYSICAL EXAM: VITAL SIGNS: Reviewed. GENERAL: Well-developed in no acute distress. HEENT: Head is normocephalic. Pupils are equal, round. Sclerae anicteric. Mucous membranes of the mouth are moist. Neck supple. No JVD or thyromegaly LUNGS: Respirations even and unlabored. Lungs essentially clear to auscultation bilaterally. HEART: Regular rate and rhythm. S1 and S2 heard. Systolic murmur noted ABDOMEN: Soft. Nondistended. Nontender. EXTREMITIES: Normal range of motion. No clubbing or cyanosis. Peripheral p ulses intact. Trace bilateral lower extremity edema NEUROLOGIC: Awake and alert. Oriented x 1. ASSESSMENT: Altered mental status Generalized weakness Acute urinary tract infection Paroxysmal atrial fibrillation, currently maintaining sinus mechanism Hypertension Hyperlipidemia Hypothyroidism Dementia PLAN: Obtain 2-D echo to assess cardiac structure and function Discontinue amlodipine Add Cardizem CD 180 mg daily Continue anticoagulation with Xarelto Continue telemetry monitoring Further recommendations pending patient's course Nurse practitioner note has been reviewed by physician. Signing provider agrees with the documented findings, assessment, and plan of care. 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 Past Anesthesia/Blood Transfusion Reactions: No Reported Reaction Date of Last Stent Placement:: 2017 Past Psychological History: Unable to Obtain, Depression Smoking Status: Former smoker Past Alcohol Use History: None Reported Additional Past Alcohol Use History / Comment(s): quit smoking in the 70's Past Drug Use History: None Reported - Past Family History Daughter(s) Family Medical History: Cancer Father History Unknown: Yes Additional Family Medical History / Comment(s): BRAIN TUMOR Mother Family Medical History: Cancer Medications and Allergies Home Medications Medication Instructions Recorded Confirmed Type Levothyroxine Sodium [Synthroid] 150 mcg PO SUTUWETHSA 09/30/13 03/29/23 History Pravastatin Sodium [Pravachol] 80 mg PO HS 11/07/14 03/29/23 History Multivitamins, Thera [Multivitamin 1 tab PO DAILY 06/01/18 03/29/23 History (formulary)] Ferrous Sulfate [Iron (65 MG 325 mg PO DAILY 06/16/18 03/29/23 History Elemental)] Donepezil [Aricept] 10 mg PO DAILY 06/22/21 03/29/23 History Memantine [Namenda] 10 mg PO BID 06/22/21 03/29/23 History Mirabegron [Myrbetriq] 50 mg PO DAILY 06/22/21 03/29/23 History Sennosides-Docusate Sodium 1 tab PO HS 06/22/21 03/29/23 History [Senokot-S] Cyanocobalamin [Vitamin B-12] 500 mcg PO DAILY 07/16/21 03/29/23 History Rivaroxaban [Xarelto] 15 mg PO HS 07/16/21 03/29/23 History Pantoprazole [Protonix] 40 mg PO BID 02/23/22 03/29/23 History Levothyroxine Sodium [Synthroid] 125 mcg PO MOFR 06/05/22 03/29/23 History Loratadine [Claritin] 10 mg PO DAILY 06/05/22 03/29/23 History Nitroglycerin Sl Tabs [Nitrostat] 0.4 mg SL Q5M PRN 06/05/22 03/29/23 History Vortioxetine Hydrobromide 20 mg PO DAILY 06/05/22 03/29/23 History [Trintellix] amLODIPine [Norvasc] 10 mg PO DAILY 30 Days #30 tab 06/09/22 03/29/23 Rx Methenamine Hippurate 1 gm PO BID 12/24/22 03/29/23 History lisinopriL [Zestril] 5 mg PO DAILY tab 12/30/22 03/29/23 Rx Brexpiprazole [Rexulti] 2 mg PO HS 03/29/23 03/29/23 History Allergies Allergy/AdvReac Type Severity Reaction Status Date / Time azithromycin Allergy Rash/Hives Verified 03/29/23 16:09 [From Zithromax Z-Chau] codeine Allergy Unknown Verified 03/29/23 16:09 hydrochlorothiazide Allergy Unknown Verified 03/29/23 16:09 [From Dyazide] lincomycin HCl Allergy Unknown Verified 03/29/23 16:09 [From Lincocin] meperidine HCl [From Demerol] Allergy Unknown Verified 03/29/23 16:09 metronidazole [From Flagyl] Allergy Unknown Verified 03/29/23 16:09 Metronidazole HCl Allergy Unknown Verified 03/29/23 16:09 [From Flagyl] nitrofurantoin Allergy Confusion Verified 03/29/23 16:09 [From Macrobid] Penicillins Allergy Unknown Verified 03/29/23 16:09 Childhood Nuvzoit-LSX-GhJ Reductase Allergy Unknown Verified 03/29/23 16:09 Inhibitor Sulfa (Sulfonamide Allergy Unknown Verified 03/29/23 16:09 Antibiotics) tetracycline [Tetracycline] Allergy Unknown Verified 03/29/23 16:09 triamterene [From Dyazide] Allergy Unknown Verified 03/29/23 16:09 watermelon Allergy Swelling Verified 03/29/23 16:09 atorvastatin calcium AdvReac MUSCLE Verified 03/29/23 16:09 [From Lipitor] ACHES rosuvastatin calcium AdvReac MUSCLE Verified 03/29/23 16:09 [From Crestor] ACHES Physical Exam Vitals: Vital Signs Temp Pulse Resp BP Pulse Ox 04/02/23 07:30 98.3 F 70 15 152/74 92 L 04/02/23 02:00 98.1 F 75 16 136/76 93 L 04/01/23 20:00 98.1 F 105 H 16 114/63 96 04/01/23 14:50 98.3 F 120 H 18 116/57 95 Intake and Output 04/01/23 04/02/23 04/02/23 22:59 06:59 14:59 Intake Total 118 Output Total 100 800 Balance 18 -800 Intake: Oral 118 Output: Urine 100 800 Other: Voiding Method External Catheter Results 04/01/23 06:52 04/01/23 06:52 CBC 04/01/23 Range/Units 06:52 WBC 7.07 (4.50-10.00) X 10*3/uL RBC 4.31 (4.10-5.20) X 10*6/uL Hgb 13.3 (12.0-15.0) g/dL Hct 40.5 (37.2-46.3) % Plt Count 182 (140-440) X 10*3/uL Comprehensive Metabolic Panel 04/01/23 Range/Units 06:52 Sodium 142 (135-145) mmol/L Potassium 3.8 (3.5-5.5) mmol/L Chloride 109 (96-109) mmol/L Carbon Dioxide 23.3 (21.6-31.8) mmol/L BUN 16.7 (9.0-27.0) mg/dL Creatinine 0.7 (0.6-1.5) mg/dL Glucose 103 (70-110) mg/dL Calcium 9.7 (8.7-10.3) mg/dL Current Medications Generic Name Dose Route Start Last Admin Trade Name Freq PRN Reason Stop Dose Admin Acetaminophen 650 mg 03/29/23 19:00 03/30/23 18:24 Acetaminophen Tab 325 Mg Tab PO 650 mg Q6HR PRN Administration Mild Pain or Fever > 100.5 Cyanocobalamin 500 mcg 03/30/23 09:00 04/02/23 08:37 Cyanocobalamin 500 Mcg Tab PO 500 mcg DAILY LIVAN Administration Dextrose/Water 50 ml 03/30/23 18:40 Dextrose 50% Syringe 50 Ml IVP PER PROTOCOL PRN Hypoglycemia Protocol Diltiazem HCl 180 mg 04/02/23 09:00 04/02/23 08:31 Diltiazem Cd 180 Mg Cap.Er.24h PO 180 mg DAILY LIVAN Administration Donepezil HCl 10 mg 03/30/23 09:00 04/02/23 08:31 Donepezil 10 Mg Tab PO 10 mg DAILY LIVAN Administration Ceftriaxone Sodium 2 gm/ 50 mls @ 100 mls/hr 04/01/23 11:15 04/02/23 08:26 Sodium Chloride IVPB 100 mls/hr Q24HR LIVAN Administration Protocol Insulin Aspart 0 unit 03/30/23 21:00 04/02/23 05:43 Insulin Aspart (Novolog) 100 Unit/Ml Vial SQ Not Given ACHS LIVAN Protocol Levothyroxine Sodium 125 mcg 03/30/23 06:30 03/30/23 05:39 Levothyroxine 125 Mcg Tab PO 125 mcg [id number] LIVAN Administration Levothyroxine Sodium 150 mcg 03/31/23 06:30 04/02/23 05:31 Levothyroxine 75 Mcg Tab PO 150 mcg [id number] LIVAN Administration Lisinopril 5 mg 04/01/23 21:00 04/02/23 08:31 Lisinopril 5 Mg Tab PO 5 mg BID LIVAN Administration Loratadine 10 mg 03/30/23 09:00 04/02/23 08:31 Loratadine 10 Mg Tab PO 10 mg DAILY LIVAN Administration Memantine 10 mg 03/29/23 21:00 04/02/23 08:31 Memantine 10 Mg Tab PO 10 mg BID LIVAN Administration Miscellaneous Information 1 each 03/30/23 09:33 Potassium Replacement Protocol 1 Each Misc MISCELLANE DAILY PRN Per Protocol Protocol Naloxone HCl 0.2 mg 03/29/23 19:00 Naloxone 0.4 Mg/Ml 1 Ml Vial IV Q2M PRN Opioid Reversal Rexulti ( 2 mg 04/01/23 21:00 04/01/23 16:47 Brexpiprazole) 2 Mg PO 2 mg Tablet HS LIVAN Administration Pantoprazole Sodium 40 mg 03/29/23 21:00 04/02/23 08:31 Pantoprazole 40 Mg Tablet PO 40 mg BID LIVAN Administration Pravastatin Sodium 80 mg 03/29/23 21:00 04/01/23 19:55 Pravastatin Sodium 80 Mg Tab PO 80 mg HS LIVAN Administration Quetiapine Fumarate 12.5 mg 04/01/23 15:33 Quetiapine 25 Mg Tab PO HS PRN Agitation Rivaroxaban 15 mg 03/29/23 21:00 04/01/23 19:55 Rivaroxaban 15 Mg Tab PO 15 mg HS LIVAN Administration Protocol Vortioxetine 20 mg 03/30/23 09:00 04/02/23 08:32 Vortioxetine Hydrobromide 20 Mg Tablet PO 20 mg DAILY LIVAN Administration Intake and Output 04/01/23 04/02/23 04/02/23 22:59 06:59 14:59 Intake Total 118 Output Total 100 800 Balance 18 -800 Intake: Oral 118 Output: Urine 100 800 Other: Voiding Method External Catheter 04/01/23 06:52 04/01/23 06:52
[2023-04-02 12:14] LABS: Glucose,Whole Blood 140 mg/dL (70-110)
--- NOTE | 2023-04-02 12:44 | CA ---
Transthoracic Echo Report Name: Cielo Palomino Age: 83 Gender: F : 1940 Exam Date: 04/02/2023 11:06 Exam Location: [place] [facility] Ht (in): 64 Wt (lb): 194 Ordering Physician: Mami Street Attending/Referring Phys: [id number], Yenifer Bin Piler Trang Walker RDCS Procedure CPT: Indications: LV function Cardiac Hx: Technical Quality: Technically difficult study Contrast 1: Definity Total Dose (mL): 2 Contrast 2: Total Dose (mL): MEASUREMENTS (Male / Female) Normal Values 2D ECHO LV Diastolic Diameter PLAX 3.0 cm 4.2 - 5.9 / 3.9 - 5.3 cm LV Systolic Diameter PLAX 2.3 cm IVS Diastolic Thickness 1.9 cm 0.6 - 1.0 / 0.6 - 0.9 cm LVPW Diastolic Thickness 1.8 cm 0.6 - 1.0 / 0.6 - 0.9 cm LV Relative Wall Thickness 1.2 RV Internal Dim ED PLAX 3.1 cm LA Volume 90.5 cm??? 18 - 58 / 22 - 52 cm??? LA Volume Index 44.6 cm???/m??? 16 - 28 cm???/m??? M-MODE Aortic Root Diameter MM 2.8 cm LA Systolic Diameter MM 4.6 cm LA Ao Ratio MM 1.6 DOPPLER AV Peak Velocity 141.8 cm/s AV Peak Gradient 8.0 mmHg AV Mean Velocity 105.7 cm/s AV Mean Gradient 4.8 mmHg AV Velocity Time Integral 28.2 cm LVOT Peak Velocity 106.2 cm/s LVOT Peak Gradient 4.5 mmHg LVOT Velocity Time Integral 21.7 cm MV Area PHT 4.0 cm??? Mitral E Point Velocity 71.3 cm/s Mitral A Point Velocity 117.0 cm/s Mitral E to A Ratio 0.6 MV Deceleration Time 190.3 ms MV E' Velocity 3.8 cm/s Mitral E to MV E' Ratio 18.6 TR Peak Velocity 264.3 cm/s TR Peak Gradient 27.9 mmHg Right Ventricular Systolic Press 32.9 mmHg FINDINGS Left Ventricle Severely increased left ventricular wall thickness. Left ventricular cavity size normal. Normal left ventricular systolic function with no obvious regional wall motion abnormalities. Abnormal left ventricular diastolic filling pattern. Left ventricular ejection fraction is estimated at 55-60 %. Right Ventricle Normal right ventricular size and function. Right ventricular systolic pressure within normal limits. Right Atrium Normal right atrial size. Left Atrium Severely increased left atrial volume. Mildly increased left atrial area. Mitral Valve Structurally normal mitral valve. Mild mitral annular calcification. Mild mitral regurgitation. Aortic Valve Trileaflet aortic valve. No aortic valve stenosis or regurgitation.aortic valve sclerosis. Tricuspid Valve Structurally normal tricuspid valve . Mild tricuspid regurgitation. Pulmonic Valve Pulmonic valve not well visualized. Pericardium No pericardial effusion. Aorta Normal size aortic root and proximal ascending aorta. CONCLUSIONS Technically difficult study. Definity ECHO contrast used for improved visualization of the endocardial borders (inadequate visualization of two or more contiguous segments). Normal left ventricular size and systolic function Mild mitral and tricuspid regurgitation Previewed by: Dr. Sandra Fernandes MD (Electronically Signed) Final Date: 02 April 2023 12:43
--- NOTE | 2023-04-02 13:33 | P.PN ---
Subjective Progress Note Date: 04/02/23 Principal diagnosis: Urinary tract infection Patient is a 83-year-old female with a past medical history significant for atrial fibrillation COPD dementia diabetes mellitus hypertension hyperlipidemia patient was brought into the ER for evaluation of weakness. Patient did have a positive UA and a history of recurrent UTI admitted to the hospital for urinary tract infection On today's evaluation that is 04/02/2023, the patient denies any fever or any chills, the patient is breathing comfortably on room air and no need for supplemental oxygen, the patient denies any chest pain, cough or sputum production, patient denies abdominal pain and no nausea/vomiting and no diarrhea has been reported Patient did have a white count of 7.07, creatinine 0.7 as of yesterday, urine culture growing E. coli that is a sensitive pathogen Objective - Vital Signs Vital signs: Vital Signs Temp 98.3 F 04/02/23 07:30 Pulse 70 04/02/23 07:30 Resp 15 04/02/23 07:30 BP 152/74 04/02/23 07:30 Pulse Ox 92 L 04/02/23 07:30 FiO2 Intake & Output 04/01/23 04/02/23 04/02/23 18:59 06:59 18:59 Intake Total 486 180 Output Total 900 Balance 486 -900 180 Intake: Oral 486 180 Output: Urine 900 Other: Voiding Method External Catheter External Catheter - Exam GENERAL DESCRIPTION: An elderly female lying in bed in no distress RESPIRATORY SYSTEM: Unlabored breathing , clear to auscultation anteriorly HEART: S1 S2 regular rate and rhythm , ABDOMEN: Soft , no tenderness EXTREMITIES: No edema feet - Labs CBC & Chem 7: 04/01/23 06:52 04/01/23 06:52 Labs: Abnormal Lab Results - Last 24 Hours (Table) 04/01/23 04/01/23 04/01/23 Range/Units 06:52 06:52 11:48 MPV 12.4 H (9.5-12.2) FL Lymphocytes # 0.87 L (0.90-5.00) X 10*3/uL BUN/Creatinine Ratio 23.86 H (12.00-20.00) Ratio POC Glucose (mg/dL) 111 H (70-110) mg/dL 04/01/23 04/01/23 04/02/23 Range/Units 18:23 20:44 05:33 MPV (9.5-12.2) FL Lymphocytes # (0.90-5.00) X 10*3/uL BUN/Creatinine Ratio (12.00-20.00) Ratio POC Glucose (mg/dL) 118 H 148 H 131 H (70-110) mg/dL Assessment and Plan (1) UTI (urinary tract infection) Current Visit: Yes Status: Acute Code(s): N39.0 - URINARY TRACT INFECTION, SITE NOT SPECIFIED SNOMED Code(s): 92341365 Plan: 1patient presented to hospital with weakness some mental status changes and this patient did have a positive any history of recurrent urine tract infection likely secondary to symptomatic UTI in this patient who has previously grown ESBL pathogen 2-patient has shown clinical improvement urine has been finalized with an E. coli that is a sensitive pathogen 3-patient to continue with Rocephin while in the patient finishing therapy with a short course of oral Ceftin on discharge Dictation was produced using [employer] dictation software. please excuse any grammatical, word or spelling errors. Time with Patient: Less than 30
--- NOTE | 2023-04-02 14:40 | P.DS ---
Providers Date of admission: 03/30/23 13:36 Expected date of discharge: 04/02/23 Attending physician: Tay Partida MD Consults: 03/30/23 13:38 Consult Physician Urgent Consulting Provider: Cindy Bella Consult Reason/Comments: hx of resistant UTI, hx of esbl Do you want consulting provider notified?: Yes 04/01/23 22:09 Consult Physician Routine Consulting Provider: Sandra Fernandes Consult Reason/Comments: a fib Do you want consulting provider notified?: Yes, Notify in am Primary care physician: Maryann Mckeon Hospital Course: Final diagnosis Discharge disposition Patient is being discharged in a stable condition with guarded prognosis to [facility]. Patient will follow-up with Dr. Mckeon in the outpatient setting upon discharge. Patient is to continue with oral Ceftin twice daily for 5 days. Patient follow-up with cardiology outpatient as scheduled. Total time taken is greater than 35 minutes. Hospital course This is a 83-year-old female who was recently admitted with increased confusion, weakness, concerns for acute urinary tract infection. Patient being closely monitored with infectious disease following as patient has history of ESBL and frequent UTIs and cultures did finalized with E. coli with sensitivities and was transitioned to ceftriaxone and will continue on oral Ceftin 500 mg twice daily for the next 5 days to complete the course. Patient with overall weakness evaluated by physical therapy recommending rehab inpatient family is agreeable. Patient also had atrial fibrillation with RVR with history of atrial fibrillation and was seen and evaluated by cardiology making adjustments to medications and patient is anticoagulated on Xarelto. Patient underwent 2-D echo which showed normal left ventricular size and systolic function mild mitral and tricuspid regurgitation and EF was 55-60%. Patient has no obvious regional wall motion abnormalities. Patient has been cleared by consultations for discharge to [facility] today. Patient has had 3 night hospitalization according to Medicare guidelines and will be going to [facility] today. Currently no reports of chest pain, shortness of breath, or palpitations. Patient is afebrile. No reports of nausea or vomiting and patient is tolerating diet. Patient will be going to [facility] today. Physical exam: Gen: This is a 83-year-old female who is awake, alert and oriented 1-2, baseline, well-developed, well-nourished, obese HEENT: Head is atraumatic, normocephalic. Pupils equal, round. Sclerae is anicteric. NECK: Supple. No JVD. No lymphadenopathy. No thyromegaly. LUNGS: Clear to auscultation. No wheezes or rhonchi. No intercostal retractions. HEART: S1, S2 are muffled, irregular ABDOMEN: Soft. Obese Bowel sounds are present. No masses. No tenderness. EXTREMITIES: No pedal edema. No calf tenderness. NEUROLOGICAL: Patient is awake, alert and oriented x1-2 baseline with dementia. Diffusely weak Please refer to medication reconciliation sheet for a list of medications. The impression and plan of care has been dictated by Sabine Burch, Nurse Practitioner as directed. Dr. Nadia MD I have performed a history and examination and MDM of this patient, discussed the same with the dictator, and agree with the dictator's assessment and plan as written ,documented as a scribe. Based on total visit time, I have performed more than 50% of the visit. Patient Condition at Discharge: Stable Plan - Discharge Summary New Discharge Prescriptions: New Diltiazem Cd [Cardizem CD] 180 mg PO DAILY cap QUEtiapine [SEROquel] 12.5 mg PO HS PRN tab PRN Reason: Agitation Acetaminophen Tab [Tylenol] 650 mg PO Q6HR PRN tab PRN Reason: Mild Pain Or Fever > 100.5 lisinopriL [Zestril] 5 mg PO BID tab cefUROXime axetiL [Ceftin] 500 mg PO BID 5 Days #10 tab Continue Levothyroxine Sodium [Synthroid] 150 mcg PO SUTUWETHSA Pravastatin Sodium [Pravachol] 80 mg PO HS Multivitamins, Thera [Multivitamin (formulary)] 1 tab PO DAILY Ferrous Sulfate [Iron (65 MG Elemental)] 325 mg PO DAILY Donepezil [Aricept] 10 mg PO DAILY Memantine [Namenda] 10 mg PO BID Mirabegron [Myrbetriq] 50 mg PO DAILY Rivaroxaban [Xarelto] 15 mg PO HS Pantoprazole [Protonix] 40 mg PO BID Levothyroxine Sodium [Synthroid] 125 mcg PO MOFR Vortioxetine Hydrobromide [Trintellix] 20 mg PO DAILY Sennosides-Docusate Sodium [Senokot-S] 1 tab PO HS Cyanocobalamin [Vitamin B-12] 500 mcg PO DAILY Loratadine [Claritin] 10 mg PO DAILY Nitroglycerin Sl Tabs [Nitrostat] 0.4 mg SL Q5M PRN PRN Reason: Chest Pain Methenamine Hippurate 1 gm PO BID Brexpiprazole [Rexulti] 2 mg PO HS Discontinued lisinopriL [Zestril] 5 mg PO DAILY tab amLODIPine [Norvasc] 10 mg PO DAILY 30 Days #30 tab Discharge Medication List Levothyroxine Sodium [Synthroid] 150 mcg PO SUTUWETHSA 09/30/13 [History] Pravastatin Sodium [Pravachol] 80 mg PO HS 11/07/14 [History] Multivitamins, Thera [Multivitamin (formulary)] 1 tab PO DAILY 06/01/18 [History] Ferrous Sulfate [Iron (65 MG Elemental)] 325 mg PO DAILY 06/16/18 [History] Donepezil [Aricept] 10 mg PO DAILY 06/22/21 [History] Memantine [Namenda] 10 mg PO BID 06/22/21 [History] Mirabegron [Myrbetriq] 50 mg PO DAILY 06/22/21 [History] Sennosides-Docusate Sodium [Senokot-S] 1 tab PO HS 06/22/21 [History] Cyanocobalamin [Vitamin B-12] 500 mcg PO DAILY 07/16/21 [History] Rivaroxaban [Xarelto] 15 mg PO HS 07/16/21 [History] Pantoprazole [Protonix] 40 mg PO BID 02/23/22 [History] Levothyroxine Sodium [Synthroid] 125 mcg PO MOFR 06/05/22 [History] Loratadine [Claritin] 10 mg PO DAILY 06/05/22 [History] Nitroglycerin Sl Tabs [Nitrostat] 0.4 mg SL Q5M PRN 06/05/22 [History] Vortioxetine Hydrobromide [Trintellix] 20 mg PO DAILY 06/05/22 [History] Methenamine Hippurate 1 gm PO BID 12/24/22 [History] Brexpiprazole [Rexulti] 2 mg PO HS 03/29/23 [History] Acetaminophen Tab [Tylenol] 650 mg PO Q6HR PRN tab 04/02/23 [Rx] Diltiazem Cd [Cardizem CD] 180 mg PO DAILY cap 04/02/23 [Rx] QUEtiapine [SEROquel] 12.5 mg PO HS PRN tab 04/02/23 [Rx] cefUROXime axetiL [Ceftin] 500 mg PO BID 5 Days #10 tab 04/02/23 [Rx] lisinopriL [Zestril] 5 mg PO BID tab 04/02/23 [Rx] Follow up Appointment(s)/Referral(s): Maryann Mckeon DO [Primary Care Provider] - 1-2 days Sancho Luis MD [STAFF PHYSICIAN] - 1 Week Activity/Diet/Wound Care/Special Instructions: Patient is going to [facility] Activity as tolerated Continue heart healthy diabetic diet Continue Ceftin 500 mg twice daily for the next 5 days Follow-up with primary care provider on discharge Follow-up cardiology outpatient Discharge Disposition: TRANSFER TO SNF/ECF
[2023-04-02 14:51] VITALS: BP 168/67; PULSE 87; RESP 16
== END 2023-04-02 16:42 | DRG 689 ==
LOC: EC 14:35 → 6NMEDSUR 19:00 → OBSVTOIN 03-30 13:36
PROVIDERS: ADMIT Internal Medicine; ATTEND Internal Medicine
DX: N39.0 Urinary tract infection, site not specified (principal); G93.41 Metabolic encephalopathy; F03.93 Unspecified dementia, unspecified severity, with mood disturbance; Z20.822 Contact with and (suspected) exposure to COVID-19; R53.1 Weakness; I48.91 Unspecified atrial fibrillation; Z68.33 Body mass index [BMI] 33.0-33.9, adult; E66.9 Obesity, unspecified; I10 Essential (primary) hypertension; E78.5 Hyperlipidemia, unspecified; K21.9 Gastro-esophageal reflux disease without esophagitis; F32.A Depression, unspecified; I48.0 Paroxysmal atrial fibrillation; E03.9 Hypothyroidism, unspecified; Z79.890 Hormone replacement therapy; Z79.01 Long term (current) use of anticoagulants; B96.20 Unspecified Escherichia coli [E. coli] as the cause of diseases classified elsewhere; I25.2 Old myocardial infarction; M81.0 Age-related osteoporosis without current pathological fracture; Z98.51 Tubal ligation status; F03.90 Unspecified dementia, unspecified severity, without behavioral disturbance, psychotic disturbance, mood disturbance, and anxiety; E11.9 Type 2 diabetes mellitus without complications; R32 Unspecified urinary incontinence; I08.1 Rheumatic disorders of both mitral and tricuspid valves; R35.0 Frequency of micturition; Z86.14 Personal history of Methicillin resistant Staphylococcus aureus infection; M19.90 Unspecified osteoarthritis, unspecified site; R26.2 Difficulty in walking, not elsewhere classified; Z87.01 Personal history of pneumonia (recurrent); Z79.899 Other long term (current) drug therapy; Z86.19 Personal history of other infectious and parasitic diseases; Z87.19 Personal history of other diseases of the digestive system; Z87.440 Personal history of urinary (tract) infections; Z90.710 Acquired absence of both cervix and uterus; Z96.641 Presence of right artificial hip joint; Z88.1 Allergy status to other antibiotic agents; Z88.8 Allergy status to other drugs, medicaments and biological substances; Z88.5 Allergy status to narcotic agent; Z88.0 Allergy status to penicillin; Z88.2 Allergy status to sulfonamides
CPT/HCPCS: 36415; 70450; 71046; 80048; 80053; 81001; 83036; 83605; 83735; 84484; 85025; 85610; 85730; 87077; 87086; 87186; 87636; 93005; 93306; 96360; 99285

== ENCOUNTER 2023-04-30 10:32 | Inpatient (IN) | payer MEDICARE, BC ==
[2023-04-30] MEDS ORDERED: ONDANSETRON 4 MG/2 ML VIAL IVP STA (10:52)
[2023-04-30] MEDS ORDERED: SODIUM CHLORIDE 0.9% 500 ML 500 ML IV STA (10:52)
[2023-04-30 10:55] LABS: Glucose,Whole Blood 108 mg/dL (70-110)
--- NOTE | 2023-04-30 11:08 | ED ---
General Adult HPI - General Chief complaint: Fall Stated complaint: Fall, Weakness Time Seen by Provider: 04/30/23 10:40 Source: patient, EMS, RN notes reviewed, old records reviewed Mode of arrival: EMS Limitations: no limitations - History of Present Illness Initial comments: Patient is an 83-year-old female who presents emergency department for weakness, fall. Patient is on a blood thinner, Xarelto. No known loss of consciousness. Patient's legs gave out while giving assistance the bathroom this morning. He has a history of UTIs. Recently was transferred to a rehab facility, but patient has been more weak over the last few days. Patient presents with her son who helps with patient's primary care. Has a history of dementia and is currently at her baseline. Use early anal times one. No focal complaints at this time other than denies abdominal pain. No known sick contacts. No chest pain or coughing. No other acute complaints at this time. Presents for further evaluation at this time. Patient's son is the primary historian. Does not believe patient hit her head or loss consciousness. However patient is on blood thinners. States the patient was ambulated to the bathroom with assist when her legs gave out. She was slowly lowered to the floor. - Related Data Home Medications Medication Instructions Recorded Confirmed Levothyroxine Sodium [Synthroid] 150 mcg PO SUTUWETHSA 09/30/13 04/30/23 Pravastatin Sodium [Pravachol] 80 mg PO HS 11/07/14 04/30/23 Multivitamins, Thera [Multivitamin 1 tab PO DAILY 06/01/18 04/30/23 (formulary)] Ferrous Sulfate [Iron (65 MG 325 mg PO DAILY 06/16/18 04/30/23 Elemental)] Donepezil [Aricept] 10 mg PO DAILY 06/22/21 04/30/23 Memantine [Namenda] 10 mg PO BID 06/22/21 04/30/23 Mirabegron [Myrbetriq] 50 mg PO DAILY 06/22/21 04/30/23 Sennosides-Docusate Sodium 1 tab PO HS 06/22/21 04/30/23 [Senokot-S] Cyanocobalamin [Vitamin B-12] 500 mcg PO DAILY 07/16/21 04/30/23 Rivaroxaban [Xarelto] 15 mg PO HS 07/16/21 04/30/23 Pantoprazole [Protonix] 40 mg PO BID 02/23/22 04/30/23 Levothyroxine Sodium [Synthroid] 125 mcg PO MOFR 06/05/22 04/30/23 Loratadine [Claritin] 10 mg PO DAILY 06/05/22 04/30/23 Nitroglycerin Sl Tabs [Nitrostat] 0.4 mg SL Q5M PRN 06/05/22 04/30/23 Vortioxetine Hydrobromide 20 mg PO DAILY 06/05/22 04/30/23 [Trintellix] Methenamine Hippurate 1 gm PO BID 12/24/22 04/30/23 Brexpiprazole [Rexulti] 2 mg PO HS PRN 03/29/23 04/30/23 lisinopriL [Zestril] 10 mg PO DIRECTED 04/30/23 04/30/23 Previous Rx's Medication Instructions Recorded Acetaminophen Tab [Tylenol] 650 mg PO Q6HR PRN tab 04/02/23 Diltiazem Cd [Cardizem CD] 180 mg PO DAILY cap 04/02/23 lisinopriL [Zestril] 5 mg PO BID tab 04/02/23 Allergies Allergy/AdvReac Type Severity Reaction Status Date / Time azithromycin Allergy Rash/Hives Verified 04/30/23 11:40 [From Zithromax Z-Chau] codeine Allergy Unknown Verified 04/30/23 11:40 hydrochlorothiazide Allergy Unknown Verified 04/30/23 11:40 [From Dyazide] lincomycin HCl Allergy Unknown Verified 04/30/23 11:40 [From Lincocin] meperidine HCl [From Demerol] Allergy Unknown Verified 04/30/23 11:40 metronidazole [From Flagyl] Allergy Unknown Verified 04/30/23 11:40 Metronidazole HCl Allergy Unknown Verified 04/30/23 11:40 [From Flagyl] nitrofurantoin Allergy Confusion Verified 04/30/23 11:40 [From Macrobid] Penicillins Allergy Unknown Verified 04/30/23 11:40 Childhood Gaedgcw-FNA-DpC Reductase Allergy Unknown Verified 04/30/23 11:40 Inhibitor Sulfa (Sulfonamide Allergy Unknown Verified 04/30/23 11:40 Antibiotics) tetracycline [Tetracycline] Allergy Unknown Verified 04/30/23 11:40 triamterene [From Dyazide] Allergy Unknown Verified 04/30/23 11:40 watermelon Allergy Swelling Verified 04/30/23 11:40 atorvastatin calcium AdvReac MUSCLE Verified 04/30/23 11:40 [From Lipitor] ACHES rosuvastatin calcium AdvReac MUSCLE Verified 04/30/23 11:40 [From Crestor] ACHES Review of Systems ROS Statement: Those systems with pertinent positive or pertinent negative responses have been documented in the HPI. Review of Systems: CONST: Denies fever EYES: Denies blurry vision ENT: Denies nasal congestion C/V: Denies Chest pain RESP: Denies shortness of breath GI: Endorses generalized abdominal discomfort : Denies dysuria SKIN: Denies rash. MSK: Denies joint pain. NEURO: Denies headache ROS Other: All systems not noted in ROS Statement are negative. 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 Past Anesthesia/Blood Transfusion Reactions: No Reported Reaction Date of Last Stent Placement:: 2017 Past Psychological History: Unable to Obtain, Depression Smoking Status: Former smoker Past Alcohol Use History: None Reported Past Drug Use History: None Reported - Past Family History Daughter(s) Family Medical History: Cancer Father History Unknown: Yes Additional Family Medical History / Comment(s): BRAIN TUMOR Mother Family Medical History: Cancer General Exam - General Exam Comments Initial Comments: General: Appears in no acute distress. HEAD: Normal with no signs of head trauma. EYES: PERRLA, EOMI, conjunctiva normal, no discharge. Pupils 3 mm and equal bilaterally. ENT: Hearing grossly intact, normal oropharynx. RESPIRATORY: Clear breath sounds bilaterally. No wheezes, rales, or rhonchi. C/V: Regular rate and rhythm. S1 and S2 auscultated, peripheral pulses 2+ and intact throughout ABD: Abdomen is soft, nondistended. No focal tenderness to palpation. No g uarding. No rebound tenderness. No peritoneal signs. EXT: Normal range of motion, no obvious deformity. Pelvis is stable. Spine is non-tender to palpation. SKIN: No rashes or lesions observed on exposed skin. NEURO: Alert and oriented 1 which is the patient's baseline. Moving all 4 extremities. Limitations: no limitations Course Vital Signs 04/30/23 10:34 Temperature 98.0 F Pulse Rate 60 Respiratory 18 Rate Blood Pressure 172/57 O2 Sat by Pulse 96 Oximetry Medical Decision Making - Medical Decision Making Was pt. sent in by a medical professional or institution (, PA, MATERIAL HANDLING WAREHOUSE SUPERVISOR, urgent care, hospital, or detention...) When possible be specific @ -No Did you speak to anyone other than the patient for history (EMS, parent, family, police, friend...)? What history was obtained from this source @ -Patient's son is the primary historian for the patient. Did you review nursing and triage notes (agree or disagree)? Why? @ -I reviewed and agree with nursing and triage notes Were old charts reviewed (outside hosp., previous admission, EMS record, old EKG, old radiological studies, urgent care reports/EKG's, detention records)? Report findings @ -Old charts reviewed Differential Diagnosis (chest pain, altered mental status, abdominal pain women, abdominal pain men, vaginal bleeding, weakness, fever, dyspnea, syncope, headache, dizziness, GI bleed, back pain, seizure, CVA, palpatations, mental health, musculoskeletal)? @ -Differential Weakness: Hypoglycemia, shock, sepsis, hyponatremia, anemia, infection, CA, ETOH, adverse medicine reaction, overdose, stroke, this is not meant to be an all-inclusive list. EKG interpreted by me (3pts min.). @ -As above X-rays interpreted by me (1pt min.). @ -Chest x-ray shows no obvious acute cardiopulmonary process. CT interpreted by me (1pt min.). @ -CT brain reveals no obvious acute intracranial process. CT abdomen and pelvis reveals no obvious acute intra-abdominal process. U/S interpreted by me (1pt. min.). @ -None done What testing was considered but not performed or refused? (CT, X-rays, U/S, labs)? Why? @ -None What meds were considered but not given or refused? Why? @ -None Did you discuss the management of the patient with other professionals (professionals i.e. , PA, MATERIAL HANDLING WAREHOUSE SUPERVISOR, lab, RT, psych nurse, social worker clinical, electric sign wirer, teacher, access control officer, pillowcase cleaner)? Give summary @ -No Was smoking cessation discussed for >3mins.? @ -No Was critical care preformed (if so, how long)? @ -No Were there social determinants of health that impacted care today? How? (Homelessness, low income, unemployed, alcoholism, drug addiction, transportation, low edu. Level, literacy, decrease access to med. care, care home, rehab)? @ -No Was there de-escalation of care discussed even if they declined (Discuss DNR or withdrawal of care, Hospice)? DNR status @ -No What co-morbidities impacted this encounter? (DM, HTN, Smoking, COPD, CAD, Cancer, CVA, ARF, Chemo, Hep., AIDS, mental health diagnosis, sleep apnea, morbid obesity)? @ -Dementia, baseline alert and oriented times one Was patient admitted / discharged? Hospital course, mention meds given and route, prescriptions, significant lab abnormalities, going to OR and other pertinent info. @ -Based on the patient's presentation and physical exam, presents with weakness. 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 Patient and son are in agreement this plan. Vital signs of any supple limits. She'll be given a 500 mL fluid bolus, IV Zofran. There were in agreement this plan. Patient is resting comfortably at this time. EKG shows no signs of acute ischemia.Imaging unremarkable. Labs are remarkable for a urinary tract infection. Urine culture sent. After the patient as well as her son who is her primary caregiver. He feels uncomfortable taking the patient home as patient has been more weak than her baseline and is a fall risk. Patient is on blood thinners. We will admit the patient to observation for IV fluids, IV antibiotics. They we re in agreement this plan. I spoke with the admitting team, Dr. Linton who accepted the patient. Undiagnosed new problem with uncertain prognosis? @ -No Drug Therapy requiring intensive monitoring for toxicity (Heparin, Nitro, Insulin, Cardizem)? @ -No Were any procedures done? @ -No Diagnosis/symptom? @ -UTI, weakness Acute, or Chronic, or Acute on Chronic? @ -Acute Uncomplicated (without systemic symptoms) or Complicated (systemic symptoms)? @ -Complicated Side effects of treatment? @ -none Exacerbation, Progression, or Severe Exacerbation] @ -no Poses a threat to life or bodily function? @ -Possibly, yes - Lab Data Result diagrams: 04/30/23 10:56 04/30/23 10:56 Lab Results 04/30/23 04/30/23 04/30/23 Range/Units 10:53 10:56 10:56 WBC 5.6 (3.8-10.6) k/uL RBC 4.35 (3.80-5.40) m/uL Hgb 13.5 (11.4-16.0) gm/dL Hct 40.1 (34.0-46.0) % MCV 92.2 (80.0-100.0) fL MCH 31.1 (25.0-35.0) pg MCHC 33.7 (31.0-37.0) g/dL RDW 13.8 (11.5-15.5) % Plt Count 143 L (150-450) k/uL MPV 10.2 Neutrophils % 73 % Lymphocytes % 15 % Monocytes % 8 % Eosinophils % 2 % Basophils % 1 % Neutrophils # 4.1 (1.3-7.7) k/uL Lymphocytes # 0.8 L (1.0-4.8) k/uL Monocytes # 0.5 (0-1.0) k/uL Eosinophils # 0.1 (0-0.7) k/uL Basophils # 0.0 (0-0.2) k/uL PT 11.3 (10.0-12.5) sec INR 1.0 (<1.2) APTT 32.7 H (22.0-30.0) sec Sodium (137-145) mmol/L Potassium (3.5-5.1) mmol/L Chloride (98-107) mmol/L Carbon Dioxide (22-30) mmol/L Anion Gap mmol/L BUN (7-17) mg/dL Creatinine (0.52-1.04) mg/dL Est GFR (CKD-EPI)AfAm (>60 ml/min/1.73 sqM) Est GFR (CKD-EPI)NonAf (>60 ml/min/1.73 sqM) Glucose (74-99) mg/dL POC Glucose (mg/dL) 108 (70-110) mg/dL POC Glu [place] Tender ID Belval, Lisa Plasma Lactic Acid Ankit (0.7-2.0) mmol/L Calcium (8.4-10.2) mg/dL Magnesium (1.6-2.3) mg/dL Total Bilirubin (0.2-1.3) mg/dL AST (14-36) U/L ALT (4-34) U/L Alkaline Phosphatase (38-126) U/L Total Protein (6.3-8.2) g/dL Albumin (3.5-5.0) g/dL Urine Color Urine Appearance (Clear) Urine pH (5.0-8.0) Ur Specific [place] (1.001-1.035) Urine Protein (Negative) Urine Glucose (UA) (Negative) Urine Ketones (Negative) Urine Blood (Negative) Urine Nitrite (Negative) Urine Bilirubin (Negative) Urine Urobilinogen (<2.0) mg/dL Ur Leukocyte Esterase (Negative) Urine RBC (0-5) /hpf Urine WBC (0-5) /hpf Ur Squamous Epith Cells (0-4) /hpf Urine Bacteria (None) /hpf Urine Mucus (None) /hpf Influenza Type A (PCR) (Not Detectd) Influenza Type B (PCR) (Not Detectd) RSV (PCR) (Not Detectd) SARS-CoV-2 (PCR) (Not Detectd) 04/30/23 04/30/23 04/30/23 Range/Units 10:56 10:56 10:56 WBC (3.8-10.6) k/uL RBC (3.80-5.40) m/uL Hgb (11.4-16.0) gm/dL Hct (34.0-46.0) % MCV (80.0-100.0) fL MCH (25.0-35.0) pg MCHC (31.0-37.0) g/dL RDW (11.5-15.5) % Plt Count (150-450) k/uL MPV Neutrophils % % Lymphocytes % % Monocytes % % Eosinophils % % Basophils % % Neutrophils # (1.3-7.7) k/uL Lymphocytes # (1.0-4.8) k/uL Monocytes # (0-1.0) k/uL Eosinophils # (0-0.7) k/uL Basophils # (0-0.2) k/uL PT (10.0-12.5) sec INR (<1.2) APTT (22.0-30.0) sec Sodium 139 (137-145) mmol/L Potassium 4.5 (3.5-5.1) mmol/L Chloride 108 H (98-107) mmol/L Carbon Dioxide 27 (22-30) mmol/L Anion Gap 4 mmol/L BUN 18 H (7-17) mg/dL Creatinine 0.74 (0.52-1.04) mg/dL Est GFR (CKD-EPI)AfAm 87 (>60 ml/min/1.73 sqM) Est GFR (CKD-EPI)NonAf 76 (>60 ml/min/1.73 sqM) Glucose 100 H (74-99) mg/dL POC Glucose (mg/dL) (70-110) mg/dL POC Glu [place] Tender ID Plasma Lactic Acid Ankit 0.9 (0.7-2.0) mmol/L Calcium 9.5 (8.4-10.2) mg/dL Magnesium 2.0 (1.6-2.3) mg/dL Total Bilirubin 1.0 (0.2-1.3) mg/dL AST 28 (14-36) U/L ALT 14 (4-34) U/L Alkaline Phosphatase 75 (38-126) U/L Total Protein 6.7 (6.3-8.2) g/dL Albumin 3.5 (3.5-5.0) g/dL Urine Color Light [place] Urine Appearance Cloudy H (Clear) Urine pH 6.0 (5.0-8.0) Ur Specific [place] 1.030 (1.001-1.035) Urine Protein 2+ H (Negative) Urine Glucose (UA) Negative (Negative) Urine Ketones Negative (Negative) Urine Blood Small H (Negative) Urine Nitrite Positive H (Negative) Urine Bilirubin 1+ H (Negative) Urine Urobilinogen 0.2 (<2.0) mg/dL Ur Leukocyte Esterase Moderate H (Negative) Urine RBC 38 H (0-5) /hpf Urine WBC >182 H (0-5) /hpf Ur Squamous Epith Cells 8 H (0-4) /hpf Urine Bacteria Many H (None) /hpf Urine Mucus Many H (None) /hpf Influenza Type A (PCR) (Not Detectd) Influenza Type B (PCR) (Not Detectd) RSV (PCR) (Not Detectd) SARS-CoV-2 (PCR) (Not Detectd) 04/30/23 Range/Units 10:56 WBC (3.8-10.6) k/uL RBC (3.80-5.40) m/uL Hgb (11.4-16.0) gm/dL Hct (34.0-46.0) % MCV (80.0-100.0) fL MCH (25.0-35.0) pg MCHC (31.0-37.0) g/dL RDW (11.5-15.5) % Plt Count (150-450) k/uL MPV Neutrophils % % Lymphocytes % % Monocytes % % Eosinophils % % Basophils % % Neutrophils # (1.3-7.7) k/uL Lymphocytes # (1.0-4.8) k/uL Monocytes # (0-1.0) k/uL Eosinophils # (0-0.7) k/uL Basophils # (0-0.2) k/uL PT (10.0-12.5) sec INR (<1.2) APTT (22.0-30.0) sec Sodium (137-145) mmol/L Potassium (3.5-5.1) mmol/L Chloride (98-107) mmol/L Carbon Dioxide (22-30) mmol/L Anion Gap mmol/L BUN (7-17) mg/dL Creatinine (0.52-1.04) mg/dL Est GFR (CKD-EPI)AfAm (>60 ml/min/1.73 sqM) Est GFR (CKD-EPI)NonAf (>60 ml/min/1.73 sqM) Glucose (74-99) mg/dL POC Glucose (mg/dL) (70-110) mg/dL POC Glu [place] Tender ID Plasma Lactic Acid Ankit (0.7-2.0) mmol/L Calcium (8.4-10.2) mg/dL Magnesium (1.6-2.3) mg/dL Total Bilirubin (0.2-1.3) mg/dL AST (14-36) U/L ALT (4-34) U/L Alkaline Phosphatase (38-126) U/L Total Protein (6.3-8.2) g/dL Albumin (3.5-5.0) g/dL Urine Color Urine Appearance (Clear) Urine pH (5.0-8.0) Ur Specific [place] (1.001-1.035) Urine Protein (Negative) Urine Glucose (UA) (Negative) Urine Ketones (Negative) Urine Blood (Negative) Urine Nitrite (Negative) Urine Bilirubin (Negative) Urine Urobilinogen (<2.0) mg/dL Ur Leukocyte Esterase (Negative) Urine RBC (0-5) /hpf Urine WBC (0-5) /hpf Ur Squamous Epith Cells (0-4) /hpf Urine Bacteria (None) /hpf Urine Mucus (None) /hpf Influenza Type A (PCR) Not Detected (Not Detectd) Influenza Type B (PCR) Not Detected (Not Detectd) RSV (PCR) Not Detected (Not Detectd) SARS-CoV-2 (PCR) Not Detected (Not Detectd) - EKG Data -: EKG Interpreted by Me EKG Comments: 12-lead Electrocardiogram Interpretation Note EKG was reviewed and interpreted by myself. 12-lead ECG performed at 1040 is interpreted by me as revealing sinus bradycardia at a rate of 59 beats per minute. [place] is normal. IA interval is 178 ms, QRS duration is 86 ms, QTc is 387 ms.. There were no ST or T wave abnormalities to suggest myocardial ischemi a or injury. R wave progression across the precordium was satisfactory. By my interpretation this EKG is non-diagnostic for acute ischemia. Disposition Clinical Impression: Weakness, UTI (urinary tract infection) Disposition: ADMITTED IP TO THIS HOSP Condition: Stable Referrals: Maryann Craig DO [Primary Care Provider] - 1-2 days Time of Disposition: 12:55
[2023-04-30 11:13] LABS: Basophils % (A) 1 %; Eosinophils # (A) 0.1 k/uL (0-0.7); Eosinophils % (A) 2 %; HCT 40.1 % (34.0-46.0); HGB 13.5 gm/dL (11.4-16.0); Lymphocytes # (A) 0.8 k/uL (1.0-4.8); Lymphocytes % (A) 15 %; MCH 31.1 pg (25.0-35.0); MCHC 33.7 g/dL (31.0-37.0); MCV 92.2 fL (80.0-100.0); Mean Platelet Volume 10.2; Monocytes # (A) 0.5 k/uL (0-1.0); Monocytes % (A) 8 %; Neutrophils # (A) 4.1 k/uL (1.3-7.7); Neutrophils % (A) 73 %; Platelet Count 143 k/uL (150-450); RBC 4.35 m/uL (3.80-5.40); RDW 13.8 % (11.5-15.5); WBC 5.6 k/uL (3.8-10.6)
[2023-04-30 11:22] LABS: ALT 14 U/L (4-34); African American GFR (CKD) 87 (>60 ml/min/1.73 sqM); Anion Gap 4 mmol/L; Blood Urea Nitrogen 18 mg/dL (7-17); Calcium 9.5 mg/dL (8.4-10.2); Carbon Dioxide 27 mmol/L (22-30); Chloride 108 mmol/L (98-107); Glucose 100 mg/dL (74-99); Non-African American GFR(CKD) 76 (>60 ml/min/1.73 sqM); Sodium 139 mmol/L (137-145)
[2023-04-30 11:26] LABS: Partial Thromboplastin Time 32.7 sec (22.0-30.0); Prothrombin Time 11.3 sec (10.0-12.5)
[2023-04-30 11:32] LABS: AST 28 U/L (14-36); Albumin 3.5 g/dL (3.5-5.0); Alkaline Phosphatase 75 U/L (38-126); Potassium 4.5 mmol/L (3.5-5.1); Total Protein 6.7 g/dL (6.3-8.2)
--- NOTE | 2023-04-30 11:42 | XR ---
EXAMINATION TYPE: XR chest 2V DATE OF EXAM: 04/30/2023 COMPARISON: Chest x-ray March 29, 2023 HISTORY: Weakness. TECHNIQUE: Frontal and lateral views of the chest are obtained. FINDINGS: There is some chronic parenchymal changes bilaterally without suspicious new focal air spa ce opacity, pleural effusion, or pneumothorax seen. The cardiac silhouette size is stable and mildly enlarged. The osseous structures are intact. IMPRESSION: Mild cardiomegaly without acute pulmonary process. No significant change from prior.
[2023-04-30 12:05] LABS: Appearance,Urine Cloudy (Clear); Bilirubin,Urine 1+ (Negative); Color,Urine Light Orange; Glucose,Urine (UA) Negative (Negative); Ketones,Urine Negative (Negative); Protein,Urine 2+ (Negative)
[2023-04-30 12:06] LABS: Blood,Urine Small (Negative); Leukocyte Esterase,Urine Moderate (Negative); Nitrite,Urine Positive (Negative); Urobilinogen,Urine 0.2 mg/dL (<2.0)
[2023-04-30 12:13] LABS: Bacteria,Urine Many /hpf; Mucus,Urine Many /hpf; RBC,Urine 38 /hpf (0-5); Squamous Epithelial Cell,Urine 8 /hpf (0-4); WBC,Urine >182 /hpf (0-5)
--- NOTE | 2023-04-30 12:37 | CT ---
EXAMINATION TYPE: CT brain wo con DATE OF EXAM: 04/30/2023 HISTORY: Weakness, fall. CT DLP: 1109.4 mGycm. Automated Exposure Control for Dose Reduction was Utilized. TECHNIQUE: CT scan of the head is performed without contrast. COMPARISON: Prior CT brain March 29, 2023. FINDINGS: There is no acute intracranial hemorrhage or midline shift identified. There is mild to m oderate diffuse ventricular and sulcal prominence redemonstrated. There is [id number]-[id number] low-atte nuation in the periventricular white matter redemonstrated. The calvarium is intact. The globes are i ntact and the visualized sinuses are clear. IMPRESSION: No acute intracranial hemorrhage or midline shift. No significant change from most recen t prior CT.
--- NOTE | 2023-04-30 12:46 | CT ---
EXAMINATION TYPE: CT abdomen pelvis w con DATE OF EXAM: 04/30/2023 HISTORY: Generalized abdominal pain CT DLP: 1920.5mGycm Automated Exposure Control for Dose Reduction was Utilized. CONTRAST: CT scan of the abdomen and pelvis is performed without oral but with IV Contrast, patient injected wi th 100 mL of Isovue 300. COMPARISON: Prior CT December 26, 2022 FINDINGS: LUNG BASES: Coronary artery calcification is noted. Trace bilateral pleural effusions on current stud y. LIVER/GB: Small dependent low dense gallstones redemonstrated. No new surrounding fluid or fat stran ding. PANCREAS: No significant abnormality is seen. SPLEEN: Persistent 1.7 cm oval low dense lesion in the spleen favoring benign etiology. ADRENALS: No significant abnormality is seen. KIDNEYS: No significant abnormality is seen. BOWEL: Suboptimal evaluation without enteric contrast. Stomach poorly distended and suboptimally eval uated. No abnormal small or large bowel dilatation. Distal colonic diverticula in the sigmoid colon. Surgical sutures from partial proximal colectomy are redemonstrated. UTERUS/ADNEXA: Uterus is surgically absent. LYMPH NODES: No greater than 1cm abdominal or pelvic lymph nodes are appreciated. OSSEOUS STRUCTURES: Metallic hardware from right hip surgery redemonstrated causing streak artifact s omewhat limiting evaluation of pelvic structures. Multilevel facet arthropathy in the lumbar spine. OTHER: Moderate to severe calcified plaque of the aorta extends into branch vessels. IMPRESSION: No significant new or acute finding is seen to account for patient's clinical symptoms.
[2023-04-30] MEDS ORDERED: ONDANSETRON 4 MG/2 ML VIAL IVP PRN (13:04)
[2023-04-30] MEDS ORDERED: NALOXONE 0.4 MG/ML 1 ML VIAL IV PRN (13:04)
[2023-04-30] MEDS: SODIUM CHLORIDE 0.9% 1,000 ML IV SCH (14:06)
[2023-04-30] MEDS ORDERED: ACETAMINOPHEN TAB 325 MG TAB PO PRN (14:30)
--- NOTE | 2023-04-30 14:57 | P.HPIM ---
History of Present Illness H&P Date: 04/30/23 Chief Complaint: Generalized weakness, failure to thrive * 83-year-old patient with past medical history significant for paroxysmal atrial fibrillation, hypertension, hyperlipidemia, I put thyroid history of dementia presents to the emergency department with recurrent persistent weakness. Patient was recently admitted discharge on 04/02/2023 admitted for urinary tract infection and weakness. During previous hospitalization patient was also seen by cardiology secondary to A. fib and rapid ventricular response. Cardiac medications optimized * Patient presents back to the emergency department with weakness and fall. Patient lies care about while in the bathroom. Patient does have history of recurrent UTIs patient was brought in by son who is primary caregiver is well. Patient was ambulated to the bathroom with assistance when her leg gave out and she was slowly lowered to the floor * Workup in ER included a chest x-ray which showed cardiomegaly without acute process, CT brain was obtained which was negative for acute intracranial mass. * CT abdomen and pelvis was obtained which was negative for acute finding, metallic hardware from right hip surgery was redemonstrated degenerative changes noted in lumbar spine coronary artery calcification noted trace bilat eral pleural effusion noted * Blood work obtained in ER include CBC which were WBC 5.6, with 13.5 platelet 143 * Serum chemistry showed sodium 139 potassium 4.5 chloride 108B UN 18 creatinine 0.74 glucose 100 * Urinalysis is obtained showed significant WBC, moderate leukocyte Estrace positive nitrite * Patient started on fluid resuscitation started on IV Rocephin and will be admitted to medical floor for further management REVIEW OF SYSTEMS: Generalized weakness, fall CONSTITUTIONAL: No fever, no malaise, no fatigue. HEENT: No recent visual problems or hearing problems. Denied any sore throat. CARDIOVASCULAR: No chest pain, orthopnea, PND, no palpitations, no syncope. PULMONARY: No shortness of breath, no cough, no hemoptysis. GASTROINTESTINAL: No diarrhea, no nausea, no vomiting, no abdominal pain. NEUROLOGICAL: No headaches, no weakness, no numbness. HEMATOLOGICAL: Denies any bleeding or petechiae. GENITOURINARY: Denies any burning micturition, frequency, or urgency. MUSCULOSKELETAL/RHEUMATOLOGICAL: Generalized weakness, fall ENDOCRINE: Denies any polyuria or polydipsia. PHYSICAL EXAMINATION: GENERAL: The patient is alert and oriented x3, generalized global weakness chronically ill appearance HEENT: Pupils are round and equally reacting to light. EOMI. CARDIOVASCULAR: S1 and S2 present. No murmurs, rubs, or gallops. PULMONARY: Chest is clear to auscultation, no wheezing or crackles. ABDOMEN: Soft, nontender, nondistended, normoactive bowel sounds. No palpable organomegaly. MUSCULOSKELETAL: No joint swelling or deformity. EXTREMITIES: No cyanosis, clubbing, or pedal edema. NEUROLOGICAL: Gross neurological examination did not reveal any focal deficits. 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 Past Anesthesia/Blood Transfusion Reactions: No Reported Reaction Date of Last Stent Placement:: 2017 Past Psychological History: Unable to Obtain, Depression Smoking Status: Former smoker Past Alcohol Use History: None Reported Past Drug Use History: None Reported - Past Family History Daughter(s) Family Medical History: Cancer Father History Unknown: Yes Additional Family Medical History / Comment(s): BRAIN TUMOR Mother Family Medical History: Cancer Medications and Allergies Home Medications Medication Instructions Recorded Confirmed Type Levothyroxine Sodium [Synthroid] 150 mcg PO SUTUWETHSA 09/30/13 04/30/23 History Pravastatin Sodium [Pravachol] 80 mg PO HS 11/07/14 04/30/23 History Multivitamins, Thera [Multivitamin 1 tab PO DAILY 06/01/18 04/30/23 History (formulary)] Ferrous Sulfate [Iron (65 MG 325 mg PO DAILY 06/16/18 04/30/23 History Elemental)] Donepezil [Aricept] 10 mg PO DAILY 06/22/21 04/30/23 History Memantine [Namenda] 10 mg PO BID 06/22/21 04/30/23 History Mirabegron [Myrbetriq] 50 mg PO DAILY 06/22/21 04/30/23 History Sennosides-Docusate Sodium 1 tab PO HS 06/22/21 04/30/23 History [Senokot-S] Cyanocobalamin [Vitamin B-12] 500 mcg PO DAILY 07/16/21 04/30/23 History Rivaroxaban [Xarelto] 15 mg PO HS 07/16/21 04/30/23 History Pantoprazole [Protonix] 40 mg PO BID 02/23/22 04/30/23 History Levothyroxine Sodium [Synthroid] 125 mcg PO MOFR 06/05/22 04/30/23 History Loratadine [Claritin] 10 mg PO DAILY 06/05/22 04/30/23 History Nitroglycerin Sl Tabs [Nitrostat] 0.4 mg SL Q5M PRN 06/05/22 04/30/23 History Vortioxetine Hydrobromide 20 mg PO DAILY 06/05/22 04/30/23 History [Trintellix] Methenamine Hippurate 1 gm PO BID 12/24/22 04/30/23 History Brexpiprazole [Rexulti] 2 mg PO HS PRN 03/29/23 04/30/23 History Acetaminophen Tab [Tylenol] 650 mg PO Q6HR PRN tab 04/02/23 04/30/23 Rx Diltiazem Cd [Cardizem CD] 180 mg PO DAILY cap 04/02/23 04/30/23 Rx lisinopriL [Zestril] 5 mg PO BID tab 04/02/23 04/30/23 Rx lisinopriL [Zestril] 10 mg PO DIRECTED 04/30/23 04/30/23 History Allergies Allergy/AdvReac Type Severity Reaction Status Date / Time azithromycin Allergy Rash/Hives Verified 04/30/23 11:40 [From Zithromax Z-Chau] codeine Allergy Unknown Verified 04/30/23 11:40 hydrochlorothiazide Allergy Unknown Verified 04/30/23 11:40 [From Dyazide] lincomycin HCl Allergy Unknown Verified 04/30/23 11:40 [From Lincocin] meperidine HCl [From Demerol] Allergy Unknown Verified 04/30/23 11:40 metronidazole [From Flagyl] Allergy Unknown Verified 04/30/23 11:40 Metronidazole HCl Allergy Unknown Verified 04/30/23 11:40 [From Flagyl] nitrofurantoin Allergy Confusion Verified 04/30/23 11:40 [From Macrobid] Penicillins Allergy Unknown Verified 04/30/23 11:40 Childhood Tjptjir-[id number]-[id number] Reductase Allergy Unknown Verified 04/30/23 11:40 Inhibitor Sulfa (Sulfonamide Allergy Unknown Verified 04/30/23 11:40 Antibiotics) tetracycline [Tetracycline] Allergy Unknown Verified 04/30/23 11:40 triamterene [From Dyazide] Allergy Unknown Verified 04/30/23 11:40 watermelon Allergy Swelling Verified 04/30/23 11:40 atorvastatin calcium AdvReac MUSCLE Verified 04/30/23 11:40 [From Lipitor] ACHES rosuvastatin calcium AdvReac MUSCLE Verified 04/30/23 11:40 [From Crestor] ACHES Physical Exam Vitals: Vital Signs Temp Pulse Resp BP Pulse Ox 04/30/23 13:29 64 170/66 99 04/30/23 10:34 98.0 F 60 18 172/57 96 Intake and Output 04/29/23 04/30/23 04/30/23 22:59 06:59 14:59 Output Total 50 Balance -50 Output: Urine 50 Straight 50 Other: Weight 88.451 kg Results CBC & Chem 7: 04/30/23 10:56 04/30/23 10:56 Labs: Abnormal Lab Results - Last 24 Hours (Table) 04/30/23 04/30/23 04/30/23 Range/Units 10:56 10:56 10:56 Plt Count 143 L (150-450) k/uL Lymphocytes # 0.8 L (1.0-4.8) k/uL APTT 32.7 H (22.0-30.0) sec Chloride 108 H (98-107) mmol/L BUN 18 H (7-17) mg/dL Glucose 100 H (74-99) mg/dL Urine Appearance (Clear) Urine Protein (Negative) Urine Blood (Negative) Urine Nitrite (Negative) Urine Bilirubin (Negative) Ur Leukocyte Esterase (Negative) Urine RBC (0-5) /hpf Urine WBC (0-5) /hpf Ur Squamous Epith Cells (0-4) /hpf Urine Bacteria (None) /hpf Urine Mucus (None) /hpf 04/30/23 Range/Units 10:56 Plt Count (150-450) k/uL Lymphocytes # (1.0-4.8) k/uL APTT (22.0-30.0) sec Chloride (98-107) mmol/L BUN (7-17) mg/dL Glucose (74-99) mg/dL Urine Appearance Cloudy H (Clear) Urine Protein 2+ H (Negative) Urine Blood Small H (Negative) Urine Nitrite Positive H (Negative) Urine Bilirubin 1+ H (Negative) Ur Leukocyte Esterase Moderate H (Negative) Urine RBC 38 H (0-5) /hpf Urine WBC >182 H (0-5) /hpf Ur Squamous Epith Cells 8 H (0-4) /hpf Urine Bacteria Many H (None) /hpf Urine Mucus Many H (None) /hpf Thrombosis Risk Factor Assmnt - DVT/VTE Prophylaxis DVT/VTE Prophylaxis: Pharmacologic Prophylaxis ordered, Mechanical Prophylaxis ordered Assessment and Plan Assessment: Assessment and plan * Acute cystitis with history of recurrent UTI * Generalized weakness with fall/failure to thrive * Chronic atrial fibrillation with history of rapid ventricular response * History of dementia * History of hypertension * History of dyslipidemia * In regards to recurrent urinary tract infection, urine cultures ordered continue patient on IV Rocephin, bladder management protocol initiated * In regards to generalized weakness, physical therapy occupational therapy consulted maintain fall precautions * In regards to history affective fibrillation continue Cardizem, continue 02 continue telemetry monitoring * In regards to history of dementia continue patient on donepezil and Namenda, monitor for acute delirium home medications reviewed and reconciled * In regards to history of hypertension continue lisinopril, patient resuscitated with IV fluid as well continue maintenance fluid * CODE STATUS is full code Time with Patient: Greater than 30
[2023-04-30] MEDS: PANTOPRAZOLE 40 MG TABLET PO SCH (17:16)
[2023-04-30] MEDS: RIVAROXABAN 15 MG TAB PO SCH (20:50)
[2023-04-30] MEDS: MEMANTINE 10 MG TAB PO SCH (20:50)
[2023-04-30] MEDS: PRAVASTATIN SODIUM 80 MG TAB PO SCH (20:50)
[2023-04-30] MEDS: lisinopriL 5 MG TAB PO SCH (20:50)
[2023-05-01] MEDS: SODIUM CHLORIDE 0.9% 1,000 ML IV SCH ×2 (01:37→15:26)
[2023-05-01] MEDS: LORATADINE 10 MG TAB PO SCH (08:25)
[2023-05-01] MEDS: MEMANTINE 10 MG TAB PO SCH ×2 (08:25→22:06)
[2023-05-01] MEDS: PANTOPRAZOLE 40 MG TABLET PO SCH ×2 (08:25→17:41)
[2023-05-01] MEDS: CYANOCOBALAMIN 500 MCG TAB PO SCH (08:25)
[2023-05-01] MEDS: lisinopriL 5 MG TAB PO SCH ×2 (08:25→22:06)
[2023-05-01] MEDS: LEVOTHYROXINE 125 MCG TAB PO SCH (08:26)
[2023-05-01] MEDS: FERROUS SULFATE 325 MG TAB PO SCH (08:26)
[2023-05-01] MEDS: DONEPEZIL 10 MG TAB PO SCH (08:26)
[2023-05-01] MEDS: NON FORMULARY DRUG (Mirabegron [Myrbetriq] 50 MG Tablet) PO SCH (08:29)
[2023-05-01] MEDS: DILTIAZEM CD 180 MG CAP.ER.24H PO SCH (11:10)
[2023-05-01] MEDS: VORTIOXETINE HYDROBROMIDE 20 MG TABLET PO SCH (11:10)
[2023-05-01 11:28] LABS: Basophils # (A) 0.04 X 10*3/uL (0.00-0.10); Basophils % (A) 0.7 %; Eosinophils # (A) 0.16 X 10*3/uL (0.04-0.35); Eosinophils % (A) 2.8 %; HCT 37.8 % (37.2-46.3); HGB 12.5 g/dL (12.0-15.0); Lymphocytes % (A) 15.8 %; MCH 30.6 pg (27.0-32.0); MCHC 33.1 g/dL (32.0-37.0); MCV 92.6 FL (80.0-97.0); Mean Platelet Volume 12.2 FL (9.5-12.2); Monocytes # (A) 0.61 X 10*3/uL (0.20-1.00); Monocytes % (A) 10.7 %; NRBC Per 100 WBC 0 X 10*3/uL (0.00-0.01); Neutrophils # (A) 3.97 X 10*3/uL (1.80-7.70); Neutrophils % (A) 69.6 %; Platelet Count 158 X 10*3/uL (140-440); RBC 4.08 X 10*6/uL (4.10-5.20); RDW 13.2 % (11.5-14.5)
[2023-05-01 11:41] LABS: Blood Urea Nitrogen 12.8 mg/dL (9.0-27.0); Calcium 9.6 mg/dL (8.7-10.3); Carbon Dioxide 26.7 mmol/L (21.6-31.8); Chloride 109 mmol/L (96-109); Glucose 98 mg/dL (70-110); Potassium 3.7 mmol/L (3.5-5.5); Sodium 142 mmol/L (135-145)
--- NOTE | 2023-05-01 12:11 | P.PN ---
Subjective Progress Note Date: 05/01/23 * 83-year-old patient with past medical history significant for paroxysmal atrial fibrillation, hypertension, hyperlipidemia, I put thyroid history of dementia presents to the emergency department with recurrent persistent weakness. Patient was recently admitted discharge on 04/02/2023 admitted for urinary tract infection and weakness. During previous hospitalization patient was also seen by cardiology secondary to A. fib and rapid ventricular response. Cardiac medications optimized * Patient presents back to the emergency department with weakness and fall. Patient lies care about while in the bathroom. Patient does have history of recurrent UTIs patient was brought in by son who is primary caregiver is well. Patient was ambulated to the bathroom with assistance when her leg gave out and she was slowly lowered to the floor * Workup in ER included a chest x-ray which showed cardiomegaly without acute process, CT brain was obtained which was negative for acute intracranial mass. * CT abdomen and pelvis was obtained which was negative for acute finding, metallic hardware from right hip surgery was redemonstrated degenerative changes noted in lumbar spine coronary artery calcification noted trace bilateral pleural effusion noted * Blood work obtained in ER include CBC which were WBC 5.6, with 13.5 platelet 143 * Serum chemistry showed sodium 139 potassium 4.5 chloride 108B UN 18 creatinine 0.74 glucose 100 * Urinalysis is obtained showed significant WBC, moderate leukocyte Estrace positive nitrite * Patient started on fluid resuscitation started on IV Rocephin and will be admitted to medical floor for further management * 05/01/2023: Patient seen and evaluated bedside, patient sitting in recliner. Patient is alert however confuse, CBC within normal limits serum chemistry within normal limits patient continued to have profound weakness. Will need physical therapy occupational therapy evaluation and cultures ordered pending at this time. Will need discharge to subacute rehab REVIEW OF SYSTEMS: Generalized weakness, fall CONSTITUTIONAL: No fever, no malaise, no fatigue. HEENT: No recent visual problems or hearing problems. Denied any sore throat. CARDIOVASCULAR: No chest pain, orthopnea, PND, no palpitations, no syncope. PULMONARY: No shortness of breath, no cough, no hemoptysis. GASTROINTESTINAL: No diarrhea, no nausea, no vomiting, no abdominal pain. NEUROLOGICAL: No headaches, no weakness, no numbness. HEMATOLOGICAL: Denies any bleeding or petechiae. GENITOURINARY: Denies any burning micturition, frequency, or urgency. MUSCULOSKELETAL/RHEUMATOLOGICAL: Generalized weakness, fall ENDOCRINE: Denies any polyuria or polydipsia. PHYSICAL EXAMINATION: GENERAL: The patient is alert and oriented x3, generalized global weakness chronically ill appearance HEENT: Pupils are round and equally reacting to light. EOMI. CARDIOVASCULAR: S1 and S2 present. No murmurs, rubs, or gallops. PULMONARY: Chest is clear to auscultation, no wheezing or crackles. ABDOMEN: Soft, nontender, nondistended, normoactive bowel sounds. No palpable organomegaly. MUSCULOSKELETAL: No joint swelling or deformity. EXTREMITIES: No cyanosis, clubbing, or pedal edema. NEUROLOGICAL: Gross neurological examination did not reveal any focal deficits. Impaired cognition and memory, generalized global weakness Objective - Vital Signs Vital signs: Vital Signs Temp 98.6 F 05/01/23 08:00 Pulse 60 05/01/23 08:00 Resp 16 05/01/23 08:00 BP 185/71 05/01/23 08:00 Pulse Ox 92 L 05/01/23 08:00 FiO2 Intake & Output 04/30/23 05/01/23 05/01/23 18:59 06:59 18:59 Output Total 50 Balance -50 Weight 88.451 kg 88.451 kg Output: Urine 50 Straight 50 Other: Voiding Method External Catheter - Labs CBC & Chem 7: 05/01/23 06:37 05/01/23 06:37 Labs: Abnormal Lab Results - Last 24 Hours (Table) 04/30/23 05/01/23 Range/Units 10:56 06:37 RBC 4.08 L (4.10-5.20) X 10*6/uL Urine RBC 38 H (0-5) /hpf Urine WBC >182 H (0-5) /hpf Ur Squamous Epith Cells 8 H (0-4) /hpf Urine Bacteria Many H (None) /hpf Urine Mucus Many H (None) /hpf Assessment and Plan Assessment: Assessment and plan * Acute cystitis with history of recurrent UTI * Generalized weakness with fall/failure to thrive * Chronic atrial fibrillation with history of rapid ventricular response * History of dementia * History of hypertension * History of dyslipidemia * In regards to recurrent urinary tract infection, urine cultures ordered>> continue patient on IV Rocephin Day 2 , bladder management protocol initiated * In regards to generalized weakness, physical therapy occupational therapy consulted maintain fall precautions * In regards to history affective fibrillation continue Cardizem, Xarelto >> continue telemetry monitoring * In regards to history of dementia continue patient on donepezil and Namenda, monitor for acute delirium home medications reviewed and reconciled * In regards to history of hypertension continue lisinopril, patient resuscitated with IV fluid as well continue maintenance fluid * CODE STATUS is full code
[2023-05-01 16:36] LABS: Glucose,Whole Blood 154 mg/dL (70-110)
[2023-05-01] MEDS ORDERED: hydrALAZINE HCL 25 MG TAB PO STA (17:30)
[2023-05-01] MEDS: PRAVASTATIN SODIUM 80 MG TAB PO SCH (22:07)
[2023-05-01] MEDS: NYSTATIN 100,000 UNIT/GM POWD 15 GM TOPICAL SCH (22:08)
[2023-05-01] MEDS: RIVAROXABAN 15 MG TAB PO SCH (22:27)
[2023-05-02] MEDS ORDERED: SODIUM CHLORIDE 0.9% 1,000 ML IV SCH (01:45)
[2023-05-02] MEDS: lisinopriL 20 MG TAB PO SCH ×2 (02:30→10:03)
[2023-05-02] MEDS: LEVOTHYROXINE 75 MCG TAB PO SCH (06:33)
[2023-05-02] MEDS: PANTOPRAZOLE 40 MG TABLET PO SCH ×2 (06:33→18:08)
[2023-05-02 07:55] LABS: HCT 39.1 % (34.0-46.0); HGB 13.4 gm/dL (11.4-16.0); MCH 31.6 pg (25.0-35.0); MCHC 34.3 g/dL (31.0-37.0); MCV 92.2 fL (80.0-100.0); Mean Platelet Volume 10.1; Platelet Count 150 k/uL (150-450); RBC 4.24 m/uL (3.80-5.40); RDW 13.5 % (11.5-15.5)
[2023-05-02 08:15] LABS: African American GFR (CKD) >90 (>60 ml/min/1.73 sqM); Anion Gap 8 mmol/L; Blood Urea Nitrogen 15 mg/dL (7-17); Calcium 9.3 mg/dL (8.4-10.2); Carbon Dioxide 24 mmol/L (22-30); Chloride 109 mmol/L (98-107); Glucose 103 mg/dL (74-99); Non-African American GFR(CKD) 82 (>60 ml/min/1.73 sqM); Potassium 3.4 mmol/L (3.5-5.1); Sodium 141 mmol/L (137-145)
[2023-05-02] MEDS: DONEPEZIL 10 MG TAB PO SCH (09:55)
[2023-05-02] MEDS: NYSTATIN 100,000 UNIT/GM POWD 15 GM TOPICAL SCH ×2 (09:55→21:42)
[2023-05-02] MEDS: CYANOCOBALAMIN 500 MCG TAB PO SCH (09:55)
[2023-05-02] MEDS: MEMANTINE 10 MG TAB PO SCH ×2 (09:55→21:43)
[2023-05-02] MEDS: DILTIAZEM CD 180 MG CAP.ER.24H PO SCH (09:56)
[2023-05-02] MEDS: FERROUS SULFATE 325 MG TAB PO SCH (09:56)
[2023-05-02] MEDS: VORTIOXETINE HYDROBROMIDE 20 MG TABLET PO SCH (10:00)
[2023-05-02] MEDS: LORATADINE 10 MG TAB PO SCH (10:03)
[2023-05-02] MEDS: NON FORMULARY DRUG (Mirabegron [Myrbetriq] 50 MG Tablet) PO SCH (10:03)
[2023-05-02 13:34] VITALS: BMI 32.4
[2023-05-02] MEDS: PRAVASTATIN SODIUM 80 MG TAB PO SCH (21:43)
[2023-05-02] MEDS: RIVAROXABAN 15 MG TAB PO SCH (21:43)
[2023-05-03] MEDS: LEVOTHYROXINE 75 MCG TAB PO SCH (05:55)
[2023-05-03] MEDS: PANTOPRAZOLE 40 MG TABLET PO SCH ×2 (05:55→17:48)
--- NOTE | 2023-05-03 06:10 | P.PN ---
Subjective 83-year-old patient with past medical history significant for paroxysmal atrial fibrillation, hypertension, hyperlipidemia, I put thyroid history of dementia presents to the emergency department with recurrent persistent weakness. Patient was recently admitted discharge on 04/02/2023 admitted for urinary tract infection and weakness. During previous hospitalization patient was also seen by cardiology secondary to A. fib and rapid ventricular response. Cardiac medications optimized Patient presents back to the emergency department with weakness and fall. Patient lies care about while in the bathroom. Patient does have history of recurrent UTIs patient was brought in by son who is primary caregiver is well. Patient was ambulated to the bathroom with assistance when her leg gave out and she was slowly lowered to the floor Workup in ER included a chest x-ray which showed cardiomegaly without acute process, CT brain was obtained which was negative for acute intracranial mass. CT abdomen and pelvis was obtained which was negative for acute finding, metallic hardware from right hip surgery was redemonstrated degenerative changes noted in lumbar spine coronary artery calcification noted trace bilateral pleural effusion noted Blood work obtained in ER include CBC which were WBC 5.6, with 13.5 platelet 143 Serum chemistry showed sodium 139 potassium 4.5 chloride 108B UN 18 creatinine 0.74 glucose 100 Urinalysis is obtained showed significant WBC, moderate leukocyte Estrace positive nitrite Patient started on fluid resuscitation started on IV Rocephin and will be admitted to medical floor for further management 05/01/2023: Patient seen and evaluated bedside, patient sitting in recliner. Patient is alert however confuse, CBC within normal limits serum chemistry within normal limits patient continued to have profound weakness. Will need physical therapy occupational therapy evaluation and cultures ordered pending at this time. Will need discharge to subacute rehab 05/02/2023 Patient still generally weak Patient will benefit from a subacute rehab upon discharge His acute coronary tract infection is improving, he remains on ceftriaxone on with urine culture is growing gram-negative bacilli At [facility] for better blood pressure control Objective - Vital Signs Vital signs: Vital Signs Temp 98.5 F 05/02/23 07:10 Pulse 62 05/02/23 07:10 Resp 16 05/02/23 07:10 BP 193/69 05/02/23 07:10 Pulse Ox 95 05/02/23 07:10 FiO2 Intake & Output 05/01/23 05/02/23 05/02/23 18:59 06:59 18:59 Intake Total 120 150 Output Total 700 250 300 Balance -580 -250 -150 Weight 88.451 kg Intake: Oral 120 150 Output: Urine 700 250 300 Other: Voiding Method External Catheter External Catheter # Voids 4 # Bowel Movements 1 1 - Exam -GENERAL: The patient is alert and oriented x3, not in any acute distress. Generally weak HEENT: Pupils are round and equally reacting to light. EOMI. No scleral icterus. No conjunctival pallor. Normocephalic, atraumatic. No pharyngeal erythema. No thyromegaly. CARDIOVASCULAR: S1 and S2 present. No murmurs, rubs, or gallops. PULMONARY: Chest is clear to auscultation, no wheezing , no crackles. ABDOMEN: Soft, nontender, nondistended, normoactive bowel sounds. No palpable organomegaly. MUSCULOSKELETAL: No joint swelling or deformity. EXTREMITIES: No cyanosis, clubbing, or pedal edema. NEUROLOGICAL: Gross neurological examination did not reveal any focal deficits. SKIN: No rashes. no petechiae. - Labs CBC & Chem 7: 05/02/23 07:30 05/02/23 07:30 Labs: Abnormal Lab Results - Last 24 Hours (Table) 05/01/23 05/02/23 Range/Units 16:35 07:30 Potassium 3.4 L (3.5-5.1) mmol/L Chloride 109 H (98-107) mmol/L Glucose 103 H (74-99) mg/dL POC Glucose (mg/dL) 154 H (70-110) mg/dL Microbiology - Last 24 Hours (Table) 04/30/23 14:11 Blood Culture - Preliminary Blood 04/30/23 10:00 Urine Culture - Preliminary Urine,Catheterized Gram Neg Bacilli 04/30/23 14:11 Blood Culture - Preliminary Blood Assessment and Plan Assessment: Acute cystitis with history of recurrent UTI Generalized weakness secondary to above Chronic atrial fibrillation with history of rapid ventricular response History of dementia hypertension, uncontrolled on admission History of dyslipidemia Plan: Continue with ceftriaxone Follow-up urine culture Discontinue IV fluid Continue with Xarelto for a fib add Norvasc Labs and medication were reviewed.. Continue same treatment. Continue with symptomatic treatment. Resume home medication. Monitor labs and vitals. DVT and GI prophylaxis. Further recommendations as per clinical course of the patient DVT prophylaxis: Xarelto GI Prophylaxis: Ppi PT/OT: GRUPO Prognosis is guarded
[2023-05-03] MEDS: MEMANTINE 10 MG TAB PO SCH ×2 (09:46→21:45)
[2023-05-03] MEDS: lisinopriL 20 MG TAB PO SCH (09:46)
[2023-05-03] MEDS: FERROUS SULFATE 325 MG TAB PO SCH (09:46)
[2023-05-03] MEDS: LORATADINE 10 MG TAB PO SCH (09:46)
[2023-05-03] MEDS: CYANOCOBALAMIN 500 MCG TAB PO SCH (09:46)
[2023-05-03] MEDS: amLODIPine 5 MG TAB PO SCH (09:47)
[2023-05-03] MEDS: DONEPEZIL 10 MG TAB PO SCH (09:47)
[2023-05-03] MEDS: DILTIAZEM CD 180 MG CAP.ER.24H PO SCH (09:48)
[2023-05-03] MEDS: NON FORMULARY DRUG (Mirabegron [Myrbetriq] 50 MG Tablet) PO SCH (09:50)
[2023-05-03] MEDS: VORTIOXETINE HYDROBROMIDE 20 MG TABLET PO SCH (09:51)
[2023-05-03] MEDS: NYSTATIN 100,000 UNIT/GM POWD 15 GM TOPICAL SCH ×2 (09:51→21:45)
[2023-05-03] MEDS: RIVAROXABAN 15 MG TAB PO SCH (21:45)
[2023-05-03] MEDS: PRAVASTATIN SODIUM 80 MG TAB PO SCH (21:45)
--- NOTE | 2023-05-04 05:27 | P.PN ---
Subjective 83-year-old patient with past medical history significant for paroxysmal atrial fibrillation, hypertension, hyperlipidemia, I put thyroid history of dementia presents to the emergency department with recurrent persistent weakness. Patient was recently admitted discharge on 04/02/2023 admitted for urinary tract infection and weakness. During previous hospitalization patient was also seen by cardiology secondary to A. fib and rapid ventricular response. Cardiac medications optimized Patient presents back to the emergency department with weakness and fall. Patient lies care about while in the bathroom. Patient does have history of recurrent UTIs patient was brought in by son who is primary caregiver is well. Patient was ambulated to the bathroom with assistance when her leg gave out and she was slowly lowered to the floor Workup in ER included a chest x-ray which showed cardiomegaly without acute process, CT brain was obtained which was negative for acute intracranial mass. CT abdomen and pelvis was obtained which was negative for acute finding, metallic hardware from right hip surgery was redemonstrated degenerative changes noted in lumbar spine coronary artery calcification noted trace bilateral pleural effusion noted Blood work obtained in ER include CBC which were WBC 5.6, with 13.5 platelet 143 Serum chemistry showed sodium 139 potassium 4.5 chloride 108B UN 18 creatinine 0.74 glucose 100 Urinalysis is obtained showed significant WBC, moderate leukocyte Estrace positive nitrite Patient started on fluid resuscitation started on IV Rocephin and will be admitted to medical floor for further management 05/01/2023: Patient seen and evaluated bedside, patient sitting in recliner. Patient is alert however confuse, CBC within normal limits serum chemistry within normal limits patient continued to have profound weakness. Will need physical therapy occupational therapy evaluation and cultures ordered pending at this time. Will need discharge to subacute rehab 05/02/2023 Patient still generally weak Patient will benefit from a subacute rehab upon discharge His acute coronary tract infection is improving, he remains on ceftriaxone on with urine culture is growing gram-negative bacilli At [facility] for better blood pressure control 05/03/2023 patient awake alert, mildly drowsy wake up easily. No other new complaint She is still on cephalexin for UTI, urine culture is growing sensitivity: Patient will require subacute rehab upon discharge Patient medically stable for discharge pending placement Possible discharge in 24-48 hours Objective - Vital Signs Vital signs: Vital Signs Temp 98.4 F 05/03/23 14:00 Pulse 89 05/03/23 14:00 Resp 17 05/03/23 14:00 BP 170/65 05/03/23 14:00 Pulse Ox 96 05/03/23 14:00 FiO2 Intake & Output 05/03/23 05/03/23 05/04/23 06:59 18:59 06:59 Output Total 500 1200 Balance -500 -1200 Output: Urine 500 1200 Other: Voiding Method External Catheter External Catheter - Exam -GENERAL: The patient is alert and oriented x3, not in any acute distress. Generally weak HEENT: Pupils are round and equally reacting to light. EOMI. No scleral icterus. No conjunctival pallor. Normocephalic, atraumatic. No pharyngeal erythema. No thyromegaly. CARDIOVASCULAR: S1 and S2 present. No murmurs, rubs, or gallops. PULMONARY: Chest is clear to auscultation, no wheezing , no crackles. ABDOMEN: Soft, nontender, nondistended, normoactive bowel sounds. No palpable organomegaly. MUSCULOSKELETAL: No joint swelling or deformity. EXTREMITIES: No cyanosis, clubbing, or pedal edema. NEUROLOGICAL: Gross neurological examination did not reveal any focal deficits. SKIN: No rashes. no petechiae. - Labs CBC & Chem 7: 05/02/23 07:30 05/02/23 07:30 Labs: Microbiology - Last 24 Hours (Table) 04/30/23 14:11 Blood Culture - Preliminary Blood 04/30/23 10:00 Urine Culture - Final Urine,Catheterized Escherichia coli 04/30/23 14:11 Blood Culture - Preliminary Blood Assessment and Plan Assessment: Acute cystitis with history of recurrent UTI Metabolic encephalopathy secondary to above Generalized weakness secondary to above Chronic atrial fibrillation with history of rapid ventricular response History of dementia hypertension, uncontrolled on admission History of dyslipidemia Plan: Continue with ceftriaxone Follow-up urine culture Discontinue IV fluid Continue with Xarelto for a fib add Norvasc Labs and medication were reviewed.. Continue same treatment. Continue with symptomatic treatment. Resume home medication. Monitor labs and vitals. DVT and GI prophylaxis. Further recommendations as per clinical course of the patient DVT prophylaxis: Xarelto GI Prophylaxis: Ppi PT/OT: GRUPO Prognosis is guarded
[2023-05-04] MEDS: PANTOPRAZOLE 40 MG TABLET PO SCH ×2 (05:47→18:23)
[2023-05-04] MEDS: LEVOTHYROXINE 125 MCG TAB PO SCH (05:47)
[2023-05-04] MEDS ORDERED: lisinopriL 20 MG TAB PO SCH (09:00)
[2023-05-04] MEDS: CYANOCOBALAMIN 500 MCG TAB PO SCH (09:53)
[2023-05-04] MEDS: LORATADINE 10 MG TAB PO SCH (09:53)
[2023-05-04] MEDS: amLODIPine 5 MG TAB PO SCH (09:53)
[2023-05-04] MEDS: FERROUS SULFATE 325 MG TAB PO SCH (09:53)
[2023-05-04] MEDS: DONEPEZIL 10 MG TAB PO SCH (09:54)
[2023-05-04] MEDS: MEMANTINE 10 MG TAB PO SCH ×2 (09:54→20:33)
[2023-05-04] MEDS: DILTIAZEM CD 180 MG CAP.ER.24H PO SCH (09:54)
[2023-05-04] MEDS: VORTIOXETINE HYDROBROMIDE 20 MG TABLET PO SCH (09:55)
[2023-05-04] MEDS: NON FORMULARY DRUG (Mirabegron [Myrbetriq] 50 MG Tablet) PO SCH (09:55)
[2023-05-04] MEDS: NYSTATIN 100,000 UNIT/GM POWD 15 GM TOPICAL SCH ×2 (09:55→20:33)
[2023-05-04] MEDS: hydrALAZINE HCL 50 MG TAB PO SCH ×2 (12:14→20:33)
[2023-05-04] MEDS ORDERED: FUROSEMIDE 10 MG/ML 4 ML VIAL IV STA (14:49)
[2023-05-04 17:08] LABS: Basophils % (A) 1 %; Eosinophils # (A) 0.2 k/uL (0-0.7); Eosinophils % (A) 2 %; HCT 44.6 % (34.0-46.0); HGB 14.8 gm/dL (11.4-16.0); Lymphocytes # (A) 1.1 k/uL (1.0-4.8); Lymphocytes % (A) 14 %; MCH 30.7 pg (25.0-35.0); MCHC 33.2 g/dL (31.0-37.0); MCV 92.5 fL (80.0-100.0); Mean Platelet Volume 9.4; Monocytes # (A) 0.5 k/uL (0-1.0); Monocytes % (A) 6 %; Neutrophils # (A) 6.3 k/uL (1.3-7.7); Neutrophils % (A) 77 %; Platelet Count 192 k/uL (150-450); RBC 4.83 m/uL (3.80-5.40); RDW 13.2 % (11.5-15.5); WBC 8.2 k/uL (3.8-10.6)
[2023-05-04 17:15] LABS: African American GFR (CKD) >90 (>60 ml/min/1.73 sqM); Anion Gap 6 mmol/L; Blood Urea Nitrogen 21 mg/dL (7-17); Calcium 9.8 mg/dL (8.4-10.2); Carbon Dioxide 28 mmol/L (22-30); Chloride 107 mmol/L (98-107); Glucose 129 mg/dL (74-99); Non-African American GFR(CKD) 80 (>60 ml/min/1.73 sqM); Potassium 3.5 mmol/L (3.5-5.1); Sodium 141 mmol/L (137-145)
[2023-05-04] MEDS ORDERED: DILTIAZEM DRIP BOLUS FROM BAG 1 MG SOLN IV ONE (21:01)
[2023-05-04] MEDS ORDERED: DILTIAZEM 125 MG in SODIUM CHLORIDE 0.9% 100 ML IV SCH (21:15)
[2023-05-04] MEDS: PRAVASTATIN SODIUM 80 MG TAB PO SCH (21:57)
[2023-05-04] MEDS: RIVAROXABAN 15 MG TAB PO SCH (21:57)
[2023-05-04] MEDS ORDERED: HYDROmorphone 0.5 MG/0.5 ML SYRINGE IVP PRN (22:29)
[2023-05-04] MEDS ORDERED: HYDROcodone/APAP 5-325MG 1 EACH TAB PO PRN (22:30)
[2023-05-05] MEDS ORDERED: POTASSIUM CHLORIDE ER 20 MEQ TAB.ER PO STA (02:52)
--- NOTE | 2023-05-05 03:04 | P.PN ---
Subjective 83-year-old patient with past medical history significant for paroxysmal atrial fibrillation, hypertension, hyperlipidemia, I put thyroid history of dementia presents to the emergency department with recurrent persistent weakness. Patient was recently admitted discharge on 04/02/2023 admitted for urinary tract infection and weakness. During previous hospitalization patient was also seen by cardiology secondary to A. fib and rapid ventricular response. Cardiac medications optimized Patient presents back to the emergency department with weakness and fall. Patient lies care about while in the bathroom. Patient does have history of recurrent UTIs patient was brought in by son who is primary caregiver is well. Patient was ambulated to the bathroom with assistance when her leg gave out and she was slowly lowered to the floor Workup in ER included a chest x-ray which showed cardiomegaly without acute process, CT brain was obtained which was negative for acute intracranial mass. CT abdomen and pelvis was obtained which was negative for acute finding, metallic hardware from right hip surgery was redemonstrated degenerative changes noted in lumbar spine coronary artery calcification noted trace bilateral pleural effusion noted Blood work obtained in ER include CBC which were WBC 5.6, with 13.5 platelet 143 Serum chemistry showed sodium 139 potassium 4.5 chloride 108B UN 18 creatinine 0.74 glucose 100 Urinalysis is obtained showed significant WBC, moderate leukocyte Estrace positive nitrite Patient started on fluid resuscitation started on IV Rocephin and will be admitted to medical floor for further management 05/01/2023: Patient seen and evaluated bedside, patient sitting in recliner. Patient is alert however confuse, CBC within normal limits serum chemistry within normal limits patient continued to have profound weakness. Will need physical therapy occupational therapy evaluation and cultures ordered pending at this time. Will need discharge to subacute rehab 05/02/2023 Patient still generally weak Patient will benefit from a subacute rehab upon discharge His acute coronary tract infection is improving, he remains on ceftriaxone on with urine culture is growing gram-negative bacilli At [facility] for better blood pressure control 05/03/2023 patient awake alert, mildly drowsy wake up easily. No other new complaint She is still on cephalexin for UTI, urine culture is growing sensitivity: Patient will require subacute rehab upon discharge Patient medically stable for discharge pending placement Possible discharge in 24-48 hours 05/04/2023 Patient awake and alert and was comfortable, denies any urinary symptoms no chest pain no dyspnea and no other new complaints Patient was being considered for discharge after a urine culture finalize for sensitive E. coli while she is on ceftriaxone, she was tolerating diet well and her ABDOMEN was was stopped Patient was supposed to go back to rehab upon discharge since she came from rehab to the hospital the first placed however it turned out that patient has finished her days for rehab during this year and therefore supposed to go home, however her blood pressure remained significantly elevated with systolic more than 190 despite several medication given to her including hydralazine, exostosis of lisinopril, Lasix. So discharge was held and cardiology team was consulted ,later on patient developed A. fib and RVR and patient was started on Cardizem drip and sent to telemetry floor. We going to check labs in the morning Bedside plan of care discussed with him in details and he was agreeable for the plan. All questions answered to his satisfaction Review of systems CONSTITUTIONAL: No fever, no malaise, no fatigue. HEENT: No recent visual problems or hearing problems. Denied any sore throat. CARDIOVASCULAR: No orthopnea, PND, no palpitations, no syncope. PULMONARY: No shortness of breath, no cough, no hemoptysis. GASTROINTESTINAL: No diarrhea, no nausea, no vomiting, no abdominal pain. Normoactive bowel sounds. NEUROLOGICAL: No headaches, no weakness, no numbness. Active Medications Generic Name Dose Route Start Last Admin Trade Name Freq PRN Reason Stop Dose Admin Acetaminophen 650 mg 04/30/23 14:30 05/01/23 15:25 Acetaminophen Tab 325 Mg Tab PO 650 mg Q6HR PRN Administration Mild Pain or Fever > 100.5 Hydrocodone Bitart/Acetaminophen 1 each 05/04/23 22:30 Hydrocodone/Apap 5-325mg 1 Each Tab PO Q6HR PRN Pain Cyanocobalamin 500 mcg 05/01/23 09:00 05/04/23 09:53 Cyanocobalamin 500 Mcg Tab PO 500 mcg DAILY LIVAN Administration Diltiazem HCl 180 mg 05/01/23 09:00 05/04/23 09:54 Diltiazem Cd 180 Mg Cap.Er.24h PO 180 mg DAILY LIVAN Administration Donepezil HCl 10 mg 05/01/23 09:00 05/04/23 09:54 Donepezil 10 Mg Tab PO 10 mg DAILY LIVAN Administration Ferrous Sulfate 325 mg 05/01/23 09:00 05/04/23 09:53 Ferrous Sulfate 325 Mg Tab PO 325 mg DAILY LIVAN Administration Hydromorphone HCl 0.5 mg 05/04/23 22:29 05/04/23 22:39 Hydromorphone 0.5 Mg/0.5 Ml Syringe IVP 0.5 mg Q6HR PRN Administration Pain Ceftriaxone Sodium 2 gm/ 50 mls @ 100 mls/hr 05/01/23 09:00 05/04/23 09:54 Sodium Chloride IVPB 100 mls/hr Q24HR LIVAN Administration Protocol Diltiazem HCl 125 mg/ Sodium 125 mls @ 5 mls/hr 05/04/23 21:15 05/04/23 22:09 Chloride IV 5 mg/hr .Q24H LIVAN 5 mls/hr Administration 5 MG/HR Levothyroxine Sodium 150 mcg 05/02/23 06:30 05/03/23 05:55 Levothyroxine 75 Mcg Tab PO 150 mcg [id number] LIVAN Administration Levothyroxine Sodium 125 mcg 05/01/23 06:30 05/04/23 05:47 Levothyroxine 125 Mcg Tab PO 125 mcg [id number] LIVAN Administration Lisinopril 20 mg 05/05/23 09:00 Lisinopril 20 Mg Tab PO DAILY LIVAN Loratadine 10 mg 05/01/23 09:00 05/04/23 09:53 Loratadine 10 Mg Tab PO 10 mg DAILY LIVAN Administration Memantine 10 mg 04/30/23 21:00 05/04/23 20:33 Memantine 10 Mg Tab PO 10 mg BID LIVAN Administration Metoprolol Tartrate 25 mg 05/05/23 09:00 Metoprolol Tartrate 25 Mg Tab PO BID LIVAN Naloxone HCl 0.2 mg 04/30/23 13:04 Naloxone 0.4 Mg/Ml 1 Ml Vial IV Q2M PRN Opioid Reversal Brexpiprazole [ 2 mg 04/30/23 13:08 05/03/23 21:46 Rexulti] 2 Mg Tablet PO 2 mg HS PRN Administration sleep/agitation Methenamine 1 gm 04/30/23 21:00 05/04/23 20:33 Hippurate [ PO 1 gm Methenamine BID LIVAN Administration Hippurate] 1 Gm Tablet) Non-Formulary Medication 50 mg 05/01/23 09:00 05/04/23 09:55 Mirabegron [Myrbetriq] PO Not Given DAILY LIVAN Nystatin 1 applic 05/01/23 21:00 05/04/23 20:33 Nystatin 100,000 Unit/Gm Powd 15 Gm TOPICAL 1 applic BID LIVAN Administration Protocol Ondansetron HCl 4 mg 04/30/23 13:04 Ondansetron 4 Mg/2 Ml Vial IVP Q8HR PRN Nausea And Vomiting Pantoprazole Sodium 40 mg 04/30/23 17:30 05/04/23 18:23 Pantoprazole 40 Mg Tablet PO Not Given AC-BID LIVAN Pravastatin Sodium 80 mg 04/30/23 21:00 05/04/23 21:57 Pravastatin Sodium 80 Mg Tab PO 80 mg HS LIVAN Administration Rivaroxaban 15 mg 04/30/23 21:00 05/04/23 21:57 Rivaroxaban 15 Mg Tab PO 15 mg HS LIVAN Administration Protocol Vortioxetine 20 mg 05/01/23 09:00 05/04/23 09:55 Vortioxetine Hydrobromide 20 Mg Tablet PO 20 mg DAILY LIVAN Administration Objective - Vital Signs Vital signs: Vital Signs Temp 98.3 F 05/04/23 13:37 Pulse 73 05/04/23 14:45 Resp 19 05/04/23 13:37 BP 196/67 05/04/23 14:45 Pulse Ox 94 L 05/04/23 13:37 FiO2 Intake & Output 05/03/23 05/04/23 05/04/23 18:59 06:59 18:59 Output Total 1200 690 Balance -1200 -690 Output: Urine 1200 690 Other: Voiding Method External Catheter External Catheter External Catheter - Exam -GENERAL: The patient is alert and oriented x3, not in any acute distress. Generally weak HEENT: Pupils are round and equally reacting to light. EOMI. No scleral icterus. No conjunctival pallor. Normocephalic, atraumatic. No pharyngeal erythema. No thyromegaly. CARDIOVASCULAR: S1 and S2 present. No murmurs, rubs, or gallops. PULMONARY: Chest is clear to auscultation, no wheezing , no crackles. ABDOMEN: Soft, nontender, nondistended, normoactive bowel sounds. No palpable organomegaly. MUSCULOSKELETAL: No joint swelling or deformity. EXTREMITIES: No cyanosis, clubbing, or pedal edema. NEUROLOGICAL: Gross neurological examination did not reveal any focal deficits. SKIN: No rashes. no petechiae. - Labs CBC & Chem 7: 05/04/23 16:45 05/04/23 16:45 Labs: Microbiology - Last 24 Hours (Table) 04/30/23 14:11 Blood Culture - Preliminary Blood 04/30/23 14:11 Blood Culture - Preliminary Blood Assessment and Plan Assessment: Acute cystitis with history of recurrent UTI secondary to sensitive E. coli Metabolic encephalopathy secondary to above. 4 dementia, improved patient back to baseline Generalized weakness secondary to above patient could not go to rehab because she finish her days with her medical insurance provider Paroxysmal atrial fibrillation with rapid ventricular response History of dementia hypertension, uncontrolled on admission History of dyslipidemia Plan: Continue with ceftriaxone Start Cardizem drip and transferred to telemetry floor with cardiology consult Continue with Cardizem 180 mg, lisinopril 20 mg, we added metoprolol 25 mg twice a day Opinion with Xarelto Cardiology team consult Labs and medication were reviewed.. Continue same treatment. Continue with symptomatic treatment. Resume home medication. Monitor labs and vitals. DVT and GI prophylaxis. Further recommendations as per clinical course of the patient DVT prophylaxis: Xarelto GI Prophylaxis: Ppi PT/OT: GRUPO over patient finish her days in rehab so she would go home with home care Prognosis is guarded
[2023-05-05] MEDS: LEVOTHYROXINE 75 MCG TAB PO SCH (06:37)
[2023-05-05] MEDS: PANTOPRAZOLE 40 MG TABLET PO SCH (06:37)
[2023-05-05] MEDS: CYANOCOBALAMIN 500 MCG TAB PO SCH (08:41)
[2023-05-05] MEDS: MEMANTINE 10 MG TAB PO SCH (08:41)
[2023-05-05] MEDS: FERROUS SULFATE 325 MG TAB PO SCH (08:41)
[2023-05-05] MEDS: VORTIOXETINE HYDROBROMIDE 20 MG TABLET PO SCH (08:41)
[2023-05-05] MEDS: DILTIAZEM CD 180 MG CAP.ER.24H PO SCH (08:42)
[2023-05-05] MEDS: LORATADINE 10 MG TAB PO SCH (08:42)
[2023-05-05] MEDS: NYSTATIN 100,000 UNIT/GM POWD 15 GM TOPICAL SCH (08:43)
[2023-05-05] MEDS: NON FORMULARY DRUG (Mirabegron [Myrbetriq] 50 MG Tablet) PO SCH (08:44)
[2023-05-05] MEDS: DONEPEZIL 10 MG TAB PO SCH (08:46)
[2023-05-05 08:59] VITALS: TEMP 98.7
[2023-05-05] MEDS ORDERED: lisinopriL 20 MG TAB PO SCH (09:00)
[2023-05-05] MEDS ORDERED: METOPROLOL TARTRATE 25 MG TAB PO SCH (09:00)
[2023-05-05 09:54] LABS: Basophils # (A) 0.1 k/uL (0-0.2); Basophils % (A) 1 %; Eosinophils # (A) 0.1 k/uL (0-0.7); Eosinophils % (A) 1 %; HCT 48.8 % (34.0-46.0); HGB 16.2 gm/dL (11.4-16.0); Lymphocytes # (A) 1.3 k/uL (1.0-4.8); Lymphocytes % (A) 11 %; MCH 30.8 pg (25.0-35.0); MCHC 33.2 g/dL (31.0-37.0); MCV 92.9 fL (80.0-100.0); Mean Platelet Volume 9.8; Monocytes # (A) 0.8 k/uL (0-1.0); Monocytes % (A) 7 %; Neutrophils % (A) 79 %; Platelet Count 235 k/uL (150-450); RBC 5.25 m/uL (3.80-5.40); RDW 13.4 % (11.5-15.5); WBC 11.3 k/uL (3.8-10.6)
[2023-05-05 10:08] LABS: African American GFR (CKD) 83 (>60 ml/min/1.73 sqM); Anion Gap 8 mmol/L; Blood Urea Nitrogen 19 mg/dL (7-17); Calcium 10.4 mg/dL (8.4-10.2); Carbon Dioxide 30 mmol/L (22-30); Chloride 104 mmol/L (98-107); Glucose 116 mg/dL (74-99); Magnesium 2.1 mg/dL (1.6-2.3); Non-African American GFR(CKD) 72 (>60 ml/min/1.73 sqM); Potassium 3.7 mmol/L (3.5-5.1); Sodium 142 mmol/L (137-145)
--- NOTE | 2023-05-05 10:57 | P.CRDCN ---
History of Present Illness History of present illness: HISTORY OF PRESENT ILLNESS: This is a 83-year-old female with a past medical history significant for paroxysmal atrial fibrillation, hypothyroidism, hypertension, hyperlipidemia, and dementia. Patient does not follow with a die designer. We have been asked to see the patient in consultation for hypertension. Patient examined at the bedside. Patient is alert and oriented 1. Patient admitted to the hospital secondary to UTI and weakness. Patient's blood pressures were elevated upon admission to the hospital however they are well controlled this morning with a systolic in the 130s. The patient did go into A. fib with RVR yesterday. She was started on IV Cardizem and subsequently converted to sinus mechanism. She is maintaining sinus mechanism this morning. She denies any chest pain or pressure. She denies any shortness of breath. * EKG reveals A. fib with RVR * Chest xray mild cardiomegaly without acute pulmonary process * Laboratory data: WBC 11.3. Hemoglobin 16.2. Platelet count 235. BUN 19. Creatinine 0.77. Magnesium 2.1 * Current home cardiac medications include lisinopril 5 mg twice a day, Xarelto 15 mg at night, Cardizem CD 180 mg daily, amlodipine 5 mg daily * Most recent echocardiogram obtained in March 2023 revealed ejection fr action 55-60% with mild MR and mild TR * Patient underwent Lexiscan stress test in October 2019 revealing possible very subtle small area of reversibility along inferior lateral wall base. No other findings of inducible ischemia REVIEW OF SYSTEMS: At the time of my exam: CONSTITUTIONAL: Denies fever or chills. HEENT: Denies blurred vision, vision changes, or eye pain. Denies hemoptysis CARDIOVASCULAR: Denies chest pain. Denies orthopnea. Denies PND. Denies palpita tions RESPIRATORY: Denies shortness of breath. GASTROINTESTINAL: Denies abdominal pain. Denies nausea or vomiting. HEMATOLOGIC: Denies bleeding disorders. GENITOURINARY: Denies any blood in urine. SKIN: Denies pruitis. Denies rash. PHYSICAL EXAM: VITAL SIGNS: Reviewed. GENERAL: Well-developed in no acute distress. HEENT: Head is normocephalic. Pupils are equal, round. Sclerae anicteric. Mucous membranes of the mouth are moist. Neck supple. No JVD or thyromegaly LUNGS: Respirations even and unlabored. Lungs essentially clear to auscultation bilaterally. HEART: Regular rate and rhythm. S1 and S2 heard. ABDOMEN: Soft. Nondistended. Nontender. EXTREMITIES: Normal range of motion. No clubbing or cyanosis. Peripheral pulses intact. No lower extremity edema NEUROLOGIC: Awake and alert. Oriented x 1. ASSESSMENT: Generalized weakness Urinary tract infection Paroxysmal atrial fibrillation with RVR, currently maintaining sinus mechanism Hypertension Hyperlipidemia Hypothyroidism Dementia PLAN: No need to repeat echocardiogram as this was recently performed in March Lisinopril has been increased Increased Cardize CD to 240 mg daily Patient may be discharged home today from a cardiac standpoint We will sign off. Please reconsult if needed. Nurse practitioner note has been reviewed by physician. Signing provider agrees with the documented findings, assessment, and plan of care. 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 Past Anesthesia/Blood Transfusion Reactions: No Reported Reaction Date of Last Stent Placement:: 2017 Past Psychological History: Depression Smoking Status: Former smoker Past Alcohol Use History: None Reported Additional Past Alcohol Use History / Comment(s): quit smoking in the 70's Past Drug Use History: None Reported - Past Family History Daughter(s) Family Medical History: Cancer Father History Unknown: Yes Additional Family Medical History / Comment(s): BRAIN TUMOR Mother Family Medical History: Cancer Medications and Allergies Home Medications Medication Instructions Recorded Confirmed Type Levothyroxine Sodium [Synthroid] 150 mcg PO SUTUWETHSA 09/30/13 04/30/23 History Pravastatin Sodium [Pravachol] 80 mg PO HS 11/07/14 04/30/23 History Multivitamins, Thera [Multivitamin 1 tab PO DAILY 06/01/18 04/30/23 History (formulary)] Ferrous Sulfate [Iron (65 MG 325 mg PO DAILY 06/16/18 04/30/23 History Elemental)] Donepezil [Aricept] 10 mg PO DAILY 06/22/21 04/30/23 History Memantine [Namenda] 10 mg PO BID 06/22/21 04/30/23 History Mirabegron [Myrbetriq] 50 mg PO DAILY 06/22/21 04/30/23 History Sennosides-Docusate Sodium 1 tab PO HS 06/22/21 04/30/23 History [Senokot-S] Cyanocobalamin [Vitamin B-12] 500 mcg PO DAILY 07/16/21 04/30/23 History Rivaroxaban [Xarelto] 15 mg PO HS 07/16/21 04/30/23 History Pantoprazole [Protonix] 40 mg PO BID 02/23/22 04/30/23 History Levothyroxine Sodium [Synthroid] 125 mcg PO MOFR 06/05/22 04/30/23 History Nitroglycerin Sl Tabs [Nitrostat] 0.4 mg SL Q5M PRN 06/05/22 04/30/23 History Vortioxetine Hydrobromide 20 mg PO DAILY 06/05/22 04/30/23 History [Trintellix] Methenamine Hippurate 1 gm PO BID 12/24/22 04/30/23 History Brexpiprazole [Rexulti] 2 mg PO HS PRN 03/29/23 04/30/23 History Acetaminophen Tab [Tylenol] 650 mg PO Q6HR PRN tab 04/02/23 04/30/23 Rx Diltiazem Cd [Cardizem CD] 180 mg PO DAILY cap 04/02/23 04/30/23 Rx lisinopriL [Zestril] 5 mg PO BID tab 04/02/23 04/30/23 Rx Loratadine [Claritin] 10 mg PO DAILY PRN #0 05/04/23 04/30/23 Rx Nystatin 100,000 Unit/gm Powd 1 applic TOPICAL BID each 05/04/23 Rx [Mycostatin Powder] amLODIPine [Norvasc] 5 mg PO DAILY tab 05/04/23 Rx cefUROXime axetiL [Ceftin] 500 mg PO BID 5 Days #10 tab 05/04/23 Rx Allergies Allergy/AdvReac Type Severity Reaction Status Date / Time azithromycin Allergy Rash/Hives Verified 04/30/23 11:40 [From Zithromax Z-Chau] codeine Allergy Unknown Verified 04/30/23 11:40 hydrochlorothiazide Allergy Unknown Verified 04/30/23 11:40 [From Dyazide] lincomycin HCl Allergy Unknown Verified 04/30/23 11:40 [From Lincocin] meperidine HCl [From Demerol] Allergy Unknown Verified 04/30/23 11:40 metronidazole [From Flagyl] Allergy Unknown Verified 04/30/23 11:40 Metronidazole HCl Allergy Unknown Verified 04/30/23 11:40 [From Flagyl] nitrofurantoin Allergy Confusion Verified 04/30/23 11:40 [From Macrobid] Penicillins Allergy Unknown Verified 04/30/23 11:40 Childhood [id number]-[id number]-UfC Reductase Allergy Unknown Verified 04/30/23 11:40 Inhibitor Sulfa (Sulfonamide Allergy Unknown Verified 04/30/23 11:40 Antibiotics) tetracycline [Tetracycline] Allergy Unknown Verified 04/30/23 11:40 triamterene [From Dyazide] Allergy Unknown Verified 04/30/23 11:40 watermelon Allergy Swelling Verified 04/30/23 11:40 atorvastatin calcium AdvReac MUSCLE Verified 04/30/23 11:40 [From Lipitor] ACHES rosuvastatin calcium AdvReac MUSCLE Verified 04/30/23 11:40 [From Crestor] ACHES Physical Exam Vitals: Vital Signs Temp Pulse Resp BP Pulse Ox 05/05/23 08:40 98.7 F 73 18 131/67 96 05/05/23 04:00 113 H 16 148/88 92 L 05/05/23 02:00 91 16 147/83 93 L 05/04/23 20:00 129 H 18 05/04/23 19:35 97.9 F 136 H 22 171/89 93 L 05/04/23 14:45 73 196/67 05/04/23 13:37 98.3 F 59 L 19 194/60 94 L 05/04/23 11:32 65 194/68 Intake and Output 05/04/23 05/05/23 05/05/23 22:59 06:59 14:59 Output Total 3200 Balance -3200 Output: Urine 3200 Other: Voiding Method External Catheter External Catheter # Voids 1 Results 05/05/23 09:14 05/05/23 09:14 CBC 05/04/23 05/05/23 Range/Units 16:45 09:14 WBC 8.2 11.3 H (3.8-10.6) k/uL RBC 4.83 5.25 (3.80-5.40) m/uL Hgb 14.8 16.2 H (11.4-16.0) gm/dL Hct 44.6 48.8 H (34.0-46.0) % Plt Count 192 235 (150-450) k/uL Comprehensive Metabolic Panel 05/04/23 05/05/23 Range/Units 16:45 09:14 Sodium 141 142 (137-145) mmol/L Potassium 3.5 3.7 (3.5-5.1) mmol/L Chloride 107 104 (98-107) mmol/L Carbon Dioxide 28 30 (22-30) mmol/L BUN 21 H 19 H (7-17) mg/dL Creatinine 0.70 0.77 (0.52-1.04) mg/dL Glucose 129 H 116 H (74-99) mg/dL Calcium 9.8 10.4 H (8.4-10.2) mg/dL Current Medications Generic Name Dose Route Start Last Admin Trade Name Freq PRN Reason Stop Dose Admin Acetaminophen 650 mg 04/30/23 14:30 05/01/23 15:25 Acetaminophen Tab 325 Mg Tab PO 650 mg Q6HR PRN Administration Mild Pain or Fever > 100.5 Hydrocodone Bitart/Acetaminophen 1 each 05/04/23 22:30 Hydrocodone/Apap 5-325mg 1 Each Tab PO Q6HR PRN Pain Cyanocobalamin 500 mcg 05/01/23 09:00 05/05/23 08:41 Cyanocobalamin 500 Mcg Tab PO 500 mcg DAILY LIVAN Administration Diltiazem HCl 240 mg 05/06/23 09:00 Diltiazem Cd 240 Mg Cap.Er.24h PO DAILY LIVAN Donepezil HCl 10 mg 05/01/23 09:00 05/05/23 08:46 Donepezil 10 Mg Tab PO 10 mg DAILY LIVAN Administration Ferrous Sulfate 325 mg 05/01/23 09:00 05/05/23 08:41 Ferrous Sulfate 325 Mg Tab PO 325 mg DAILY LIVAN Administration Hydromorphone HCl 0.5 mg 05/04/23 22:29 05/04/23 22:39 Hydromorphone 0.5 Mg/0.5 Ml Syringe IVP 0.5 mg Q6HR PRN Administration Pain Ceftriaxone Sodium 2 gm/ 50 mls @ 100 mls/hr 05/01/23 09:00 05/05/23 08:45 Sodium Chloride IVPB 100 mls/hr Q24HR LIVAN Administration Protocol Levothyroxine Sodium 150 mcg 05/02/23 06:30 05/05/23 06:37 Levothyroxine 75 Mcg Tab PO 150 mcg [id number] LIVAN Administration Levothyroxine Sodium 125 mcg 05/01/23 06:30 05/04/23 05:47 Levothyroxine 125 Mcg Tab PO 125 mcg [id number] LIVAN Administration Lisinopril 20 mg 05/05/23 09:00 05/05/23 08:41 Lisinopril 20 Mg Tab PO 20 mg DAILY LIVAN Administration Loratadine 10 mg 05/01/23 09:00 05/05/23 08:42 Loratadine 10 Mg Tab PO 10 mg DAILY LIVAN Administration Memantine 10 mg 04/30/23 21:00 05/05/23 08:41 Memantine 10 Mg Tab PO 10 mg BID LIVAN Administration Metoprolol Tartrate 25 mg 05/05/23 09:00 05/05/23 08:41 Metoprolol Tartrate 25 Mg Tab PO 25 mg BID LIVAN Administration Naloxone HCl 0.2 mg 04/30/23 13:04 Naloxone 0.4 Mg/Ml 1 Ml Vial IV Q2M PRN Opioid Reversal Brexpiprazole [ 2 mg 04/30/23 13:08 05/03/23 21:46 Rexulti] 2 Mg Tablet PO 2 mg HS PRN Administration sleep/agitation Methenamine 1 gm 04/30/23 21:00 05/05/23 08:42 Hippurate [ PO 1 gm Methenamine BID LIVAN Administration Hippurate] 1 Gm Tablet) Non-Formulary Medication 50 mg 05/01/23 09:00 05/05/23 08:44 Mirabegron [Myrbetriq] PO Not Given DAILY [facility] Nystatin 1 applic 05/01/23 21:00 05/05/23 08:43 Nystatin 100,000 Unit/Gm Powd 15 Gm TOPICAL 1 applic BID LIVAN Administration Protocol Ondansetron HCl 4 mg 04/30/23 13:04 Ondansetron 4 Mg/2 Ml Vial IVP Q8HR PRN Nausea And Vomiting Pantoprazole Sodium 40 mg 04/30/23 17:30 05/05/23 06:37 Pantoprazole 40 Mg Tablet PO 40 mg AC-BID LIVAN Administration Pravastatin Sodium 80 mg 04/30/23 21:00 05/04/23 21:57 Pravastatin Sodium 80 Mg Tab PO 80 mg HS LIVAN Administration Rivaroxaban 15 mg 04/30/23 21:00 05/04/23 21:57 Rivaroxaban 15 Mg Tab PO 15 mg HS LIVAN Administration Protocol Vortioxetine 20 mg 05/01/23 09:00 05/05/23 08:41 Vortioxetine Hydrobromide 20 Mg Tablet PO 20 mg DAILY LIVAN Administration Intake and Output 05/04/23 05/05/23 05/05/23 22:59 06:59 14:59 Output Total 3200 Balance -3200 Output: Urine 3200 Other: Voiding Method External Catheter External Catheter # Voids 1 05/05/23 09:14 05/05/23 09:14
[2023-05-05 12:46] VITALS: BP 167/74; PULSE 62; RESP 16
--- NOTE | 2023-05-06 08:07 | P.DS ---
Providers Date of admission: 05/01/23 13:19 Attending physician: Zachery Linton MD Consults: 05/04/23 15:14 Consult Physician Urgent Consulting Provider: Clifford Menchaca Consult Reason/Comments: HTN Do you want consulting provider notified?: Yes Primary care physician: Maryann Jarvis Hospital Course: Diagnoses: Acute cystitis with history of recurrent UTI secondary to sensitive E. coli Metabolic encephalopathy secondary to above. with dementia, improved patient back to baseline Generalized weakness secondary to above patient could not go to rehab because she finish her days with her medical insurance provider Paroxysmal atrial fibrillation with rapid ventricular response, improved History of dementia hypertension, uncontrolled on admission, currently better controlled History of dyslipidemia Hospital course: 83-year-old patient with past medical history significant for paroxysmal atrial fibrillation, hypertension, hyperlipidemia, I put thyroid history of dementia presents to the emergency department with recurrent persistent weakness. Patient was recently admitted discharge on 04/02/2023 admitted for urinary tract infection and weakness. During previous hospitalization patient was also seen by cardiology secondary to A. fib and rapid ventricular response. Cardiac medications optimized, Patient presents back to the emergency department with weakness and fall. Patient lies care about while in the bathroom. Patient does have history of recurrent UTIs patient was brought in by son who is primary caregiver is well. Patient was found to have acute urinary tract infection secondary to sensitive E. coli and she responded to treatment with ceftriaxone and she was cleared for discharge short course of oral antibiotic. Also her hospital course was complicated by A. fib and RVR, patient evaluated by polysomnographic technologist and her heart rate is better controlled with adding metoprolol 25 mg and decrease her Cardizem dose to 240 mg by mouth daily. Patient then cleared for discharge by polysomnographic technologist. Patient is generally weak and would benefit from subacute rehab however she finish her days by her medical insurance provider, as such patient will be discharged home with home health care. As per staff his son does not ready for her to go to [facility] as placement. Because of this patient is high-risk for complication and readmission. Problems and management plan were discussed with the patient and he verbalized understanding and acceptance Patient was found stable and can be discharged home in guarded prognosis however he needs follow-up as an outpatient. Patient was instructed to follow up with PCP Dr. Jarvis within one week and patient agrees Patient was instructed to follow up with her polysomnographic technologist in 1 week. Also patient was instructed to follow up with urologist Dr. Mcintyre in 1-2 weeks because of her recurrent urinary tract infection Physical exam -Gen: patient is a alert awake and mildly confused at baseline, no distress. Generally weak CVS: S1-S2, RRR, no murmur Lungs: B/L CTA, no wheezing Abdomen: soft, no distention, no tenderness, positive bowel sounds Extremity: no leg edema or induration Time spent more than 35 minutes Patient Condition at Discharge: Stable Plan - Discharge Summary Discharge Rx Participant: No New Discharge Prescriptions: New Nystatin 100,000 Unit/gm Powd [Mycostatin Powder] 1 applic TOPICAL BID each Metoprolol Tartrate [Lopressor] 25 mg PO BID #60 tab lisinopriL [Zestril] 20 mg PO DAILY #30 tab cefUROXime axetiL [Ceftin] 500 mg PO BID 5 Days #10 tab Diltiazem Cd [Cardizem CD] 240 mg PO DAILY #30 cap Continue Levothyroxine Sodium [Synthroid] 150 mcg PO SUTUWETHSA Pravastatin Sodium [Pravachol] 80 mg PO HS Multivitamins, Thera [Multivitamin (formulary)] 1 tab PO DAILY Ferrous Sulfate [Iron (65 MG Elemental)] 325 mg PO DAILY Donepezil [Aricept] 10 mg PO DAILY Memantine [Namenda] 10 mg PO BID Mirabegron [Myrbetriq] 50 mg PO DAILY Rivaroxaban [Xarelto] 15 mg PO HS Pantoprazole [Protonix] 40 mg PO BID Levothyroxine Sodium [Synthroid] 125 mcg PO MOFR Vortioxetine Hydrobromide [Trintellix] 20 mg PO DAILY Acetaminophen Tab [Tylenol] 650 mg PO Q6HR PRN tab PRN Reason: Mild Pain Or Fever > 100.5 Sennosides-Docusate Sodium [Senokot-S] 1 tab PO HS Cyanocobalamin [Vitamin B-12] 500 mcg PO DAILY Nitroglycerin Sl Tabs [Nitrostat] 0.4 mg SL Q5M PRN PRN Reason: Chest Pain Methenamine Hippurate 1 gm PO BID Brexpiprazole [Rexulti] 2 mg PO HS PRN PRN Reason: sleep/agitation Changed Loratadine [Claritin] 10 mg PO DAILY PRN #0 PRN Reason: Sinus Symptoms Discontinued Diltiazem Cd [Cardizem CD] 180 mg PO DAILY cap lisinopriL [Zestril] 5 mg PO BID tab lisinopriL [Zestril] 10 mg PO DIRECTED Discharge Medication List Levothyroxine Sodium [Synthroid] 150 mcg PO SUTUWETHSA 09/30/13 [History] Pravastatin Sodium [Pravachol] 80 mg PO HS 11/07/14 [History] Multivitamins, Thera [Multivitamin (formulary)] 1 tab PO DAILY 06/01/18 [History] Ferrous Sulfate [Iron (65 MG Elemental)] 325 mg PO DAILY 06/16/18 [History] Donepezil [Aricept] 10 mg PO DAILY 06/22/21 [History] Memantine [Namenda] 10 mg PO BID 06/22/21 [History] Mirabegron [Myrbetriq] 50 mg PO DAILY 06/22/21 [History] Sennosides-Docusate Sodium [Senokot-S] 1 tab PO HS 06/22/21 [History] Cyanocobalamin [Vitamin B-12] 500 mcg PO DAILY 07/16/21 [History] Rivaroxaban [Xarelto] 15 mg PO HS 07/16/21 [History] Pantoprazole [Protonix] 40 mg PO BID 02/23/22 [History] Levothyroxine Sodium [Synthroid] 125 mcg PO MOFR 06/05/22 [History] Nitroglycerin Sl Tabs [Nitrostat] 0.4 mg SL Q5M PRN 06/05/22 [History] Vortioxetine Hydrobromide [Trintellix] 20 mg PO DAILY 06/05/22 [History] Methenamine Hippurate 1 gm PO BID 12/24/22 [History] Brexpiprazole [Rexulti] 2 mg PO HS PRN 03/29/23 [History] Acetaminophen Tab [Tylenol] 650 mg PO Q6HR PRN tab 04/02/23 [Rx] Loratadine [Claritin] 10 mg PO DAILY PRN #0 05/04/23 [Rx] Nystatin 100,000 Unit/gm Powd [Mycostatin Powder] 1 applic TOPICAL BID each 05/04/23 [Rx] cefUROXime axetiL [Ceftin] 500 mg PO BID 5 Days #10 tab 05/04/23 [Rx] Diltiazem Cd [Cardizem CD] 240 mg PO DAILY #30 cap 05/05/23 [Rx] Metoprolol Tartrate [Lopressor] 25 mg PO BID #60 tab 05/05/23 [Rx] lisinopriL [Zestril] 20 mg PO DAILY #30 tab 05/05/23 [Rx] Follow up Appointment(s)/Referral(s): [facility] [Provider Group] - 1 Week (Spoke to Laila. Office will call with appointment time) [facility] [REFERRING] - Jhonny Moreno MD [STAFF PHYSICIAN] - 1 Week (Office will call you with your appointment) Maryann Jarvis DO [Primary Care Provider] - 05/07/23 3:00 pm () [facility], [NON-STAFF] - As Needed Activity/Diet/Wound Care/Special Instructions: Heart healthy diet Activity as tolerated Discharge Disposition: HOME WITH HOME HEALTH SERVICES
[2023-05-06] MEDS ORDERED: DILTIAZEM CD 240 MG CAP.ER.24H PO SCH (09:00)
== END 2023-05-05 15:22 | disposition home health service (06) | DRG 689 ==
LOC: EC 10:32 → 4SSUR 13:04 → OBSVTOIN 05-01 13:19 → 3SCARD 05-04 21:51
PROVIDERS: ADMIT Internal Medicine; ATTEND Internal Medicine
DX: N30.00 Acute cystitis without hematuria (principal); G93.41 Metabolic encephalopathy; I48.19 Other persistent atrial fibrillation; R62.7 Adult failure to thrive; I10 Essential (primary) hypertension; F03.90 Unspecified dementia, unspecified severity, without behavioral disturbance, psychotic disturbance, mood disturbance, and anxiety; F32.A Depression, unspecified; J44.9 Chronic obstructive pulmonary disease, unspecified; R53.1 Weakness; E78.5 Hyperlipidemia, unspecified; B96.20 Unspecified Escherichia coli [E. coli] as the cause of diseases classified elsewhere; I48.0 Paroxysmal atrial fibrillation; I25.10 Atherosclerotic heart disease of native coronary artery without angina pectoris; I25.2 Old myocardial infarction; Z79.01 Long term (current) use of anticoagulants; Z79.890 Hormone replacement therapy; Z87.440 Personal history of urinary (tract) infections; Z87.891 Personal history of nicotine dependence; Z90.710 Acquired absence of both cervix and uterus; Z91.81 History of falling; Z96.641 Presence of right artificial hip joint; Z20.822 Contact with and (suspected) exposure to COVID-19; E03.9 Hypothyroidism, unspecified; I08.1 Rheumatic disorders of both mitral and tricuspid valves; M81.0 Age-related osteoporosis without current pathological fracture; Z87.01 Personal history of pneumonia (recurrent); Z79.899 Other long term (current) drug therapy; Z87.19 Personal history of other diseases of the digestive system; Z98.51 Tubal ligation status; Z86.010 Personal history of colon polyps; Z88.1 Allergy status to other antibiotic agents; Z88.5 Allergy status to narcotic agent; Z88.0 Allergy status to penicillin; Z86.14 Personal history of Methicillin resistant Staphylococcus aureus infection
CPT/HCPCS: 36415; 51701; 70450; 71046; 74177; 80048; 80053; 81001; 83605; 83735; 85025; 85027; 85610; 85730; 87040; 87077; 87086; 87186; 87636; 93005; 96361; 96365; 96375; 99285

== ENCOUNTER 2023-05-05 16:42 | Inpatient (IN) | payer MEDICARE, BC ==
[2023-05-05] MEDS ORDERED: MORPHINE SULFATE 4 MG/ML SYRINGE IV STA (17:50)
[2023-05-05] MEDS ORDERED: ONDANSETRON 4 MG/2 ML VIAL IVP STA (17:50)
[2023-05-05] MEDS ORDERED: SODIUM CHLORIDE 0.9% 500 ML 500 ML IV STA (17:50)
[2023-05-05] MEDS ORDERED: SODIUM CHLORIDE 0.9% 1,000 ML IV STA (17:50)
[2023-05-05] MEDS ORDERED: NALOXONE 0.4 MG/ML 1 ML VIAL IV PRN (17:50)
--- NOTE | 2023-05-05 18:32 | ED ---
Altered Mental Status HPI - General Chief Complaint: Altered Mental Status Stated Complaint: Weakness,Fever 103 Time Seen by Provider: 05/05/23 16:59 Source: patient, EMS, RN notes reviewed, old records reviewed, Caregiver Mode of arrival: EMS Limitations: no limitations - History of Present Illness Initial Comments: This is an 83-year-old female to the emergency department for evaluation regarding altered mental status and confusion, noticed fever with recent hospital admission for urinary tract infection, patient was discharged today was unable when she got home to get off the ambulance and stretcher. EMS brings patient back for significant debility and need for likely half-way placement MD Complaint: altered mental status, confusion, decreased responsiveness, weakness -: days(s) Severity: moderate Consistency of Symptoms: getting worse Context: history of similar presentation Associated Symptoms: weakness Treatments Prior to Arrival: IV fluid - Related Data Home Medications Medication Instructions Recorded Confirmed Levothyroxine Sodium [Synthroid] 150 mcg PO SUTUWETHSA 09/30/13 05/05/23 Pravastatin Sodium [Pravachol] 80 mg PO HS 11/07/14 05/05/23 Multivitamins, Thera [Multivitamin 1 tab PO DAILY 06/01/18 05/05/23 (formulary)] Ferrous Sulfate [Iron (65 MG 325 mg PO DAILY 06/16/18 05/05/23 Elemental)] Donepezil [Aricept] 10 mg PO DAILY 06/22/21 05/05/23 Memantine [Namenda] 10 mg PO BID 06/22/21 05/05/23 Mirabegron [Myrbetriq] 50 mg PO DAILY 06/22/21 05/05/23 Sennosides-Docusate Sodium 1 tab PO HS 06/22/21 05/05/23 [Senokot-S] Cyanocobalamin [Vitamin B-12] 500 mcg PO DAILY 07/16/21 05/05/23 Rivaroxaban [Xarelto] 15 mg PO HS 07/16/21 05/05/23 Pantoprazole [Protonix] 40 mg PO BID 02/23/22 05/05/23 Levothyroxine Sodium [Synthroid] 125 mcg PO MOFR 06/05/22 05/05/23 Nitroglycerin Sl Tabs [Nitrostat] 0.4 mg SL Q5M PRN 06/05/22 05/05/23 Vortioxetine Hydrobromide 20 mg PO DAILY 06/05/22 05/05/23 [Trintellix] Methenamine Hippurate 1 gm PO BID 12/24/22 05/05/23 Brexpiprazole [Rexulti] 2 mg PO HS PRN 03/29/23 05/05/23 Previous Rx's Medication Instructions Recorded Acetaminophen Tab [Tylenol] 650 mg PO Q6HR PRN tab 04/02/23 Loratadine [Claritin] 10 mg PO DAILY PRN #0 05/04/23 Nystatin 100,000 Unit/gm Powd 1 applic TOPICAL BID each 05/04/23 [Mycostatin Powder] Diltiazem Cd [Cardizem CD] 240 mg PO DAILY #30 cap 05/05/23 Metoprolol Tartrate [Lopressor] 25 mg PO BID #60 tab 05/05/23 lisinopriL [Zestril] 20 mg PO DAILY #30 tab 05/05/23 amLODIPine [Norvasc] 5 mg PO DAILY #0 tab 05/11/23 Allergies Allergy/AdvReac Type Severity Reaction Status Date / Time azithromycin Allergy Rash/Hives Verified 05/05/23 17:57 [From Zithromax Z-Chau] codeine Allergy Unknown Verified 05/05/23 17:57 hydrochlorothiazide Allergy Unknown Verified 05/05/23 17:57 [From Dyazide] lincomycin HCl Allergy Unknown Verified 05/05/23 17:57 [From Lincocin] meperidine HCl [From Demerol] Allergy Unknown Verified 05/05/23 17:57 metronidazole [From Flagyl] Allergy Unknown Verified 05/05/23 17:57 Metronidazole HCl Allergy Unknown Verified 05/05/23 17:57 [From Flagyl] nitrofurantoin Allergy Confusion Verified 05/05/23 17:57 [From Macrobid] Penicillins Allergy Unknown Verified 05/05/23 17:57 Childhood Lzhaxil-SET-ZzO Reductase Allergy Unknown Verified 05/05/23 17:57 Inhibitor Sulfa (Sulfonamide Allergy Unknown Verified 05/05/23 17:57 Antibiotics) tetracycline [Tetracycline] Allergy Unknown Verified 05/05/23 17:57 triamterene [From Dyazide] Allergy Unknown Verified 05/05/23 17:57 watermelon Allergy Swelling Verified 05/05/23 17:57 atorvastatin calcium AdvReac MUSCLE Verified 05/05/23 17:57 [From Lipitor] ACHES rosuvastatin calcium AdvReac MUSCLE Verified 05/05/23 17:57 [From Crestor] ACHES Review of Systems ROS Statement: Those systems with pertinent positive or pertinent negative responses have been documented in the HPI. ROS Other: All systems not noted in ROS Statement are negative. 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 Past Anesthesia/Blood Transfusion Reactions: No Reported Reaction Date of Last Stent Placement:: 2017 Past Psychological History: Depression Smoking Status: Former smoker Past Alcohol Use History: None Reported Past Drug Use History: None Reported - Past Family History Daughter(s) Family Medical History: Cancer Father History Unknown: Yes Additional Family Medical History / Comment(s): BRAIN TUMOR Mother Family Medical History: Cancer General Exam Limitations: no limitations General appearance: alert, in no apparent distress Head exam: Present: atraumatic, normocephalic, normal inspection Eye exam: Present: normal appearance, PERRL, EOMI. Absent: scleral icterus, c onjunctival injection, periorbital swelling ENT exam: Present: normal exam, mucous membranes moist Neck exam: Present: normal inspection. Absent: tenderness, meningismus, lymphadenopathy Respiratory exam: Present: normal lung sounds bilaterally. Absent: respiratory distress, wheezes, rales, rhonchi, stridor Cardiovascular Exam: Present: regular rate, normal rhythm, normal heart sounds. Absent: systolic murmur, diastolic murmur, rubs, gallop, clicks GI/Abdominal exam: Present: soft, normal bowel sounds. Absent: distended, tenderness, guarding, rebound, rigid Extremities exam: Present: normal inspection, full ROM, normal capillary refill. Absent: tenderness, pedal edema, joint swelling, calf tenderness Back exam: Present: normal inspection Neurological exam: Present: alert, oriented X3, CN II-XII intact Psychiatric exam: Present: normal affect, normal mood Skin exam: Present: warm, dry, intact, normal color. Absent: rash Course Vital Signs 05/05/23 05/05/23 05/05/23 16:50 20:40 21:00 Temperature 100.3 F H 98.8 F Pulse Rate 71 73 70 Pulse Rate [ Pulse Oximetery ] Respiratory 16 18 17 Rate Blood Pressure 191/91 151/59 151/59 Blood Pressure [Left Arm] O2 Sat by Pulse 96 92 L 91 L Oximetry 05/05/23 05/06/23 05/06/23 23:00 00:30 00:47 Temperature 98.6 F Pulse Rate 68 67 67 Pulse Rate [ Pulse Oximetery ] Respiratory 16 17 17 Rate Blood Pressure 138/54 Blood Pressure [Left Arm] O2 Sat by Pulse 91 L 91 L 95 Oximetry 05/06/23 05/06/23 01:30 02:00 Temperature 98.0 F Pulse Rate 67 Pulse Rate [ 84 Pulse Oximetery ] Respiratory 17 16 Rate Blood Pressure 138/54 Blood Pressure 167/81 [Left Arm] O2 Sat by Pulse 95 96 Oximetry - Reevaluation(s) Reevaluation #1: 05/05/23 21:03 Medical records reviewed Reevaluation #2: 05/05/23 21:03 Patient is gravely weak, debilitated Reevaluation #3: 05/05/23 21:03 Patient informed results questions answered Reevaluation #4: 05/05/23 21:04 Was pt. sent in by a medical professional or institution (, PA, CHEMICAL PROCESSING EQUIPMENT REPAIRER, urgent care, hospital, or half-way...) When possible be specific @ -no Did you speak to anyone other than the patient for history (EMS, parent, family, police, friend...)? What history was obtained from this source @ -no Did you review nursing and triage notes (agree or disagree)? Why? @ -agree Are old charts reviewed (outside hosp., previous admission, EMS record, old EKG, old radiological studies, urgent care reports/EKG's, half-way records)? Report findings @ -yes Differential Diagnosis (chest pain, altered mental status, abdominal pain women, abdominal pain men, vaginal bleeding, weakness, fever, dyspnea, syncope, headache, dizziness, GI bleed, back pain, seizure, CVA, palpatations, mental health, musculoskeletal)? @ -prior EKG interpreted by me (3pts min.). @ -yes X-rays interpreted by me (1pt min.). @ -yes negative for acute disease CT interpreted by me (1pt min.). @ -no U/S interpreted by me (1pt. min.). @ -no What testing was considered but not performed or refused? (CT, X-rays, U/S, labs)? Why? @ -none What meds were considered but not given or refused? Why? @ -none Did you discuss the management of the patient with other professionals (professionals i.e. , PA, CHEMICAL PROCESSING EQUIPMENT REPAIRER, lab, RT, psych nurse, perinatal social worker, call out clerk, teacher, security police officer, case specialist)? Give summary @ -no Was smoking cessation discussed for >3mins.? @ -no Was critical care preformed (if so, how long)? @ -no Were there social determinants of health that impacted care today? How? (Homelessness, low income, unemployed, alcoholism, drug addiction, molina sportation, low edu. Level, literacy, decrease access to med. care, senior living, rehab)? @ -none Was there de-escalation of care discussed even if they declined (Discuss DNR or withdrawal of care, Hospice)? DNR status @ -no What co-morbidities impacted this encounter? (DM, HTN, Smoking, COPD, CAD, Cancer, CVA, ARF, Chemo, Hep., AIDS, mental health diagnosis, sleep apnea, morbid obesity)? @ -none Was patient admitted / discharged? Hospital course, mention meds given and route, prescriptions, significant lab abnormalities, going to OR and other pertinent info. @ - 83 female to the emergency department for evaluation, patient will be admitted for severe weakness and debility. Need for placement, patient does have persistent fever and will be placed on IV antibiotics for persistent urinary tract infection bacteremia Admitted Undiagnosed new problem with uncertain prognosis? @ -no Drug Therapy requiring intensive monitoring for toxicity (Heparin, Nitro, Insulin, Cardizem)? @ -no Were any procedures done? @ -no Diagnosis/symptom? @ -Weakness, debility, fever and UTI Acute, or Chronic, or Acute on Chronic? @ -Acute Uncomplicated (without systemic symptoms) or Complicated (systemic symptoms)? @ -Complicated Side effects of treatment? @ -no Exacerbation, Progression, or Severe Exacerbation? @ -exacerbation Poses a threat to life or bodily function? How? (Chest pain, USA, GA, pneumonia, PE, COPD, DKA, ARF, appy, cholecystitis, CVA, Diverticulitis, Homicidal, Suicidal, threat to staff... and all critical care pts) @ -yes extremes of age Reevaluation #5: 05/05/23 21:04 Differential Weakness: Hypoglycemia, shock, sepsis, hyponatremia, anemia, infection, GA, ETOH, adverse medicine reaction, overdose, stroke, this is not meant to be an all-inclusive list. Differential Fever: Pneumonia, viral URI, endocarditis, myocarditis, pericarditis, otitis, sinusitis, peritonsillar Abscess, retropharyngeal Abscess, epiglottitis, peritonitis, appendicitis, Shanna cystitis, diverticulitis, hepatitis, colitis, UTI, PID, TOA, pyelonephritis, prostatitis, epididymitis, meningitis, encephalitis, pulmonary embolism, CVA, thyroid storm, pancreatitis, adrenal crisis, cavernous sinus thrombosis, this is not meant to be an all-inclusive list. - Consultations Consultation #1: Spoke with [facility] will admit this patient Medical Decision Making - Medical Decision Making 83 female to the emergency department for evaluation, patient will be admitted for severe weakness and debility. Need for placement, patient does have persistent fever and will be placed on IV antibiotics for persistent urinary tract infection bacteremia - Lab Data Result diagrams: 05/07/23 08:45 05/07/23 08:45 - EKG Data -: EKG Interpreted by Me (EKG is sinus rhythm 66 CO 167 QRS 84 QTc 407) - Radiology Data Radiology results: report reviewed (Chest x-rays negative for acute disease), image reviewed Disposition Clinical Impression: Delirium due to general medical condition, Weakness, Debility, Fever, UTI (urinary tract infection) Disposition: ADMITTED IP TO THIS HOSP Condition: Stable Is patient prescribed a controlled substance at d/c from ED?: No Time of Disposition: 18:00
[2023-05-05 19:16] LABS: Basophils # (A) 0.1 k/uL (0-0.2); Basophils % (A) 1 %; Eosinophils # (A) 0.2 k/uL (0-0.7); Eosinophils % (A) 2 %; HCT 47.5 % (34.0-46.0); HGB 15.8 gm/dL (11.4-16.0); Lymphocytes # (A) 1.2 k/uL (1.0-4.8); Lymphocytes % (A) 10 %; MCH 30.8 pg (25.0-35.0); MCHC 33.3 g/dL (31.0-37.0); MCV 92.5 fL (80.0-100.0); Monocytes # (A) 0.9 k/uL (0-1.0); Monocytes % (A) 7 %; Neutrophils # (A) 9.8 k/uL (1.3-7.7); Neutrophils % (A) 80 %; Platelet Count 247 k/uL (150-450); RBC 5.14 m/uL (3.80-5.40); RDW 13.4 % (11.5-15.5); WBC 12.2 k/uL (3.8-10.6)
[2023-05-05 19:26] LABS: INR 1.1 (<1.2); Partial Thromboplastin Time 31.7 sec (22.0-30.0); Prothrombin Time 11.9 sec (10.0-12.5)
[2023-05-05 19:33] LABS: ALT 12 U/L (4-34); AST 16 U/L (14-36); African American GFR (CKD) 74 (>60 ml/min/1.73 sqM); Albumin 3.9 g/dL (3.5-5.0); Alkaline Phosphatase 112 U/L (38-126); Anion Gap 8 mmol/L; Blood Urea Nitrogen 33 mg/dL (7-17); Calcium 10.8 mg/dL (8.4-10.2); Carbon Dioxide 28 mmol/L (22-30); Chloride 105 mmol/L (98-107); Glucose 130 mg/dL (74-99); Magnesium 2.2 mg/dL (1.6-2.3); Non-African American GFR(CKD) 64 (>60 ml/min/1.73 sqM); Phosphorus 3.3 mg/dL (2.5-4.5); Potassium 4.1 mmol/L (3.5-5.1); Sodium 141 mmol/L (137-145); Total Bilirubin 0.7 mg/dL (0.2-1.3)
[2023-05-05 19:42] LABS: NT-Pro-B-Type Natriuretic Pept 1210 pg/mL
--- NOTE | 2023-05-05 21:26 | XR ---
EXAMINATION TYPE: XR chest 1V portable DATE OF EXAM: 05/05/2023 9:20 PM CLINICAL INDICATION:Female, 83 years old with history of weak; [facility] COMPARISON: Chest radiographs from 04/30/2023 TECHNIQUE: XR chest 1V portable Frontal view of the chest. FINDINGS: Lungs/Pleura: There is no evidence of pleural effusion, focal consolidation, or pneumothorax. Pulmonary vascularity: Unremarkable. Heart/mediastinum: Cardiomediastinal silhouette is enlarged and stable. Musculoskeletal: No acute osseous pathology. IMPRESSION: No acute cardiopulmonary disease/process.
[2023-05-06] MEDS ORDERED: LORATADINE 10 MG TAB PO PRN (09:29)
[2023-05-06] MEDS ORDERED: REXULTI (Brexpiprazole) 2 MG Tablet PO PRN (09:29)
[2023-05-06] MEDS: PANTOPRAZOLE 40 MG TABLET PO SCH ×2 (10:34→20:15)
[2023-05-06] MEDS: VORTIOXETINE HYDROBROMIDE 20 MG TABLET PO SCH (10:34)
[2023-05-06] MEDS: CYANOCOBALAMIN 500 MCG TAB PO SCH (10:34)
[2023-05-06] MEDS: NYSTATIN 100,000 UNIT/GM POWD 15 GM TOPICAL SCH ×2 (10:34→20:16)
[2023-05-06] MEDS: MEMANTINE 10 MG TAB PO SCH ×2 (10:34→20:15)
[2023-05-06] MEDS: DILTIAZEM CD 240 MG CAP.ER.24H PO SCH (10:34)
[2023-05-06] MEDS: METOPROLOL TARTRATE 25 MG TAB PO SCH ×2 (10:35→20:15)
[2023-05-06] MEDS: DONEPEZIL 10 MG TAB PO SCH (10:35)
[2023-05-06] MEDS: Methenamine Hippurate 1 GM Tablet PO SCH ×2 (10:35→20:16)
[2023-05-06] MEDS: lisinopriL 20 MG TAB PO SCH (10:35)
[2023-05-06] MEDS: MULTIVITAMINS, THERA 1 EACH TAB PO SCH (10:35)
[2023-05-06] MEDS: FERROUS SULFATE 325 MG TAB PO SCH (10:35)
[2023-05-06] MEDS: LEVOTHYROXINE 75 MCG TAB PO SCH (10:37)
[2023-05-06 11:04] LABS: Basophils # (A) 0.04 X 10*3/uL (0.00-0.10); Basophils % (A) 0.6 %; Eosinophils # (A) 0.14 X 10*3/uL (0.04-0.35); Lymphocytes # (A) 1.02 X 10*3/uL (0.90-5.00); Lymphocytes % (A) 14.3 %; MCH 30.7 pg (27.0-32.0); MCHC 32.5 g/dL (32.0-37.0); MCV 94.3 FL (80.0-97.0); Mean Platelet Volume 12.5 FL (9.5-12.2); Monocytes # (A) 0.77 X 10*3/uL (0.20-1.00); Monocytes % (A) 10.8 %; NRBC Per 100 WBC 0 X 10*3/uL (0.00-0.01); Neutrophils # (A) 5.11 X 10*3/uL (1.80-7.70); Neutrophils % (A) 71.7 %; Platelet Count 187 X 10*3/uL (140-440); RBC 4.24 X 10*6/uL (4.10-5.20); RDW 13.6 % (11.5-14.5); WBC 7.12 X 10*3/uL (4.50-10.00)
[2023-05-06 11:14] LABS: ALT 6 U/L (8-44); AST 9 U/L (13-35); Albumin 3.2 g/dL (3.8-4.9); Albumin/Globulin Ratio 1.45 Ratio (1.60-3.17); Alkaline Phosphatase 85 U/L (41-126); BUN/Creat Ratio 36.71 Ratio (12.00-20.00); Blood Urea Nitrogen 25.7 mg/dL (9.0-27.0); Calcium 10.1 mg/dL (8.7-10.3); Carbon Dioxide 26.2 mmol/L (21.6-31.8); Chloride 111 mmol/L (96-109); Globulin 2.2 g/dL (1.6-3.3); Glucose 116 mg/dL (70-110); Potassium 4.2 mmol/L (3.5-5.5); Sodium 145 mmol/L (135-145); Total Bilirubin 0.5 mg/dL (0.3-1.2); Total Protein 5.4 g/dL (6.2-8.2)
[2023-05-06 15:11] LABS: Appearance,Urine Clear (Clear); Bilirubin,Urine Negative (Negative); Blood,Urine Negative (Negative); Color,Urine Orange; Glucose,Urine (UA) Negative (Negative); Ketones,Urine Negative (Negative); Leukocyte Esterase,Urine Small (Negative); Nitrite,Urine Negative (Negative); Protein,Urine Trace (Negative); Urobilinogen,Urine 0.2 mg/dL (<2.0)
[2023-05-06 15:15] LABS: Amorphous Sediment,Urine Rare /hpf; Budding Yeast,Urine Occasional /hpf; Hyaline Casts,Urine 1 /lpf (0-2); RBC,Urine 7 /hpf (0-5); Squamous Epithelial Cell,Urine 3 /hpf (0-4); WBC,Urine 86 /hpf (0-5)
[2023-05-06] MEDS: hydrALAZINE HCL 20 MG/ML 1 ML VIAL IVP PRN ×2 (15:16→21:02)
[2023-05-06] MEDS: PRAVASTATIN SODIUM 80 MG TAB PO SCH (20:15)
[2023-05-06] MEDS: RIVAROXABAN 15 MG TAB PO SCH (20:15)
[2023-05-06] MEDS: SENNOSIDES-DOCUSATE SODIUM 1 EACH TAB PO SCH (20:15)
[2023-05-07] MEDS: hydrALAZINE HCL 20 MG/ML 1 ML VIAL IVP PRN (02:38)
[2023-05-07] MEDS: LEVOTHYROXINE 75 MCG TAB PO SCH (05:39)
[2023-05-07] MEDS: METOPROLOL TARTRATE 25 MG TAB PO SCH ×2 (05:39→20:14)
[2023-05-07 09:12] LABS: Basophils # (A) 0.1 k/uL (0-0.2); Basophils % (A) 1 %; Eosinophils # (A) 0.1 k/uL (0-0.7); Eosinophils % (A) 1 %; HCT 42.6 % (34.0-46.0); HGB 14.4 gm/dL (11.4-16.0); Lymphocytes # (A) 1.1 k/uL (1.0-4.8); Lymphocytes % (A) 12 %; MCH 31.5 pg (25.0-35.0); MCHC 33.9 g/dL (31.0-37.0); MCV 92.9 fL (80.0-100.0); Mean Platelet Volume 9.5; Monocytes # (A) 0.6 k/uL (0-1.0); Monocytes % (A) 6 %; Neutrophils # (A) 7.8 k/uL (1.3-7.7); Neutrophils % (A) 80 %; Platelet Count 222 k/uL (150-450); RBC 4.58 m/uL (3.80-5.40); RDW 13.5 % (11.5-15.5); WBC 9.7 k/uL (3.8-10.6)
[2023-05-07 09:32] LABS: African American GFR (CKD) >90 (>60 ml/min/1.73 sqM); Anion Gap 8 mmol/L; Blood Urea Nitrogen 19 mg/dL (7-17); Calcium 10.4 mg/dL (8.4-10.2); Carbon Dioxide 25 mmol/L (22-30); Chloride 107 mmol/L (98-107); Glucose 122 mg/dL (74-99); Non-African American GFR(CKD) 84 (>60 ml/min/1.73 sqM); Potassium 3.9 mmol/L (3.5-5.1); Sodium 140 mmol/L (137-145)
--- NOTE | 2023-05-07 09:33 | P.HPIM ---
History of Present Illness This is a pleasant 83-year-old patient with past medical history significant for paroxysmal atrial fibrillation, hypertension, hyperlipidemia, I put thyroid history of dementia presents to the emergency department with recurrent p ersistent weakness. Patient was recently admitted discharge on 04/02/2023 admitted for urinary tract infection and weakness. During previous hospitalization patient was also seen by cardiology secondary to A. fib and rapid ventricular response. Cardiac medications optimized She initially came because of weakness and fall and found to have urinary tract infection with metabolic encephalopathy on the top of her dementia. She was treated with ceftriaxone based on urine culture showing sensitive E. coli. Patient showed interval improvement and she was about to be discharged when she developed A. fib and RVR and mill hand plate mill evaluated the patient with her Cardizem dose was increased 180 up to 240 mg and metoprolol 25 mg was added. Physical therapy recommended subacute rehab but patient could not be placed in one of them ECF because she finished her days with her insurance provider, as an alternative we sent her home with home care as the son was at bedside did not feel he is ready to put his mother in a halfway Patient currently poor historian but it looks like once patient went home her son could not take care of her and she had to come to the emergency room for replacement. Patient currently somewhat confused which looks at baseline, she moves extremities symmetrically, denies any specific complaints. Review of Systems Review of systems CONSTITUTIONAL: No fever, no malaise, no fatigue. HEENT: No recent visual problems or hearing problems. Denied any sore throat. CARDIOVASCULAR: No orthopnea, PND, no palpitations, no syncope. PULMONARY: No shortness of breath, no cough, no hemoptysis. GASTROINTESTINAL: No diarrhea, no nausea, no vomiting, no abdominal pain. Normoactive bowel sounds. NEUROLOGICAL: No headaches, no weakness, no numbness. HEMATOLOGICAL: Denies any bleeding or petechiae. GENITOURINARY: Denies any burning micturition, frequency, or urgency. MUSCULOSKELETAL/RHEUMATOLOGICAL: Denies any joint pain, swelling, or any muscle pain. ENDOCRINE: Denies any polyuria or polydipsia. 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 Past Anesthesia/Blood Transfusion Reactions: No Reported Reaction Date of Last Stent Placement:: 2017 Past Psychological History: Depression Smoking Status: Former smoker Past Alcohol Use History: None Reported Past Drug Use History: None Reported - Past Family History Daughter(s) Family Medical History: Cancer Father History Unknown: Yes Additional Family Medical History / Comment(s): BRAIN TUMOR Mother Family Medical History: Cancer Medications and Allergies Home Medications Medication Instructions Recorded Confirmed Type Levothyroxine Sodium [Synthroid] 150 mcg PO SUTUWETHSA 09/30/13 05/05/23 History Pravastatin Sodium [Pravachol] 80 mg PO HS 11/07/14 05/05/23 History Multivitamins, Thera [Multivitamin 1 tab PO DAILY 06/01/18 05/05/23 History (formulary)] Ferrous Sulfate [Iron (65 MG 325 mg PO DAILY 06/16/18 05/05/23 History Elemental)] Donepezil [Aricept] 10 mg PO DAILY 06/22/21 05/05/23 History Memantine [Namenda] 10 mg PO BID 06/22/21 05/05/23 History Mirabegron [Myrbetriq] 50 mg PO DAILY 06/22/21 05/05/23 History Sennosides-Docusate Sodium 1 tab PO HS 06/22/21 05/05/23 History [Senokot-S] Cyanocobalamin [Vitamin B-12] 500 mcg PO DAILY 07/16/21 05/05/23 History Rivaroxaban [Xarelto] 15 mg PO HS 07/16/21 05/05/23 History Pantoprazole [Protonix] 40 mg PO BID 02/23/22 05/05/23 History Levothyroxine Sodium [Synthroid] 125 mcg PO MOFR 06/05/22 05/05/23 History Nitroglycerin Sl Tabs [Nitrostat] 0.4 mg SL Q5M PRN 06/05/22 05/05/23 History Vortioxetine Hydrobromide 20 mg PO DAILY 06/05/22 05/05/23 History [Trintellix] Methenamine Hippurate 1 gm PO BID 12/24/22 05/05/23 History Brexpiprazole [Rexulti] 2 mg PO HS PRN 03/29/23 05/05/23 History Acetaminophen Tab [Tylenol] 650 mg PO Q6HR PRN tab 04/02/23 05/05/23 Rx Loratadine [Claritin] 10 mg PO DAILY PRN #0 05/04/23 05/05/23 Rx Nystatin 100,000 Unit/gm Powd 1 applic TOPICAL BID each 05/04/23 05/05/23 Rx [Mycostatin Powder] cefUROXime axetiL [Ceftin] 500 mg PO BID 5 Days #10 tab 05/04/23 05/05/23 Rx Diltiazem Cd [Cardizem CD] 240 mg PO DAILY #30 cap 05/05/23 05/05/23 Rx Metoprolol Tartrate [Lopressor] 25 mg PO BID #60 tab 05/05/23 05/05/23 Rx lisinopriL [Zestril] 20 mg PO DAILY #30 tab 05/05/23 05/05/23 Rx Allergies Allergy/AdvReac Type Severity Reaction Status Date / Time azithromycin Allergy Rash/Hives Verified 05/05/23 17:57 [From Zithromax Z-Chau] codeine Allergy Unknown Verified 05/05/23 17:57 hydrochlorothiazide Allergy Unknown Verified 05/05/23 17:57 [From Dyazide] lincomycin HCl Allergy Unknown Verified 05/05/23 17:57 [From Lincocin] meperidine HCl [From Demerol] Allergy Unknown Verified 05/05/23 17:57 metronidazole [From Flagyl] Allergy Unknown Verified 05/05/23 17:57 Metronidazole HCl Allergy Unknown Verified 05/05/23 17:57 [From Flagyl] nitrofurantoin Allergy Confusion Verified 05/05/23 17:57 [From Macrobid] Penicillins Allergy Unknown Verified 05/05/23 17:57 Childhood [id number]-YVD-YzA Reductase Allergy Unknown Verified 05/05/23 17:57 Inhibitor Sulfa (Sulfonamide Allergy Unknown Verified 05/05/23 17:57 Antibiotics) tetracycline [Tetracycline] Allergy Unknown Verified 05/05/23 17:57 triamterene [From Dyazide] Allergy Unknown Verified 05/05/23 17:57 watermelon Allergy Swelling Verified 05/05/23 17:57 atorvastatin calcium AdvReac MUSCLE Verified 05/05/23 17:57 [From Lipitor] ACHES rosuvastatin calcium AdvReac MUSCLE Verified 05/05/23 17:57 [From Crestor] ACHES Physical Exam Vitals: Vital Signs Temp Pulse Pulse Resp BP BP Pulse Ox 05/06/23 07:02 98.2 F 63 16 185/73 98 05/06/23 02:00 98.0 F 84 16 167/81 96 05/06/23 01:30 67 17 138/54 95 05/06/23 00:47 98.6 F 67 17 95 05/06/23 00:30 67 17 138/54 91 L 05/05/23 23:00 68 16 91 L 05/05/23 21:00 70 17 151/59 91 L 05/05/23 20:40 98.8 F 73 18 151/59 92 L 05/05/23 16:50 100.3 F H 71 16 191/91 96 Intake and Output 05/05/23 05/06/23 05/06/23 22:59 06:59 14:59 Other: # Voids 1 Weight 99.79 kg -GENERAL: The patient is confused, answers questions and follows commands, not in any acute distress. Well developed, well nourished. HEENT: Pupils are round and equally reacting to light. EOMI. No scleral icterus. No conjunctival pallor. Normocephalic, atraumatic. No pharyngeal erythema. No thyromegaly. CARDIOVASCULAR: S1 and S2 present. No murmurs, rubs, or gallops. PULMONARY: Chest is clear to auscultation, no wheezing , no crackles. ABDOMEN: Soft, nontender, nondistended, normoactive bowel sounds. No palpable organomegaly. MUSCULOSKELETAL: No joint swelling or deformity. EXTREMITIES: No cyanosis, clubbing, or pedal edema. NEUROLOGICAL: Gross neurological examination did not reveal any focal deficits. SKIN: No rashes. no petechiae. Results CBC & Chem 7: 05/07/23 08:45 05/06/23 06:49 Labs: Abnormal Lab Results - Last 24 Hours (Table) 05/05/23 05/05/23 05/05/23 Range/Units 18:45 18:45 18:45 WBC 12.2 H (3.8-10.6) k/uL Hct 47.5 H (34.0-46.0) % Neutrophils # 9.8 H (1.3-7.7) k/uL APTT 31.7 H (22.0-30.0) sec BUN 33 H (7-17) mg/dL Glucose 130 H (74-99) mg/dL Calcium 10.8 H (8.4-10.2) mg/dL Assessment and Plan Assessment: Generalized weakness requiring placement Recent Acute cystitis with history of recurrent UTI during previous admission re quiring to finish her course of abx Metabolic encephalopathy secondary to above Generalized weakness secondary to above Chronic atrial fibrillation with history of rapid ventricular response dementia hypertension, uncontrolled on admission dyslipidemia Plan: Continue antibiotic based on a previous culture deer 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 Continue same treatment. Continue with symptomatic treatment. Resume home medication. Monitor labs and vitals. DVT and GI prophylaxis. Further recommendations as per clinical course of the patient DVT prophylaxis: xarelto GI Prophylaxis: Ppi Long-term Prognosis is guarded
[2023-05-07] MEDS: DILTIAZEM CD 240 MG CAP.ER.24H PO SCH (09:45)
[2023-05-07] MEDS: DONEPEZIL 10 MG TAB PO SCH (09:46)
[2023-05-07] MEDS: NYSTATIN 100,000 UNIT/GM POWD 15 GM TOPICAL SCH ×2 (09:46→20:17)
[2023-05-07] MEDS: FERROUS SULFATE 325 MG TAB PO SCH (09:46)
[2023-05-07] MEDS: MEMANTINE 10 MG TAB PO SCH ×2 (09:46→20:15)
[2023-05-07] MEDS: lisinopriL 20 MG TAB PO SCH (09:46)
[2023-05-07] MEDS: VORTIOXETINE HYDROBROMIDE 20 MG TABLET PO SCH (09:46)
[2023-05-07] MEDS: MULTIVITAMINS, THERA 1 EACH TAB PO SCH (09:46)
[2023-05-07] MEDS: PANTOPRAZOLE 40 MG TABLET PO SCH ×2 (09:46→20:14)
[2023-05-07] MEDS: CYANOCOBALAMIN 500 MCG TAB PO SCH (09:46)
[2023-05-07] MEDS: Methenamine Hippurate 1 GM Tablet PO SCH ×3 (10:01→20:17)
[2023-05-07] MEDS: SENNOSIDES-DOCUSATE SODIUM 1 EACH TAB PO SCH (20:14)
[2023-05-07] MEDS: PRAVASTATIN SODIUM 80 MG TAB PO SCH (20:15)
[2023-05-07] MEDS: RIVAROXABAN 15 MG TAB PO SCH (20:15)
--- NOTE | 2023-05-07 21:44 | P.PN ---
Subjective Progress Note Date: 05/07/23 This is a pleasant 83-year-old patient with past medical history significant for paroxysmal atrial fibrillation, hypertension, hyperlipidemia, I put thyroid history of dementia presents to the emergency department with recurrent persistent weakness. Patient was recently admitted discharge on 04/02/2023 a dmitted for urinary tract infection and weakness. During previous hospitalization patient was also seen by cardiology secondary to A. fib and rapid ventricular response. Cardiac medications optimized She initially came because of weakness and fall and found to have urinary tract infection with metabolic encephalopathy on the top of her dementia. She was treated with ceftriaxone based on urine culture showing sensitive E. coli. Patient showed interval improvement and she was about to be discharged when she developed A. fib and RVR and security representative evaluated the patient with her Cardizem dose was increased 180 up to 240 mg and metoprolol 25 mg was added. Physical therapy recommended subacute rehab but patient could not be placed in one of them ECF because she finished her days with her insurance provider, as an alternative we sent her home with home care as the son was at bedside did not feel he is ready to put his mother in a alf Patient currently poor historian but it looks like once patient went home her son could not take care of her and she had to come to the emergency room for replacement. Patient currently somewhat confused which looks at baseline, she moves extre mities symmetrically, denies any specific complaints. 05/07/2023 Patient resting in bed today with no acute complaints. Pending input from APS and discharge planning to ECF with social work. Review of systems CONSTITUTIONAL: No fever, no malaise, no fatigue. HEENT: No recent visual problems or hearing problems. Denied any sore throat. CARDIOVASCULAR: No orthopnea, PND, no palpitations, no syncope. PULMONARY: No shortness of breath, no cough, no hemoptysis. GASTROINTESTINAL: No diarrhea, no nausea, no vomiting, no abdominal pain. Normoactive bowel sounds. NEUROLOGICAL: No headaches, no weakness, no numbness. Physical Examination -GENERAL: The patient is confused, answers questions and follows commands, not in any acute distress. Well developed, well nourished. HEENT: Pupils are round and equally reacting to light. EOMI. No scleral icterus. No conjunctival pallor. Normocephalic, atraumatic. No pharyngeal erythema. No thyromegaly. CARDIOVASCULAR: S1 and S2 present. No murmurs, rubs, or gallops. PULMONARY: Chest is clear to auscultation, no wheezing , no crackles. ABDOMEN: Soft, nontender, nondistended, normoactive bowel sounds. No palpable organomegaly. MUSCULOSKELETAL: No joint swelling or deformity. EXTREMITIES: No cyanosis, clubbing, or pedal edema. NEUROLOGICAL: Gross neurological examination did not reveal any focal deficits. SKIN: No rashes. no petechiae. Assessment Generalized weakness requiring placement Recent Acute cystitis with history of recurrent UTI during previous admission requiring to finish her course of abx Metabolic encephalopathy secondary to above Generalized weakness secondary to above Chronic atrial fibrillation with history of rapid ventricular response dementia hypertension, uncontrolled on admission dyslipidemia GI prophylaxis DVT prophylaxis Full Code Plan Continue antibiotic based on a previous culture hide and skin processing worker consult for placement to alf and APS consultation. Continue with ceftriaxone Continue with blood thinner Labs and medication were reviewed. The impression and plan of care has been dictated by Catherine Yee Nurse Practitioner as directed. Dr. Nadia MD I have performed a history and physical examination and medical decision making of this patient, discussed the same with the dictator, and agree with the dictators assessment and plan as written, documented as a scribe. Based on total visit time, I have performed more than 50% of this visit. Objective - Vital Signs Vital signs: Vital Signs Temp 98.3 F 05/07/23 20:00 Pulse 66 05/07/23 20:00 Resp 16 05/07/23 20:00 BP 162/62 05/07/23 20:00 Pulse Ox 90 L 05/07/23 20:00 FiO2 21 05/07/23 15:40 Intake & Output 05/07/23 05/07/23 05/08/23 06:59 18:59 06:59 Output Total 600 Balance -600 Output: Urine 600 Other: # Voids 0 - Labs CBC & Chem 7: 05/07/23 08:45 05/07/23 08:45 Labs: Abnormal Lab Results - Last 24 Hours (Table) 05/07/23 05/07/23 Range/Units 08:45 08:45 Neutrophils # 7.8 H (1.3-7.7) k/uL BUN 19 H (7-17) mg/dL Glucose 122 H (74-99) mg/dL Calcium 10.4 H (8.4-10.2) mg/dL Assessment and Plan Time with Patient: Less than 30
[2023-05-08] MEDS: LEVOTHYROXINE 125 MCG TAB PO SCH (05:33)
[2023-05-08] MEDS: PANTOPRAZOLE 40 MG TABLET PO SCH ×2 (08:31→21:51)
[2023-05-08] MEDS: METOPROLOL TARTRATE 25 MG TAB PO SCH ×2 (08:31→21:51)
[2023-05-08] MEDS: FERROUS SULFATE 325 MG TAB PO SCH (08:31)
[2023-05-08] MEDS: MULTIVITAMINS, THERA 1 EACH TAB PO SCH (08:31)
[2023-05-08] MEDS: lisinopriL 20 MG TAB PO SCH (08:31)
[2023-05-08] MEDS: CYANOCOBALAMIN 500 MCG TAB PO SCH (08:31)
[2023-05-08] MEDS: DONEPEZIL 10 MG TAB PO SCH (08:31)
[2023-05-08] MEDS: VORTIOXETINE HYDROBROMIDE 20 MG TABLET PO SCH (08:32)
[2023-05-08] MEDS: MEMANTINE 10 MG TAB PO SCH ×2 (08:32→21:51)
[2023-05-08] MEDS: DILTIAZEM CD 240 MG CAP.ER.24H PO SCH (08:32)
[2023-05-08] MEDS: NYSTATIN 100,000 UNIT/GM POWD 15 GM TOPICAL SCH ×2 (08:33→21:51)
[2023-05-08] MEDS: hydrALAZINE HCL 20 MG/ML 1 ML VIAL IVP PRN (08:33)
[2023-05-08] MEDS: Methenamine Hippurate 1 GM Tablet PO SCH ×2 (08:34→21:51)
[2023-05-08] MEDS: RIVAROXABAN 15 MG TAB PO SCH (21:51)
[2023-05-08] MEDS: SENNOSIDES-DOCUSATE SODIUM 1 EACH TAB PO SCH (21:51)
[2023-05-08] MEDS: PRAVASTATIN SODIUM 80 MG TAB PO SCH (21:51)
--- NOTE | 2023-05-08 23:39 | P.PN ---
Subjective Progress Note Date: 05/08/23 This is a pleasant 83-year-old patient with past medical history significant for paroxysmal atrial fibrillation, hypertension, hyperlipidemia, I put thyroid history of dementia presents to the emergency department with recurrent persistent weakness. Patient was recently admitted discharge on 04/02/2023 a dmitted for urinary tract infection and weakness. During previous hospitalization patient was also seen by cardiology secondary to A. fib and rapid ventricular response. Cardiac medications optimized She initially came because of weakness and fall and found to have urinary tract infection with metabolic encephalopathy on the top of her dementia. She was treated with ceftriaxone based on urine culture showing sensitive E. coli. Patient showed interval improvement and she was about to be discharged when she developed A. fib and RVR and bath design sales consultant evaluated the patient with her Cardizem dose was increased 180 up to 240 mg and metoprolol 25 mg was added. Physical therapy recommended subacute rehab but patient could not be placed in one of them ECF because she finished her days with her insurance provider, as an alternative we sent her home with home care as the son was at bedside did not feel he is ready to put his mother in a long term Patient currently poor historian but it looks like once patient went home her son could not take care of her and she had to come to the emergency room for replacement. Patient currently somewhat confused which looks at baseline, she moves extre mities symmetrically, denies any specific complaints. 05/07/2023 Patient resting in bed today with no acute complaints. Pending input from APS and discharge planning to ECF with social work. 05/08/2023 Patients daughter and son at the bedside are updataed on the plan of care. Currently awaiting follow up from social work regarding DC planning. Her most recent UA this hospital stay has overall improved. Patient requires ECF. [facility] referral placed. Review of systems CONSTITUTIONAL: No fever, no malaise, no fatigue. HEENT: No recent visual problems or hearing problems. Denied any sore throat. CARDIOVASCULAR: No orthopnea, PND, no palpitations, no syncope. PULMONARY: No shortness of breath, no cough, no hemoptysis. GASTROINTESTINAL: No diarrhea, no nausea, no vomiting, no abdominal pain. Normoactive bowel sounds. NEUROLOGICAL: No headaches, no weakness, no numbness. Physical Examination -GENERAL: The patient is confused, answers questions and follows commands, not in any acute distress. Well developed, well nourished. HEENT: Pupils are round and equally reacting to light. EOMI. No scleral icterus. No conjunctival pallor. Normocephalic, atraumatic. No pharyngeal erythema. No thyromegaly. CARDIOVASCULAR: S1 and S2 present. No murmurs, rubs, or gallops. PULMONARY: Chest is clear to auscultation, no wheezing , no crackles. ABDOMEN: Soft, nontender, nondistended, normoactive bowel sounds. No palpable organomegaly. MUSCULOSKELETAL: No joint swelling or deformity. EXTREMITIES: No cyanosis, clubbing, or pedal edema. NEUROLOGICAL: Gross neurological examination did not reveal any focal deficits. SKIN: No rashes. no petechiae. Assessment Generalized weakness requiring placement Recent Acute cystitis with history of recurrent UTI during previous admission requiring to finish her course of abx Metabolic encephalopathy secondary to above Generalized weakness secondary to above Chronic atrial fibrillation with history of rapid ventricular response dementia hypertension, uncontrolled on admission dyslipidemia GI prophylaxis DVT prophylaxis Full Code Plan Continue antibiotic based on a previous culture dam worker consult for placement to long term and APS consultation. Continue with ceftriaxone Continue with blood thinner Labs and medication were reviewed. The impression and plan of care has been dictated by Catherine Yee Nurse Practitioner as directed. Dr. Nadia MD I have performed a history and physical examination and medical decision making of this patient, discussed the same with the dictator, and agree with the dictators assessment and plan as written, documented as a scribe. Based on total visit time, I have performed more than 50% of this visit. Objective - Vital Signs Vital signs: Vital Signs Temp 99.1 F 05/08/23 20:02 Pulse 64 05/08/23 20:02 Resp 16 05/08/23 20:02 BP 174/64 05/08/23 20:02 Pulse Ox 95 05/08/23 20:02 FiO2 21 05/07/23 15:40 Intake & Output 05/08/23 05/08/23 05/09/23 06:59 18:59 06:59 Intake Total 710 Balance 710 Intake: Oral 710 Other: Voiding Method Diaper External Catheter # Voids 3 2 1 - Labs CBC & Chem 7: 05/07/23 08:45 05/07/23 08:45 Assessment and Plan Time with Patient: Less than 30
[2023-05-09] MEDS: ACETAMINOPHEN TAB 325 MG TAB PO PRN (03:10)
[2023-05-09] MEDS: ZINC OXIDE PASTE (Z-GUARD) 1 APPLIC APPLIC TOPICAL PRN (05:30)
[2023-05-09] MEDS: LEVOTHYROXINE 75 MCG TAB PO SCH (06:28)
[2023-05-09] MEDS: MEMANTINE 10 MG TAB PO SCH ×2 (09:36→20:16)
[2023-05-09] MEDS: FERROUS SULFATE 325 MG TAB PO SCH (09:36)
[2023-05-09] MEDS: VORTIOXETINE HYDROBROMIDE 20 MG TABLET PO SCH (09:36)
[2023-05-09] MEDS: METOPROLOL TARTRATE 25 MG TAB PO SCH ×2 (09:37→20:16)
[2023-05-09] MEDS: MULTIVITAMINS, THERA 1 EACH TAB PO SCH (09:37)
[2023-05-09] MEDS: DONEPEZIL 10 MG TAB PO SCH (09:37)
[2023-05-09] MEDS: CYANOCOBALAMIN 500 MCG TAB PO SCH (09:37)
[2023-05-09] MEDS: lisinopriL 20 MG TAB PO SCH (09:37)
[2023-05-09] MEDS: DILTIAZEM CD 240 MG CAP.ER.24H PO SCH (09:37)
[2023-05-09] MEDS: PANTOPRAZOLE 40 MG TABLET PO SCH ×2 (09:37→20:16)
[2023-05-09] MEDS: Methenamine Hippurate 1 GM Tablet PO SCH ×2 (09:38→20:17)
[2023-05-09] MEDS: NYSTATIN 100,000 UNIT/GM POWD 15 GM TOPICAL SCH ×2 (09:38→20:17)
--- NOTE | 2023-05-09 15:08 | P.PN ---
Subjective Progress Note Date: 05/09/23 This is a pleasant 83-year-old patient with past medical history significant for paroxysmal atrial fibrillation, hypertension, hyperlipidemia, I put thyroid history of dementia presents to the emergency department with recurrent persistent weakness. Patient was recently admitted discharge on 04/02/2023 a dmitted for urinary tract infection and weakness. During previous hospitalization patient was also seen by cardiology secondary to A. fib and rapid ventricular response. Cardiac medications optimized She initially came because of weakness and fall and found to have urinary tract infection with metabolic encephalopathy on the top of her dementia. She was treated with ceftriaxone based on urine culture showing sensitive E. coli. Patient showed interval improvement and she was about to be discharged when she developed A. fib and RVR and foundation relations manager evaluated the patient with her Cardizem dose was increased 180 up to 240 mg and metoprolol 25 mg was added. Physical therapy recommended subacute rehab but patient could not be placed in one of them ECF because she finished her days with her insurance provider, as an alternative we sent her home with home care as the son was at bedside did not feel he is ready to put his mother in a correction Patient currently poor historian but it looks like once patient went home her son could not take care of her and she had to come to the emergency room for replacement. Patient currently somewhat confused which looks at baseline, she moves extre mities symmetrically, denies any specific complaints. 05/07/2023 Patient resting in bed today with no acute complaints. Pending input from APS and discharge planning to ECF with social work. 05/08/2023 Patients daughter and son at the bedside are updataed on the plan of care. Currently awaiting follow up from social work regarding DC planning. Her most recent UA this hospital stay has overall improved. Patient requires ECF. [facility] referral placed. 05/09/2023 Patient is evaluated today sitting up in bed. No acute complaints. She is alert 2. Has completed 3 days of IV antibiotics and no longer requires antibiotics. Review of systems CONSTITUTIONAL: No fever, no malaise, no fatigue. HEENT: No recent visual problems or hearing problems. Denied any sore throat. CARDIOVASCULAR: No orthopnea, PND, no palpitations, no syncope. PULMONARY: No shortness of breath, no cough, no hemoptysis. GASTROINTESTINAL: No diarrhea, no nausea, no vomiting, no abdominal pain. Normoactive bowel sounds. NEUROLOGICAL: No headaches, no weakness, no numbness. Physical Examination -GENERAL: The patient is confused, answers questions and follows commands, not in any acute distress. Well developed, well nourished. HEENT: Pupils are round and equally reacting to light. EOMI. No scleral icterus. No conjunctival pallor. Normocephalic, atraumatic. No pharyngeal erythema. No thyromegaly. CARDIOVASCULAR: S1 and S2 present. No murmurs, rubs, or gallops. PULMONARY: Chest is clear to auscultation, no wheezing , no crackles. ABDOMEN: Soft, nontender, nondistended, normoactive bowel sounds. No palpable organomegaly. MUSCULOSKELETAL: No joint swelling or deformity. EXTREMITIES: No cyanosis, clubbing, or pedal edema. NEUROLOGICAL: Gross neurological examination did not reveal any focal deficits. SKIN: No rashes. no petechiae. Assessment Generalized weakness requiring placement Recent Acute cystitis with history of recurrent UTI during previous admission requiring to finish her course of abx Metabolic encephalopathy secondary to above Generalized weakness secondary to above Chronic atrial fibrillation with history of rapid ventricular response dementia hypertension, uncontrolled on admission dyslipidemia GI prophylaxis DVT prophylaxis Full Code Plan automotive tire worker consult for placement to correction and APS consultation. Patient has completed 3 days of IV antibiotic therapy and no longer requires antibiotics that have been discontinued. Recommend to continue with PT OT Labs and medication were reviewed. The impression and plan of care has been dictated by Catherine Yee, Nurse Practitioner as directed. Dr. Nadia MD I have performed a history and physical examination and medical decision making of this patient, discussed the same with the dictator, and agree with the dictators assessment and plan as written, documented as a scribe. Based on total visit time, I have performed more than 50% of this visit. Objective - Vital Signs Vital signs: Vital Signs Temp 97.9 F 05/09/23 07:43 Pulse 59 L 05/09/23 09:42 Resp 16 05/09/23 09:30 BP 175/69 05/09/23 07:43 Pulse Ox 95 05/09/23 07:43 FiO2 21 05/07/23 15:40 Intake & Output 05/08/23 05/09/23 05/09/23 18:59 06:59 18:59 Output Total 100 Balance -100 Output: Urine 100 Other: Voiding Method Diaper Diaper Diaper External Catheter External Catheter External Catheter # Voids 2 1 1 # Bowel Movements 1 1 - Labs CBC & Chem 7: 05/07/23 08:45 05/07/23 08:45 Assessment and Plan Time with Patient: Less than 30
[2023-05-09] MEDS: RIVAROXABAN 15 MG TAB PO SCH (20:16)
[2023-05-09] MEDS: SENNOSIDES-DOCUSATE SODIUM 1 EACH TAB PO SCH (20:16)
[2023-05-09] MEDS: PRAVASTATIN SODIUM 80 MG TAB PO SCH (20:16)
[2023-05-10] MEDS: METOPROLOL TARTRATE 25 MG TAB PO SCH ×2 (08:33→19:48)
[2023-05-10] MEDS: MULTIVITAMINS, THERA 1 EACH TAB PO SCH (08:33)
[2023-05-10] MEDS: lisinopriL 20 MG TAB PO SCH (08:33)
[2023-05-10] MEDS: CYANOCOBALAMIN 500 MCG TAB PO SCH (08:33)
[2023-05-10] MEDS: FERROUS SULFATE 325 MG TAB PO SCH (08:33)
[2023-05-10] MEDS: DONEPEZIL 10 MG TAB PO SCH (08:33)
[2023-05-10] MEDS: DILTIAZEM CD 240 MG CAP.ER.24H PO SCH (08:33)
[2023-05-10] MEDS: MEMANTINE 10 MG TAB PO SCH ×2 (08:33→19:48)
[2023-05-10] MEDS: PANTOPRAZOLE 40 MG TABLET PO SCH ×2 (08:33→19:48)
[2023-05-10] MEDS: VORTIOXETINE HYDROBROMIDE 20 MG TABLET PO SCH (08:33)
[2023-05-10] MEDS: LEVOTHYROXINE 75 MCG TAB PO SCH (08:33)
[2023-05-10] MEDS: Methenamine Hippurate 1 GM Tablet PO SCH ×2 (08:34→19:49)
[2023-05-10] MEDS: NYSTATIN 100,000 UNIT/GM POWD 15 GM TOPICAL SCH ×2 (09:16→19:48)
[2023-05-10] MEDS: ACETAMINOPHEN TAB 325 MG TAB PO PRN ×2 (13:01→19:48)
[2023-05-10] MEDS: hydrALAZINE HCL 20 MG/ML 1 ML VIAL IVP PRN (13:27)
--- NOTE | 2023-05-10 18:59 | P.PN ---
Subjective Progress Note Date: 05/10/23 This is a pleasant 83-year-old patient with past medical history significant for paroxysmal atrial fibrillation, hypertension, hyperlipidemia, I put thyroid history of dementia presents to the emergency department with recurrent persistent weakness. Patient was recently admitted discharge on 04/02/2023 a dmitted for urinary tract infection and weakness. During previous hospitalization patient was also seen by cardiology secondary to A. fib and rapid ventricular response. Cardiac medications optimized She initially came because of weakness and fall and found to have urinary tract infection with metabolic encephalopathy on the top of her dementia. She was treated with ceftriaxone based on urine culture showing sensitive E. coli. Patient showed interval improvement and she was about to be discharged when she developed A. fib and RVR and marble polisher evaluated the patient with her Cardizem dose was increased 180 up to 240 mg and metoprolol 25 mg was added. Physical therapy recommended subacute rehab but patient could not be placed in one of them ECF because she finished her days with her insurance provider, as an alternative we sent her home with home care as the son was at bedside did not feel he is ready to put his mother in a custodial Patient currently poor historian but it looks like once patient went home her son could not take care of her and she had to come to the emergency room for replacement. Patient currently somewhat confused which looks at baseline, she moves extre mities symmetrically, denies any specific complaints. 05/07/2023 Patient resting in bed today with no acute complaints. Pending input from APS and discharge planning to ECF with social work. 05/08/2023 Patients daughter and son at the bedside are updataed on the plan of care. Currently awaiting follow up from social work regarding DC planning. Her most recent UA this hospital stay has overall improved. Patient requires ECF. [facility] referral placed. 05/09/2023 Patient is evaluated today sitting up in bed. No acute complaints. She is alert 2. Has completed 3 days of IV antibiotics and no longer requires antibiotics. 05/10/2023 Patient is evaluated today resting in bed with significant weakness. She is pleasantly confused. Patient remains off antibiotics at this time. Social work following for discharge planning. Review of systems CONSTITUTIONAL: No fever, no malaise, no fatigue. HEENT: No recent visual problems or hearing problems. Denied any sore throat. CARDIOVASCULAR: No orthopnea, PND, no palpitations, no syncope. PULMONARY: No shortness of breath, no cough, no hemoptysis. GASTROINTESTINAL: No diarrhea, no nausea, no vomiting, no abdominal pain. Normoactive bowel sounds. NEUROLOGICAL: No headaches, no weakness, no numbness. Physical Examination -GENERAL: The patient is confused, answers questions and follows commands, not in any acute distress. Well developed, well nourished. HEENT: Pupils are round and equally reacting to light. EOMI. No scleral icterus. No conjunctival pallor. Normocephalic, atraumatic. No pharyngeal erythema. No thyromegaly. CARDIOVASCULAR: S1 and S2 present. No murmurs, rubs, or gallops. PULMONARY: Chest is clear to auscultation, no wheezing , no crackles. ABDOMEN: Soft, nontender, nondistended, normoactive bowel sounds. No palpable organomegaly. MUSCULOSKELETAL: No joint swelling or deformity. EXTREMITIES: No cyanosis, clubbing, or pedal edema. NEUROLOGICAL: Gross neurological examination did not reveal any focal deficits. SKIN: No rashes. no petechiae. Assessment Generalized weakness requiring placement Recent Acute cystitis with history of recurrent UTI during previous admission requiring to finish her course of abx Metabolic encephalopathy secondary to above Generalized weakness secondary to above Chronic atrial fibrillation with history of rapid ventricular response dementia hypertension, uncontrolled on admission dyslipidemia GI prophylaxis DVT prophylaxis Full Code Plan caseworker intake consult for placement to custodial and APS consultation. Patient has completed 3 days of IV antibiotic therapy and no longer requires antibiotics that have been discontinued. Recommend to continue with PT OT Labs and medication were reviewed. The impression and plan of care has been dictated by Catherine Yee Nurse Practitioner as directed. Dr. Nadia MD I have performed a history and physical examination and medical decision making of this patient, discussed the same with the dictator, and agree with the dictators assessment and plan as written, documented as a scribe. Based on total visit time, I have performed more than 50% of this visit. Objective - Vital Signs Vital signs: Vital Signs Temp 98.7 F 05/10/23 12:47 Pulse 60 05/10/23 12:47 Resp 16 05/10/23 12:47 BP 165/66 05/10/23 14:14 Pulse Ox 94 L 05/10/23 12:47 FiO2 21 05/07/23 15:40 Intake & Output 05/09/23 05/10/23 05/10/23 18:59 06:59 18:59 Intake Total 240 Balance 240 Intake: Oral 240 Other: Voiding Method Diaper Diaper Diaper External Catheter External Catheter External Catheter # Voids 1 1 1 # Bowel Movements 1 1 - Labs CBC & Chem 7: 05/07/23 08:45 05/07/23 08:45 Assessment and Plan Time with Patient: Less than 30
[2023-05-10] MEDS: RIVAROXABAN 15 MG TAB PO SCH (19:48)
[2023-05-10] MEDS: SENNOSIDES-DOCUSATE SODIUM 1 EACH TAB PO SCH (19:48)
[2023-05-10] MEDS: PRAVASTATIN SODIUM 80 MG TAB PO SCH (19:48)
[2023-05-10] MEDS: ZINC OXIDE PASTE (Z-GUARD) 1 APPLIC APPLIC TOPICAL PRN (20:44)
[2023-05-11] MEDS: LEVOTHYROXINE 125 MCG TAB PO SCH (05:15)
[2023-05-11] MEDS ORDERED: amLODIPine 5 MG TAB PO SCH (10:15)
[2023-05-11] MEDS: MULTIVITAMINS, THERA 1 EACH TAB PO SCH (10:17)
[2023-05-11] MEDS: VORTIOXETINE HYDROBROMIDE 20 MG TABLET PO SCH (10:17)
[2023-05-11] MEDS: PANTOPRAZOLE 40 MG TABLET PO SCH (10:17)
[2023-05-11] MEDS: lisinopriL 20 MG TAB PO SCH (10:17)
[2023-05-11] MEDS: DILTIAZEM CD 240 MG CAP.ER.24H PO SCH (10:17)
[2023-05-11] MEDS: MEMANTINE 10 MG TAB PO SCH (10:17)
[2023-05-11] MEDS: CYANOCOBALAMIN 500 MCG TAB PO SCH (10:18)
[2023-05-11] MEDS: DONEPEZIL 10 MG TAB PO SCH (10:18)
[2023-05-11] MEDS: FERROUS SULFATE 325 MG TAB PO SCH (10:18)
[2023-05-11] MEDS: NYSTATIN 100,000 UNIT/GM POWD 15 GM TOPICAL SCH (10:18)
[2023-05-11] MEDS: METOPROLOL TARTRATE 25 MG TAB PO SCH (10:18)
[2023-05-11] MEDS: Methenamine Hippurate 1 GM Tablet PO SCH (10:19)
[2023-05-11 12:18] VITALS: BP 179/71; PULSE 53; RESP 18; TEMP 98.2
--- NOTE | 2023-05-11 13:41 | P.DS ---
Providers Date of admission: 05/05/23 17:50 Attending physician: Awilda Vaughan Primary care physician: Zachery Linton MD Hospital Course: Final Diagnosis Generalized weakness requiring placement Recent Acute cystitis with history of recurrent UTI during previous admission treated appropriately with antibiotics Metabolic encephalopathy secondary to above, improved Generalized weakness secondary to above Chronic atrial fibrillation with history of rapid ventricular response Dementia Hypertension, uncontrolled on admission Dyslipidemia Full Code Disharge Disposition Patient is stable for discharge to ECF. Has completed course of antibiotics for UTI from previous admission. Continue all same antibiotics. Follow up with PCP Dr. Craig and also repeat labs in 2 to 3 days. Hospital Course This is a pleasant 83-year-old patient with past medical history significant for paroxysmal atrial fibrillation, hypertension, hyperlipidemia, hypothyroid history of dementia presents to the emergency department with recurrent persistent weakness. Patient was recently admitted discharge on 04/02/2023 admitted for urinary tract infection and weakness. During previous hospitalization patient was also seen by cardiology secondary to A. fib and rapid ventricular response. Cardiac medications optimized She initially came because of weakness and fall and found to have urinary tract infection with metabolic encephalopathy on the top of her dementia. She was treated with ceftriaxone based on urine culture showing sensitive E. coli. Patient showed interval improvement and she was about to be discharged when she developed A. fib and RVR and historiography teacher evaluated the patient with her Cardizem dose was increased 180 up to 240 mg and metoprolol 25 mg was added. Physical therapy recommended subacute rehab but patient could not be placed in one of them ECF because she finished her days with her insurance provider, as an alternative we sent her home with home care as the son was at bedside did not feel he is ready to put his mother in a longterm. Patient currently poor historian but it looks like once patient went home her son could not take care of her and she had to come to the emergency room for replacement. White count 12.2 on admission, urinalysis has improved. Electrolytes and renal function stable. Viral panel negative for covid, flu, RSV. Had a chest xray showing no acute cardiopulmonary disease/process. Patient has been monitored pending ECF rehab placement due to her generalized weakness. No chest pain, no shortness of breath. No acute complaints, no dysuria, no urgency or frequency. Lungs are clear, S1 S2 auscultated. Her mentation is at baseline alert x 1 to 2 she has advanced dementia. Can D/C to rehab. Please see medication reconciliation for a list of current medications. Thank you for allowing us to participate in the care of this patient. The impression and plan of care has been dictated by Catherine Yee, Nurse Practitioner as directed. Dr. Nadia MD I have performed a history and physical examination and medical decision making of this patient, discussed the same with the dictator, and agree with the dictators assessment and plan as written, documented as a scribe. Based on total visit time, I have performed more than 50% of this visit. Patient Condition at Discharge: Stable Plan - Discharge Summary Discharge Rx Participant: No New Discharge Prescriptions: New amLODIPine [Norvasc] 5 mg PO DAILY #0 tab Continue Levothyroxine Sodium [Synthroid] 150 mcg PO SUTUWETHSA Pravastatin Sodium [Pravachol] 80 mg PO HS Multivitamins, Thera [Multivitamin (formulary)] 1 tab PO DAILY Ferrous Sulfate [Iron (65 MG Elemental)] 325 mg PO DAILY Donepezil [Aricept] 10 mg PO DAILY Memantine [Namenda] 10 mg PO BID Mirabegron [Myrbetriq] 50 mg PO DAILY Rivaroxaban [Xarelto] 15 mg PO HS Pantoprazole [Protonix] 40 mg PO BID Levothyroxine Sodium [Synthroid] 125 mcg PO MOFR Vortioxetine Hydrobromide [Trintellix] 20 mg PO DAILY Acetaminophen Tab [Tylenol] 650 mg PO Q6HR PRN tab PRN Reason: Mild Pain Or Fever > 100.5 Nystatin 100,000 Unit/gm Powd [Mycostatin Powder] 1 applic TOPICAL BID each Metoprolol Tartrate [Lopressor] 25 mg PO BID #60 tab lisinopriL [Zestril] 20 mg PO DAILY #30 tab Sennosides-Docusate Sodium [Senokot-S] 1 tab PO HS Cyanocobalamin [Vitamin B-12] 500 mcg PO DAILY Nitroglycerin Sl Tabs [Nitrostat] 0.4 mg SL Q5M PRN PRN Reason: Chest Pain Methenamine Hippurate 1 gm PO BID Brexpiprazole [Rexulti] 2 mg PO HS PRN PRN Reason: sleep/agitation Loratadine [Claritin] 10 mg PO DAILY PRN #0 PRN Reason: Sinus Symptoms Diltiazem Cd [Cardizem CD] 240 mg PO DAILY #30 cap Discontinued cefUROXime axetiL [Ceftin] 500 mg PO BID 5 Days #10 tab Discharge Medication List Levothyroxine Sodium [Synthroid] 150 mcg PO SUTUWETHSA 09/30/13 [History] Pravastatin Sodium [Pravachol] 80 mg PO HS 11/07/14 [History] Multivitamins, Thera [Multivitamin (formulary)] 1 tab PO DAILY 06/01/18 [History] Ferrous Sulfate [Iron (65 MG Elemental)] 325 mg PO DAILY 06/16/18 [History] Donepezil [Aricept] 10 mg PO DAILY 06/22/21 [History] Memantine [Namenda] 10 mg PO BID 06/22/21 [History] Mirabegron [Myrbetriq] 50 mg PO DAILY 06/22/21 [History] Sennosides-Docusate Sodium [Senokot-S] 1 tab PO HS 06/22/21 [History] Cyanocobalamin [Vitamin B-12] 500 mcg PO DAILY 07/16/21 [History] Rivaroxaban [Xarelto] 15 mg PO HS 07/16/21 [History] Pantoprazole [Protonix] 40 mg PO BID 02/23/22 [History] Levothyroxine Sodium [Synthroid] 125 mcg PO MOFR 06/05/22 [History] Nitroglycerin Sl Tabs [Nitrostat] 0.4 mg SL Q5M PRN 06/05/22 [History] Vortioxetine Hydrobromide [Trintellix] 20 mg PO DAILY 06/05/22 [History] Methenamine Hippurate 1 gm PO BID 12/24/22 [History] Brexpiprazole [Rexulti] 2 mg PO HS PRN 03/29/23 [History] Acetaminophen Tab [Tylenol] 650 mg PO Q6HR PRN tab 04/02/23 [Rx] Loratadine [Claritin] 10 mg PO DAILY PRN #0 05/04/23 [Rx] Nystatin 100,000 Unit/gm Powd [Mycostatin Powder] 1 applic TOPICAL BID each 05/04/23 [Rx] Diltiazem Cd [Cardizem CD] 240 mg PO DAILY #30 cap 05/05/23 [Rx] Metoprolol Tartrate [Lopressor] 25 mg PO BID #60 tab 05/05/23 [Rx] lisinopriL [Zestril] 20 mg PO DAILY #30 tab 05/05/23 [Rx] amLODIPine [Norvasc] 5 mg PO DAILY #0 tab 05/11/23 [Rx] Follow up Appointment(s)/Referral(s): Maryann Craig DO [REFERRING] - 1 Week Ambulatory/Diagnostic Orders: Basic Metabolic Panel [LAB.AMB] Time Frame: 3 Days, Location: None Selected Complete Blood Count w/diff [LAB.AMB] Location: None Selected Discharge Disposition: TRANSFER TO SNF/ECF
[2023-05-11] MEDS ORDERED: NA PHOS,M-B/NA PHOS,DI-BA 133 ML ENEMA RECTAL ONE (15:44)
== END 2023-05-11 17:18 | DRG 689 ==
LOC: EC 16:42 → 4SSUR 17:50 → 5NMEDONC 05-06 01:46
PROVIDERS: ADMIT Hospitalist; ATTEND Hospitalist
DX: N30.00 Acute cystitis without hematuria (principal); G93.41 Metabolic encephalopathy; F03.93 Unspecified dementia, unspecified severity, with mood disturbance; F05 Delirium due to known physiological condition; B96.20 Unspecified Escherichia coli [E. coli] as the cause of diseases classified elsewhere; F32.A Depression, unspecified; E03.9 Hypothyroidism, unspecified; E78.5 Hyperlipidemia, unspecified; I10 Essential (primary) hypertension; I48.0 Paroxysmal atrial fibrillation; K21.9 Gastro-esophageal reflux disease without esophagitis; M81.0 Age-related osteoporosis without current pathological fracture; R32 Unspecified urinary incontinence; Z11.52 Encounter for screening for COVID-19; Z87.440 Personal history of urinary (tract) infections; Z79.01 Long term (current) use of anticoagulants; Z79.890 Hormone replacement therapy; Z79.899 Other long term (current) drug therapy; Z86.010 Personal history of colon polyps; Z87.891 Personal history of nicotine dependence; Z96.641 Presence of right artificial hip joint; Z86.14 Personal history of Methicillin resistant Staphylococcus aureus infection; Z87.01 Personal history of pneumonia (recurrent); Z88.1 Allergy status to other antibiotic agents; Z88.5 Allergy status to narcotic agent; Z88.2 Allergy status to sulfonamides; Z88.8 Allergy status to other drugs, medicaments and biological substances; Z28.311 Partially vaccinated for COVID-19
CPT/HCPCS: 71045; 80048; 80053; 81001; 83735; 83880; 84100; 84484; 85025; 85610; 85730; 87636; 93005; 94760; 96361; 96374; 96375; 99285